=== PATIENT | male | born 1950 | race Caucasian/White ===

== ENCOUNTER → 2020-06-25 08:55 | Outpatient (REF) | payer MEDICARE, SELFPAY ==
--- NOTE | 2020-06-25 08:30 | CA_ITS ---
Transthoracic Echocardiogram Amended Patient (Last, First, Middle): Dom Sood, Gender: Male Date of : 1950 Age: 70 Procedure Date: 06/25/2020 Procedure Type: Transthoracic Echocardiogram Location: OP Height: 177.8 cm Weight: 86.64 kg BSA: 2.05 m2 Heart Rate: bpm BP: 122 / 70 mmHg Online Marketing Manager: Referring MD: Cody Grewal MD Symptoms: s/p AVR, CAD Study Quality: Fair ECG Rhythm: Atrial Fibrillation Conclusions: - The left ventricular systolic function is normal. The visually estimated ejection fraction is between 55-60%. - A bioprosthetic aortic valve is present. The prosthetic aortic valve appears to be functioning normally. - Mild pulmonary hypertension is present. Findings Left Ventricle Normal left ventricular cavity size. There is normal left ventricular wall thickness. The left ventricular systolic function is normal. The visually estimated ejection fraction is between 55-60%. The calculated ejection fraction is 57% by biplane method. There is no evidence of regional wall motion abnormalities. Right Ventricle Mildly increased right ventricular cavity size. There is normal right ventricular systolic function. Atria The left atrium is moderately dilated. The right atrium is normal in size. Aortic Valve A bioprosthetic aortic valve is present. The prosthetic aortic valve appears to be functioning normally. There is no aortic valve regurgitation. Mitral Valve There is moderate mitral annular calcification. There is mild mitral valve regurgitation. There is no mitral valve stenosis. Pulmonic Valve The pulmonic valve was not well visualized. Tricuspid Valve Normal tricuspid valve structure. There is mild tricuspid valve regurgitation. The right ventricular systolic pressure is 45 mmHg. Mild pulmonary hypertension is present. Great Vessels The aorta was not well visualized. Venous The inferior vena cava is normal in size and collapses greater than 50% with inspiration. Pericardium/Pleural There is no evidence of pericardial effusion. Prior Study Comparison Changes noted compared to prior study dated: 06/24/2019. RV function appears improved. Measurements 2D Linear Measurements IVSd: 0.96 0.6-0.9/0.6-1.0 cm LVIDd: 4.88 3.9-5.3/4.2-5.9 cm LVIDd Index: 2.38 2.4-3.2/2.2-3.1 cm/m2 LVIDs: 3.32 2.0-3.6 cm LVPWd: 1.05 0.7-1.1 cm Ao Root: 3.30 2.1-3.5 cm LA Diam: 4.90 2.7-3.8/3.0-4.0 cm LAIDs Index: 2.39 1.5-2.3 cm/m2 LV Mass: 219.60 67-162/88-224 g LV Mass Index: 107.12 43-95/49-115 g/m2 LVOT Diam: 1.90 3.0+(-)1.3 cm 2D Volumes LA Vol: 41.90 2D Systolic Function EF 4C: 58.50 >55% EF 2C: 57.70 >55% EF BiP: 57.30 >55% Mitral Valve MV VTI: 0.43 MV Pk Rojelio: 1.69 MV Mn Rojelio: 0.79 MV Pk Grad: 11.00 MV Mn Grad: 3.00 MV Pk E: 1.59 MV Decel Time: 229.00 E'Lateral: 10.20 E'Medial: 3.58 E/E' Med: 44.40 E/E' Lat: 15.60 PHT: 67.00 MVA PHT: 3.28 MVA Continuity: 1.47 Decel [place]: 6.93 Aortic Valve AoV Pk Rojelio: 2.03 AoV Mn Rojelio: 1.39 AoV VTI: 0.46 AoV Pk Grad: 16.00 Aov Mn Grad: 9.00 SEJAL Cont.VTI: 1.36 LVOT LVOT Pk Rojelio: 0.97 LVOT Mn Rojelio: 0.70 LVOT VTI: 0.22 LVOT Pk Grad: 4.00 LVOT Mn Grad: 2.00 LVOT Diam: 1.90 LVOT Area: 2.84 Diastolic Function MV Pk E: 1.59 E'Medial: 3.58 E/E' Med: 44.40 E' Laterial: 10.20 E/E' Lat: 15.60 Tricuspid Valve TR Pk Rojelio: 3.20 TR Pk Grad: 41.00 RVSP: 45.00 Great Vessels Aorta Ao Root-2D: 3.30 2.0-3.7 cm Pulmonary Valve PV Pk Rojelio: 0.68 Peak PV Grad: 2.00 Updated in Other Vendor System with Status of Final Cody Grewal MD electronically signed on 05/08/2021 4:06:15 PM with status of Final
== END ==
LOC: HO.CARD 08:55
PROVIDERS: PCP Internal Medicine; Visit Provider Internal Medicine
DX: I35.8 Other nonrheumatic aortic valve disorders (principal); I48.91 Unspecified atrial fibrillation; Z95.1 Presence of aortocoronary bypass graft; Z95.3 Presence of xenogenic heart valve
CPT/HCPCS: 93306

== ENCOUNTER 2020-06-27 07:52 | Outpatient (REF) | payer MEDICARE, SELFPAY ==
--- NOTE | 2020-06-27 08:00 | CT_ITS ---
EXAMINATION: CT CHEST WITHOUT CONTRAST CLINICAL INFORMATION: Pulmonary nodule COMPARISON: CT chest 03/27/2020 TECHNIQUE: Multidetector volumetric CT imaging of the chest was done. Axial MIP volume rendering provided. Sagittal and coronal reformatted images were obtained. This CT examination was performed using dose optimization techniques as appropriate, variously including the following: *Automated exposure control *Adjustment of mA and/or kV according to patient size (this includes techniques or standardized protocols for targeted exams where dose is matched to indication/reason for exam; i.e. extremities or head) *Use of iterative reconstruction technique DLP: 301 mGy-cm FINDINGS: LUNGS: The rounded soft tissue opacity at the inferolateral aspect of the fibula which is pleural-based, at the junction of the major fissure and left hemidiaphragm measures slightly smaller in the AP dimension, 2.7 cm versus 2.9 cm on the sagittal reformats. This structure has a broad junction with the pleura, and there is a small amount of loculated pleural fluid in this location with slight pleural thickening which is unchanged. Similar-appearing pleural-based soft tissue structure with underlying pleural fluid at the posteromedial aspect of the left lower lobe is also again demonstrated. This measures slightly smaller in transverse dimension. The underlying fluid/effusion has slightly decreased in size, again with mild thickening of the surrounding pleura. Areas of subpleural interlobular thickening suggesting interstitial lung disease remain stable. There is no new abnormality. MEDIASTINUM: No mediastinal or hilar lymphadenopathy. No pericardial effusion. Aortic valve prosthesis and extensive mitral annular calcifications. PLEURA: Small loculated left pleural effusions as described. AXILLA: No lymphadenopathy. UPPER ABDOMEN: Unremarkable. OSSEOUS STRUCTURES: Unremarkable. IMPRESSION: The pleural-based soft tissue structures with underlying pleural fluid and pleural thickening in the inferior lingula and posteromedial left lower lobe have slightly decreased in size since 03/27/2020, and most likely represent areas of rounded atelectasis. A PET/CT or follow-up chest CT in 6 months is recommended as continued follow-up. No new abnormalities.
== END 2020-06-27 07:53 | disposition home or self-care (01) ==
LOC: HO.CT 07:52
PROVIDERS: PCP Internal Medicine; Visit Provider Surgery
DX: R91.1 Solitary pulmonary nodule (principal); R93.89 Abnormal findings on diagnostic imaging of other specified body structures
CPT/HCPCS: 71250

== ENCOUNTER → 2020-07-18 13:33 | Outpatient (BNVA) | payer MEDICARE, SELFPAY | PROVIDERS: PCP Internal Medicine; Visit Provider Internal Medicine | DX: I48.19 Other persistent atrial fibrillation (principal); I12.9 Hypertensive chronic kidney disease with stage 1 through stage 4 chronic kidney disease, or unspecified chronic kidney disease; E11.22 Type 2 diabetes mellitus with diabetic chronic kidney disease; N18.9 Chronic kidney disease, unspecified; I35.8 Other nonrheumatic aortic valve disorders; E78.5 Hyperlipidemia, unspecified; D75.82 Heparin induced thrombocytopenia (HIT); K92.2 Gastrointestinal hemorrhage, unspecified; Z95.3 Presence of xenogenic heart valve; Z95.1 Presence of aortocoronary bypass graft; Z98.890 Other specified postprocedural states | CPT/HCPCS: 99212 ==

== ENCOUNTER → 2020-07-27 09:29 | Outpatient (BNVA) | payer MEDICARE, SELFPAY | PROVIDERS: PCP Internal Medicine; Referring Provider Internal Medicine; Visit Provider Surgery | DX: Z76.89 Persons encountering health services in other specified circumstances (principal) ==

== ENCOUNTER → 2020-09-11 10:00 | Outpatient (BNVA) | payer MEDICARE, SELFPAY | PROVIDERS: PCP Internal Medicine; Visit Provider Internal Medicine | DX: I48.19 Other persistent atrial fibrillation (principal); Z95.3 Presence of xenogenic heart valve; Z95.1 Presence of aortocoronary bypass graft; I12.9 Hypertensive chronic kidney disease with stage 1 through stage 4 chronic kidney disease, or unspecified chronic kidney disease; E11.22 Type 2 diabetes mellitus with diabetic chronic kidney disease; N18.9 Chronic kidney disease, unspecified; D75.82 Heparin induced thrombocytopenia (HIT); E78.5 Hyperlipidemia, unspecified; Z79.82 Long term (current) use of aspirin; Z79.01 Long term (current) use of anticoagulants | CPT/HCPCS: 99212 ==

== ENCOUNTER 2020-11-08 08:48 | Outpatient (REF) | payer MEDICARE, SELFPAY ==
[2020-11-08 10:20] LABS: Blood Urea Nitrogen 28 mg/dL (9-16); Estimated Glomerular Filt Rate 51
[2020-11-08 10:23] LABS: Alanine Aminotransferase 14 U/L (0-40); Alkaline Phosphatase 172 U/L (39-117); Aspartate Amino Transferase 15 U/L (5-37); Bilirubin Direct 0.4 mg/dL (0.0-0.5); Bilirubin Total 0.9 mg/dL (0.0-1.0); Cholesterol 166 mg/dL; HDL Cholesterol 25 mg/dL; LDL Cholesterol Calculated 128 mg/dl; Total Protein 7.7 g/dL (6.5-8.0); Triglycerides 69 mg/dL
== END 2020-11-08 08:49 | disposition home or self-care (01) ==
LOC: HO.LAB 08:48
PROVIDERS: PCP Internal Medicine; Referring Provider Internal Medicine; Visit Provider Internal Medicine
DX: R79.89 Other specified abnormal findings of blood chemistry (principal); I25.10 Atherosclerotic heart disease of native coronary artery without angina pectoris; E78.5 Hyperlipidemia, unspecified; Z95.1 Presence of aortocoronary bypass graft
CPT/HCPCS: 36415; 80061; 80076; 82565; 84520

== ENCOUNTER 2020-11-28 10:16 | Outpatient (REF) | payer MEDICARE, SELFPAY ==
[2020-11-28 11:40] LABS: Estimated Average Glucose 243 mg/dL; Hemoglobin A1c % 10.1 %
[2020-11-28 11:47] LABS: Alanine Aminotransferase 12 U/L (0-40); Alkaline Phosphatase 176 U/L (39-117); Anion Gap 12 (12-20); Aspartate Amino Transferase 17 U/L (5-37); Bilirubin Total 1.1 mg/dL (0.0-1.0); Blood Urea Nitrogen 37 mg/dL (9-16); Carbon Dioxide 25 mmol/L (22-29); Chloride 102 mmol/L (96-108); Cholesterol 110 mg/dL; Estimated Glomerular Filt Rate 38; Glucose Random 291 mg/dL (60-115); HDL Cholesterol 24 mg/dL; LDL Cholesterol Calculated 67 mg/dl; Potassium 4.2 mmol/L (3.3-5.1); Sodium 135 mmol/L (135-145); Triglycerides 95 mg/dL
[2020-11-28 12:03] LABS: Creatinine Urine 54.73 mg/dL; Microalbum/Creatinine Ratio Ur 158.9 ug/mg cr
[2020-11-28 12:06] LABS: Thyroid Stimulating Hormone 2.87 uIU/mL (0.32-4.0)
== END 2020-11-28 10:17 | disposition home or self-care (01) ==
LOC: HO.LAB 10:16
PROVIDERS: PCP Internal Medicine; Visit Provider Nurse Practitioner Family
DX: E11.65 Type 2 diabetes mellitus with hyperglycemia (principal)
CPT/HCPCS: 36415; 80053; 80061; 82043; 83036; 84443

== ENCOUNTER → 2021-01-09 09:11 | Outpatient (BNVA) | payer MEDICARE, SELFPAY | PROVIDERS: PCP Internal Medicine; Visit Provider Internal Medicine | DX: I35.8 Other nonrheumatic aortic valve disorders (principal); I48.19 Other persistent atrial fibrillation; E11.22 Type 2 diabetes mellitus with diabetic chronic kidney disease; I12.9 Hypertensive chronic kidney disease with stage 1 through stage 4 chronic kidney disease, or unspecified chronic kidney disease; N18.9 Chronic kidney disease, unspecified; D75.82 Heparin induced thrombocytopenia (HIT); K92.2 Gastrointestinal hemorrhage, unspecified; Z95.1 Presence of aortocoronary bypass graft; Z95.3 Presence of xenogenic heart valve | CPT/HCPCS: 99212 ==

== ENCOUNTER 2021-01-15 08:14 | Outpatient (REF) | payer MEDICARE, SELFPAY ==
--- NOTE | ~2021-01-15 | CT_ITS ---
EXAMINATION: CT CHEST WITHOUT CONTRAST CLINICAL INFORMATION: Pulmonary nodule COMPARISON: Previous chest CT most recent June 2020 TECHNIQUE: Multidetector volumetric CT imaging of the chest was done. Axial MIP volume rendering provided. Sagittal and coronal reformatted images were obtained. This CT examination was performed using dose optimization techniques as appropriate, variously including the following: *Automated exposure control *Adjustment of mA and/or kV according to patient size (this includes techniques or standardized protocols for targeted exams where dose is matched to indication/reason for exam; i.e. extremities or head) *Use of iterative reconstruction technique DLP: 237 mGy-cm FINDINGS: LUNGS: There is volume loss to the left lower lobe. There is a 2.5 cm nodule in the inferior segment of the lingula axial image 37 series 3 that is stable. This is continuous with a triangular-shaped and pleural-based soft tissue extending to the lateral pleural surface and left pleural fissure. This area measures 4.2 x 5.6 cm axial image 38 series 2 and likely represents loculated pleural fluid and is unchanged. There is a peripheral or subpleural density in the posterior basal left lower lobe. This measures 1.1 x 4.2 cm in AP and transverse dimension axial image 33 series 4. This has a swirled central and bronchovascular pattern is not characteristic of round atelectasis. This is unchanged. There is adjacent left small loculated pleural effusion and pleural thickening. MEDIASTINUM: The heart is enlarged. There is a prosthetic aortic valve. There is coronary artery calcification question post-CABG changes. There is no pericardial effusion. There are small mediastinal lymph nodes. No enlarged lymph nodes are seen. PLEURA: There is a small loculated left pleural effusion with a split pleural sign that appears unchanged. There is no right pleural effusion. AXILLA: No lymphadenopathy. UPPER ABDOMEN: Unremarkable. OSSEOUS STRUCTURES: There are degenerative changes of the spine. United median sternotomy. CT/CT chest wo con IMPRESSION: Stable volume loss to the left lower lobe. Stable round atelectasis at the knee in the inferior segment of the lingula and posterior basal left lower lobe and chronic small loculated left pleural effusion. Enlarged heart. Postoperative changes from aortic valve replacement and probable CABG.
== END 2021-01-15 08:15 | disposition home or self-care (01) ==
LOC: HO.CT 08:14
PROVIDERS: Visit Provider Surgery
DX: R91.1 Solitary pulmonary nodule (principal)
CPT/HCPCS: 71250

== ENCOUNTER → 2021-02-01 08:45 | Outpatient (BNVA) | payer MEDICARE, SELFPAY | PROVIDERS: PCP Internal Medicine; Visit Provider Surgery | DX: R91.1 Solitary pulmonary nodule (principal); I48.19 Other persistent atrial fibrillation; Z79.899 Other long term (current) drug therapy; Z79.4 Long term (current) use of insulin; Z95.1 Presence of aortocoronary bypass graft; Z95.3 Presence of xenogenic heart valve | CPT/HCPCS: 99212 ==

== ENCOUNTER 2021-02-12 10:10 | Outpatient (REF) | payer MEDICARE, SELFPAY | END 2021-02-12 10:11 | disposition home or self-care (01) | LOC: HO.PET 10:10 | PROVIDERS: Visit Provider Surgery | DX: Z13.89 Encounter for screening for other disorder (principal) ==

== ENCOUNTER 2021-02-14 11:48 | Day surgery (SDC) | payer MEDICARE, SELFPAY ==
[2021-02-14] VITALS (7 sets, daily range): BP systolic 134–161; BP diastolic 68–80; PULSE 54–82; RESP 18–22; TEMP 36.6; O2SAT 94–96; BMI 29.7
--- NOTE | ~2021-02-14 | XR_ITS ---
EXAMINATION: XR CHEST CLINICAL INFORMATION: Status post lingula lung biopsy COMPARISON: CT earlier on same day as well as January 15, 2021 and chest x-ray of March 27, 2020 TECHNIQUE: Respiratory infection. AP portable views of the chest. FINDINGS: There is a left base density is present with some pleural thickening adjacent to it. No pneumothorax is evident. No significant pleural effusion. Heart normal size. No evidence of pulmonary edema. Status post median sternotomy. XR/XR chest 2V IMPRESSION: No post lung biopsy pneumothorax appreciated.
--- NOTE | ~2021-02-14 | CT_ITS ---
PROCEDURE: CT GUIDED BIOPSY, LUNG CLINICAL INFORMATION: Solitary pulmonary nodule in the lingula COMPARISON: CT chest 01/15/2021 TECHNIQUE: Following explaining CT fluoroscopy-guided lingular mass biopsy procedure, benefits and risks, written consent was obtained. Patient was placed supine on fluoroscopy table and preliminary CT imaging was obtained through the left lower chest. An optimal site was selected along the left lateral chest wall and marked. A large area of left lateral chest was cleaned in usual sterile manner with 2% Chlorhexidine solution. Sterile drape applied postprocedure. 1% lidocaine was injected. Through a small skin incision a 22-gauge guide needle was advanced. However, the guide needle could not be advanced due to interposed ribs in between. An optimal site was selected slightly lower down several times and 1% lidocaine was administered. The 22-gauge guide needle was maneuvered between the rib spaces into the left pleural space and several coaxial biopsies were obtained through the left lingular mass. Also a 22-gauge biopsy gun was administered and a 2 pass biopsy was performed. Postprocedure guide needle was withdrawn and repeat imaging was performed through the left lower lobe and lingula. Complete hemostasis was achieved at the puncture site. Sterile bandage applied post procedure. Patient tolerated procedure extremely well. Conscious sedation was utilized during exam and patient monitored for [address] examination was performed using dose optimization techniques as appropriate, variously including the following: *Automated exposure control *Adjustment of mA and/or kV according to patient size (this includes techniques or standardized protocols for targeted exams where dose is matched to indication/reason for exam; i.e. extremities or head) *Use of iterative reconstruction technique DLP: 541 mGy-cm FINDINGS: On preliminary CT imaging there is a 2.6 x 2.4 cm lingular round mass/nodule/consolidation. CT fluoroscopy-guided lingular mass/nodule coaxial fine-needle biopsy performed at least 5 times with 2 core biopsies performed with a biopsy gun. Postprocedure CT reveals no visible pneumothorax. There is a loculated left lateral pleural effusion. Soft tissue density along the left posterior segment lower lobe atelectasis and/or loculated pleural effusion is stable. CT/CT biopsy lung LT IMPRESSION: CT fluoroscopy-guided lingular mass/nodule fine-needle and core biopsy performed. Preliminary pathology results revealed hemorrhagic cells. No pathological cells visualized. Further pathology evaluation to follow.
[2021-02-14 12:06] LABS: Glucose, Whole Blood 139 mg/dL (60-115)
[2021-02-14 12:10] LABS: MANUAL DIFF FLAG NO
[2021-02-14 12:13] LABS: Basophils Absolute Auto 0.1 X10*3/uL (0.0-0.2); Basophils Percent Auto 0.7 % (0-2); Eosinophils Absolute Auto 0.2 X10*3/uL (0.0-0.4); Eosinophils Percent Auto 2.6 % (0-4); Hematocrit 41.6 % (42-52); Hemoglobin 13.3 g/dl (14.0-18.0); Imm Gran Abs Auto 0.03 X10*3/uL (0.00-0.03); Imm Gran Pct Auto 0.4 % (0.0-0.4); Lymphocytes Absolute Auto 1.1 X10*3/uL (1.2-4.9); Mean Corpuscular Hemoglobin 28.2 pg (27.0-33.0); Mean Corpuscular Volume 88.1 fL (80-98); Mean Platelet Volume 10.8 fL (9.4-12.4); Monocytes Absolute Auto 0.7 X10*3/uL (0.1-1.2); Monocytes Percent Auto 8.6 % (2-11); Neutrophils Absolute Auto 6.1 X10*3/uL (2.0-8.3); Neutrophils Percent Auto 74.7 % (45-73); Platelet Count 181 X10*3/uL (160-400); Red Blood Count 4.72 X10*6/uL (4.60-5.80); White Blood Count 8.2 X10*3/uL (4.8-10.8)
[2021-02-14 12:18] LABS: INTERNATIONAL NORM RATIO 1.3 (0.9-1.1); Prothrombin Time 14.9 SEC (10.8-13.0)
[2021-02-14 12:38] LABS: Anion Gap 14 (12-20); Blood Urea Nitrogen 26 mg/dL (9-16); Carbon Dioxide 22 mmol/L (22-29); Chloride 107 mmol/L (96-108); Creatinine Clr Calc Pharmacy 53.9; Estimated Glomerular Filt Rate 51; Sodium 139 mmol/L (135-145)
== END 2021-02-14 17:06 | disposition home or self-care (01) ==
PROVIDERS: Radiology Diagnostic Radiology; PCP Internal Medicine; Visit Provider Radiology Diagnostic Radiology
DX: R91.1 Solitary pulmonary nodule (principal); E11.22 Type 2 diabetes mellitus with diabetic chronic kidney disease; I12.9 Hypertensive chronic kidney disease with stage 1 through stage 4 chronic kidney disease, or unspecified chronic kidney disease; N18.9 Chronic kidney disease, unspecified; Z79.4 Long term (current) use of insulin; I48.19 Other persistent atrial fibrillation; Z79.01 Long term (current) use of anticoagulants; Z79.899 Other long term (current) drug therapy; Z95.1 Presence of aortocoronary bypass graft; Z95.3 Presence of xenogenic heart valve; Z88.8 Allergy status to other drugs, medicaments and biological substances; Z88.2 Allergy status to sulfonamides
CPT/HCPCS: 10009; 32408; 36415; 71046; 80051; 82565; 82947; 84520; 85025; 85610; 85730; 88172; 88173; 88177; 88305; 99152; 99153; J2250; J3010

== ENCOUNTER 2021-02-19 11:03 | Outpatient (REF) | payer MEDICARE, SELFPAY ==
--- NOTE | ~2021-02-19 | PE_ITS ---
EXAMINATION: CT PET FUSION SKULL TO THIGH CLINICAL INFORMATION: Solitary pulmonary nodule. COMPARISON: CT chest 01/15/2021. TECHNIQUE: Following intravenous administration of 10.8 mCi of F-18 FDG in left antecubital vein, whole-body emission scan was obtained approximately 90 minutes later. Subsequently 3.75 mm thin transmission scan was obtained without oral or IV contrast. 3-D reconstructions and color fusion was performed on a separate workstation. Serum baseline glucose measures 81 mg/dl. Radiation dose measures DLP 847. FINDINGS: On PET imaging there is no abnormal metabolic activity seen in the lingular round lesion or left lower lobe posterior basal segment. These are likely postsurgical changes or atelectasis. No abnormal activity seen in the lung parenchyma or the mediastinum to suspect any primary or metastatic lesions or lymphadenopathy. There is no abnormal metabolic activity in the skull base or the neck. There is no abnormal metabolic activity seen in the abdomen or pelvis. Normal metabolic activity seen in the kidneys and the bladder. On CT imaging there is persistent round 2.6 cm nodule in the lingula and subpleural density in the posterior basal segment left lower lobe. Rest of lungs are unremarkable. No abnormal mediastinal mass or lymph node seen. There are coronary artery and aortic calcifications. There is median sternotomy sutures from previous intervention. Visualized thyroid lobes, submandibular and parotid glands are symmetrical and unremarkable. The airway is widely patent. No neck mass or lymphadenopathy seen. There are dental amalgam-related extensive artifacts in the oral cavity. Visualized sinuses are clear. No abnormality seen in the visualized brain parenchyma. Visualized liver, spleen, pancreas and bilateral adrenal glands are unremarkable. There is scattered stool seen throughout the colon without significant distention. PET/PET CT fusion skull to thigh IMPRESSION: No abnormal metabolic activity seen in the lingula or the left lower lobe posterior basal segment at this time. These findings most likely represent atelectasis in the lingula and left lower lobe or nonspecific pleural thickening in the left lower lobe posterior basal segment. The findings, however, are stable compared to previous CT 01/15/2021.
== END 2021-02-19 11:04 | disposition home or self-care (01) ==
LOC: HO.PET 11:03
PROVIDERS: PCP Internal Medicine; Visit Provider Surgery
DX: Z13.89 Encounter for screening for other disorder (principal)

== ENCOUNTER → 2021-03-01 09:56 | Outpatient (BNVA) | payer MEDICARE, SELFPAY | PROVIDERS: PCP Internal Medicine; Visit Provider Surgery | DX: R91.1 Solitary pulmonary nodule (principal); Z79.4 Long term (current) use of insulin; Z79.899 Other long term (current) drug therapy | CPT/HCPCS: 99212 ==

== ENCOUNTER → 2021-04-30 09:56 | Outpatient (BNVA) | payer MEDICARE, SELFPAY | PROVIDERS: PCP Internal Medicine; Referring Provider Internal Medicine; Visit Provider Internal Medicine | DX: I35.8 Other nonrheumatic aortic valve disorders (principal); I48.19 Other persistent atrial fibrillation; E78.5 Hyperlipidemia, unspecified; K92.2 Gastrointestinal hemorrhage, unspecified; E11.22 Type 2 diabetes mellitus with diabetic chronic kidney disease; I12.9 Hypertensive chronic kidney disease with stage 1 through stage 4 chronic kidney disease, or unspecified chronic kidney disease; N18.9 Chronic kidney disease, unspecified; Z95.1 Presence of aortocoronary bypass graft; Z95.3 Presence of xenogenic heart valve; D75.82 Heparin induced thrombocytopenia (HIT); Z79.01 Long term (current) use of anticoagulants; Z79.4 Long term (current) use of insulin | CPT/HCPCS: 99212 ==

== ENCOUNTER → 2021-05-03 07:10 | Outpatient (REF) | payer MEDICARE, SELFPAY ==
--- NOTE | 2021-05-03 07:12 | CA_ITS ---
Transthoracic Echocardiogram Patient (Last, First, Middle): Dom Sood, Gender: Male Date of : 1950 Age: 71 Procedure Date: 05/03/2021 Procedure Type: Transthoracic Echocardiogram Location: OP Height: 175.26 cm Weight: 88. kg BSA: 2.04 m2 Heart Rate: bpm BP: 140 / 66 mmHg Hitting Coach: SARAH Mcgrath MD: Cody Grewal MD Symptoms: [facility] – [place] Study Quality: Fair ECG Rhythm: Atrial Fibrillation Conclusions: - The left ventricular systolic function is normal. The visually estimated ejection fraction is between 55-60%. - There is severely decreased right ventricular systolic function. - The left atrium is severely dilated. - A bioprosthetic aortic valve is present. The prosthetic aortic valve appears to be functioning normally. - There is severe mitral annular calcification. - Mild to moderate pulmonary hypertension is present. Findings Left Ventricle Normal left ventricular cavity size. There is mildly increased left ventricular wall thickness. The left ventricular systolic function is normal. The visually estimated ejection fraction is between 55-60%. There is no evidence of regional wall motion abnormalities. Diastolic function is indeterminate on the basis of available data. Right Ventricle Mildly increased right ventricular cavity size. There is severely decreased right ventricular systolic function. TAPSE seems <1cm, but difficult to measure due to atrial fibrillation, PVCs. Atria The left atrium is severely dilated. The right atrium is normal in size. Aortic Valve A bioprosthetic aortic valve is present. The prosthetic aortic valve appears to be functioning normally. The peak aortic velocity is 2.00 m/s with a calculated peak gradient of 16 mmHg. The mean gradient is 9 mmHg. The aortic valve area is 1.73 cm2. Mitral Valve There is severe mitral annular calcification. There is mild mitral valve regurgitation. There is no mitral valve stenosis. mean gradient across the mitral valve 4 mm Hg at 45/Min. Possibly some mitral stenosis. Pulmonic Valve The pulmonic valve was not well visualized. There is trace pulmonic valve regurgitation. Tricuspid Valve Normal tricuspid valve structure. There is mild tricuspid valve regurgitation. The right ventricular systolic pressure is 49 mmHg. Mild to moderate pulmonary hypertension is present. Great Vessels The asc aorta is normal in size. Venous The inferior vena cava is mildly dilated and collapses greater than 50% with inspiration. Pericardium/Pleural There is no evidence of pericardial effusion. Prior Study Comparison No significant change compared to prior study dated: 06/25/2020. Measurements 2D Linear Measurements RVIDd: 3.91 RVIDd Index: 1.92 IVSd: 1.01 0.6-0.9/0.6-1.0 cm LVIDd: 4.93 3.9-5.3/4.2-5.9 cm LVIDd Index: 2.42 2.4-3.2/2.2-3.1 cm/m2 LVIDs: 3.99 2.0-3.6 cm LVPWd: 1.58 0.7-1.1 cm Ao Root: 2.60 2.1-3.5 cm LA Diam: 5.50 2.7-3.8/3.0-4.0 cm LAIDs Index: 2.70 1.5-2.3 cm/m2 LV Mass: 317.65 67-162/88-224 g LV Mass Index: 155.71 43-95/49-115 g/m2 LVOT Diam: 2.20 3.0+(-)1.3 cm 2D Systolic Function EF 4C: 56.70 >55% EF 2C: 52.80 >55% EF BiP: 53.70 >55% Mitral Valve MV VTI: 0.67 MV Pk Rojelio: 2.18 MV Mn Rojelio: 0.86 MV Pk Grad: 19.00 MV Mn Grad: 4.00 PHT: 131.00 MVA PHT: 1.68 MVA Continuity: 1.81 Decel [place]: 4.96 Aortic Valve AoV Pk Rojelio: 2.00 AoV Mn Rojelio: 1.46 AoV VTI: 0.70 AoV Pk Grad: 16.00 Aov Mn Grad: 9.00 SEJAL Cont.VTI: 1.73 LVOT LVOT Pk Rojelio: 1.06 LVOT Mn Rojelio: 0.79 LVOT VTI: 0.32 LVOT Pk Grad: 4.00 LVOT Mn Grad: 3.00 LVOT Diam: 2.20 LVOT Area: 3.80 Right Ventricle TVS' Rojelio: 6.00 Tricuspid Valve TR Pk Rojelio: 3.21 TR Pk Grad: 41.00 RA Press: 8.00 RVSP: 49.00 Great Vessels Aorta Ao Root-2D: 2.60 2.0-3.7 cm Ao Asc: 3.00 2.1-3.4 cm Ao Arch: 3.20 Updated in Other Vendor System with Status of Final Cody Grewal MD electronically signed on 05/04/2021 12:19:16 PM with status of Final
== END ==
LOC: HO.CARD 07:10
PROVIDERS: Visit Provider Internal Medicine
DX: I35.8 Other nonrheumatic aortic valve disorders (principal)
CPT/HCPCS: 93306

== ENCOUNTER → 2021-06-18 12:16 | Outpatient (BNVA) | payer MEDICARE, SELFPAY | PROVIDERS: PCP Internal Medicine; Referring Provider Internal Medicine; Visit Provider Internal Medicine | DX: I35.8 Other nonrheumatic aortic valve disorders (principal); I48.19 Other persistent atrial fibrillation; E11.8 Type 2 diabetes mellitus with unspecified complications; E11.22 Type 2 diabetes mellitus with diabetic chronic kidney disease; I12.9 Hypertensive chronic kidney disease with stage 1 through stage 4 chronic kidney disease, or unspecified chronic kidney disease; N18.9 Chronic kidney disease, unspecified; E78.5 Hyperlipidemia, unspecified; D75.82 Heparin induced thrombocytopenia (HIT); K92.2 Gastrointestinal hemorrhage, unspecified; Z95.1 Presence of aortocoronary bypass graft | CPT/HCPCS: 93005; 99212 ==

== ENCOUNTER 2021-09-15 12:48 | Inpatient (IN) | payer MEDICARE, SELFPAY ==
[2021-09-15] VITALS (7 sets, daily range): BP systolic 103–138; BP diastolic 44–68; PULSE 75–108; RESP 18–34; TEMP 37.1–38.8; O2SAT 91–96
--- NOTE | ~2021-09-15 | MR_ITS ---
EXAMINATION: MR OF THE FOOT WITH AND WITHOUT CONTRAST, LEFT CLINICAL INFORMATION: Wound along the lateral/plantar region of the left foot. Rule out osteomyelitis/foot ulcer. COMPARISON: 04/18/2019 TECHNIQUE: Multiplanar MR imaging was obtained through the left foot on a 1.5 Lilian magnet before and after intravenous administration of 10 mL Gadavist. FINDINGS: Postsurgical changes are evident at the lateral aspect of the midfoot corresponding to resection of the 5th metatarsal. Metal artifact arises at the screws in the 2nd and 3rd metatarsal heads. There is mild edema signal within the 3rd and 4th metatarsal bases at the 3rd and 4th TMT joints which is favored to be degenerative in nature, related to the degenerative arthritis at the articulation between the bases as well as the degenerative arthritis of both the 3rd and 4th TMT joints. No fractures are identified in these regions. No specific findings of osteomyelitis. Cortical irregularity at the lateral margin of the 4th metatarsal base is likely related to a previously degenerated articulation with the 5th metatarsal base. There is mild osteoarthritis in the talocrural and subtalar joints as well as the navicular cuneiform and MTP joints. There is subcutaneous edema and mild enhancement at the lateral aspect of the midfoot without an associated abscess. No fluid collections. Punctate foci of micrometallic artifact in this region correspond to postoperative change. There is subtle skin irregularity at the plantar margin of the midfoot deep to the 5th metatarsal base which may correspond to a local soft tissue ulceration. This measures approximately 1.6 x 1.2 cm in area. There is atrophy and fatty replacement of the intrinsic foot musculature. Increased T2 signal within the musculature is related to denervation edema. Central band of the plantar fascia is thickened and irregular. MR/MR foot LT wo/w con IMPRESSION: Probable small skin ulceration at the plantar aspect of the midfoot at the level of the 4th metatarsal base. No evidence of osteomyelitis or abscess.
--- NOTE | ~2021-09-15 | CT_ITS ---
EXAMINATION: CT HEAD WITHOUT CONTRAST CT CERVICAL SPINE WITHOUT CONTRAST CLINICAL INFORMATION: Status post fall. Trauma to the head and neck. COMPARISON: CT head and cervical spine of 04/15/2019 TECHNIQUE: Multidetector volumetric CT imaging of the head and cervical spine is acquired without intravenous contrast administration. Postprocessing is performed at a dedicated workstation. Multiplanar reformatted images are submitted. This CT scan was performed using dose optimization techniques as appropriate to a performed exam including the following: *Automated exposure control *Adjustment of mA and/or kV according to patient size (this includes techniques or standardized protocols for targeted exams were dose is matched to indication/reason for exam; i.e. extremities or head) *Use of iterative reconstruction technique DLP: 1160 mGy-cm. FINDINGS: CT HEAD: There is [id number] global volume loss with proportionate dilatation of the ventricles and cortical sulci. Miller to white matter differentiation is well preserved. There is no evidence of acute intracranial hemorrhage, midline shift, mass effect, acute territorial infarction or abnormal extra-axial fluid collection. Osseous canal rim is intact. No significant calvarial soft tissue swelling or hematoma is noted. The visualized paranasal sinuses and mastoid air cells are well-aerated. Middle ear cavities are well-aerated. Moderate calcific atherosclerosis cysts of the internal carotid and vertebral arteries. CT CERVICAL SPINE: Severe degenerative disc disease is noted at C5-C6 with erosive and sclerotic endplate marrow changes and severe narrowing of the intervertebral disc space. There is minimal posterior subluxation of C5 over C6. The vertebral body heights and alignment are otherwise maintained. Posterior elements are intact and in normal alignment. Atlantoaxial and atlantooccipital alignments are maintained. No evidence of tight central canal or neural foraminal stenosis. No evidence of prevertebral soft tissue swelling. The airway is patent. No focal thyroid nodule. Evaluation of the lung apices is somewhat limited due to motion artifacts; however, no acute abnormality is noted. CT/CT head/brain wo con IMPRESSION: 1. No evidence of acute intracranial abnormality. Specifically there is no evidence of acute intracranial hemorrhage. 2. No evidence of acute fracture or traumatic subluxation in the cervical spine. Severe disc space narrowing with associated erosive and sclerotic endplate marrow changes at C5-C6 with minimal posterior subluxation of C5 over C6, findings are new/significantly increased compared to previous CT scan of 04/15/2019 and most probably represents severe degenerative changes. Another possibility would be sequela of infectious or inflammatory process, recommend clinical correlation for history of prior infectious/inflammatory process in the region.
--- NOTE | ~2021-09-15 | CT_ITS ---
EXAMINATION: CT HEAD WITHOUT CONTRAST CT CERVICAL SPINE WITHOUT CONTRAST CLINICAL INFORMATION: Status post fall. Trauma to the head and neck. COMPARISON: CT head and cervical spine of 04/15/2019 TECHNIQUE: Multidetector volumetric CT imaging of the head and cervical spine is acquired without intravenous contrast administration. Postprocessing is performed at a dedicated workstation. Multiplanar reformatted images are submitted. This CT scan was performed using dose optimization techniques as appropriate to a performed exam including the following: *Automated exposure control *Adjustment of mA and/or kV according to patient size (this includes techniques or standardized protocols for targeted exams were dose is matched to indication/reason for exam; i.e. extremities or head) *Use of iterative reconstruction technique DLP: 1160 mGy-cm. FINDINGS: CT HEAD: There is [id number] global volume loss with proportionate dilatation of the ventricles and cortical sulci. Miller to white matter differentiation is well preserved. There is no evidence of acute intracranial hemorrhage, midline shift, mass effect, acute territorial infarction or abnormal extra-axial fluid collection. Osseous canal rim is intact. No significant calvarial soft tissue swelling or hematoma is noted. The visualized paranasal sinuses and mastoid air cells are well-aerated. Middle ear cavities are well-aerated. Moderate calcific atherosclerosis cysts of the internal carotid and vertebral arteries. CT CERVICAL SPINE: Severe degenerative disc disease is noted at C5-C6 with erosive and sclerotic endplate marrow changes and severe narrowing of the intervertebral disc space. There is minimal posterior subluxation of C5 over C6. The vertebral body heights and alignment are otherwise maintained. Posterior elements are intact and in normal alignment. Atlantoaxial and atlantooccipital alignments are maintained. No evidence of tight central canal or neural foraminal stenosis. No evidence of prevertebral soft tissue swelling. The airway is patent. No focal thyroid nodule. Evaluation of the lung apices is somewhat limited due to motion artifacts; however, no acute abnormality is noted. CT/CT cervical spine wo con IMPRESSION: 1. No evidence of acute intracranial abnormality. Specifically there is no evidence of acute intracranial hemorrhage. 2. No evidence of acute fracture or traumatic subluxation in the cervical spine. Severe disc space narrowing with associated erosive and sclerotic endplate marrow changes at C5-C6 with minimal posterior subluxation of C5 over C6, findings are new/significantly increased compared to previous CT scan of 04/15/2019 and most probably represents severe degenerative changes. Another possibility would be sequela of infectious or inflammatory process, recommend clinical correlation for history of prior infectious/inflammatory process in the region.
--- NOTE | ~2021-09-15 | XR_ITS ---
EXAMINATION: XR CHEST CLINICAL INFORMATION: Central line confirmation COMPARISON: 02/14/2021 TECHNIQUE: Frontal view of the chest was obtained. FINDINGS: Right internal jugular central venous catheter terminates near the cavoatrial junction. Cardiac leads overlie the chest. Median sternotomy wires appear intact. The lungs are well expanded. There is no focal consolidation, edema, or effusion. No pneumothorax. The cardiomediastinal silhouette is unchanged. No acute osseous abnormality. XR/XR chest 1V IMPRESSION: Right internal jugular central venous catheter terminates near the cavoatrial junction. No pneumothorax.
--- NOTE | ~2021-09-15 | XR_ITS ---
EXAMINATION: XR CHEST CLINICAL INFORMATION: Post right upper extremity PICC insertion. COMPARISON: Chest radiograph dated from 09/16/2021. TECHNIQUE: AP view of the chest was obtained. FINDINGS: The tip of the right-sided PICC line appears to terminate at the level of the proximal right atrium. Unchanged prominence of the cardiomediastinal silhouette. Intact sternotomy wires and mediastinal clips. EKG wires overlie the patient. No pneumothorax or pleural effusions. Interstitial prominence is slightly increase since 09/16/2021. No focal airspace opacities. No acute osseous abnormalities. XR/XR chest 1V IMPRESSION: Right-sided PICC line terminates at the level of the proximal right atrium, if indicated consider slight retraction to the level of the cavoatrial junction. Increased interstitial markings since 09/16/2021 of uncertain etiology. Differentials include worsening pulmonary edema or an atypical infectious/inflammatory process of the small airways. No pneumothorax.
--- NOTE | ~2021-09-15 | XR_ITS ---
EXAMINATION: XR FOOT, LEFT CLINICAL INFORMATION: Weak with COMPARISON: None at this time. TECHNIQUE: AP, lateral, and oblique views of the left foot. FINDINGS: Patient is status post resection of the fifth metatarsal bone and proximal phalanx. Screws are seen within the metatarsal heads of the second and third digits with bony deformity. There is significant degenerative change involving the third metatarsophalangeal joint. There is fusion of the second and third proximal interphalangeal joints. There are degenerative changes with spurring seen involving the first through fourth tarsometatarsal joints. No acute fracture appreciated. XR/XR foot LT 2V IMPRESSION: Chronic abnormalities of the left foot without evidence of acute fracture or definite osteomyelitis. MRI may be of help in further evaluation for this.
--- NOTE | ~2021-09-15 | CT_ITS ---
EXAMINATION: CT CHEST, ABDOMEN AND PELVIS WITHOUT CONTRAST CLINICAL INFORMATION: Fall. Posterior chest wall ecchymosis. Left flank pain COMPARISON: CT chest 06/27/2020, 01/15/2021. CT biopsy chest 02/14/2021. PET/CT study 02/19/2021. TECHNIQUE: Multidetector volumetric CT imaging of the chest, abdomen and pelvis was obtained without oral or intravenous contrast. Coronal and sagittal reformatted images are performed at CT scanner [This CT examination was performed using dose optimization techniques as appropriate, variously including the following: *Automated exposure control *Adjustment of mA and/or kV according to patient size (this includes techniques or standardized protocols for targeted exams where dose is matched to indication/reason for exam; i.e. extremities or head) *Use of iterative reconstruction technique] DLP: 944 mGy-cm. FINDINGS: CT CHEST: Lungs: Rounded mass at the left lung base above the diaphragm measuring 2.6 cm.. This was previously biopsied on 02/14/2021. This was FDG negative on PET/CT study 02/19/2021. This has not changed in size since prior studies. Chronic fine subpleural reticular opacities at the anterior right middle lobe adjacent to the diaphragm at the lung base. No acute airways disease. Mediastinum: No significant lymphadenopathy. There is no pericardial effusion. There are calcifications of the aorta. No aneurysm of aorta. There are calcifications of the mitral valve annulus. Status post aortic valve replacement. Pleura: Small volume of loculated pleural effusion at left lung base with pleural thickening unchanged since prior studies. Axilla: No lymphadenopathy. CT ABDOMEN AND PELVIS: Liver, Gallbladder and Biliary Tree: The liver is normal in size, shape, and attenuation. No focal hepatic lesion or biliary ductal dilatation is present. The gallbladder is unremarkable with no evidence of radiopaque gallstones, gallbladder wall thickening, or obvious pericholecystic inflammatory changes. Pancreas: No acute change of the pancreas. No mass. No pancreatic duct dilatation. Spleen: Spleen normal in size and contour. No focal lesion. Adrenal Glands: Adrenal glands are normal in size. No focal mass. Kidneys and Ureters: The kidneys are normal in size, shape, and attenuation. No hydronephrosis, hydroureter, or calculi seen. No perinephric stranding. 1 cm exophytic cyst lower pole right kidney stable since prior studies, 04/19/2019. Density measurement 2 Hounsfield units. No follow-up imaging is recommended for simple renal cyst.. Bladder: Unremarkable. Gastrointestinal Tract: The small and large bowel are unremarkable. The appendix is nonvisualized Mesentery: No focal inflammation. No free fluid. No free air. Abdominal Wall: No significant hernia is appreciated. Lymph Nodes: Normal. Vascular: There are vascular calcifications of the aorta and iliac arteries and also of the SMA. There is no aneurysm. Pelvic Viscera: Prostate measures 4.5 cm transverse. Osseous Structures: Multilevel degenerative spondylosis of the spine. Status post median sternotomy. No suspicious osseous lesion. No fractures. CT/CT abdomen pelvis wo con IMPRESSION: 1. No acute abnormality of the chest, abdomen or pelvis. 2. Stable previously biopsied mass in the lingula at the left lung base. 3. Persistent small loculated pleural fluid collection at the posterior left lung base.
--- NOTE | 2021-09-15 13:03 | ECG_ITS ---
Test Reason : WEAKNESS Blood Pressure : / mmHG Vent. Rate : 106 BPM Atrial Rate : 000 BPM P-R Int : 000 ms QRS Dur : 124 ms QT Int : 358 ms P-R-T Axes : 000 -49 022 degrees QTc Int : 475 ms Atrial fibrillation with rapid ventricular response Left anterior fascicular block Left ventricular hypertrophy with QRS widening ( Abran product , Romhilt-Rodriguez ) Abnormal ECG When compared with ECG of 16-SEP-2019 23:29, QT has lengthened Referred By: Generic ED Physician Electronically Signed By:Elvin Mancilla
--- NOTE | 2021-09-15 13:14 | ED_ITS ---
HPI - General Adult General Chief complaint: General Medical Stated complaint: lethargy x3 days Time Seen by Provider: 09/15/21 12:51 Source: patient and EMS Mode of arrival: EMS Limitations: no limitations History of Present Illness HPI narrative: 71-year-old male with a history of coronary artery disease s/p CABG x3/AVR, chronic kidney disease not on dialysis, diabetes, hyperlipidemia, hypertension, AFib on Eliquis, diabetes here with reports of generalized weakness and malaise with chills the last 3 days. Patient tells me that 2-3 days ago he had a slip and fall on the ice landing on his upper back and left hip. He denies any head strike or loss of consciousness. He is complaining of some back pain and left hip pain. Difficulty with ambulating at home due to feeling weak and tired. No cough, shortness of breath, fevers. Patient has had some chills. No vomiting, diarrhea, vision changes. Related Data Home Medications Medication Instructions Recorded Confirmed atorvastatin 80 mg tablet 80 mg PO DAILY 07/18/20 09/15/21 insulin glargine 100 unit/mL (3 22 unit SUBCUT DAILY 07/18/20 09/15/21 mL) subcutaneous pen levothyroxine 50 mcg tablet 50 mcg PO Q2D@0630 07/18/20 09/15/21 magnesium oxide 400 mg (241.3 mg 400 mg PO TID 07/18/20 09/15/21 magnesium) tablet insulin lispro 100 unit/mL See Protocol SUBCUT QIDACHS 07/26/20 09/15/21 subcutaneous pen (Humalog KwikPen (U-100) Insulin) tamsulosin 0.4 mg capsule (Flomax) 0.4 mg PO DAILY 07/26/20 09/15/21 omeprazole 20 mg capsule,delayed 20 mg PO BID@0630,1630 01/09/21 09/15/21 release blood sugar diagnostic #10 nelly 02/01/21 04/30/21 blood-glucose meter #1 nelly 02/01/21 04/30/21 pen needle, diabetic 32 gauge x #50 nelly 02/01/21 04/30/21 ezetimibe 10 mg tablet (Zetia) 10 mg PO BEDTIME 06/18/21 09/15/21 Previous Rx's Medication Instructions Recorded metoprolol tartrate 25 mg tablet 25 mg PO BID #180 tab 01/22/21 lisinopril 10 mg tablet 10 mg PO DAILY #30 tab 06/18/21 apixaban 5 mg tablet (Eliquis) 5 mg PO BID #60 tab 07/22/21 Allergies Allergy/AdvReac Type Severity Reaction Status Date / Time Heparin Analogues Allergy Severe HIT Verified 06/18/21 12:31 [HEPARIN ANALOGUES] acetaminophen [From TYLENOL] Allergy Unknown UNKNOWN Verified 06/18/21 12:31 insulin glargine Allergy Unknown Toujeo- Verified 06/18/21 12:31 diarrhea Sulfa (Sulfonamide Allergy Unknown HIVES Verified 06/18/21 12:31 Antibiotics) [SULFA (SULFONAMIDE ANTIBIOTICS)] Review of Systems Review of Systems: Yes all other systems are reviewed and are negative Constitutional: Constitutional: Reports no additional constitutional complaints, Denies body ache(s), Reports chills, Denies fever(s), Denies headache(s) and Reports weakness Eyes: Eyes: Reports no additional eye complaints and Denies change in vision ENT: Reports system reviewed and no additional complaints, except as documented, Denies dizziness, Denies headache(s), Denies nasal congestion, Denies nasal discharge and Denies neck pain Cardiovascular: Cardiovascular: Reports no additional cardiovascular complaints, Denies chest pain, Denies leg edema and Denies dyspnea Respiratory: Respiratory: Reports no additional respiratory complaints, Denies cough and Denies dyspnea Gastrointestinal: Gastrointestinal: Reports no additional gastrointestinal complaints, Denies abdominal pain, Denies diarrhea, Denies nausea and Denies vomiting Genitourinary: Genitourinary: Denies urinary incontinence Musculoskeletal: Musculoskeletal: Reports no additional musculoskeletal complaints, Reports back pain, Reports arthralgias, Denies joint swelling, Denies neck pain, Denies numbness and Denies tingling Integumentary/Breasts: Skin/Breast: Reports system reviewed and no additional complaints, except as docu and Denies rash Neurologic: Reports system reviewed and no additional complaints, except as documented, Denies Abnormal speech present, Denies dizziness, Denies headache(s), Denies numbness, Denies tingling and Reports weakness PMFSH Past Medical History Attestation statement: The following information was validated with the patient. Source: old records reviewed and nursing notes reviewed Medical History Chronic kidney disease, unspecified Coronary artery disease Endocarditis of aortic valve Essential hypertension Hemorrhage of gastrointestinal tract, unspecified History of hemodialysis HIT (heparin-induced thrombocytopenia) (~2018) Hyperlipidemia, unspecified Persistent atrial fibrillation Pulmonary nodule Type 2 diabetes mellitus with unspecified complications Surgical History History of cardiac catheterization (~11/17/18) History of lung biopsy (~02/14/21) History of maze procedure Status post aortic valve replacement with bioprosthetic valve (~01/2019) Status post coronary artery bypass graft (~01/2019) Status post foot surgery Family History Family History Father Emphysema, unspecified Mother Cardiovascular disease Social History Social History Alcohol intake: never Patient Tobacco Use Status: Former Tobacco user Use of substances other than those prescribed or required for medical reasons: No Advance Directives: Yes Advance Directives Information Provided: Yes Advance Directives on File: No Advance Directives Date on File: 06/27/20 Physical Exam Vital Signs: Vital Signs: Last Vital Signs Temp 101 F H 09/15/21 17:23 Pulse 84 09/15/21 17:23 Resp 20 09/15/21 15:15 BP 108/59 L 09/15/21 15:15 Pulse Ox 96 09/15/21 15:15 BMI result Body Mass Index 30.0 Const: Other: Lethargic but arouses to verbal and answers all questions appropriately Orientation/consciousness: patient oriented x3 Limitations: no limitations HENMT: Head: Yes normal to inspection Ears: hearing grossly normal bilaterally and TM's normal bilaterally General nose exam: Normal external nose present Face and sinus: Yes normal facial exam Mouth: Normal oral and palatal mucosa present Throat: Yes posterior oropharynx normal, Yes tonsils normal and Yes uvula midline Eyes: General: appearance normal, both eyes and all related structures Pupils: Equal, round and reactive pupils present Neck: Neck: Yes normal visual inspection, Yes full ROM, Yes no lymphadenopathy and Yes no meningeal signs Chest: Chest palpation & inspection: normal inspection of the chest Resp: Effort & Inspection: normal respiratory effort Auscultation: clear to auscultation bilaterally Cardio: Rate: regular rate Rhythm: regular rhythm Peripheral pulses: Peripheral pulses 2+ throughout GI: Inspection: Yes normal to inspection Palpation (GI): Soft to palpation and nontender Auscultation: normal bowel sounds Back/Spine/Pelvis: Thoracic/Lumbar Spine: thoracic and lumbar spine normal to inspection Back/spine/pelvis image: 1. Ecchymosis with tenderness. No crepitus or bony abnormality 2. Ecchymosis with tenderness. No crepitus or bony abnormality Skin: General skin exam: no rashes or lesions noted Neuro: General: patient oriented x3, no meningeal signs, no focal motor deficits, normal sensation to monofilament and Unable to assess gait Cranial nerves: Yes CN's II-XII intact bilaterally, Yes Equal, round and reactive pupils present, Yes Bilaterally intact EOM present, Yes Nystagmus not present, Yes Normal facial strength present, Yes Midline tongue present and Yes Normal gag reflex present Cognition (Neuro): normal cognition Speech: No Abnormal speech present Gait exam (Neuro): Unable to assess gait Motor exam (neuro): 5/5 motor strength present throughout Sensory Exam: Normal double simultaneous stimulation for sensation Coordination: [id number] test normal Extrem: Other: General: Yes normal to inspection, Yes no pedal edema and Yes no calf tenderness Course Course Course Narrative: 71-year-old male coming from home with complaints of generalized weakness, malaise, chills last 2 days. Patient tells me his slip and fall landing on his upper back and left hip with some pain at site. There is reportedly no head strike or loss of consciousness. On arrival the patient is lethargic but arouses to verbal and is oriented x3. Answers all questions appropriately. He is tachycardic with a low-grade fever. He has ecchymosis over the left posterior chest wall and over the left lower back and hip. Also has a wound to the sole of the left foot. Will check labs, EKG, UA, COVID screen, foot x-ray, CT head/neck/abdomen/pelvis/chest 1710-CT scans are negative for trauma or underlying infection. CT cervical spine notes No evidence of acute fracture or traumatic subluxation in the cervical spine. Severe disc space narrowing with associated erosive and sclerotic endplate marrow changes at C5-C6 with minimal posterior subluxation of C5 over C6, findings are new/significantly increased compared to previous CT scan of 04/15/2019 and most probably represents severe degenerative changes. Another possibility would be sequela of infectious or inflammatory process, recommend clinical correlation for history of prior infectious/inflammatory process in the region. Exam there is no cervical tenderness. There is no midline tenderness, step-offs or deformities. There is full range of motion of the cervical spine. The patient has no pain with movement. No meningeal signs. He is alert and oriented x3. No focal neurological deficits. Less likely from infectious process. -labs show mild leukocytosis. Renal function at baseline, hypo magnesemia which was replaced with IV magnesium, mild elevated troponin. No EKG changes. Plan for repeat 3 hour troponin. Less likely ACS. UA is pending. Consider admission for further w/u if negative d/t extensive history of bacteremia,endocarditis. Doubt meningitis with no nuchal rigidity, no headache, neurological findings or complaints on exam.. 1730-Patient now febrile 101.1. At this time infection is suspected. Unknown source ?from wound on left foot.. Antibiotics ordered. Patient has listed allergy to tylenol but tells me he is able to take this. Discussed patient with Dr Saleem who accepted admission. Family updated. Medical Decision Making Medical Records Medical records reviewed: Yes I reviewed the patient's medical records. Medical records narrative: Extensive medical history. Reviewed chart. Patient has had several admits for right foot osteomyelitis r equiring debridement most recently 03/2021, in additional endocarditis on his artifical aortic valve Lab Data Lab results reviewed: Yes I reviewed the patient's lab results. Result diagrams: 09/15/21 13:46 09/15/21 13:46 Labs: Lab Results 09/15/21 09/15/21 09/15/21 Range/Units 12:58 13:45 13:45 WBC (4.8-10.8) X10*3/uL RBC (4.60-5.80) X10*6/uL Hgb (14.0-18.0) g/dl Hct (42.0-52.0) % MCV (80.0-98.0) fL MCH (27.0-33.0) pg MCHC (31.0-36.0) g/dl RDW (11.0-16.0) % Plt Count (160-400) X10*3/uL MPV (9.4-12.4) fL Immature Gran % (Auto) (0.0-0.4) % Neut % (Auto) (45-73) % Lymph % (Auto) (20-40) % Armstrong % (Auto) (2-11) % Eos % (Auto) (0-4) % Baso % (Auto) (0-2) % Lymph # (Auto) (1.2-4.9) X10*3/uL Armstrong # (Auto) (0.1-1.2) X10*3/uL Eos # (Auto) (0.0-0.4) X10*3/uL Baso # (Auto) (0.0-0.2) X10*3/uL Abs Immat Gran (auto) (0.00-0.03) X10*3/uL Absolute Neuts (auto) (2.0-8.3) x10*3/uL Absolute Nucleated RBC (0.0-0.012) X10*3/uL Nucleated RBC % (auto) (0.0-0.2) /100WBC PT (9.9-13.0) SEC INR (0.9-1.1) Sodium (135-145) mmol/L Potassium (3.3-5.1) mmol/L Chloride (96-108) mmol/L Carbon Dioxide (22-29) mmol/L Anion Gap (12-20) BUN (9-16) mg/dL Creatinine (0.5-1.4) mg/dL Estim Creat Clear Calc Estimated GFR POC Glucose 195 H (60-115) mg/dL Random Glucose (60-115) mg/dL Lactic Acid 2.0 (0.5-2.0) mmol/L Calcium (8.4-10.2) mg/dL Magnesium (1.6-2.6) mg/dL Total Bilirubin (0.0-1.0) mg/dL Direct Bilirubin (0.0-0.5) mg/dL AST (5-37) U/L ALT (0-40) U/L Alkaline Phosphatase (39-117) U/L Total Creatine Kinase (38-174) U/L Troponin I High Sens 60.8 H (<3.5-35.0) ng/L Total Protein (6.5-8.0) g/dL Albumin (3.5-5.0) g/dL Urine Color Urine Appearance Urine pH (5.0-8.0) Ur Specific [place] (1.005-1.025) Urine Protein (NEG-TRACE) MG/DL Urine Glucose (UA) (NEG) MG/DL Urine Ketones (NEG) MG/DL Urine Blood (NEG) Urine Nitrite (NEG) Ur Leukocyte Esterase (NEG) Urine RBC (0) /HPF Urine WBC (0-4) /HPF Ur Squamous Epith Cells /LPF Urine Bacteria /LPF Influenza Type A (PCR) (Negative) Influenza Type B (PCR) (Negative) RSV RNA Qual (PCR) (Negative) SARS-CoV-2 RNA (RT-PCR) (Negative) 09/15/21 09/15/21 09/15/21 Range/Units 13:45 13:46 13:46 WBC 10.9 H (4.8-10.8) X10*3/uL RBC 4.42 L (4.60-5.80) X10*6/uL Hgb 11.9 L (14.0-18.0) g/dl Hct 37.1 L (42.0-52.0) % MCV 83.9 (80.0-98.0) fL MCH 26.9 L (27.0-33.0) pg MCHC 32.1 (31.0-36.0) g/dl RDW 17.1 H (11.0-16.0) % Plt Count 142 L (160-400) X10*3/uL MPV 10.9 (9.4-12.4) fL Immature Gran % (Auto) 0.4 (0.0-0.4) % Neut % (Auto) 92.0 H (45-73) % Lymph % (Auto) 2.7 L (20-40) % Armstrong % (Auto) 4.5 (2-11) % Eos % (Auto) 0.0 (0-4) % Baso % (Auto) 0.4 (0-2) % Lymph # (Auto) 0.3 L (1.2-4.9) X10*3/uL Armstrong # (Auto) 0.5 (0.1-1.2) X10*3/uL Eos # (Auto) 0.0 (0.0-0.4) X10*3/uL Baso # (Auto) 0.0 (0.0-0.2) X10*3/uL Abs Immat Gran (auto) 0.04 H (0.00-0.03) X10*3/uL Absolute Neuts (auto) 10.0 H (2.0-8.3) x10*3/uL Absolute Nucleated RBC 0.000 (0.0-0.012) X10*3/uL Nucleated RBC % (auto) 0.0 (0.0-0.2) /100WBC PT 20.5 H (9.9-13.0) SEC INR 1.8 H (0.9-1.1) Sodium (135-145) mmol/L Potassium (3.3-5.1) mmol/L Chloride (96-108) mmol/L Carbon Dioxide (22-29) mmol/L Anion Gap (12-20) BUN (9-16) mg/dL Creatinine (0.5-1.4) mg/dL Estim Creat Clear Calc Estimated GFR POC Glucose (60-115) mg/dL Random Glucose (60-115) mg/dL Lactic Acid (0.5-2.0) mmol/L Calcium (8.4-10.2) mg/dL Magnesium (1.6-2.6) mg/dL Total Bilirubin (0.0-1.0) mg/dL Direct Bilirubin (0.0-0.5) mg/dL AST (5-37) U/L ALT (0-40) U/L Alkaline Phosphatase (39-117) U/L Total Creatine Kinase (38-174) U/L Troponin I High Sens (<3.5-35.0) ng/L Total Protein (6.5-8.0) g/dL Albumin (3.5-5.0) g/dL Urine Color Urine Appearance Urine pH (5.0-8.0) Ur Specific [place] (1.005-1.025) Urine Protein (NEG-TRACE) MG/DL Urine Glucose (UA) (NEG) MG/DL Urine Ketones (NEG) MG/DL Urine Blood (NEG) Urine Nitrite (NEG) Ur Leukocyte Esterase (NEG) Urine RBC (0) /HPF Urine WBC (0-4) /HPF Ur Squamous Epith Cells /LPF Urine Bacteria /LPF Influenza Type A (PCR) NEGATIVE (Negative) Influenza Type B (PCR) NEGATIVE (Negative) RSV RNA Qual (PCR) NEGATIVE (Negative) SARS-CoV-2 RNA (RT-PCR) NEGATIVE (Negative) 09/15/21 09/15/21 09/15/21 Range/Units 13:46 16:56 17:11 WBC (4.8-10.8) X10*3/uL RBC (4.60-5.80) X10*6/uL Hgb (14.0-18.0) g/dl Hct (42.0-52.0) % MCV (80.0-98.0) fL MCH (27.0-33.0) pg MCHC (31.0-36.0) g/dl RDW (11.0-16.0) % Plt Count (160-400) X10*3/uL MPV (9.4-12.4) fL Immature Gran % (Auto) (0.0-0.4) % Neut % (Auto) (45-73) % Lymph % (Auto) (20-40) % Armstrong % (Auto) (2-11) % Eos % (Auto) (0-4) % Baso % (Auto) (0-2) % Lymph # (Auto) (1.2-4.9) X10*3/uL [place] # (Auto) (0.1-1.2) X10*3/uL Eos # (Auto) (0.0-0.4) X10*3/uL Baso # (Auto) (0.0-0.2) X10*3/uL Abs Immat Gran (auto) (0.00-0.03) X10*3/uL Absolute Neuts (auto) (2.0-8.3) x10*3/uL Absolute Nucleated RBC (0.0-0.012) X10*3/uL Nucleated RBC % (auto) (0.0-0.2) /100WBC PT (9.9-13.0) SEC INR (0.9-1.1) Sodium 135 (135-145) mmol/L Potassium 3.7 (3.3-5.1) mmol/L Chloride 100 (96-108) mmol/L Carbon Dioxide 24 (22-29) mmol/L Anion Gap 15 (12-20) BUN 27 H (9-16) mg/dL Creatinine 1.44 H (0.5-1.4) mg/dL Estim Creat Clear Calc 52.8 Estimated GFR 48 POC Glucose (60-115) mg/dL Random Glucose 219 H (60-115) mg/dL Lactic Acid (0.5-2.0) mmol/L Calcium 8.6 (8.4-10.2) mg/dL Magnesium 1.3 L* (1.6-2.6) mg/dL Total Bilirubin 2.1 H (0.0-1.0) mg/dL Direct Bilirubin 1.1 H (0.0-0.5) mg/dL AST 25 D (5-37) U/L ALT 18 (0-40) U/L Alkaline Phosphatase 170 H (39-117) U/L Total Creatine Kinase 75 (38-174) U/L Troponin I High Sens 67.2 H (<3.5-35.0) ng/L Total Protein 8.6 H (6.5-8.0) g/dL Albumin 3.5 (3.5-5.0) g/dL Urine Color YELLOW Urine Appearance CLEAR Urine pH 6.0 (5.0-8.0) Ur Specific [place] 1.025 (1.005-1.025) Urine Protein 3+ H (NEG-TRACE) MG/DL Urine Glucose (UA) NEG (NEG) MG/DL Urine Ketones 5 (NEG) MG/DL Urine Blood 1+ H (NEG) Urine Nitrite NEG (NEG) Ur Leukocyte Esterase NEG (NEG) Urine RBC 0-2 (0) /HPF Urine WBC 0 (0-4) /HPF Ur Squamous Epith Cells TRACE /LPF Urine Bacteria NONE /LPF Influenza Type A (PCR) (Negative) Influenza Type B (PCR) (Negative) RSV RNA Qual (PCR) (Negative) SARS-CoV-2 RNA (RT-PCR) (Negative) Imaging Data foot left x-ray: Attestation: I personally reviewed and interpreted this imaging study as follows: Radiologist's impression: [address] [address] XRay Report Signed Patient: Dom Sood MR#: [id number] : 1950 Acct:[id number] Age/Sex: 71 / M ADM Date: 09/15/21 Loc: HO.ED Attending Dr: Ordering Physician: Dorina Pineda NP Date of Service: 09/15/21 Procedure(s): XR foot LT 2V Accession Number(s): [id number] cc: Dorina Pineda NP~ EXAMINATION: XR FOOT, LEFT CLINICAL INFORMATION: Weak with? COMPARISON: None at this time. TECHNIQUE: AP, lateral, and oblique views of the left foot. FINDINGS: Patient is status post resection of the fifth metatarsal bone and proximal phalanx. Screws are seen within the metatarsal heads of the second and third digits with bony deformity. There is significant degenerative change involving the third metatarsophalangeal joint. There is fusion of the second and third proximal interphalangeal joints. There are degenerative changes with spurring seen involving the first through fourth tarsometatarsal joints. No acute fracture appreciated. XR/XR foot LT 2V IMPRESSION: Chronic abnormalities of the left foot without evidence of acute fracture or definite osteomyelitis. MRI may be of help in further evaluation for this. Ct chest/abdomen/pelvis: Attestation: I personally reviewed and interpreted this imaging study as follows: Radiologist's impression: FINDINGS: CT CHEST: Lungs: Rounded mass at the left lung base above the diaphragm measuring 2.6 cm.. This was previously biopsied on 02/14/2021. This was FDG negative on PET/CT study 02/19/2021. This has not changed in size since prior studies. Chronic fine subpleural reticular opacities at the anterior right middle lobe adjacent to the diaphragm at the lung base. No acute airways disease. Mediastinum: No significant lymphadenopathy. There is no pericardial effusion. There are calcifications of the aorta. No aneurysm of aorta. There are calcifications of the mitral valve annulus. Status post aortic valve replacement.? Pleura: Small volume of loculated pleural effusion at left lung base with pleural thickening unchanged since prior studies.? Axilla: No lymphadenopathy.? CT ABDOMEN AND PELVIS: Liver, Gallbladder and Biliary Tree: The liver is normal in size, shape, and attenuation. No focal hepatic lesion or biliary ductal dilatation is present. The gallbladder is unremarkable with no evidence of radiopaque gallstones, gallbladder wall thickening, or obvious pericholecystic inflammatory changes.? Pancreas: No acute change of the pancreas. No mass. No pancreatic duct dilatation.? Spleen: Spleen normal in size and contour. No focal lesion.? Adrenal Glands: Adrenal glands are normal in size. No focal mass.? Kidneys and Ureters: The kidneys are normal in size, shape, and attenuation. No hydronephrosis, hydroureter, or calculi seen. No perinephric stranding. 1 cm exophytic cyst lower pole right kidney stable since prior studies, 04/19/2019. Density measurement 2 Hounsfield units. No follow-up imaging is recommended for simple renal cyst.. Bladder: Unremarkable.? Gastrointestinal Tract: The small and large bowel are unremarkable. The appendix is nonvisualized Mesentery: No focal inflammation. No free fluid. No free air. Abdominal Wall: No significant hernia is appreciated.? Lymph Nodes: Normal. Vascular: There are vascular calcifications of the aorta and iliac arteries and also of the SMA. There is no aneurysm. Pelvic Viscera: Prostate measures 4.5 cm transverse.? Osseous Structures: Multilevel degenerative spondylosis of the spine. Status post median sternotomy. No suspicious osseous lesion. No fractures.? CT/CT abdomen pelvis wo con IMPRESSION: ? 1. No acute abnormality of the chest, abdomen or pelvis. 2. Stable previously biopsied mass in the lingula at the left lung base. 3. Persistent small loculated pleural fluid collection at the posterior left lung base. ? Ct head/cervical spine: Attestation: I personally reviewed and interpreted this imaging study as follows: Radiologist's impression: FINDINGS: CT HEAD: There is [id number] global volume loss with proportionate dilatation of the ventricles and cortical sulci. Miller to white matter differentiation is well preserved. There is no evidence of acute intracranial hemorrhage, midline shift, mass effect, acute territorial infarction or abnormal extra-axial fluid collection. Osseous canal rim is intact. No significant calvarial soft tissue swelling or hematoma is noted. The visualized paranasal sinuses and mastoid air cells are well-aerated. Middle ear cavities are well-aerated. Moderate calcific atherosclerosis cysts of the internal carotid and vertebral arteries. CT CERVICAL SPINE: Severe degenerative disc disease is noted at C5-C6 with erosive and sclerotic endplate marrow changes and severe narrowing of the intervertebral disc space. There is minimal posterior subluxation of C5 over C6. The vertebral body heights and alignment are otherwise maintained. Posterior elements are intact and in normal alignment. Atlantoaxial and atlantooccipital alignments are maintained. No evidence of tight central canal or neural foraminal stenosis. No evidence of prevertebral soft tissue swelling. The airway is patent. No focal thyroid nodule. Evaluation of the lung apices is somewhat limited due to motion artifacts; however, no acute abnormality is noted. CT/CT cervical spine wo con IMPRESSION: ? 1. No evidence of acute intracranial abnormality. Specifically there is no evidence of acute intracranial hemorrhage. ? 2. No evidence of acute fracture or traumatic subluxation in the cervical spine. Severe disc space narrowing with associated erosive and sclerotic endplate marrow changes at C5-C6 with minimal posterior subluxation of C5 over C6, findings are new/significantly increased compared to previous CT scan of 04/15/2019 and most probably represents severe degenerative changes. Another possibility would be sequela of infectious or inflammatory process, recommend clinical correlation for history of prior infectious/inflammatory process in the region. ECG Data Attestation: I personally reviewed and interpreted this ECG as follows: Interpretation: AFib with RVR with rate of 106, normal QT Discharge Plan Discharge Clinical Impression: Fever, Diabetic ulcer of foot associated with type 1 diabetes mellitus, limited to breakdown of skin, Hypomagnesemia Patient Disposition: Admitted As Inpatient
[2021-09-15 13:16] LABS: Glucose, Whole Blood 195 mg/dL (60-115)
[2021-09-15 13:55] LABS: MANUAL DIFF FLAG NO
[2021-09-15 13:56] LABS: Basophils Percent Auto 0.4 % (0-2); Hematocrit 37.1 % (42.0-52.0); Hemoglobin 11.9 g/dl (14.0-18.0); Imm Gran Abs Auto 0.04 X10*3/uL (0.00-0.03); Imm Gran Pct Auto 0.4 % (0.0-0.4); Lymphocytes Absolute Auto 0.3 X10*3/uL (1.2-4.9); Lymphocytes Percent Auto 2.7 % (20-40); Mean Corpuscular HGB Conc 32.1 g/dl (31.0-36.0); Mean Corpuscular Hemoglobin 26.9 pg (27.0-33.0); Mean Corpuscular Volume 83.9 fL (80.0-98.0); Mean Platelet Volume 10.9 fL (9.4-12.4); Monocytes Absolute Auto 0.5 X10*3/uL (0.1-1.2); Monocytes Percent Auto 4.5 % (2-11); Platelet Count 142 X10*3/uL (160-400); Red Blood Count 4.42 X10*6/uL (4.60-5.80); Red Cell Distribution Width 17.1 % (11.0-16.0); SCAN SMEAR FLAG 1; White Blood Count 10.9 X10*3/uL (4.8-10.8)
[2021-09-15 14:06] LABS: INTERNATIONAL NORM RATIO 1.8 (0.9-1.1); Prothrombin Time 20.5 SEC (9.9-13.0)
--- NOTE | 2021-09-15 14:11 | PHA.MEDREC ---
Pharmacy Consult ? Medication Reconciliation Pharmacy has completed the medication reconciliation. Pt's family member brought in list that matches claim history. Patient in [facility] with insurance and has not been taking jardiance and will start taking again september 2021.
[2021-09-15 14:21] LABS: Troponin-I High Sensitivity 60.8 ng/L (<3.5-35.0)
[2021-09-15 14:33] LABS: Influenza A PCR NEGATIVE (Negative); Influenza B PCR NEGATIVE (Negative); Resp Syncy Virus RNA Qual PCR NEGATIVE (Negative); SARS COV2 PCR INHOUSE NEGATIVE (Negative)
[2021-09-15 14:49] LABS: Alanine Aminotransferase 18 U/L (0-40); Albumin Level 3.5 g/dL (3.5-5.0); Alkaline Phosphatase 170 U/L (39-117); Anion Gap 15 (12-20); Aspartate Amino Transferase 25 U/L (5-37); Bilirubin Direct 1.1 mg/dL (0.0-0.5); Bilirubin Total 2.1 mg/dL (0.0-1.0); Blood Urea Nitrogen 27 mg/dL (9-16); Calcium 8.6 mg/dL (8.4-10.2); Carbon Dioxide 24 mmol/L (22-29); Chloride 100 mmol/L (96-108); Creatinine Clr Calc Pharmacy 52.8; Estimated Glomerular Filt Rate 48; Glucose Random 219 mg/dL (60-115); Magnesium 1.3 mg/dL (1.6-2.6); Potassium 3.7 mmol/L (3.3-5.1); Sodium 135 mmol/L (135-145); Total Protein 8.6 g/dL (6.5-8.0)
[2021-09-15] MEDS: Magnesium Sulfate/H2O 2 GM/50 ML PIGGYBACK IV (15:15)
[2021-09-15 17:17] LABS: Appearance Urine CLEAR; Color Urine YELLOW; Glucose Urine UA NEG (NEG); Leukocyte Esterase Urine NEG (NEG); Nitrite Urine NEG (NEG); Specific Gravity - Urine 1.025 (1.005-1.025); UACC Culture Trigger NO; Urine Blood 1+ (NEG); Urine Ketones 5 MG/DL (NEG); Urine Protein 3+ MG/DL (NEG-TRACE)
[2021-09-15 17:20] LABS: Troponin-I High Sensitivity 67.2 ng/L (<3.5-35.0)
[2021-09-15 17:39] LABS: RBC Urine 0-2 /HPF (0); Squamous Epithelial Cell Urine TRACE /LPF; WBC Urine 0 /HPF (0-4)
[2021-09-15 17:55] LABS: C Reactive Protein 9.42 mg/dL (< or = 0.50)
[2021-09-15] MEDS: cefTRIAXone sodium 1 GM in 0.9 % Sodium Chloride 50 ML IV (18:20)
[2021-09-15] MEDS: Acetaminophen 325 MG TABLET 650 MG PO (18:20)
[2021-09-15 18:34] LABS: Erythrocyte Sedimentation Rate 80 MM/HR (0-15)
[2021-09-15] MEDS: vancomycin HCL 1,500 MG in 0.9 % Sodium Chloride 500 ML 333.33 MG IV (19:07)
--- NOTE | 2021-09-15 19:33 | P.HPHOSP_ITS ---
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 Patient mentioned that about couple days ago we had a fall on the ice-slipped and fell over, denies any head strike or loss of consciousness. Mentions that he landed on his hips; denies any numbness tingling or focal weakness. Denies any back pain. Denies any neck pain. Mentioned that he has been having generalized weakness and subject to chills; denies any burning or frequency with urination. Denies any chest pain or palpitations. Denies any cough or sputum. Mentions he has chronic ulcer on his left foot. Review of all other systems is negative except mentioned above ER course: Per ER team patient was slightly drowsy on presentation; exam was essentially benign except for left foot ulcer; x-ray showed no acute findings; CT head and CT cervical spine showed no acute findings; patient had a fever of 101f; patient was given Tylenol and antibiotics; suspected infection from the left foot ulcer; admitted to the hospital for further management [facility] Medical History Chronic kidney disease, unspecified Coronary artery disease Endocarditis of aortic valve Essential hypertension Hemorrhage of gastrointestinal tract, unspecified History of hemodialysis HIT (heparin-induced thrombocytopenia) (~2018) Hyperlipidemia, unspecified Persistent atrial fibrillation Pulmonary nodule Type 2 diabetes mellitus with unspecified complications Family History Father Emphysema, unspecified Mother Cardiovascular disease Pertinent family history: as above Surgical History History of cardiac catheterization (~11/17/18) History of lung biopsy (~02/14/21) History of maze procedure Status post aortic valve replacement with bioprosthetic valve (~01/2019) Status post coronary artery bypass graft (~01/2019) Status post foot surgery Social History Alcohol intake: never Patient Tobacco Use Status: Former Tobacco user Use of substances other than those prescribed or required for medical reasons: No Advance Directives: Yes Advance Directives Information Provided: Yes Advance Directives on File: No Advance Directives Date on File: 06/27/20 Meds Allergies Allergy/AdvReac Type Severity Reaction Status Date / Time Heparin Analogues Allergy Severe HIT Verified 06/18/21 12:31 [HEPARIN ANALOGUES] acetaminophen [From TYLENOL] Allergy Unknown UNKNOWN Verified 06/18/21 12:31 insulin glargine Allergy Unknown Toujeo- Verified 06/18/21 12:31 diarrhea Sulfa (Sulfonamide Allergy Unknown HIVES Verified 06/18/21 12:31 Antibiotics) [SULFA (SULFONAMIDE ANTIBIOTICS)] Active Medications: Current Medications Apixaban (Apixaban 5 Mg Tablet) 5 mg PO BID [facility] Atorvastatin Calcium (Atorvastatin Calcium 80 Mg Tablet) 80 mg PO DAILY [facility] Dextrose (Dextrose 50 % 25 Gm/50 Ml Vial) 25 gm IVPUSH Q15M PRN; Protocol PRN Reason: per Hypoglycemia Standing Ord. Ezetimibe (Ezetimibe 10 Mg Tablet) 10 mg PO BEDTIME [facility] Glucose (Glucose Gel 15 Gm Gel..Gram.) 15 gm PO Q15M PRN; Protocol PRN Reason: per Hypoglycemia Standing Ord. Vancomycin HCl 1,000 mg/ (Sodium Chloride) 270 mls @ 270 mls/hr IV Q12H [facility] Piperacillin Sod/Tazobactam (Sod 3.375 gm/ Sodium Chloride) 50 mls @ 100 mls/hr IV Q6H [facility] Insulin Human Lispro (Insulin Lispro 100 Unit/Ml 3 Ml Vial) 0 unit SUBCUT QIDACHS [facility]; Protocol Levothyroxine Sodium (Levothyroxine Sodium 50 Mcg Tablet) 50 mcg PO Q2D@0630 [facility] Magnesium Oxide (Magnesium Oxide 400 Mg Tablet) 400 mg PO TID [facility] Metoprolol Tartrate (Metoprolol Tartrate 25 Mg Tablet) 25 mg PO BID [facility]; Protocol Omeprazole (Omeprazole 20 Mg Capsule.Dr) 20 mg PO BID@0630,1630 [facility] Pharmacy Consult (Consult Rx Perform Med Rec) 1 each MISCELLANE ONCE PRN PRN Reason: Consult order Pharmacy Consult (Consult Rx Vancomycin Dosing) 1 each MISCELLANE DAILY PRN PRN Reason: Consult order Pharmacy Consult (Consult Rx Vancomycin Dosing) 1 each MISCELLANE DAILY PRN PRN Reason: Consult order Senna (Sennosides 8.6 Mg Tablet) 17.2 mg PO BEDTIME PRN PRN Reason: Constipation Sodium Chloride (0.9 % Sodium Chloride Flush 3 Ml Syringe) 3 ml IVFLUSH QSHIFT [facility] Tamsulosin HCl (Tamsulosin Hcl 0.4 Mg Capsule) 0.4 mg PO DAILY [facility] Home Medications Medication Instructions Recorded Confirmed Last Taken Type atorvastatin 80 mg tablet 80 mg PO DAILY 07/18/20 09/15/21 Unknown History insulin glargine 100 unit/mL (3 22 unit SUBCUT DAILY 07/18/20 09/15/21 02/14/21 History mL) subcutaneous pen levothyroxine 50 mcg tablet 50 mcg PO Q2D@0630 07/18/20 09/15/21 Unknown History magnesium oxide 400 mg (241.3 mg 400 mg PO TID 07/18/20 09/15/21 Unknown History magnesium) tablet insulin lispro 100 unit/mL See Protocol SUBCUT QIDACHS 07/26/20 09/15/21 02/14/21 History subcutaneous pen (Humalog KwikPen (U-100) Insulin) tamsulosin 0.4 mg capsule (Flomax) 0.4 mg PO DAILY 07/26/20 09/15/21 Unknown History omeprazole 20 mg capsule,delayed 20 mg PO BID@0630,1630 01/09/21 09/15/21 Unknown History release blood sugar diagnostic #10 nelly 02/01/21 04/30/21 Unknown History blood-glucose meter #1 nelly 02/01/21 04/30/21 Unknown History pen needle, diabetic 32 gauge x #50 nelly 02/01/21 04/30/21 Unknown History ezetimibe 10 mg tablet (Zetia) 10 mg PO BEDTIME 06/18/21 09/15/21 Unknown History Physical Exam Vital Signs and Narrative: Vital Signs: Last Vital Signs Temp 101 F H 09/15/21 17:23 Pulse 85 09/15/21 19:07 Resp 18 09/15/21 19:07 BP 129/56 L 09/15/21 19:07 Pulse Ox 92 09/15/21 19:07 BMI result Body Mass Index 30.0 Gen: Appears be in no acute distress HEENT: NCAT, Moist mucosa. Pulmonary: Vesicular breath sounds, fair air entry CVS: Normal S1-S2 Abdomen: BS+, Soft, Nontender Extremities: Warm well perfused; Also noted on the dorsum of the left foot; erythematous; mildly swollen; bilateral legs are warm and tender, erythematous- concerning for cellulitis Neuro: Alert and awake. Results Labs CBC and Chem 7: 09/15/21 13:46 09/15/21 13:46 Labs: Laboratory Results - last 24 hr 09/15/21 09/15/21 09/15/21 12:58 13:45 13:45 MCV MCH MCHC RDW Plt Count MPV Immature Gran % (Auto) Neut % (Auto) Lymph % (Auto) Brooke % (Auto) Eos % (Auto) Baso % (Auto) Lymph # (Auto) Brooke # (Auto) Eos # (Auto) Baso # (Auto) Abs Immat Gran (auto) Absolute Neuts (auto) Absolute Nucleated RBC Nucleated RBC % (auto) ESR PT INR Anion Gap Estim Creat Clear Calc Estimated GFR POC Glucose 195 H Random Glucose Lactic Acid 2.0 Calcium Magnesium Total Bilirubin Direct Bilirubin AST ALT Alkaline Phosphatase Total Creatine Kinase Troponin I High Sens 60.8 H C-Reactive Protein Total Protein Albumin Urine Color Urine Appearance Urine pH Ur Specific Roll Urine Protein Urine Glucose (UA) Urine Ketones Urine Blood Urine Nitrite Ur Leukocyte Esterase Urine RBC Urine WBC Ur Squamous Epith Cells Urine Bacteria Influenza Type A (PCR) Influenza Type B (PCR) RSV RNA Qual (PCR) SARS-CoV-2 RNA (RT-PCR) 09/15/21 09/15/21 09/15/21 13:45 13:46 13:46 MCV 83.9 MCH 26.9 L MCHC 32.1 RDW 17.1 H Plt Count 142 L MPV 10.9 Immature Gran % (Auto) 0.4 Neut % (Auto) 92.0 H Lymph % (Auto) 2.7 L Brooke % (Auto) 4.5 Eos % (Auto) 0.0 Baso % (Auto) 0.4 Lymph # (Auto) 0.3 L Brooke # (Auto) 0.5 Eos # (Auto) 0.0 Baso # (Auto) 0.0 Abs Immat Gran (auto) 0.04 H Absolute Neuts (auto) 10.0 H Absolute Nucleated RBC 0.000 Nucleated RBC % (auto) 0.0 ESR PT 20.5 H INR 1.8 H Anion Gap Estim Creat Clear Calc Estimated GFR POC Glucose Random Glucose Lactic Acid Calcium Magnesium Total Bilirubin Direct Bilirubin AST ALT Alkaline Phosphatase Total Creatine Kinase Troponin I High Sens C-Reactive Protein Total Protein Albumin Urine Color Urine Appearance Urine pH Ur Specific Roll Urine Protein Urine Glucose (UA) Urine Ketones Urine Blood Urine Nitrite Ur Leukocyte Esterase Urine RBC Urine WBC Ur Squamous Epith Cells Urine Bacteria Influenza Type A (PCR) NEGATIVE Influenza Type B (PCR) NEGATIVE RSV RNA Qual (PCR) NEGATIVE SARS-CoV-2 RNA (RT-PCR) NEGATIVE 09/15/21 09/15/21 09/15/21 13:46 13:46 16:56 MCV MCH MCHC RDW Plt Count MPV Immature Gran % (Auto) Neut % (Auto) Lymph % (Auto) Brooke % (Auto) Eos % (Auto) Baso % (Auto) Lymph # (Auto) Brooke # (Auto) Eos # (Auto) Baso # (Auto) Abs Immat Gran (auto) Absolute Neuts (auto) Absolute Nucleated RBC Nucleated RBC % (auto) ESR 80 H PT INR Anion Gap 15 Estim Creat Clear Calc 52.8 Estimated GFR 48 POC Glucose Random Glucose 219 H Lactic Acid Calcium 8.6 Magnesium 1.3 L* Total Bilirubin 2.1 H Direct Bilirubin 1.1 H AST 25 D ALT 18 Alkaline Phosphatase 170 H Total Creatine Kinase 75 Troponin I High Sens 67.2 H C-Reactive Protein 9.42 H Total Protein 8.6 H Albumin 3.5 Urine Color Urine Appearance Urine pH Ur Specific Roll Urine Protein Urine Glucose (UA) Urine Ketones Urine Blood Urine Nitrite Ur Leukocyte Esterase Urine RBC Urine WBC Ur Squamous Epith Cells Urine Bacteria Influenza Type A (PCR) Influenza Type B (PCR) RSV RNA Qual (PCR) SARS-CoV-2 RNA (RT-PCR) 09/15/21 17:11 MCV MCH MCHC RDW Plt Count MPV Immature Gran % (Auto) Neut % (Auto) Lymph % (Auto) Brooke % (Auto) Eos % (Auto) Baso % (Auto) Lymph # (Auto) Brooke # (Auto) Eos # (Auto) Baso # (Auto) Abs Immat Gran (auto) Absolute Neuts (auto) Absolute Nucleated RBC Nucleated RBC % (auto) ESR PT INR Anion Gap Estim Creat Clear Calc Estimated GFR POC Glucose Random Glucose Lactic Acid Calcium Magnesium Total Bilirubin Direct Bilirubin AST ALT Alkaline Phosphatase Total Creatine Kinase Troponin I High Sens C-Reactive Protein Total Protein Albumin Urine Color YELLOW Urine Appearance CLEAR Urine pH 6.0 Ur Specific Roll 1.025 Urine Protein 3+ H Urine Glucose (UA) NEG Urine Ketones 5 Urine Blood 1+ H Urine Nitrite NEG Ur Leukocyte Esterase NEG Urine RBC 0-2 Urine WBC 0 Ur Squamous Epith Cells TRACE Urine Bacteria NONE Influenza Type A (PCR) Influenza Type B (PCR) RSV RNA Qual (PCR) SARS-CoV-2 RNA (RT-PCR) Imaging Radiologist's Impressions: Impressions Foot X-Ray 09/15/21 13:44 IMPRESSION: Chronic abnormalities of the left foot without evidence of acute fracture or definite osteomyelitis. MRI may be of help in further evaluation for this. Cervical Spine CT 09/15/21 14:36 IMPRESSION: 1. No evidence of acute intracranial abnormality. Specifically there is no evidence of acute intracranial hemorrhage. 2. No evidence of acute fracture or traumatic subluxation in the cervical spine. Severe disc space narrowing with associated erosive and sclerotic endplate marrow changes at C5-C6 with minimal posterior subluxation of C5 over C6, findings are new/significantly increased compared to previous CT scan of 04/15/2019 and most probably represents severe degenerative changes. Another possibility would be sequela of infectious or inflammatory process, recommend clinical correlation for history of prior infectious/inflammatory process in the region. Head CT 09/15/21 14:36 IMPRESSION: 1. No evidence of acute intracranial abnormality. Specifically there is no evidence of acute intracranial hemorrhage. 2. No evidence of acute fracture or traumatic subluxation in the cervical spine. Severe disc space narrowing with associated erosive and sclerotic endplate marrow changes at C5-C6 with minimal posterior subluxation of C5 over C6, findings are new/significantly increased compared to previous CT scan of 04/15/2019 and most probably represents severe degenerative changes. Another possibility would be sequela of infectious or inflammatory process, recommend clinical correlation for history of prior infectious/inflammatory process in the region. Abdomen/Pelvis CT 09/15/21 14:42 IMPRESSION: 1. No acute abnormality of the chest, abdomen or pelvis. 2. Stable previously biopsied mass in the lingula at the left lung base. 3. Persistent small loculated pleural fluid collection at the posterior left lung base. Chest CT 09/15/21 14:42 IMPRESSION: 1. No acute abnormality of the chest, abdomen or pelvis. 2. Stable previously biopsied mass in the lingula at the left lung base. 3. Persistent small loculated pleural fluid collection at the posterior left lung base. 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 Denies any head strike or loss of consciousness. CT head showed no acute intracranial process; CT cervical spine showed no acute fracture, noted chronic cervical spine degenerative changes Fall precautions; PT/OT eventually CT chest abdomen pelvis showed no acute findings Severe sepsis: Bacteremia: Blood cultures growing GPC in all bottles. Source suspected from left foot diabetic ulce/bilateral leg cellulitis. Urinalysis negative. CT chest showed no pneumonia. Patient blood pressure dropped to 70s over 40s--> given normal saline bolus and continued maintenance. Blood pressure slightly improved. Will monitor blood pressure grossly and if drops will consider pressors/ICU c/w broad-spectrum antibiotics vanc and Zosyn. Id consult. Diabetic foot ulcer: Wound consult. X-ray foot showed chronic findings; no x- ray evidence of osteomyelitis. Recommended to consider MRI. Hypomagnesemia: Repleted Indeterminate troponins: Patient denies any chest pain. Likely demand. Echocardiogram. Cardiology consult. History of CKD: Patient's baseline creatinine 1.3-1.4. Currently at baseline. Diabetes: Insulin sliding scale. Hypothyroidism: Continue home levothyroxine Hypertension: Hold home metoprolol, lisinopril for now. Hyperlipidemia: Continue home statin Atrial fibrillation: Rate controlled. Continue home Eliquis. DVT prophylaxis: Patient on Eliquis Code status: Full code Quality Stroke Does the patient have a stroke diagnosis?: No VTE Prior VTE?: No VTE Risk Level:: Medical - moderate - high VTE Device Contraindication: Treatment Not Indicated VTE Drug Contraindication: N/A - Med Ordered
--- NOTE | 2021-09-15 19:46 | PHA.PROG ---
Admission Date/Time: September 15, 2021 19:28 Indication: infection of unknown origin, pt has had osteo and endocarditis in the past Weight in k kg Adjusted body weight in K.8 kg [place] body weight in K kg Obesity Dosing Indication % IBW: Serum Creatinine - Last 168 Hours 09/15/21 13:46 Creatinine 1.44 H Estimated CrCl and GFR - Last 168 Hours 09/15/21 13:46 Estim Creat Clear Calc 52.8 Estimated GFR 48 Vancomycin Loading Dose: 1500 mg Current Vancomycin Dosing Regimen:1500 mg q24h Vancomycin Monitoring using AUC goal of 400 - 600 range with trough as surrogate marker: 553 Date and Time for next Vancomycin Level to be drawn:09/17 @1700 Pharmacist Comments on Vancomycin Plan: 1500 mg q24, higher AUC since pt has had serious infections in the past. Will monitor renal function and do an early (before 3rd dose level) Vancomycin dosing will take advantage of [employer] as a clinical decision support tool that uses Bayesian modeling to calculate individual patient's pharmacokinetic parameters and forecast the patient's drug concentration time course with the target goal AUC 24 range of 400 - 600 mg/L/hr.
--- NOTE | 2021-09-15 19:51 | PC.NURSE ---
hospitalist notified of elevated temp, per md pack with icepacks.
[2021-09-15] MEDS: Ezetimibe 10 MG TABLET PO (22:06)
[2021-09-15] MEDS: Apixaban 5 MG TABLET PO (22:06)
[2021-09-15] MEDS: Magnesium Oxide 400 MG TABLET PO (22:06)
[2021-09-15] MEDS: Metoprolol Tartrate 25 MG TABLET PO (22:06)
[2021-09-15 22:13] LABS: Glucose, Whole Blood 191 mg/dL (60-115)
[2021-09-16] VITALS (31 sets, daily range): BP systolic 78–157; BP diastolic 42–70; PULSE 47–92; RESP 16–39; TEMP 36.5–40; O2SAT 88–100; BMI 29.5
--- NOTE | 2021-09-16 00:34 | PC.NURSE ---
verbal order tgiven for temp sense ross due to worseing conditon.
[2021-09-16 00:44] LABS: Hematocrit 32.2 % (42.0-52.0); Hemoglobin 10.1 g/dl (14.0-18.0); Mean Corpuscular HGB Conc 31.4 g/dl (31.0-36.0); Mean Corpuscular Hemoglobin 26.8 pg (27.0-33.0); Mean Corpuscular Volume 85.4 fL (80.0-98.0); Mean Platelet Volume 10.6 fL (9.4-12.4); Platelet Count 109 X10*3/uL (160-400); Red Blood Count 3.77 X10*6/uL (4.60-5.80); Red Cell Distribution Width 16.9 % (11.0-16.0); White Blood Count 12.2 X10*3/uL (4.8-10.8)
[2021-09-16] MEDS: Piperacillin Sodium/Tazobactam 3.375 GM in 0.9 % Sodium Chloride 50 ML IV ×4 (00:50→18:28)
[2021-09-16] MEDS: 0.9 % Sodium Chloride 1,000 ML 999 ML IV ×2 (00:50→02:02)
[2021-09-16] MEDS: 0.9 % Sodium Chloride 1,000 ML 200 ML IVCONT (00:54)
[2021-09-16 00:56] LABS: Lactic Acid 1.8 mmol/L (0.5-2.0)
[2021-09-16] MEDS: 0.9 % Sodium Chloride Flush 3 ML SYRINGE IVFLUSH ×3 (01:05→15:09)
[2021-09-16 01:07] LABS: Anion Gap 11 (12-20); Blood Urea Nitrogen 36 mg/dL (9-16); Calcium 7.3 mg/dL (8.4-10.2); Carbon Dioxide 22 mmol/L (22-29); Chloride 107 mmol/L (96-108); Creatinine Clr Calc Pharmacy 46.9; Estimated Glomerular Filt Rate 42; Glucose Random 192 mg/dL (60-115); Potassium 3.2 mmol/L (3.3-5.1); Sodium 137 mmol/L (135-145)
[2021-09-16 01:09] LABS: Band Neutrophils Percent 16 % (3-5); Basophils Abs Manual 0.2 X10*3/uL (0.0-0.2); Basophils Percent Manual 2 % (0-2); Lymphocytes Absolute Manual 0.2 X10*3/uL (1.2-4.9); Lymphocytes Percent Manual 2 % (20-40); Monocytes Absolute Manual 0.5 X10*3/uL (0.1-1.2); Monocytes Percent Manual 4 % (2-11); Neutrophils Absolute Manual 11.2 X10*3/uL (2.0-8.3); Neutrophils Percent Manual 76 % (45-73)
[2021-09-16 01:10] LABS: Burr Cells 2+ (3-5) /OIF; Ovalocytes 1+ (5-14) /OIF; Tear Drop Cells 1+ (0-2) /OIF
[2021-09-16 01:11] LABS: Large Platelet PRESENT; Platelet Estimate SLIGHTLY DECREASED (NORMAL); Platelet Morphology Comment NOTED; Toxic Vacuolation PRESENT
[2021-09-16 01:24] LABS: RBC Morphology NOTED
--- NOTE | 2021-09-16 01:59 | W.PM.CCHP ---
Procedures Date of Service Date of Service: 09/16/21 Central Line Placement Right IJ: Central Line Comments: venous access for pressors Consent for Procedure: Emergent-no informed consent obtained Time out performed: Yes Sterile Technique Used: Yes Patient placed on monitor/pulse ox: Yes prep: mask, gown and gloves Central line prep: Chlorhexidine scrub Local anesthesia used: lidocaine 1% Amount of anesthesia used (ml): 3 Ultrasound used for placement: Yes Central line lumen inserted: triple Post procedure: sutured in place, good blood return, all ports aspirated, flushed, capped and sterile dressing applied Post procedure x-ray: tip of catheter in good position Patient tolerated procedure: well and no complications Complications: none
[2021-09-16] MEDS: Lactated Ringers 1,000 ML 200 ML IVCONT ×2 (02:01→07:13)
--- NOTE | 2021-09-16 02:01 | W.PM.CCCN ---
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 Pt also had a fall 3 days ago, down 3 stairs covered in black ice, fell on buttocks. Pt was admitted to this hospital early last evening for severe sepsis with bacteremia. Likely source is a foot ulcer. WBC 12.2, Hgb 10.1, Hct 32.2, platelets 109, K 3.2, BUN 36, Cr 1.62, Ca 7.3, mag 1.3 replaced but not rechecked yet, total bili 2.1, direct bili 1.1, alk phos 170, trop 60.8, 67.2, CRP 9.42, UA neg for infection, foot x-ray showed no gas, rec MRI. Rios CT all neg for acute issues. BC x2 grew out GPC. Pt rec'd sepsis bolus and ceftriaxone in ED, was started on vanco and zosyn and IVF. A few hours after admission, he became hypotensive, not responsive to fluid boluses, requiring pressors. Pt will be transferred to the ICU for TLC, pressors, monitoring and care. Pt will remain in the ED as nursing staff not available to transfer pt to ICU at this time, likely in the morning. Review of Systems Review of Systems: Yes all other systems are reviewed and are negative [facility] Past Medical History Medical History Chronic kidney disease, unspecified Coronary artery disease Endocarditis of aortic valve Essential hypertension Hemorrhage of gastrointestinal tract, unspecified History of hemodialysis HIT (heparin-induced thrombocytopenia) (~2018) Hyperlipidemia, unspecified Persistent atrial fibrillation Pulmonary nodule Type 2 diabetes mellitus with unspecified complications Functional capacity: independent ambulation Family History Family History Father Emphysema, unspecified Mother Cardiovascular disease Surgical History Surgical History History of cardiac catheterization (~11/17/18) History of lung biopsy (~02/14/21) History of maze procedure Status post aortic valve replacement with bioprosthetic valve (~01/2019) Status post coronary artery bypass graft (~01/2019) Status post foot surgery Social History Social History Alcohol intake: never Patient Tobacco Use Status: Former Tobacco user Use of substances other than those prescribed or required for medical reasons: No Advance Directives: Yes Advance Directives Information Provided: Yes Advance Directives on File: No Advance Directives Date on File: 06/27/20 Meds Allergies Allergy/AdvReac Type Severity Reaction Status Date / Time Heparin Analogues Allergy Severe HIT Verified 06/18/21 12:31 [HEPARIN ANALOGUES] acetaminophen [From TYLENOL] Allergy Unknown UNKNOWN Verified 06/18/21 12:31 insulin glargine Allergy Unknown Toujeo- Verified 06/18/21 12:31 diarrhea Sulfa (Sulfonamide Allergy Unknown HIVES Verified 06/18/21 12:31 Antibiotics) [SULFA (SULFONAMIDE ANTIBIOTICS)] Active Medications: Current Medications Apixaban (Apixaban 5 Mg Tablet) 5 mg PO BID [facility] Last Admin: 09/15/21 22:06 Dose: 5 mg Documented by: Atorvastatin Calcium (Atorvastatin Calcium 80 Mg Tablet) 80 mg PO BEDTIME [facility] Dextrose (Dextrose 50 % 25 Gm/50 Ml Vial) 25 gm IVPUSH Q15M PRN; Protocol PRN Reason: per Hypoglycemia Standing Ord. Ezetimibe (Ezetimibe 10 Mg Tablet) 10 mg PO BEDTIME [facility] Last Admin: 09/15/21 22:06 Dose: 10 mg Documented by: Glucose (Glucose Gel 15 Gm Gel..Gram.) 15 gm PO Q15M PRN; Protocol PRN Reason: per Hypoglycemia Standing Ord. Vancomycin HCl 1,500 mg/ (Sodium Chloride) 500 mls @ 333.333 mls/hr IV Q24H [facility] Piperacillin Sod/Tazobactam (Sod 3.375 gm/ Sodium Chloride) 50 mls @ 100 mls/hr IV Q6H [facility] Last Infusion: 09/16/21 01:06 Dose: Infused Documented by: Norepinephrine Bitartrate (Levophed) 8 mg in 250 mls @ 0 mls/hr IVCONT .Q0M [facility]; Protocol Last Titration: 09/16/21 01:28 Dose: 0.1 mcg/kg/min, 17.81 mls/hr Documented by: Lactated Ringer's (Lr) 1,000 mls @ 200 mls/hr IVCONT .Q5H [facility] Sodium Chloride (Ns) 1,000 mls @ 999 mls/hr IV .Q1H1M [facility] Stop: 09/16/21 03:00 Insulin Human Lispro (Insulin Lispro 100 Unit/Ml 3 Ml Vial) 0 unit SUBCUT QIDACHS [facility]; Protocol Last Admin: 09/15/21 22:07 Dose: Not Given Documented by: Levothyroxine Sodium (Levothyroxine Sodium 50 Mcg Tablet) 50 mcg PO Q2D@0630 [facility] Magnesium Oxide (Magnesium Oxide 400 Mg Tablet) 400 mg PO TID [facility] Last Admin: 09/15/21 22:06 Dose: 400 mg Documented by: Metoprolol Tartrate (Metoprolol Tartrate 25 Mg Tablet) 25 mg PO BID [facility]; Protocol Last Admin: 09/15/21 22:06 Dose: 25 mg Documented by: Omeprazole (Omeprazole 20 Mg Capsule.) 20 mg PO BID@0630,1630 [facility] Pharmacy Consult (Consult Rx Perform Med Rec) 1 each MISCELLANE ONCE PRN PRN Reason: Consult order Pharmacy Consult (Consult Rx Vancomycin Dosing) 1 each MISCELLANE DAILY PRN PRN Reason: Consult order Pharmacy Consult (Consult Rx Vancomycin Dosing) 1 each MISCELLANE DAILY PRN PRN Reason: Consult order Senna (Sennosides 8.6 Mg Tablet) 17.2 mg PO BEDTIME PRN PRN Reason: Constipation Sodium Chloride (0.9 % Sodium Chloride Flush 3 Ml Syringe) 3 ml IVFLUSH QSHIFT [facility] Last Admin: 09/16/21 01:05 Dose: 3 ml Documented by: Tamsulosin HCl (Tamsulosin Hcl 0.4 Mg Capsule) 0.4 mg PO DAILY [facility] Home Medications Medication Instructions Recorded Confirmed Last Taken Type atorvastatin 80 mg tablet 80 mg PO DAILY 07/18/20 09/15/21 Unknown History insulin glargine 100 unit/mL (3 22 unit SUBCUT DAILY 07/18/20 09/15/21 02/14/21 History mL) subcutaneous pen levothyroxine 50 mcg tablet 50 mcg PO Q2D@0630 07/18/20 09/15/21 Unknown History magnesium oxide 400 mg (241.3 mg 400 mg PO TID 07/18/20 09/15/21 Unknown History magnesium) tablet insulin lispro 100 unit/mL See Protocol SUBCUT QIDACHS 07/26/20 09/15/21 02/14/21 History subcutaneous pen (Humalog KwikPen (U-100) Insulin) tamsulosin 0.4 mg capsule (Flomax) 0.4 mg PO DAILY 07/26/20 09/15/21 Unknown History omeprazole 20 mg capsule,delayed 20 mg PO BID@0630,1630 01/09/21 09/15/21 Unknown History release blood sugar diagnostic #10 ea 02/01/21 04/30/21 Unknown History blood-glucose meter #1 ea 02/01/21 04/30/21 Unknown History pen needle, diabetic 32 gauge x #50 ea 02/01/21 04/30/21 Unknown History ezetimibe 10 mg tablet (Zetia) 10 mg PO BEDTIME 06/18/21 09/15/21 Unknown History Physical Exam Vital Signs: Vital Signs: Last Vital Signs Temp 102.7 F H 09/16/21 01:42 Pulse 68 09/16/21 01:42 Resp 39 H 09/16/21 01:42 BP 105/52 L 09/16/21 01:42 Pulse Ox 100 09/16/21 01:42 BMI result Body Mass Index 29.5 Const: General: cooperative, comfortable, no acute distress, well developed and tired appearing Orientation/consciousness: patient oriented x3 Limitations: no limitations HENMT: Head: Yes normal to inspection Eyes: General: appearance normal, both eyes and all related structures Neck: Neck: Yes normal visual inspection and Yes full ROM Resp: Effort & Inspection: normal respiratory effort and able to speak in complete sentences Auscultation: clear to auscultation bilaterally Cardio: Rate: regular rate Rhythm: regular rhythm Heart sounds: normal S1 and S2 GI: Inspection: Yes normal to inspection Palpation (GI): Soft to palpation and nontender Skin: General skin exam: no rashes or lesions noted, ecchymosis (thoracic left side ) and pallor (face) Neuro: General: patient oriented x3 Extrem: Other: Cool, well perfused. Dorsum of the left foot has 1.5cm ulcer, erythematous, swollen. Bilateral legs dry, chronic venous changes, not TTP. 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 General: Yes venous stasis dermatitis Results Labs CBC & Chem 7: 09/16/21 00:37 09/16/21 00:37 Labs: Short CBC 09/15/21 09/16/21 Range/Units 13:46 00:37 WBC 10.9 H 12.2 H (4.8-10.8) X10*3/uL Hgb 11.9 L 10.1 L (14.0-18.0) g/dl Hct 37.1 L 32.2 L (42.0-52.0) % Plt Count 142 L 109 L (160-400) X10*3/uL BMP 09/15/21 09/16/21 13:46 00:37 Sodium 135 137 Potassium 3.7 3.2 L Chloride 100 107 Carbon Dioxide 24 22 BUN 27 H 36 H Creatinine 1.44 H 1.62 H Calcium 8.6 7.3 L D Cardiac Enzymes 09/15/21 Range/Units 13:46 Total Creatine Kinase 75 (38-174) U/L Liver Function 09/15/21 Range/Units 13:46 Total Bilirubin 2.1 H (0.0-1.0) mg/dL Direct Bilirubin 1.1 H (0.0-0.5) mg/dL AST 25 D (5-37) U/L ALT 18 (0-40) U/L Alkaline Phosphatase 170 H (39-117) U/L Albumin 3.5 (3.5-5.0) g/dL Urine 09/15/21 Range/Units 17:11 Urine Color YELLOW Urine Appearance CLEAR Urine pH 6.0 (5.0-8.0) Ur Specific [place] 1.025 (1.005-1.025) Urine Protein 3+ H (NEG-TRACE) MG/DL Urine Glucose (UA) NEG (NEG) MG/DL Microbiology Microbiology Results: Microbiology 09/15/21 13:45 Blood - Venous Blood Culture - Preliminary Prelim: GPC Gram Stain only 09/15/21 14:11 Blood - Venous Blood Culture - Preliminary Prelim: GPC Gram Stain only Assessment and Plan (1) Severe sepsis: Status: Acute Blood cultures growing GPC in all bottles. Source suspected from left foot diabetic ulcer.? UA negative.? CT chest showed no pneumonia. Titrate levophed. c/w broad-spectrum antibiotics vanc and Zosyn.? Id consult. (2) Diabetic ulcer of foot associated with type 1 diabetes mellitus, limited to breakdown of skin: Status: Acute ISS and poc's. Wound consult.? X-ray foot showed chronic findings; no x-ray evidence of osteomyelitis, no gas.? Recommended to consider MRI (3) Fall (on) (from) other stairs and steps, initial encounter: Status: Acute Mechanical in nature.? Denies any head strike or loss of consciousness.? CT head showed no acute intracranial process; CT cervical spine showed no acute fracture, noted chronic cervical spine degenerative changes Fall precautions; PT/OT eventually CT chest abdomen pelvis showed no acute findings (4) Chronic kidney disease, unspecified: Qualifiers: Chronic kidney disease stage: unspecified stage Qualified Code(s): N18.9 - Chronic kidney disease, unspecified Status: Acute Patient's baseline creatinine 1.3-1.4.? SCr sightly bumped at 1.62, continue to monitor and avoid nephrotoxins. (5) Persistent atrial fibrillation: Status: Acute Rate controlled.? Continue home Eliquis. (6) Hypomagnesemia: Status: Acute Repleted, continue to monitor (7) Hyperlipidemia, unspecified: Qualifiers: Hyperlipidemia type: unspecified Qualified Code(s): E78.5 - Hyperlipidemia, unspecified Status: Acute Continue home statin (8) Hypothyroidism: Status: Acute Continue levothyroxine Indeterminate troponins: Patient denies any chest pain.? Likely demand.? Echocardiogram.? Cardiology consult. DVT prophylaxis:? Patient on Eliquis Code status: Full code
[2021-09-16] MEDS: Acetaminophen 325 MG TABLET 975 MG PO (02:03)
[2021-09-16 07:03] LABS: MANUAL DIFF FLAG NO
[2021-09-16 07:09] LABS: Basophils Absolute Auto 0.1 X10*3/uL (0.0-0.2); Basophils Percent Auto 0.4 % (0-2); Eosinophils Absolute Auto 0.1 X10*3/uL (0.0-0.4); Eosinophils Percent Auto 0.6 % (0-4); Hematocrit 34.3 % (42.0-52.0); Hemoglobin 10.7 g/dl (14.0-18.0); Lymphocytes Absolute Auto 0.6 X10*3/uL (1.2-4.9); Lymphocytes Percent Auto 2.8 % (20-40); Mean Corpuscular HGB Conc 31.2 g/dl (31.0-36.0); Mean Corpuscular Hemoglobin 26.7 pg (27.0-33.0); Mean Corpuscular Volume 85.5 fL (80.0-98.0); Mean Platelet Volume 11.1 fL (9.4-12.4); Monocytes Absolute Auto 1.5 X10*3/uL (0.1-1.2); Monocytes Percent Auto 7.2 % (2-11); Platelet Count 122 X10*3/uL (160-400); Red Blood Count 4.01 X10*6/uL (4.60-5.80); Red Cell Distribution Width 17.2 % (11.0-16.0); White Blood Count 20.4 X10*3/uL (4.8-10.8)
[2021-09-16 07:43] LABS: Glucose, Whole Blood 208 mg/dL (60-115)
[2021-09-16 07:53] LABS: Alanine Aminotransferase 17 U/L (0-40); Albumin Level 2.7 g/dL (3.5-5.0); Alkaline Phosphatase 114 U/L (39-117); Anion Gap 14 (12-20); Aspartate Amino Transferase 30 U/L (5-37); Bilirubin Direct 1.2 mg/dL (0.0-0.5); Blood Urea Nitrogen 37 mg/dL (9-16); C Reactive Protein 15.94 mg/dL (< or = 0.50); Calcium 7.4 mg/dL (8.4-10.2); Carbon Dioxide 19 mmol/L (22-29); Chloride 107 mmol/L (96-108); Creatinine Clr Calc Pharmacy 47.4; Estimated Glomerular Filt Rate 43; Glucose Random 235 mg/dL (60-115); Magnesium 1.5 mg/dL (1.6-2.6); Phosphorus 3.1 mg/dL (2.7-4.5); Potassium 3.6 mmol/L (3.3-5.1); Sodium 136 mmol/L (135-145); Total Protein 6.6 g/dL (6.5-8.0)
--- NOTE | 2021-09-16 09:17 | MHC.CDI.CONC ---
CDI Concurrent Query Documentation Clarification: PHYSICIAN'S DOCUMENTATION REQUEST Date of Query: 09/16/21 0917 Patient Name: Dom Sood Admit Date: 09/15/21 Dear Doctor, A review of the medical record indicates additional documentation may be needed. Please review below and update the documentation accordingly. Risk Factors/Clinical Indicators/Treatments ICU Transfer: Severe sepsis likely source left foot. Hypotensive, not responsive to fluid boluses, requiring pressors. BP 79/45 Temp 102.7 RR 39 WBC 20.4 HR 68 IV Vancomycin and Zosyn. Blood culture grew BPC in bottle. Please clarify which of the following is the most likely etiology of the above symptoms and treatment rendered: Severe Sepsis: Septic shock Cardiogenic shock Shock, unknown type Hypotension - indicate type/etiology, such as idiopathic, neurogenic or orthostatic, septic etc Other (please specify) Unable to determine Use of terms such as suspected, likely, concern for, or probable (associated with a specific diagnosis that is being evaluated, monitored, or treated as if it exists) are acceptable and can be coded in the inpatient setting, when documented at the time of discharge. Thank you, Rosa Maria Becker [facility], CDIS Extension: [phone] Please use your independent medical judgment in providing your response. THIS QUERY IS PART OF THE PERMANENT MEDICAL RECORD Provider Response: Other (Septic shock) Other Diagnosis: Septic shock
[2021-09-16 09:49] LABS: Glucose, Whole Blood 191 mg/dL (60-115)
[2021-09-16] MEDS: Apixaban 5 MG TABLET PO ×2 (10:08→21:10)
[2021-09-16] MEDS: Tamsulosin HCL 0.4 MG CAPSULE PO (10:09)
[2021-09-16] MEDS: Magnesium Oxide 400 MG TABLET PO ×3 (10:09→21:10)
[2021-09-16] MEDS: Insulin Lispro 100 UNIT/ML 3 ML VIAL SUBCUT ×2 (10:09→13:14)
[2021-09-16] MEDS: Albumin Human 25 % 100 ML IV ×2 (10:10→11:23)
[2021-09-16] MEDS: Magnesium Sulfate/H2O 2 GM/50 ML PIGGYBACK IV (10:17)
[2021-09-16] MEDS: DOPamine HCL/D5W 400 MG/250 ML PLAST..BAG 17.49 MG IVCONT (10:18)
--- NOTE | 2021-09-16 11:00 | CA_ITS ---
Transthoracic Echocardiogram Patient (Last, First, Middle): Dom Sood, Gender: Male Date of : 1950 Age: 71 Procedure Date: 09/16/2021 Procedure Type: Transthoracic Echocardiogram Location: ICU Height: 177.8 cm Weight: 92.99 kg BSA: 2.11 m2 Heart Rate: bpm BP: 120 / 49 mmHg [employer]: MICHAEL Referring MD: Jasbir Garrett MD Symptoms: ?endocarditis Study Quality: Fair Conclusions: - Normal left ventricular size and systolic function. - There is a flattened septum in systole and diastole consistent with right ventricular pressure and volume overload. - Moderately increased right ventricular cavity size. There is severely decreased right ventricular systolic function. - Severe biatrial enlargement. - A bioprosthetic aortic valve is present. The prosthetic aortic valve appears to be functioning normally. - There is severe mitral annular calcification. - There is mild to moderate tricuspid valve regurgitation. Significantly elevated right atrial pressure. There is no evidence of pulmonary hypertension. - PA pressures are lower than before which can be due to underestimation but could also mean worsening of the RV function. - No obvious vegetation noted. Findings Left Ventricle Normal left ventricular size and systolic function. There is mildly increased left ventricular wall thickness. The visually estimated ejection fraction is between 55-60%. There is no evidence of regional wall motion abnormalities. There is a flattened septum in systole and diastole consistent with right ventricular pressure and volume overload. Diastolic function is indeterminate on the basis of available data. Right Ventricle Moderately increased right ventricular cavity size. There is severely decreased right ventricular systolic function. Atria Severe biatrial enlargement. Aortic Valve A bioprosthetic aortic valve is present. The prosthetic aortic valve appears to be functioning normally. There is no aortic valve stenosis. There is no aortic valve regurgitation. Mitral Valve There is severe mitral annular calcification. There is trace mitral valve regurgitation. There is no mitral valve stenosis. Pulmonic Valve The pulmonic valve was not well visualized. Tricuspid Valve Normal tricuspid valve structure. There is mild to moderate tricuspid valve regurgitation. Significantly elevated right atrial pressure. There is no evidence of pulmonary hypertension. Great Vessels The visualized portions of the pulmonary artery and branches are normal. Venous The inferior vena cava is dilated and does not collapse with inspiration. Pericardium/Pleural There is no evidence of pericardial effusion. Prior Study Comparison Changes noted compared to prior study dated: 05/03/2021. PASP lower than before. Recommendations, Care & Conclusions Consider a DEREK if clinically appropriate. Measurements 2D Linear Measurements IVSd: 1.08 0.6-0.9/0.6-1.0 cm LVIDd: 5.11 3.9-5.3/4.2-5.9 cm LVIDd Index: 2.42 2.4-3.2/2.2-3.1 cm/m2 LVIDs: 3.87 2.0-3.6 cm LVPWd: 1.26 0.7-1.1 cm LA Diam: 5.10 2.7-3.8/3.0-4.0 cm LAIDs Index: 2.42 1.5-2.3 cm/m2 LV Mass: 291.26 67-162/88-224 g LV Mass Index: 138.04 43-95/49-115 g/m2 LVOT Diam: 2.10 3.0+(-)1.3 cm Aortic Valve AoV Pk Rojelio: 2.01 AoV Mn Rojelio: 1.58 AoV VTI: 0.41 AoV Pk Grad: 16.00 Aov Mn Grad: 11.00 SEJAL Cont.VTI: 2.15 LVOT LVOT Pk Rojelio: 1.13 LVOT Mn Rojelio: 0.79 LVOT VTI: 0.25 LVOT Pk Grad: 5.00 LVOT Mn Grad: 3.00 LVOT Diam: 2.10 LVOT Area: 3.46 Right Ventricle TAPSE (mm): 8.65 Tricuspid Valve TR Pk Rojelio: 2.25 TR Pk Grad: 20.00 RA Press: 15.00 RVSP: 35.00 Updated in Other Vendor System with Status of Final Elvin Mancilla MD electronically signed on 09/16/2021 2:34:46 PM with status of Final
--- NOTE | 2021-09-16 12:04 | MHC.CM.PN ---
pt is in the icu, he is somnolent and very difficult to arouse for initial dc planning interview . a call was placed to pt's and message was left requesting a return call. from chart review patient is from home where he lives c his . svcs and supports in the home have not been made apparent at this time. pt would likely benefit from at least vna svcs at dc if he doesn't already have this service if dc'd home vs. str pending a PT eval. no refs have been made at this time d/t lack of information around pt's baseline functioning and supports . cm to cont. to follow.
--- NOTE | 2021-09-16 12:45 | MHC.CM.PN ---
pt is in the icu, pt reports that he is independent in his care. he does live c his and she can help him c any needs he may have including a ride home at [place]. pt is active c [facility] wound clinic and part of the dc plan is to continue there post hospitalization. pt does not use any AD c ambulation and has no other svcs at home. he still drives a car. the patient denies the need for vna at [place]. dc plan at this time is home c cont. visits to [facility] wound clinic. cm to cont.to follow.
[2021-09-16 12:49] LABS: Glucose, Whole Blood 307 mg/dL (60-115)
--- NOTE | 2021-09-16 16:31 | PM.CNCAR ---
History of Present Illness History of Present Illness Date of Service: 09/16/21 Requesting physician: Jasbir Garrett Chief complaint: ?endocarditis Narrative: 71-year-old gentleman with background history of aortic valve replacement and CABG, paroxysmal atrial fibrillation on anticoagulation, hypertension and previous history of aortic valve endocarditis who is presenting with weakness fatigue. He has been noticed to have Gram-positive cocci bacteremia. He is in the intensive care unit in this point. He is saying on antibiotics is feeling better. He was not feeling well for few days and had fevers and chills along with poor appetite. He previously had endocarditis and was given prolonged antibiotic course. Echocardiography was reviewed which did not show any obvious signs of vegetation on the aortic or mitral valve. Tricuspid valve also appears normal and pulmonic valve is not well visualized. He has known severe RV dysfunction. [facility] Past Medical History Medical History Chronic kidney disease, unspecified Coronary artery disease Endocarditis of aortic valve Essential hypertension Hemorrhage of gastrointestinal tract, unspecified History of hemodialysis HIT (heparin-induced thrombocytopenia) (~2018) Hyperlipidemia, unspecified Persistent atrial fibrillation Pulmonary nodule Type 2 diabetes mellitus with unspecified complications Functional capacity: independent ambulation Family History Family History Father Emphysema, unspecified Mother Cardiovascular disease Surgical History Surgical History History of cardiac catheterization (~11/17/18) History of lung biopsy (~02/14/21) History of maze procedure Status post aortic valve replacement with bioprosthetic valve (~01/2019) Status post coronary artery bypass graft (~01/2019) Status post foot surgery Social History Social History Household Members: Spouse Housing: House Do you presently have visiting nurse or other home services: No Alcohol intake: never Patient Tobacco Use Status: Former Tobacco user Use of substances other than those prescribed or required for medical reasons: No Currently Displaying Signs/Symptoms of Drug Intoxication Withdrawal: No Have you been hit, kicked, punched, or otherwise hurt by someone within the past year? If so, by whom?: No Do you feel safe in your current relationship?: Yes Is there a partner from a previous relationship who is making you feel unsafe now?: No Are you made to feel afraid or neglected: No Advance Directives: Yes Advance Directives Information Provided: Yes Advance Directives on File: No Advance Directives Date on File: 06/27/20 Do you have thoughts of harming others: None Do you have a plan to hurt others: No Plan Recently lost weight without trying: No Eating poorly because of decreased appetite: No Nutrition Risks: No Nutritional Risk service: No Current occupational status: retired Meds Allergies Allergy/AdvReac Type Severity Reaction Status Date / Time Heparin Analogues Allergy Severe HIT Verified 06/18/21 12:31 [HEPARIN ANALOGUES] acetaminophen [From TYLENOL] Allergy Unknown UNKNOWN Verified 06/18/21 12:31 insulin glargine Allergy Unknown Toujeo- Verified 06/18/21 12:31 diarrhea Sulfa (Sulfonamide Allergy Unknown HIVES Verified 06/18/21 12:31 Antibiotics) [SULFA (SULFONAMIDE ANTIBIOTICS)] Active Medications: Current Medications Apixaban (Apixaban 5 Mg Tablet) 5 mg PO BID FRANCIS Last Admin: 09/16/21 10:08 Dose: 5 mg Documented by: Atorvastatin Calcium (Atorvastatin Calcium 80 Mg Tablet) 80 mg PO BEDTIME FRANCIS Dextrose (Dextrose 50 % 25 Gm/50 Ml Vial) 25 gm IVPUSH Q15M PRN; Protocol PRN Reason: per Hypoglycemia Standing Ord. Ezetimibe (Ezetimibe 10 Mg Tablet) 10 mg PO BEDTIME FRANCIS Last Admin: 09/15/21 22:06 Dose: 10 mg Documented by: Glucose (Glucose Gel 15 Gm Gel..Gram.) 15 gm PO Q15M PRN; Protocol PRN Reason: per Hypoglycemia Standing Ord. Piperacillin Sod/Tazobactam (Sod 3.375 gm/ Sodium Chloride) 50 mls @ 100 mls/hr IV Q6H FRANCIS Last Infusion: 09/16/21 13:45 Dose: Infused Documented by: Norepinephrine Bitartrate (Levophed) 8 mg in 250 mls @ 0 mls/hr IVCONT .Q0M FRANCIS; Protocol Last Titration: 09/16/21 10:18 Dose: Infused Documented by: Dopamine HCl/Dextrose () 400 mg in 250 mls @ 0 mls/hr IVCONT .Q0M FRANCIS; Protocol Last Admin: 09/16/21 10:18 Dose: 5 mcg/kg/min, 17.49 mls/hr Documented by: Vancomycin HCl 1,250 mg/ (Sodium Chloride) 250 mls @ 166.667 mls/hr IV Q24H [facility] Insulin Human Lispro (Insulin Lispro 100 Unit/Ml 3 Ml Vial) 0 unit SUBCUT QIDACHS [facility]; Protocol Last Admin: 09/16/21 13:14 Dose: 8 unit Documented by: Levothyroxine Sodium (Levothyroxine Sodium 50 Mcg Tablet) 50 mcg PO Q2D@0630 [facility] Magnesium Oxide (Magnesium Oxide 400 Mg Tablet) 400 mg PO TID [facility] Last Admin: 09/16/21 15:08 Dose: 400 mg Documented by: Omeprazole (Omeprazole 20 Mg Capsule.) 20 mg PO BID@0630,1630 [facility] Last Admin: 09/16/21 06:42 Dose: Not Given Documented by: Pharmacy Consult (Consult Rx Perform Med Rec) 1 each MISCELLANE ONCE PRN PRN Reason: Consult order Pharmacy Consult (Consult Rx Vancomycin Dosing) 1 each MISCELLANE DAILY PRN PRN Reason: Consult order Senna (Sennosides 8.6 Mg Tablet) 17.2 mg PO BEDTIME PRN PRN Reason: Constipation Sodium Chloride (0.9 % Sodium Chloride Flush 3 Ml Syringe) 3 ml IVFLUSH QSHIFT [facility] Last Admin: 09/16/21 15:09 Dose: 3 ml Documented by: Tamsulosin HCl (Tamsulosin Hcl 0.4 Mg Capsule) 0.4 mg PO DAILY [facility] Last Admin: 09/16/21 10:09 Dose: 0.4 mg Documented by: Home Medications Medication Instructions Recorded Confirmed Last Taken Type atorvastatin 80 mg tablet 80 mg PO DAILY 07/18/20 09/15/21 Unknown History insulin glargine 100 unit/mL (3 22 unit SUBCUT DAILY 07/18/20 09/15/21 02/14/21 History mL) subcutaneous pen levothyroxine 50 mcg tablet 50 mcg PO Q2D@0630 07/18/20 09/15/21 Unknown History magnesium oxide 400 mg (241.3 mg 400 mg PO TID 07/18/20 09/15/21 Unknown History magnesium) tablet insulin lispro 100 unit/mL See Protocol SUBCUT QIDACHS 1109/15/21 02/14/21 History subcutaneous pen (Humalog KwikPen (U-100) Insulin) tamsulosin 0.4 mg capsule (Flomax) 0.4 mg PO DAILY 07/26/20 09/15/21 Unknown History omeprazole 20 mg capsule,delayed 20 mg PO BID@0630,1630 01/09/21 09/15/21 Unknown History release blood sugar diagnostic #10 ea 02/01/21 04/30/21 Unknown History blood-glucose meter #1 ea 02/01/21 04/30/21 Unknown History pen needle, diabetic 32 gauge x #50 ea 02/01/21 04/30/21 Unknown History ezetimibe 10 mg tablet (Zetia) 10 mg PO BEDTIME 06/18/21 09/15/21 Unknown History Physical Exam Vital Signs: Vital Signs: Last Vital Signs Temp 97.7 F 09/16/21 16:00 Pulse 70 09/16/21 16:00 Resp 20 09/16/21 16:00 BP 122/53 L 09/16/21 16:00 Pulse Ox 93 09/16/21 16:00 BMI result Body Mass Index 29.5 GENERAL APPEARANCE: in no acute distress, pleasant. NECK: no carotid bruit, no jugular venous distention. SKIN: Left foot dressed. Right lower extremity there is toe amputation previously. HEART: no murmurs, irregular rate and rhythm. LUNGS: clear to auscultation bilaterally. ABDOMEN: soft, nontender. EXTREMITIES: no edema. PERIPHERAL PULSES: equal. NEUROLOGIC: No gross deficits, AAO x3 Objective Labs and Meds Result diagrams: 09/16/21 06:52 09/16/21 06:52 Lab results: Laboratory Results - last 24 hr 09/15/21 09/15/21 09/15/21 13:46 13:46 16:56 WBC RBC Hgb Hct MCV MCH MCHC RDW Plt Count MPV Immature Gran % (Auto) Neut % (Auto) Lymph % (Auto) [place] % (Auto) Eos % (Auto) Baso % (Auto) Lymph # (Auto) [place] # (Auto) Eos # (Auto) Baso # (Auto) Abs Immat Gran (auto) Absolute Neuts (auto) Absolute Nucleated RBC Nucleated RBC % (auto) Neutrophils % (Manual) Band Neutrophils % Lymphocytes % (Manual) Monocytes % (Manual) Basophils % (Manual) Abs Neuts (Manual) Lymphocytes # (Manual) Monocytes # (Manual) Basophils # (Manual) Toxic Vacuolation Platelet Estimate Large Platelets Plt Morphology Comment RBC Morphology Tear Drop Cells Ovalocytes [place] Cells ESR 80 H Sodium Potassium Chloride Carbon Dioxide Anion Gap BUN Creatinine Estim Creat Clear Calc Estimated GFR POC Glucose Random Glucose Lactic Acid Calcium Phosphorus Magnesium Total Bilirubin Direct Bilirubin AST ALT Alkaline Phosphatase Troponin I High Sens 67.2 H C-Reactive Protein 9.42 H Total Protein Albumin Urine Color Urine Appearance Urine pH Ur Specific [place] Urine Protein Urine Glucose (UA) Urine Ketones Urine Blood Urine Nitrite Ur Leukocyte Esterase Urine RBC Urine WBC Ur Squamous Epith Cells Urine Bacteria 09/15/21 09/15/21 09/16/21 17:11 22:05 00:37 WBC RBC Hgb Hct MCV MCH MCHC RDW Plt Count MPV Immature Gran % (Auto) Neut % (Auto) Lymph % (Auto) [place] % (Auto) Eos % (Auto) Baso % (Auto) Lymph # (Auto) [place] # (Auto) Eos # (Auto) Baso # (Auto) Abs Immat Gran (auto) Absolute Neuts (auto) Absolute Nucleated RBC Nucleated RBC % (auto) Neutrophils % (Manual) Band Neutrophils % Lymphocytes % (Manual) Monocytes % (Manual) Basophils % (Manual) Abs Neuts (Manual) Lymphocytes # (Manual) Monocytes # (Manual) Basophils # (Manual) Toxic Vacuolation Platelet Estimate Large Platelets Plt Morphology Comment RBC Morphology Tear Drop Cells Ovalocytes Christiane Cells ESR Sodium 137 Potassium 3.2 L Chloride 107 Carbon Dioxide 22 Anion Gap 11 L BUN 36 H Creatinine 1.62 H Estim Creat Clear Calc 46.9 Estimated GFR 42 POC Glucose 191 H Random Glucose 192 H Lactic Acid Calcium 7.3 L D Phosphorus Magnesium Total Bilirubin Direct Bilirubin AST ALT Alkaline Phosphatase Troponin I High Sens C-Reactive Protein Total Protein Albumin Urine Color YELLOW Urine Appearance CLEAR Urine pH 6.0 Ur Specific [place] 1.025 Urine Protein 3+ H Urine Glucose (UA) NEG Urine Ketones 5 Urine Blood 1+ H Urine Nitrite NEG Ur Leukocyte Esterase NEG Urine RBC 0-2 Urine WBC 0 Ur Squamous Epith Cells TRACE Urine Bacteria NONE 09/16/21 09/16/21 09/16/21 00:37 00:37 06:52 WBC 12.2 H RBC 3.77 L Hgb 10.1 L Hct 32.2 L MCV 85.4 MCH 26.8 L MCHC 31.4 RDW 16.9 H Plt Count 109 L MPV 10.6 Immature Gran % (Auto) Cancelled Neut % (Auto) Cancelled Lymph % (Auto) Cancelled [place] % (Auto) Cancelled Eos % (Auto) Cancelled Baso % (Auto) Cancelled Lymph # (Auto) Cancelled [place] # (Auto) Cancelled Eos # (Auto) Cancelled Baso # (Auto) Cancelled Abs Immat Gran (auto) Cancelled Absolute Neuts (auto) Cancelled Absolute Nucleated RBC 0.000 Nucleated RBC % (auto) 0.0 Neutrophils % (Manual) 76 H Band Neutrophils % 16 H Lymphocytes % (Manual) 2 L Monocytes % (Manual) 4 Basophils % (Manual) 2 Abs Neuts (Manual) 11.2 H Lymphocytes # (Manual) 0.2 L Monocytes # (Manual) 0.5 Basophils # (Manual) 0.2 Toxic Vacuolation PRESENT Platelet Estimate SLIGHTLY DECREASED Large Platelets PRESENT Plt Morphology Comment NOTED RBC Morphology NOTED Tear Drop Cells 1+ (0-2) Ovalocytes 1+ (5-14) Christiane Cells 2+ (3-5) ESR Sodium 136 Potassium 3.6 Chloride 107 Carbon Dioxide 19 L Anion Gap 14 BUN 37 H Creatinine 1.59 H Estim Creat Clear Calc 47.4 Estimated GFR 43 POC Glucose Random Glucose 235 H Lactic Acid 1.8 Calcium 7.4 L Phosphorus 3.1 Magnesium 1.5 L Total Bilirubin 2.0 H Direct Bilirubin 1.2 H AST 30 ALT 17 Alkaline Phosphatase 114 D Troponin I High Sens C-Reactive Protein 15.94 H Total Protein 6.6 D Albumin 2.7 L D Urine Color Urine Appearance Urine pH Ur Specific [place] Urine Protein Urine Glucose (UA) Urine Ketones Urine Blood Urine Nitrite Ur Leukocyte Esterase Urine RBC Urine WBC Ur Squamous Epith Cells Urine Bacteria 09/16/21 09/16/21 09/16/21 06:52 07:33 09:45 WBC 20.4 H RBC 4.01 L Hgb 10.7 L Hct 34.3 L MCV 85.5 MCH 26.7 L MCHC 31.2 RDW 17.2 H Plt Count 122 L MPV 11.1 Immature Gran % (Auto) 1.0 H Neut % (Auto) 88.0 H Lymph % (Auto) 2.8 L [place] % (Auto) 7.2 Eos % (Auto) 0.6 Baso % (Auto) 0.4 Lymph # (Auto) 0.6 L [place] # (Auto) 1.5 H Eos # (Auto) 0.1 Baso # (Auto) 0.1 Abs Immat Gran (auto) 0.20 H Absolute Neuts (auto) 18.0 H Absolute Nucleated RBC 0.000 Nucleated RBC % (auto) 0.0 Neutrophils % (Manual) Band Neutrophils % Lymphocytes % (Manual) Monocytes % (Manual) Basophils % (Manual) Abs Neuts (Manual) Lymphocytes # (Manual) Monocytes # (Manual) Basophils # (Manual) Toxic Vacuolation Platelet Estimate Large Platelets Plt Morphology Comment RBC Morphology Tear Drop Cells Ovalocytes Christiane Cells ESR Sodium Potassium Chloride Carbon Dioxide Anion Gap BUN Creatinine Estim Creat Clear Calc Estimated GFR POC Glucose 208 H 191 H Random Glucose Lactic Acid Calcium Phosphorus Magnesium Total Bilirubin Direct Bilirubin AST ALT Alkaline Phosphatase Troponin I High Sens C-Reactive Protein Total Protein Albumin Urine Color Urine Appearance Urine pH Ur Specific [place] Urine Protein Urine Glucose (UA) Urine Ketones Urine Blood Urine Nitrite Ur Leukocyte Esterase Urine RBC Urine WBC Ur Squamous Epith Cells Urine Bacteria 09/16/21 12:46 WBC RBC Hgb Hct MCV MCH MCHC RDW Plt Count MPV Immature Gran % (Auto) Neut % (Auto) Lymph % (Auto) [place] % (Auto) Eos % (Auto) Baso % (Auto) Lymph # (Auto) [place] # (Auto) Eos # (Auto) Baso # (Auto) Abs Immat Gran (auto) Absolute Neuts (auto) Absolute Nucleated RBC Nucleated RBC % (auto) Neutrophils % (Manual) Band Neutrophils % Lymphocytes % (Manual) Monocytes % (Manual) Basophils % (Manual) Abs Neuts (Manual) Lymphocytes # (Manual) Monocytes # (Manual) Basophils # (Manual) Toxic Vacuolation Platelet Estimate Large Platelets Plt Morphology Comment RBC Morphology Tear Drop Cells Ovalocytes [place] Cells ESR Sodium Potassium Chloride Carbon Dioxide Anion Gap BUN Creatinine Estim Creat Clear Calc Estimated GFR POC Glucose 307 H Random Glucose Lactic Acid Calcium Phosphorus Magnesium Total Bilirubin Direct Bilirubin AST ALT Alkaline Phosphatase Troponin I High Sens C-Reactive Protein Total Protein Albumin Urine Color Urine Appearance Urine pH Ur Specific [place] Urine Protein Urine Glucose (UA) Urine Ketones Urine Blood Urine Nitrite Ur Leukocyte Esterase Urine RBC Urine WBC Ur Squamous Epith Cells Urine Bacteria Imaging Radiologist's impression: Impressions Cervical Spine CT 09/15/21 14:36 IMPRESSION: 1. No evidence of acute intracranial abnormality. Specifically there is no evidence of acute intracranial hemorrhage. 2. No evidence of acute fracture or traumatic subluxation in the cervical spine. Severe disc space narrowing with associated erosive and sclerotic endplate marrow changes at C5-C6 with minimal posterior subluxation of C5 over C6, findings are new/significantly increased compared to previous CT scan of 04/15/2019 and most probably represents severe degenerative changes. Another possibility would be sequela of infectious or inflammatory process, recommend clinical correlation for history of prior infectious/inflammatory process in the region. Head CT 09/15/21 14:36 IMPRESSION: 1. No evidence of acute intracranial abnormality. Specifically there is no evidence of acute intracranial hemorrhage. 2. No evidence of acute fracture or traumatic subluxation in the cervical spine. Severe disc space narrowing with associated erosive and sclerotic endplate marrow changes at C5-C6 with minimal posterior subluxation of C5 over C6, findings are new/significantly increased compared to previous CT scan of 04/15/2019 and most probably represents severe degenerative changes. Another possibility would be sequela of infectious or inflammatory process, recommend clinical correlation for history of prior infectious/inflammatory process in the region. Chest X-Ray 09/16/21 02:03 IMPRESSION: Right internal jugular central venous catheter terminates near the cavoatrial junction. No pneumothorax. Assessment and Plan (1) Atrial fibrillation: Status: Acute (2) Severe sepsis: Status: Acute 71-year-old gentleman with CABG/AVR and h/o AV endocarditis presenting with sepsis and GPC bactermia. TTE did not show any vegetation. We will wait for blood cultures and confirm if there is persistent bacteremia. He has severe RV dysfunction and is not a surgical candidate and his treatment is likely medical at this stage unless we discover a surgical emergency. Thank you for allowing me to participate in the care of your patient. Please feel free to contact me if you have any questions. Procedures Date of Service Date of Service: 09/16/21
[2021-09-16] MEDS: Omeprazole 20 MG CAPSULE.DR PO (16:37)
[2021-09-16 16:38] LABS: Glucose, Whole Blood 134 mg/dL (60-115)
[2021-09-16] MEDS: vancomycin HCL 1,250 MG in 0.9 % Sodium Chloride 250 ML 166.67 MG IV (19:49)
[2021-09-16 21:10] LABS: Glucose, Whole Blood 122 mg/dL (60-115)
[2021-09-16] MEDS: Atorvastatin Calcium 80 MG TABLET PO (21:10)
[2021-09-16] MEDS: Ezetimibe 10 MG TABLET PO (21:10)
[2021-09-16] MEDS: DOPamine HCL/D5W 400 MG/250 ML PLAST..BAG 24.49 MG IVCONT (22:52)
[2021-09-17] VITALS (26 sets, daily range): BP systolic 75–137; BP diastolic 42–70; PULSE 58–90; RESP 16–30; TEMP 36.4; O2SAT 88–99; BMI 30.2
--- NOTE | 2021-09-17 | ECG_ITS ---
Test Reason : st elevation Blood Pressure : / mmHG Vent. Rate : 083 BPM Atrial Rate : 117 BPM P-R Int : 000 ms QRS Dur : 122 ms QT Int : 410 ms P-R-T Axes : 000 -35 034 degrees QTc Int : 481 ms Atrial fibrillation Left axis deviation Minimal voltage criteria for LVH, may be normal variant ( Abran product ) Inferior infarct , age undetermined Abnormal ECG When compared to the previous EKG of No significant changes seen Referred By: Austin Chavarria Electronically Signed By:Elvin Mancilla
[2021-09-17] MEDS: Piperacillin Sodium/Tazobactam 3.375 GM in 0.9 % Sodium Chloride 50 ML IV ×4 (00:58→17:58)
[2021-09-17 05:31] LABS: VBG Base Excess -2.1 mmol/L; VBG HCO3 22 mmol/L (22-26); VBG pCO2 36 mmHg; VBG pH 7.39 (7.32-7.43); VBG pO2 47 mmHg
[2021-09-17 05:41] LABS: MANUAL DIFF FLAG NO
[2021-09-17 05:44] LABS: Venous Blood Gas Refer to POC result
[2021-09-17 05:47] LABS: Basophils Percent Auto 0.3 % (0-2); Eosinophils Absolute Auto 0.1 X10*3/uL (0.0-0.4); Eosinophils Percent Auto 1.9 % (0-4); Hematocrit 28.1 % (42.0-52.0); Hemoglobin 8.8 g/dl (14.0-18.0); Imm Gran Abs Auto 0.02 X10*3/uL (0.00-0.03); Imm Gran Pct Auto 0.3 % (0.0-0.4); Lymphocytes Absolute Auto 0.3 X10*3/uL (1.2-4.9); Lymphocytes Percent Auto 4.7 % (20-40); Mean Corpuscular HGB Conc 31.3 g/dl (31.0-36.0); Mean Corpuscular Volume 86.2 fL (80.0-98.0); Mean Platelet Volume 11.4 fL (9.4-12.4); Monocytes Absolute Auto 0.6 X10*3/uL (0.1-1.2); Monocytes Percent Auto 8.9 % (2-11); Neutrophils Absolute Auto 5.2 x10*3/uL (2.0-8.3); Neutrophils Percent Auto 83.9 % (45-73); Red Blood Count 3.26 X10*6/uL (4.60-5.80); Red Cell Distribution Width 17.2 % (11.0-16.0); White Blood Count 6.2 X10*3/uL (4.8-10.8)
[2021-09-17 06:11] LABS: Anion Gap 9 (12-20); Blood Urea Nitrogen 34 mg/dL (9-16); Carbon Dioxide 24 mmol/L (22-29); Chloride 105 mmol/L (96-108); Potassium 3.2 mmol/L (3.3-5.1); Sodium 135 mmol/L (135-145)
[2021-09-17 06:12] LABS: Calcium 7.9 mg/dL (8.4-10.2); Creatinine Clr Calc Pharmacy 61.5; Estimated Glomerular Filt Rate 57; Glucose Random 179 mg/dL (60-115); Phosphorus 2.5 mg/dL (2.7-4.5)
[2021-09-17] MEDS: Levothyroxine Sodium 50 MCG TABLET PO (06:30)
[2021-09-17] MEDS: Omeprazole 20 MG CAPSULE.DR PO ×2 (06:30→17:55)
[2021-09-17 06:34] LABS: Platelet Count 80 X10*3/uL (160-400)
[2021-09-17 08:19] LABS: Glucose, Whole Blood 171 mg/dL (60-115)
[2021-09-17] MEDS: DOPamine HCL/D5W 400 MG/250 ML PLAST..BAG 17.49 MG IVCONT (09:58)
[2021-09-17] MEDS: Sodium,Potassium Phosphates POWD.PACK 2 PACKET PO ×2 (09:58→22:17)
[2021-09-17] MEDS: Potassium Chloride/H20 40 MEQ/100 ML PIGGYBACK 50 MEQ IV (09:58)
[2021-09-17] MEDS: Magnesium Oxide 400 MG TABLET PO ×3 (09:59→21:18)
[2021-09-17] MEDS: Tamsulosin HCL 0.4 MG CAPSULE PO (09:59)
[2021-09-17] MEDS: Insulin Lispro 100 UNIT/ML 3 ML VIAL SUBCUT ×4 (09:59→21:19)
[2021-09-17] MEDS: 0.9 % Sodium Chloride Flush 3 ML SYRINGE IVFLUSH ×2 (09:59→17:58)
[2021-09-17] MEDS: Apixaban 5 MG TABLET PO ×2 (09:59→21:19)
--- NOTE | 2021-09-17 11:18 | PM.PNCARD ---
Subjective Subjective Date of Service: 09/17/21 Interval history: Feeling better. On low dose dopamine. Physical Exam Vital Signs: Last Vital Signs Temp 97.7 F 09/16/21 16:00 Pulse 61 09/17/21 11:00 Resp 28 H 09/17/21 11:00 BP 127/47 L 09/17/21 11:00 Pulse Ox 99 09/17/21 11:00 BMI result Body Mass Index 30.2 GENERAL APPEARANCE: in no acute distress, pleasant. NECK: no carotid bruit, no jugular venous distention. SKIN:? Left foot dressed.? Right lower extremity there is toe amputation previously. HEART: no murmurs, irregular rate and rhythm. LUNGS: clear to auscultation bilaterally. ABDOMEN: soft, nontender. EXTREMITIES: no edema. PERIPHERAL PULSES: equal. NEUROLOGIC: No gross deficits, AAO x3 Objective Labs and Meds Result diagrams: 09/17/21 05:21 09/17/21 05:21 Lab results: Laboratory Results - last 24 hr 09/16/21 09/16/21 09/16/21 12:46 16:34 21:02 WBC RBC Hgb Hct MCV MCH MCHC RDW Plt Count MPV Immature Gran % (Auto) Neut % (Auto) Lymph % (Auto) [place] % (Auto) Eos % (Auto) Baso % (Auto) Lymph # (Auto) [place] # (Auto) Eos # (Auto) Baso # (Auto) Abs Immat Gran (auto) Absolute Neuts (auto) Absolute Nucleated RBC Nucleated RBC % (auto) VBG pH VBG pCO2 VBG pO2 VBG HCO3 VBG O2 Saturation VBG Base Excess Sodium Potassium Chloride Carbon Dioxide Anion Gap BUN Creatinine Estim Creat Clear Calc Estimated GFR POC Glucose 307 H 134 H 122 H Random Glucose Calcium Phosphorus Magnesium Albumin 09/17/21 09/17/21 09/17/21 05:21 05:21 05:25 WBC 6.2 RBC 3.26 L Hgb 8.8 L Hct 28.1 L MCV 86.2 MCH 27.0 MCHC 31.3 RDW 17.2 H Plt Count 80 L D MPV 11.4 Immature Gran % (Auto) 0.3 Neut % (Auto) 83.9 H Lymph % (Auto) 4.7 L [place] % (Auto) 8.9 Eos % (Auto) 1.9 Baso % (Auto) 0.3 Lymph # (Auto) 0.3 L [place] # (Auto) 0.6 Eos # (Auto) 0.1 Baso # (Auto) 0.0 Abs Immat Gran (auto) 0.02 Absolute Neuts (auto) 5.2 Absolute Nucleated RBC 0.000 Nucleated RBC % (auto) 0.0 VBG pH 7.39 VBG pCO2 36 VBG pO2 47 VBG HCO3 22 VBG O2 Saturation 71.0 VBG Base Excess -2.1 Sodium 135 Potassium 3.2 L Chloride 105 Carbon Dioxide 24 Anion Gap 9 L BUN 34 H Creatinine 1.24 Estim Creat Clear Calc 61.5 Estimated GFR 57 POC Glucose Random Glucose 179 H Calcium 7.9 L D Phosphorus 2.5 L Magnesium 2.0 Albumin 3.0 L 09/17/21 08:15 WBC RBC Hgb Hct MCV MCH MCHC RDW Plt Count MPV Immature Gran % (Auto) Neut % (Auto) Lymph % (Auto) [place] % (Auto) Eos % (Auto) Baso % (Auto) Lymph # (Auto) [place] # (Auto) Eos # (Auto) Baso # (Auto) Abs Immat Gran (auto) Absolute Neuts (auto) Absolute Nucleated RBC Nucleated RBC % (auto) VBG pH VBG pCO2 VBG pO2 VBG HCO3 VBG O2 Saturation VBG Base Excess Sodium Potassium Chloride Carbon Dioxide Anion Gap BUN Creatinine Estim Creat Clear Calc Estimated GFR POC Glucose 171 H Random Glucose Calcium Phosphorus Magnesium Albumin Progress Note: A&P Assessment and plan (1) Atrial fibrillation: Status: Acute (2) Severe sepsis: Status: Acute Assessment and Plan: 71-year-old gentleman with history of CABG/AVR and prosthetic valve endocarditis in the past who is presenting for weakness and bacteremia. He is growing group C Streptococcus in the blood. On IV antibiotics. Repeat cultures are sent and are pending. Echocardiography has not shown any obvious vegetation. Wait for the blood cultures to come back. If he has persistent bacteremia then we may need to do DEREK. Hopefully his cultures clear up. Platelet counts are dropping with sepsis. Also anemic. His hemoglobin needs to be monitor closely. If any concerns arise then anticoagulation may need to be health. Also if his platelet count is below 50,000 I think we have to be careful with Paul. Thank you for allowing me to participate in the care of your patient. Please feel free to contact me if you have any questions. Fall Risk Details Current Medications: Current Medications Apixaban (Apixaban 5 Mg Tablet) 5 mg PO BID [facility] Last Admin: 09/17/21 09:59 Dose: 5 mg Documented by: Atorvastatin Calcium (Atorvastatin Calcium 80 Mg Tablet) 80 mg PO BEDTIME FRANCIS Last Admin: 09/16/21 21:10 Dose: 80 mg Documented by: Dextrose (Dextrose 50 % 25 Gm/50 Ml Vial) 25 gm IVPUSH Q15M PRN; Protocol PRN Reason: per Hypoglycemia Standing Ord. Ezetimibe (Ezetimibe 10 Mg Tablet) 10 mg PO BEDTIME FRANCIS Last Admin: 09/16/21 21:10 Dose: 10 mg Documented by: Glucose (Glucose Gel 15 Gm Gel..Gram.) 15 gm PO Q15M PRN; Protocol PRN Reason: per Hypoglycemia Standing Ord. Piperacillin Sod/Tazobactam (Sod 3.375 gm/ Sodium Chloride) 50 mls @ 100 mls/hr IV Q6H [facility] Last Infusion: 09/17/21 07:43 Dose: Infused Documented by: Norepinephrine Bitartrate (Levophed) 8 mg in 250 mls @ 0 mls/hr IVCONT .Q0M FRANCIS; Protocol Last Titration: 09/16/21 10:18 Dose: Infused Documented by: Dopamine HCl/Dextrose () 400 mg in 250 mls @ 0 mls/hr IVCONT .Q0M FRANCIS; Protocol Last Admin: 09/17/21 09:58 Dose: 5 mcg/kg/min, 17.49 mls/hr Documented by: Vancomycin HCl 1,250 mg/ (Sodium Chloride) 250 mls @ 166.667 mls/hr IV Q24H [facility] Last Infusion: 09/16/21 21:28 Dose: Infused Documented by: Insulin Human Lispro (Insulin Lispro 100 Unit/Ml 3 Ml Vial) 0 unit SUBCUT QIDACHS [facility]; Protocol Last Admin: 09/17/21 09:59 Dose: 2 unit Documented by: Levothyroxine Sodium (Levothyroxine Sodium 50 Mcg Tablet) 50 mcg PO Q2D@0630 [facility] Last Admin: 09/17/21 06:30 Dose: 50 mcg Documented by: Magnesium Oxide (Magnesium Oxide 400 Mg Tablet) 400 mg PO TID [facility] Last Admin: 09/17/21 09:59 Dose: 400 mg Documented by: Omeprazole (Omeprazole 20 Mg Capsule.) 20 mg PO BID@0630,1630 [facility] Last Admin: 09/17/21 06:30 Dose: 20 mg Documented by: Pharmacy Consult (Consult Rx Perform Med Rec) 1 each MISCELLANE ONCE PRN PRN Reason: Consult order Pharmacy Consult (Consult Rx Vancomycin Dosing) 1 each MISCELLANE DAILY PRN PRN Reason: Consult order Senna (Sennosides 8.6 Mg Tablet) 17.2 mg PO BEDTIME PRN PRN Reason: Constipation Sodium Chloride (0.9 % Sodium Chloride Flush 3 Ml Syringe) 3 ml IVFLUSH QSHIFT [facility] Last Admin: 09/17/21 09:59 Dose: 3 ml Documented by: Tamsulosin HCl (Tamsulosin Hcl 0.4 Mg Capsule) 0.4 mg PO DAILY [facility] Last Admin: 09/17/21 09:59 Dose: 0.4 mg Documented by: Time Spent With Patient Time: Total time spent is greater than 50% in coordination of care (as documented) at patient's floor/unit and/or counseling patient: Time with patient: 15 - 24 minutes Progress Note: Quality Stroke Does the patient have a stroke diagnosis?: No Procedures Date of Service Date of Service: 09/17/21
--- NOTE | 2021-09-17 11:38 | P.PNCC_ITS ---
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 Patient has been treated with broad-spectrum antibiotics and required vasopressor support His initial transthoracic 2D echocardiogram did not demonstrate any vegetation. Patient has been evaluated by Cardiology se rvice. No events overnight. Critical Care Time (minutes): 45 Physical Exam Vital Signs: Vital Signs: Last Vital Signs Temp 97.7 F 09/16/21 16:00 Pulse 61 09/17/21 11:00 Resp 28 H 09/17/21 11:00 BP 127/47 L 09/17/21 11:00 Pulse Ox 99 09/17/21 11:00 BMI result Body Mass Index 30.2 Const: General: no acute distress, alert and awake Eyes: Sclerae: sclerae normal EOM: EOMs intact bilaterally Neck: Neck: Yes no lymphadenopathy, Yes trachea midline and Yes supple Resp: Effort & Inspection: normal respiratory effort and no respiratory distress Auscultation: clear to auscultation bilaterally Cardio: Rate: regular rate Rhythm: regular rhythm Heart sounds: no gallops, no murmurs and no rubs GI: Palpation (GI): Soft to palpation and Other GI palpation findings present ( Nontender) Auscultation: normal bowel sounds Extrem: General: No clubbing, No cyanosis, Yes pedal edema (Trace bilateral) and Yes other (Left foot diabetic ulcer) Objective Data Labs CBC & Chem 7: 09/17/21 05:21 09/17/21 05:21 Labs: Laboratory Results - last 24 hr 09/16/21 09/16/21 09/16/21 12:46 16:34 21:02 WBC RBC Hgb Hct MCV MCH MCHC RDW Plt Count MPV Immature Gran % (Auto) Neut % (Auto) Lymph % (Auto) [place] % (Auto) Eos % (Auto) Baso % (Auto) Lymph # (Auto) [place] # (Auto) Eos # (Auto) Baso # (Auto) Abs Immat Gran (auto) Absolute Neuts (auto) Absolute Nucleated RBC Nucleated RBC % (auto) VBG pH VBG pCO2 VBG pO2 VBG HCO3 VBG O2 Saturation VBG Base Excess Sodium Potassium Chloride Carbon Dioxide Anion Gap BUN Creatinine Estim Creat Clear Calc Estimated GFR POC Glucose 307 H 134 H 122 H Random Glucose Calcium Phosphorus Magnesium Albumin 09/17/21 09/17/21 09/17/21 05:21 05:21 05:25 WBC 6.2 RBC 3.26 L Hgb 8.8 L Hct 28.1 L MCV 86.2 MCH 27.0 MCHC 31.3 RDW 17.2 H Plt Count 80 L D MPV 11.4 Immature Gran % (Auto) 0.3 Neut % (Auto) 83.9 H Lymph % (Auto) 4.7 L [place] % (Auto) 8.9 Eos % (Auto) 1.9 Baso % (Auto) 0.3 Lymph # (Auto) 0.3 L [place] # (Auto) 0.6 Eos # (Auto) 0.1 Baso # (Auto) 0.0 Abs Immat Gran (auto) 0.02 Absolute Neuts (auto) 5.2 Absolute Nucleated RBC 0.000 Nucleated RBC % (auto) 0.0 VBG pH 7.39 VBG pCO2 36 VBG pO2 47 VBG HCO3 22 VBG O2 Saturation 71.0 VBG Base Excess -2.1 Sodium 135 Potassium 3.2 L Chloride 105 Carbon Dioxide 24 Anion Gap 9 L BUN 34 H Creatinine 1.24 Estim Creat Clear Calc 61.5 Estimated GFR 57 POC Glucose Random Glucose 179 H Calcium 7.9 L D Phosphorus 2.5 L Magnesium 2.0 Albumin 3.0 L 09/17/21 08:15 WBC RBC Hgb Hct MCV MCH MCHC RDW Plt Count MPV Immature Gran % (Auto) Neut % (Auto) Lymph % (Auto) [place] % (Auto) Eos % (Auto) Baso % (Auto) Lymph # (Auto) [place] # (Auto) Eos # (Auto) Baso # (Auto) Abs Immat Gran (auto) Absolute Neuts (auto) Absolute Nucleated RBC Nucleated RBC % (auto) VBG pH VBG pCO2 VBG pO2 VBG HCO3 VBG O2 Saturation VBG Base Excess Sodium Potassium Chloride Carbon Dioxide Anion Gap BUN Creatinine Estim Creat Clear Calc Estimated GFR POC Glucose 171 H Random Glucose Calcium Phosphorus Magnesium Albumin Microbiology Microbiology Results: Microbiology 09/15/21 14:11 Blood - Venous Blood Culture - Final Streptococcus group c 09/15/21 13:45 Blood - Venous Blood Culture - Final Streptococcus group c Progress Note: A&P Assessment and plan (1) Atrial fibrillation: Status: Acute (2) Septic shock: Status: Acute (3) Streptococcal bacteremia: Status: Acute (4) Status post aortic valve replacement with bioprosthetic valve: Status: Acute (5) Status post coronary artery bypass graft: Status: Acute (6) Type 2 diabetes mellitus with unspecified complications: Status: Acute (7) Coronary artery disease: Status: Acute (8) Hypothyroidism: Status: Acute (9) Chronic kidney disease, unspecified: Status: Acute Assessment and Plan: Assessment: 71-year-old gentleman with underlying history of AVR, CABG, diabetic foot ulcer admitted with Gram-positive bacteremia Plan: Neuro: No acute issues. Cardiac: Septic shock secondary to Gram-positive bacteremia on the background of prior aortic valve replacement for aortic valve endocarditis. Transthoracic echocardiogram with no vegetation. Cardiology service care appreciated. Repeat blood cultures are pending. Underlying AFib on anticoagulation. Underlying right ventricular dysfunction. Pulmonary: No acute issues. Renal: Acute kidney injury likely secondary to septic shock, improved. Continue to monitor renal indices and urine output. Endo: No acute issues. GI: No acute issues. ID: Gram-positive bacteremia. Repeat blood cultures are pending. Continue broad-spectrum antibiotics. Heme/Onc: Thrombocytopenia likely secondary to septic shock. Psych: No acute issues. Miscellaneous: No acute issues. Prophylaxis: Eliquis Diet: Regular Critical care time spent: 45 minutes Quality Stroke Does the patient have a stroke diagnosis?: No VTE Prior VTE?: No VTE Risk Level:: Medical - moderate - high VTE Device Contraindication: Treatment Not Indicated VTE Drug Contraindication: N/A - Med Ordered
[2021-09-17 12:45] LABS: Glucose, Whole Blood 178 mg/dL (60-115)
[2021-09-17 16:06] LABS: Glucose, Whole Blood 177 mg/dL (60-115)
[2021-09-17 17:46] LABS: Vancomycin Random 13.1 mcg/mL (15-20)
[2021-09-17 20:43] LABS: Troponin-I High Sensitivity 236.2 ng/L (<3.5-35.0)
[2021-09-17 20:44] LABS: Glucose, Whole Blood 201 mg/dL (60-115)
[2021-09-17 20:46] LABS: Blood Urea Nitrogen 31 mg/dL (9-16); Creatinine Clr Calc Pharmacy 65.1; Estimated Glomerular Filt Rate > 60; Glucose Random 205 mg/dL (60-115)
[2021-09-17 21:05] LABS: Anion Gap 12 (12-20); Calcium 7.8 mg/dL (8.4-10.2); Carbon Dioxide 21 mmol/L (22-29); Chloride 105 mmol/L (96-108); Phosphorus 2.1 mg/dL (2.7-4.5); Potassium 3.9 mmol/L (3.3-5.1); Sodium 134 mmol/L (135-145)
[2021-09-17] MEDS: vancomycin HCL 1,250 MG in 0.9 % Sodium Chloride 250 ML 166.67 MG IV (21:18)
[2021-09-17] MEDS: Ezetimibe 10 MG TABLET PO (21:18)
[2021-09-17] MEDS: DOPamine HCL/D5W 400 MG/250 ML PLAST..BAG 24.49 MG IVCONT (21:18)
[2021-09-17] MEDS: Atorvastatin Calcium 80 MG TABLET PO (21:19)
[2021-09-17 23:53] LABS: Troponin-I High Sensitivity 202.3 ng/L (<3.5-35.0)
[2021-09-18] VITALS (26 sets, daily range): BP systolic 100–145; BP diastolic 38–73; PULSE 56–80; RESP 13–33; TEMP 36.2–36.7; O2SAT 90–97; BMI 30.4
[2021-09-18] MEDS: Piperacillin Sodium/Tazobactam 3.375 GM in 0.9 % Sodium Chloride 50 ML IV ×2 (00:44→05:40)
[2021-09-18] MEDS: Melatonin 3 MG TABLET 6 MG PO ×2 (02:44→23:43)
[2021-09-18 05:20] LABS: VBG Base Excess -0.3 mmol/L; VBG HCO3 23 mmol/L (22-26); VBG pCO2 34 mmHg; VBG pH 7.43 (7.32-7.43); VBG pO2 40 mmHg
[2021-09-18 05:37] LABS: MANUAL DIFF FLAG NO
[2021-09-18] MEDS: Omeprazole 20 MG CAPSULE.DR PO ×2 (05:39→16:00)
[2021-09-18 05:42] LABS: Basophils Percent Auto 0.4 % (0-2); Eosinophils Absolute Auto 0.2 X10*3/uL (0.0-0.4); Eosinophils Percent Auto 2.8 % (0-4); Hematocrit 28.5 % (42.0-52.0); Hemoglobin 8.9 g/dl (14.0-18.0); Imm Gran Abs Auto 0.03 X10*3/uL (0.00-0.03); Imm Gran Pct Auto 0.4 % (0.0-0.4); Lymphocytes Absolute Auto 0.4 X10*3/uL (1.2-4.9); Lymphocytes Percent Auto 5.8 % (20-40); Mean Corpuscular HGB Conc 31.2 g/dl (31.0-36.0); Mean Corpuscular Hemoglobin 26.7 pg (27.0-33.0); Mean Corpuscular Volume 85.6 fL (80.0-98.0); Mean Platelet Volume 11.5 fL (9.4-12.4); Monocytes Absolute Auto 0.5 X10*3/uL (0.1-1.2); Monocytes Percent Auto 7.2 % (2-11); Neutrophils Absolute Auto 5.9 x10*3/uL (2.0-8.3); Neutrophils Percent Auto 83.4 % (45-73); Red Blood Count 3.33 X10*6/uL (4.60-5.80)
[2021-09-18 05:46] LABS: Platelet Count 89 X10*3/uL (160-400)
[2021-09-18 06:12] LABS: Anion Gap 10 (12-20); Blood Urea Nitrogen 27 mg/dL (9-16); Calcium 7.7 mg/dL (8.4-10.2); Carbon Dioxide 24 mmol/L (22-29); Chloride 105 mmol/L (96-108); Creatinine Clr Calc Pharmacy 72.8; Estimated Glomerular Filt Rate > 60; Glucose Random 183 mg/dL (60-115); Magnesium 1.9 mg/dL (1.6-2.6); Phosphorus 2.1 mg/dL (2.7-4.5); Potassium 3.7 mmol/L (3.3-5.1); Sodium 135 mmol/L (135-145)
[2021-09-18 06:52] LABS: Venous Blood Gas Refer to POC result
--- NOTE | 2021-09-18 06:52 | PC.NURSE ---
Recieved pt. Pt alert and oriented and responds appropriately to questioning. Pupils are perrl pt moves extremities and can reposition self in bed. Pt is in afib at a rate of 80-100, on dopamine at a rate of 7. No edema noted. Pt LS are clear, dim in the left lower lobe. Pt did desat while sleeping during the night. Pt was placed on 2l nc at approximately 0200. Pt states no resp distress at any point. GI pt states he has had no BM in a few days. Abd is soft and non-tender. - pt has ross catheter with good output 30-70ml/hr of clear yellow urine. Pt is mildly weak and has had multiple falls at home recently. Pt skin is bruised on the lower back, left posterior and left shoulder. Pt has a diabetic foot ulcer on left foot that is wrapped clean dry intact. Pt did have trouble sleeping and was given 6mg of melatonin at approximately 0300. pt takes PO meds well and is recieving abx.
[2021-09-18 07:19] LABS: Glucose, Whole Blood 161 mg/dL (60-115)
[2021-09-18] MEDS: DOPamine HCL/D5W 400 MG/250 ML PLAST..BAG 24.49 MG IVCONT (07:40)
[2021-09-18] MEDS: Insulin Lispro 100 UNIT/ML 3 ML VIAL SUBCUT ×4 (07:41→21:01)
[2021-09-18] MEDS: Magnesium Oxide 400 MG TABLET PO ×3 (07:43→21:02)
[2021-09-18] MEDS: Tamsulosin HCL 0.4 MG CAPSULE PO (07:43)
[2021-09-18] MEDS: Apixaban 5 MG TABLET PO ×2 (07:43→21:02)
[2021-09-18] MEDS: 0.9 % Sodium Chloride Flush 3 ML SYRINGE IVFLUSH ×2 (07:43→16:00)
[2021-09-18] MEDS: Potassium Phosphate/NS 15 MMOL/250 ML PLAST..BAG 62.5 MMOL IV (09:05)
[2021-09-18] MEDS: Albumin Human 25 % 100 ML IV ×3 (09:29→21:02)
--- NOTE | 2021-09-18 10:32 | MHC.CLN ---
F/U PATIENT WITH LEFT FOOT DIABETIC ULCER. DIET=DIABETIC 2000 KCAL. ADDING GLUCERNA BID TO PROVIDE ADDITIONAL 474 KCAL, 20 G PROTEIN. CONTINUE TO FOLLOW WITH TEAM.
[2021-09-18 11:15] LABS: Glucose, Whole Blood 210 mg/dL (60-115)
[2021-09-18] MEDS: cefTRIAXone sodium 2 GM in 0.9 % Sodium Chloride 50 ML IV (11:20)
--- NOTE | 2021-09-18 11:47 | PM.CCPN ---
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 Patient has been treated with broad-spectrum antibiotics and required vasopressor support His initial transthoracic 2D echocardiogram did not demonstrate any vegetation. Patient has been evaluated by Cardiology service. No events overnight. Follow-up blood cultures are negative. Critical Care Time (minutes): 45 Physical Exam Vital Signs: Vital Signs: Last Vital Signs Temp 97.8 F 09/18/21 08:00 Pulse 78 09/18/21 11:26 Resp 26 H 09/18/21 11:00 BP 121/55 L 09/18/21 11:26 Pulse Ox 96 09/18/21 11:00 BMI result Body Mass Index 30.4 Const: General: no acute distress, alert and awake Eyes: Sclerae: sclerae normal EOM: EOMs intact bilaterally Neck: Neck: Yes no lymphadenopathy, Yes trachea midline and Yes supple Resp: Effort & Inspection: normal respiratory effort and no respiratory distress Auscultation: clear to auscultation bilaterally Cardio: Rate: regular rate Rhythm: abnormal rhythm irregularly irregular Heart sounds: no gallops, no murmurs and no rubs GI: Palpation (GI): Soft to palpation and Other GI palpation findings present ( Nontender) Auscultation: normal bowel sounds Extrem: General: No clubbing, No cyanosis and Yes pedal edema (1+ bilateral) Objective Data Labs CBC & Chem 7: 09/18/21 05:12 09/18/21 05:12 Labs: Laboratory Results - last 24 hr 09/17/21 09/17/21 09/17/21 12:08 16:03 16:50 WBC RBC Hgb Hct MCV MCH MCHC RDW Plt Count MPV Immature Gran % (Auto) Neut % (Auto) Lymph % (Auto) [place] % (Auto) Eos % (Auto) Baso % (Auto) Lymph # (Auto) [place] # (Auto) Eos # (Auto) Baso # (Auto) Abs Immat Gran (auto) Absolute Neuts (auto) Absolute Nucleated RBC Nucleated RBC % (auto) VBG pH VBG pCO2 VBG pO2 VBG HCO3 VBG O2 Saturation VBG Base Excess Sodium Potassium Chloride Carbon Dioxide Anion Gap BUN Creatinine Estim Creat Clear Calc Estimated GFR POC Glucose 178 H 177 H Random Glucose Calcium Phosphorus Magnesium Troponin I High Sens Albumin Random Vancomycin 13.1 L 09/17/21 09/17/21 09/17/21 19:25 19:50 20:39 WBC RBC Hgb Hct MCV MCH MCHC RDW Plt Count MPV Immature Gran % (Auto) Neut % (Auto) Lymph % (Auto) [place] % (Auto) Eos % (Auto) Baso % (Auto) Lymph # (Auto) [place] # (Auto) Eos # (Auto) Baso # (Auto) Abs Immat Gran (auto) Absolute Neuts (auto) Absolute Nucleated RBC Nucleated RBC % (auto) VBG pH VBG pCO2 VBG pO2 VBG HCO3 VBG O2 Saturation VBG Base Excess Sodium 134 L Potassium 3.9 D Chloride 105 Carbon Dioxide 21 L Anion Gap 12 BUN 31 H Creatinine 1.17 Estim Creat Clear Calc 65.1 Estimated GFR > 60 POC Glucose 201 H Random Glucose 205 H Calcium 7.8 L Phosphorus 2.1 L Magnesium 2.0 Troponin I High Sens 236.2 H* D Albumin Random Vancomycin 09/17/21 09/18/21 09/18/21 23:15 05:12 05:12 WBC 7.0 RBC 3.33 L Hgb 8.9 L Hct 28.5 L MCV 85.6 MCH 26.7 L MCHC 31.2 RDW 17.0 H Plt Count 89 L MPV 11.5 Immature Gran % (Auto) 0.4 Neut % (Auto) 83.4 H Lymph % (Auto) 5.8 L [place] % (Auto) 7.2 Eos % (Auto) 2.8 Baso % (Auto) 0.4 Lymph # (Auto) 0.4 L [place] # (Auto) 0.5 Eos # (Auto) 0.2 Baso # (Auto) 0.0 Abs Immat Gran (auto) 0.03 Absolute Neuts (auto) 5.9 Absolute Nucleated RBC 0.000 Nucleated RBC % (auto) 0.0 VBG pH VBG pCO2 VBG pO2 VBG HCO3 VBG O2 Saturation VBG Base Excess Sodium 135 Potassium 3.7 Chloride 105 Carbon Dioxide 24 Anion Gap 10 L BUN 27 H Creatinine 1.05 Estim Creat Clear Calc 72.8 Estimated GFR > 60 POC Glucose Random Glucose 183 H Calcium 7.7 L Phosphorus 2.1 L Magnesium 1.9 Troponin I High Sens 202.3 H* Albumin 3.0 L Random Vancomycin 09/18/21 09/18/21 09/18/21 05:13 07:15 11:12 WBC RBC Hgb Hct MCV MCH MCHC RDW Plt Count MPV Immature Gran % (Auto) Neut % (Auto) Lymph % (Auto) [place] % (Auto) Eos % (Auto) Baso % (Auto) Lymph # (Auto) [place] # (Auto) Eos # (Auto) Baso # (Auto) Abs Immat Gran (auto) Absolute Neuts (auto) Absolute Nucleated RBC Nucleated RBC % (auto) VBG pH 7.43 VBG pCO2 34 VBG pO2 40 VBG HCO3 23 VBG O2 Saturation 60.0 VBG Base Excess -0.3 Sodium Potassium Chloride Carbon Dioxide Anion Gap BUN Creatinine Estim Creat Clear Calc Estimated GFR POC Glucose 161 H 210 H Random Glucose Calcium Phosphorus Magnesium Troponin I High Sens Albumin Random Vancomycin Microbiology Microbiology Results: Microbiology 09/16/21 10:06 Blood - Venous Blood Culture - Preliminary No growth after 24 hours. 09/16/21 10:02 Blood - Venous Blood Culture - Preliminary No growth after 24 hours. 09/15/21 14:11 Blood - Venous Blood Culture - Final Streptococcus group c 09/15/21 13:45 Blood - Venous Blood Culture - Final Streptococcus group c Progress Note: A&P Assessment and plan (1) Streptococcal bacteremia: Status: Acute (2) Septic shock: Status: Acute (3) Atrial fibrillation: Status: Acute (4) Diabetic foot ulcer: Status: Acute (5) Persistent atrial fibrillation: Status: Acute Assessment and Plan: Assessment: 71-year-old gentleman with underlying history of AVR, CABG, diabetic foot ulcer admitted with Gram-positive bacteremia Plan: Neuro: No acute issues. Cardiac: Septic shock secondary to streptococcal bacteremia on the background of prior aortic valve replacement for aortic valve endocarditis. Continue to titrate off vasopressors as tolerated. Transthoracic echocardiogram with no vegetation. Cardiology service care appreciated. Repeat blood cultures are negative. Underlying AFib on anticoagulation. Underlying right ventricular dysfunction. Pulmonary: No acute issues. Renal: Acute kidney injury likely secondary to septic shock, improved. Continue to monitor renal indices and urine output. Endo: No acute issues. GI: No acute issues. ID: Streptococcal bacteremia. Repeat blood cultures are negative, will switch broad-spectrum antibiotics to ceftriaxone. Heme/Onc: Thrombocytopenia likely secondary to septic shock. Psych: No acute issues. Miscellaneous: No acute issues. Prophylaxis: Eliquis Diet: Regular Critical care time spent: 45 minutes Quality Stroke Does the patient have a stroke diagnosis?: No VTE Prior VTE?: No VTE Risk Level:: Medical - moderate - high VTE Device Contraindication: Treatment Not Indicated VTE Drug Contraindication: N/A - Med Ordered
[2021-09-18 16:54] LABS: Glucose, Whole Blood 254 mg/dL (60-115)
[2021-09-18 20:57] LABS: Glucose, Whole Blood 208 mg/dL (60-115)
[2021-09-18] MEDS: DOPamine HCL/D5W 400 MG/250 ML PLAST..BAG 8.75 MG IVCONT (21:01)
[2021-09-18] MEDS: Ezetimibe 10 MG TABLET PO (21:02)
[2021-09-18] MEDS: Atorvastatin Calcium 80 MG TABLET PO (21:02)
[2021-09-19] VITALS (15 sets, daily range): BP systolic 116–137; BP diastolic 42–68; PULSE 46–79; RESP 21–32; TEMP 36.7; O2SAT 92–98; BMI 31.3
[2021-09-19 00:29] LABS: Glucose, Whole Blood 172 mg/dL (60-115)
[2021-09-19] MEDS: Albumin Human 25 % 100 ML IV (02:12)
[2021-09-19 05:33] LABS: VBG Base Excess 0.5 mmol/L; VBG HCO3 24 mmol/L (22-26); VBG pCO2 34 mmHg; VBG pH 7.44 (7.32-7.43); VBG pO2 47 mmHg
[2021-09-19 05:34] LABS: Venous Blood Gas Refer to POC result
[2021-09-19 05:41] LABS: MANUAL DIFF FLAG NO
[2021-09-19 05:53] LABS: Basophils Percent Auto 0.4 % (0-2); Eosinophils Absolute Auto 0.2 X10*3/uL (0.0-0.4); Eosinophils Percent Auto 3.2 % (0-4); Hematocrit 25.4 % (42.0-52.0); Hemoglobin 7.9 g/dl (14.0-18.0); Imm Gran Abs Auto 0.01 X10*3/uL (0.00-0.03); Imm Gran Pct Auto 0.2 % (0.0-0.4); Lymphocytes Absolute Auto 0.4 X10*3/uL (1.2-4.9); Lymphocytes Percent Auto 8.9 % (20-40); Mean Corpuscular HGB Conc 31.1 g/dl (31.0-36.0); Mean Corpuscular Hemoglobin 26.6 pg (27.0-33.0); Mean Corpuscular Volume 85.5 fL (80.0-98.0); Mean Platelet Volume 12.2 fL (9.4-12.4); Monocytes Absolute Auto 0.5 X10*3/uL (0.1-1.2); Monocytes Percent Auto 9.7 % (2-11); Neutrophils Absolute Auto 3.7 x10*3/uL (2.0-8.3); Neutrophils Percent Auto 77.6 % (45-73); Red Blood Count 2.97 X10*6/uL (4.60-5.80); White Blood Count 4.7 X10*3/uL (4.8-10.8)
[2021-09-19 06:12] LABS: Platelet Count 75 X10*3/uL (160-400)
[2021-09-19] MEDS: Omeprazole 20 MG CAPSULE.DR PO ×2 (06:12→17:11)
[2021-09-19] MEDS: Levothyroxine Sodium 50 MCG TABLET PO (06:12)
[2021-09-19 06:15] LABS: Albumin Level 3.5 g/dL (3.5-5.0); Anion Gap 11 (12-20); Blood Urea Nitrogen 27 mg/dL (9-16); Calcium 8.2 mg/dL (8.4-10.2); Carbon Dioxide 24 mmol/L (22-29); Chloride 105 mmol/L (96-108); Creatinine Clr Calc Pharmacy 71.2; Estimated Glomerular Filt Rate > 60; Glucose Random 144 mg/dL (60-115); Magnesium 1.7 mg/dL (1.6-2.6); Potassium 3.6 mmol/L (3.3-5.1); Sodium 136 mmol/L (135-145)
--- NOTE | 2021-09-19 06:24 | PC.NURSE ---
Recieved pt. Pt alert and oriented times four. Pt pupils are perrl, speechis clear and moves all ext. Cardiac pt is in afib, no edema noted. Pt LS are clear dim in the lll. PT did desat into the high 80s while sleeping and he was placed on 2L NC with good effect bringing sats into the 90s. Pt states no BM abd is soft non-tender. pt has ross 20-40ml/hr of dark yellow concentrated urine. Pt has mild weakness. Pt has bruising on lower posterior, left lateral posterior, and left posterior shoulder. Pt has a pillow under that left side and reports no pain. Pt has a left foot ulcer, bandaged with some shadowing but is dry and intact. Pt had TLC dressing change at 2330 on 09/18. Pt states no complaints.
[2021-09-19 07:27] LABS: Glucose, Whole Blood 142 mg/dL (60-115)
[2021-09-19] MEDS: Apixaban 5 MG TABLET PO ×2 (07:39→21:12)
[2021-09-19] MEDS: Tamsulosin HCL 0.4 MG CAPSULE PO (07:39)
[2021-09-19] MEDS: Magnesium Oxide 400 MG TABLET PO ×3 (07:39→21:12)
[2021-09-19] MEDS: 0.9 % Sodium Chloride Flush 3 ML SYRINGE IVFLUSH (07:41)
[2021-09-19] MEDS: Potassium Phosphate/NS 15 MMOL/250 ML PLAST..BAG 62.5 MMOL IV ×2 (07:43→11:48)
--- NOTE | 2021-09-19 08:23 | MHC.CM.PN ---
pt remains in the icu, dc plan at this time remains the same for patient to return home c his and cont. visits c [facility]. cm to cont. to follow.
[2021-09-19 11:31] LABS: Glucose, Whole Blood 203 mg/dL (60-115)
[2021-09-19] MEDS: cefTRIAXone sodium 2 GM in 0.9 % Sodium Chloride 50 ML IV (11:43)
[2021-09-19] MEDS: Insulin Lispro 100 UNIT/ML 3 ML VIAL SUBCUT ×2 (11:56→22:36)
--- NOTE | 2021-09-19 14:02 | PM.CCPN ---
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 Patient has been treated with broad-spectrum antibiotics and required vasopressor support His initial transthoracic 2D echocardiogram did not demonstrate any vegetation. Patient has been evaluated by Cardiology service. No events overnight. Follow-up blood cultures remain negative. Titrated off dopamine. Critical Care Time (minutes): 0 Physical Exam Vital Signs: Vital Signs: Last Vital Signs Temp 98.0 F 09/18/21 20:00 Pulse 59 09/19/21 12:00 Resp 28 H 09/19/21 12:00 BP 137/56 L 09/19/21 12:00 Pulse Ox 95 09/19/21 12:00 BMI result Body Mass Index 31.3 Const: General: no acute distress, alert and awake Eyes: Sclerae: sclerae normal EOM: EOMs intact bilaterally Neck: Neck: Yes no lymphadenopathy, Yes trachea midline and Yes supple Resp: Effort & Inspection: normal respiratory effort and no respiratory distress Auscultation: clear to auscultation bilaterally Cardio: Rate: bradycardic Rhythm: abnormal rhythm irregularly irregular Heart sounds: no gallops, no murmurs and no rubs GI: Palpation (GI): Soft to palpation and Other GI palpation findings present ( Nontender) Auscultation: normal bowel sounds Extrem: General: No clubbing, No cyanosis, Yes pedal edema (Trace bilateral) and Yes other (Left foot diabetic ulcer) Objective Data Labs CBC & Chem 7: 09/19/21 05:20 09/19/21 05:20 Labs: Laboratory Results - last 24 hr 09/18/21 09/18/21 09/19/21 16:38 20:53 00:26 WBC RBC Hgb Hct MCV MCH MCHC RDW Plt Count MPV Immature Gran % (Auto) Neut % (Auto) Lymph % (Auto) [place] % (Auto) Eos % (Auto) Baso % (Auto) Lymph # (Auto) [place] # (Auto) Eos # (Auto) Baso # (Auto) Abs Immat Gran (auto) Absolute Neuts (auto) Absolute Nucleated RBC Nucleated RBC % (auto) VBG pH VBG pCO2 VBG pO2 VBG HCO3 VBG O2 Saturation VBG Base Excess Sodium Potassium Chloride Carbon Dioxide Anion Gap BUN Creatinine Estim Creat Clear Calc Estimated GFR POC Glucose 254 H 208 H 172 H Random Glucose Calcium Phosphorus Magnesium Albumin 09/19/21 09/19/21 09/19/21 05:20 05:20 05:26 WBC 4.7 L RBC 2.97 L Hgb 7.9 L Hct 25.4 L MCV 85.5 MCH 26.6 L MCHC 31.1 RDW 17.0 H Plt Count 75 L MPV 12.2 Immature Gran % (Auto) 0.2 Neut % (Auto) 77.6 H Lymph % (Auto) 8.9 L [place] % (Auto) 9.7 Eos % (Auto) 3.2 Baso % (Auto) 0.4 Lymph # (Auto) 0.4 L [place] # (Auto) 0.5 Eos # (Auto) 0.2 Baso # (Auto) 0.0 Abs Immat Gran (auto) 0.01 Absolute Neuts (auto) 3.7 Absolute Nucleated RBC 0.000 Nucleated RBC % (auto) 0.0 VBG pH 7.44 H VBG pCO2 34 VBG pO2 47 VBG HCO3 24 VBG O2 Saturation 71.0 VBG Base Excess 0.5 Sodium 136 Potassium 3.6 Chloride 105 Carbon Dioxide 24 Anion Gap 11 L BUN 27 H Creatinine 1.09 Estim Creat Clear Calc 71.2 Estimated GFR > 60 POC Glucose Random Glucose 144 H Calcium 8.2 L D Phosphorus 2.0 L Magnesium 1.7 Albumin 3.5 09/19/21 09/19/21 07:21 11:28 WBC RBC Hgb Hct MCV MCH MCHC RDW Plt Count MPV Immature Gran % (Auto) Neut % (Auto) Lymph % (Auto) [place] % (Auto) Eos % (Auto) Baso % (Auto) Lymph # (Auto) [place] # (Auto) Eos # (Auto) Baso # (Auto) Abs Immat Gran (auto) Absolute Neuts (auto) Absolute Nucleated RBC Nucleated RBC % (auto) VBG pH VBG pCO2 VBG pO2 VBG HCO3 VBG O2 Saturation VBG Base Excess Sodium Potassium Chloride Carbon Dioxide Anion Gap BUN Creatinine Estim Creat Clear Calc Estimated GFR POC Glucose 142 H 203 H Random Glucose Calcium Phosphorus Magnesium Albumin Microbiology Microbiology Results: Microbiology 09/16/21 10:06 Blood - Venous Blood Culture - Preliminary No growth after 48 hours. 09/16/21 10:02 Blood - Venous Blood Culture - Preliminary No growth after 48 hours. 09/15/21 14:11 Blood - Venous Blood Culture - Final Streptococcus group c 09/15/21 13:45 Blood - Venous Blood Culture - Final Streptococcus group c Progress Note: A&P Assessment and plan (1) Diabetic foot ulcer: Status: Acute (2) Streptococcal bacteremia: Status: Acute (3) Atrial fibrillation: Status: Acute (4) Chronic kidney disease, unspecified: Status: Acute (5) Persistent atrial fibrillation: Status: Acute (6) Hypothyroidism: Status: Acute (7) Coronary artery disease: Status: Acute Assessment and Plan: Assessment: 71-year-old gentleman with underlying history of AVR, CABG, diabetic foot ulcer admitted with Gram-positive bacteremia Plan: Neuro: No acute issues. Cardiac: Septic shock secondary to streptococcal bacteremia on the background of prior aortic valve replacement for aortic valve endocarditis, resolved. Titrated off vasopressors. Transthoracic echocardiogram with no vegetation. Cardiology service care appreciated. Repeat blood cultures are negative. Underlying AFib on anticoagulation with intermittent bradycardia, may require ppm placement. Underlying right ventricular dysfunction. Pulmonary: No acute issues. Renal: Acute kidney injury likely secondary to septic shock, improved. Continue to monitor renal indices and urine output. Endo: No acute issues. GI: No acute issues. ID: Streptococcal bacteremia. Repeat blood cultures are negative, continue on ceftriaxone for 14 days Heme/Onc: Thrombocytopenia likely secondary to septic shock. Psych: No acute issues. Miscellaneous: No acute issues. Prophylaxis: Eliquis Diet: Regular Quality Stroke Does the patient have a stroke diagnosis?: No VTE Prior VTE?: No VTE Risk Level:: Medical - moderate - high VTE Device Contraindication: Treatment Not Indicated VTE Drug Contraindication: N/A - Med Ordered
--- NOTE | 2021-09-19 16:09 | PC.NURSE ---
Skin/wound assessment. Patient has bruising to left upper back and left lower back from a fall. patient also has a diabetic ulcer to left plantar foot. Orders for cleaning with wound cleanser, then EPC cream on edges of wound, silver alginate to wound bed cover with non woven gauze and roll gauze.
[2021-09-19 17:25] LABS: Glucose, Whole Blood 140 mg/dL (60-115)
[2021-09-19] MEDS: Ezetimibe 10 MG TABLET PO (21:11)
[2021-09-19] MEDS: Atorvastatin Calcium 80 MG TABLET PO (21:11)
[2021-09-19 22:36] LABS: Glucose, Whole Blood 176 mg/dL (60-115)
[2021-09-20] VITALS (8 sets, daily range): BP systolic 140–159; BP diastolic 62–77; PULSE 58–94; RESP 20–32; TEMP 37–37.6; O2SAT 94–98; BMI 30.8
[2021-09-20] MEDS: 0.9 % Sodium Chloride Flush 3 ML SYRINGE IVFLUSH ×3 (00:06→15:17)
[2021-09-20] MEDS: Omeprazole 20 MG CAPSULE.DR PO ×2 (05:35→16:28)
[2021-09-20 05:37] LABS: MANUAL DIFF FLAG NO
[2021-09-20 05:56] LABS: Basophils Percent Auto 0.6 % (0-2); Eosinophils Absolute Auto 0.2 X10*3/uL (0.0-0.4); Eosinophils Percent Auto 2.7 % (0-4); Hematocrit 25.8 % (42.0-52.0); Hemoglobin 8.2 g/dl (14.0-18.0); Imm Gran Abs Auto 0.05 X10*3/uL (0.00-0.03); Imm Gran Pct Auto 0.8 % (0.0-0.4); Lymphocytes Absolute Auto 0.5 X10*3/uL (1.2-4.9); Lymphocytes Percent Auto 7.6 % (20-40); Mean Corpuscular HGB Conc 31.8 g/dl (31.0-36.0); Mean Corpuscular Volume 84.9 fL (80.0-98.0); Mean Platelet Volume 11.8 fL (9.4-12.4); Monocytes Absolute Auto 0.5 X10*3/uL (0.1-1.2); Monocytes Percent Auto 8.3 % (2-11); Platelet Count 108 X10*3/uL (160-400); Red Blood Count 3.04 X10*6/uL (4.60-5.80); Red Cell Distribution Width 17.3 % (11.0-16.0); White Blood Count 6.3 X10*3/uL (4.8-10.8)
[2021-09-20 06:05] LABS: Anion Gap 10 (12-20); Calcium 8.2 mg/dL (8.4-10.2); Carbon Dioxide 25 mmol/L (22-29); Chloride 104 mmol/L (96-108); Creatinine Clr Calc Pharmacy 75.3; Estimated Glomerular Filt Rate > 60; Phosphorus 2.4 mg/dL (2.7-4.5); Potassium 3.8 mmol/L (3.3-5.1); Sodium 135 mmol/L (135-145)
[2021-09-20 06:30] LABS: Albumin Level 3.3 g/dL (3.5-5.0); Blood Urea Nitrogen 22 mg/dL (9-16); Glucose Random 146 mg/dL (60-115); Magnesium 1.6 mg/dL (1.6-2.6)
--- NOTE | 2021-09-20 06:34 | PC.NURSE ---
Pt slept on and off in naps during the night. Denied pain or discomfort. Bp stable. Monitor showed afib, rate 60-70's, occ PVC noted. Temp high 99.7 core. U/o good via ross cath. Taking po fluids well. Dsg right foot is D&I.
[2021-09-20 07:35] LABS: Glucose, Whole Blood 147 mg/dL (60-115)
--- NOTE | 2021-09-20 09:09 | P.PNIM_ITS ---
Subjective Subjective Date of Service: 09/21/21 Interval History: strep bacteremia , dm foot ulcer Review of Systems seems feeling- Physical Exam Vital Signs: Vital Signs: Last Vital Signs Temp 98.6 F 09/20/21 08:00 Pulse 75 09/20/21 08:00 Resp 20 09/20/21 08:00 BP 157/71 H 09/20/21 08:00 Pulse Ox 98 09/20/21 08:00 BMI result Body Mass Index 30.8 Objective Data Active Medications Apixaban (Apixaban 5 Mg Tablet) 5 mg PO BID [facility] Last Admin: 09/19/21 21:12 Dose: 5 mg Documented by: ISAAC Atorvastatin Calcium (Atorvastatin Calcium 80 Mg Tablet) 80 mg PO BEDTIME [facility] Last Admin: 09/19/21 21:11 Dose: 80 mg Documented by: ISAAC Dextrose (Dextrose 50 % 25 Gm/50 Ml Vial) 25 gm IVPUSH Q15M PRN; Protocol PRN Reason: per Hypoglycemia Standing Ord. Ezetimibe (Ezetimibe 10 Mg Tablet) 10 mg PO BEDTIME [facility] Last Admin: 09/19/21 21:11 Dose: 10 mg Documented by: ISAAC Glucose (Glucose Gel 15 Gm Gel..Gram.) 15 gm PO Q15M PRN; Protocol PRN Reason: per Hypoglycemia Standing Ord. Ceftriaxone Sodium 2 gm/ (Sodium Chloride) 50 mls @ 100 mls/hr IV Q24H [facility] Last Infusion: 09/19/21 12:20 Dose: 0 mls/hr Documented by: IGLESM Insulin Human Lispro (Insulin Lispro 100 Unit/Ml 3 Ml Vial) 0 unit SUBCUT QIDACHS [facility]; Protocol Last Admin: 09/20/21 07:33 Dose: Not Given Documented by: IGLESM Non-Admin Reason: No Insulin Coverage Levothyroxine Sodium (Levothyroxine Sodium 50 Mcg Tablet) 50 mcg PO Q2D@0630 [facility] Last Admin: 09/19/21 06:12 Dose: 50 mcg Documented by: CYRZ Magnesium Oxide (Magnesium Oxide 400 Mg Tablet) 400 mg PO TID [facility] Last Admin: 09/19/21 21:12 Dose: 400 mg Documented by: ISAAC Melatonin (Melatonin 3 Mg Tablet) 6 mg PO BEDTIME PRN PRN Reason: Sleep Last Admin: 09/18/21 23:43 Dose: 6 mg Documented by: CYRZ Omeprazole (Omeprazole 20 Mg Capsule.) 20 mg PO BID@0630,7190 [facility] Last Admin: 09/20/21 05:35 Dose: 20 mg Documented by: ISAAC Pharmacy Consult (Consult Rx Perform Med Rec) 1 each MISCELLANE ONCE PRN PRN Reason: Consult order Senna (Sennosides 8.6 Mg Tablet) 17.2 mg PO BEDTIME PRN PRN Reason: Constipation Sodium Chloride (0.9 % Sodium Chloride Flush 3 Ml Syringe) 3 ml IVFLUSH QSHIFT [facility] Last Admin: 09/20/21 00:06 Dose: 3 ml Documented by: ISAAC Tamsulosin HCl (Tamsulosin Hcl 0.4 Mg Capsule) 0.4 mg PO DAILY [facility] Last Admin: 09/19/21 07:39 Dose: 0.4 mg Documented by: MARISELA Labs CBC & Chem 7: 09/20/21 05:30 09/20/21 05:30 Labs: Laboratory Results - last 24 hr 09/19/21 09/19/21 09/19/21 11:28 17:09 22:32 MCV MCH MCHC RDW Plt Count MPV Immature Gran % (Auto) Neut % (Auto) Lymph % (Auto) Cecil % (Auto) Eos % (Auto) Baso % (Auto) Lymph # (Auto) Cecil # (Auto) Eos # (Auto) Baso # (Auto) Abs Immat Gran (auto) Absolute Neuts (auto) Absolute Nucleated RBC Nucleated RBC % (auto) Anion Gap Estim Creat Clear Calc Estimated GFR POC Glucose 203 H 140 H 176 H Random Glucose Calcium Phosphorus Magnesium Albumin 09/20/21 09/20/21 09/20/21 05:30 05:30 07:32 MCV 84.9 MCH 27.0 MCHC 31.8 RDW 17.3 H Plt Count 108 L D MPV 11.8 Immature Gran % (Auto) 0.8 H Neut % (Auto) 80.0 H Lymph % (Auto) 7.6 L Cecil % (Auto) 8.3 Eos % (Auto) 2.7 Baso % (Auto) 0.6 Lymph # (Auto) 0.5 L Cecil # (Auto) 0.5 Eos # (Auto) 0.2 Baso # (Auto) 0.0 Abs Immat Gran (auto) 0.05 H Absolute Neuts (auto) 5.0 Absolute Nucleated RBC 0.000 Nucleated RBC % (auto) 0.0 Anion Gap 10 L Estim Creat Clear Calc 75.3 Estimated GFR > 60 POC Glucose 147 H Random Glucose 146 H Calcium 8.2 L Phosphorus 2.4 L Magnesium 1.6 Albumin 3.3 L Assessment and Plan (1) Diabetic foot ulcer: Status: Acute (2) Streptococcal bacteremia: Status: Acute Assessment and Plan: 71-year-old male with a past medical history of hypertension, hyperlipidemia, diabetes, CAD status post CABG, 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 severe sepsis/bacteremia went to icu -needed for pressor support and antibiotics still on iv ceftriaxone 2 gm q24 as per cardio/echo:Transthoracic Echocardiography has not shown any obvious vegetation. intial blood culture strep group c , repeated blood cultures neg@48hrs. 2. afib: ?Underlying AFib on anticoagulation with intermittent bradycardia, may require ppm placement no on any rate control medication currently.? continue eliquis, 3. thombocytopenia : thought to be related to sepsis , improving 4.dm foot ulcer/strep bacteremia : on ceftroaxone added ID eval 5. dm:fs 140-200 fs with coverage Hba1c levels 6. HLP: added atorvastatin dvt prophylax:eliquis Quality Stroke Does the patient have a stroke diagnosis?: No VTE Prior VTE?: No VTE Risk Level:: Medical - moderate - high VTE Device Contraindication: Treatment Not Indicated VTE Drug Contraindication: N/A - Med Ordered
[2021-09-20] MEDS: Tamsulosin HCL 0.4 MG CAPSULE PO (10:29)
[2021-09-20] MEDS: cefTRIAXone sodium 2 GM in 0.9 % Sodium Chloride 50 ML IV (10:29)
[2021-09-20] MEDS: Apixaban 5 MG TABLET PO ×2 (10:29→20:39)
[2021-09-20] MEDS: Magnesium Oxide 400 MG TABLET PO ×3 (10:47→20:40)
[2021-09-20 11:58] LABS: Glucose, Whole Blood 195 mg/dL (60-115)
[2021-09-20] MEDS: Insulin Lispro 100 UNIT/ML 3 ML VIAL SUBCUT ×3 (12:17→20:39)
[2021-09-20 15:22] LABS: Alanine Aminotransferase 22 U/L (0-40); Alkaline Phosphatase 154 U/L (39-117); Aspartate Amino Transferase 24 U/L (5-37); Bilirubin Direct 0.9 mg/dL (0.0-0.5); Bilirubin Total 1.7 mg/dL (0.0-1.0); Total Protein 6.7 g/dL (6.5-8.0)
[2021-09-20 15:42] LABS: Thyroid Stimulating Hormone 6.06 uIU/mL (0.32-4.0)
[2021-09-20 16:02] LABS: Glucose, Whole Blood 214 mg/dL (60-115)
[2021-09-20 20:32] LABS: Glucose, Whole Blood 189 mg/dL (60-115)
[2021-09-20] MEDS: Atorvastatin Calcium 80 MG TABLET PO (20:40)
[2021-09-20] MEDS: Ezetimibe 10 MG TABLET PO (20:40)
--- NOTE | 2021-09-20 22:33 | W.PM.IDCN ---
History of Present Illness Data of Consult Service Date: 09/20/21 Requesting physician: Harry Henry Primary Care Provider: Nicolás Rai MD [facility] Reason for consult: sepsis He presents with fall three days before admission He has temperature and pain in left back and hip which has resolved. He has Group C strep bacteremia. This has cleared and WBC is normal now Review of Systems Review of Systems: Yes all other systems are reviewed and are negative PMFSH Past Medical History Medical History Chronic kidney disease, unspecified Coronary artery disease Endocarditis of aortic valve Essential hypertension Hemorrhage of gastrointestinal tract, unspecified History of hemodialysis HIT (heparin-induced thrombocytopenia) (~2018) Hyperlipidemia, unspecified Persistent atrial fibrillation Pulmonary nodule Type 2 diabetes mellitus with unspecified complications Functional capacity: independent ambulation Family History Family History Father Emphysema, unspecified Mother Cardiovascular disease Family history: reviewed and not pertinent Surgical History Surgical History History of cardiac catheterization (~11/17/18) History of lung biopsy (~02/14/21) History of maze procedure Status post aortic valve replacement with bioprosthetic valve (~01/2019) Status post coronary artery bypass graft (~01/2019) Status post foot surgery Social History Social History Household Members: Spouse Housing: House Do you presently have visiting nurse or other home services: No Alcohol intake: never Patient Tobacco Use Status: Former Tobacco user Advance Directives Date on File: 06/27/20 service: No Current occupational status: retired Meds Allergies Allergy/AdvReac Type Severity Reaction Status Date / Time Heparin Analogues Allergy Severe HIT Verified 06/18/21 12:31 [HEPARIN ANALOGUES] acetaminophen [From TYLENOL] Allergy Unknown UNKNOWN Verified 06/18/21 12:31 insulin glargine Allergy Unknown Toujeo- Verified 06/18/21 12:31 diarrhea Sulfa (Sulfonamide Allergy Unknown HIVES Verified 06/18/21 12:31 Antibiotics) [SULFA (SULFONAMIDE ANTIBIOTICS)] Active Medications: Current Medications Apixaban (Apixaban 5 Mg Tablet) 5 mg PO BID [facility] Last Admin: 09/20/21 20:39 Dose: 5 mg Documented by: Atorvastatin Calcium (Atorvastatin Calcium 80 Mg Tablet) 80 mg PO BEDTIME [facility] Last Admin: 09/20/21 20:40 Dose: 80 mg Documented by: Dextrose (Dextrose 50 % 25 Gm/50 Ml Vial) 25 gm IVPUSH Q15M PRN; Protocol PRN Reason: per Hypoglycemia Standing Ord. Ezetimibe (Ezetimibe 10 Mg Tablet) 10 mg PO BEDTIME [facility] Last Admin: 09/20/21 20:40 Dose: 10 mg Documented by: Glucose (Glucose Gel 15 Gm Gel..Gram.) 15 gm PO Q15M PRN; Protocol PRN Reason: per Hypoglycemia Standing Ord. Ceftriaxone Sodium 2 gm/ (Sodium Chloride) 50 mls @ 100 mls/hr IV Q24H [facility] Last Infusion: 09/20/21 12:14 Dose: Infused Documented by: Insulin Human Lispro (Insulin Lispro 100 Unit/Ml 3 Ml Vial) 0 unit SUBCUT QIDACHS [facility]; Protocol Last Admin: 09/20/21 20:39 Dose: 2 unit Documented by: Levothyroxine Sodium (Levothyroxine Sodium 50 Mcg Tablet) 50 mcg PO Q2D@0630 [facility] Last Admin: 09/19/21 06:12 Dose: 50 mcg Documented by: Magnesium Oxide (Magnesium Oxide 400 Mg Tablet) 400 mg PO TID [facility] Last Admin: 09/20/21 20:40 Dose: 400 mg Documented by: Melatonin (Melatonin 3 Mg Tablet) 6 mg PO BEDTIME PRN PRN Reason: Sleep Last Admin: 09/18/21 23:43 Dose: 6 mg Documented by: Omeprazole (Omeprazole 20 Mg Capsule.) 20 mg PO BID@0630,1630 [facility] Last Admin: 09/20/21 16:28 Dose: 20 mg Documented by: Pharmacy Consult (Consult Rx Perform Med Rec) 1 each MISCELLANE ONCE PRN PRN Reason: Consult order Senna (Sennosides 8.6 Mg Tablet) 17.2 mg PO BEDTIME PRN PRN Reason: Constipation Sodium Chloride (0.9 % Sodium Chloride Flush 3 Ml Syringe) 3 ml IVFLUSH QSHIFT [facility] Last Admin: 09/20/21 15:17 Dose: 3 ml Documented by: Tamsulosin HCl (Tamsulosin Hcl 0.4 Mg Capsule) 0.4 mg PO DAILY [facility] Last Admin: 09/20/21 10:29 Dose: 0.4 mg Documented by: Home Medications Medication Instructions Recorded Confirmed Last Taken Type atorvastatin 80 mg tablet 80 mg PO DAILY 07/18/20 09/15/21 Unknown History insulin glargine 100 unit/mL (3 22 unit SUBCUT DAILY 07/18/20 09/15/21 02/14/21 History mL) subcutaneous pen levothyroxine 50 mcg tablet 50 mcg PO Q2D@0630 07/18/20 09/15/21 Unknown History magnesium oxide 400 mg (241.3 mg 400 mg PO TID 07/18/20 09/15/21 Unknown History magnesium) tablet insulin lispro 100 unit/mL See Protocol SUBCUT QIDACHS 07/26/20 09/15/21 02/14/21 History subcutaneous pen (Humalog KwikPen (U-100) Insulin) tamsulosin 0.4 mg capsule (Flomax) 0.4 mg PO DAILY 07/26/20 09/15/21 Unknown History omeprazole 20 mg capsule,delayed 20 mg PO BID@0630,1630 01/09/21 09/15/21 Unknown History release blood sugar diagnostic #10 ea 02/01/21 04/30/21 Unknown History blood-glucose meter #1 ea 02/01/21 04/30/21 Unknown History pen needle, diabetic 32 gauge x #50 ea 02/01/21 04/30/21 Unknown History ezetimibe 10 mg tablet (Zetia) 10 mg PO BEDTIME 06/18/21 09/15/21 Unknown History Physical Exam Vital Signs: Vital Signs: Last Vital Signs Temp 99.7 F 09/20/21 19:03 Pulse 74 09/20/21 19:03 Resp 21 H 09/20/21 22:13 BP 159/77 H 09/20/21 19:03 Pulse Ox 95 09/20/21 19:03 BMI result Body Mass Index 30.8 Const: General: cooperative Eyes: General: appearance normal, both eyes and all related structures Pupils: Equal, round and reactive pupils present Resp: Effort & Inspection: normal respiratory effort Cardio: Rate: regular rate Rhythm: regular rhythm GI: Palpation (GI): Soft to palpation and nontender Skin: General skin exam: no rashes or lesions noted Neuro: Cranial nerves: Yes Equal, round and reactive pupils present Extrem: General: Yes normal to inspection Results Labs CBC & Chem 7: 09/20/21 05:30 09/20/21 05:30 Labs: Short CBC 09/20/21 Range/Units 05:30 WBC 6.3 (4.8-10.8) X10*3/uL Hgb 8.2 L (14.0-18.0) g/dl Hct 25.8 L (42.0-52.0) % Plt Count 108 L D (160-400) X10*3/uL BMP 09/20/21 05:30 Sodium 135 Potassium 3.8 Chloride 104 Carbon Dioxide 25 BUN 22 H Creatinine 1.03 Calcium 8.2 L Liver Function 09/20/21 Range/Units 05:30 Total Bilirubin 1.7 H (0.0-1.0) mg/dL Direct Bilirubin 0.9 H (0.0-0.5) mg/dL AST 24 (5-37) U/L ALT 22 (0-40) U/L Alkaline Phosphatase 154 H D (39-117) U/L Albumin 3.3 L (3.5-5.0) g/dL Microbiology Microbiology Results: Microbiology 09/16/21 10:06 Blood - Venous Blood Culture - Preliminary No growth after 48 hours. 09/16/21 10:02 Blood - Venous Blood Culture - Preliminary No growth after 48 hours. 09/15/21 14:11 Blood - Venous Blood Culture - Final Streptococcus group c 09/15/21 13:45 Blood - Venous Blood Culture - Final Streptococcus group c Assessment and Plan (1) Diabetic foot ulcer: Status: Acute (2) Streptococcal bacteremia: Status: Acute Bacteremia with Group C strep He has no endocarditis seen on TTE and has been seen by Cardiology Diabetic ulcer looks unremarkable but can still be source Ceftriaxone for six weeks Check MRI foot ulcer
[2021-09-21] VITALS (7 sets, daily range): BP systolic 132–167; BP diastolic 64–84; PULSE 50–84; RESP 18–25; TEMP 35.7–37.1; O2SAT 92–96
[2021-09-21] MEDS: 0.9 % Sodium Chloride Flush 3 ML SYRINGE IVFLUSH ×4 (00:43→20:25)
[2021-09-21] MEDS: Levothyroxine Sodium 50 MCG TABLET PO (05:51)
[2021-09-21] MEDS: Omeprazole 20 MG CAPSULE.DR PO ×2 (05:51→16:39)
[2021-09-21 07:18] LABS: Glucose, Whole Blood 167 mg/dL (60-115)
[2021-09-21] MEDS: Apixaban 5 MG TABLET PO ×2 (08:13→20:25)
[2021-09-21] MEDS: Insulin Lispro 100 UNIT/ML 3 ML VIAL SUBCUT ×4 (08:13→20:25)
[2021-09-21] MEDS: Tamsulosin HCL 0.4 MG CAPSULE PO (08:13)
[2021-09-21] MEDS: Magnesium Oxide 400 MG TABLET PO ×3 (08:13→20:24)
[2021-09-21 11:11] LABS: Glucose, Whole Blood 212 mg/dL (60-115)
[2021-09-21] MEDS: cefTRIAXone sodium 2 GM in 0.9 % Sodium Chloride 50 ML IV (11:41)
--- NOTE | 2021-09-21 12:07 | P.PNCA_ITS ---
Subjective Subjective Date of Service: 09/21/21 Interval history: Blood cultures cleared. Feeling better. Telemetry has shown mostly atrial fibrillation. Some slow heart rate are noticed at nighttime. No dizziness. Physical Exam Vital Signs: Last Vital Signs Temp 97.7 F 09/21/21 11:32 Pulse 84 09/21/21 11:32 Resp 18 09/21/21 11:32 BP 155/70 H 09/21/21 11:32 Pulse Ox 96 09/21/21 11:32 BMI result Body Mass Index 30.8 GENERAL APPEARANCE: in no acute distress, pleasant. NECK: Right IJ triple-lumen catheter. No significant JVD on the left side. SKIN: no suspicious lesions, warm and dry. HEART: no murmurs, irregular rate and rhythm. LUNGS: clear to auscultation bilaterally. ABDOMEN: soft, nontender. PERIPHERAL PULSES: equal. NEUROLOGIC: No gross deficits, AAO X 3 Objective Labs and Meds Result diagrams: 09/20/21 05:30 09/20/21 05:30 Lab results: Laboratory Results - last 24 hr 09/20/21 09/20/21 09/20/21 05:30 15:45 20:28 POC Glucose 214 H 189 H Total Bilirubin 1.7 H Direct Bilirubin 0.9 H AST 24 ALT 22 Alkaline Phosphatase 154 H D Total Protein 6.7 Albumin 3.3 L TSH 6.06 H 09/21/21 09/21/21 07:12 11:08 POC Glucose 167 H 212 H Total Bilirubin Direct Bilirubin AST ALT Alkaline Phosphatase Total Protein Albumin TSH Progress Note: A&P Assessment and plan (1) Atrial fibrillation: Status: Acute (2) Essential hypertension: Status: Acute Assessment and Plan: Pleasant 71-year-old gentleman who is presenting for weakness and bacteremia. Echocardiography did not show any evidence of vegetation. His blood cultures also cleared off antibiotics. He is appropriately being treated with antibiotics at this point. He is improving and has good appetite. Mostly in atrial fibrillation with slow to normal heart rates. Nighttime bradycardia noted which is likely due to high vagal tone and does not require any intervention at this point. Blood pressure is high. If creatinine is stable then can resume his home dose of lisinopril. With this significant RV dysfunction I think he should not get any beta-marlon, Cardizem or verapamil. Thank you for allowing me to participate in the care of your patient. Please feel free to contact me if you have any questions. Fall Risk Details Current Medications: Current Medications Apixaban (Apixaban 5 Mg Tablet) 5 mg PO BID [facility] Last Admin: 09/21/21 08:13 Dose: 5 mg Documented by: Atorvastatin Calcium (Atorvastatin Calcium 80 Mg Tablet) 80 mg PO BEDTIME [facility] Last Admin: 09/20/21 20:40 Dose: 80 mg Documented by: Dextrose (Dextrose 50 % 25 Gm/50 Ml Vial) 25 gm IVPUSH Q15M PRN; Protocol PRN Reason: per Hypoglycemia Standing Ord. Ezetimibe (Ezetimibe 10 Mg Tablet) 10 mg PO BEDTIME [facility] Last Admin: 09/20/21 20:40 Dose: 10 mg Documented by: Glucose (Glucose Gel 15 Gm Gel..Gram.) 15 gm PO Q15M PRN; Protocol PRN Reason: per Hypoglycemia Standing Ord. Ceftriaxone Sodium 2 gm/ (Sodium Chloride) 50 mls @ 100 mls/hr IV Q24H [facility] Last Admin: 09/21/21 11:41 Dose: 100 mls/hr Documented by: Insulin Human Lispro (Insulin Lispro 100 Unit/Ml 3 Ml Vial) 0 unit SUBCUT QIDACHS [facility]; Protocol Last Admin: 09/21/21 11:40 Dose: 4 unit Documented by: Levothyroxine Sodium (Levothyroxine Sodium 50 Mcg Tablet) 50 mcg PO Q2D@0630 [facility] Last Admin: 09/21/21 05:51 Dose: 50 mcg Documented by: Magnesium Oxide (Magnesium Oxide 400 Mg Tablet) 400 mg PO TID [facility] Last Admin: 09/21/21 08:13 Dose: 400 mg Documented by: Melatonin (Melatonin 3 Mg Tablet) 6 mg PO BEDTIME PRN PRN Reason: Sleep Last Admin: 09/18/21 23:43 Dose: 6 mg Documented by: Omeprazole (Omeprazole 20 Mg Capsule.) 20 mg PO BID@0630,1630 [facility] Last Admin: 09/21/21 05:51 Dose: 20 mg Documented by: Pharmacy Consult (Consult Rx Perform Med Rec) 1 each MISCELLANE ONCE PRN PRN Reason: Consult order Senna (Sennosides 8.6 Mg Tablet) 17.2 mg PO BEDTIME PRN PRN Reason: Constipation Sodium Chloride (0.9 % Sodium Chloride Flush 3 Ml Syringe) 3 ml IVFLUSH QSHIFT [facility] Last Admin: 09/21/21 08:13 Dose: 3 ml Documented by: Tamsulosin HCl (Tamsulosin Hcl 0.4 Mg Capsule) 0.4 mg PO DAILY [facility] Last Admin: 09/21/21 08:13 Dose: 0.4 mg Documented by: Time Spent With Patient Time: Total time spent is greater than 50% in coordination of care (as documented) at patient's floor/unit and/or counseling patient: Time with patient: 15 - 24 minutes Progress Note: Quality Stroke Does the patient have a stroke diagnosis?: No Procedures Date of Service Date of Service: 09/21/21
[2021-09-21 15:45] LABS: Glucose, Whole Blood 217 mg/dL (60-115)
--- NOTE | 2021-09-21 17:59 | HO.PM.IMPN ---
Subjective Subjective Date of Service: 09/22/21 Interval History: strep bacteremia Review of Systems denies any chest pain or sob Physical Exam Vital Signs: Vital Signs: Last Vital Signs Temp 98.2 F 09/21/21 15:12 Pulse 58 09/21/21 15:12 Resp 18 09/21/21 15:12 BP 149/71 H 09/21/21 15:12 Pulse Ox 96 09/21/21 15:12 BMI result Body Mass Index 30.8 not in acute distress cvs: [id number] res: clear to auscultation b/l abd: soft, nd,nt, bs present ext: pulses present , no cyanosis , foot ulcer seems clean ,mild seruos discharge neuro: axo3 , non focal Objective Data Active Medications Apixaban (Apixaban 5 Mg Tablet) 5 mg PO BID [facility] Last Admin: 09/21/21 08:13 Dose: 5 mg Documented by: JESSIE Atorvastatin Calcium (Atorvastatin Calcium 80 Mg Tablet) 80 mg PO BEDTIME [facility] Last Admin: 09/20/21 20:40 Dose: 80 mg Documented by: DEANNA Dextrose (Dextrose 50 % 25 Gm/50 Ml Vial) 25 gm IVPUSH Q15M PRN; Protocol PRN Reason: per Hypoglycemia Standing Ord. Ezetimibe (Ezetimibe 10 Mg Tablet) 10 mg PO BEDTIME [facility] Last Admin: 09/20/21 20:40 Dose: 10 mg Documented by: DEANNA Glucose (Glucose Gel 15 Gm Gel..Gram.) 15 gm PO Q15M PRN; Protocol PRN Reason: per Hypoglycemia Standing Ord. Ceftriaxone Sodium 2 gm/ (Sodium Chloride) 50 mls @ 100 mls/hr IV Q24H [facility] Last Infusion: 09/21/21 12:19 Dose: 0 mls/hr Documented by: JESSIE Insulin Human Lispro (Insulin Lispro 100 Unit/Ml 3 Ml Vial) 0 unit SUBCUT QIDACHS [facility]; Protocol Last Admin: 09/21/21 16:39 Dose: 4 unit Documented by: JESSIE Levothyroxine Sodium (Levothyroxine Sodium 50 Mcg Tablet) 50 mcg PO Q2D@0630 [facility] Last Admin: 09/21/21 05:51 Dose: 50 mcg Documented by: RICKIERORebeka Magnesium Oxide (Magnesium Oxide 400 Mg Tablet) 400 mg PO TID [facility] Last Admin: 09/21/21 16:39 Dose: 400 mg Documented by: JESSIE Melatonin (Melatonin 3 Mg Tablet) 6 mg PO BEDTIME PRN PRN Reason: Sleep Last Admin: 09/18/21 23:43 Dose: 6 mg Documented by: CYRZ Omeprazole (Omeprazole 20 Mg Capsule.) 20 mg PO BID@0630,1630 [facility] Last Admin: 09/21/21 16:39 Dose: 20 mg Documented by: JESSIE Pharmacy Consult (Consult Rx Perform Med Rec) 1 each MISCELLANE ONCE PRN PRN Reason: Consult order Senna (Sennosides 8.6 Mg Tablet) 17.2 mg PO BEDTIME PRN PRN Reason: Constipation Sodium Chloride (0.9 % Sodium Chloride Flush 3 Ml Syringe) 3 ml IVFLUSH QSHIFT [facility] Last Admin: 09/21/21 08:13 Dose: 3 ml Documented by: JESSIE Tamsulosin HCl (Tamsulosin Hcl 0.4 Mg Capsule) 0.4 mg PO DAILY [facility] Last Admin: 09/21/21 08:13 Dose: 0.4 mg Documented by: JESSIE Labs CBC & Chem 7: 09/20/21 05:30 09/20/21 05:30 Labs: Laboratory Results - last 24 hr 09/20/21 09/21/21 09/21/21 20:28 07:12 11:08 POC Glucose 189 H 167 H 212 H 09/21/21 15:29 POC Glucose 217 H Microbiology Microbiology Results: Microbiology 09/16/21 10:06 Blood Culture - Final Blood - Venous No growth after 5 days. 09/16/21 10:02 Blood Culture - Final Blood - Venous No growth after 5 days. 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 severe sepsis/bacteremia went to icu -needed for pressor support and antibiotics still on iv ceftriaxone 2 gm q24 as per cardio/echo:Transthoracic Echocardiography has not shown any obvious vegetation. intial blood culture strep group c , repeated blood cultures neg@48hrs. Id eval pending 2. afib: ?Underlying AFib on anticoagulation with intermittent bradycardia, may require ppm placement no on any rate control medication currently.? continue eliquis, 3. thombocytopenia : thought to be related to sepsis , improving 4.dm foot ulcer/strep bacteremia : on ceftroaxone added ID eval 5. dm:fs 140-200 fs with coverage Hba1c levels 6. HLP: added atorvastatin dvt prophylax:eliquis Quality Stroke Does the patient have a stroke diagnosis?: No VTE Prior VTE?: No VTE Risk Level:: Medical - moderate - high VTE Device Contraindication: Treatment Not Indicated VTE Drug Contraindication: N/A - Med Ordered
[2021-09-21 20:16] LABS: Glucose, Whole Blood 262 mg/dL (60-115)
[2021-09-21] MEDS: Atorvastatin Calcium 80 MG TABLET PO (20:24)
[2021-09-21] MEDS: Ezetimibe 10 MG TABLET PO (20:25)
[2021-09-22] VITALS (7 sets, daily range): BP systolic 140–158; BP diastolic 65–83; PULSE 40–107; RESP 17–20; TEMP 36.1–37.2; O2SAT 92–96
[2021-09-22] MEDS: LORazepam 0.5 MG TABLET PO (04:04)
[2021-09-22] MEDS: Omeprazole 20 MG CAPSULE.DR PO ×2 (06:29→15:39)
[2021-09-22 07:44] LABS: Glucose, Whole Blood 189 mg/dL (60-115)
[2021-09-22] MEDS: Magnesium Oxide 400 MG TABLET PO ×3 (07:59→19:56)
[2021-09-22] MEDS: Apixaban 5 MG TABLET PO ×2 (07:59→19:56)
[2021-09-22] MEDS: Tamsulosin HCL 0.4 MG CAPSULE PO (07:59)
[2021-09-22] MEDS: 0.9 % Sodium Chloride Flush 3 ML SYRINGE IVFLUSH ×2 (08:00→15:53)
[2021-09-22] MEDS: Insulin Lispro 100 UNIT/ML 3 ML VIAL SUBCUT ×4 (08:00→20:05)
--- NOTE | 2021-09-22 11:17 | HO.PM.IMPN ---
Subjective Subjective Date of Service: 09/22/21 Interval History: strep bacteremia , foot ulcer Review of Systems Denies any chest pain shortness breath or abdominal pain or fever or chills or cough or phlegm. Physical Exam Vital Signs: Vital Signs: Last Vital Signs Temp 98.0 F 09/22/21 07:30 Pulse 60 09/22/21 07:30 Resp 18 09/22/21 07:30 BP 157/77 H 09/22/21 07:30 Pulse Ox 93 09/22/21 07:30 BMI result Body Mass Index 30.8 ?general: not in acute distress heent: has central line ij rght side. seems fine , clean area cvs: [id number] res: clear to auscultation b/l abd: soft, nd,nt, bs present ext: pulses present , no cyanosis , foot ulcer seems clean ,mild seruos discharge neuro: axo3 , non focal Objective Data Active Medications Apixaban (Apixaban 5 Mg Tablet) 5 mg PO BID [facility] Last Admin: 09/22/21 07:59 Dose: 5 mg Documented by: JESSIE Atorvastatin Calcium (Atorvastatin Calcium 80 Mg Tablet) 80 mg PO BEDTIME [facility] Last Admin: 09/21/21 20:24 Dose: 80 mg Documented by: EDDI Dextrose (Dextrose 50 % 25 Gm/50 Ml Vial) 25 gm IVPUSH Q15M PRN; Protocol PRN Reason: per Hypoglycemia Standing Ord. Ezetimibe (Ezetimibe 10 Mg Tablet) 10 mg PO BEDTIME [facility] Last Admin: 09/21/21 20:25 Dose: 10 mg Documented by: EDDI Glucose (Glucose Gel 15 Gm Gel..Gram.) 15 gm PO Q15M PRN; Protocol PRN Reason: per Hypoglycemia Standing Ord. Ceftriaxone Sodium 2 gm/ (Sodium Chloride) 50 mls @ 100 mls/hr IV Q24H [facility] Last Infusion: 09/21/21 12:19 Dose: 0 mls/hr Documented by: JESSIE Insulin Human Lispro (Insulin Lispro 100 Unit/Ml 3 Ml Vial) 0 unit SUBCUT QIDACHS [facility]; Protocol Last Admin: 09/22/21 08:00 Dose: 2 unit Documented by: JESSIE Levothyroxine Sodium (Levothyroxine Sodium 50 Mcg Tablet) 50 mcg PO Q2D@0630 [facility] Last Admin: 09/21/21 05:51 Dose: 50 mcg Documented by: KING Lorazepam (Lorazepam 0.5 Mg Tablet) 0.5 mg PO Q8H PRN PRN Reason: Anxiety Last Admin: 09/22/21 04:04 Dose: 0.5 mg Documented by: EDDI Magnesium Oxide (Magnesium Oxide 400 Mg Tablet) 400 mg PO TID [facility] Last Admin: 09/22/21 07:59 Dose: 400 mg Documented by: JESSIE Melatonin (Melatonin 3 Mg Tablet) 6 mg PO BEDTIME PRN PRN Reason: Sleep Last Admin: 09/18/21 23:43 Dose: 6 mg Documented by: BINH Omeprazole (Omeprazole 20 Mg Capsule.) 20 mg PO BID@0630,1630 [facility] Last Admin: 09/22/21 06:29 Dose: 20 mg Documented by: EDDI Pharmacy Consult (Consult Rx Perform Med Rec) 1 each MISCELLANE ONCE PRN PRN Reason: Consult order Senna (Sennosides 8.6 Mg Tablet) 17.2 mg PO BEDTIME PRN PRN Reason: Constipation Sodium Chloride (0.9 % Sodium Chloride Flush 3 Ml Syringe) 3 ml IVFLUSH QSHIFT [facility] Last Admin: 09/22/21 08:00 Dose: 3 ml Documented by: JESSIE Tamsulosin HCl (Tamsulosin Hcl 0.4 Mg Capsule) 0.4 mg PO DAILY [facility] Last Admin: 09/22/21 07:59 Dose: 0.4 mg Documented by: JESSIE Labs CBC & Chem 7: 09/20/21 05:30 09/20/21 05:30 Labs: Laboratory Results - last 24 hr 09/21/21 09/21/21 09/22/21 15:29 20:13 07:33 POC Glucose 217 H 262 H 189 H Microbiology Microbiology Results: Microbiology 09/16/21 10:06 Blood Culture - Final Blood - Venous No growth after 5 days. 09/16/21 10:02 Blood Culture - Final Blood - Venous No growth after 5 days. Assessment and Plan (1) Diabetic foot ulcer: Status: Acute (2) Streptococcal bacteremia: Status: Acute Assessment and Plan: 71-year-old male with a past medical history of hypertension, hyperlipidemia, diabetes, CAD status post CABG, 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 severe sepsis/bacteremia went to icu -needed for pressor support and antibiotics still on iv ceftriaxone 2 gm q24 as per cardio/echo:Transthoracic Echocardiography has not shown any obvious vegetation. intial blood culture strep group c , repeated blood cultures neg@48hrs. Id eval Mri foot , may need [facility] antibiotics 2. afib: ?Underlying AFib on anticoagulation with intermittent bradycardia, may require ppm placement no on any rate control medication currently.? continue eliquis, 3. thombocytopenia : thought to be related to sepsis , improving 4.dm foot ulcer/strep bacteremia : on ceftroaxone added ID eval 5. dm:fs 140-200 fs with coverage Hba1c levels 6. HLP: added atorvastatin dvt prophylax:eliquis Quality Stroke Does the patient have a stroke diagnosis?: No VTE Prior VTE?: No VTE Risk Level:: Medical - moderate - high VTE Device Contraindication: Treatment Not Indicated VTE Drug Contraindication: N/A - Med Ordered
[2021-09-22 11:31] LABS: Glucose, Whole Blood 227 mg/dL (60-115)
[2021-09-22] MEDS: cefTRIAXone sodium 2 GM in 0.9 % Sodium Chloride 50 ML IV (12:08)
[2021-09-22 16:11] LABS: Glucose, Whole Blood 175 mg/dL (60-115)
[2021-09-22 19:56] LABS: Glucose, Whole Blood 219 mg/dL (60-115)
[2021-09-22] MEDS: Metoprolol Tartrate 25 MG TABLET PO (19:56)
[2021-09-22] MEDS: Atorvastatin Calcium 80 MG TABLET PO (19:57)
[2021-09-22] MEDS: Ezetimibe 10 MG TABLET PO (19:57)
[2021-09-22] MEDS: Zolpidem Tartrate 5 MG TABLET PO (19:57)
[2021-09-23] MEDS: 0.9 % Sodium Chloride Flush 3 ML SYRINGE IVFLUSH ×4 (00:27→21:56)
[2021-09-23 03:42] VITALS: BP 138/63; PULSE 54; RESP 18; TEMP 36.7; O2SAT 92
[2021-09-23] MEDS: Levothyroxine Sodium 50 MCG TABLET PO (06:10)
[2021-09-23] MEDS: Omeprazole 20 MG CAPSULE.DR PO ×2 (06:10→16:50)
[2021-09-23 07:17] LABS: Glucose, Whole Blood 175 mg/dL (60-115)
[2021-09-23 08:00] VITALS: BP 167/70; PULSE 60; RESP 18; TEMP 36.4; O2SAT 96
[2021-09-23] MEDS: Insulin Lispro 100 UNIT/ML 3 ML VIAL SUBCUT ×4 (08:11→21:56)
[2021-09-23] MEDS: Apixaban 5 MG TABLET PO ×2 (08:13→21:55)
[2021-09-23] MEDS: Magnesium Oxide 400 MG TABLET PO ×3 (08:13→21:55)
[2021-09-23] MEDS: Metoprolol Tartrate 25 MG TABLET PO ×2 (08:13→21:55)
[2021-09-23] MEDS: Tamsulosin HCL 0.4 MG CAPSULE PO (08:13)
[2021-09-23] MEDS: cefTRIAXone sodium 2 GM in 0.9 % Sodium Chloride 50 ML IV (09:17)
--- NOTE | 2021-09-23 10:45 | PC.NURSE ---
1035 TLC removed without diff. Tip intact. xeroform ,DSD and tegaderm intact. on right neck.
--- NOTE | 2021-09-23 10:56 | P.PNIM_ITS ---
Subjective Subjective Date of Service: 09/23/21 Interval History: strep bacteremia Review of Systems Denies any chest pain shortness breath or abdominal pain or fever or chills or cough or phle Physical Exam Vital Signs: Vital Signs: Last Vital Signs Temp 97.6 F 09/23/21 08:00 Pulse 60 09/23/21 08:00 Resp 18 09/23/21 08:00 BP 167/70 H 09/23/21 08:00 Pulse Ox 96 09/23/21 08:00 BMI result Body Mass Index 30.8 general: not in acute distress heent: has central line ij rght side. seems fine , clean area cvs: [id number] res: clear to auscultation b/l abd: soft, nd,nt, bs present ext: pulses present , no cyanosis , foot ulcer seems clean , no discharge neuro: axo3 , non focal Objective Data Active Medications Apixaban (Apixaban 5 Mg Tablet) 5 mg PO BID [facility] Last Admin: 09/23/21 08:13 Dose: 5 mg Documented by: DANY Atorvastatin Calcium (Atorvastatin Calcium 80 Mg Tablet) 80 mg PO BEDTIME [facility] Last Admin: 09/22/21 19:57 Dose: 80 mg Documented by: SHEFALI Dextrose (Dextrose 50 % 25 Gm/50 Ml Vial) 25 gm IVPUSH Q15M PRN; Protocol PRN Reason: per Hypoglycemia Standing Ord. Ezetimibe (Ezetimibe 10 Mg Tablet) 10 mg PO BEDTIME [facility] Last Admin: 09/22/21 19:57 Dose: 10 mg Documented by: SHEFALI Glucose (Glucose Gel 15 Gm Gel..Gram.) 15 gm PO Q15M PRN; Protocol PRN Reason: per Hypoglycemia Standing Ord. Ceftriaxone Sodium 2 gm/ (Sodium Chloride) 50 mls @ 100 mls/hr IV Q24H [facility] Last Infusion: 09/23/21 10:00 Dose: 0 mls/hr Documented by: DANY Insulin Human Lispro (Insulin Lispro 100 Unit/Ml 3 Ml Vial) 0 unit SUBCUT QIDACHS [facility]; Protocol Last Admin: 09/23/21 08:11 Dose: 2 unit Documented by: DANY Levothyroxine Sodium (Levothyroxine Sodium 50 Mcg Tablet) 50 mcg PO Q2D@0630 [facility] Last Admin: 09/23/21 06:10 Dose: 50 mcg Documented by: SMILEY Lorazepam (Lorazepam 0.5 Mg Tablet) 0.5 mg PO Q8H PRN PRN Reason: Anxiety Last Admin: 09/22/21 04:04 Dose: 0.5 mg Documented by: EDDI Magnesium Oxide (Magnesium Oxide 400 Mg Tablet) 400 mg PO TID [facility] Last Admin: 09/23/21 08:13 Dose: 400 mg Documented by: DANY Melatonin (Melatonin 3 Mg Tablet) 6 mg PO BEDTIME PRN PRN Reason: Sleep Last Admin: 09/18/21 23:43 Dose: 6 mg Documented by: BINH Metoprolol Tartrate (Metoprolol Tartrate 25 Mg Tablet) 25 mg PO BID [facility]; Protocol Last Admin: 09/23/21 08:13 Dose: 25 mg Documented by: DANY Omeprazole (Omeprazole 20 Mg Capsule.Dr) 20 mg PO BID@0630,1630 [facility] Last Admin: 09/23/21 06:10 Dose: 20 mg Documented by: SMILEY Pharmacy Consult (Consult Rx Perform Med Rec) 1 each MISCELLANE ONCE PRN PRN Reason: Consult order Senna (Sennosides 8.6 Mg Tablet) 17.2 mg PO BEDTIME PRN PRN Reason: Constipation Sodium Chloride (0.9 % Sodium Chloride Flush 3 Ml Syringe) 3 ml IVFLUSH QSHIFT [facility] Last Admin: 09/23/21 08:12 Dose: 3 ml Documented by: DANY Tamsulosin HCl (Tamsulosin Hcl 0.4 Mg Capsule) 0.4 mg PO DAILY [facility] Last Admin: 09/23/21 08:13 Dose: 0.4 mg Documented by: DANY Zolpidem Tartrate (Zolpidem Tartrate 5 Mg Tablet) 5 mg PO BEDTIME [facility] Last Admin: 09/22/21 19:57 Dose: 5 mg Documented by: SHEFALI Labs CBC & Chem 7: 09/20/21 05:30 09/20/21 05:30 Labs: Laboratory Results - last 24 hr 09/22/21 09/22/21 09/22/21 11:19 16:07 19:52 POC Glucose 227 H 175 H 219 H 09/23/21 07:14 POC Glucose 175 H Assessment and Plan (1) Diabetic foot ulcer: Status: Acute (2) Streptococcal bacteremia: Status: Acute Assessment and Plan: 71-year-old male with a past medical history of hypertension, hyperlipidemia, diabetes, CAD status post CABG, 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 severe sepsis/bacteremia went to icu -needed for pressor support and antibiotics still on iv ceftriaxone 2 gm q24 as per cardio/echo:Transthoracic Echocardiography has not shown any obvious vegetation. intial blood culture strep group c , repeated blood cultures neg@48hrs. Id eval -Mri foot , may need senior care antibiotics possible 6 weeks as per iD. 2. afib: ?Underlying AFib on anticoagulation with intermittent bradycardia, may require ppm placement no on any rate control medication currently.? continue eliquis, 3. thombocytopenia : thought to be related to sepsis , improving 4.dm foot ulcer/strep bacteremia : on ceftroaxone added ID eval 5. dm:fs 170-200 fs with coverage Hba1c levels 6. HLP: added atorvastatin dvt prophylax:eliquis Quality Stroke Does the patient have a stroke diagnosis?: No VTE Prior VTE?: No VTE Risk Level:: Medical - moderate - high VTE Device Contraindication: Treatment Not Indicated VTE Drug Contraindication: N/A - Med Ordered
[2021-09-23 10:58] VITALS: BP 146/66; PULSE 65; RESP 18; TEMP 36.7; O2SAT 94
[2021-09-23 11:00] LABS: Glucose, Whole Blood 221 mg/dL (60-115)
[2021-09-23 15:19] VITALS: BP 175/75; PULSE 59; RESP 16; TEMP 36.5; O2SAT 98
[2021-09-23 16:34] LABS: Glucose, Whole Blood 211 mg/dL (60-115)
[2021-09-23 19:50] VITALS: BP 140/66; PULSE 74; RESP 18; TEMP 36.4; O2SAT 94
[2021-09-23 20:25] LABS: Glucose, Whole Blood 197 mg/dL (60-115)
[2021-09-23] MEDS: Atorvastatin Calcium 80 MG TABLET PO (21:55)
[2021-09-23] MEDS: Ezetimibe 10 MG TABLET PO (21:55)
[2021-09-23] MEDS: Zolpidem Tartrate 5 MG TABLET PO (21:55)
[2021-09-23 23:36] VITALS: BP 131/65; PULSE 56; RESP 18; TEMP 36.8; O2SAT 96
[2021-09-24] VITALS (7 sets, daily range): BP systolic 127–179; BP diastolic 64–84; PULSE 50–80; RESP 18–20; TEMP 36.3–37; O2SAT 95–100
[2021-09-24] MEDS: Omeprazole 20 MG CAPSULE.DR PO ×2 (05:47→16:59)
[2021-09-24 06:40] LABS: Hematocrit 30.6 % (42.0-52.0); Hemoglobin 9.5 g/dl (14.0-18.0); Mean Corpuscular Hemoglobin 26.9 pg (27.0-33.0); Mean Corpuscular Volume 86.7 fL (80.0-98.0); Mean Platelet Volume 11.4 fL (9.4-12.4); Platelet Count 179 X10*3/uL (160-400); Red Blood Count 3.53 X10*6/uL (4.60-5.80); Red Cell Distribution Width 19.1 % (11.0-16.0); White Blood Count 7.7 X10*3/uL (4.8-10.8)
[2021-09-24 06:49] LABS: Anion Gap 12 (12-20); Blood Urea Nitrogen 25 mg/dL (9-16); Calcium 8.8 mg/dL (8.4-10.2); Carbon Dioxide 26 mmol/L (22-29); Chloride 103 mmol/L (96-108); Creatinine Clr Calc Pharmacy 60.1; Estimated Glomerular Filt Rate 55; Glucose Random 177 mg/dL (60-115); Potassium 4.3 mmol/L (3.3-5.1); Sodium 137 mmol/L (135-145)
[2021-09-24 07:23] LABS: Glucose, Whole Blood 185 mg/dL (60-115)
[2021-09-24] MEDS: Tamsulosin HCL 0.4 MG CAPSULE PO (07:34)
[2021-09-24] MEDS: Insulin Lispro 100 UNIT/ML 3 ML VIAL SUBCUT ×3 (07:34→21:23)
[2021-09-24] MEDS: Metoprolol Tartrate 25 MG TABLET PO (07:34)
[2021-09-24] MEDS: Magnesium Oxide 400 MG TABLET PO ×3 (07:35→21:23)
[2021-09-24] MEDS: Apixaban 5 MG TABLET PO ×2 (07:35→21:23)
[2021-09-24] MEDS: 0.9 % Sodium Chloride Flush 3 ML SYRINGE IVFLUSH ×3 (07:36→21:24)
[2021-09-24] MEDS: cefTRIAXone sodium 2 GM in 0.9 % Sodium Chloride 50 ML IV (10:58)
[2021-09-24 11:12] LABS: Glucose, Whole Blood 278 mg/dL (60-115)
--- NOTE | 2021-09-24 11:31 | HO.PM.IMPN ---
Subjective Subjective Date of Service: 09/24/21 Interval History: F/u on bacteremia--MRI of foot no osteo Review of Systems no fever, no foot pain Physical Exam Vital Signs: Vital Signs: Last Vital Signs Temp 97.3 F 09/24/21 10:59 Pulse 58 09/24/21 10:59 Resp 18 09/24/21 10:59 BP 139/65 09/24/21 10:59 Pulse Ox 97 09/24/21 10:59 BMI result Body Mass Index 30.8 Const: Other: General: AO X 3, no acute distress Resp: CTA bilateral CVS: S1,S2,RRR GI: +BS, NT, no distention Skin: No rash Neuro: motor grossly intact Psych: appropriate affect Objective Data Active Medications Apixaban (Apixaban 5 Mg Tablet) 5 mg PO BID [facility] Last Admin: 09/24/21 07:35 Dose: 5 mg Documented by: COLIN Atorvastatin Calcium (Atorvastatin Calcium 80 Mg Tablet) 80 mg PO BEDTIME [facility] Last Admin: 09/23/21 21:55 Dose: 80 mg Documented by: SMILEY Dextrose (Dextrose 50 % 25 Gm/50 Ml Vial) 25 gm IVPUSH Q15M PRN; Protocol PRN Reason: per Hypoglycemia Standing Ord. Ezetimibe (Ezetimibe 10 Mg Tablet) 10 mg PO BEDTIME [facility] Last Admin: 09/23/21 21:55 Dose: 10 mg Documented by: SMILEY Glucose (Glucose Gel 15 Gm Gel..Gram.) 15 gm PO Q15M PRN; Protocol PRN Reason: per Hypoglycemia Standing Ord. Ceftriaxone Sodium 2 gm/ (Sodium Chloride) 50 mls @ 100 mls/hr IV Q24H [facility] Last Admin: 09/24/21 10:58 Dose: 100 mls/hr Documented by: COLIN Insulin Human Lispro (Insulin Lispro 100 Unit/Ml 3 Ml Vial) 0 unit SUBCUT QIDACHS [facility]; Protocol Last Admin: 09/24/21 07:34 Dose: 2 unit Documented by: COLIN Levothyroxine Sodium (Levothyroxine Sodium 50 Mcg Tablet) 50 mcg PO Q2D@0630 [facility] Last Admin: 09/23/21 06:10 Dose: 50 mcg Documented by: SMILEY Lorazepam (Lorazepam 0.5 Mg Tablet) 0.5 mg PO Q8H PRN PRN Reason: Anxiety Last Admin: 09/22/21 04:04 Dose: 0.5 mg Documented by: EDDI Magnesium Oxide (Magnesium Oxide 400 Mg Tablet) 400 mg PO TID [facility] Last Admin: 09/24/21 07:35 Dose: 400 mg Documented by: COLIN Melatonin (Melatonin 3 Mg Tablet) 6 mg PO BEDTIME PRN PRN Reason: Sleep Last Admin: 09/18/21 23:43 Dose: 6 mg Documented by: BINH Metoprolol Tartrate (Metoprolol Tartrate 25 Mg Tablet) 25 mg PO BID [facility]; Protocol Last Admin: 09/24/21 07:34 Dose: 25 mg Documented by: COLIN Omeprazole (Omeprazole 20 Mg Capsule.) 20 mg PO BID@0630,1630 [facility] Last Admin: 09/24/21 05:47 Dose: 20 mg Documented by: SMILEY Pharmacy Consult (Consult Rx Perform Med Rec) 1 each MISCELLANE ONCE PRN PRN Reason: Consult order Senna (Sennosides 8.6 Mg Tablet) 17.2 mg PO BEDTIME PRN PRN Reason: Constipation Sodium Chloride (0.9 % Sodium Chloride Flush 3 Ml Syringe) 3 ml IVFLUSH QSHIFT [facility] Last Admin: 09/24/21 07:36 Dose: 3 ml Documented by: COLIN Tamsulosin HCl (Tamsulosin Hcl 0.4 Mg Capsule) 0.4 mg PO DAILY [facility] Last Admin: 09/24/21 07:34 Dose: 0.4 mg Documented by: COLIN Zolpidem Tartrate (Zolpidem Tartrate 5 Mg Tablet) 5 mg PO BEDTIME [facility] Last Admin: 09/23/21 21:55 Dose: 5 mg Documented by: SMILEY Labs CBC & Chem 7: 09/24/21 06:06 09/24/21 06:07 Labs: Laboratory Results - last 24 hr 09/23/21 09/23/21 09/24/21 16:26 20:20 06:06 MCV 86.7 MCH 26.9 L MCHC 31.0 RDW 19.1 H Plt Count 179 D MPV 11.4 Absolute Nucleated RBC 0.000 Nucleated RBC % (auto) 0.0 Anion Gap Estim Creat Clear Calc Estimated GFR POC Glucose 211 H 197 H Random Glucose Calcium 09/24/21 09/24/21 09/24/21 06:07 07:09 11:02 MCV MCH MCHC RDW Plt Count MPV Absolute Nucleated RBC Nucleated RBC % (auto) Anion Gap 12 Estim Creat Clear Calc 60.1 Estimated GFR 55 POC Glucose 185 H 278 H Random Glucose 177 H Calcium 8.8 D Assessment and Plan (1) Diabetic foot ulcer: Status: Acute (2) Streptococcal bacteremia: Status: Acute Assessment and Plan: 71-year-old male with a past medical history of hypertension, hyperlipidemia, diabetes, CAD status post CABG, 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 severe sepsis/bacteremia with group C strep, required sepsis, repeat culture negative, ID recommends 6 weeks of IV. Echo no vegetations. MRI of foot no osteo 2. AFIB ?Underlying AFib on anticoagulation with intermittent bradycardia, may require ppm placement no on any rate control medication currently.? continue eliquis, 3. thombocytopenia : thought to be related to sepsis , improving 4.dm foot ulcer/strep bacteremia : on ceftroaxone added ID eval 5. dm:fs 170-200 fs with coverage Hba1c levels 6. HLP: added atorvastatin dvt prophylax:eliquis Quality Stroke Does the patient have a stroke diagnosis?: No VTE Prior VTE?: No VTE Risk Level:: Medical - moderate - high VTE Device Contraindication: Treatment Not Indicated VTE Drug Contraindication: N/A - Med Ordered
--- NOTE | 2021-09-24 13:09 | P.CDIC_ITS ---
CDI Concurrent Query Documentation Clarification: PHYSICIAN'S DOCUMENTATION REQUEST Date of Query: 09/24/21 1301 Patient Name: Dom Sood Admit Date: 09/15/21 Dear Doctor, A review of the medical record indicates additional documentation may be needed. Please review below and update the documentation accordingly. Risk Factors/Clinical Indicators/Treatments HUGO on chronic kidney disease. Patients baseline is 1.3-1.4 Cr. 1.44/1.62 GFR 42 >60 55 Monitor renal indices and urine output. Please clarify which of the following accurately represents the patient's renal status: Specifics: * Acute renal failure on Chronic Kidney Disease (CKD) Stage 1-5 or other * Other (please specify) * Unable to determine Stages of Chronic Kidney Disease* 1. Increase in serum creatinine by ? 0.3 mg/dL Level Description GFR (?26.5 micromol/L) within 48 hours, or G1 Normal or High > 90 2. Increase in serum creatinine to ?1.5 times baseline, G2 Mildly decreased 60 ? 89 which is known or presumed to have occurred within 7 days, or G3a Mildly to moderately decreased 45 ? 59 3. Urine volume <0.5 mL/kg/hour for six hours G3b Moderately to severely decreased 30 - 44 G4 Severely decreased 15 ? 29 G5 Kidney failure < 15 *Source: Kidney Disease: Improving Global Outcomes (KDIGO) 2012 Use of terms such as suspected, likely, concern for, or probable (associated with a specific diagnosis that is being evaluated, monitored, or treated as if it exists) are acceptable and can be coded in the inpatient setting, when documented at the time of discharge. Thank you, Rosa Maria Becker [facility], CDIS Extension: [phone] Please use your independent medical judgment in providing your response. THIS QUERY IS PART OF THE PERMANENT MEDICAL RECORD Provider Response: Other Other Diagnosis: HUGO on CKD2
--- NOTE | 2021-09-24 16:45 | P.PICC_ITS ---
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 Following completion of [place] Protocol the skin and soft tissues were anesthetized with 1% Lidocaine plain. Using ultrasound guidance, BASILIC vein access was obtained IN SINGLE ATTEMPT BY THIS RN. Over an 0.018 wire through peel-away sheath, a DOUBLE LUMEN, PASV, 5-IRANIAN PICC line was positioned. Catheter length is 43 CM internal length, 1 CM external length, for a total trimmed length of 44 CM. The procedure was performed in [facility]. UNDERLYING AFIB, UNABLE TO PERFORM BEDSIDE TIP VERIFICATION BY SITE NEW [place]; CXR ORDERED PER POLICY FOR TIP VERIFICATION. Ultrasound was used to document vein patency and for needle entry. A formal ultrasound picture was recorded. Vascular Public Works Manager has NOT released the line for use and it is currently dressed with a StatLock, Tegaderm, and CHG disc. Verification has been performed for blood return and line patency. PENDING CXR TIP VERIFICATION FOR LINE USE. Arm Circumference: 29 CM Equipment: [employer] POWERPICC SOLO Catheter Type: 5-IRANIAN, DOUBLE LUMEN, PASV Lot #: [id number]
[2021-09-24 19:47] LABS: Glucose, Whole Blood 183 mg/dL (60-115)
[2021-09-24 19:47] LABS: Glucose, Whole Blood 222 mg/dL (60-115)
[2021-09-24 21:20] LABS: Glucose, Whole Blood 183 mg/dL (60-115)
[2021-09-24] MEDS: Zolpidem Tartrate 5 MG TABLET PO (21:23)
[2021-09-24] MEDS: Atorvastatin Calcium 80 MG TABLET PO (21:23)
[2021-09-24] MEDS: Ezetimibe 10 MG TABLET PO (21:23)
[2021-09-25 04:00] VITALS: BP 132/62; PULSE 79; RESP 20; TEMP 37; O2SAT 93
[2021-09-25] MEDS: Omeprazole 20 MG CAPSULE.DR PO (06:06)
[2021-09-25] MEDS: Levothyroxine Sodium 50 MCG TABLET PO (06:06)
[2021-09-25 07:14] LABS: Glucose, Whole Blood 140 mg/dL (60-115)
[2021-09-25 07:25] VITALS: BP 153/68; PULSE 74; RESP 20; TEMP 36.6; O2SAT 95
[2021-09-25] MEDS: cefTRIAXone sodium 2 GM in 0.9 % Sodium Chloride 50 ML IV (09:52)
[2021-09-25] MEDS: Tamsulosin HCL 0.4 MG CAPSULE PO (09:52)
[2021-09-25] MEDS: Magnesium Oxide 400 MG TABLET PO (09:52)
[2021-09-25] MEDS: Apixaban 5 MG TABLET PO (09:52)
[2021-09-25] MEDS: Metoprolol Tartrate 25 MG TABLET PO (09:52)
[2021-09-25] MEDS: 0.9 % Sodium Chloride Flush 3 ML SYRINGE IVFLUSH (09:52)
[2021-09-25 11:06] VITALS: BP 139/62; PULSE 51; RESP 20; TEMP 36.3; O2SAT 97
[2021-09-25 11:16] LABS: Glucose, Whole Blood 156 mg/dL (60-115)
--- NOTE | 2021-09-25 11:17 | P.DS_ITS ---
DS: Providers Provider Date of Service: 09/25/21 Date of admission: 09/15/21 19:28 Primary care physician: Nicolás Rai MD Consults: 09/15/21 19:26 Consult to Infectious Diseases Routine Consulting Provider: Tequila Kang Reason for consultation: DM foot ulcer; fever 09/16/21 00:17 Consult to Cardiology Routine Consulting Provider: Cody Grewal Reason for consultation: high troponins 09/19/21 15:47 Consult to Infectious Diseases Routine Consulting Provider: Tequila Kang Reason for consultation: strep bacteremia Has provider been notified: No DS: Diagnosis Discharge Diagnosis (1) Diabetic foot ulcer: (2) Streptococcal bacteremia: Status: Resolved DS: Summary Hospital Course Hospital Course: Chief Complaint: fever 71-year-old male with a past medical history of hypertension, hyperlipidemia, diabetes, CAD status post CABG, history of aortic valve endocarditis status post AVR with bioprosthetic wall, chronic kidney disease, atrial fibrillation on Eliquis, diabetic foot ulcer presented to the hospital today with a chief complaint of generalized weakness for the past 3 days.? Patient mentioned that about couple days ago we had a fall on the ice-slipped a nd fell over, denies any head strike or loss of consciousness.? Mentions that he landed on his hips; denies any numbness tingling or focal weakness.? Denies any back pain.? Denies any neck pain.? Mentioned that he has been having generalized weakness and subject to chills; denies any burning or frequency with urination.? Denies any chest pain or palpitations.? Denies any cough or sputum. Mentions he has chronic ulcer on his left foot.? Review of all other systems is negative except mentioned above ER course: Per ER team patient was slightly drowsy on presentation; exam was essentially benign except for left foot ulcer; x-ray showed no acute findings; CT head and CT cervical spine showed no acute findings; patient had a fever of 101f; patient was given Tylenol and antibiotics; suspected infection from the left foot ulcer; admitted to the hospital for further management Hospital course: Essentially 71 male with CAD status post 3 vessel CABG, AVR for aortic valve endocarditis with bioprosthetic valve, CKD, AFib on anticoagulation, diabetic foot ulcer, and hypertension presented on 09/15/21 with weakness and malaise secondary and found to have severe sepsis, hypOtension that did not respond to IVF and streptococcal bacteremia and was subsequently transfered to the ICU and treated with broad-spectrum antibiotics and required vasopressor support? He had transthoracic 2D echocardiogram did not demonstrate any vegetation.? Patient has been evaluated by Cardiology service with no indication for TEEE. He had MRI of the foot that showed no evidence of osteomylitis. Final coulture grew Group C strep, initially ID saw him and thought he might need 6 weeks of IV Abx but has revised this 4 weeks, he has completed 7 days in hospial therefore needs 21 more doses ending on october 16. He has a PICC line in to return to the hospital daily for infusion as he is not able to pay 20 dollar daily co-pay at home. Patient aslo had HUGO on CKD 2 that has resolved. Sepsis has fully resolved. Repeat cultures have been negative. Time Spent with Patient Time attestation: Total time spent providing and/or coordinating discharge services: Discharge coordination time: Greater than 30 minutes Quality: Stroke Does the patient have a stroke diagnosis?: No Physical Exam Verdana 4l Vital Signs: Verdana 4d Verdana 4d Vital Signs: Verdana 4d Verdana 4Bd Last Vital Signs Verdana 4d Cycle Specialist New 4d Cycle Specialist New 4d Temp 97.4 F 09/25/21 11:06 Cycle Specialist New 4d Pulse 51 09/25/21 11:06 Cycle Specialist New 4d Resp 20 09/25/21 11:06 BP 139/62 09/25/21 11:06 Pulse Ox 97 09/25/21 11:06 BMI result Body Mass Index 30.8 DS: Data Data Completed and Pending Labs on day of discharge: Laboratory Results - last 24 hr 09/24/21 09/24/21 09/24/21 17:15 19:37 21:16 POC Glucose 183 H 222 H 183 H 09/25/21 09/25/21 07:00 11:05 POC Glucose 140 H 156 H Discharge Plan Discharge Anticipated Discharge Date/Time: 09/25/21 11:10 Patient Disposition: Home, Self-Care Discharge Diagnosis: Sepsis, Referrals: Nicolás Rai MD [Primary Care Provider] - 1 Week [facility] [Physician] - 1 Week (Daily IV ABX infusion @ [facility] Short stay, 2nd floor.) Discharge Medications: New ceftriaxone 2 gram recon soln 2 g IV DAILY Qty: 21 0RF Continued insulin lispro [Humalog KwikPen Insulin] 100 unit/mL insulin pen See Protocol sliding scale dose subcut QIDACHS 0RF Protocol: Insulin Correction Scale Less than or equal to 110 ---- Give (units): 0 111 to 150 Give (units): 0 151 to 200 Give (units): 2 201 to 250 Give (units): 4 251 to 300 Give (units): 6 301 to 350 Give (units): 8 Greater than 350 Give (units): 10 Call MD if Blood Glucose > : 350 tamsulosin [Flomax] 0.4 mg capsule 0.4 mg PO DAILY 0RF metoprolol tartrate 25 mg tablet 25 mg PO BID Qty: 180 4RF Eliquis 5 mg tablet 5 mg PO BID Qty: 60 3RF ezetimibe [Zetia] 10 mg tablet 10 mg PO BEDTIME 0RF lisinopril 10 mg tablet 10 mg PO DAILY Qty: 30 5RF atorvastatin 80 mg tablet 80 mg PO DAILY 0RF levothyroxine 50 mcg tablet 50 mcg PO Q2D@0630 0RF magnesium oxide 400 mg (241.3 mg magnesium) tablet 400 mg PO TID 0RF insulin glargine 100 unit/mL (3 mL) insulin pen 22 unit subcut DAILY 0RF (DME) blood sugar diagnostic Strip See Rx Instructions ea Not Applicable QID Qty: 10 0RF Rx Instructions: As directed (DME) blood-glucose meter Kit See Rx Instructions ea .ROUTE QID Qty: 1 0RF Rx Instructions: As directed (DME) pen needle, diabetic 32 gauge x 5/32 needle See Rx Instructions ea .ROUTE .MEDSUPPLY Qty: 50 0RF Rx Instructions: As directed omeprazole 20 mg capsule,delayed release(DR/EC) 20 mg PO BID@0630,1630 0RF Discharge Orders: Discharge Order (Routine); Ordered 09/25/21 Ordered By: Vargas Saleem Diet: advance to usual diet Activity on Discharge: As tolerated Stand Alone Forms: Patient Portal Discharge page Care Plan Goals: Full recovery from sepsis Health Concerns: sepsis, foot ulcer Plan of Treatment: To complete 4 weeks course of Ceftriaxone, ending on October 16 Assessment: as above Discharge Date/Time: 09/25/21 02:00
--- NOTE | 2021-09-25 12:01 | MHC.CM.PN ---
IMM 09/25/21 Male DX Bacteremia. He is discharged home today. He will come daily to Short Stay for his infusion. All info required has been provided to Arturo LAWSON @ [facility]. The patient has arranged for private transportation home.
[2021-09-25] MEDS: Insulin Lispro 100 UNIT/ML 3 ML VIAL SUBCUT (12:23)
== END 2021-09-25 02:00 | disposition home or self-care (01) | DRG 871 ==
LOC: HO.ED 17:45 → HO.EDOVER 19:33 → HO.ICU 09-16 07:05 → HO.IMC 09-21 03:58
PROVIDERS: Internal Medicine; Internal Medicine Pulmonary Disease; Nurse Practitioner Family; Physician Assistant; Registered Nurse Community Health; Admitting Provider Hospitalist; Emergency Provider Emergency Medicine; PCP Internal Medicine; Visit Provider Internal Medicine
DX: A40.8 Other streptococcal sepsis (principal); R65.21 Severe sepsis with septic shock; L97.421 Non-pressure chronic ulcer of left heel and midfoot limited to breakdown of skin; L03.116 Cellulitis of left lower limb; L03.115 Cellulitis of right lower limb; I48.19 Other persistent atrial fibrillation; E10.621 Type 1 diabetes mellitus with foot ulcer; E83.42 Hypomagnesemia; E03.9 Hypothyroidism, unspecified; I12.9 Hypertensive chronic kidney disease with stage 1 through stage 4 chronic kidney disease, or unspecified chronic kidney disease; E10.22 Type 1 diabetes mellitus with diabetic chronic kidney disease; D69.6 Thrombocytopenia, unspecified; N18.2 Chronic kidney disease, stage 2 (mild); E78.5 Hyperlipidemia, unspecified; I25.10 Atherosclerotic heart disease of native coronary artery without angina pectoris; I95.9 Hypotension, unspecified; Z95.1 Presence of aortocoronary bypass graft; Z20.822 Contact with and (suspected) exposure to COVID-19; Z95.2 Presence of prosthetic heart valve; Z87.891 Personal history of nicotine dependence; Z79.4 Long term (current) use of insulin; Z79.01 Long term (current) use of anticoagulants; Z79.890 Hormone replacement therapy; Z79.899 Other long term (current) drug therapy
CPT/HCPCS: 0241U; 36415; 36573; 70450; 71045; 71250; 72125; 73620; 73720; 74176; 80048; 80076; 80202; 81001; 82040; 82550; 82803; 82947; 83605; 83735; 84100; 84443; 84484; 85007; 85025; 85027; 85610; 85652; 86140; 87040; 87077; 87147; 87186; 87205; 93005; 93306; 96365; 96366; 96367; 99285; A9585; C1751; J0696; J1265; J2543; J3370; J3475; P9047

== ENCOUNTER 2021-09-26 09:25 | Outpatient (REF) | payer MEDICARE, SELFPAY | END 2021-09-26 09:26 | disposition home or self-care (01) | LOC: HO.MDS 09:25 | PROVIDERS: PCP Internal Medicine; Visit Provider Internal Medicine | DX: Z45.2 Encounter for adjustment and management of vascular access device (principal); R78.81 Bacteremia | CPT/HCPCS: 96365; J0696 ==

== ENCOUNTER 2021-09-27 10:28 | Outpatient (REF) | payer MEDICARE, SELFPAY | END 2021-09-27 10:29 | disposition home or self-care (01) | LOC: HO.MDS 10:28 | PROVIDERS: PCP Internal Medicine; Visit Provider Internal Medicine | DX: R78.81 Bacteremia (principal); Z45.2 Encounter for adjustment and management of vascular access device | CPT/HCPCS: 96365; J0696 ==

== ENCOUNTER 2021-09-28 10:01 | Outpatient (REF) | payer MEDICARE, SELFPAY | END 2021-09-28 10:02 | disposition home or self-care (01) | LOC: HO.SSS 10:01 | PROVIDERS: Visit Provider Internal Medicine | DX: R78.81 Bacteremia (principal) | CPT/HCPCS: 96365; J0696 ==

== ENCOUNTER 2021-09-29 09:51 | Outpatient (REF) | payer MEDICARE, SELFPAY | END 2021-09-29 09:52 | disposition home or self-care (01) | LOC: HO.MDS 09:51 | PROVIDERS: Visit Provider Internal Medicine | DX: R78.81 Bacteremia (principal); Z45.2 Encounter for adjustment and management of vascular access device | CPT/HCPCS: 96365; J0696 ==

== ENCOUNTER 2021-09-30 09:46 | Outpatient (REF) | payer MEDICARE, SELFPAY | END 2021-09-30 09:47 | disposition home or self-care (01) | LOC: HO.MDS 09:46 | PROVIDERS: PCP Internal Medicine; Visit Provider Internal Medicine | DX: R78.81 Bacteremia (principal); Z45.2 Encounter for adjustment and management of vascular access device | CPT/HCPCS: 96365; J0696 ==

== ENCOUNTER 2021-10-01 09:41 | Outpatient (REF) | payer MEDICARE, SELFPAY | END 2021-10-01 09:42 | disposition home or self-care (01) | LOC: HO.MDS 09:41 | PROVIDERS: PCP Internal Medicine; Visit Provider Internal Medicine | DX: R78.81 Bacteremia (principal); Z45.2 Encounter for adjustment and management of vascular access device | CPT/HCPCS: 96365; J0696 ==

== ENCOUNTER 2021-10-02 09:54 | Outpatient (REF) | payer MEDICARE, SELFPAY | END 2021-10-02 09:55 | disposition home or self-care (01) | LOC: HO.MDS 09:54 | PROVIDERS: PCP Internal Medicine; Visit Provider Internal Medicine | DX: R78.81 Bacteremia (principal); Z45.2 Encounter for adjustment and management of vascular access device | CPT/HCPCS: 96365; J0696 ==

== ENCOUNTER 2021-10-03 09:32 | Outpatient (REF) | payer MEDICARE, SELFPAY | END 2021-10-03 09:33 | disposition home or self-care (01) | LOC: HO.MDS 09:32 | PROVIDERS: PCP Internal Medicine; Visit Provider Internal Medicine | DX: D75.82 Heparin induced thrombocytopenia (HIT) (principal); R78.81 Bacteremia; Z45.2 Encounter for adjustment and management of vascular access device | CPT/HCPCS: 96365; J0696 ==

== ENCOUNTER 2021-10-04 09:23 | Outpatient (REF) | payer MEDICARE, SELFPAY | END 2021-10-04 09:24 | disposition home or self-care (01) | LOC: HO.MDS 09:23 | PROVIDERS: PCP Internal Medicine; Visit Provider Internal Medicine | DX: D75.82 Heparin induced thrombocytopenia (HIT) (principal); R78.81 Bacteremia; Z45.2 Encounter for adjustment and management of vascular access device | CPT/HCPCS: 96365; J0696 ==

== ENCOUNTER 2021-10-05 09:42 | Outpatient (REF) | payer MEDICARE, SELFPAY | END 2021-10-05 09:43 | disposition home or self-care (01) | LOC: HO.MDS 09:42 | PROVIDERS: PCP Internal Medicine; Visit Provider Internal Medicine | DX: D75.82 Heparin induced thrombocytopenia (HIT) (principal); R78.81 Bacteremia; Z45.2 Encounter for adjustment and management of vascular access device | CPT/HCPCS: 96365; J0696 ==

== ENCOUNTER 2021-10-06 09:50 | Outpatient (REF) | payer MEDICARE, SELFPAY | END 2021-10-06 09:51 | disposition home or self-care (01) | LOC: HO.MDS 09:50 | PROVIDERS: PCP Internal Medicine; Visit Provider Internal Medicine | DX: D75.82 Heparin induced thrombocytopenia (HIT) (principal); R78.81 Bacteremia; Z45.2 Encounter for adjustment and management of vascular access device | CPT/HCPCS: 96365; J0696 ==

== ENCOUNTER 2021-10-07 09:52 | Outpatient (REF) | payer MEDICARE, SELFPAY | END 2021-10-07 09:53 | disposition home or self-care (01) | LOC: HO.MDS 09:52 | PROVIDERS: PCP Internal Medicine; Visit Provider Internal Medicine | DX: D75.82 Heparin induced thrombocytopenia (HIT) (principal); R78.81 Bacteremia; Z45.2 Encounter for adjustment and management of vascular access device | CPT/HCPCS: 96365; J0696 ==

== ENCOUNTER 2021-10-08 09:16 | Outpatient (REF) | payer MEDICARE, SELFPAY | END 2021-10-08 09:17 | disposition home or self-care (01) | LOC: HO.MDS 09:16 | PROVIDERS: PCP Internal Medicine; Visit Provider Internal Medicine | DX: D75.82 Heparin induced thrombocytopenia (HIT) (principal); R78.81 Bacteremia; Z45.2 Encounter for adjustment and management of vascular access device | CPT/HCPCS: 96365; J0696 ==

== ENCOUNTER 2021-10-09 09:39 | Outpatient (REF) | payer MEDICARE, SELFPAY | END 2021-10-09 09:40 | disposition home or self-care (01) | LOC: HO.MDS 09:39 | PROVIDERS: PCP Internal Medicine; Visit Provider Internal Medicine | DX: D75.82 Heparin induced thrombocytopenia (HIT) (principal); R78.81 Bacteremia; Z45.2 Encounter for adjustment and management of vascular access device | CPT/HCPCS: 96365; J0696 ==

== ENCOUNTER 2021-10-10 09:15 | Outpatient (REF) | payer MEDICARE, SELFPAY | END 2021-10-10 09:16 | disposition home or self-care (01) | LOC: HO.MDS 09:15 | PROVIDERS: PCP Internal Medicine; Visit Provider Internal Medicine | DX: D75.82 Heparin induced thrombocytopenia (HIT) (principal); R78.81 Bacteremia; Z45.2 Encounter for adjustment and management of vascular access device | CPT/HCPCS: 96365; J0690; J0696 ==

== ENCOUNTER 2021-10-11 07:00 | Outpatient (REF) | payer MEDICARE, SELFPAY | END 2021-10-11 07:01 | disposition home or self-care (01) | LOC: HO.MDS 07:00 | PROVIDERS: PCP Internal Medicine; Visit Provider Internal Medicine | DX: D75.82 Heparin induced thrombocytopenia (HIT) (principal); R78.81 Bacteremia; Z45.2 Encounter for adjustment and management of vascular access device | CPT/HCPCS: 96365; J0696 ==

== ENCOUNTER 2021-10-12 09:39 | Outpatient (REF) | payer MEDICARE, SELFPAY | END 2021-10-12 09:40 | disposition home or self-care (01) | LOC: HO.MDS 09:39 | PROVIDERS: PCP Internal Medicine; Visit Provider Internal Medicine | DX: D75.82 Heparin induced thrombocytopenia (HIT) (principal); R78.81 Bacteremia; Z45.2 Encounter for adjustment and management of vascular access device | CPT/HCPCS: 96365; J0690 ==

== ENCOUNTER 2021-10-13 09:47 | Outpatient (REF) | payer MEDICARE, SELFPAY | END 2021-10-13 09:48 | disposition home or self-care (01) | LOC: HO.MDS 09:47 | PROVIDERS: PCP Internal Medicine; Visit Provider Internal Medicine | DX: D75.82 Heparin induced thrombocytopenia (HIT) (principal); R78.81 Bacteremia; Z45.2 Encounter for adjustment and management of vascular access device | CPT/HCPCS: 96365; J0696 ==

== ENCOUNTER 2021-10-14 09:29 | Outpatient (REF) | payer MEDICARE, SELFPAY | END 2021-10-14 09:30 | disposition home or self-care (01) | LOC: HO.MDS 09:29 | PROVIDERS: PCP Internal Medicine; Visit Provider Internal Medicine | DX: D75.82 Heparin induced thrombocytopenia (HIT) (principal); R78.81 Bacteremia; Z45.2 Encounter for adjustment and management of vascular access device | CPT/HCPCS: 96365; J0696 ==

== ENCOUNTER 2021-10-15 09:51 | Outpatient (REF) | payer MEDICARE, SELFPAY | END 2021-10-15 09:52 | disposition home or self-care (01) | LOC: HO.MDS 09:51 | PROVIDERS: PCP Internal Medicine; Visit Provider Internal Medicine | DX: D75.82 Heparin induced thrombocytopenia (HIT) (principal); R78.81 Bacteremia; Z45.2 Encounter for adjustment and management of vascular access device | CPT/HCPCS: 96365; J0696 ==

== ENCOUNTER 2021-10-16 09:18 | Outpatient (REF) | payer MEDICARE, SELFPAY ==
--- NOTE | 2021-10-16 14:12 | HO.MIDLINE ---
PICC Line Insertion PICC Removal Diagnosis: [Diabetic Foot Ulcer REMOVAL OF PICC LINE DATE: 10/16/21 1. REASON FOR REMOVAL: NO LONGER NEEDS ANTIBX TREATMENT 2. INSERTED LENGTH: 44CM SINGLE LUMEN PICC LINE 3. REMOVED LENGTH: 44CM intact SINGLE LUMEN PICC LINE 4. A DRESSING (XERFORM/2X2 AND TEGARDERM) WAS PLACED OVER THE SITE UPON REMOVAL NO EDEMA OR BLEEDING AT SITE.
== END 2021-10-16 09:19 | disposition home or self-care (01) ==
LOC: HO.MDS 09:18
PROVIDERS: PCP Internal Medicine; Visit Provider Internal Medicine
DX: D75.82 Heparin induced thrombocytopenia (HIT) (principal); R78.81 Bacteremia; Z45.2 Encounter for adjustment and management of vascular access device
CPT/HCPCS: 96365; J0696

== ENCOUNTER → 2021-10-29 13:35 | Outpatient (BNVA) | payer MEDICARE, SELFPAY | PROVIDERS: PCP Internal Medicine; Referring Provider Internal Medicine; Visit Provider Internal Medicine | DX: I13.0 Hypertensive heart and chronic kidney disease with heart failure and stage 1 through stage 4 chronic kidney disease, or unspecified chronic kidney disease (principal); I50.812 Chronic right heart failure; N18.9 Chronic kidney disease, unspecified; E11.22 Type 2 diabetes mellitus with diabetic chronic kidney disease; I35.8 Other nonrheumatic aortic valve disorders; I48.19 Other persistent atrial fibrillation; E78.5 Hyperlipidemia, unspecified; D75.82 Heparin induced thrombocytopenia (HIT); K92.2 Gastrointestinal hemorrhage, unspecified; Z79.01 Long term (current) use of anticoagulants; Z79.899 Other long term (current) drug therapy; Z95.1 Presence of aortocoronary bypass graft; Z95.3 Presence of xenogenic heart valve | CPT/HCPCS: 99212 ==

== ENCOUNTER → 2021-12-10 07:23 | Outpatient (BNVA) | payer MEDICARE, SELFPAY | PROVIDERS: PCP Internal Medicine; Referring Provider Internal Medicine; Visit Provider Internal Medicine | DX: I13.0 Hypertensive heart and chronic kidney disease with heart failure and stage 1 through stage 4 chronic kidney disease, or unspecified chronic kidney disease (principal); N18.9 Chronic kidney disease, unspecified; I50.812 Chronic right heart failure; E11.22 Type 2 diabetes mellitus with diabetic chronic kidney disease; I48.19 Other persistent atrial fibrillation; E78.5 Hyperlipidemia, unspecified; K92.2 Gastrointestinal hemorrhage, unspecified; Z95.3 Presence of xenogenic heart valve; Z95.1 Presence of aortocoronary bypass graft | CPT/HCPCS: 99212 ==

== ENCOUNTER 2021-12-10 10:48 | Outpatient (REF) | payer MEDICARE, SELFPAY ==
[2021-12-10 10:54] LABS: MANUAL DIFF FLAG NO
[2021-12-10 11:02] LABS: Basophils Absolute Auto 0.1 X10*3/uL (0.0-0.2); Basophils Percent Auto 0.9 % (0-2); Eosinophils Absolute Auto 0.3 X10*3/uL (0.0-0.4); Eosinophils Percent Auto 4.5 % (0-4); Hematocrit 39.1 % (42.0-52.0); Hemoglobin 12.4 g/dl (14.0-18.0); Imm Gran Abs Auto 0.02 X10*3/uL (0.00-0.03); Imm Gran Pct Auto 0.3 % (0.0-0.4); Lymphocytes Percent Auto 15.6 % (20-40); Mean Corpuscular HGB Conc 31.7 g/dl (31.0-36.0); Mean Corpuscular Hemoglobin 27.7 pg (27.0-33.0); Mean Corpuscular Volume 87.3 fL (80.0-98.0); Mean Platelet Volume 11.4 fL (9.4-12.4); Monocytes Absolute Auto 0.7 X10*3/uL (0.1-1.2); Neutrophils Absolute Auto 4.6 x10*3/uL (2.0-8.3); Neutrophils Percent Auto 68.7 % (45-73); Platelet Count 152 X10*3/uL (160-400); Red Blood Count 4.48 X10*6/uL (4.60-5.80); White Blood Count 6.7 X10*3/uL (4.8-10.8)
[2021-12-10 11:09] LABS: Appearance Urine CLEAR; Color Urine YELLOW; Glucose Urine UA 100 MG/DL (NEG); Leukocyte Esterase Urine NEG (NEG); Nitrite Urine NEG (NEG); PH 5.5 (5.0-8.0); Specific Gravity - Urine 1.015 (1.005-1.025); Urine Blood NEG (NEG); Urine Ketones NEG (NEG); Urine Protein 1+ MG/DL (NEG-TRACE)
[2021-12-10 11:20] LABS: Alanine Aminotransferase 20 U/L (0-40); Albumin Level 3.6 g/dL (3.5-5.0); Alkaline Phosphatase 156 U/L (39-117); Anion Gap 12 (12-20); Aspartate Amino Transferase 20 U/L (5-37); Bilirubin Total 0.8 mg/dL (0.0-1.0); Blood Urea Nitrogen 34 mg/dL (9-16); Calcium 9.1 mg/dL (8.4-10.2); Carbon Dioxide 29 mmol/L (22-29); Chloride 100 mmol/L (96-108); Cholesterol 109 mg/dL; Estimated Glomerular Filt Rate 48; Glucose Fasting 190 mg/dL (60-99); HDL Cholesterol 25 mg/dL; LDL Cholesterol Calculated 70 mg/dl; Potassium 4.1 mmol/L (3.3-5.1); Sodium 137 mmol/L (135-145); Total Protein 8.8 g/dL (6.5-8.0); Triglycerides 71 mg/dL
[2021-12-10 11:26] LABS: RBC Urine 0-2 /HPF (0); WBC Urine 0-2 /HPF (0-4)
[2021-12-10 11:41] LABS: PSA,Total (Free>4and<10) 0.78 ng/mL (0.00-4.00); TSH reflex Free T4 4.85 uIU/mL (0.32-4.0)
[2021-12-10 11:51] LABS: Estimated Average Glucose 220 mg/dL; Hemoglobin A1c % 9.3 %
[2021-12-10 11:52] LABS: Vitamin B12 358 pg/mL (200-900)
[2021-12-10 12:25] LABS: Creatinine Urine 107.31 mg/dL; Microalbum/Creatinine Ratio Ur 221.7 ug/mg cr
[2021-12-10 12:58] LABS: Free T4 (Free Thyroxine) 1.02 ng/dL (0.71-1.85)
== END 2021-12-10 10:49 | disposition home or self-care (01) ==
LOC: HO.LNP 10:48
PROVIDERS: Visit Provider Internal Medicine
DX: E11.40 Type 2 diabetes mellitus with diabetic neuropathy, unspecified (principal); E03.9 Hypothyroidism, unspecified; E78.00 Pure hypercholesterolemia, unspecified; I10 Essential (primary) hypertension; E53.8 Deficiency of other specified B group vitamins; Z12.5 Encounter for screening for malignant neoplasm of prostate
CPT/HCPCS: 80053; 80061; 81001; 81003; 82043; 82607; 83036; 84153; 84439; 84443; 85025; 99212

== ENCOUNTER 2022-01-31 08:04 | Outpatient (REF) | payer MEDICARE, SELFPAY ==
--- NOTE | ~2022-01-31 | CT_ITS ---
EXAMINATION: CT CHEST WITHOUT CONTRAST CLINICAL INFORMATION: Solitary pulmonary nodule. COMPARISON: Chest x-ray 09/24/2021. TECHNIQUE: Multidetector volumetric CT imaging of the chest was done. Axial MIP volume rendering provided. Sagittal and coronal reformatted images were obtained. This CT examination was performed using dose optimization techniques as appropriate, variously including the following: *Automated exposure control *Adjustment of mA and/or kV according to patient size (this includes techniques or standardized protocols for targeted exams where dose is matched to indication/reason for exam; i.e. extremities or head) *Use of iterative reconstruction technique DLP: 223 mGy-cm FINDINGS: The exam is limited secondary to breathing artifact. OCCUPATIONAL THERAPY PROGRAM DIRECTOR: Unremarkable. LUNGS: The lungs are well expanded with patchy consolidation/atelectasis in left lower lobe. There is a focal ill-defined opacity in the lingula likely small nodule or consolidation. Rest of the lungs are well expanded and clear. MEDIASTINUM: The thyroid lobes are symmetric and normal. The central trachea and the bronchi are widely patent. Heart size and the great vessels are normal caliber. There are coronary artery calcifications. No pericardial effusion seen. There are benign lymph nodes in the precarinal space. There is no pericardial effusion seen. There are coronary artery and mitral valve calcifications. PLEURA: There is a very small lacunar left posterior pleural effusion. No pleural thickening or calcified plaque seen. AXILLA: No lymphadenopathy. UPPER ABDOMEN: Visualized liver, spleen, pancreas and bilateral adrenal glands are unremarkable. OSSEOUS STRUCTURES: There is exaggerated thoracic kyphosis with mild ventral spondylosis. No visible acute fracture, lytic or sclerotic process seen. There are median sternotomy sutures from previous intervention. CT/CT chest wo con IMPRESSION: Left lower lobe patchy consolidation/atelectasis. In addition there is an ill-defined opacity question small nodular consolidation in the lingula. Loculated left posterior basilar pleural effusion. Evidence of previous CABG with coronary artery and mitral valve calcifications. No pericardial effusion seen. Fleischner guidelines were followed.
== END 2022-01-31 08:05 | disposition home or self-care (01) ==
LOC: HO.CT 08:04
PROVIDERS: Visit Provider Surgery
DX: R91.1 Solitary pulmonary nodule (principal)
CPT/HCPCS: 71250

== ENCOUNTER 2022-02-07 03:56 | Inpatient (IN) | payer MEDICARE, SELFPAY ==
[2022-02-07] VITALS (10 sets, daily range): BP systolic 104–139; BP diastolic 40–74; PULSE 67–118; RESP 18–48; TEMP 36.8–38.4; O2SAT 90–100; BMI 28.5
--- NOTE | ~2022-02-07 | MR_ITS ---
EXAMINATION: MR FOOT WITHOUT AND WITH CONTRAST, LEFT CLINICAL INFORMATION: Evaluate for osteomyelitis of the foot. COMPARISON: X-ray of the left foot August 2021. MRI of the left foot September 2021. TECHNIQUE: MRI of the left foot is performed without and with contrast. Contrast dose 10 mL of Gadavist contrast given intravenously. FINDINGS: Fourth Ray: There is a focal ulceration and sinus tract extending to a lobulated fluid collection abutting the plantar aspect of the metaphysis of the 4th metatarsal. The sinus tract measures up to 4 mm. The peripherally enhancing fluid collection measures up to 4 cm transverse, 0.8 cm dorsal to plantar, and measures 5 cm proximal to distal beginning at the level of the 4th tarsometatarsal joint and extending distally to the level of the neck of the 4th metatarsal. There is generalized abnormal signal in the soft tissues surrounding the fluid collection and 4th metatarsal compatible with adjacent cellulitis. The fluid signal appears to extend superficially through the cortex of the proximal metatarsal. There appears to be much more subtle increased T2, decreased T1 signal in the proximal two-thirds portion of the metatarsal. These findings are suspicious for osteomyelitis particularly involving the proximal portion of the metatarsal. The cuboid appears intact without abnormal signal. No definite effusion of the 4th tarsometatarsal joint. Suspect at least mild arthrosis of the 4th tarsometatarsal joint. The 4th ray phalanges are intact. Fifth Ray: Postsurgical changes with resection of most of the 4th metatarsal, unchanged. There is some metallic artifact present in the soft tissues related to the apparent surgery. Additional Findings: There are postsurgical changes in the 3rd and 4th metatarsals with metallic artifact related to postsurgical change with screw placement. Evaluation is partially limited particularly of the 3rd and 4th metatarsophalangeal joints because of this artifact. Mild generalized abnormal signal in the subcutaneous soft tissues dorsally compatible with edema. Mild signal abnormality with partial enhancement of the visualized muscles of the foot compatible with nonspecific myositis. MR/MR foot LT wo/w con IMPRESSION: Findings indicative of an infection in the forefoot. There is a superficial ulceration with sinus tract communicating with an abscess abutting the 4th metatarsal. Suspect at least focal osteomyelitis involving the proximal 4th metatarsal. The may be additional extension of the infection to the more distal portion of the metatarsal as detailed above. There is cellulitis circumferentially about the 4th metatarsal. No definite involvement of the 4th tarsometatarsal joint. Postsurgical changes stable. Mild generalized edema in the subcutaneous soft tissues dorsally. Nonspecific myositis.
--- NOTE | ~2022-02-07 | XR_ITS ---
EXAMINATION: XR CHEST CLINICAL INFORMATION: Fever COMPARISON: 09/24/2021 TECHNIQUE: Frontal view of the chest was obtained. FINDINGS: Cardiac leads overlie the chest. Median sternotomy wires appear intact. Cardiac valvular hardware. Lung volumes are low. Bronchial wall thickening noted. No dense consolidation. No significant pleural effusion. No pneumothorax. The cardiomediastinal silhouette is within normal limits. XR/XR chest 1V IMPRESSION: Low lung volumes Bronchial wall thickening can be seen with a small airways process such as asthma or atypical/viral infection.
--- NOTE | ~2022-02-07 | US_ITS ---
EXAMINATION: US VENOUS ULTRASOUND WITH DOPPLER LOWER EXTREMITY, LEFT CLINICAL INFORMATION: Left lower leg pain and swelling. COMPARISON: None TECHNIQUE: Ultrasound of the deep veins is performed from the hip to the calf with compression sonography and color and pulse Doppler assessment. Spectral analysis with color-flow imaging is performed. FINDINGS: There is normal venous compression and respiratory variation and augmented flow. The visualized common femoral vein, superficial femoral vein, profunda femoral vein, popliteal vein, and the trifurcation region shows no evidence of deep venous thrombosis. No left popliteal cyst. The subcutaneous soft tissues are unremarkable. Mildly prominent reniform left inguinal lymph nodes are seen measuring up to 3.5 cm. Color Doppler showed no abnormal vascular flow If the patient's symptoms persist, followup ultrasound in 5 days 7 days might be of value to exclude proximal propagation from a non-visualized calf vein. US/US venous duplex LE IMPRESSION: 1. No evidence for deep venous thrombosis in the visualized veins of the left lower extremity. 2. Mildly prominent left inguinal lymph nodes are nonspecific, but demonstrate overall benign features. These could be reactive. * If these findings persist or enlarge, short-term repeat targeted soft tissue ultrasound can be performed as clinically indicated to assess for change.
--- NOTE | ~2022-02-07 | XR_ITS ---
EXAMINATION: XR TIBIA AND FIBULA, LEFT CLINICAL INFORMATION: Cellulitis. Rule out subcutaneous air COMPARISON: None TECHNIQUE: AP and lateral views of the left tibia and fibula were obtained. FINDINGS: No fracture or cortical disruption. Appropriate alignment of the knee and ankle with degenerative changes present. Heel spurs. Diffuse superficial soft tissue swelling. No soft tissue gas. XR/XR tibia fibula LT 2V IMPRESSION: No acute osseous abnormality. No soft tissue gas.
--- NOTE | 2022-02-07 04:04 | ECG_ITS ---
Test Reason : FEVER Blood Pressure : / mmHG Vent. Rate : 102 BPM Atrial Rate : 000 BPM P-R Int : 000 ms QRS Dur : 126 ms QT Int : 348 ms P-R-T Axes : 000 -43 028 degrees QTc Int : 453 ms Atrial fibrillation with rapid ventricular response with premature ventricular or aberrantly conducted complexes Left axis deviation Left ventricular hypertrophy with QRS widening ( [place] product , Romhilt-Rodriguez ) Abnormal ECG When compared with ECG of 17-SEP-2021 19:30, No significant change was found Referred By: Destiny Ferreira Electronically Signed By:PARDEEP CHAVES
--- NOTE | 2022-02-07 04:10 | ED.FEVER ---
HPI - Fever General Chief Complaint: Fever Stated Complaint: LETHARGIC,WEAKNESS,LE EDEMA Time Seen by Provider: 02/07/22 04:04 Source: patient, family () and EMS Mode of arrival: EMS Limitations: no limitations History of Present Illness HPI Narrative: 71 years old male came in from home for evaluation of fever and generalized weakness. Patient with history of HTN, dm, CAD status post CABG, endocarditis, AVR, chronic kidney disease, AFib on Eliquis, diabetic foot ulcer. Patient with chronic leg diabetic ulcer, been having high fever at home, patient feeling generalized weakness and lethargic. Coughing, worsening of left lower leg infection. Patient otherwise declined any chest pain, no abdominal pain, no nausea, no vomiting, no diarrhea, no shortness of breath. stated the patient had recent injury to his left goel Related Data Home Medications Medication Instructions Recorded Confirmed atorvastatin 80 mg tablet 80 mg PO DAILY 07/18/20 12/10/21 insulin glargine 100 unit/mL (3 22 unit SUBCUT DAILY 07/18/20 12/10/21 mL) subcutaneous pen levothyroxine 50 mcg tablet 50 mcg PO Q2D@0630 07/18/20 12/10/21 magnesium oxide 400 mg (241.3 mg 400 mg PO TID 07/18/20 12/10/21 magnesium) tablet insulin lispro 100 unit/mL See Protocol SUBCUT QIDACHS 07/26/20 12/10/21 subcutaneous pen (Humalog KwikPen (U-100) Insulin) tamsulosin 0.4 mg capsule (Flomax) 0.4 mg PO DAILY 07/26/20 12/10/21 omeprazole 20 mg capsule,delayed 20 mg PO BID@0630,1630 01/09/21 12/10/21 release blood sugar diagnostic #10 ea 02/01/21 12/10/21 blood-glucose meter #1 ea 02/01/21 12/10/21 pen needle, diabetic 32 gauge x #50 ea 02/01/21 12/10/21 Previous Rx's Medication Instructions Recorded lisinopril 10 mg tablet 10 mg PO DAILY #30 tab 06/18/21 furosemide 40 mg tablet (Lasix) 40 mg PO DAILY #90 tab 10/29/21 metoprolol succinate 25 mg 25 mg PO DAILY #90 tab 10/29/21 tablet,extended release 24 hr (Toprol XL) ezetimibe 10 mg tablet (Zetia) 10 mg PO BEDTIME #90 tab 12/27/21 apixaban 5 mg tablet (Eliquis) 5 mg PO BID #60 tab 01/22/22 Allergies Allergy/AdvReac Type Severity Reaction Status Date / Time Heparin Analogues Allergy Severe HIT Verified 12/10/21 08:14 [HEPARIN ANALOGUES] acetaminophen [From TYLENOL] Allergy Unknown UNKNOWN Verified 12/10/21 08:14 insulin glargine Allergy Unknown Toujeo- Verified 12/10/21 08:14 diarrhea Sulfa (Sulfonamide Allergy Unknown HIVES Verified 12/10/21 08:14 Antibiotics) [SULFA (SULFONAMIDE ANTIBIOTICS)] Review of Systems Review of Systems: All other systems are reviewed and are negative Constitutional: Reports as per HPI and Reports no additional constitutional complaints Eyes: Reports as per HPI and Reports no additional eye complaints Reports system reviewed and no additional complaints, except as documented Cardiovascular: Reports as per HPI and Reports no additional cardiovascular complaints Respiratory: Reports as per HPI and Reports no additional respiratory complaints Gastrointestinal: Reports as per HPI and Reports no additional gastrointestinal complaints Genitourinary: Reports no additional female genitourinary complaints Musculoskeletal: Reports no additional musculoskeletal complaints Skin/Breast: Reports system reviewed and no additional complaints, except as docu Psychiatric: Reports no additional psychiatric complaints Endocrine: Reports no additional endocrine complaints Hematologic/Lymphatic: Reports no additional hematologic/lymphatic complaints Allergic/Immunologic: Reports no additional allergic/immunologic complaints Reports system reviewed and no additional complaints, except as documented and Reports Abnormal speech present [facility] Past Medical History Medical History Atrial fibrillation Chronic kidney disease, unspecified Coronary artery disease Diabetic foot ulcer Endocarditis of aortic valve Essential hypertension Hemorrhage of gastrointestinal tract, unspecified History of hemodialysis HIT (heparin-induced thrombocytopenia) (~2018) Hyperlipidemia, unspecified Hypomagnesemia Hypothyroidism Persistent atrial fibrillation Pulmonary nodule Type 2 diabetes mellitus with unspecified complications Surgical History History of cardiac catheterization (~11/17/18) History of lung biopsy (~02/14/21) History of maze procedure Status post aortic valve replacement with bioprosthetic valve (~01/2019) Status post coronary artery bypass graft (~01/2019) Status post foot surgery Family History Family History Father Emphysema, unspecified Mother Cardiovascular disease Social History Social History Household Members: Spouse Housing: House Do you presently have visiting nurse or other home services: No Alcohol intake: never Patient Tobacco Use Status: Former Tobacco user Advance Directives: No Advance Directives Information Provided: No Advance Directives Date on File: 06/27/20 service: No Current occupational status: retired Physical Exam Vital Signs: Vital Signs: Last Vital Signs Temp 99.9 F 02/07/22 05:35 Pulse 107 H 02/07/22 05:35 Resp 37 H 02/07/22 05:35 BP 122/57 L 02/07/22 05:35 Pulse Ox 99 02/07/22 05:35 BMI result Body Mass Index 28.5 Vital signs have been reviewed as appeared to be correct. Blood pressure normal. Heart rate high. Respiration rate normal. Temperature normal. Oxygen saturation normal. Appearance: Alert. Oriented X3. No acute distress. Head: Normal external exam. Normocephalic. Atraumatic. No Salomon signs noted. No raccoon eyes noted Eyes: PERRLA. EOMI. Conjunctiva and sclera normal. Eyelids normal. ENT: TM's Normal. Pharynx normal. Uvula midline. Moist mucous membranes. No trismus noted. No drooling noted. No muffled voice noted. Neck: Normal inspection. Neck supple. FROM. No adenopathy. Thyroid Normal. No meningeal signs. No neck mass noted. CVS: Normal heart rate and rhythm. Heart sound normal. No murmurs noted. Pulses normal throughout. Respiratory: No respiratory distress. Painless inspiration. Breath sounds normal. No wheezes/rales/rhonchi noted. Chest nontender. No accessory muscle usage noted or decreased air movement noted. Abdomen: Soft and nontender. Bowel sounds normal in all 4 quadrants. No distention noted. No organomegaly noted. No visible injury noted. Back: No CVA tenderness. Full range of motion noted. Skin: Skin warm and dry. Normal skin color. Normal skin turgor. No rashes/lesions/lacerations noted. Extremities: Chronic left foot ulcer with foul odor, area of redness, hotness, tenderness on the left lower leg with no fluctuation. Neuro: Oriented X 3. Cranial nerve exam: II-XII are grossly intact No motor deficit. No sensory deficit. Reflexes normal. Course Course Course Narrative: Assessment and plan. 2258 71-year-old male diabetic AVR with fever and cellulitis patient meet criteria for SIRS, no severe sepsis nor septic shock at this point. Patient [id number] mL of normal saline, patient also received Zosyn/vancomycin. Patient is anticoagulated using Eliquis for chronic atrial fibrillation. MDM - Fever Lab Data Attestation: I reviewed the patient's lab results. Result diagrams: 02/07/22 04:20 02/07/22 04:20 Labs: Lab Results 02/07/22 02/07/22 02/07/22 Range/Units 04:20 04:20 04:20 WBC 14.4 H (4.8-10.8) X10*3/uL RBC 3.98 L (4.60-5.80) X10*6/uL Hgb 11.4 L (14.0-18.0) g/dl Hct 34.6 L (42.0-52.0) % MCV 86.9 (80.0-98.0) fL MCH 28.6 (27.0-33.0) pg MCHC 32.9 (31.0-36.0) g/dl RDW 16.6 H (11.0-16.0) % Plt Count 132 L (160-400) X10*3/uL MPV 10.6 (9.4-12.4) fL Immature Gran % (Auto) 0.7 H (0.0-0.4) % Neut % (Auto) 92.4 H (45-73) % Lymph % (Auto) 2.0 L (20-40) % [place] % (Auto) 4.3 (2-11) % Eos % (Auto) 0.3 (0-4) % Baso % (Auto) 0.3 (0-2) % Lymph # (Auto) 0.3 L (1.2-4.9) X10*3/uL [place] # (Auto) 0.6 (0.1-1.2) X10*3/uL Eos # (Auto) 0.1 (0.0-0.4) X10*3/uL Baso # (Auto) 0.0 (0.0-0.2) X10*3/uL Abs Immat Gran (auto) 0.10 H (0.00-0.03) X10*3/uL Absolute Neuts (auto) 13.3 H (2.0-8.3) x10*3/uL Absolute Nucleated RBC 0.000 (0.0-0.012) X10*3/uL Nucleated RBC % (auto) 0.0 (0.0-0.2) /100WBC Smear Tech's Comments VERIFIED Sodium 134 L (135-145) mmol/L Potassium 4.1 (3.3-5.1) mmol/L Chloride 104 (96-108) mmol/L Carbon Dioxide 19 L (22-29) mmol/L Anion Gap 15 (12-20) BUN 31 H (9-16) mg/dL Creatinine 1.55 H (0.5-1.4) mg/dL Estim Creat Clear Calc 49.4 Estimated GFR 44 Random Glucose 211 H (60-115) mg/dL Lactic Acid (0.5-2.0) mmol/L Calcium 8.4 D (8.4-10.2) mg/dL Total Bilirubin 1.1 H (0.0-1.0) mg/dL Direct Bilirubin 0.4 (0.0-0.5) mg/dL AST 40 H D (5-37) U/L ALT 31 (0-40) U/L Alkaline Phosphatase 167 H (39-117) U/L Troponin I High Sens 38.7 H D (<3.5-35.0) ng/L B-Natriuretic Peptide 418 H (<100) pg/mL Total Protein 8.1 H (6.5-8.0) g/dL Albumin 3.2 L (3.5-5.0) g/dL Lipase 22 (8-78) U/L Urine Color Urine Appearance Urine pH (5.0-8.0) Ur Specific [place] (1.005-1.025) Urine Protein (NEG-TRACE) MG/DL Urine Glucose (UA) (NEG) MG/DL Urine Ketones (NEG) MG/DL Urine Blood (NEG) Urine Nitrite (NEG) Ur Leukocyte Esterase (NEG) Urine RBC (0) /HPF Urine WBC (0-4) /HPF Ur Squamous Epith Cells /LPF Amorphous Sediment /LPF Urine Bacteria /LPF Granular Casts /LPF Urine Mucus /LPF COVID-19 (DENG) (Negative) COVID-19 Clin Com Influenza Type A (PCR) (Negative) Influenza Type B (PCR) (Negative) RSV RNA Qual (PCR) (Negative) SARS-CoV-2 RNA (RT-PCR) (Negative) 02/07/22 02/07/22 02/07/22 Range/Units 04:20 04:20 04:25 WBC (4.8-10.8) X10*3/uL RBC (4.60-5.80) X10*6/uL Hgb (14.0-18.0) g/dl Hct (42.0-52.0) % MCV (80.0-98.0) fL MCH (27.0-33.0) pg MCHC (31.0-36.0) g/dl RDW (11.0-16.0) % Plt Count (160-400) X10*3/uL MPV (9.4-12.4) fL Immature Gran % (Auto) (0.0-0.4) % Neut % (Auto) (45-73) % Lymph % (Auto) (20-40) % [place] % (Auto) (2-11) % Eos % (Auto) (0-4) % Baso % (Auto) (0-2) % Lymph # (Auto) (1.2-4.9) X10*3/uL [place] # (Auto) (0.1-1.2) X10*3/uL Eos # (Auto) (0.0-0.4) X10*3/uL Baso # (Auto) (0.0-0.2) X10*3/uL Abs Immat Gran (auto) (0.00-0.03) X10*3/uL Absolute Neuts (auto) (2.0-8.3) x10*3/uL Absolute Nucleated RBC (0.0-0.012) X10*3/uL Nucleated RBC % (auto) (0.0-0.2) /100WBC Smear Tech's Comments Sodium (135-145) mmol/L Potassium (3.3-5.1) mmol/L Chloride (96-108) mmol/L Carbon Dioxide (22-29) mmol/L Anion Gap (12-20) BUN (9-16) mg/dL Creatinine (0.5-1.4) mg/dL Estim Creat Clear Calc Estimated GFR Random Glucose (60-115) mg/dL Lactic Acid 1.6 (0.5-2.0) mmol/L Calcium (8.4-10.2) mg/dL Total Bilirubin (0.0-1.0) mg/dL Direct Bilirubin (0.0-0.5) mg/dL AST (5-37) U/L ALT (0-40) U/L Alkaline Phosphatase (39-117) U/L Troponin I High Sens (<3.5-35.0) ng/L B-Natriuretic Peptide Cancelled (<100) pg/mL Total Protein (6.5-8.0) g/dL Albumin (3.5-5.0) g/dL Lipase (8-78) U/L Urine Color Urine Appearance Urine pH (5.0-8.0) Ur Specific [place] (1.005-1.025) Urine Protein (NEG-TRACE) MG/DL Urine Glucose (UA) (NEG) MG/DL Urine Ketones (NEG) MG/DL Urine Blood (NEG) Urine Nitrite (NEG) Ur Leukocyte Esterase (NEG) Urine RBC (0) /HPF Urine WBC (0-4) /HPF Ur Squamous Epith Cells /LPF Amorphous Sediment /LPF Urine Bacteria /LPF Granular Casts /LPF Urine Mucus /LPF COVID-19 (DENG) Negative (Negative) COVID-19 Clin Com See Note Influenza Type A (PCR) (Negative) Influenza Type B (PCR) (Negative) RSV RNA Qual (PCR) (Negative) SARS-CoV-2 RNA (RT-PCR) (Negative) 02/07/22 02/07/22 Range/Units 04:25 05:12 WBC (4.8-10.8) X10*3/uL RBC (4.60-5.80) X10*6/uL Hgb (14.0-18.0) g/dl Hct (42.0-52.0) % MCV (80.0-98.0) fL MCH (27.0-33.0) pg MCHC (31.0-36.0) g/dl RDW (11.0-16.0) % Plt Count (160-400) X10*3/uL MPV (9.4-12.4) fL Immature Gran % (Auto) (0.0-0.4) % Neut % (Auto) (45-73) % Lymph % (Auto) (20-40) % [place] % (Auto) (2-11) % Eos % (Auto) (0-4) % Baso % (Auto) (0-2) % Lymph # (Auto) (1.2-4.9) X10*3/uL [place] # (Auto) (0.1-1.2) X10*3/uL Eos # (Auto) (0.0-0.4) X10*3/uL Baso # (Auto) (0.0-0.2) X10*3/uL Abs Immat Gran (auto) (0.00-0.03) X10*3/uL Absolute Neuts (auto) (2.0-8.3) x10*3/uL Absolute Nucleated RBC (0.0-0.012) X10*3/uL Nucleated RBC % (auto) (0.0-0.2) /100WBC Smear Tech's Comments Sodium (135-145) mmol/L Potassium (3.3-5.1) mmol/L Chloride (96-108) mmol/L Carbon Dioxide (22-29) mmol/L Anion Gap (12-20) BUN (9-16) mg/dL Creatinine (0.5-1.4) mg/dL Estim Creat Clear Calc Estimated GFR Random Glucose (60-115) mg/dL Lactic Acid (0.5-2.0) mmol/L Calcium (8.4-10.2) mg/dL Total Bilirubin (0.0-1.0) mg/dL Direct Bilirubin (0.0-0.5) mg/dL AST (5-37) U/L ALT (0-40) U/L Alkaline Phosphatase (39-117) U/L Troponin I High Sens (<3.5-35.0) ng/L B-Natriuretic Peptide (<100) pg/mL Total Protein (6.5-8.0) g/dL Albumin (3.5-5.0) g/dL Lipase (8-78) U/L Urine Color YELLOW Urine Appearance CLEAR Urine pH 6.0 (5.0-8.0) Ur Specific [place] 1.020 (1.005-1.025) Urine Protein 2+ H (NEG-TRACE) MG/DL Urine Glucose (UA) NEG (NEG) MG/DL Urine Ketones 5 (NEG) MG/DL Urine Blood 1+ H (NEG) Urine Nitrite NEG (NEG) Ur Leukocyte Esterase NEG (NEG) Urine RBC 0-2 (0) /HPF Urine WBC 0-2 (0-4) /HPF Ur Squamous Epith Cells NONE /LPF Amorphous Sediment 1+ /LPF Urine Bacteria NONE /LPF Granular Casts 0-2 /LPF Urine Mucus 1+ /LPF COVID-19 (DENG) (Negative) COVID-19 Clin Com Influenza Type A (PCR) NEGATIVE (Negative) Influenza Type B (PCR) NEGATIVE (Negative) RSV RNA Qual (PCR) NEGATIVE (Negative) SARS-CoV-2 RNA (RT-PCR) NEGATIVE (Negative) Imaging Data Left leg x-ray: Attestation: I personally reviewed and interpreted this imaging study as follows: Radiologist's impression: No acute osseous abnormality. No soft tissue gas. Chest x-ray: Attestation: I personally reviewed and interpreted this imaging study as follows: Radiologist's impression: Low lung volumes Bronchial wall thickening can be seen with a small airways process such as asthma or atypical/viral infection. ? ECG Data ECG #1: Attestation: I personally reviewed and interpreted this ECG as follows: Interpretation: Atrial fibrillation at 1 0 to, PVCs, left axis diffusion, LVH. Discharge Plan Discharge Clinical Impression: Cellulitis Patient Disposition: Admitted As Inpatient Prescriptions: No Action insulin lispro [Humalog KwikPen Insulin] 100 unit/mL insulin pen See Protocol sliding scale dose subcut QIDACHS 0RF Protocol: Insulin Correction Scale Less than or equal to 110 ---- Give (units): 0 111 to 150 Give (units): 0 151 to 200 Give (units): 2 201 to 250 Give (units): 4 251 to 300 Give (units): 6 301 to 350 Give (units): 8 Greater than 350 Give (units): 10 Call MD if Blood Glucose > : 350 tamsulosin [Flomax] 0.4 mg capsule 0.4 mg PO DAILY 0RF ezetimibe [Zetia] 10 mg tablet 10 mg PO BEDTIME Qty: 90 3RF Eliquis 5 mg tablet 5 mg PO BID Qty: 60 3RF lisinopril 10 mg tablet 10 mg PO DAILY Qty: 30 5RF atorvastatin 80 mg tablet 80 mg PO DAILY 0RF levothyroxine 50 mcg tablet 50 mcg PO Q2D@0630 0RF magnesium oxide 400 mg (241.3 mg magnesium) tablet 400 mg PO TID 0RF insulin glargine 100 unit/mL (3 mL) insulin pen 22 unit subcut DAILY 0RF (DME) blood sugar diagnostic Strip See Rx Instructions ea Not Applicable QID Qty: 10 0RF Rx Instructions: As directed (DME) blood-glucose meter Kit See Rx Instructions ea .ROUTE QID Qty: 1 0RF Rx Instructions: As directed (DME) pen needle, diabetic 32 gauge x 5/32 needle See Rx Instructions ea .ROUTE .MEDSUPPLY Qty: 50 0RF Rx Instructions: As directed omeprazole 20 mg capsule,delayed release(DR/EC) 20 mg PO BID@0630,1630 0RF furosemide [Lasix] 40 mg tablet 40 mg PO DAILY Qty: 90 3RF metoprolol succinate [Toprol XL] 25 mg tablet extended release 24 hr 25 mg PO DAILY Qty: 90 3RF
[2022-02-07] MEDS: 0.9 % Sodium Chloride 2,259 ML 2259 ML IV (04:17)
[2022-02-07] MEDS: Piperacillin Sodium/Tazobactam 3.375 GM in 0.9 % Sodium Chloride 50 ML IV ×4 (04:21→22:48)
[2022-02-07 04:32] LABS: Basophils Percent Auto 0.3 % (0-2); Eosinophils Absolute Auto 0.1 X10*3/uL (0.0-0.4); Eosinophils Percent Auto 0.3 % (0-4); Hematocrit 34.6 % (42.0-52.0); Hemoglobin 11.4 g/dl (14.0-18.0); Imm Gran Pct Auto 0.7 % (0.0-0.4); Lymphocytes Absolute Auto 0.3 X10*3/uL (1.2-4.9); MANUAL DIFF FLAG SCAN; Mean Corpuscular HGB Conc 32.9 g/dl (31.0-36.0); Mean Corpuscular Hemoglobin 28.6 pg (27.0-33.0); Mean Corpuscular Volume 86.9 fL (80.0-98.0); Mean Platelet Volume 10.6 fL (9.4-12.4); Monocytes Absolute Auto 0.6 X10*3/uL (0.1-1.2); Monocytes Percent Auto 4.3 % (2-11); Neutrophils Absolute Auto 13.3 x10*3/uL (2.0-8.3); Neutrophils Percent Auto 92.4 % (45-73); Platelet Count 132 X10*3/uL (160-400); Red Blood Count 3.98 X10*6/uL (4.60-5.80); Red Cell Distribution Width 16.6 % (11.0-16.0); SCAN SMEAR FLAG 1; White Blood Count 14.4 X10*3/uL (4.8-10.8)
[2022-02-07 04:40] LABS: Lactic Acid 1.6 mmol/L (0.5-2.0)
[2022-02-07 04:47] LABS: Alanine Aminotransferase 31 U/L (0-40); Albumin Level 3.2 g/dL (3.5-5.0); Alkaline Phosphatase 167 U/L (39-117); Anion Gap 15 (12-20); Aspartate Amino Transferase 40 U/L (5-37); Bilirubin Direct 0.4 mg/dL (0.0-0.5); Bilirubin Total 1.1 mg/dL (0.0-1.0); Blood Urea Nitrogen 31 mg/dL (9-16); Calcium 8.4 mg/dL (8.4-10.2); Carbon Dioxide 19 mmol/L (22-29); Chloride 104 mmol/L (96-108); Creatinine Clr Calc Pharmacy 49.4; Estimated Glomerular Filt Rate 44; Glucose Random 211 mg/dL (60-115); Lipase 22 U/L (8-78); Potassium 4.1 mmol/L (3.3-5.1); Sodium 134 mmol/L (135-145); Total Protein 8.1 g/dL (6.5-8.0)
[2022-02-07 04:52] LABS: B Type Natriuretic Peptide 418 pg/mL (<100); Troponin-I High Sensitivity 38.7 ng/L (<3.5-35.0)
[2022-02-07 04:55] LABS: COVID-19 Test Negative (Negative)
[2022-02-07 04:58] LABS: SLIDE REVIEW VERIFIED
[2022-02-07 05:10] LABS: Influenza A PCR NEGATIVE (Negative); Influenza B PCR NEGATIVE (Negative); Resp Syncy Virus RNA Qual PCR NEGATIVE (Negative); SARS COV2 PCR INHOUSE NEGATIVE (Negative)
[2022-02-07 05:21] LABS: Appearance Urine CLEAR; Color Urine YELLOW; Glucose Urine UA NEG (NEG); Leukocyte Esterase Urine NEG (NEG); Nitrite Urine NEG (NEG); UACC Culture Trigger NO; Urine Blood 1+ (NEG); Urine Ketones 5 MG/DL (NEG); Urine Protein 2+ MG/DL (NEG-TRACE)
[2022-02-07 05:28] LABS: Amorphous Sediment Urine 1+ /LPF; Granular Casts Urine 0-2 /LPF; Mucus Urine 1+ /LPF; RBC Urine 0-2 /HPF (0); WBC Urine 0-2 /HPF (0-4)
[2022-02-07] MEDS: vancomycin HCL 1,000 MG in 0.9 % Sodium Chloride 250 ML 270 MG IV (05:29)
--- NOTE | 2022-02-07 05:37 | PC.NURSE ---
Addendum entered by Elissa Alvarez 02/07/22 06:58: Report given to RENNY Marshall Original Note: pt arrived alert and oriented from home, pt been c/o of fever since yesterday. wound notice to L under the foot. pt found to be incontinent of urine and stools, incontinent care provided . pt started on continuos cardiac monitoring. pt sating 91 RA. started on 2L of NC, sating at 99%
--- NOTE | 2022-02-07 09:16 | PHA.MEDREC ---
Pharmacy Consult ? Medication Reconciliation Pharmacy has completed the medication reconciliation. Spoke with patient in the ED. Patient has not filled levothyroxine or lisinopril in a while and says he needs refills. Pt last took medications yesterday.
--- NOTE | 2022-02-07 10:49 | PHA.PROG ---
Admission Date/Time: February 07, 2022 10:21 Indication:SKIN/SKIN STRUCTURE INF Weight in k kg Adjusted body weight in K.4 [place] body weight in K.3 Obesity Dosing Indication % IBW: Serum Creatinine - Last 168 Hours 02/07/22 04:20 Creatinine 1.55 H Estimated CrCl and GFR - Last 168 Hours 02/07/22 04:20 Estim Creat Clear Calc 49.4 Estimated GFR 44 Vancomycin Loading Dose: 1000 MG X 1 + 500 MG Current Vancomycin Dosing Regimen: 1250 Q24H Vancomycin Monitoring using AUC goal of 400 - 600 range with trough as surrogate marker: PREDICTED AUC OF 500 Date and Time for next Vancomycin Level to be drawn: 02/09/22 @0600 BEFORE 3RD DOSE Pharmacist Comments on Vancomycin Plan: Vancomycin dosing will take advantage of Warp 9 as a clinical decision support tool that uses Bayesian modeling to calculate individual patient's pharmacokinetic parameters and forecast the patient's drug concentration time course with the target goal AUC 24 range of 400 - 600 mg/L/hr.
[2022-02-07] MEDS: Omeprazole 20 MG CAPSULE.DR PO ×2 (10:51→17:49)
[2022-02-07] MEDS: Apixaban 5 MG TABLET PO ×2 (10:52→20:33)
[2022-02-07] MEDS: Furosemide 40 MG TABLET PO (10:52)
[2022-02-07] MEDS: Magnesium Oxide 400 MG TABLET PO ×3 (10:52→20:33)
[2022-02-07] MEDS: vancomycin HCL 500 MG in 0.9 % Sodium Chloride 100 ML 110 MG IV (11:50)
[2022-02-07] MEDS: Insulin Glargine,Hum.rec.anlog 100 UNIT/ML 10 ML VIAL 22 UNIT SUBCUT (11:51)
--- NOTE | 2022-02-07 14:06 | P.CNID_ITS ---
History of Present Illness Data of Consult Service Date: 02/07/22 Requesting physician: Harry Henry Primary Care Provider: Nicolás Rai MD HPI Reason for consult: fever of unknown origin,cellulitis He presents with weakness and lethargy and temperature over last day to 101. He noticed increased redness LLE and discomfort mid goel area. He has chronic nonhealing wound left plantar area. He has had Group C strep bacteremia September as well as prior enterococcus faecalis bacteremia and thought to be vegetation aortic valve. He received treatment He doesnt recall injury to leg. Review of Systems Review of Systems: Yes all other systems are reviewed and are negative [facility] Past Medical History Medical History (Updated 02/07/22 @ 14:11 by Tequila Kang MD) Atrial fibrillation Chronic kidney disease, unspecified Coronary artery disease Diabetic foot ulcer Endocarditis of aortic valve Essential hypertension Hemorrhage of gastrointestinal tract, unspecified History of hemodialysis HIT (heparin-induced thrombocytopenia) (~2018) Hyperlipidemia, unspecified Hypomagnesemia Hypothyroidism Persistent atrial fibrillation Pulmonary nodule Type 2 diabetes mellitus with unspecified complications Family History Family History Father Emphysema, unspecified Mother Cardiovascular disease Family history: reviewed and not pertinent Surgical History Surgical History History of cardiac catheterization (~11/17/18) History of lung biopsy (~02/14/21) History of maze procedure Status post aortic valve replacement with bioprosthetic valve (~01/2019) Status post coronary artery bypass graft (~01/2019) Status post foot surgery Social History Social History Household Members: Spouse Housing: House Do you presently have visiting nurse or other home services: No Alcohol intake: never Patient Tobacco Use Status: Former Tobacco user Advance Directives: No Advance Directives Information Provided: No Advance Directives Date on File: 06/27/20 service: No Current occupational status: retired Meds Allergies Allergy/AdvReac Type Severity Reaction Status Date / Time Heparin Analogues Allergy Severe HIT Verified 12/10/21 08:14 [HEPARIN ANALOGUES] acetaminophen [From TYLENOL] Allergy Unknown UNKNOWN Verified 12/10/21 08:14 insulin glargine Allergy Unknown Toujeo- Verified 12/10/21 08:14 diarrhea Sulfa (Sulfonamide Allergy Unknown HIVES Verified 12/10/21 08:14 Antibiotics) [SULFA (SULFONAMIDE ANTIBIOTICS)] Active Medications: Current Medications Apixaban (Apixaban 5 Mg Tablet) 5 mg PO BID [facility] Last Admin: 02/07/22 10:52 Dose: 5 mg Documented by: Atorvastatin Calcium (Atorvastatin Calcium 80 Mg Tablet) 80 mg PO BEDTIME [facility] Docusate Sodium (Docusate Sodium 100 Mg Capsule) 100 mg PO BID [facility] Last Admin: 02/07/22 11:55 Dose: Not Given Documented by: Ezetimibe (Ezetimibe 10 Mg Tablet) 10 mg PO BEDTIME [facility] Furosemide (Furosemide 40 Mg Tablet) 40 mg PO DAILY [facility]; Protocol Last Admin: 02/07/22 10:52 Dose: 40 mg Documented by: Piperacillin Sod/Tazobactam (Sod 3.375 gm/ Sodium Chloride) 50 mls @ 100 mls/hr IV Q6H [facility] Last Infusion: 02/07/22 12:59 Dose: Infused Documented by: Vancomycin HCl 1,250 mg/ (Sodium Chloride) 250 mls @ 166.667 mls/hr IV Q24H [facility] Insulin Glargine (Insulin Glargine,Hum.Rec.Anlog 100 Unit/Ml 10 Ml Vial) 22 unit SUBCUT DAILY [facility] Last Admin: 02/07/22 11:51 Dose: 22 unit Documented by: Levothyroxine Sodium (Levothyroxine Sodium 50 Mcg Tablet) 50 mcg PO Q2D@0630 [facility] Magnesium Oxide (Magnesium Oxide 400 Mg Tablet) 400 mg PO TID [facility] Last Admin: 02/07/22 10:52 Dose: 400 mg Documented by: Metoprolol Succinate (Metoprolol Succinate Er 25 Mg Tab.Er.24h) 25 mg PO BEDTIME [facility]; Protocol Omeprazole (Omeprazole 20 Mg Capsule.Dr) 20 mg PO BID@0630,1630 [facility] Last Admin: 02/07/22 10:51 Dose: 20 mg Documented by: Pharmacy Consult (Consult Rx Perform Med Rec) 1 each MISCELLANE ONCE PRN PRN Reason: Consult order Pharmacy Consult (Consult Rx Vancomycin Dosing) 1 each MISCELLANE DAILY PRN PRN Reason: Consult order Sodium Chloride (0.9 % Sodium Chloride Flush 3 Ml Syringe) 3 ml IVFLUSH QSHIFT [facility] Tamsulosin HCl (Tamsulosin Hcl 0.4 Mg Capsule) 0.4 mg PO DAILY@1700 [facility] Home Medications Medication Instructions Recorded Confirmed Last Taken Type atorvastatin 80 mg tablet 80 mg PO BEDTIME 07/18/20 02/07/22 02/06/22 History insulin glargine 100 unit/mL (3 22 unit SUBCUT DAILY 07/18/20 02/07/22 02/06/22 History mL) subcutaneous pen levothyroxine 50 mcg tablet 50 mcg PO Q2D@0630 07/18/20 02/07/22 02/06/22 History magnesium oxide 400 mg (241.3 mg 400 mg PO TID 07/18/20 02/07/22 02/06/22 History magnesium) tablet insulin lispro 100 unit/mL See Protocol SUBCUT QIDACHS 07/26/20 02/07/22 02/06/22 History subcutaneous pen (Humalog KwikPen (U-100) Insulin) tamsulosin 0.4 mg capsule (Flomax) 0.4 mg PO DAILY@1700 07/26/20 02/07/22 02/06/22 History omeprazole 20 mg capsule,delayed 20 mg PO BID@0630,1630 01/09/21 02/07/22 02/06/22 History release blood sugar diagnostic #10 ea 02/01/21 12/10/21 02/06/22 History blood-glucose meter #1 ea 02/01/21 12/10/21 02/06/22 History pen needle, diabetic 32 gauge x #50 ea 02/01/21 12/10/21 02/06/22 History docusate sodium 100 mg capsule 100 mg PO BID 02/07/22 02/07/22 02/06/22 History (Stool Softener) metoprolol succinate 25 mg 25 mg PO BEDTIME 02/07/22 02/07/22 02/06/22 History tablet,extended release 24 hr (Toprol XL) Physical Exam Vital Signs: Vital Signs: Last Vital Signs Temp 99.3 F 02/07/22 08:20 Pulse 67 02/07/22 10:19 Resp 30 H 02/07/22 10:19 BP 131/40 L 02/07/22 10:19 Pulse Ox 100 02/07/22 10:19 BMI result Body Mass Index 28.5 Const: General: cooperative Eyes: General: appearance normal, both eyes and all related structures Pupils: Equal, round and reactive pupils present Resp: Effort & Inspection: normal respiratory effort Cardio: Rate: regular rate Rhythm: regular rhythm GI: Palpation (GI): Soft to palpation and nontender Skin: General skin exam: no rashes or lesions noted Neuro: Cranial nerves: Yes Equal, round and reactive pupils present Extrem: Other: redness midcalf left leg one cm ulcer plantar area foot with no exudate or warmth Results Labs CBC & Chem 7: 02/07/22 04:20 02/07/22 04:20 Labs: Short CBC 02/07/22 Range/Units 04:20 WBC 14.4 H (4.8-10.8) X10*3/uL Hgb 11.4 L (14.0-18.0) g/dl Hct 34.6 L (42.0-52.0) % Plt Count 132 L (160-400) X10*3/uL BMP 02/07/22 04:20 Sodium 134 L Potassium 4.1 Chloride 104 Carbon Dioxide 19 L BUN 31 H Creatinine 1.55 H Calcium 8.4 D Liver Function 02/07/22 Range/Units 04:20 Total Bilirubin 1.1 H (0.0-1.0) mg/dL Direct Bilirubin 0.4 (0.0-0.5) mg/dL AST 40 H D (5-37) U/L ALT 31 (0-40) U/L Alkaline Phosphatase 167 H (39-117) U/L Albumin 3.2 L (3.5-5.0) g/dL Urine 02/07/22 Range/Units 05:12 Urine Color YELLOW Urine Appearance CLEAR Urine pH 6.0 (5.0-8.0) Ur Specific [place] 1.020 (1.005-1.025) Urine Protein 2+ H (NEG-TRACE) MG/DL Urine Glucose (UA) NEG (NEG) MG/DL Assessment and Plan (1) Cellulitis: Status: Acute There is concern over bacteremia with prior endocarditis and chronic left plantar ulcer (2) Chronic right heart failure: Status: Acute (3) Endocarditis of aortic valve: Status: Acute Plan Would continue Zosyn and Vancomycin at this time. Await culture and adjust antibiotics accordingly. If bacteremia would check TTE and probably DEREK look for endocarditis/valve ring abscess Check imaging left foot/MRI/CT
--- NOTE | 2022-02-07 14:54 | PM.EVENT ---
Event Note Date of Service: 02/07/22 Event Note: Pt seen and examined Full Consult to follow D/w Medical team
--- NOTE | 2022-02-07 15:40 | PM.IMHP ---
History of Present Illness Date of Service: 02/07/22 Chief Complaint: leg cellulitis /foot ulcer 71-year-old male with a past medical history of hypertension, hyperlipidemia, diabetes, CAD status post CABG, 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 generalized weakness and subject to chills; denies any burning or frequency with urination, denies any back or neck pain or chest pain or palpitations or cough or sputum. Mentions he has chronic ulcer on his left foot.? Review of Systems Review of Systems: As above. Yes all other systems are reviewed and are negative [facility] Medical History Atrial fibrillation Chronic kidney disease, unspecified Coronary artery disease Diabetic foot ulcer Endocarditis of aortic valve Essential hypertension Hemorrhage of gastrointestinal tract, unspecified History of hemodialysis HIT (heparin-induced thrombocytopenia) (~2018) Hyperlipidemia, unspecified Hypomagnesemia Hypothyroidism Persistent atrial fibrillation Pulmonary nodule Type 2 diabetes mellitus with unspecified complications Family History Father Emphysema, unspecified Mother Cardiovascular disease Pertinent family history: father -has emphysema Surgical History History of cardiac catheterization (~11/17/18) History of lung biopsy (~02/14/21) History of maze procedure Status post aortic valve replacement with bioprosthetic valve (~01/2019) Status post coronary artery bypass graft (~01/2019) Status post foot surgery Social History Household Members: Spouse Housing: House Do you presently have visiting nurse or other home services: No Alcohol intake: never Patient Tobacco Use Status: Former Tobacco user Advance Directives Date on File: 06/27/20 service: No Current occupational status: retired Meds Allergies Allergy/AdvReac Type Severity Reaction Status Date / Time Heparin Analogues Allergy Severe HIT Verified 12/10/21 08:14 [HEPARIN ANALOGUES] acetaminophen [From TYLENOL] Allergy Unknown UNKNOWN Verified 12/10/21 08:14 insulin glargine Allergy Unknown Toujeo- Verified 12/10/21 08:14 diarrhea Sulfa (Sulfonamide Allergy Unknown HIVES Verified 12/10/21 08:14 Antibiotics) [SULFA (SULFONAMIDE ANTIBIOTICS)] Active Medications: Current Medications Apixaban (Apixaban 5 Mg Tablet) 5 mg PO BID [facility] Last Admin: 02/07/22 10:52 Dose: 5 mg Documented by: Atorvastatin Calcium (Atorvastatin Calcium 80 Mg Tablet) 80 mg PO BEDTIME [facility] Docusate Sodium (Docusate Sodium 100 Mg Capsule) 100 mg PO BID [facility] Last Admin: 02/07/22 11:55 Dose: Not Given Documented by: Ezetimibe (Ezetimibe 10 Mg Tablet) 10 mg PO BEDTIME [facility] Furosemide (Furosemide 40 Mg Tablet) 40 mg PO DAILY [facility]; Protocol Last Admin: 02/07/22 10:52 Dose: 40 mg Documented by: Piperacillin Sod/Tazobactam (Sod 3.375 gm/ Sodium Chloride) 50 mls @ 100 mls/hr IV Q6H [facility] Last Infusion: 02/07/22 12:59 Dose: Infused Documented by: Vancomycin HCl 1,250 mg/ (Sodium Chloride) 250 mls @ 166.667 mls/hr IV Q24H [facility] Insulin Glargine (Insulin Glargine,Hum.Rec.Anlog 100 Unit/Ml 10 Ml Vial) 22 unit SUBCUT DAILY [facility] Last Admin: 02/07/22 11:51 Dose: 22 unit Documented by: Levothyroxine Sodium (Levothyroxine Sodium 50 Mcg Tablet) 50 mcg PO Q2D@0630 [facility] Magnesium Oxide (Magnesium Oxide 400 Mg Tablet) 400 mg PO TID [facility] Last Admin: 02/07/22 14:40 Dose: 400 mg Documented by: Metoprolol Succinate (Metoprolol Succinate Er 25 Mg Tab.Er.24h) 25 mg PO BEDTIME [facility]; Protocol Omeprazole (Omeprazole 20 Mg Capsule.) 20 mg PO BID@0630,1630 [facility] Last Admin: 02/07/22 10:51 Dose: 20 mg Documented by: Pharmacy Consult (Consult Rx Perform Med Rec) 1 each MISCELLANE ONCE PRN PRN Reason: Consult order Pharmacy Consult (Consult Rx Vancomycin Dosing) 1 each MISCELLANE DAILY PRN PRN Reason: Consult order Sodium Chloride (0.9 % Sodium Chloride Flush 3 Ml Syringe) [facility] Tamsulosin HCl (Tamsulosin Hcl 0.4 Mg Capsule) 0.4 mg PO DAILY@1700 [facility] Home Medications Medication Instructions Recorded Confirmed Last Taken Type atorvastatin 80 mg tablet 80 mg PO BEDTIME 07/18/20 02/07/22 02/06/22 History insulin glargine 100 unit/mL (3 22 unit SUBCUT DAILY 07/18/20 02/07/22 02/06/22 History mL) subcutaneous pen levothyroxine 50 mcg tablet 50 mcg PO Q2D@0630 07/18/20 02/07/22 02/06/22 History magnesium oxide 400 mg (241.3 mg 400 mg PO TID 07/18/20 02/07/22 02/06/22 History magnesium) tablet insulin lispro 100 unit/mL See Protocol SUBCUT QIDACHS 07/26/20 02/07/22 02/06/22 History subcutaneous pen (Humalog KwikPen (U-100) Insulin) tamsulosin 0.4 mg capsule (Flomax) 0.4 mg PO DAILY@1700 07/26/20 02/07/22 02/06/22 History omeprazole 20 mg capsule,delayed 20 mg PO BID@0630,1630 01/09/21 02/07/22 02/06/22 History release blood sugar diagnostic #10 ea 02/01/21 12/10/21 02/06/22 History blood-glucose meter #1 ea 02/01/21 12/10/21 02/06/22 History pen needle, diabetic 32 gauge x #50 ea 02/01/21 12/10/21 02/06/22 History docusate sodium 100 mg capsule 100 mg PO BID 02/07/22 02/07/22 02/06/22 History (Stool Softener) metoprolol succinate 25 mg 25 mg PO BEDTIME 02/07/22 02/07/22 02/06/22 History tablet,extended release 24 hr (Toprol XL) Physical Exam Vital Signs and Narrative: Vital Signs: Last Vital Signs Temp 98.6 F 02/07/22 14:55 Pulse 67 02/07/22 10:19 Resp 30 H 02/07/22 10:19 BP 131/40 L 02/07/22 10:19 Pulse Ox 100 02/07/22 10:19 BMI result Body Mass Index 28.5 Appearance: Alert.? Oriented X3.generalised weak.? Eyes: Pupils equal, round and reactive to light.? Sclera nonicteric.? ENT: Pharynx normal.? Moist mucous membranes. cvs: irregular rythem, [id number]. res:fair air netry,no rales or wheezing. abd: no rebound or guarding ,nt, bs present. ext pulses present , no cyanosis right leg swleling and bruise ,erythma ,mild foot swelling also, right leg warm than left. left foot bottom -had ulcer (? chronic) -no discharge ,foot swelling /mild eerythema neuro: axo3 , nonfocal. Results Labs CBC and Chem 7: 02/07/22 04:20 02/07/22 04:20 Labs: Laboratory Results - last 24 hr 02/07/22 02/07/22 02/07/22 04:20 04:20 04:20 MCV 86.9 MCH 28.6 MCHC 32.9 RDW 16.6 H Plt Count 132 L MPV 10.6 Immature Gran % (Auto) 0.7 H Neut % (Auto) 92.4 H Lymph % (Auto) 2.0 L [place] % (Auto) 4.3 Eos % (Auto) 0.3 Baso % (Auto) 0.3 Lymph # (Auto) 0.3 L [place] # (Auto) 0.6 Eos # (Auto) 0.1 Baso # (Auto) 0.0 Abs Immat Gran (auto) 0.10 H Absolute Neuts (auto) 13.3 H Absolute Nucleated RBC 0.000 Nucleated RBC % (auto) 0.0 Smear Tech's Comments VERIFIED Anion Gap 15 Estim Creat Clear Calc 49.4 Estimated GFR 44 Random Glucose 211 H Lactic Acid Calcium 8.4 D Total Bilirubin 1.1 H Direct Bilirubin 0.4 AST 40 H D ALT 31 Alkaline Phosphatase 167 H Troponin I High Sens 38.7 H D B-Natriuretic Peptide 418 H Total Protein 8.1 H Albumin 3.2 L Lipase 22 Urine Color Urine Appearance Urine pH Ur Specific [place] Urine Protein Urine Glucose (UA) Urine Ketones Urine Blood Urine Nitrite Ur Leukocyte Esterase Urine RBC Urine WBC Ur Squamous Epith Cells Amorphous Sediment Urine Bacteria Granular Casts Urine Mucus COVID-19 ([facility]) COVID-19 Clin Com Influenza Type A (PCR) Influenza Type B (PCR) RSV RNA Qual (PCR) SARS-CoV-2 RNA (RT-PCR) 02/07/22 02/07/22 02/07/22 04:20 04:20 04:25 MCV MCH MCHC RDW Plt Count MPV Immature Gran % (Auto) Neut % (Auto) Lymph % (Auto) [place] % (Auto) Eos % (Auto) Baso % (Auto) Lymph # (Auto) [place] # (Auto) Eos # (Auto) Baso # (Auto) Abs Immat Gran (auto) Absolute Neuts (auto) Absolute Nucleated RBC Nucleated RBC % (auto) Smear Tech's Comments Anion Gap Estim Creat Clear Calc Estimated GFR Random Glucose Lactic Acid 1.6 Calcium Total Bilirubin Direct Bilirubin AST ALT Alkaline Phosphatase Troponin I High Sens B-Natriuretic Peptide Cancelled Total Protein Albumin Lipase Urine Color Urine Appearance Urine pH Ur Specific [place] Urine Protein Urine Glucose (UA) Urine Ketones Urine Blood Urine Nitrite Ur Leukocyte Esterase Urine RBC Urine WBC Ur Squamous Epith Cells Amorphous Sediment Urine Bacteria Granular Casts Urine Mucus COVID-19 (DENG) Negative COVID-19 Clin Com See Note Influenza Type A (PCR) Influenza Type B (PCR) RSV RNA Qual (PCR) SARS-CoV-2 RNA (RT-PCR) 02/07/22 02/07/22 04:25 05:12 MCV MCH MCHC RDW Plt Count MPV Immature Gran % (Auto) Neut % (Auto) Lymph % (Auto) [place] % (Auto) Eos % (Auto) Baso % (Auto) Lymph # (Auto) [place] # (Auto) Eos # (Auto) Baso # (Auto) Abs Immat Gran (auto) Absolute Neuts (auto) Absolute Nucleated RBC Nucleated RBC % (auto) Smear Tech's Comments Anion Gap Estim Creat Clear Calc Estimated GFR Random Glucose Lactic Acid Calcium Total Bilirubin Direct Bilirubin AST ALT Alkaline Phosphatase Troponin I High Sens B-Natriuretic Peptide Total Protein Albumin Lipase Urine Color YELLOW Urine Appearance CLEAR Urine pH 6.0 Ur Specific [place] 1.020 Urine Protein 2+ H Urine Glucose (UA) NEG Urine Ketones 5 Urine Blood 1+ H Urine Nitrite NEG Ur Leukocyte Esterase NEG Urine RBC 0-2 Urine WBC 0-2 Ur Squamous Epith Cells NONE Amorphous Sediment 1+ Urine Bacteria NONE Granular Casts 0-2 Urine Mucus 1+ COVID-19 ([facility]ENG) COVID-19 Clin Com Influenza Type A (PCR) NEGATIVE Influenza Type B (PCR) NEGATIVE RSV RNA Qual (PCR) NEGATIVE SARS-CoV-2 RNA (RT-PCR) NEGATIVE Imaging Radiologist's Impressions: Impressions Chest X-Ray 02/07/22 05:25 IMPRESSION: Low lung volumes Bronchial wall thickening can be seen with a small airways process such as asthma or atypical/viral infection. Tibia/Fibula X-Ray 02/07/22 05:25 IMPRESSION: No acute osseous abnormality. No soft tissue gas. Venous Duplex 02/07/22 11:00 IMPRESSION: 1. No evidence for deep venous thrombosis in the visualized veins of the left lower extremity. 2. Mildly prominent left inguinal lymph nodes are nonspecific, but demonstrate overall benign features. These could be reactive. * If these findings persist or enlarge, short-term repeat targeted soft tissue ultrasound can be performed as clinically indicated to assess for change. Assessment and Plan (1) Cellulitis: Status: Acute (2) Diabetic foot ulcer: Status: Acute (3) Afib: Status: Acute Plan 71-year-old male with a past medical history of hypertension, hyperlipidemia, diabetes, CAD status post CABG, 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 1. Set sepsis possible secondary to cellulitis/bacteremia has tachypnea , leukocytosis, fever Sepsis exam completed as per ed: patient recived :[id number] mL of normal saline, vanco and Zosyn. Lactic acid normal Blood culture sent today came out to be Gram-positive cocci. Previous blood culture were Streptococcus group C during last admission. Id eval -Mri foot Started on IV vanco/Zosyn, Vanco trough 2. afib:hr rate fluctiuting ?Underlying AFib on anticoagulation continue Eliquis. he takes metoprolol will hold that. Cardio evaluation-for recurrent bacteremia Gram-positive, also heart rate fluctuating. Patient also has history of endocarditis please see above. 3. thombocytopenia : Probably chronic, fluctuating platelets level. Will continue to monitor. 4. dm:fs 140-160. fs with coverage 5. HLP: added atorvastatin. 6. Hypertension: Blood pressure is acceptable Hold lisinopril due to HUGO. 7. HUGO: Patient received fluid in the ED, Discussed with nephrology will add gentle hydration Monitor BMP dvt prophylax:west Above management discussed with patient in detail length he understand and in agreement with the above plan, time spent 70 minute and patient full code. Due to multiple issues including sepsis, cellulitis, HUGO, bacteremia patient may benefit from 2 midnight stay. Quality Stroke Does the patient have a stroke diagnosis?: No VTE Prior VTE?: No VTE Risk Level:: Medical - moderate - high VTE Device Contraindication: N/A - Device Ordered VTE Drug Contraindication: N/A - Med Ordered
[2022-02-07] MEDS: Lactated Ringers 1,000 ML 70 ML IVCONT (17:49)
[2022-02-07] MEDS: Tamsulosin HCL 0.4 MG CAPSULE PO (17:49)
[2022-02-07] MEDS: 0.9 % Sodium Chloride Flush 3 ML SYRINGE IVFLUSH ×2 (17:49→20:34)
[2022-02-07] MEDS: Atorvastatin Calcium 80 MG TABLET PO (20:33)
[2022-02-07] MEDS: Docusate Sodium 100 MG CAPSULE PO (20:33)
[2022-02-07] MEDS: Ezetimibe 10 MG TABLET PO (20:33)
--- NOTE | 2022-02-08 01:21 | CONS_ITS ---
DATE OF SERVICE: REASON FOR CONSULTATION: Consult requested by the ER team to evaluate and help in management of patient with acute kidney injury. HISTORY OF PRESENT ILLNESS: The patient is a 71-year-old male with past medical history of hypertension, history of type 2 diabetes mellitus, coronary artery disease status post CABG, history of AVR, history of endocarditis in the past, chronic kidney disease stage 3, followed up in our office, who presented to the hospital with complaints of fever. The patient also had weakness and lethargy and a temperature of 101 degrees Fahrenheit. He had increased redness in the left lower extremity and discomfort in the goel area. He did not have any injury to his legs. He was evaluated in the ER and was septic and was given a significant amount of IV fluids with improvement of his overall condition. His creatinine was 1.55 and hence renal consultation has been requested. He did also receive vanco and Zosyn in the ER. He denies using any nonsteroidal anti-inflammatory agents. His p.o. intake has been on the low side. He denies any diarrhea. REVIEW OF SYSTEMS: As noted above. Other system review negative. FAMILY HISTORY: Father due to emphysema. Mother had cardiovascular disease. PAST MEDICAL HISTORY: History of atrial fibrillation, history of chronic kidney disease stage 3 at baseline, followed up in our office looks like he sees Dr. Alvarez. History of coronary artery disease, type 2 diabetes mellitus with diabetic foot ulcers, endocarditis of the aortic valve. Essential hypertension. Hemorrhage of the gastrointestinal tract. History of dialysis in the past. Heparin-induced thrombocytopenia. Hyperlipidemia, hypomagnesemia, hypothyroidism. Persistent atrial fibrillation. Pulmonary nodule. PAST SURGICAL HISTORY: Cardiac catheterization, lung biopsy, maze procedure, aortic valve replacement, bioprosthetic valve. Coronary artery bypass grafting and foot surgery. SOCIAL HISTORY: Patient lives with spouse. Does not drink alcohol. Is a former smoker. Denies using drugs. ALLERGIES: HEPARIN, ACETAMINOPHEN, INSULIN, SULFA. HOME MEDICATIONS: Apixaban, atorvastatin, Colace, ezetimibe, furosemide 40 mg daily, Zosyn, vancomycin, levothyroxine, magnesium oxide, metoprolol, omeprazole, and Flomax. PHYSICAL EXAMINATION: GENERAL: Patient is resting in the ER bed. Awake, alert, oriented x3. VITAL SIGNS: Blood pressure is 131/40, pulse 67, temperature at 99.3 degree Fahrenheit. HEENT: Pupils equal bilaterally to light. No jugular venous distention is noted NECK: Supple. Mucosa dry. There is no scleral icterus or conjunctival congestion. CARDIOVASCULAR: S1, S2 without rub or murmur. RESPIRATORY: Air entry decreased in the bases. No crepitation or rhonchi is noted. ABDOMEN: Soft, obese. Bowel sounds normal. EXTREMITIES: Chronic changes with redness in the left lower extremity. LABORATORY DATA: Labs done today, WBC 14.4, hemoglobin 9.4, hematocrit 35, platelets 132. Sodium 134, potassium 4.1, chloride 104, CO2 19, BUN 31, creatinine 1.55. Estimated GFR 211. Urinalysis shows yellow urine clear, specific gravity 1.020, pH 6.0. IMPRESSION: 1. 71-year-old male with acute kidney injury. Patient likely to have prerenal azotemia. He was clinically volume depleted. He was on diuretic, Lasix which could have also contributed to his renal insufficiency. Other possibilities include infection induced renal hypoperfusion. He has a history of BPH and is on Flomax and if renal function does not improve with hydration, we need to rule out obstruction. In the absence of hematuria/pyuria, I doubt the patient has acute GN/interstitial disease. 2. CKD stage 3 at baseline in the setting of longstanding hypertension, diabetes, possible renovascular disease. 3. Cellulitis of the lower extremity. 4. Coronary artery disease. 5. 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 6. Mild metabolic acidosis with non-anion gap type. RECOMMENDATION: At this juncture, I recommend spot urine for electrolytes, protein and creatinine. I recommend giving intravenous fluids with lactated Ringer's solution at 75 mL/h. I recommend holding off on the Lasix for now. The patient is going to be on vanco and Zosyn and I recommend following Vanco and Zosyn level closely. If renal function continues to worsen, we need to do a renal ultrasound on this patient. The patient has mild metabolic acidosis. We will watch the bicarb level and add sodium bicarb if needed in a.m. Thank you for allowing me to participate in medical management of the patient. MD ERENDIRA Bateman/RYNEL / [phone]
[2022-02-08 03:37] VITALS: BP 149/65; PULSE 71; RESP 18; TEMP 37.3; O2SAT 97
[2022-02-08] MEDS: Piperacillin Sodium/Tazobactam 3.375 GM in 0.9 % Sodium Chloride 50 ML IV ×4 (06:20→21:49)
[2022-02-08] MEDS: Levothyroxine Sodium 50 MCG TABLET PO (06:22)
[2022-02-08] MEDS: Omeprazole 20 MG CAPSULE.DR PO ×2 (06:22→17:06)
[2022-02-08 06:49] LABS: Creatinine Clr Calc Pharmacy 50.1; Estimated Glomerular Filt Rate 45
[2022-02-08 07:41] VITALS: BP 123/60; PULSE 72; RESP 20; TEMP 36.9; O2SAT 97
[2022-02-08] MEDS: vancomycin HCL 1,250 MG in 0.9 % Sodium Chloride 250 ML 166.67 MG IV (08:00)
--- NOTE | 2022-02-08 08:12 | P.PNIM_ITS ---
Subjective Subjective Date of Service: 02/08/22 Interval History: Gram-positive bacteremia recurrent. Left leg cellulitis Review of Systems Leg erythema seems to be improving, left side foot ulcer also seems to be mostly dry Denies any chest pain or shortness of breath or any fever or chills or night Physical Exam Vital Signs: Vital Signs: Last Vital Signs Temp 98.4 F 02/08/22 07:41 Pulse 72 02/08/22 07:41 Resp 20 02/08/22 07:41 BP 123/60 02/08/22 07:41 Pulse Ox 97 02/08/22 07:41 BMI result Body Mass Index 28.5 Appearance: Alert.? Oriented X3. cvs: irregular rythem, [id number]. res:fair air netry,no rales or wheezing. abd: no rebound or guarding ,nt, bs present. ext pulses present , no cyanosis right leg swleling and bruise ,erythma ,mild foot swelling also, right leg warm than left. left foot bottom -had ulcer (? chronic) -no discharge ,foot swelling /mild eerythema neuro: axo3 , nonfocal. Objective Data Active Medications Apixaban (Apixaban 5 Mg Tablet) 5 mg PO BID [facility] Last Admin: 02/07/22 20:33 Dose: 5 mg Documented by: EDDI Atorvastatin Calcium (Atorvastatin Calcium 80 Mg Tablet) 80 mg PO BEDTIME [facility] Last Admin: 02/07/22 20:33 Dose: 80 mg Documented by: EDDI Docusate Sodium (Docusate Sodium 100 Mg Capsule) 100 mg PO BID [facility] Last Admin: 02/07/22 20:33 Dose: 100 mg Documented by: EDDI Ezetimibe (Ezetimibe 10 Mg Tablet) 10 mg PO BEDTIME [facility] Last Admin: 02/07/22 20:33 Dose: 10 mg Documented by: EDDI Furosemide (Furosemide 40 Mg Tablet) 40 mg PO DAILY [facility]; Protocol Last Admin: 02/07/22 10:52 Dose: 40 mg Documented by: MARIANNE Piperacillin Sod/Tazobactam (Sod 3.375 gm/ Sodium Chloride) 50 mls @ 100 mls/hr IV Q6H [facility] Last Infusion: 02/08/22 06:57 Dose: 0 mls/hr Documented by: EDDI Vancomycin HCl 1,250 mg/ (Sodium Chloride) 250 mls @ 166.667 mls/hr IV Q24H [facility] Lactated Ringer's (Lr) 1,000 mls @ 70 mls/hr IVCONT .[id number] [facility] Last Admin: 02/07/22 17:49 Dose: 70 mls/hr Documented by: JESSIE Insulin Glargine (Insulin Glargine,Hum.Rec.Anlog 100 Unit/Ml 10 Ml Vial) 22 unit SUBCUT DAILY [facility] Last Admin: 02/07/22 11:51 Dose: 22 unit Documented by: MARIANNE Levothyroxine Sodium (Levothyroxine Sodium 50 Mcg Tablet) 50 mcg PO Q2D@0630 [facility] Last Admin: 02/08/22 06:22 Dose: 50 mcg Documented by: EDDI Magnesium Oxide (Magnesium Oxide 400 Mg Tablet) 400 mg PO TID [facility] Last Admin: 02/07/22 20:33 Dose: 400 mg Documented by: EDDI Omeprazole (Omeprazole 20 Mg Capsule.) 20 mg PO BID@0630,1630 [facility] Last Admin: 02/08/22 06:22 Dose: 20 mg Documented by: EDDI Pharmacy Consult (Consult Rx Perform Med Rec) 1 each MISCELLANE ONCE PRN PRN Reason: Consult order Pharmacy Consult (Consult Rx Vancomycin Dosing) 1 each MISCELLANE DAILY PRN PRN Reason: Consult order Sodium Chloride (0.9 % Sodium Chloride Flush 3 Ml Syringe) 3 ml IVFLUSH QSHIFT [facility] Last Admin: 02/07/22 20:34 Dose: 3 ml Documented by: EDDI Tamsulosin HCl (Tamsulosin Hcl 0.4 Mg Capsule) 0.4 mg PO DAILY@1700 [facility] Last Admin: 02/07/22 17:49 Dose: 0.4 mg Documented by: JESSIE Labs CBC & Chem 7: 02/07/22 04:20 02/08/22 06:09 Labs: Laboratory Results - last 24 hr 02/08/22 06:09 Estim Creat Clear Calc 50.1 Estimated GFR 45 Microbiology Microbiology Results: Microbiology 02/07/22 04:20 Blood Culture - Preliminary Blood - Venous Prelim: GPC Gram Stain only 02/07/22 04:20 Blood Culture - Preliminary Blood - Venous Prelim: GPC Gram Stain only Assessment and Plan (1) HUGO (acute kidney injury): Status: Acute (2) Persistent atrial fibrillation: Status: Acute Plan 71-year-old male with a past medical history of hypertension, hyperlipidemia, diabetes, CAD status post CABG, 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 1. possible sepsis secondary to cellulitis/bacteremia tachypnea and fever resolved , leukocytosis. Blood culture - Gram-positive cocci. Previous blood culture were Streptococcus group C during last admission. Id eval -Mri foot done -report pending Started on IV vanco/Zosyn, Vanco trough 2. afib:hr rate fluctiuting ?Underlying AFib on anticoagulation continue Eliquis. hold metoprolol will hold that. Cardio evaluation-for recurrent bacteremia Gram-positive, also heart rate fl uctuating. Patient also has history of endocarditis please see above. 3. thombocytopenia :? Probably chronic, fluctuating platelets level.? Will continue to monitor. 4. dm:fs 146-200. fs with coverage 5. HLP: atorvastatin. 6. Hypertension:? Blood pressure is acceptable Hold lisinopril due to HUGO. 7. HUGO: Patient received fluid in the ED, Discussed with nephrology will add gentle hydration Monitor BMP dvt prophylax:eliquis Quality Stroke Does the patient have a stroke diagnosis?: No VTE Prior VTE?: No VTE Risk Level:: Medical - moderate - high VTE Device Contraindication: N/A - Device Ordered VTE Drug Contraindication: N/A - Med Ordered
--- NOTE | 2022-02-08 08:49 | MHC.CM.PN ---
CM met with Patient at bedside and addressed IMM with him, providing him with the original and placing a copy on the chart. Patient lives in a house with his /HCP/Lo and he required no DME nor services [employer]. Home/no services is the goal and CM has initiated and will follow for dc planning. Patient has received Pfizer/Covid vax X3 and his PCP is DR. Nicolás Rai.
--- NOTE | 2022-02-08 09:26 | HE.PHANOTE ---
cr stable, no changes, trough 02/09@0600
--- NOTE | 2022-02-08 09:37 | PM.CNCAR ---
History of Present Illness History of Present Illness Date of Service: 02/08/22 Chief complaint: afib cellulitis Narrative: This is a cardiology consultation due to recurrent bacteremia. Patient is well known to us. Current admission is because of generalized weakness. He states that he was sitting in his rocking chair and then bumped his legs and hence has some bruise in his leg. Some swelling in his extremities to. Nonspecific weakness, fatigue and subjective chills. In this context, he was admitted for further care. Blood cultures are positive and hence we have been asked to see him for further evaluation in that regard. From the cardiac standpoint, he has chronic right heart failure, bioprosthetic aortic valve as well as coronary artery bypass. He has chronic atrial fibrillation but at this point, he seems to converted to sinus rhythm. Longstanding diabetes that is not well controlled and he also has hypertension and dyslipidemia. In the recent times, he has really not had any clear cardiac symptoms. He continues to deny angina or anything else in that regard. Review of Systems Review of Systems: Yes all other systems are reviewed and are negative Constitutional: Constitutional: Reports as per HPI, Reports lethargy, Reports malaise and Reports weakness Eyes: Eyes: Reports as per HPI ENT: Reports as per HPI Cardiovascular: Cardiovascular: Reports as per HPI, Denies acrocyanosis, Denies cool extremities, Denies chest pain, Denies leg edema, Denies lightheadedness, Denies palpitations and Denies dyspnea Respiratory: Respiratory: Reports as per HPI, Reports no additional respiratory complaints and Denies dyspnea Gastrointestinal: Gastrointestinal: Reports as per HPI and Reports no additional gastrointestinal complaints Genitourinary: Genitourinary: Reports no additional male genitourinary complaints and Reports as per HPI Musculoskeletal: Musculoskeletal: Reports no additional musculoskeletal complaints and Reports as per HPI Integumentary/Breasts: Skin/Breast: Reports system reviewed and no additional complaints, except as docu Neurologic: Reports system reviewed and no additional complaints, except as documented, Reports as per HPI and Reports weakness Psychiatric: Psychiatric: Reports no additional psychiatric complaints and Reports as per HPI Endocrine: Endocrine: Reports no additional endocrine complaints, Reports as per HPI and Denies palpitations Hematologic/Lymphatic: Hematologic/Lymphatic: Reports no additional hematologic/lymphatic complaints and Reports as per HPI Allergic/Immunologic: Allergic/Immunologic: Reports no additional allergic/immunologic complaints and Reports as per HPI [facility] Past Medical History Medical History (Updated 02/08/22 @ 09:48 by Cody Grewal MD) Atrial fibrillation Chronic kidney disease, unspecified Coronary artery disease Diabetic foot ulcer Endocarditis of aortic valve Essential hypertension Hemorrhage of gastrointestinal tract, unspecified History of hemodialysis HIT (heparin-induced thrombocytopenia) (~2018) Hyperlipidemia, unspecified Hypomagnesemia Hypothyroidism Persistent atrial fibrillation Pulmonary nodule Type 2 diabetes mellitus with unspecified complications Family History Family History Father Emphysema, unspecified Mother Cardiovascular disease Family history: reviewed and not pertinent Surgical History Surgical History (Updated 02/08/22 @ 09:48 by Cody Grewal MD) History of cardiac catheterization (~11/17/18) History of lung biopsy (~02/14/21) History of maze procedure Status post aortic valve replacement with bioprosthetic valve (~01/2019) Status post coronary artery bypass graft (~01/2019) Status post foot surgery Social History Social History Household Members: Spouse Housing: House Do you presently have visiting nurse or other home services: No Alcohol intake: never Patient Tobacco Use Status: Former Tobacco user Advance Directives Date on File: 06/27/20 service: No Current occupational status: retired Meds Allergies Allergy/AdvReac Type Severity Reaction Status Date / Time Heparin Analogues Allergy Severe HIT Verified 12/10/21 08:14 [HEPARIN ANALOGUES] acetaminophen [From TYLENOL] Allergy Unknown UNKNOWN Verified 12/10/21 08:14 insulin glargine Allergy Unknown Toujeo- Verified 12/10/21 08:14 diarrhea Sulfa (Sulfonamide Allergy Unknown HIVES Verified 12/10/21 08:14 Antibiotics) [SULFA (SULFONAMIDE ANTIBIOTICS)] Active Medications: Current Medications Apixaban (Apixaban 5 Mg Tablet) 5 mg PO BID [facility] Last Admin: 02/07/22 20:33 Dose: 5 mg Documented by: Atorvastatin Calcium (Atorvastatin Calcium 80 Mg Tablet) 80 mg PO BEDTIME [facility] Last Admin: 02/07/22 20:33 Dose: 80 mg Documented by: Dextrose (Dextrose 50 % 25 Gm/50 Ml Syringe) 25 gm IVPUSH Q15M PRN; Protocol PRN Reason: per Hypoglycemia Standing Ord. Docusate Sodium (Docusate Sodium 100 Mg Capsule) 100 mg PO BID [facility] Last Admin: 02/07/22 20:33 Dose: 100 mg Documented by: Ezetimibe (Ezetimibe 10 Mg Tablet) 10 mg PO BEDTIME [facility] Last Admin: 02/07/22 20:33 Dose: 10 mg Documented by: Furosemide (Furosemide 40 Mg Tablet) 40 mg PO DAILY [facility]; Protocol Last Admin: 02/07/22 10:52 Dose: 40 mg Documented by: Glucose (Glucose Gel 15 Gm Gel..Gram.) 15 gm PO Q15M PRN; Protocol PRN Reason: per Hypoglycemia Standing Ord. Piperacillin Sod/Tazobactam (Sod 3.375 gm/ Sodium Chloride) 50 mls @ 100 mls/hr IV Q6H [facility] Last Infusion: 02/08/22 06:57 Dose: Infused Documented by: Vancomycin HCl 1,250 mg/ (Sodium Chloride) 250 mls @ 166.667 mls/hr IV Q24H [facility] Lactated Ringer's (Lr) 1,000 mls @ 70 mls/hr IVCONT .[id number] [facility] Last Admin: 02/07/22 17:49 Dose: 70 mls/hr Documented by: Insulin Glargine (Insulin Glargine,Hum.Rec.Anlog 100 Unit/Ml 10 Ml Vial) 22 unit SUBCUT DAILY [facility] Last Admin: 02/07/22 11:51 Dose: 22 unit Documented by: Insulin Human Lispro (Insulin Lispro 100 Unit/Ml 3 Ml Vial) 0 unit SUBCUT QIDACHS [facility]; Protocol Levothyroxine Sodium (Levothyroxine Sodium 50 Mcg Tablet) 50 mcg PO Q2D@0630 [facility] Last Admin: 02/08/22 06:22 Dose: 50 mcg Documented by: Magnesium Oxide (Magnesium Oxide 400 Mg Tablet) 400 mg PO TID [facility] Last Admin: 02/07/22 20:33 Dose: 400 mg Documented by: Omeprazole (Omeprazole 20 Mg Capsule.) 20 mg PO BID@0630,1630 [facility] Last Admin: 02/08/22 06:22 Dose: 20 mg Documented by: Pharmacy Consult (Consult Rx Perform Med Rec) 1 each MISCELLANE ONCE PRN PRN Reason: Consult order Pharmacy Consult (Consult Rx Vancomycin Dosing) 1 each MISCELLANE DAILY PRN PRN Reason: Consult order Sodium Chloride (0.9 % Sodium Chloride Flush 3 Ml Syringe) 3 ml IVFLUSH QSHIFT [facility] Last Admin: 02/07/22 20:34 Dose: 3 ml Documented by: Tamsulosin HCl (Tamsulosin Hcl 0.4 Mg Capsule) 0.4 mg PO DAILY@1700 [facility] Last Admin: 02/07/22 17:49 Dose: 0.4 mg Documented by: Home Medications Medication Instructions Recorded Confirmed Last Taken Type atorvastatin 80 mg tablet 80 mg PO BEDTIME 07/18/20 02/07/22 02/06/22 History insulin glargine 100 unit/mL (3 22 unit SUBCUT DAILY 07/18/20 02/07/22 02/06/22 History mL) subcutaneous pen levothyroxine 50 mcg tablet 50 mcg PO Q2D@0630 07/18/20 02/07/22 02/06/22 History magnesium oxide 400 mg (241.3 mg 400 mg PO TID 07/18/20 02/07/22 02/06/22 History magnesium) tablet insulin lispro 100 unit/mL See Protocol SUBCUT QIDACHS 07/26/20 02/07/22 02/06/22 History subcutaneous pen (Humalog KwikPen (U-100) Insulin) tamsulosin 0.4 mg capsule (Flomax) 0.4 mg PO DAILY@1700 07/26/20 02/07/22 02/06/22 History omeprazole 20 mg capsule,delayed 20 mg PO BID@0630,1630 01/09/21 02/07/22 02/06/22 History release blood sugar diagnostic #10 ea 02/01/21 12/10/21 02/06/22 History blood-glucose meter #1 ea 02/01/21 12/10/21 02/06/22 History pen needle, diabetic 32 gauge x #50 ea 02/01/21 12/10/21 02/06/22 History docusate sodium 100 mg capsule 100 mg PO BID 02/07/22 02/07/22 02/06/22 History (Stool Softener) metoprolol succinate 25 mg 25 mg PO BEDTIME 02/07/22 02/07/22 02/06/22 History tablet,extended release 24 hr (Toprol XL) Physical Exam Vital Signs: Vital Signs: Last Vital Signs Temp 98.4 F 02/08/22 07:41 Pulse 72 02/08/22 07:41 Resp 20 02/08/22 07:41 BP 123/60 02/08/22 07:41 Pulse Ox 97 02/08/22 07:41 BMI result Body Mass Index 28.5 Const: General: comfortable, no acute distress and ill appearing Orientation/consciousness: patient oriented x3 HEENT: Other: Unremarkable Head: Yes normal to inspection Neck: Neck: Yes normal visual inspection Chest: Chest palpation & inspection: normal inspection of the chest Resp: Auscultation: clear to auscultation bilaterally Cardio: Palpation: normal PMI Heart sounds: S1 normal heart sound present, S2 normal heart sound present, no gallops, Murmur heart sound present systolic early, II/ and at the right sternal border and no rubs GI: Palpation (GI): Soft to palpation Back/Spine/Pelvis: Other: unremarkable Skin: General skin exam: no rashes or lesions noted Neuro: General: patient oriented x3 Extrem: General: Yes pedal edema (1+) and Yes other (scabbing middle of both legs) Psych: Mental Status: mental status grossly normal Objective Labs and Meds Result diagrams: 02/07/22 04:20 02/08/22 06:09 Lab results: Laboratory Results - last 24 hr 02/08/22 06:09 Creatinine 1.53 H Estim Creat Clear Calc 50.1 Estimated GFR 45 ECG Interpretation: EKG shows sinus tachycardia with PVCs. Old inferior infarct. Imaging Radiologist's impression: Impressions Venous Duplex 02/07/22 11:00 IMPRESSION: 1. No evidence for deep venous thrombosis in the visualized veins of the left lower extremity. 2. Mildly prominent left inguinal lymph nodes are nonspecific, but demonstrate overall benign features. These could be reactive. * If these findings persist or enlarge, short-term repeat targeted soft tissue ultrasound can be performed as clinically indicated to assess for change. Assessment and Plan (1) Bacteremia: Status: Acute (2) Status post aortic valve replacement with bioprosthetic valve: Status: Acute (3) Persistent atrial fibrillation: Status: Acute (4) Chronic right heart failure: Status: Acute Plan Blood cultures in 1 bottle reveal Streptococcus group C. Other blood culture reported as gram-positive cocci by gram stain only. Final result is still pending. He has had group C Streptococcus in August 2021 as well. His last transthoracic echocardiogram was in August last year. At that time LVEF was 55-60%. Bioprosthetic valve thought to have normal function. Due to recurrent bacteremia, may need transesophageal echocardiogram. Will check with Infectious Disease and hospitalist service. Otherwise, with regard to his chronic concerns like atrial fibrillation, continue anticoagulation. He does not have any anginal-type symptoms related to his coronary disease. Heart failure seems stable. Continue diuretics. Will follow up with you. Procedures Date of Service Date of Service: 02/08/22
[2022-02-08] MEDS: Docusate Sodium 100 MG CAPSULE PO ×2 (09:47→20:23)
[2022-02-08] MEDS: Insulin Glargine,Hum.rec.anlog 100 UNIT/ML 10 ML VIAL 22 UNIT SUBCUT (09:47)
[2022-02-08] MEDS: Apixaban 5 MG TABLET PO ×2 (09:47→20:24)
[2022-02-08] MEDS: Furosemide 40 MG TABLET PO (09:47)
[2022-02-08] MEDS: Magnesium Oxide 400 MG TABLET PO ×3 (09:47→20:24)
[2022-02-08] MEDS: 0.9 % Sodium Chloride Flush 3 ML SYRINGE IVFLUSH ×3 (09:48→20:24)
[2022-02-08] MEDS: Lactated Ringers 1,000 ML 70 ML IVCONT (10:41)
[2022-02-08 12:00] VITALS: BP 114/59; PULSE 85; RESP 20; TEMP 36.8; O2SAT 98
[2022-02-08] MEDS: Insulin Lispro 100 UNIT/ML 3 ML VIAL SUBCUT ×3 (12:11→21:44)
--- NOTE | 2022-02-08 13:29 | PM.PNNEP ---
Subjective Subjective Date of Service: 02/08/22 Interval history: Pt feels better Gram-positive bacteremia recurrent. Left leg cellulitis Physical Exam Vital Signs: Vital Signs: Last Vital Signs Temp 98.2 F 02/08/22 12:00 Pulse 85 02/08/22 12:00 Resp 20 02/08/22 12:00 BP 114/59 L 02/08/22 12:00 Pulse Ox 98 02/08/22 12:00 BMI result Body Mass Index 28.5 Const General:?comfortable, no acute distress and ill appearing Orientation/consciousness:?patient oriented x3 HEENT Other: Unremarkable Head:?Yes normal to inspection Neck Neck:?Yes normal visual inspection Chest Chest palpation & inspection:?normal inspection of the chest Resp Auscultation:?clear to auscultation bilaterally Cardio Palpation:?normal PMI Heart sounds:?S1 normal heart sound present, S2 normal heart sound present, no gallops, Murmur heart sound present systolic early, II/ and at the right sternal border and no rubs GI Palpation (GI):?Soft to palpation Back/Spine/Pelvis Other: unremarkable Skin General skin exam:?no rashes or lesions noted Neuro General:?patient oriented x3 Extrem General:?Yes pedal edema (1+) and Yes other (scabbing middle of both legs) Psych Mental Status:?mental status grossly normal Objective Data Labs CBC & Chem 7: 02/07/22 04:20 02/08/22 06:09 Labs: Laboratory Results - last 24 hr 02/08/22 06:09 Creatinine 1.53 H Estim Creat Clear Calc 50.1 Estimated GFR 45 Microbiology Microbiology Results: Microbiology 02/07/22 04:20 Blood - Venous Blood Culture - Preliminary Streptococcus group c 02/07/22 04:20 Blood - Venous Blood Culture - Preliminary Prelim: GPC Gram Stain only Procedures Date of Service Date of Service: 02/08/22 Assessment & Plan Assessment and plan (1) HUGO (acute kidney injury): Status: Acute Plan 1. 71-year-old male with acute kidney injury. ? Patient likely to have prerenal azotemia.? He was clinically volume depleted.? He was on diuretic, Lasix which could have also contributed to his renal insufficiency.? In the absence of hematuria/pyuria, I doubt the patient has acute GN/interstitial disease. 2. CKD stage 3 at baseline in the setting of longstanding hypertension, diabetes, possible renovascular disease. 3. Cellulitis of the lower extremity. 4. Coronary artery disease. 5. 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 6. Mild metabolic acidosis with non-anion gap type. ? RECOMMENDATION:? Continue intravenous fluids at 75 mL/h.? I recommend holding off on the Lasix for now. ? The patient is going to be on vanco and Zosyn and I recommend following Vanco level closely. ? F/u renal func and Lytes ? Thank you for allowing me to participate in medical management of the patient. Time Spent With Patient Time: Total time spent is greater than 50% in coordination of care (as documented) at patient's floor/unit and/or counseling patient: Progress Note: Quality Stroke Does the patient have a stroke diagnosis?: No
[2022-02-08 15:35] VITALS: BP 140/69; PULSE 64; RESP 18; TEMP 37.1; O2SAT 94
[2022-02-08] MEDS: Tamsulosin HCL 0.4 MG CAPSULE PO (17:06)
[2022-02-08 19:57] VITALS: BP 165/76; PULSE 77; RESP 20; TEMP 37.9; O2SAT 94
[2022-02-08] MEDS: Ezetimibe 10 MG TABLET PO (20:23)
[2022-02-08] MEDS: Atorvastatin Calcium 80 MG TABLET PO (20:23)
[2022-02-09] VITALS (7 sets, daily range): BP systolic 111–154; BP diastolic 58–79; PULSE 57–88; RESP 14–20; TEMP 36.6–37.1; O2SAT 94–98
[2022-02-09] MEDS: Lactated Ringers 1,000 ML 70 ML IVCONT (00:35)
[2022-02-09] MEDS: Omeprazole 20 MG CAPSULE.DR PO ×2 (05:39→16:38)
[2022-02-09] MEDS: Piperacillin Sodium/Tazobactam 3.375 GM in 0.9 % Sodium Chloride 50 ML IV ×4 (05:40→22:45)
[2022-02-09 06:29] LABS: Hematocrit 29.9 % (42.0-52.0); Hemoglobin 9.7 g/dl (14.0-18.0); Mean Corpuscular HGB Conc 32.4 g/dl (31.0-36.0); Mean Corpuscular Hemoglobin 28.6 pg (27.0-33.0); Mean Corpuscular Volume 88.2 fL (80.0-98.0); Mean Platelet Volume 10.9 fL (9.4-12.4); Platelet Count 116 X10*3/uL (160-400); Red Blood Count 3.39 X10*6/uL (4.60-5.80); Red Cell Distribution Width 16.5 % (11.0-16.0); White Blood Count 6.3 X10*3/uL (4.8-10.8)
[2022-02-09 06:52] LABS: Vancomycin Trough 16.5 mcg/mL (10.0-20.0)
[2022-02-09 06:54] LABS: Creatinine Clr Calc Pharmacy 58.9; Estimated Glomerular Filt Rate 54
--- NOTE | 2022-02-09 07:08 | HE.PHANOTE ---
Addendum entered by Preethi Garcia [facility] 02/09/22 07:12: changed dose to start @1000, to delay a bit, next level will be 02/10@0800 Original Note: Patients level from this morning was 16.5, decreased dose to 1 gm q24 hours, predicted auc 434 and predicted trough 13.2, next level 02/10@0600
[2022-02-09 07:22] LABS: Anion Gap 12 (12-20); Blood Urea Nitrogen 27 mg/dL (9-16); Calcium 7.8 mg/dL (8.4-10.2); Carbon Dioxide 23 mmol/L (22-29); Chloride 103 mmol/L (96-108); Creatinine Clr Calc Pharmacy 57.6; Estimated Glomerular Filt Rate 53; Glucose Random 153 mg/dL (60-115); Potassium 3.5 mmol/L (3.3-5.1); Sodium 134 mmol/L (135-145)
--- NOTE | 2022-02-09 09:03 | P.PNIM_ITS ---
Subjective Subjective Date of Service: 02/09/22 Interval History: Strep group C bacteremia recurrent.? Left leg cellulitis, hugo Review of Systems Seems improving, leg erythema also improving. Denies any chest pain or shortness of breath or abdominal pain or fever chills or cough or phlegm. Physical Exam Vital Signs: Vital Signs: Last Vital Signs Temp 98.7 F 02/09/22 04:00 Pulse 70 02/09/22 04:00 Resp 20 02/09/22 04:00 BP 138/64 02/09/22 04:00 Pulse Ox 98 02/09/22 04:00 BMI result Body Mass Index 28.5 Appearance: Alert.? Oriented X3. cvs: irregular rythem, [id number]. res:fair air netry,no rales or wheezing. abd: no rebound or guarding ,nt, bs present. ext pulses present , no cyanosis right leg swleling and bruise ,erythema/swelling improving left foot bottom -had ulcer (? chronic) -no discharge . neuro: axo3 , nonfocal. Objective Data Active Medications Apixaban (Apixaban 5 Mg Tablet) 5 mg PO BID [facility] Last Admin: 02/08/22 20:24 Dose: 5 mg Documented by: EDDI Atorvastatin Calcium (Atorvastatin Calcium 80 Mg Tablet) 80 mg PO BEDTIME [facility] Last Admin: 02/08/22 20:23 Dose: 80 mg Documented by: EDDI Dextrose (Dextrose 50 % 25 Gm/50 Ml Syringe) 25 gm IVPUSH Q15M PRN; Protocol PRN Reason: per Hypoglycemia Standing Ord. Docusate Sodium (Docusate Sodium 100 Mg Capsule) 100 mg PO BID [facility] Last Admin: 02/08/22 20:23 Dose: 100 mg Documented by: EDDI Ezetimibe (Ezetimibe 10 Mg Tablet) 10 mg PO BEDTIME [facility] Last Admin: 02/08/22 20:23 Dose: 10 mg Documented by: EDDI Furosemide (Furosemide 40 Mg Tablet) 40 mg PO DAILY [facility]; Protocol Last Admin: 02/08/22 09:47 Dose: 40 mg Documented by: SUPA Glucose (Glucose Gel 15 Gm Gel..Gram.) 15 gm PO Q15M PRN; Protocol PRN Reason: per Hypoglycemia Standing Ord. Piperacillin Sod/Tazobactam (Sod 3.375 gm/ Sodium Chloride) 50 mls @ 100 mls/hr IV Q6H [facility] Last Infusion: 02/09/22 08:44 Dose: 100 mls/hr Documented by: EFRAIN Lactated Ringer's (Lr) 1,000 mls @ 70 mls/hr IVCONT .[id number] [facility] Last Admin: 02/09/22 00:35 Dose: 70 mls/hr Documented by: EDDI Vancomycin HCl 1,000 mg/ (Sodium Chloride) 270 mls @ 270 mls/hr IV Q24H [facility] Insulin Glargine (Insulin Glargine,Hum.Rec.Anlog 100 Unit/Ml 10 Ml Vial) 22 unit SUBCUT DAILY [facility] Last Admin: 02/08/22 09:47 Dose: 22 unit Documented by: SUPA Insulin Human Lispro (Insulin Lispro 100 Unit/Ml 3 Ml Vial) 0 unit SUBCUT QI DACHS [facility]; Protocol Last Admin: 02/09/22 07:29 Dose: Not Given Documented by: EFRAIN Non-Admin Reason: No Insulin Coverage Levothyroxine Sodium (Levothyroxine Sodium 50 Mcg Tablet) 50 mcg PO Q2D@0630 [facility] Last Admin: 02/08/22 06:22 Dose: 50 mcg Documented by: EDDI Magnesium Oxide (Magnesium Oxide 400 Mg Tablet) 400 mg PO TID [facility] Last Admin: 02/08/22 20:24 Dose: 400 mg Documented by: EDDI Omeprazole (Omeprazole 20 Mg Capsule.Dr) 20 mg PO BID@0630,1630 [facility] Last Admin: 02/09/22 05:39 Dose: 20 mg Documented by: EDDI Pharmacy Consult (Consult Rx Perform Med Rec) 1 each MISCELLANE ONCE PRN PRN Reason: Consult order Pharmacy Consult (Consult Rx Vancomycin Dosing) 1 each MISCELLANE DAILY PRN PRN Reason: Consult order Sodium Chloride (0.9 % Sodium Chloride Flush 3 Ml Syringe) 3 ml IVFLUSH QSHIFT [facility] Last Admin: 02/08/22 20:24 Dose: 3 ml Documented by: EDDI Tamsulosin HCl (Tamsulosin Hcl 0.4 Mg Capsule) 0.4 mg PO DAILY@1700 [facility] Last Admin: 02/08/22 17:06 Dose: 0.4 mg Documented by: SUPA Labs CBC & Chem 7: 02/09/22 06:06 02/09/22 06:06 Labs: Laboratory Results - last 24 hr 02/09/22 02/09/22 02/09/22 06:06 06:06 06:06 MCV 88.2 MCH 28.6 MCHC 32.4 RDW 16.5 H Plt Count 116 L MPV 10.9 Absolute Nucleated RBC 0.000 Nucleated RBC % (auto) 0.0 Anion Gap Estim Creat Clear Calc 58.9 Estimated GFR 54 Random Glucose Calcium Vancomycin Trough 16.5 02/09/22 06:06 MCV MCH MCHC RDW Plt Count MPV Absolute Nucleated RBC Nucleated RBC % (auto) Anion Gap 12 Estim Creat Clear Calc 57.6 Estimated GFR 53 Random Glucose 153 H Calcium 7.8 L D Vancomycin Trough Microbiology Microbiology Results: Microbiology 02/07/22 04:20 Blood Culture - Final Blood - Venous Streptococcus group c 02/07/22 04:20 Blood Culture - Final Blood - Venous Streptococcus group c Assessment and Plan (1) Uncontrolled diabetes mellitus with hyperglycemia: Status: Acute (2) HUGO (acute kidney injury): Status: Acute (3) Afib: Status: Acute (4) Bacteremia: Status: Acute Plan 71-year-old male with a past medical history of hypertension, hyperlipidemia, diabetes, CAD status post CABG, 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 1. possible sepsis? secondary to cellulitis/bacteremia ?tachypnea and fever resolved , leukocytosis. Blood culture - Gram-positive cocci. repeat blood cultures added. Previous blood culture were Streptococcus group C during last admission. Blood culture again come back 6 Streptococcus group C sensitive to ceftriaxone. Repeat blood culture added. Denies any cough Denies any weakness or numbness. Id eval -Mri foot done -noted least focal osteomyelitis involving the proximal 4th metatarsal/Findings indicative of an infection in the forefoot. There is a superficial ulceration with sinus tract communicating with an abscess abutting the 4th metatarsal Started on IV vanco/Zosyn, Vanco trough is 16.5 today. will check with Id -for antibiotic adjustment 2. afib:hr rate fluctiuting ?Underlying AFib on anticoagulation continue Eliquis. hold metoprolol will hold that. Cardio evaluation-for recurrent bacteremia Streptococcus C, heart rate improving Cardiology recommended to start back metoprolol. NPO past midnight May need DEREK in the morning. 3. thombocytopenia :? Probably chronic, fluctuating platelets level.? Will continue to monitor. 4. dm:fs 150-200. fs with coverage 5. HLP:? atorvastatin. 6. Hypertension:? Blood pressure is acceptable Hold lisinopril due to HUGO. 7. HUGO: Patient received fluid in the ED, Seen by Nephrology, improved with hydration., continue to monitor. dvt prophylax:eliquis Need for inpatient: Streptococcus group C bacteremia recurrent, foot osteomyelitis on iv natibiotics , Quality Stroke Does the patient have a stroke diagnosis?: No VTE Prior VTE?: No VTE Risk Level:: Medical - moderate - high VTE Device Contraindication: N/A - Device Ordered VTE Drug Contraindication: N/A - Med Ordered
[2022-02-09] MEDS: Magnesium Oxide 400 MG TABLET PO ×3 (10:01→20:56)
[2022-02-09] MEDS: Apixaban 5 MG TABLET PO ×2 (10:01→20:56)
[2022-02-09] MEDS: Docusate Sodium 100 MG CAPSULE PO ×2 (10:01→20:56)
[2022-02-09] MEDS: Furosemide 40 MG TABLET PO (10:01)
[2022-02-09] MEDS: 0.9 % Sodium Chloride Flush 3 ML SYRINGE IVFLUSH ×3 (10:02→20:56)
[2022-02-09] MEDS: Insulin Glargine,Hum.rec.anlog 100 UNIT/ML 10 ML VIAL 22 UNIT SUBCUT (10:02)
[2022-02-09] MEDS: vancomycin HCL 1,000 MG in 0.9 % Sodium Chloride 250 ML 270 MG IV (10:03)
--- NOTE | 2022-02-09 11:29 | PM.PNCARD ---
Subjective Subjective Date of Service: 02/09/22 Interval history: No specific cardiac complaints like angina or shortness of breath or palpitations or in fact anything cardiac related. Review of Systems Review of Systems Yes all other systems are reviewed and are negative Constitutional: Reports as per HPI, Reports lethargy, Reports malaise and Reports weakness Eyes: Reports as per HPI Reports as per HPI Cardiovascular: Reports as per HPI, Denies acrocyanosis, Denies cool extremities, Denies chest pain, Denies leg edema, Denies lightheadedness, Denies palpitations and Denies dyspnea Respiratory: Reports as per HPI, Reports no additional respiratory complaints and Denies dyspnea Gastrointestinal: Reports as per HPI and Reports no additional gastrointestinal complaints Genitourinary: Reports no additional male genitourinary complaints and Reports as per HPI Musculoskeletal: Reports no additional musculoskeletal complaints and Reports as per HPI Skin/Breast: Reports system reviewed and no additional complaints, except as docu Reports system reviewed and no additional complaints, except as documented, Reports as per HPI and Reports weakness Psychiatric: Reports no additional psychiatric complaints and Reports as per HPI Endocrine: Reports no additional endocrine complaints, Reports as per HPI and Denies palpitations Hematologic/Lymphatic: Reports no additional hematologic/lymphatic complaints and Reports as per HPI Allergic/Immunologic: Reports no additional allergic/immunologic complaints and Reports as per HPI Physical Exam Vital Signs: Last Vital Signs Temp 98.0 F 02/09/22 08:00 Pulse 72 02/09/22 08:00 Resp 20 02/09/22 08:00 BP 127/63 02/09/22 08:00 Pulse Ox 96 02/09/22 08:00 BMI result Body Mass Index 28.5 Const General: comfortable, no acute distress and ill appearing Orientation/consciousness: patient oriented x3 HEENT Other: Unremarkable Head: Yes normal to inspection Neck Neck: Yes normal visual inspection Chest Chest palpation & inspection: normal inspection of the chest Resp Auscultation: clear to auscultation bilaterally and rhonchi Cardio Palpation: normal PMI Heart sounds: S1 normal heart sound present, S2 normal heart sound present, no gallops, Murmur heart sound present systolic early, II/ and at the right sternal border and no rubs GI Palpation (GI): Soft to palpation Back/Spine/Pelvis Other: unremarkable Skin General skin exam: no rashes or lesions noted Neuro General: patient oriented x3 Extrem General: Yes pedal edema (1+) and Yes other (scabbing middle of both legs) Psych Mental Status: mental status grossly normal Objective Labs and Meds Result diagrams: 02/09/22 06:06 02/09/22 06:06 Lab results: Laboratory Results - last 24 hr 02/09/22 02/09/22 02/09/22 06:06 06:06 06:06 WBC 6.3 RBC 3.39 L Hgb 9.7 L Hct 29.9 L MCV 88.2 MCH 28.6 MCHC 32.4 RDW 16.5 H Plt Count 116 L MPV 10.9 Absolute Nucleated RBC 0.000 Nucleated RBC % (auto) 0.0 Sodium Potassium Chloride Carbon Dioxide Anion Gap BUN Creatinine 1.30 Estim Creat Clear Calc 58.9 Estimated GFR 54 Random Glucose Calcium Vancomycin Trough 16.5 02/09/22 06:06 WBC RBC Hgb Hct MCV MCH MCHC RDW Plt Count MPV Absolute Nucleated RBC Nucleated RBC % (auto) Sodium 134 L Potassium 3.5 Chloride 103 Carbon Dioxide 23 Anion Gap 12 BUN 27 H Creatinine 1.33 Estim Creat Clear Calc 57.6 Estimated GFR 53 Random Glucose 153 H Calcium 7.8 L D Vancomycin Trough Imaging Radiologist's impression: Impressions Foot MRI 02/07/22 22:25 IMPRESSION: Findings indicative of an infection in the forefoot. There is a superficial ulceration with sinus tract communicating with an abscess abutting the 4th metatarsal. Suspect at least focal osteomyelitis involving the proximal 4th metatarsal. The may be additional extension of the infection to the more distal portion of the metatarsal as detailed above. There is cellulitis circumferentially about the 4th metatarsal. No definite involvement of the 4th tarsometatarsal joint. Postsurgical changes stable. Mild generalized edema in the subcutaneous soft tissues dorsally. Nonspecific myositis. Progress Note: A&P Assessment and plan (1) Bacteremia: Status: Acute (2) Status post aortic valve replacement with bioprosthetic valve: Status: Acute (3) Persistent atrial fibrillation: Status: Acute (4) Chronic right heart failure: Status: Acute (5) Uncontrolled diabetes mellitus with hyperglycemia: Status: Acute Plan Blood cultures in 1 bottle reveal Streptococcus group C. Other blood culture reported as gram-positive cocci by gram stain only. Final result is still pending. He has had group C Streptococcus in August 2021 as well. His last transthoracic echocardiogram was in August last year. At that time LVEF was 55-60%. Bioprosthetic valve thought to have normal function. Due to recurrent bacteremia, may need transesophageal echocardiogram. Will check with Infectious Disease and hospitalist service. Discussed with Dr. Henry as well as Dr. Kang. Plan is to proceed with transesophageal echocardiogram probably tomorrow, based on OR availability. If not Thursday. Otherwise, with regard to atrial fibrillation he is currently in sinus rhythm. Continue anticoagulation. He does have some bradycardia episodes but no advanced heart blocks and hence okay to continue low-dose beta blockers with close monitoring. Heart failure seems stable and he is on diuretics. Cardiac BNP is around his baseline. With regard to diabetes, poorly controlled. Hemoglobin A1c from November is 9.3% which indicates poor control. Most likely etiology for recurrent bacteremia infections. Even last year it was 10.1%. With regard to slight troponin leak, no specific management. Likely from demand from acute medical issues. Will follow up with you. Keep NPO past midnight. Time Spent With Patient Time: Total time spent is greater than 50% in coordination of care (as documented) at patient's floor/unit and/or counseling patient: 35min. Progress Note: Quality Stroke Does the patient have a stroke diagnosis?: No Procedures Date of Service Date of Service: 02/09/22
[2022-02-09] MEDS: Insulin Lispro 100 UNIT/ML 3 ML VIAL SUBCUT ×3 (12:43→20:56)
[2022-02-09] MEDS: Metoprolol Succinate ER 25 MG TAB.ER.24H PO (12:44)
--- NOTE | 2022-02-09 13:18 | PM.PNNEP ---
Subjective Subjective Date of Service: 02/09/22 Interval history: Gram-positive bacteremia recurrent.? Left leg cellulitis Feels better Physical Exam Vital Signs: Vital Signs: Last Vital Signs Temp 97.9 F 02/09/22 11:30 Pulse 64 02/09/22 11:30 Resp 14 02/09/22 11:30 BP 111/58 L 02/09/22 11:30 Pulse Ox 96 02/09/22 11:30 BMI result Body Mass Index 28.5 Const General:?comfortable, no acute distress and ill appearing Orientation/consciousness:?patient oriented x3 HEENT Other: Unremarkable Head:?Yes normal to inspection Neck Neck:?Yes normal visual inspection Chest Chest palpation & inspection:?normal inspection of the chest Resp Auscultation:?clear to auscultation bilaterally and rhonchi Cardio Palpation:?normal PMI Heart sounds:?S1 normal heart sound present, S2 normal heart sound present, no gallops, Murmur heart sound present systolic early, II/ and at the right sternal border and no rubs GI Palpation (GI):?Soft to palpation Back/Spine/Pelvis Other: unremarkable Skin General skin exam:?no rashes or lesions noted Neuro General:?patient oriented x3 Extrem General:?Yes pedal edema (1+) and Yes other (scabbing middle of both legs) Psych Mental Status:?mental status grossly normal Objective Data Labs CBC & Chem 7: 02/09/22 06:06 02/09/22 06:06 Labs: Laboratory Results - last 24 hr 02/09/22 02/09/22 02/09/22 06:06 06:06 06:06 WBC 6.3 RBC 3.39 L Hgb 9.7 L Hct 29.9 L MCV 88.2 MCH 28.6 MCHC 32.4 RDW 16.5 H Plt Count 116 L MPV 10.9 Absolute Nucleated RBC 0.000 Nucleated RBC % (auto) 0.0 Sodium Potassium Chloride Carbon Dioxide Anion Gap BUN Creatinine 1.30 Estim Creat Clear Calc 58.9 Estimated GFR 54 Random Glucose Calcium Vancomycin Trough 16.5 02/09/22 06:06 WBC RBC Hgb Hct MCV MCH MCHC RDW Plt Count MPV Absolute Nucleated RBC Nucleated RBC % (auto) Sodium 134 L Potassium 3.5 Chloride 103 Carbon Dioxide 23 Anion Gap 12 BUN 27 H Creatinine 1.33 Estim Creat Clear Calc 57.6 Estimated GFR 53 Random Glucose 153 H Calcium 7.8 L D Vancomycin Trough Microbiology Microbiology Results: Microbiology 02/07/22 04:20 Blood - Venous Blood Culture - Final Streptococcus group c 02/07/22 04:20 Blood - Venous Blood Culture - Final Streptococcus group c Procedures Date of Service Date of Service: 02/09/22 Assessment & Plan Assessment and plan (1) HUGO (acute kidney injury): Status: Acute Plan 1. 71-year-old male with acute kidney injury. ? Patient likely to have prerenal azotemia.? He was clinically volume depleted.? He was on diuretic, Lasix which could have also contributed to his renal insufficiency.?? In the absence of hematuria/pyuria, I doubt the patient has acute GN/interstitial disease. 2. CKD stage 3 at baseline in the setting of longstanding hypertension, diabetes, possible renovascular disease. 3. Cellulitis of the lower extremity. 4. Coronary artery disease. 5. 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 6. Mild metabolic acidosis with non-anion gap type. ? RECOMMENDATION:? Continue? gentle intravenous fluids ?I recommend holding off on the Lasix - restart before d/c ? Hold TIARA F/u vanc Level ? F/u renal func and Lytes ? Thank you for allowing me to participate in medical management of the patient. Time Spent With Patient Time: Total time spent is greater than 50% in coordination of care (as documented) at patient's floor/unit and/or counseling patient: Progress Note: Quality Stroke Does the patient have a stroke diagnosis?: No
[2022-02-09] MEDS: Tamsulosin HCL 0.4 MG CAPSULE PO (16:38)
[2022-02-09] MEDS: cefTRIAXone sodium 2 GM in 0.9 % Sodium Chloride 50 ML IV (17:19)
[2022-02-09] MEDS: Atorvastatin Calcium 80 MG TABLET PO (20:56)
[2022-02-09] MEDS: Ezetimibe 10 MG TABLET PO (20:56)
[2022-02-10 03:24] VITALS: BP 132/72; PULSE 80; RESP 20; TEMP 36.8; O2SAT 92
[2022-02-10] MEDS: Piperacillin Sodium/Tazobactam 3.375 GM in 0.9 % Sodium Chloride 50 ML IV ×4 (05:14→22:12)
--- NOTE | 2022-02-10 07:00 | CA_ITS ---
Transthoracic Echocardiogram Patient (Last, First, Middle): Dom Sood, Gender: Male Date of : 1950 Age: 71 Procedure Date: 02/10/2022 Procedure Type: Transthoracic Echocardiogram Location: [facility] [place] Height: 180.34 cm Weight: 92.99 kg BSA: 2.13 m2 Heart Rate: bpm BP: 132 / 72 mmHg Coding Quality Coordinator: MERNA Referring MD: Harry Henry MD Symptoms: strep bacteremia Study Quality: Adequate ECG Rhythm: Sinus Conclusions: - Normal left ventricular size and systolic function. There is mildly increased left ventricular wall thickness. The visually estimated ejection fraction is between 55-60%. - There is a flattened septum in systole and diastole consistent with right ventricular pressure and volume overload. - Moderately increased right ventricular cavity size. There is moderate to severely decreased right ventricular systolic function. - A bioprosthetic aortic valve is present. The prosthetic aortic valve appears to be functioning normally. - severe mitral annular calcification with some mobile MAC noted in some views. this is likely due to mobile mitral annular calcification and a vegetation is less likely. Findings Left Ventricle Normal left ventricular size and systolic function. There is mildly increased left ventricular wall thickness. The visually estimated ejection fraction is between 55-60%. There is a flattened septum in systole and diastole consistent with right ventricular pressure and volume overload. Diastolic function is indeterminate on the basis of available data. Right Ventricle Moderately increased right ventricular cavity size. There is moderate to severely decreased right ventricular systolic function. Atria The left atrium is moderately dilated. Aortic Valve A bioprosthetic aortic valve is present. The prosthetic aortic valve appears to be functioning normally. The peak aortic velocity is 2.30 m/s. The aortic valve area is 1.46 cm2. There is no aortic valve regurgitation. Mitral Valve There is mild mitral valve regurgitation. severe mitral annular calcification with some mobile MAC noted in some views. this is likely due to mobile mitral annular calcification and a vegetation is less likely. Pulmonic Valve Normal pulmonic valve structure and function. There is trace pulmonic valve regurgitation. Tricuspid Valve Normal tricuspid valve structure. There is mild tricuspid valve regurgitation. Significantly elevated right atrial pressure. Moderate to severe pulmonary hypertension is present. Great Vessels All visible segments of the aorta are normal in size. The pulmonary artery was not well visualized. Venous The inferior vena cava is dilated and collapses less than 50% with inspiration. Pericardium/Pleural There is no evidence of pericardial effusion. Recommendations, Care & Conclusions Consider a DEREK if clinically appropriate. Measurements 2D Linear Measurements IVSd: 1.30 0.6-0.9/0.6-1.0 cm LVIDd: 4.07 3.9-5.3/4.2-5.9 cm LVIDd Index: 1.91 2.4-3.2/2.2-3.1 cm/m2 LVIDs: 2.70 2.0-3.6 cm LVPWd: 1.37 0.7-1.1 cm LA Diam: 4.70 2.7-3.8/3.0-4.0 cm LAIDs Index: 2.21 1.5-2.3 cm/m2 LV Mass: 248.31 67-162/88-224 g LV Mass Index: 116.58 43-95/49-115 g/m2 LVOT Diam: 2.00 3.0+(-)1.3 cm Mitral Valve MV VTI: 0.60 MV Pk Rojelio: 2.41 MV Mn Rojelio: 1.30 MV Pk Grad: 23.00 MV Mn Grad: 8.00 MV Pk E: 1.88 MV PK A: 0.99 MV Decel Time: 296.00 E/A: 1.90 E'Lateral: 9.14 E'Medial: 4.46 E/E' Med: 42.20 E/E' Lat: 20.60 PHT: 87.00 MVA PHT: 2.53 MVA Continuity: 1.27 Decel [place]: 6.36 Aortic Valve AoV Pk Rojelio: 2.30 AoV Mn Rojelio: 1.62 AoV VTI: 0.52 AoV Pk Grad: 21.00 Aov Mn Grad: 12.00 SEJAL Cont.VTI: 1.46 LVOT LVOT Pk Rojelio: 1.05 LVOT Mn Rojelio: 0.78 LVOT VTI: 0.24 LVOT Pk Grad: 4.00 LVOT Mn Grad: 3.00 LVOT Diam: 2.00 LVOT Area: 3.14 Diastolic Function MV Pk E: 1.88 MV Pk A: 0.99 E/A: 1.90 E'Medial: 4.46 E/E' Med: 42.20 E' Laterial: 9.14 E/E' Lat: 20.60 Tricuspid Valve TR Pk Rojelio: 2.94 TR Pk Grad: 35.00 RVSP: 55.00 Great Vessels Aorta Ao Asc: 3.60 2.1-3.4 cm Pulmonary Valve PV Pk Rojelio: 0.87 Peak PV Grad: 3.00 Updated in Other Vendor System with Status of Final Elvin Mancilla MD electronically signed on 02/10/2022 4:20:38 PM with status of Final
[2022-02-10 07:15] VITALS: BP 133/66; PULSE 70; RESP 18; TEMP 36.6; O2SAT 95
--- NOTE | 2022-02-10 07:30 | P.PNIM_ITS ---
Subjective Subjective Date of Service: 02/10/22 Interval History: Strep group C bacteremia recurrent.? Left leg cellulitis, hugo Review of Systems leg erythema also improving.? Denies any chest pain or shortness of breath or abdominal pain or fever chills or cough or phlegm Physical Exam Vital Signs: Vital Signs: Last Vital Signs Temp 97.8 F 02/10/22 07:15 Pulse 70 02/10/22 07:15 Resp 18 02/10/22 07:15 BP 133/66 02/10/22 07:15 Pulse Ox 95 02/10/22 07:15 BMI result Body Mass Index 28.5 Appearance: Alert.? Oriented X3. cvs: irregular rythem, [id number]. res:fair air netry,no rales or wheezing. abd: no rebound or guarding ,nt, bs present. ext pulses present , no cyanosis right leg swleling and bruise ,erythema/swelling improving left foot bottom -had ulcer (? chronic) -no discharge . neuro: axo3 , nonfocal. Objective Data Active Medications Apixaban (Apixaban 5 Mg Tablet) 5 mg PO BID [facility] Last Admin: 02/09/22 20:56 Dose: 5 mg Documented by: SMILEY Atorvastatin Calcium (Atorvastatin Calcium 80 Mg Tablet) 80 mg PO BEDTIME [facility] Last Admin: 02/09/22 20:56 Dose: 80 mg Documented by: SMILEY Dextrose (Dextrose 50 % 25 Gm/50 Ml Syringe) 25 gm IVPUSH Q15M PRN; Protocol PRN Reason: per Hypoglycemia Standing Ord. Docusate Sodium (Docusate Sodium 100 Mg Capsule) 100 mg PO BID [facility] Last Admin: 02/09/22 20:56 Dose: 100 mg Documented by: SMILEY Ezetimibe (Ezetimibe 10 Mg Tablet) 10 mg PO BEDTIME [facility] Last Admin: 02/09/22 20:56 Dose: 10 mg Documented by: SMILEY Furosemide (Furosemide 40 Mg Tablet) 40 mg PO DAILY [facility]; Protocol Last Admin: 02/09/22 10:01 Dose: 40 mg Documented by: EFRAIN Glucose (Glucose Gel 15 Gm Gel..Gram.) 15 gm PO Q15M PRN; Protocol PRN Reason: per Hypoglycemia Standing Ord. Piperacillin Sod/Tazobactam (Sod 3.375 gm/ Sodium Chloride) 50 mls @ 100 mls/hr IV Q6H [facility] Last Infusion: 02/10/22 05:49 Dose: 0 mls/hr Documented by: SMILEY Ceftriaxone Sodium 2 gm/ (Sodium Chloride) 50 mls @ 100 mls/hr IV Q24H [facility] Last Infusion: 02/09/22 18:21 Dose: 0 mls/hr Documented by: KIMBERLEY Insulin Glargine (Insulin Glargine,Hum.Rec.Anlog 100 Unit/Ml 10 Ml Vial) 22 unit SUBCUT DAILY [facility] Last Admin: 02/09/22 10:02 Dose: 22 unit Documented by: EFRAIN Insulin Human Lispro (Insulin Lispro 100 Unit/Ml 3 Ml Vial) 0 unit SUBCUT QIDACHS [facility]; Protocol Last Admin: 02/09/22 20:56 Dose: 2 unit Documented by: SMILEY Levothyroxine Sodium (Levothyroxine Sodium 50 Mcg Tablet) 50 mcg PO Q2D@0630 [facility] Last Admin: 02/10/22 05:14 Dose: Not Given Documented by: SMILEY Non-Admin Reason: NPO Magnesium Oxide (Magnesium Oxide 400 Mg Tablet) 400 mg PO TID [facility] Last Admin: 02/09/22 20:56 Dose: 400 mg Documented by: SMILEY Metoprolol Succinate (Metoprolol Succinate Er 25 Mg Tab.Er.24h) 25 mg PO DAILY [facility]; Protocol Last Admin: 02/09/22 12:44 Dose: 25 mg Documented by: EFRAIN Omeprazole (Omeprazole 20 Mg Capsule.) 20 mg PO BID@0630,1630 [facility] Last Admin: 02/10/22 05:15 Dose: Not Given Documented by: SMILEY Non-Admin Reason: NPO Pharmacy Consult (Consult Rx Perform Med Rec) 1 each MISCELLANE ONCE PRN PRN Reason: Consult order Sodium Chloride (0.9 % Sodium Chloride Flush 3 Ml Syringe) 3 ml IVFLUSH QSHIFT [facility] Last Admin: 02/09/22 20:56 Dose: 3 ml Documented by: SMILEY Tamsulosin HCl (Tamsulosin Hcl 0.4 Mg Capsule) 0.4 mg PO DAILY@1700 [facility] Last Admin: 02/09/22 16:38 Dose: 0.4 mg Documented by: KIMBERLEY Labs CBC & Chem 7: 02/10/22 08:28 02/10/22 08:28 Microbiology Microbiology Results: Microbiology 02/07/22 04:20 Blood Culture - Final Blood - Venous Streptococcus group c 02/07/22 04:20 Blood Culture - Final Blood - Venous Streptococcus group c Assessment and Plan (1) HUGO (acute kidney injury): Status: Acute (2) Bacteremia: Status: Acute (3) Afib: Status: Acute Plan 71-year-old male with a past medical history of hypertension, hyperlipidemia, diabetes, CAD status post CABG, 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 1. possible sepsis? secondary to cellulitis/bacteremia ?tachypnea and fever resolved , leukocytosis. Blood culture - Gram-positive cocci. repeat blood cultures added. Previous blood culture were Streptococcus group C during last admission. Blood culture again come back 6 Streptococcus group C sensitive to ceftriaxone.? Repeat blood culture pending Denies any cough Denies any weakness or numbness. Id eval -Mri foot done -noted?least focal osteomyelitis involving the proximal 4th metatarsal/Findings indicative of an infection in the forefoot. There is a superficial ulceration with sinus tract communicating with an abscess abutting the 4th metatarsal added suregry eval Id suggested to switch to iv ceftriaxone day2as per above blood cultures . Discussed with ID and cardio: Will start with the answers thoracic echo to see any cardiac valve in or meant. 2. afib:hr rate fluctiuting-in 30-40 asymptomatic ?Underlying AFib on anticoagulation continue Eliquis. hold metoprolol will hold that. Cardio evaluation-for recurrent bacteremia Streptococcus C, heart rate improving Cardiology follow up. 3. thombocytopenia :? Probably chronic, fluctuating platelets level.? Will continue to monitor. 4. dm:fs 135-200. fs with coverage 5. HLP:? atorvastatin. 6. Hypertension:? Blood pressure is acceptable Hold lisinopril due to HUGO. 7. HUGO: Patient received fluid in the ED, Seen by Nephrology, improved with hydration-initially received IV, encouraged for p.o. hydration, to monitor. Need for inpatient:? Streptococcus group C bacteremia recurrent, foot osteomyelitis on iv natibiotics ,echo Quality Stroke Does the patient have a stroke diagnosis?: No VTE Prior VTE?: No VTE Risk Level:: Medical - moderate - high VTE Device Contraindication: N/A - Device Ordered VTE Drug Contraindication: N/A - Med Ordered
[2022-02-10] MEDS: Magnesium Oxide 400 MG TABLET PO ×3 (07:37→19:37)
[2022-02-10] MEDS: Insulin Lispro 100 UNIT/ML 3 ML VIAL SUBCUT ×4 (07:37→20:22)
[2022-02-10] MEDS: Metoprolol Succinate ER 25 MG TAB.ER.24H PO (07:37)
[2022-02-10] MEDS: Docusate Sodium 100 MG CAPSULE PO ×2 (07:37→19:36)
[2022-02-10] MEDS: Apixaban 5 MG TABLET PO ×2 (07:37→19:37)
[2022-02-10] MEDS: 0.9 % Sodium Chloride Flush 3 ML SYRINGE IVFLUSH ×3 (07:38→19:37)
[2022-02-10] MEDS: Insulin Glargine,Hum.rec.anlog 100 UNIT/ML 10 ML VIAL 22 UNIT SUBCUT (07:38)
[2022-02-10 09:16] LABS: Glucose, Whole Blood 228 mg/dL (60-115)
[2022-02-10 09:19] LABS: Glucose, Whole Blood 156 mg/dL (60-115)
[2022-02-10 09:20] LABS: Glucose, Whole Blood 209 mg/dL (60-115)
[2022-02-10 09:21] LABS: Glucose, Whole Blood 211 mg/dL (60-115)
[2022-02-10 09:22] LABS: Glucose, Whole Blood 135 mg/dL (60-115)
[2022-02-10 09:23] LABS: Hematocrit 32.8 % (42.0-52.0); Hemoglobin 10.6 g/dl (14.0-18.0); Mean Corpuscular HGB Conc 32.3 g/dl (31.0-36.0); Mean Corpuscular Hemoglobin 28.3 pg (27.0-33.0); Mean Corpuscular Volume 87.7 fL (80.0-98.0); Mean Platelet Volume 11.8 fL (9.4-12.4); Platelet Count 135 X10*3/uL (160-400); Red Blood Count 3.74 X10*6/uL (4.60-5.80); Red Cell Distribution Width 16.5 % (11.0-16.0); White Blood Count 7.7 X10*3/uL (4.8-10.8)
[2022-02-10 09:24] LABS: Glucose, Whole Blood 207 mg/dL (60-115)
[2022-02-10 09:26] LABS: Glucose, Whole Blood 192 mg/dL (60-115)
[2022-02-10 09:27] LABS: Glucose, Whole Blood 231 mg/dL (60-115)
[2022-02-10 09:28] LABS: Glucose, Whole Blood 241 mg/dL (60-115)
[2022-02-10 09:35] LABS: Creatinine Clr Calc Pharmacy 62.3; Estimated Glomerular Filt Rate 58
[2022-02-10 09:36] LABS: Anion Gap 12 (12-20); Blood Urea Nitrogen 25 mg/dL (9-16); Carbon Dioxide 26 mmol/L (22-29); Chloride 102 mmol/L (96-108); Creatinine Clr Calc Pharmacy 61.8; Estimated Glomerular Filt Rate 57; Glucose Random 213 mg/dL (60-115); Potassium 3.7 mmol/L (3.3-5.1); Sodium 136 mmol/L (135-145)
[2022-02-10 09:42] LABS: Vancomycin Random 13.9 mcg/mL (15-20)
[2022-02-10 09:54] LABS: Glucose, Whole Blood 214 mg/dL (60-115)
[2022-02-10 09:55] LABS: Glucose, Whole Blood 176 mg/dL (60-115)
[2022-02-10 09:56] LABS: Glucose, Whole Blood 212 mg/dL (60-115)
[2022-02-10 09:57] LABS: Glucose, Whole Blood 224 mg/dL (60-115)
[2022-02-10 11:07] VITALS: BP 135/61; PULSE 71; RESP 18; TEMP 36.9; O2SAT 96
--- NOTE | 2022-02-10 13:01 | PM.PNCARD ---
Subjective Subjective Date of Service: 02/10/22 Interval history: Feeling better. Blood cultures are pending. Last blood culture have shown Streptococcus group C. Previously had bacteremia with similar organism in August. He has left foot ulceration and infection. Physical Exam Vital Signs: Last Vital Signs Temp 98.4 F 02/10/22 11:07 Pulse 71 02/10/22 11:07 Resp 18 02/10/22 11:07 BP 135/61 02/10/22 11:07 Pulse Ox 96 02/10/22 11:07 BMI result Body Mass Index 28.5 GENERAL APPEARANCE: in no acute distress, pleasant. NECK: no carotid bruit, no jugular venous distention. SKIN: Left foot is dressed. HEART: Systolic murmur aortic area. irregular rate and rhythm. LUNGS: clear to auscultation bilaterally. ABDOMEN: soft, nontender. EXTREMITIES: Mild edema. PERIPHERAL PULSES: equal. NEUROLOGIC: No gross deficits, AAO X 3 Objective Labs and Meds Result diagrams: 02/10/22 08:28 02/10/22 08:28 Lab results: Laboratory Results - last 24 hr 02/07/22 02/07/22 02/07/22 10:53 13:44 21:07 WBC RBC Hgb Hct MCV MCH MCHC RDW Plt Count MPV Absolute Nucleated RBC Nucleated RBC % (auto) Sodium Potassium Chloride Carbon Dioxide Anion Gap BUN Creatinine Estim Creat Clear Calc Estimated GFR POC Glucose 228 H 224 H 212 H Random Glucose Calcium Random Vancomycin 02/08/22 02/08/22 02/08/22 07:40 10:57 15:36 WBC RBC Hgb Hct MCV MCH MCHC RDW Plt Count MPV Absolute Nucleated RBC Nucleated RBC % (auto) Sodium Potassium Chloride Carbon Dioxide Anion Gap BUN Creatinine Estim Creat Clear Calc Estimated GFR POC Glucose 176 H 214 H 241 H Random Glucose Calcium Random Vancomycin 02/08/22 02/08/22 02/08/22 16:37 19:53 21:34 WBC RBC Hgb Hct MCV MCH MCHC RDW Plt Count MPV Absolute Nucleated RBC Nucleated RBC % (auto) Sodium Potassium Chloride Carbon Dioxide Anion Gap BUN Creatinine Estim Creat Clear Calc Estimated GFR POC Glucose 231 H 192 H 207 H Random Glucose Calcium Random Vancomycin 02/09/22 02/09/22 02/09/22 07:08 11:37 15:48 WBC RBC Hgb Hct MCV MCH MCHC RDW Plt Count MPV Absolute Nucleated RBC Nucleated RBC % (auto) Sodium Potassium Chloride Carbon Dioxide Anion Gap BUN Creatinine Estim Creat Clear Calc Estimated GFR POC Glucose 135 H 211 H 209 H Random Glucose Calcium Random Vancomycin 02/09/22 02/10/22 02/10/22 18:59 08:28 08:28 WBC RBC Hgb Hct MCV MCH MCHC RDW Plt Count MPV Absolute Nucleated RBC Nucleated RBC % (auto) Sodium Potassium Chloride Carbon Dioxide Anion Gap BUN Creatinine 1.23 Estim Creat Clear Calc 62.3 Estimated GFR 58 POC Glucose 156 H Random Glucose Calcium Random Vancomycin 13.9 L 02/10/22 02/10/22 08:28 08:28 WBC 7.7 RBC 3.74 L Hgb 10.6 L Hct 32.8 L MCV 87.7 MCH 28.3 MCHC 32.3 RDW 16.5 H Plt Count 135 L MPV 11.8 Absolute Nucleated RBC 0.000 Nucleated RBC % (auto) 0.0 Sodium 136 Potassium 3.7 Chloride 102 Carbon Dioxide 26 Anion Gap 12 BUN 25 H Creatinine 1.24 Estim Creat Clear Calc 61.8 Estimated GFR 57 POC Glucose Random Glucose 213 H D Calcium 8.0 L Random Vancomycin Progress Note: A&P Assessment and plan (1) Bacteremia: Status: Acute Plan 71-year-old gentleman with background of bioprosthetic aortic valve replacement and endocarditis of aortic valve in the past presenting for fever and positive blood cultures with group C Streptococcus. He previously had similar organism in August in his blood. Likely source for the redness of his skin and he has wound on the left foot. He has repeat blood cultures drawn and transthoracic echocardiogram pending today. We will see if his blood cultures clear up. If he continues to be bacteremic then he may need DEREK. We will review the transthoracic echocardiogram. Thank you for allowing me to participate in the care of your patient. Please feel free to contact me if you have any questions. Time Spent With Patient Time: Total time spent is greater than 50% in coordination of care (as documented) at patient's floor/unit and/or counseling patient: Progress Note: Quality Stroke Does the patient have a stroke diagnosis?: No Procedures Date of Service Date of Service: 02/10/22
--- NOTE | 2022-02-10 13:37 | MHC.CM.PN ---
per tarik pt to have echo no dc date at this time
[2022-02-10 13:46] LABS: Glucose, Whole Blood 240 mg/dL (60-115)
[2022-02-10 13:47] LABS: Glucose, Whole Blood 200 mg/dL (60-115)
--- NOTE | 2022-02-10 16:16 | PM.IDPN ---
Subjective Subjective Date of Service: 02/10/22 Critical Care Time (minutes): 15 Comment: He says he is tired of recurrent Group C strep bacteremia (had in August). He has no other complaints. Objective Data Labs CBC & Chem 7: 02/10/22 08:28 02/10/22 08:28 Labs: Laboratory Results - last 24 hr 02/07/22 02/07/22 02/07/22 10:53 13:44 21:07 WBC RBC Hgb Hct MCV MCH MCHC RDW Plt Count MPV Absolute Nucleated RBC Nucleated RBC % (auto) Sodium Potassium Chloride Carbon Dioxide Anion Gap BUN Creatinine Estim Creat Clear Calc Estimated GFR POC Glucose 228 H 224 H 212 H Random Glucose Calcium Random Vancomycin 02/08/22 02/08/22 02/08/22 07:40 10:57 15:36 WBC RBC Hgb Hct MCV MCH MCHC RDW Plt Count MPV Absolute Nucleated RBC Nucleated RBC % (auto) Sodium Potassium Chloride Carbon Dioxide Anion Gap BUN Creatinine Estim Creat Clear Calc Estimated GFR POC Glucose 176 H 214 H 241 H Random Glucose Calcium Random Vancomycin 02/08/22 02/08/22 02/08/22 16:37 19:53 21:34 WBC RBC Hgb Hct MCV MCH MCHC RDW Plt Count MPV Absolute Nucleated RBC Nucleated RBC % (auto) Sodium Potassium Chloride Carbon Dioxide Anion Gap BUN Creatinine Estim Creat Clear Calc Estimated GFR POC Glucose 231 H 192 H 207 H Random Glucose Calcium Random Vancomycin 02/09/22 02/09/22 02/09/22 07:08 11:37 15:48 WBC RBC Hgb Hct MCV MCH MCHC RDW Plt Count MPV Absolute Nucleated RBC Nucleated RBC % (auto) Sodium Potassium Chloride Carbon Dioxide Anion Gap BUN Creatinine Estim Creat Clear Calc Estimated GFR POC Glucose 135 H 211 H 209 H Random Glucose Calcium Random Vancomycin 02/09/22 02/10/22 02/10/22 18:59 07:17 08:28 WBC RBC Hgb Hct MCV MCH MCHC RDW Plt Count MPV Absolute Nucleated RBC Nucleated RBC % (auto) Sodium Potassium Chloride Carbon Dioxide Anion Gap BUN Creatinine 1.23 Estim Creat Clear Calc 62.3 Estimated GFR 58 POC Glucose 156 H 200 H Random Glucose Calcium Random Vancomycin 02/10/22 02/10/22 02/10/22 08:28 08:28 08:28 WBC 7.7 RBC 3.74 L Hgb 10.6 L Hct 32.8 L MCV 87.7 MCH 28.3 MCHC 32.3 RDW 16.5 H Plt Count 135 L MPV 11.8 Absolute Nucleated RBC 0.000 Nucleated RBC % (auto) 0.0 Sodium 136 Potassium 3.7 Chloride 102 Carbon Dioxide 26 Anion Gap 12 BUN 25 H Creatinine 1.24 Estim Creat Clear Calc 61.8 Estimated GFR 57 POC Glucose Random Glucose 213 H D Calcium 8.0 L Random Vancomycin 13.9 L 02/10/22 11:09 WBC RBC Hgb Hct MCV MCH MCHC RDW Plt Count MPV Absolute Nucleated RBC Nucleated RBC % (auto) Sodium Potassium Chloride Carbon Dioxide Anion Gap BUN Creatinine Estim Creat Clear Calc Estimated GFR POC Glucose 240 H Random Glucose Calcium Random Vancomycin Microbiology Microbiology Results: Microbiology 02/07/22 04:20 Blood - Venous Blood Culture - Final Streptococcus group c 02/07/22 04:20 Blood - Venous Blood Culture - Final Streptococcus group c Physical Exam Vital Signs: Vital Signs: Last Vital Signs Temp 98.4 F 02/10/22 11:07 Pulse 71 02/10/22 11:07 Resp 18 02/10/22 11:07 BP 135/61 02/10/22 11:07 Pulse Ox 96 02/10/22 11:07 BMI result Body Mass Index 28.5 Const: General: cooperative Eyes: General: appearance normal, both eyes and all related structures Pupils: Equal, round and reactive pupils present Resp: Effort & Inspection: normal respiratory effort Cardio: Rate: regular rate Rhythm: regular rhythm GI: Palpation (GI): Soft to palpation and nontender Neuro: Cranial nerves: Yes Equal, round and reactive pupils present Extrem: Other: feet wrapped,no ascending cellulitis Assessment and Plan Assessment and plan (1) Status post aortic valve replacement with bioprosthetic valve: Problem details: Recurrent Group C strep bacteremia He had in August probable chronic cellulitis cause Status: Acute (2) Bacteremia: Status: Acute (3) Group C streptococcal infection: Problem details: Finish IV Ceftriaxone 2 g daily for six weeks and then po PCN 250 mg bid indefinitely. Status: Acute Time Spent With Patient Time: Total time spent is greater than 50% in coordination of care (as documented) at patient's floor/unit and/or counseling patient:
[2022-02-10 16:18] VITALS: BP 141/66; PULSE 65; RESP 18; TEMP 36.6; O2SAT 95
--- NOTE | 2022-02-10 16:25 | P.CONGS_ITS ---
History of Present Illness Consult details Consult date: 02/10/22 Requesting physician: Harry Henry Narrative: 71-year-old male patient with history of diabetes mellitus, diabetic foot ulcers, being treated at the [facility] presenting now with a s welling and redness of the left leg admitted 02/07/2022 for IV antibiotics. Over last several days his leg swelling has improved as has the redness. He was found to have a recurrent strep C infection. He has a history of aortic valve endocarditis and previously underwent AVR bioprosthetic. Current white blood cell count is 7.7. MRI of the foot revealed Findings indicative of an infection in the forefoot. There is a superficial ulceration with sinus tract communicating with an abscess abutting the 4th metatarsal. Suspect at least focal osteomyelitis involving the proximal 4th metatarsal. The may be additional extension of the infection to the more distal portion of the metatarsal as deta iled above. There is cellulitis circumferentially about the 4th metatarsal. No definite involvement of the 4th tarsometatarsal joint. Review of Systems Constitutional: Constitutional: Denies chills, Denies fever(s), Denies headache(s) and Denies poor appetite ENT: Denies dizziness and Denies headache(s) Cardiovascular: Cardiovascular: Denies chest pain, Denies rapid heart rate, Denies palpitations and Denies slow heart rate Respiratory: Respiratory: Denies chest congestion, Denies cough, Denies pain on inspiration and Denies wheezing Gastrointestinal: Gastrointestinal: Denies abdominal pain, Denies bloating, Denies change in stool character, Denies constipation, Denies diarrhea, Denies nausea, Denies vomiting and Denies hematemesis Musculoskeletal: Musculoskeletal: Denies back pain, Denies arthralgias, Denies joint swelling and Denies numbness Integumentary/Breasts: Skin/Breast: Reports as per HPI, Denies change in pigmentation, Denies erythema and Denies rash Neurologic: Denies dizziness, Denies headache(s) and Denies numbness Psychiatric: Psychiatric: Denies anxiety and Denies depression Endocrine: Endocrine: Denies palpitations Hematologic/Lymphatic: Hematologic/Lymphatic: Denies easy bleeding, Denies easy bruising and Denies lymphadenopathy Allergic/Immunologic: Allergic/Immunologic: Denies wheezing PMFSH Past Medical History Medical History Atrial fibrillation Chronic kidney disease, unspecified Coronary artery disease Diabetic foot ulcer Endocarditis of aortic valve Essential hypertension Group C streptococcal infection Hemorrhage of gastrointestinal tract, unspecified History of hemodialysis HIT (heparin-induced thrombocytopenia) (~2018) Hyperlipidemia, unspecified Hypomagnesemia Hypothyroidism Persistent atrial fibrillation Pulmonary nodule Type 2 diabetes mellitus with unspecified complications Family History Family History Father Emphysema, unspecified Mother Cardiovascular disease Family history: reviewed and not pertinent Surgical History Surgical History History of cardiac catheterization (~11/17/18) History of lung biopsy (~02/14/21) History of maze procedure Status post aortic valve replacement with bioprosthetic valve (~01/2019) Status post coronary artery bypass graft (~01/2019) Status post foot surgery Social History Social History Household Members: Spouse Housing: House Do you presently have visiting nurse or other home services: No Alcohol intake: never Patient Tobacco Use Status: Former Tobacco user Advance Directives Date on File: 06/27/20 service: No Current occupational status: retired Meds Allergies Allergy/AdvReac Type Severity Reaction Status Date / Time Heparin Analogues Allergy Severe HIT Verified 12/10/21 08:14 [HEPARIN ANALOGUES] acetaminophen [From TYLENOL] Allergy Unknown UNKNOWN Verified 12/10/21 08:14 insulin glargine Allergy Unknown Toujeo- Verified 12/10/21 08:14 diarrhea Sulfa (Sulfonamide Allergy Unknown HIVES Verified 12/10/21 08:14 Antibiotics) [SULFA (SULFONAMIDE ANTIBIOTICS)] Active Medications: Current Medications Apixaban (Apixaban 5 Mg Tablet) 5 mg PO BID [facility] Last Admin: 02/10/22 07:37 Dose: 5 mg Documented by: Atorvastatin Calcium (Atorvastatin Calcium 80 Mg Tablet) 80 mg PO BEDTIME [facility] Last Admin: 02/09/22 20:56 Dose: 80 mg Documented by: Dextrose (Dextrose 50 % 25 Gm/50 Ml Syringe) 25 gm IVPUSH Q15M PRN; Protocol PRN Reason: per Hypoglycemia Standing Ord. Docusate Sodium (Docusate Sodium 100 Mg Capsule) 100 mg PO BID [facility] Last Admin: 02/10/22 07:37 Dose: 100 mg Documented by: Ezetimibe (Ezetimibe 10 Mg Tablet) 10 mg PO BEDTIME [facility] Last Admin: 02/09/22 20:56 Dose: 10 mg Documented by: Furosemide (Furosemide 40 Mg Tablet) 40 mg PO DAILY [facility]; Protocol Last Admin: 02/09/22 10:01 Dose: 40 mg Documented by: Glucose (Glucose Gel 15 Gm Gel..Gram.) 15 gm PO Q15M PRN; Protocol PRN Reason: per Hypoglycemia Standing Ord. Piperacillin Sod/Tazobactam (Sod 3.375 gm/ Sodium Chloride) 50 mls @ 100 mls/hr IV Q6H [facility] Last Infusion: 02/10/22 11:05 Dose: Infused Documented by: Ceftriaxone Sodium 2 gm/ (Sodium Chloride) 50 mls @ 100 mls/hr IV Q24H [facility] Last Infusion: 02/09/22 18:21 Dose: Infused Documented by: Insulin Glargine (Insulin Glargine,Hum.Rec.Anlog 100 Unit/Ml 10 Ml Vial) 22 unit SUBCUT DAILY [facility] Last Admin: 02/10/22 07:38 Dose: 22 unit Documented by: Insulin Human Lispro (Insulin Lispro 100 Unit/Ml 3 Ml Vial) 0 unit SUBCUT QIDACHS [facility]; Protocol Last Admin: 02/10/22 11:52 Dose: 4 unit Documented by: Levothyroxine Sodium (Levothyroxine Sodium 50 Mcg Tablet) 50 mcg PO Q2D@0630 [facility] Last Admin: 02/10/22 05:14 Dose: Not Given Documented by: Magnesium Oxide (Magnesium Oxide 400 Mg Tablet) 400 mg PO TID [facility] Last Admin: 02/10/22 15:02 Dose: 400 mg Documented by: Metoprolol Succinate (Metoprolol Succinate Er 25 Mg Tab.Er.24h) 25 mg PO DAILY [facility]; Protocol Last Admin: 02/10/22 07:37 Dose: 25 mg Documented by: Omeprazole (Omeprazole 20 Mg Capsule.Dr) 20 mg PO BID@0630,1630 [facility] Last Admin: 02/10/22 05:15 Dose: Not Given Documented by: Pharmacy Consult (Consult Rx Perform Med Rec) 1 each MISCELLANE ONCE PRN PRN Reason: Consult order Sodium Chloride (0.9 % Sodium Chloride Flush 3 Ml Syringe) 3 ml IVFLUSH QSHIFT [facility] Last Admin: 02/10/22 15:05 Dose: 3 ml Documented by: Tamsulosin HCl (Tamsulosin Hcl 0.4 Mg Capsule) 0.4 mg PO DAILY@1700 [facility] Last Admin: 02/09/22 16:38 Dose: 0.4 mg Documented by: Home Medications Medication Instructions Recorded Confirmed Last Taken Type atorvastatin 80 mg tablet 80 mg PO BEDTIME 07/18/20 02/07/22 02/06/22 History insulin glargine 100 unit/mL (3 22 unit SUBCUT DAILY 07/18/20 02/07/22 02/06/22 History mL) subcutaneous pen levothyroxine 50 mcg tablet 50 mcg PO Q2D@0630 07/18/20 02/07/22 02/06/22 History magnesium oxide 400 mg (241.3 mg 400 mg PO TID 07/18/20 02/07/22 02/06/22 History magnesium) tablet insulin lispro 100 unit/mL See Protocol SUBCUT QIDACHS 07/26/20 02/07/22 02/06/22 History subcutaneous pen (Humalog KwikPen (U-100) Insulin) tamsulosin 0.4 mg capsule (Flomax) 0.4 mg PO DAILY@1700 07/26/20 02/07/22 02/06/22 History omeprazole 20 mg capsule,delayed 20 mg PO BID@0630,1630 01/09/21 02/07/22 02/06/22 History release blood sugar diagnostic #10 ea 02/01/21 12/10/21 02/06/22 History blood-glucose meter #1 ea 02/01/21 12/10/21 02/06/22 History pen needle, diabetic 32 gauge x #50 nelly 02/01/21 12/10/21 02/06/22 History 32 docusate sodium 100 mg capsule 100 mg PO BID 02/07/22 02/07/22 02/06/22 History (Stool Softener) metoprolol succinate 25 mg 25 mg PO BEDTIME 02/07/22 02/07/22 02/06/22 History tablet,extended release 24 hr (Toprol XL) Physical Exam Vital Signs: Vital Signs: Last Vital Signs Temp 97.8 F 02/10/22 16:18 Pulse 65 02/10/22 16:18 Resp 18 02/10/22 16:18 BP 141/66 H 02/10/22 16:18 Pulse Ox 95 02/10/22 16:18 BMI result Body Mass Index 28.5 Const: General: cooperative, comfortable and well developed Nutritional Appearance: well nourished Orientation/consciousness: patient oriented x3 HEENT: Head: Yes normocephalic and Yes atraumatic Eyes: Sclerae: sclerae normal EOM: EOMs intact bilaterally Neck: Neck: Yes normal visual inspection Resp: Effort & Inspection: normal respiratory effort, no cough, no respiratory distress and no stridor Cardio: Jugular venous distension: no JVD GI: Inspection: Yes normal to inspection Skin: General skin exam: dry skin Rashes: no rashes Neuro: General: patient oriented x3 and no focal motor deficits Extrem: Other: Open wound of the left foot, plantar surface over the 4th and 5th metatarsal, apparent puncture wound, appears superficial with no exposed bone or hardware. No surrounding erythema. No fluctuance and no tenderness to palpation. Bloody discharge noted wound. Wounds dressed with dry sterile dressing. General: Yes full ROM and Yes no clubbing, cyanosis or edema Psych: Appearance: grossly normal Results Labs Result diagrams: 02/10/22 08:28 02/10/22 08:28 Labs: Abnormal lab results 02/07/22 02/07/22 02/07/22 Range/Units 10:53 13:44 21:07 RBC (4.60-5.80) X10*6/uL Hgb (14.0-18.0) g/dl Hct (42.0-52.0) % RDW (11.0-16.0) % Plt Count (160-400) X10*3/uL BUN (9-16) mg/dL POC Glucose 228 H 224 H 212 H (60-115) mg/dL Random Glucose (60-115) mg/dL Calcium (8.4-10.2) mg/dL Random Vancomycin (15-20) mcg/mL 02/08/22 02/08/22 02/08/22 Range/Units 07:40 10:57 15:36 RBC (4.60-5.80) X10*6/uL Hgb (14.0-18.0) g/dl Hct (42.0-52.0) % RDW (11.0-16.0) % Plt Count (160-400) X10*3/uL BUN (9-16) mg/dL POC Glucose 176 H 214 H 241 H (60-115) mg/dL Random Glucose (60-115) mg/dL Calcium (8.4-10.2) mg/dL Random Vancomycin (15-20) mcg/mL 02/08/22 02/08/22 02/08/22 Range/Units 16:37 19:53 21:34 RBC (4.60-5.80) X10*6/uL Hgb (14.0-18.0) g/dl Hct (42.0-52.0) % RDW (11.0-16.0) % Plt Count (160-400) X10*3/uL BUN (9-16) mg/dL POC Glucose 231 H 192 H 207 H (60-115) mg/dL Random Glucose (60-115) mg/dL Calcium (8.4-10.2) mg/dL Random Vancomycin (15-20) mcg/mL 02/09/22 02/09/22 02/09/22 Range/Units 07:08 11:37 15:48 RBC (4.60-5.80) X10*6/uL Hgb (14.0-18.0) g/dl Hct (42.0-52.0) % RDW (11.0-16.0) % Plt Count (160-400) X10*3/uL BUN (9-16) mg/dL POC Glucose 135 H 211 H 209 H (60-115) mg/dL Random Glucose (60-115) mg/dL Calcium (8.4-10.2) mg/dL Random Vancomycin (15-20) mcg/mL 02/09/22 02/10/22 02/10/22 Range/Units 18:59 07:17 08:28 RBC (4.60-5.80) X10*6/uL Hgb (14.0-18.0) g/dl Hct (42.0-52.0) % RDW (11.0-16.0) % Plt Count (160-400) X10*3/uL BUN (9-16) mg/dL POC Glucose 156 H 200 H (60-115) mg/dL Random Glucose (60-115) mg/dL Calcium (8.4-10.2) mg/dL Random Vancomycin 13.9 L (15-20) mcg/mL 02/10/22 02/10/22 02/10/22 Range/Units 08:28 08:28 11:09 RBC 3.74 L (4.60-5.80) X10*6/uL Hgb 10.6 L (14.0-18.0) g/dl Hct 32.8 L (42.0-52.0) % RDW 16.5 H (11.0-16.0) % Plt Count 135 L (160-400) X10*3/uL BUN 25 H (9-16) mg/dL POC Glucose 240 H (60-115) mg/dL Random Glucose 213 H D (60-115) mg/dL Calcium 8.0 L (8.4-10.2) mg/dL Random Vancomycin (15-20) mcg/mL Short CBC 02/10/22 Range/Units 08:28 WBC 7.7 (4.8-10.8) X10*3/uL Hgb 10.6 L (14.0-18.0) g/dl Hct 32.8 L (42.0-52.0) % Plt Count 135 L (160-400) X10*3/uL BMP 02/10/22 02/10/22 08:28 08:28 Sodium 136 Potassium 3.7 Chloride 102 Carbon Dioxide 26 BUN 25 H Creatinine 1.23 1.24 Calcium 8.0 L Urine 02/07/22 Range/Units 05:12 Urine Color YELLOW Urine Appearance CLEAR Urine pH 6.0 (5.0-8.0) Ur Specific [place] 1.020 (1.005-1.025) Urine Protein 2+ H (NEG-TRACE) MG/DL Urine Glucose (UA) NEG (NEG) MG/DL All other labs normal. Assessment and Plan (1) Diabetic foot ulcer: Status: Acute Plan 71-year-old male patient presenting with a nonhealing wound of the left foot with MRI findings suggestive of a small area of osteomyelitis. Wound appears fairly superficial with no purulent collection or exposed bone. Recommend apply ing silver alginate dressings and dry sterile dressings. Will monitor during his hospitalization. Patient should return to the [facility] upon discharge. Procedures Date of Service Date of Service: 02/10/22
--- NOTE | 2022-02-10 16:39 | PM.PNNEP ---
Subjective Subjective Date of Service: 02/10/22 Interval history: Strep group C bacteremia recurrent.? Left leg cellulitis, hugo Chart reviewed. Events noted. Physical Exam Vital Signs: Vital Signs: Last Vital Signs Temp 97.8 F 02/10/22 16:18 Pulse 65 02/10/22 16:18 Resp 18 02/10/22 16:18 BP 141/66 H 02/10/22 16:18 Pulse Ox 95 02/10/22 16:18 BMI result Body Mass Index 28.5 Const: General: comfortable and no acute distress Orientation/consciousness: patient oriented x3 HEENT: Head: Yes normocephalic and Yes atraumatic Neck: Neck: Yes no JVD Resp: Auscultation: clear to auscultation bilaterally Cardio: Jugular venous distension: no JVD Rhythm: regular rhythm Heart sounds: S1 normal heart sound present and S2 normal heart sound present GI: Auscultation: normal bowel sounds Neuro: General: patient oriented x3 and no focal motor deficits Extrem: General: Yes no clubbing, cyanosis or edema Objective Data Labs CBC & Chem 7: 02/10/22 08:28 02/10/22 08:28 Labs: Laboratory Results - last 24 hr 02/07/22 02/07/22 02/07/22 10:53 13:44 21:07 WBC RBC Hgb Hct MCV MCH MCHC RDW Plt Count MPV Absolute Nucleated RBC Nucleated RBC % (auto) Sodium Potassium Chloride Carbon Dioxide Anion Gap BUN Creatinine Estim Creat Clear Calc Estimated GFR POC Glucose 228 H 224 H 212 H Random Glucose Calcium Random Vancomycin 02/08/22 02/08/22 02/08/22 07:40 10:57 15:36 WBC RBC Hgb Hct MCV MCH MCHC RDW Plt Count MPV Absolute Nucleated RBC Nucleated RBC % (auto) Sodium Potassium Chloride Carbon Dioxide Anion Gap BUN Creatinine Estim Creat Clear Calc Estimated GFR POC Glucose 176 H 214 H 241 H Random Glucose Calcium Random Vancomycin 02/08/22 02/08/22 02/08/22 16:37 19:53 21:34 WBC RBC Hgb Hct MCV MCH MCHC RDW Plt Count MPV Absolute Nucleated RBC Nucleated RBC % (auto) Sodium Potassium Chloride Carbon Dioxide Anion Gap BUN Creatinine Estim Creat Clear Calc Estimated GFR POC Glucose 231 H 192 H 207 H Random Glucose Calcium Random Vancomycin 02/09/22 02/09/22 02/09/22 07:08 11:37 15:48 WBC RBC Hgb Hct MCV MCH MCHC RDW Plt Count MPV Absolute Nucleated RBC Nucleated RBC % (auto) Sodium Potassium Chloride Carbon Dioxide Anion Gap BUN Creatinine Estim Creat Clear Calc Estimated GFR POC Glucose 135 H 211 H 209 H Random Glucose Calcium Random Vancomycin 02/09/22 02/10/22 02/10/22 18:59 07:17 08:28 WBC RBC Hgb Hct MCV MCH MCHC RDW Plt Count MPV Absolute Nucleated RBC Nucleated RBC % (auto) Sodium Potassium Chloride Carbon Dioxide Anion Gap BUN Creatinine 1.23 Estim Creat Clear Calc 62.3 Estimated GFR 58 POC Glucose 156 H 200 H Random Glucose Calcium Random Vancomycin 02/10/22 02/10/22 02/10/22 08:28 08:28 08:28 WBC 7.7 RBC 3.74 L Hgb 10.6 L Hct 32.8 L MCV 87.7 MCH 28.3 MCHC 32.3 RDW 16.5 H Plt Count 135 L MPV 11.8 Absolute Nucleated RBC 0.000 Nucleated RBC % (auto) 0.0 Sodium 136 Potassium 3.7 Chloride 102 Carbon Dioxide 26 Anion Gap 12 BUN 25 H Creatinine 1.24 Estim Creat Clear Calc 61.8 Estimated GFR 57 POC Glucose Random Glucose 213 H D Calcium 8.0 L Random Vancomycin 13.9 L 02/10/22 11:09 WBC RBC Hgb Hct MCV MCH MCHC RDW Plt Count MPV Absolute Nucleated RBC Nucleated RBC % (auto) Sodium Potassium Chloride Carbon Dioxide Anion Gap BUN Creatinine Estim Creat Clear Calc Estimated GFR POC Glucose 240 H Random Glucose Calcium Random Vancomycin Microbiology Microbiology Results: Microbiology 02/07/22 04:20 Blood - Venous Blood Culture - Final Streptococcus group c 02/07/22 04:20 Blood - Venous Blood Culture - Final Streptococcus group c Procedures Date of Service Date of Service: 02/10/22 Assessment & Plan Assessment and plan (1) HUGO (acute kidney injury): Status: Acute Plan 71-year-old male with acute kidney injury. Patient likely to have prerenal azotemia. He was clinically volume depleted. He was on diuretic, Lasix which could have also contributed to his renal insufficiency. In the absence of hematuria/pyuria, I doubt the patient has acute GN/interstitial disease. Plan: #) HUGO, non-oliguric: Continue to hold acei, Lasix. Renal panel daily. Monitor K, loklema 10G prn K> 5.0 Mild metabolic acidosis with non-anion gap type. Improved with IVF?s. F/U on vancomycin levels. #) CKD stage 3 at baseline in the setting of longstanding hypertension, diabetes, possible renovascular disease. Check pth, phos, Iron panel. Hold iv iron. #) Cellulitis of the lower extremity. Renal dosing abx. Thank you for allowing me to participate in medical management of the patient. Time Spent With Patient Time: Total time spent is greater than 50% in coordination of care (as documented) at patient's floor/unit and/or counseling patient: Progress Note: Quality Stroke Does the patient have a stroke diagnosis?: No
[2022-02-10] MEDS: Omeprazole 20 MG CAPSULE.DR PO (16:42)
[2022-02-10] MEDS: Tamsulosin HCL 0.4 MG CAPSULE PO (16:42)
[2022-02-10] MEDS: cefTRIAXone sodium 2 GM in 0.9 % Sodium Chloride 50 ML IV (16:42)
[2022-02-10 19:08] VITALS: BP 146/67; PULSE 70; RESP 18; TEMP 36.6; O2SAT 95
[2022-02-10] MEDS: Atorvastatin Calcium 80 MG TABLET PO (19:37)
[2022-02-10] MEDS: Ezetimibe 10 MG TABLET PO (19:37)
[2022-02-10 23:47] VITALS: BP 143/62; PULSE 70; RESP 16; TEMP 36.7; O2SAT 94
[2022-02-11 02:56] VITALS: BP 132/57; PULSE 72; RESP 16; TEMP 36.4; O2SAT 95
[2022-02-11] MEDS: Piperacillin Sodium/Tazobactam 3.375 GM in 0.9 % Sodium Chloride 50 ML IV ×4 (04:51→21:45)
[2022-02-11] MEDS: Omeprazole 20 MG CAPSULE.DR PO ×2 (04:52→16:13)
[2022-02-11 06:25] LABS: Hematocrit 31.7 % (42.0-52.0); Hemoglobin 10.2 g/dl (14.0-18.0); Mean Corpuscular HGB Conc 32.2 g/dl (31.0-36.0); Mean Corpuscular Hemoglobin 28.2 pg (27.0-33.0); Mean Corpuscular Volume 87.6 fL (80.0-98.0); Mean Platelet Volume 10.3 fL (9.4-12.4); Platelet Count 126 X10*3/uL (160-400); Red Blood Count 3.62 X10*6/uL (4.60-5.80); Red Cell Distribution Width 16.5 % (11.0-16.0); White Blood Count 7.1 X10*3/uL (4.8-10.8)
[2022-02-11 06:50] LABS: Anion Gap 13 (12-20); Blood Urea Nitrogen 20 mg/dL (9-16); Carbon Dioxide 25 mmol/L (22-29); Chloride 104 mmol/L (96-108); Creatinine Clr Calc Pharmacy 66.6; Estimated Glomerular Filt Rate > 60; Glucose Random 178 mg/dL (60-115); Potassium 3.6 mmol/L (3.3-5.1); Sodium 138 mmol/L (135-145)
[2022-02-11 07:42] VITALS: BP 149/72; PULSE 69; RESP 20; TEMP 36.4; O2SAT 95
--- NOTE | 2022-02-11 07:55 | HO.PM.IMPN ---
Subjective Subjective Date of Service: 02/11/22 Interval History: Strep group C bacteremia recurrent.? Left leg cellulitis, hugo Review of Systems leg erythema also improving.? Denies any chest pain or shortness of breath or abdominal pain or fever chills or cough or phlegm Physical Exam Vital Signs: Vital Signs: Last Vital Signs Temp 97.6 F 02/11/22 07:42 Pulse 69 02/11/22 07:42 Resp 20 02/11/22 07:42 BP 149/72 H 02/11/22 07:42 Pulse Ox 95 02/11/22 07:42 BMI result Body Mass Index 28.5 Appearance: Alert.? Oriented X3. cvs: irregular rythem, [id number]. res:fair air netry,no rales or wheezing. abd: no rebound or guarding ,nt, bs present. ext pulses present , no cyanosis right leg swleling and bruise ,erythema/swelling improving left foot bottom -had ulcer (? chronic) -no discharge . buttock area -mild erythema , itching, does not seems pressure injury ,moniter neuro: axo3 , nonfocal. Objective Data Active Medications Apixaban (Apixaban 5 Mg Tablet) 5 mg PO BID [facility] Last Admin: 02/10/22 19:37 Dose: 5 mg Documented by: SMILEY Atorvastatin Calcium (Atorvastatin Calcium 80 Mg Tablet) 80 mg PO BEDTIME [facility] Last Admin: 02/10/22 19:37 Dose: 80 mg Documented by: SMILEY Dextrose (Dextrose 50 % 25 Gm/50 Ml Syringe) 25 gm IVPUSH Q15M PRN; Protocol PRN Reason: per Hypoglycemia Standing Ord. Docusate Sodium (Docusate Sodium 100 Mg Capsule) 100 mg PO BID [facility] Last Admin: 02/10/22 19:36 Dose: 100 mg Documented by: SMILEY Ezetimibe (Ezetimibe 10 Mg Tablet) 10 mg PO BEDTIME [facility] Last Admin: 02/10/22 19:37 Dose: 10 mg Documented by: MSILEY Furosemide (Furosemide 40 Mg Tablet) 40 mg PO DAILY [facility]; Protocol Last Admin: 02/09/22 10:01 Dose: 40 mg Documented by: EFRAIN Glucose (Glucose Gel 15 Gm Gel..Gram.) 15 gm PO Q15M PRN; Protocol PRN Reason: per Hypoglycemia Standing Ord. Piperacillin Sod/Tazobactam (Sod 3.375 gm/ Sodium Chloride) 50 mls @ 100 mls/hr IV Q6H [facility] Last Infusion: 02/11/22 05:21 Dose: 0 mls/hr Documented by: SMILEY Ceftriaxone Sodium 2 gm/ (Sodium Chloride) 50 mls @ 100 mls/hr IV Q24H [facility] Last Infusion: 02/10/22 17:41 Dose: 0 mls/hr Documented by: KIMBERLEY Insulin Glargine (Insulin Glargine,Hum.Rec.Anlog 100 Unit/Ml 10 Ml Vial) 22 unit SUBCUT DAILY [facility] Last Admin: 02/10/22 07:38 Dose: 22 unit Documented by: KIMBERLEY Insulin Human Lispro (Insulin Lispro 100 Unit/Ml 3 Ml Vial) 0 unit SUBCUT QIDACHS [facility]; Protocol Last Admin: 02/10/22 20:22 Dose: 4 unit Documented by: SMILEY Levothyroxine Sodium (Levothyroxine Sodium 50 Mcg Tablet) 50 mcg PO Q2D@0630 [facility] Last Admin: 02/10/22 05:14 Dose: Not Given Documented by: SMILEY Non-Admin Reason: NPO Magnesium Oxide (Magnesium Oxide 400 Mg Tablet) 400 mg PO TID [facility] Last Admin: 02/10/22 19:37 Dose: 400 mg Documented by: SMILEY Metoprolol Succinate (Metoprolol Succinate Er 25 Mg Tab.Er.24h) 25 mg PO DAILY [facility]; Protocol Last Admin: 02/10/22 07:37 Dose: 25 mg Documented by: KIMBERLEY Omeprazole (Omeprazole 20 Mg Capsule.) 20 mg PO BID@0630,1630 [facility] Last Admin: 02/11/22 04:52 Dose: 20 mg Documented by: SMILEY Pharmacy Consult (Consult Rx Perform Med Rec) 1 each MISCELLANE ONCE PRN PRN Reason: Consult order Sodium Chloride (0.9 % Sodium Chloride Flush 3 Ml Syringe) 3 ml IVFLUSH QSHIFT [facility] Last Admin: 02/10/22 19:37 Dose: 3 ml Documented by: SMILEY Tamsulosin HCl (Tamsulosin Hcl 0.4 Mg Capsule) 0.4 mg PO DAILY@1700 [facility] Last Admin: 02/10/22 16:42 Dose: 0.4 mg Documented by: KIMBERLEY Labs CBC & Chem 7: 02/11/22 06:09 02/11/22 06:09 Labs: Laboratory Results - last 24 hr 02/07/22 02/07/22 02/07/22 10:53 13:44 21:07 MCV MCH MCHC RDW Plt Count MPV Absolute Nucleated RBC Nucleated RBC % (auto) Anion Gap Estim Creat Clear Calc Estimated GFR POC Glucose 228 H 224 H 212 H Random Glucose Calcium Random Vancomycin 02/08/22 02/08/22 02/08/22 07:40 10:57 15:36 MCV MCH MCHC RDW Plt Count MPV Absolute Nucleated RBC Nucleated RBC % (auto) Anion Gap Estim Creat Clear Calc Estimated GFR POC Glucose 176 H 214 H 241 H Random Glucose Calcium Random Vancomycin 02/08/22 02/08/22 02/08/22 16:37 19:53 21:34 MCV MCH MCHC RDW Plt Count MPV Absolute Nucleated RBC Nucleated RBC % (auto) Anion Gap Estim Creat Clear Calc Estimated GFR POC Glucose 231 H 192 H 207 H Random Glucose Calcium Random Vancomycin 02/09/22 02/09/22 02/09/22 07:08 11:37 15:48 MCV MCH MCHC RDW Plt Count MPV Absolute Nucleated RBC Nucleated RBC % (auto) Anion Gap Estim Creat Clear Calc Estimated GFR POC Glucose 135 H 211 H 209 H Random Glucose Calcium Random Vancomycin 02/09/22 02/10/22 02/10/22 18:59 07:17 08:28 MCV MCH MCHC RDW Plt Count MPV Absolute Nucleated RBC Nucleated RBC % (auto) Anion Gap Estim Creat Clear Calc 62.3 Estimated GFR 58 POC Glucose 156 H 200 H Random Glucose Calcium Random Vancomycin 02/10/22 02/10/22 02/10/22 08:28 08:28 08:28 MCV 87.7 MCH 28.3 MCHC 32.3 RDW 16.5 H Plt Count 135 L MPV 11.8 Absolute Nucleated RBC 0.000 Nucleated RBC % (auto) 0.0 Anion Gap 12 Estim Creat Clear Calc 61.8 Estimated GFR 57 POC Glucose Random Glucose 213 H D Calcium 8.0 L Random Vancomycin 13.9 L 02/10/22 02/11/2222 11:09 06:09 06:09 MCV 87.6 MCH 28.2 MCHC 32.2 RDW 16.5 H Plt Count 126 L MPV 10.3 Absolute Nucleated RBC 0.000 Nucleated RBC % (auto) 0.0 Anion Gap 13 Estim Creat Clear Calc 66.6 Estimated GFR > 60 POC Glucose 240 H Random Glucose 178 H Calcium 8.0 L Random Vancomycin Microbiology Microbiology Results: Microbiology 02/09/22 14:57 Blood Culture - Preliminary Blood - Venous No growth after 24 hours. 02/09/22 14:52 Blood Culture - Preliminary Blood - Venous No growth after 24 hours. 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 1. possible sepsis? secondary to cellulitis/bacteremia ?tachypnea and fever resolved , leukocytosis. Blood culture - Gram-positive cocci. repeat blood cultures added. Previous blood culture were Streptococcus group C during last admission. Blood culture again come back 6 Streptococcus group C sensitive to ceftriaxone.? Repeat blood culture neg @24hrs Id eval -Mri foot done -noted?least focal osteomyelitis involving the proximal 4th metatarsal/Findings indicative of an infection in the forefoot. There is a superficial ulceration with sinus tract communicating with an abscess abutting the 4th metatarsal ? ?echo: Conclusions: - Normal left ventricular size and systolic function. There is ? mildly increased left ventricular wall thickness.? The visually? estimated ejection fraction is between 55-60%. ? - There is a flattened septum in systole and diastole consistent with right ventricular pressure and volume overload. ? - Moderately increased right ventricular cavity size.? There is? moderate to severely decreased right ventricular systolic? function.? - A bioprosthetic aortic valve is present.? The prosthetic aortic valve appears to be functioning normally.? - severe mitral annular calcification with some mobile MAC noted in some views. this is likely due to mobile mitral annular ? calcification and a vegetation is less likely.? Id suggested to switch to iv ceftriaxone day2as per above blood cultures . Discussed with ID and cardio:? Will start with the answers thoracic echo to see any cardiac valve in or meant. suregry eval-noted , continue current antibiotics ,no further surgical interventions 2. afib:hr rate fluctiuting-in 30-40? asymptomatic ?Underlying AFib on anticoagulation continue Eliquis. hold metoprolol will hold that. Cardio evaluation-for recurrent bacteremia Streptococcus C, heart rate improving Cardiology follow up. 3. thombocytopenia :? Probably chronic, fluctuating platelets level.? Will continue to monitor. 4. dm:fs 135-200. fs with coverage 5. HLP:? atorvastatin. 6. Hypertension:? Blood pressure is acceptable Hold lisinopril due to HUGO. 7. HUGO: Patient received fluid in the ED, Seen by Nephrology, improved with hydration-initially received IV, encouraged for p.o. hydration,? to monitor. 8. buttock area : Does not seem like pressure injury, ordered nystatin powder, continue to monitor, frequent turning, out of bed to chair, continue nursing care. Need for inpatient:? Streptococcus group C bacteremia recurrent, foot osteomyelitis on iv natibiotics Quality Stroke Does the patient have a stroke diagnosis?: No VTE Prior VTE?: No VTE Risk Level:: Medical - moderate - high VTE Device Contraindication: N/A - Device Ordered VTE Drug Contraindication: N/A - Med Ordered
[2022-02-11 08:35] LABS: Glucose, Whole Blood 166 mg/dL (60-115)
[2022-02-11 08:37] LABS: Glucose, Whole Blood 240 mg/dL (60-115)
[2022-02-11 08:37] LABS: Glucose, Whole Blood 216 mg/dL (60-115)
[2022-02-11] MEDS: Magnesium Oxide 400 MG TABLET PO ×3 (08:45→21:45)
[2022-02-11] MEDS: Metoprolol Succinate ER 25 MG TAB.ER.24H PO (08:45)
[2022-02-11] MEDS: Docusate Sodium 100 MG CAPSULE PO ×2 (08:45→21:45)
[2022-02-11] MEDS: Insulin Lispro 100 UNIT/ML 3 ML VIAL SUBCUT ×4 (08:46→21:52)
[2022-02-11] MEDS: 0.9 % Sodium Chloride Flush 3 ML SYRINGE IVFLUSH ×3 (08:46→21:45)
[2022-02-11] MEDS: Apixaban 5 MG TABLET PO ×2 (08:46→21:44)
[2022-02-11] MEDS: Insulin Glargine,Hum.rec.anlog 100 UNIT/ML 10 ML VIAL 22 UNIT SUBCUT (08:46)
[2022-02-11 11:54] VITALS: BP 148/71; PULSE 58; RESP 20; TEMP 36.3; O2SAT 95
--- NOTE | 2022-02-11 13:53 | PM.PNCARD ---
Subjective Subjective Date of Service: 02/11/22 <JAMILA Lynch - Last Filed: 02/11/22 14:11> 02/11/22 <Elvin Mancilla MD - Last Filed: 02/11/22 16:01> Principal diagnosis: bacteremia, hx Bio AVR <JAMILA Lynch - Last Filed: 02/11/22 14:11> Interval history: Seen at 1100. Today he reports feeling good. No sob, chest pains, palpitation, dizziness. Has not been out of bed yet. Leg wounds are healing. Has gauze dressing around left foot/ ankle. No fever. <JAMILA Lynch - Last Filed: 02/11/22 14:11> Review of Systems Review of Systems as above <JAMILA Lynch - Last Filed: 02/11/22 14:11> Yes all other systems are reviewed and are negative <JAMILA Lynch - Last Filed: 02/11/22 14:11> Physical Exam Vital Signs: Last Vital Signs Temp 97.4 F 02/11/22 11:54 Pulse 58 02/11/22 11:54 Resp 20 02/11/22 11:54 BP 148/71 H 02/11/22 11:54 Pulse Ox 95 02/11/22 11:54 BMI result Body Mass Index 28.5 <JAMILA Lynch - Last Filed: 02/11/22 14:11> Const General: cooperative, no acute distress, alert and awake <JAMILA Lynch - Last Filed: 02/11/22 14:11> Orientation/consciousness: patient oriented x3 <JAMILA Lynch - Last Filed: 02/11/22 14:11> Neck Neck: Yes JVD <JAMILA Lynch Last Filed: 02/11/22 14:11> Resp Effort & Inspection: normal respiratory effort and able to speak in complete sentences <JAMILA Lynch Last Filed: 02/11/22 14:11> Auscultation: clear to auscultation bilaterally, no crackles, no rales, no rhonchi and no wheezes <JAMILA Lynch - Last Filed: 02/11/22 14:11> Cardio Jugular venous distension: JVD present <JAMILA Lynch - Last Filed: 02/11/22 14:11> Rate: regular rate <JAMILA Lynch Last Filed: 02/11/22 14:11> Rhythm: regular rhythm <JAMILA Lynch Last Filed: 02/11/22 14:11> Heart sounds: S1 normal heart sound present and S2 normal heart sound present <JAMILA Lynch - Last Filed: 02/11/22 14:11> Peripheral pulses: Peripheral pulses 2+ throughout <JAMILA Lynch - Last Filed: 02/11/22 14:11> GI Inspection: Yes normal to inspection <JAMILA Lynch - Last Filed: 02/11/22 14:11> Neuro General: patient oriented x3 <JAMILA Lynch - Last Filed: 02/11/22 14:11> Extrem General: Yes normal to inspection and No edema <JAMILA Lynch - Last Filed: 02/11/22 14:11> Objective Labs and Meds Result diagrams: : 02/11/22 06:09 02/11/22 06:09 <AJMILA Lynch - Last Filed: 02/11/22 14:11> Lab results: Laboratory Results - last 24 hr 02/10/22 02/10/22 02/11/22 16:25 20:11 06:09 WBC 7.1 RBC 3.62 L Hgb 10.2 L Hct 31.7 L MCV 87.6 MCH 28.2 MCHC 32.2 RDW 16.5 H Plt Count 126 L MPV 10.3 Absolute Nucleated RBC 0.000 Nucleated RBC % (auto) 0.0 Sodium Potassium Chloride Carbon Dioxide Anion Gap BUN Creatinine Estim Creat Clear Calc Estimated GFR POC Glucose 240 H 216 H Random Glucose Calcium 02/11/22 02/11/22 06:09 07:15 WBC RBC Hgb Hct MCV MCH MCHC RDW Plt Count MPV Absolute Nucleated RBC Nucleated RBC % (auto) Sodium 138 Potassium 3.6 Chloride 104 Carbon Dioxide 25 Anion Gap 13 BUN 20 H Creatinine 1.15 Estim Creat Clear Calc 66.6 Estimated GFR > 60 POC Glucose 166 H Random Glucose 178 H Calcium 8.0 L <JAMILA Lynch - Last Filed: 02/11/22 14:11> Progress Note: A&P Assessment and plan (1) Bacteremia: Status: Acute <Arabella Alvarado JAMILA Romero - Last Filed: 02/11/22 14:11> Assessment and Plan: Bacteremia this admit. Has leg, foot wounds which are likely source. Has hx of endocarditis, has Bio AVR in place.Being followed by hospitalist and ID. Has been receiving IV antibiotics. Last blood cultures 02/09 show no growth. WBC down to normal range. Afebrile. Echo showed EF 55-60%, RV volume overload, flattened septum, mod to severe decrease in RV systolic function, Bio AVR functioning normally, mitral annular calcification with some mobile MAC in some views - mostly like mobile MAC and less likely vegetation. Will plan for DEREK if clinically indicated. We will follow. <JAMILA Lynch - Last Filed: 02/11/22 14:11> (2) Group C streptococcal infection: Status: Acute <JAMILA Lynch - Last Filed: 02/11/22 14:11> (3) Status post aortic valve replacement with bioprosthetic valve: Status: Acute <JAMILA Lynch - Last Filed: 02/11/22 14:11> (4) Afib: Status: Acute <JAMILA Lynch - Last Filed: 02/11/22 14:11> Assessment and Plan: Hx of persistent afib. EKG and tele this admit showing SR with SA. On Metoprolol for rate control. On Eliquis for anticoagulation. Continue current tx <JAMILA Lynch - Last Filed: 02/11/22 14:11> (5) Fluid overload: Status: Acute <JAMILA Lynch - Last Filed: 02/11/22 14:11> Assessment and Plan: Had HUGO on admit. His home Lasix has been on hold. Echo shows evidence of fluid volume overload. He has JVD on exam. His Cr had been 1.5 initially and down to 1.15. Being followed by nephrology. Note reviewed. - We recommend a restart of Lasix with close monitoring of kidney function. <JAMILA Lynch - Last Filed: 02/11/22 14:11> Plan Patient seen and examined at bedside. Blood cultures are negative at this stage. The concern is that he has recurrent bacteremia with the same bacteria. Transthoracic echocardiogram did not show any obvious issues but obviously had its own limitations. I have discussed with infectious disease and also discussed in detail with the patient and we have decided to do a DEREK on him. We will arrange this for tomorrow. We will follow along with you. Thank you for allowing me to participate in the care of your patient. Please feel free to contact me if you have any questions. <Elvin Mancilla MD - Last Filed: 02/11/22 16:01> Time Spent With Patient Time: Total time spent is greater than 50% in coordination of care (as documented) at patient's floor/unit and/or counseling patient: 20 <JAMILA Lynch - Last Filed: 02/11/22 14:11> Progress Note: Quality Stroke Does the patient have a stroke diagnosis?: No <JAMILA Lynch - Last Filed: 02/11/22 14:11> Procedures Date of Service Date of Service: 02/11/22 <JAMILA Lynch - Last Filed: 02/11/22 14:11>
--- NOTE | 2022-02-11 14:10 | PM.IDPN ---
Subjective Subjective Date of Service: 02/11/22 Critical Care Time (minutes): 15 Comment: He has no complaints Objective Data Labs CBC & Chem 7: 02/11/22 06:09 02/11/22 06:09 Labs: Laboratory Results - last 24 hr 02/10/22 02/10/22 02/11/22 16:25 20:11 06:09 WBC 7.1 RBC 3.62 L Hgb 10.2 L Hct 31.7 L MCV 87.6 MCH 28.2 MCHC 32.2 RDW 16.5 H Plt Count 126 L MPV 10.3 Absolute Nucleated RBC 0.000 Nucleated RBC % (auto) 0.0 Sodium Potassium Chloride Carbon Dioxide Anion Gap BUN Creatinine Estim Creat Clear Calc Estimated GFR POC Glucose 240 H 216 H Random Glucose Calcium 02/11/22 02/11/22 06:09 07:15 WBC RBC Hgb Hct MCV MCH MCHC RDW Plt Count MPV Absolute Nucleated RBC Nucleated RBC % (auto) Sodium 138 Potassium 3.6 Chloride 104 Carbon Dioxide 25 Anion Gap 13 BUN 20 H Creatinine 1.15 Estim Creat Clear Calc 66.6 Estimated GFR > 60 POC Glucose 166 H Random Glucose 178 H Calcium 8.0 L Microbiology Microbiology Results: Microbiology 02/09/22 14:57 Blood - Venous Blood Culture - Preliminary No growth after 24 hours. 02/09/22 14:52 Blood - Venous Blood Culture - Preliminary No growth after 24 hours. 02/07/22 04:20 Blood - Venous Blood Culture - Final Streptococcus group c 02/07/22 04:20 Blood - Venous Blood Culture - Final Streptococcus group c Physical Exam Vital Signs: Vital Signs: Last Vital Signs Temp 97.4 F 02/11/22 11:54 Pulse 58 02/11/22 11:54 Resp 20 02/11/22 11:54 BP 148/71 H 02/11/22 11:54 Pulse Ox 95 02/11/22 11:54 BMI result Body Mass Index 28.5 Const: General: cooperative Eyes: General: appearance normal, both eyes and all related structures Pupils: Equal, round and reactive pupils present Resp: Effort & Inspection: normal respiratory effort Cardio: Rate: regular rate Rhythm: regular rhythm GI: Palpation (GI): Soft to palpation and nontender Neuro: Cranial nerves: Yes Equal, round and reactive pupils present Extrem: Other: foot wrapped,no cellulitis Assessment and Plan Assessment and plan (1) Group C streptococcal infection: Problem details: Finish IV Ceftriaxone 2 g daily for six weeks and then po PCN 250 mg bid indefinitely. But there is concern over endocarditis. Status: Acute Assessment and Plan: DEREK evaluate prosthetic valve and valve ring. Otherwise continue plan as above. It is concerning that Group C strep is recurrent and foot may likely be source as shows proximal fourth metatarsal osteomyelitis. (2) HUGO (acute kidney injury): Status: Acute Time Spent With Patient Time: Total time spent is greater than 50% in coordination of care (as documented) at patient's floor/unit and/or counseling patient:
[2022-02-11] MEDS: Nystatin Powder 15 GM BOTTLE 1 APPL TOPICAL ×2 (15:02→21:49)
[2022-02-11 15:16] VITALS: BP 144/73; PULSE 62; RESP 18; TEMP 36.8; O2SAT 97
[2022-02-11] MEDS: Furosemide 40 MG TABLET PO (16:13)
[2022-02-11] MEDS: Tamsulosin HCL 0.4 MG CAPSULE PO (16:31)
[2022-02-11] MEDS: cefTRIAXone sodium 2 GM in 0.9 % Sodium Chloride 50 ML IV (16:31)
[2022-02-11] MEDS: Furosemide 20 MG/2 ML VIAL IVPUSH (18:08)
[2022-02-11 19:39] VITALS: BP 138/62; PULSE 57; RESP 18; TEMP 36.7; O2SAT 96
[2022-02-11] MEDS: Ezetimibe 10 MG TABLET PO (21:44)
[2022-02-11] MEDS: Atorvastatin Calcium 80 MG TABLET PO (21:45)
[2022-02-11 23:29] VITALS: BP 126/61; PULSE 58; RESP 17; TEMP 36.9; O2SAT 94
[2022-02-12] VITALS (8 sets, daily range): BP systolic 99–166; BP diastolic 32–69; PULSE 47–66; RESP 15–18; TEMP 36.1–37.7; O2SAT 92–99
[2022-02-12] MEDS: Piperacillin Sodium/Tazobactam 3.375 GM in 0.9 % Sodium Chloride 50 ML IV ×3 (05:28→23:57)
[2022-02-12 06:46] LABS: Glucose, Whole Blood 232 mg/dL (60-115)
[2022-02-12 06:47] LABS: Glucose, Whole Blood 235 mg/dL (60-115)
[2022-02-12 06:48] LABS: Glucose, Whole Blood 253 mg/dL (60-115)
[2022-02-12 07:17] LABS: Creatinine Clr Calc Pharmacy 58.9; Estimated Glomerular Filt Rate 54
--- NOTE | 2022-02-12 08:26 | HO.PM.IMPN ---
Subjective Subjective Date of Service: 02/12/22 Interval History: strep c bacteremia,ckd Review of Systems Erythema of leg improved significantly, denies any chest pain or shortness of breath or abdominal pain or fever chills or cough or phlegm. Physical Exam Vital Signs: Vital Signs: Last Vital Signs Temp 97.5 F 02/12/22 07:18 Pulse 66 02/12/22 07:18 Resp 18 02/12/22 07:18 BP 140/65 H 02/12/22 07:18 Pulse Ox 95 02/12/22 07:18 BMI result Body Mass Index 28.5 Appearance: Alert.? Oriented X3. cvs: irregular rythem, [id number]. res:fair air netry,no rales or wheezing. abd: no rebound or guarding ,nt, bs present. ext pulses present , no cyanosis right leg swleling and bruise ,erythema/swelling improving left foot bottom -had ulcer (? chronic) -no discharge , no erythema dry buttock area -mild erythema , itching, does not seems pressure injury ,moniter neuro: axo3 , nonfocal. Objective Data Active Medications Apixaban (Apixaban 5 Mg Tablet) 5 mg PO BID [facility] Last Admin: 02/11/22 21:44 Dose: 5 mg Documented by: EDDI Atorvastatin Calcium (Atorvastatin Calcium 80 Mg Tablet) 80 mg PO BEDTIME [facility] Last Admin: 02/11/22 21:45 Dose: 80 mg Documented by: EDDI Dextrose (Dextrose 50 % 25 Gm/50 Ml Syringe) 25 gm IVPUSH Q15M PRN; Protocol PRN Reason: per Hypoglycemia Standing Ord. Docusate Sodium (Docusate Sodium 100 Mg Capsule) 100 mg PO BID [facility] Last Admin: 02/11/22 21:45 Dose: 100 mg Documented by: EDDI Ezetimibe (Ezetimibe 10 Mg Tablet) 10 mg PO BEDTIME [facility] Last Admin: 02/11/22 21:44 Dose: 10 mg Documented by: EDDI Furosemide (Furosemide 20 Mg/2 Ml Vial) 20 mg IVPUSH BID@0900,1800 [facility] Last Admin: 02/11/22 18:08 Dose: 20 mg Documented by: SUPA Glucose (Glucose Gel 15 Gm Gel..Gram.) 15 gm PO Q15M PRN; Protocol PRN Reason: per Hypoglycemia Standing Ord. Piperacillin Sod/Tazobactam (Sod 3.375 gm/ Sodium Chloride) 50 mls @ 100 mls/hr IV Q6H [facility] Last Infusion: 02/12/22 06:03 Dose: 0 mls/hr Documented by: EDDI Ceftriaxone Sodium 2 gm/ (Sodium Chloride) 50 mls @ 100 mls/hr IV Q24H [facility] Last Infusion: 02/11/22 17:18 Dose: 0 mls/hr Documented by: SUPA Insulin Glargine (Insulin Glargine,Hum.Rec.Anlog 100 Unit/Ml 10 Ml Vial) 22 unit SUBCUT DAILY [facility] Last Admin: 02/11/22 08:46 Dose: 22 unit Documented by: SUPA Insulin Human Lispro (Insulin Lispro 100 Unit/Ml 3 Ml Vial) 0 unit SUBCUT QIDACHS [facility]; Protocol Last Admin: 02/12/22 07:38 Dose: Not Given Documented by: MARILYN Non-Admin Reason: No Insulin Coverage Levothyroxine Sodium (Levothyroxine Sodium 50 Mcg Tablet) 50 mcg PO Q2D@0630 [facility] Last Admin: 02/12/22 05:29 Dose: Not Given Documented by: EDDI Non-Admin Reason: NPO Magnesium Oxide (Magnesium Oxide 400 Mg Tablet) 400 mg PO TID [facility] Last Admin: 02/11/22 21:45 Dose: 400 mg Documented by: EDDI Metoprolol Succinate (Metoprolol Succinate Er 25 Mg Tab.Er.24h) 25 mg PO DAILY [facility]; Protocol Last Admin: 02/11/22 08:45 Dose: 25 mg Documented by: SUPA Nystatin (Nystatin Powder 15 Gm Bottle) 1 appl TOPICAL BID [facility]; Protocol Last Admin: 02/11/22 21:49 Dose: 1 appl Documented by: EDDI Omeprazole (Omeprazole 20 Mg Capsule.Dr) 20 mg PO BID@0630,1630 [facility] Last Admin: 02/12/22 05:29 Dose: Not Given Documented by: EDDI Non-Admin Reason: Nausea Pharmacy Consult (Consult Rx Perform Med Rec) 1 each MISCELLANE ONCE PRN PRN Reason: Consult order Sodium Chloride (0.9 % Sodium Chloride Flush 3 Ml Syringe) 3 ml IVFLUSH QSHIFT [facility] Last Admin: 02/11/22 21:45 Dose: 3 ml Documented by: CHLOEAZ Tamsulosin HCl (Tamsulosin Hcl 0.4 Mg Capsule) 0.4 mg PO DAILY@1700 [facility] Last Admin: 02/11/22 16:31 Dose: 0.4 mg Documented by: BHANU-SOFFA Labs CBC & Chem 7: 02/11/22 06:09 02/12/22 06:44 Labs: Laboratory Results - last 24 hr 02/10/22 02/10/22 02/11/22 16:25 20:11 07:15 Estim Creat Clear Calc Estimated GFR POC Glucose 240 H 216 H 166 H 02/11/22 02/11/22 02/11/22 11:33 15:56 20:04 Estim Creat Clear Calc Estimated GFR POC Glucose 235 H 253 H 232 H 02/12/22 06:44 Estim Creat Clear Calc 58.9 Estimated GFR 54 POC Glucose Microbiology Microbiology Results: Microbiology 02/09/22 14:57 Blood Culture - Preliminary Blood - Venous No growth after 48 hours. 02/09/22 14:52 Blood Culture - Preliminary Blood - Venous No growth after 48 hours. 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 1. possible sepsis? secondary to cellulitis/bacteremia ?tachypnea and fever resolved , leukocytosis. Blood culture - Gram-positive cocci. repeat blood cultures added. Previous blood culture were Streptococcus group C during last admission. Blood culture again come back 6 Streptococcus group C sensitive to ceftriaxone.? Repeat blood culture neg @ 48 hours Id eval -Mri foot done -noted?least focal osteomyelitis involving the proximal 4th metatarsal/Findings indicative of an infection in the forefoot. There is a superficial ulceration with sinus tract communicating with an abscess abutting the 4th metatarsal ? ?echo: Conclusions: - Normal left ventricular size and systolic function. There is ? mildly increased left ventricular wall thickness.? The visually? estimated ejection fraction is between 55-60%. ? - There is a flattened septum in systole and diastole consistent with right ventricular pressure and volume overload. ? - Moderately increased right ventricular cavity size.? There is? moderate to severely decreased right ventricular systolic? function.? - A bioprosthetic aortic valve is present.? The prosthetic aortic valve appears to be functioning normally.? - severe mitral annular calcification with some mobile MAC noted in some views. this is likely due to mobile mitral annular ? calcification and a vegetation is less likely.? Id suggested to switch to iv ceftriaxone day3 as per above blood cultures . suregry eval-noted , continue current antibiotics ,no further surgical interventions Patient is to follow up outpatient with surgery in [facility]-doctor Yousif. DEREK-grossly no vegetation preliminary Discussed with ID and about cardio. Will continue IV antibiotics for 6 weeks, PICC line order placed. 2. 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 hold metoprolol will hold that. Cardio evaluation-for recurrent bacteremia Streptococcus C, heart rate improving Cardiology follow up. 3. thombocytopenia :? Probably chronic, fluctuating platelets level.? Will continue to monitor. 4. dm:fs 135-200. fs with coverage 5. HLP:? atorvastatin. 6. Hypertension:? Blood pressure is acceptable Hold lisinopril due to HUGO. 7. HUGO: Patient received fluid in the ED, Seen by Nephrology, improved with hydration-initially received IV, encouraged for p.o. hydration,? to monitor. 8. buttock area : Does not seem like pressure injury, ordered nystatin powder, continue to monitor, frequent turning, out of bed to chair, continue nursing care. Need for inpatient:? Streptococcus group C bacteremia recurrent, foot osteomyelitis on iv antibiotics-need picc and need infusion set up. Quality Stroke Does the patient have a stroke diagnosis?: No VTE Prior VTE?: No VTE Risk Level:: Medical - moderate - high VTE Device Contraindication: N/A - Device Ordered VTE Drug Contraindication: N/A - Med Ordered
[2022-02-12 08:37] LABS: Glucose, Whole Blood 143 mg/dL (60-115)
[2022-02-12] MEDS: Metoprolol Succinate ER 25 MG TAB.ER.24H PO (09:07)
[2022-02-12] MEDS: Apixaban 5 MG TABLET PO ×2 (09:07→21:27)
[2022-02-12] MEDS: 0.9 % Sodium Chloride Flush 3 ML SYRINGE IVFLUSH ×2 (09:08→21:29)
--- NOTE | 2022-02-12 09:20 | MHC.CM.PN ---
Male 71 DX AFIB + Cellulitis At discharge he will require IV ABX. [facility] has been referred. The [facility]ason will be coming in to teach the patient home infusion today. VNA preferences obtained and referrals sent. Patient requests that he receive the IV ABX (6 weeks) at his home in [place]. [facility] has been notified. They are checking availability of their infusion nurses. The patient may not need a VNA in [place], if [facility] can cover this case.
--- NOTE | 2022-02-12 10:22 | HO.ANESPROP2 ---
[facility] Active Problems Active Problems: All Active Problems (Updated 02/11/22 @ 14:12 by Tequila Kang MD) Fluid overload (Acute) Chronic kidney disease, unspecified (Acute) Group C streptococcal infection (Acute) Uncontrolled diabetes mellitus with hyperglycemia (Acute) HUGO (acute kidney injury) (Acute) Status post aortic valve replacement with bioprosthetic valve (Acute ~01/2019) Persistent atrial fibrillation (Acute) Bacteremia (Acute) Afib (Acute) Diabetic foot ulcer (Acute) Cellulitis (Acute) Chronic right heart failure (Acute) Pulmonary nodule (Acute) HIT (heparin-induced thrombocytopenia) (Acute ~2019) Hemorrhage of gastrointestinal tract, unspecified (Acute) Endocarditis of aortic valve (Acute) Past Medical History Medical History (Updated 02/11/22 @ 14:12 by Tequila Kang MD) Atrial fibrillation Chronic kidney disease, unspecified Coronary artery disease Diabetic foot ulcer Endocarditis of aortic valve Essential hypertension Group C streptococcal infection Hemorrhage of gastrointestinal tract, unspecified History of hemodialysis HIT (heparin-induced thrombocytopenia) (~2018) Hyperlipidemia, unspecified Hypomagnesemia Hypothyroidism Persistent atrial fibrillation Pulmonary nodule Type 2 diabetes mellitus with unspecified complications Family History Family History Father Emphysema, unspecified Mother Cardiovascular disease Family history of problems with anesthesia: No Surgical History Surgical History History of cardiac catheterization (~11/17/18) History of lung biopsy (~02/14/21) History of maze procedure Status post aortic valve replacement with bioprosthetic valve (~01/2019) Status post coronary artery bypass graft (~01/2019) Status post foot surgery History of Problems with Anesthesia: No Social History Social History Household Members: Spouse Housing: House Do you presently have visiting nurse or other home services: No Alcohol intake: never Patient Tobacco Use Status: Former Tobacco user Tobacco use type: Pipe Advance Directives Date on File: 06/27/20 service: No Current occupational status: retired Meds Allergies Allergy/AdvReac Type Severity Reaction Status Date / Time Heparin Analogues Allergy Severe HIT Verified 02/12/22 10:39 [HEPARIN ANALOGUES] acetaminophen [From TYLENOL] Allergy Unknown UNKNOWN Verified 02/12/22 10:39 insulin glargine Allergy Unknown Toujeo- Verified 02/12/22 10:39 diarrhea Sulfa (Sulfonamide Allergy Unknown HIVES Verified 02/12/22 10:39 Antibiotics) [SULFA (SULFONAMIDE ANTIBIOTICS)] Active Medications: Current Medications Apixaban (Apixaban 5 Mg Tablet) 5 mg PO BID [facility] Last Admin: 02/12/22 09:07 Dose: 5 mg Documented by: Atorvastatin Calcium (Atorvastatin Calcium 80 Mg Tablet) 80 mg PO BEDTIME [facility] Last Admin: 02/11/22 21:45 Dose: 80 mg Documented by: Dextrose (Dextrose 50 % 25 Gm/50 Ml Syringe) 25 gm IVPUSH Q15M PRN; Protocol PRN Reason: per Hypoglycemia Standing Ord. Docusate Sodium (Docusate Sodium 100 Mg Capsule) 100 mg PO BID [facility] Last Admin: 02/12/22 09:08 Dose: Not Given Documented by: Ezetimibe (Ezetimibe 10 Mg Tablet) 10 mg PO BEDTIME [facility] Last Admin: 02/11/22 21:44 Dose: 10 mg Documented by: Furosemide (Furosemide 40 Mg Tablet) 40 mg PO DAILY [facility]; Protocol Last Admin: 02/12/22 09:08 Dose: Not Given Documented by: Glucose (Glucose Gel 15 Gm Gel..Gram.) 15 gm PO Q15M PRN; Protocol PRN Reason: per Hypoglycemia Standing Ord. Piperacillin Sod/Tazobactam (Sod 3.375 gm/ Sodium Chloride) 50 mls @ 100 mls/hr IV Q6H [facility] Last Infusion: 02/12/22 06:03 Dose: Infused Documented by: Ceftriaxone Sodium 2 gm/ (Sodium Chloride) 50 mls @ 100 mls/hr IV Q24H [facility] Last Infusion: 02/11/22 17:18 Dose: Infused Documented by: Insulin Glargine (Insulin Glargine,Hum.Rec.Anlog 100 Unit/Ml 10 Ml Vial) 22 unit SUBCUT DAILY [facility] Last Admin: 02/12/22 09:08 Dose: Not Given Documented by: Insulin Human Lispro (Insulin Lispro 100 Unit/Ml 3 Ml Vial) 0 unit SUBCUT QIDACHS [facility]; Protocol Last Admin: 02/12/22 07:38 Dose: Not Given Documented by: Levothyroxine Sodium (Levothyroxine Sodium 50 Mcg Tablet) 50 mcg PO Q2D@0630 [facility] Last Admin: 02/12/22 05:29 Dose: Not Given Documented by: Magnesium Oxide (Magnesium Oxide 400 Mg Tablet) 400 mg PO TID [facility] Last Admin: 02/12/22 09:08 Dose: Not Given Documented by: Metoprolol Succinate (Metoprolol Succinate Er 25 Mg Tab.Er.24h) 25 mg PO DAILY [facility]; Protocol Last Admin: 02/12/22 09:07 Dose: 25 mg Documented by: Nystatin (Nystatin Powder 15 Gm Bottle) 1 appl TOPICAL BID [facility]; Protocol Last Admin: 02/12/22 09:08 Dose: Not Given Documented by: Omeprazole (Omeprazole 20 Mg Capsule.Dr) 20 mg PO BID@0630,1630 [facility] Last Admin: 02/12/22 05:29 Dose: Not Given Documented by: Pharmacy Consult (Consult Rx Perform Med Rec) 1 each MISCELLANE ONCE PRN PRN Reason: Consult order Sodium Chloride (0.9 % Sodium Chloride Flush 3 Ml Syringe) 3 ml IVFLUSH QSHIFT [facility] Last Admin: 02/12/22 09:08 Dose: 3 ml Documented by: Tamsulosin HCl (Tamsulosin Hcl 0.4 Mg Capsule) 0.4 mg PO DAILY@1700 [facility] Last Admin: 02/11/22 16:31 Dose: 0.4 mg Documented by: Home Medications Medication Instructions Recorded Confirmed Last Taken Type atorvastatin 80 mg tablet 80 mg PO BEDTIME 07/18/20 02/07/22 02/06/22 History insulin glargine 100 unit/mL (3 22 unit SUBCUT DAILY 07/18/20 02/07/22 02/06/22 History mL) subcutaneous pen levothyroxine 50 mcg tablet 50 mcg PO Q2D@0630 07/18/20 02/07/22 02/06/22 History magnesium oxide 400 mg (241.3 mg 400 mg PO TID 07/18/20 02/07/22 02/06/22 History magnesium) tablet insulin lispro 100 unit/mL See Protocol SUBCUT QIDACHS 07/26/20 02/07/22 02/06/22 History subcutaneous pen (Humalog KwikPen (U-100) Insulin) tamsulosin 0.4 mg capsule (Flomax) 0.4 mg PO DAILY@1700 1102/07/22 02/06/22 History omeprazole 20 mg capsule,delayed 20 mg PO BID@0630,1630 01/09/21 02/07/22 02/06/22 History release blood sugar diagnostic #10 ea 02/01/21 12/10/21 02/06/22 History blood-glucose meter #1 ea 02/01/21 12/10/21 02/06/22 History pen needle, diabetic 32 gauge x #50 ea 02/01/21 12/10/21 02/06/22 History docusate sodium 100 mg capsule 100 mg PO BID 02/07/22 02/07/22 02/06/22 History (Stool Softener) metoprolol succinate 25 mg 25 mg PO BEDTIME 02/07/22 02/07/22 02/06/22 History tablet,extended release 24 hr (Toprol XL) Exam Exam Date and Time: February 12, 2022 1022 Height,Weight and Vital Signs: Height 5 ft 11 in Weight 93 kg Last Vital Signs Temp 97.5 F 02/12/22 07:18 Pulse 66 02/12/22 07:18 Resp 18 02/12/22 07:18 BP 140/65 H 02/12/22 07:18 Pulse Ox 95 02/12/22 07:18 Pertinent Lab Results Pertinent Lab Results: Laboratory Tests 02/07/22 02/07/22 02/07/22 04:20 04:20 04:20 WBC 14.4 H RBC 3.98 L Hgb 11.4 L Hct 34.6 L MCV 86.9 MCH 28.6 MCHC 32.9 RDW 16.6 H Plt Count 132 L MPV 10.6 Immature Gran % (Auto) 0.7 H Neut % (Auto) 92.4 H Lymph % (Auto) 2.0 L [place] % (Auto) 4.3 Eos % (Auto) 0.3 Baso % (Auto) 0.3 Lymph # (Auto) 0.3 L [place] # (Auto) 0.6 Eos # (Auto) 0.1 Baso # (Auto) 0.0 Abs Immat Gran (auto) 0.10 H Absolute Neuts (auto) 13.3 H Absolute Nucleated RBC 0.000 Nucleated RBC % (auto) 0.0 Smear Tech's Comments VERIFIED Sodium 134 L Potassium 4.1 Chloride 104 Carbon Dioxide 19 L Anion Gap 15 BUN 31 H Creatinine 1.55 H Estim Creat Clear Calc 49.4 Estimated GFR 44 POC Glucose Random Glucose 211 H Lactic Acid Calcium 8.4 D Total Bilirubin 1.1 H Direct Bilirubin 0.4 AST 40 H D ALT 31 Alkaline Phosphatase 167 H Troponin I High Sens 38.7 H D B-Natriuretic Peptide 418 H Total Protein 8.1 H Albumin 3.2 L Lipase 22 Urine Color Urine Appearance Urine pH Ur Specific [place] Urine Protein Urine Glucose (UA) Urine Ketones Urine Blood Urine Nitrite Ur Leukocyte Esterase Urine RBC Urine WBC Ur Squamous Epith Cells Amorphous Sediment Urine Bacteria Granular Casts Urine Mucus Vancomycin Trough Random Vancomycin COVID-19 (DENG) COVID-19 Clin Com Influenza Type A (PCR) Influenza Type B (PCR) RSV RNA Qual (PCR) SARS-CoV-2 RNA (RT-PCR) 02/07/22 02/07/22 02/07/22 04:20 04:20 04:25 WBC RBC Hgb Hct MCV MCH MCHC RDW Plt Count MPV Immature Gran % (Auto) Neut % (Auto) Lymph % (Auto) [place] % (Auto) Eos % (Auto) Baso % (Auto) Lymph # (Auto) [place] # (Auto) Eos # (Auto) Baso # (Auto) Abs Immat Gran (auto) Absolute Neuts (auto) Absolute Nucleated RBC Nucleated RBC % (auto) Smear Tech's Comments Sodium Potassium Chloride Carbon Dioxide Anion Gap BUN Creatinine Estim Creat Clear Calc Estimated GFR POC Glucose Random Glucose Lactic Acid 1.6 Calcium Total Bilirubin Direct Bilirubin AST ALT Alkaline Phosphatase Troponin I High Sens B-Natriuretic Peptide Cancelled Total Protein Albumin Lipase Urine Color Urine Appearance Urine pH Ur Specific [place] Urine Protein Urine Glucose (UA) Urine Ketones Urine Blood Urine Nitrite Ur Leukocyte Esterase Urine RBC Urine WBC Ur Squamous Epith Cells Amorphous Sediment Urine Bacteria Granular Casts Urine Mucus Vancomycin Trough Random Vancomycin COVID-19 (DENG) Negative COVID-19 Clin Com See Note Influenza Type A (PCR) Influenza Type B (PCR) RSV RNA Qual (PCR) SARS-CoV-2 RNA (RT-PCR) 02/07/22 02/07/22 02/07/22 04:25 05:12 10:53 WBC RBC Hgb Hct MCV MCH MCHC RDW Plt Count MPV Immature Gran % (Auto) Neut % (Auto) Lymph % (Auto) [place] % (Auto) Eos % (Auto) Baso % (Auto) Lymph # (Auto) [place] # (Auto) Eos # (Auto) Baso # (Auto) Abs Immat Gran (auto) Absolute Neuts (auto) Absolute Nucleated RBC Nucleated RBC % (auto) Smear Tech's Comments Sodium Potassium Chloride Carbon Dioxide Anion Gap BUN Creatinine Estim Creat Clear Calc Estimated GFR POC Glucose 228 H Random Glucose Lactic Acid Calcium Total Bilirubin Direct Bilirubin AST ALT Alkaline Phosphatase Troponin I High Sens B-Natriuretic Peptide Total Protein Albumin Lipase Urine Color YELLOW Urine Appearance CLEAR Urine pH 6.0 Ur Specific [place] 1.020 Urine Protein 2+ H Urine Glucose (UA) NEG Urine Ketones 5 Urine Blood 1+ H Urine Nitrite NEG Ur Leukocyte Esterase NEG Urine RBC 0-2 Urine WBC 0-2 Ur Squamous Epith Cells NONE Amorphous Sediment 1+ Urine Bacteria NONE Granular Casts 0-2 Urine Mucus 1+ Vancomycin Trough Random Vancomycin COVID-19 (DENG) COVID-19 Clin Com Influenza Type A (PCR) NEGATIVE Influenza Type B (PCR) NEGATIVE RSV RNA Qual (PCR) NEGATIVE SARS-CoV-2 RNA (RT-PCR) NEGATIVE 02/07/22 02/07/22 02/08/22 13:44 21:07 06:09 WBC RBC Hgb Hct MCV MCH MCHC RDW Plt Count MPV Immature Gran % (Auto) Neut % (Auto) Lymph % (Auto) [place] % (Auto) Eos % (Auto) Baso % (Auto) Lymph # (Auto) [place] # (Auto) Eos # (Auto) Baso # (Auto) Abs Immat Gran (auto) Absolute Neuts (auto) Absolute Nucleated RBC Nucleated RBC % (auto) Smear Tech's Comments Sodium Potassium Chloride Carbon Dioxide Anion Gap BUN Creatinine 1.53 H Estim Creat Clear Calc 50.1 Estimated GFR 45 POC Glucose 224 H 212 H Random Glucose Lactic Acid Calcium Total Bilirubin Direct Bilirubin AST ALT Alkaline Phosphatase Troponin I High Sens B-Natriuretic Peptide Total Protein Albumin Lipase Urine Color Urine Appearance Urine pH Ur Specific [place] Urine Protein Urine Glucose (UA) Urine Ketones Urine Blood Urine Nitrite Ur Leukocyte Esterase Urine RBC Urine WBC Ur Squamous Epith Cells Amorphous Sediment Urine Bacteria Granular Casts Urine Mucus Vancomycin Trough Random Vancomycin COVID-19 (DENG) COVID-19 Clin Com Influenza Type A (PCR) Influenza Type B (PCR) RSV RNA Qual (PCR) SARS-CoV-2 RNA (RT-PCR) 02/08/22 02/08/22 02/08/22 07:40 10:57 15:36 WBC RBC Hgb Hct MCV MCH MCHC RDW Plt Count MPV Immature Gran % (Auto) Neut % (Auto) Lymph % (Auto) [place] % (Auto) Eos % (Auto) Baso % (Auto) Lymph # (Auto) [place] # (Auto) Eos # (Auto) Baso # (Auto) Abs Immat Gran (auto) Absolute Neuts (auto) Absolute Nucleated RBC Nucleated RBC % (auto) Smear Tech's Comments Sodium Potassium Chloride Carbon Dioxide Anion Gap BUN Creatinine Estim Creat Clear Calc Estimated GFR POC Glucose 176 H 214 H 241 H Random Glucose Lactic Acid Calcium Total Bilirubin Direct Bilirubin AST ALT Alkaline Phosphatase Troponin I High Sens B-Natriuretic Peptide Total Protein Albumin Lipase Urine Color Urine Appearance Urine pH Ur Specific [place] Urine Protein Urine Glucose (UA) Urine Ketones Urine Blood Urine Nitrite Ur Leukocyte Esterase Urine RBC Urine WBC Ur Squamous Epith Cells Amorphous Sediment Urine Bacteria Granular Casts Urine Mucus Vancomycin Trough Random Vancomycin COVID-19 (DENG) COVID-19 Clin Com Influenza Type A (PCR) Influenza Type B (PCR) RSV RNA Qual (PCR) SARS-CoV-2 RNA (RT-PCR) 02/08/22 02/08/22 02/08/22 16:37 19:53 21:34 WBC RBC Hgb Hct MCV MCH MCHC RDW Plt Count MPV Immature Gran % (Auto) Neut % (Auto) Lymph % (Auto) [place] % (Auto) Eos % (Auto) Baso % (Auto) Lymph # (Auto) [place] # (Auto) Eos # (Auto) Baso # (Auto) Abs Immat Gran (auto) Absolute Neuts (auto) Absolute Nucleated RBC Nucleated RBC % (auto) Smear Tech's Comments Sodium Potassium Chloride Carbon Dioxide Anion Gap BUN Creatinine Estim Creat Clear Calc Estimated GFR POC Glucose 231 H 192 H 207 H Random Glucose Lactic Acid Calcium Total Bilirubin Direct Bilirubin AST ALT Alkaline Phosphatase Troponin I High Sens B-Natriuretic Peptide Total Protein Albumin Lipase Urine Color Urine Appearance Urine pH Ur Specific [place] Urine Protein Urine Glucose (UA) Urine Ketones Urine Blood Urine Nitrite Ur Leukocyte Esterase Urine RBC Urine WBC Ur Squamous Epith Cells Amorphous Sediment Urine Bacteria Granular Casts Urine Mucus Vancomycin Trough Random Vancomycin COVID-19 (DENG) COVID-19 Clin Com Influenza Type A (PCR) Influenza Type B (PCR) RSV RNA Qual (PCR) SARS-CoV-2 RNA (RT-PCR) 02/09/22 02/09/22 02/09/22 06:06 06:06 06:06 WBC 6.3 RBC 3.39 L Hgb 9.7 L Hct 29.9 L MCV 88.2 MCH 28.6 MCHC 32.4 RDW 16.5 H Plt Count 116 L MPV 10.9 Immature Gran % (Auto) Neut % (Auto) Lymph % (Auto) [place] % (Auto) Eos % (Auto) Baso % (Auto) Lymph # (Auto) [place] # (Auto) Eos # (Auto) Baso # (Auto) Abs Immat Gran (auto) Absolute Neuts (auto) Absolute Nucleated RBC 0.000 Nucleated RBC % (auto) 0.0 Smear Tech's Comments Sodium Potassium Chloride Carbon Dioxide Anion Gap BUN Creatinine 1.30 Estim Creat Clear Calc 58.9 Estimated GFR 54 POC Glucose Random Glucose Lactic Acid Calcium Total Bilirubin Direct Bilirubin AST ALT Alkaline Phosphatase Troponin I High Sens B-Natriuretic Peptide Total Protein Albumin Lipase Urine Color Urine Appearance Urine pH Ur Specific [place] Urine Protein Urine Glucose (UA) Urine Ketones Urine Blood Urine Nitrite Ur Leukocyte Esterase Urine RBC Urine WBC Ur Squamous Epith Cells Amorphous Sediment Urine Bacteria Granular Casts Urine Mucus Vancomycin Trough 16.5 Random Vancomycin COVID-19 (DENG) COVID-19 Clin Com Influenza Type A (PCR) Influenza Type B (PCR) RSV RNA Qual (PCR) SARS-CoV-2 RNA (RT-PCR) 02/09/22 02/09/22 02/09/22 06:06 07:08 11:37 WBC RBC Hgb Hct MCV MCH MCHC RDW Plt Count MPV Immature Gran % (Auto) Neut % (Auto) Lymph % (Auto) [place] % (Auto) Eos % (Auto) Baso % (Auto) Lymph # (Auto) [place] # (Auto) Eos # (Auto) Baso # (Auto) Abs Immat Gran (auto) Absolute Neuts (auto) Absolute Nucleated RBC Nucleated RBC % (auto) Smear Tech's Comments Sodium 134 L Potassium 3.5 Chloride 103 Carbon Dioxide 23 Anion Gap 12 BUN 27 H Creatinine 1.33 Estim Creat Clear Calc 57.6 Estimated GFR 53 POC Glucose 135 H 211 H Random Glucose 153 H Lactic Acid Calcium 7.8 L D Total Bilirubin Direct Bilirubin AST ALT Alkaline Phosphatase Troponin I High Sens B-Natriuretic Peptide Total Protein Albumin Lipase Urine Color Urine Appearance Urine pH Ur Specific [place] Urine Protein Urine Glucose (UA) Urine Ketones Urine Blood Urine Nitrite Ur Leukocyte Esterase Urine RBC Urine WBC Ur Squamous Epith Cells Amorphous Sediment Urine Bacteria Granular Casts Urine Mucus Vancomycin Trough Random Vancomycin COVID-19 (DENG) COVID-19 Clin Com Influenza Type A (PCR) Influenza Type B (PCR) RSV RNA Qual (PCR) SARS-CoV-2 RNA (RT-PCR) 02/09/22 02/09/22 02/10/22 15:48 18:59 07:17 WBC RBC Hgb Hct MCV MCH MCHC RDW Plt Count MPV Immature Gran % (Auto) Neut % (Auto) Lymph % (Auto) [place] % (Auto) Eos % (Auto) Baso % (Auto) Lymph # (Auto) [place] # (Auto) Eos # (Auto) Baso # (Auto) Abs Immat Gran (auto) Absolute Neuts (auto) Absolute Nucleated RBC Nucleated RBC % (auto) Smear Tech's Comments Sodium Potassium Chloride Carbon Dioxide Anion Gap BUN Creatinine Estim Creat Clear Calc Estimated GFR POC Glucose 209 H 156 H 200 H Random Glucose Lactic Acid Calcium Total Bilirubin Direct Bilirubin AST ALT Alkaline Phosphatase Troponin I High Sens B-Natriuretic Peptide Total Protein Albumin Lipase Urine Color Urine Appearance Urine pH Ur Specific [place] Urine Protein Urine Glucose (UA) Urine Ketones Urine Blood Urine Nitrite Ur Leukocyte Esterase Urine RBC Urine WBC Ur Squamous Epith Cells Amorphous Sediment Urine Bacteria Granular Casts Urine Mucus Vancomycin Trough Random Vancomycin COVID-19 (DENG) COVID-19 Clin Com Influenza Type A (PCR) Influenza Type B (PCR) RSV RNA Qual (PCR) SARS-CoV-2 RNA (RT-PCR) 02/10/22 02/10/22 02/10/22 08:28 08:28 08:28 WBC 7.7 RBC 3.74 L Hgb 10.6 L Hct 32.8 L MCV 87.7 MCH 28.3 MCHC 32.3 RDW 16.5 H Plt Count 135 L MPV 11.8 Immature Gran % (Auto) Neut % (Auto) Lymph % (Auto) [place] % (Auto) Eos % (Auto) Baso % (Auto) Lymph # (Auto) [place] # (Auto) Eos # (Auto) Baso # (Auto) Abs Immat Gran (auto) Absolute Neuts (auto) Absolute Nucleated RBC 0.000 Nucleated RBC % (auto) 0.0 Smear Tech's Comments Sodium Potassium Chloride Carbon Dioxide Anion Gap BUN Creatinine 1.23 Estim Creat Clear Calc 62.3 Estimated GFR 58 POC Glucose Random Glucose Lactic Acid Calcium Total Bilirubin Direct Bilirubin AST ALT Alkaline Phosphatase Troponin I High Sens B-Natriuretic Peptide Total Protein Albumin Lipase Urine Color Urine Appearance Urine pH Ur Specific [place] Urine Protein Urine Glucose (UA) Urine Ketones Urine Blood Urine Nitrite Ur Leukocyte Esterase Urine RBC Urine WBC Ur Squamous Epith Cells Amorphous Sediment Urine Bacteria Granular Casts Urine Mucus Vancomycin Trough Random Vancomycin 13.9 L COVID-19 (DENG) COVID-19 Clin Com Influenza Type A (PCR) Influenza Type B (PCR) RSV RNA Qual (PCR) SARS-CoV-2 RNA (RT-PCR) 02/10/22 02/10/22 02/10/22 08:28 11:09 16:25 WBC RBC Hgb Hct MCV MCH MCHC RDW Plt Count MPV Immature Gran % (Auto) Neut % (Auto) Lymph % (Auto) [place] % (Auto) Eos % (Auto) Baso % (Auto) Lymph # (Auto) [place] # (Auto) Eos # (Auto) Baso # (Auto) Abs Immat Gran (auto) Absolute Neuts (auto) Absolute Nucleated RBC Nucleated RBC % (auto) Smear Tech's Comments Sodium 136 Potassium 3.7 Chloride 102 Carbon Dioxide 26 Anion Gap 12 BUN 25 H Creatinine 1.24 Estim Creat Clear Calc 61.8 Estimated GFR 57 POC Glucose 240 H 240 H Random Glucose 213 H D Lactic Acid Calcium 8.0 L Total Bilirubin Direct Bilirubin AST ALT Alkaline Phosphatase Troponin I High Sens B-Natriuretic Peptide Total Protein Albumin Lipase Urine Color Urine Appearance Urine pH Ur Specific [place] Urine Protein Urine Glucose (UA) Urine Ketones Urine Blood Urine Nitrite Ur Leukocyte Esterase Urine RBC Urine WBC Ur Squamous Epith Cells Amorphous Sediment Urine Bacteria Granular Casts Urine Mucus Vancomycin Trough Random Vancomycin COVID-19 (DENG) COVID-19 Clin Com Influenza Type A (PCR) Influenza Type B (PCR) RSV RNA Qual (PCR) SARS-CoV-2 RNA (RT-PCR) 02/10/22 02/11/22 02/11/22 20:11 06:09 06:09 WBC 7.1 RBC 3.62 L Hgb 10.2 L Hct 31.7 L MCV 87.6 MCH 28.2 MCHC 32.2 RDW 16.5 H Plt Count 126 L MPV 10.3 Immature Gran % (Auto) Neut % (Auto) Lymph % (Auto) [place] % (Auto) Eos % (Auto) Baso % (Auto) Lymph # (Auto) [place] # (Auto) Eos # (Auto) Baso # (Auto) Abs Immat Gran (auto) Absolute Neuts (auto) Absolute Nucleated RBC 0.000 Nucleated RBC % (auto) 0.0 Smear Tech's Comments Sodium 138 Potassium 3.6 Chloride 104 Carbon Dioxide 25 Anion Gap 13 BUN 20 H Creatinine 1.15 Estim Creat Clear Calc 66.6 Estimated GFR > 60 POC Glucose 216 H Random Glucose 178 H Lactic Acid Calcium 8.0 L Total Bilirubin Direct Bilirubin AST ALT Alkaline Phosphatase Troponin I High Sens B-Natriuretic Peptide Total Protein Albumin Lipase Urine Color Urine Appearance Urine pH Ur Specific [place] Urine Protein Urine Glucose (UA) Urine Ketones Urine Blood Urine Nitrite Ur Leukocyte Esterase Urine RBC Urine WBC Ur Squamous Epith Cells Amorphous Sediment Urine Bacteria Granular Casts Urine Mucus Vancomycin Trough Random Vancomycin COVID-19 (DENG) COVID-19 Clin Com Influenza Type A (PCR) Influenza Type B (PCR) RSV RNA Qual (PCR) SARS-CoV-2 RNA (RT-PCR) 02/11/22 02/11/22 02/11/22 07:15 11:33 15:56 WBC RBC Hgb Hct MCV MCH MCHC RDW Plt Count MPV Immature Gran % (Auto) Neut % (Auto) Lymph % (Auto) [place] % (Auto) Eos % (Auto) Baso % (Auto) Lymph # (Auto) [place] # (Auto) Eos # (Auto) Baso # (Auto) Abs Immat Gran (auto) Absolute Neuts (auto) Absolute Nucleated RBC Nucleated RBC % (auto) Smear Tech's Comments Sodium Potassium Chloride Carbon Dioxide Anion Gap BUN Creatinine Estim Creat Clear Calc Estimated GFR POC Glucose 166 H 235 H 253 H Random Glucose Lactic Acid Calcium Total Bilirubin Direct Bilirubin AST ALT Alkaline Phosphatase Troponin I High Sens B-Natriuretic Peptide Total Protein Albumin Lipase Urine Color Urine Appearance Urine pH Ur Specific [place] Urine Protein Urine Glucose (UA) Urine Ketones Urine Blood Urine Nitrite Ur Leukocyte Esterase Urine RBC Urine WBC Ur Squamous Epith Cells Amorphous Sediment Urine Bacteria Granular Casts Urine Mucus Vancomycin Trough Random Vancomycin COVID-19 (DENG) COVID-19 Clin Com Influenza Type A (PCR) Influenza Type B (PCR) RSV RNA Qual (PCR) SARS-CoV-2 RNA (RT-PCR) 02/11/22 02/12/22 02/12/22 20:04 06:44 07:11 WBC RBC Hgb Hct MCV MCH MCHC RDW Plt Count MPV Immature Gran % (Auto) Neut % (Auto) Lymph % (Auto) [place] % (Auto) Eos % (Auto) Baso % (Auto) Lymph # (Auto) [place] # (Auto) Eos # (Auto) Baso # (Auto) Abs Immat Gran (auto) Absolute Neuts (auto) Absolute Nucleated RBC Nucleated RBC % (auto) Smear Tech's Comments Sodium Potassium Chloride Carbon Dioxide Anion Gap BUN Creatinine 1.30 Estim Creat Clear Calc 58.9 Estimated GFR 54 POC Glucose 232 H 143 H Random Glucose Lactic Acid Calcium Total Bilirubin Direct Bilirubin AST ALT Alkaline Phosphatase Troponin I High Sens B-Natriuretic Peptide Total Protein Albumin Lipase Urine Color Urine Appearance Urine pH Ur Specific [place] Urine Protein Urine Glucose (UA) Urine Ketones Urine Blood Urine Nitrite Ur Leukocyte Esterase Urine RBC Urine WBC Ur Squamous Epith Cells Amorphous Sediment Urine Bacteria Granular Casts Urine Mucus Vancomycin Trough Random Vancomycin COVID-19 (DENG) COVID-19 Clin Com Influenza Type A (PCR) Influenza Type B (PCR) RSV RNA Qual (PCR) SARS-CoV-2 RNA (RT-PCR) Airway Mallampati Class: II TM Dist: >3cm Neck ROM: Full Loose/Missing/Broken Teeth: No Heart: irreg irreg [id number] Lungs: cta b/l Assessment and Plan Assessment Anesthesia Assessment: Anesthesia Plan Discussed and Chart Reviewed Final Anesthetic Review Family History of Problems with Anesthesia: No History of Problems with Anesthesia: No NPO: Yes ASA Class: III Final Preanesthetic Review: No Changes in Pt Med Stat, Meds/Allgs Chart Reviewed, Consent Obtained/Reviewed and Anes Risks/Benef Reviewed Patient Risk: Intermediate Procedure Risk: Intermediate Assessment/Block/Sedation in SS: Assess/Block/Sedation-SS Anesthetic Plan Anesthetic Plan: MAC: and Agree w/ Assess. and Plan Disposition: Standard PACU
--- NOTE | 2022-02-12 11:00 | CA_ITS ---
Transesophageal Echocardiogram Patient (Last, First, Middle): Dom Sood, Gender: Male Date of : 1950 Age: 71 Procedure Date: 02/12/2022 Procedure Type: Transesophageal Echocardiogram Location: [facility] [place] Height: 172.72 cm Weight: kg Allergist/Immunologist: MERNA Referring MD: Elvin Mancilla MD Busgirl: Elvin Mancilla MD Symptoms: fever, endocarditis Conclusion: ??? DEREK performed to rule out endocarditis. ??? No definitive evidence of vegetation noted on aortic valve, mitral valve and tricuspid valve. Pulmonic valve is visualized in some views and appears to be normal too. Findings Procedure Information Consent was obtained prior to the procedure. The probe was passed with no difficulty. This was a technically good study. Left Ventricle Normal left ventricular size and systolic function. Right Ventricle The right ventricle was not well visualized. Atria Left atrium appears dilated. Aortic Valve A bioprosthetic aortic valve is present. The prosthetic aortic valve appears to be functioning normally. No vegetation noted on the aortic valve. No evidence of root abscess. Small Lambl noted on the aortic valve. Mitral Valve There is severe mitral annular calcification. There is trace mitral valve regurgitation. No evidence of vegetation on the mitral valve. Pulmonic Valve The pulmonic valve is likely normal. Tricuspid Valve Normal tricuspid valve structure. There is trace tricuspid valve regurgitation. Great Vessels Small plaque is seen in the descending thoracic aorta. Pericardium/Pleural There is no evidence of pericardial effusion. Updated by Elvin Mancilla on 12:46 PM with Status of Final Elvin Mancilla MD electronically signed on 02/16/2022 12:46:46 PM with status of Final
--- NOTE | 2022-02-12 11:49 | PM.PNCARD ---
Subjective Subjective Date of Service: 02/12/22 Principal diagnosis: bacteremia, hx Bio AVR Interval history: Seen and examined at bedside. No fever. saying he is hungry. NPO for DEREK today. Physical Exam Vital Signs: Last Vital Signs Temp 97.6 F 02/12/22 10:40 Pulse 47 L 02/12/22 10:40 Resp 16 02/12/22 10:40 BP 150/53 H 02/12/22 10:40 Pulse Ox 96 02/12/22 10:40 BMI result Body Mass Index 28.5 GENERAL APPEARANCE: in no acute distress, pleasant. SKIN:? Left foot is dressed. HEART:? Systolic murmur aortic area. irregular rate and rhythm. LUNGS: clear to auscultation bilaterally. ABDOMEN: soft, nontender. EXTREMITIES:? Mild edema. PERIPHERAL PULSES: equal. NEUROLOGIC: No gross deficits, AAO X 3 Objective Labs and Meds Result diagrams: 02/11/22 06:09 02/12/22 06:44 Lab results: Laboratory Results - last 24 hr 02/11/22 02/11/22 02/11/22 11:33 15:56 20:04 Creatinine Estim Creat Clear Calc Estimated GFR POC Glucose 235 H 253 H 232 H 02/12/22 02/12/22 06:44 07:11 Creatinine 1.30 Estim Creat Clear Calc 58.9 Estimated GFR 54 POC Glucose 143 H Progress Note: A&P Assessment and plan (1) Group C streptococcal infection: Status: Acute (2) Status post aortic valve replacement with bioprosthetic valve: Status: Acute Plan 71 male with previous endocarditis and recurrent group C streptococcal bacteremia. For DEREK today to rule out endocarditis. Foot infection can be a source as this is a skin bacteria but due to recurrent bacteremia we want to make sure that we are not missing anything. Time Spent With Patient Time: Total time spent is greater than 50% in coordination of care (as documented) at patient's floor/unit and/or counseling patient: Progress Note: Quality Stroke Does the patient have a stroke diagnosis?: No Procedures Date of Service Date of Service: 02/12/22
--- NOTE | 2022-02-12 15:21 | P.PICC_ITS ---
PICC Line Insertion NPICC Diagnosis: BACTEREMIA Indication: DEHYDRATOR IV ANTIBIOTICS Pertinent Labs: REVIEWED Technique: Following informed consent including risks, benefits and alternatives and using sterile technique including cap and mask, sterile gown, glove and drape, the RIGHT arm was prepped and draped in the usual sterile fashion of full barrier technique with CHG. Following completion of [place] Protocol the skin and soft tissues were anesthetized with 1% Lidocaine plain. Using ultrasound guidance, BASILIC vein access was obtained ON SECOND ATTEMPT BY THIS RN. Over an 0.018 wire through peel-away sheath, a SINGLE LUMEN, PASV, 4-AFGHAN PICC line was positioned. Catheter length is 48 internal length, 0 CM external length, for a total trimmed length of 48 CM. The procedure was performed in S-272. Tip verification was performed by Moses Smith with Cameron 3CG. Tip located in SVC. Ultrasound was used to document vein patency and for needle entry. A formal ultrasound picture and cardiac rhythm strip was recorded. [employer] [employer] has released the line for use and it is currently dressed with a StatLock, Tegaderm, and CHG disc. Verification has been performed for blood return and line patency. Arm Circumference: 29 CM Equipment: [employer] POWERPICC SOLO Catheter Type: 4-AFGHAN, SINGLE LUMEN, PASV Lot #: [id number]
[2022-02-12] MEDS: cefTRIAXone sodium 2 GM in 0.9 % Sodium Chloride 50 ML IV (17:05)
[2022-02-12] MEDS: Tamsulosin HCL 0.4 MG CAPSULE PO (17:05)
[2022-02-12] MEDS: Omeprazole 20 MG CAPSULE.DR PO (17:05)
[2022-02-12] MEDS: Magnesium Oxide 400 MG TABLET PO ×2 (17:05→21:27)
[2022-02-12] MEDS: 0.9 % Sodium Chloride Flush 10 ML SYRINGE 5 ML IVFLUSH ×2 (17:06→21:34)
[2022-02-12] MEDS: Insulin Lispro 100 UNIT/ML 3 ML VIAL SUBCUT ×2 (17:07→21:28)
[2022-02-12] MEDS: Atorvastatin Calcium 80 MG TABLET PO (21:27)
[2022-02-12] MEDS: Docusate Sodium 100 MG CAPSULE PO (21:27)
[2022-02-12] MEDS: Ezetimibe 10 MG TABLET PO (21:27)
[2022-02-12] MEDS: Nystatin Powder 15 GM BOTTLE 1 APPL TOPICAL (21:31)
[2022-02-13 03:15] VITALS: BP 125/54; PULSE 68; RESP 20; TEMP 37.1; O2SAT 96
[2022-02-13] MEDS: Omeprazole 20 MG CAPSULE.DR PO ×2 (05:32→16:54)
[2022-02-13] MEDS: Piperacillin Sodium/Tazobactam 3.375 GM in 0.9 % Sodium Chloride 50 ML IV ×2 (05:32→10:47)
[2022-02-13 06:58] VITALS: BP 123/59; PULSE 58; RESP 18; TEMP 36.3; O2SAT 94
[2022-02-13 07:44] LABS: Creatinine Clr Calc Pharmacy 64.4; Estimated Glomerular Filt Rate 60
[2022-02-13] MEDS: Insulin Lispro 100 UNIT/ML 3 ML VIAL SUBCUT ×4 (08:40→22:16)
[2022-02-13] MEDS: Insulin Glargine,Hum.rec.anlog 100 UNIT/ML 10 ML VIAL 22 UNIT SUBCUT (08:40)
[2022-02-13] MEDS: Magnesium Oxide 400 MG TABLET PO ×3 (08:41→22:15)
[2022-02-13] MEDS: 0.9 % Sodium Chloride Flush 10 ML SYRINGE 5 ML IVFLUSH ×3 (08:41→22:16)
[2022-02-13] MEDS: Metoprolol Succinate ER 25 MG TAB.ER.24H PO (08:41)
[2022-02-13] MEDS: Furosemide 40 MG TABLET PO (08:41)
[2022-02-13] MEDS: 0.9 % Sodium Chloride Flush 3 ML SYRINGE IVFLUSH ×2 (08:41→16:53)
[2022-02-13] MEDS: Docusate Sodium 100 MG CAPSULE PO ×2 (08:41→22:15)
[2022-02-13] MEDS: Nystatin Powder 15 GM BOTTLE 1 APPL TOPICAL (08:42)
[2022-02-13] MEDS: Apixaban 5 MG TABLET PO ×2 (08:42→22:15)
[2022-02-13 11:08] VITALS: BP 137/59; PULSE 58; RESP 18; TEMP 36.2; O2SAT 96
--- NOTE | 2022-02-13 11:42 | PC.NURSE ---
PT's POC 247 was taken by ALYSHA Taylor at 11:09. POC not registering with [employer] system.This nurse will give 4 Units of insulin lispro per sliding scale.
[2022-02-13 12:14] LABS: Glucose, Whole Blood 171 mg/dL (60-115)
[2022-02-13 12:15] LABS: Glucose, Whole Blood 207 mg/dL (60-115)
[2022-02-13 12:18] LABS: Glucose, Whole Blood 237 mg/dL (60-115)
[2022-02-13 12:18] LABS: Glucose, Whole Blood 211 mg/dL (60-115)
[2022-02-13 12:21] LABS: Glucose, Whole Blood 178 mg/dL (60-115)
[2022-02-13 12:22] LABS: Glucose, Whole Blood 247 mg/dL (60-115)
--- NOTE | 2022-02-13 14:44 | PM.PNCARD ---
Subjective Subjective Date of Service: 02/13/22 Principal diagnosis: bacteremia, hx Bio AVR Interval history: Seen and examined at bedside. Feeling better. Good appetite. Physical Exam Vital Signs: Last Vital Signs Temp 97.1 F 02/13/22 11:08 Pulse 58 02/13/22 11:08 Resp 18 02/13/22 11:08 BP 137/59 L 02/13/22 11:08 Pulse Ox 96 02/13/22 11:08 BMI result Body Mass Index 28.5 GENERAL APPEARANCE: in no acute distress, pleasant. SKIN:? Left foot is dressed. HEART:? Systolic murmur aortic area. irregular rate and rhythm. LUNGS: clear to auscultation bilaterally. ABDOMEN: soft, nontender. EXTREMITIES:? Mild edema. PERIPHERAL PULSES: equal. NEUROLOGIC: No gross deficits, AAO X 3 Objective Labs and Meds Result diagrams: 02/11/22 06:09 02/13/22 06:32 Lab results: Laboratory Results - last 24 hr 02/12/22 02/12/22 02/12/22 10:52 15:56 17:11 Creatinine Estim Creat Clear Calc Estimated GFR POC Glucose 171 H 207 H 211 H 02/12/22 02/13/22 02/13/22 20:23 06:32 07:01 Creatinine 1.19 Estim Creat Clear Calc 64.4 Estimated GFR 60 POC Glucose 237 H 178 H 02/13/22 11:09 Creatinine Estim Creat Clear Calc Estimated GFR POC Glucose 247 H Progress Note: A&P Assessment and plan (1) Group C streptococcal infection: Status: Acute (2) Chronic right heart failure: Status: Acute Plan 71-year-old gentleman with previous bioprosthetic aortic valve replacement and prosthetic valve endocarditis. He has had recurrent group C streptococcal bacteremia. We performed DEREK which did not show any convincing evidence of endocarditis. He has focal osteomyelitis on the foot. I think this could be potential reason for recurrent bacteremia as group C Streptococcus is usually a skin bacteria. In any case we are signing off for now as there is no obvious concern for endocarditis seen on the DEREK. He has chronic right ventricular failure. Overall volume status is good. I think he should continue the home dose of diuretics. Signing off. Time Spent With Patient Time: Total time spent is greater than 50% in coordination of care (as documented) at patient's floor/unit and/or counseling patient: Progress Note: Quality Stroke Does the patient have a stroke diagnosis?: No Procedures Date of Service Date of Service: 02/13/22
[2022-02-13 15:37] VITALS: BP 143/66; PULSE 54; RESP 18; TEMP 37; O2SAT 96
--- NOTE | 2022-02-13 16:08 | HO.PM.IMPN ---
Subjective Subjective Date of Service: 02/13/22 Interval History: strep c bacteremia,ckd Review of Systems Leg erythema seems to be improved significantly, denies any chest pain or shortness of breath or abdominal pain fever or chills . Physical Exam Vital Signs: Vital Signs: Last Vital Signs Temp 98.6 F 02/13/22 15:37 Pulse 54 02/13/22 15:37 Resp 18 02/13/22 15:37 BP 143/66 H 02/13/22 15:37 Pulse Ox 96 02/13/22 15:37 BMI result Body Mass Index 28.5 Appearance: Alert.? Oriented X3. cvs: irregular rythem, [id number]. res:fair air netry,no rales or wheezing. abd: no rebound or guarding ,nt, bs present. ext pulses present , no cyanosis right leg swleling and bruise ,erythema/swelling improving left foot bottom -had ulcer (? chronic) -no discharge , no erythema dry buttock area -mild erythema , itching, does not seems pressure injury ,moniter neuro: axo3 , nonfocal. Objective Data Active Medications Acetaminophen (Acetaminophen 325 Mg Tablet) 650 mg PO ONCE PRN PRN Reason: Pain, Mild (Pain Scale 1-3) Apixaban (Apixaban 5 Mg Tablet) 5 mg PO BID [facility] Last Admin: 02/13/22 08:42 Dose: 5 mg Documented by: DONNIE Atorvastatin Calcium (Atorvastatin Calcium 80 Mg Tablet) 80 mg PO BEDTIME [facility] Last Admin: 02/12/22 21:27 Dose: 80 mg Documented by: KING Dextrose (Dextrose 50 % 25 Gm/50 Ml Syringe) 25 gm IVPUSH Q15M PRN; Protocol PRN Reason: per Hypoglycemia Standing Ord. Docusate Sodium (Docusate Sodium 100 Mg Capsule) 100 mg PO BID [facility] Last Admin: 02/13/22 08:41 Dose: 100 mg Documented by: DONNIE Ezetimibe (Ezetimibe 10 Mg Tablet) 10 mg PO BEDTIME [facility] Last Admin: 02/12/22 21:27 Dose: 10 mg Documented by: KING Furosemide (Furosemide 40 Mg Tablet) 40 mg PO DAILY [facility]; Protocol Last Admin: 02/13/22 08:41 Dose: 40 mg Documented by: DONNIE Glucose (Glucose Gel 15 Gm Gel..Gram.) 15 gm PO Q15M PRN; Protocol PRN Reason: per Hypoglycemia Standing Ord. Ceftriaxone Sodium 2 gm/ (Sodium Chloride) 50 mls @ 100 mls/hr IV Q24H [facility] Last Infusion: 02/12/22 18:16 Dose: 0 mls/hr Documented by: MARILYN Insulin Glargine (Insulin Glargine,Hum.Rec.Anlog 100 Unit/Ml 10 Ml Vial) 22 unit SUBCUT DAILY [facility] Last Admin: 02/13/22 08:40 Dose: 22 unit Documented by: DONNIE Insulin Human Lispro (Insulin Lispro 100 Unit/Ml 3 Ml Vial) 0 unit SUBCUT QIDACHS [facility]; Protocol Last Admin: 02/13/22 11:46 Dose: 4 unit Documented by: DONNIE Levothyroxine Sodium (Levothyroxine Sodium 50 Mcg Tablet) 50 mcg PO Q2D@0630 [facility] Last Admin: 02/12/22 05:29 Dose: Not Given Documented by: EDDI Non-Admin Reason: NPO Magnesium Oxide (Magnesium Oxide 400 Mg Tablet) 400 mg PO TID [facility] Last Admin: 02/13/22 08:41 Dose: 400 mg Documented by: DONNIE Metoprolol Succinate (Metoprolol Succinate Er 25 Mg Tab.Er.24h) 25 mg PO DAILY [facility]; Protocol Last Admin: 02/13/22 08:41 Dose: 25 mg Documented by: DONNIE Nystatin (Nystatin Powder 15 Gm Bottle) 1 appl TOPICAL BID [facility]; Protocol Last Admin: 02/13/22 08:42 Dose: 1 appl Documented by: DONNIE Omeprazole (Omeprazole 20 Mg Capsule.) 20 mg PO BID@0630,1630 [facility] Last Admin: 02/13/22 05:32 Dose: 20 mg Documented by: KING Ondansetron HCl (Ondansetron Hcl 4 Mg/2 Ml Vial) 4 mg IVPUSH ONCE PRN PRN Reason: Nausea and Vomiting Pharmacy Consult (Consult Rx Perform Med Rec) 1 each MISCELLANE ONCE PRN PRN Reason: Consult order Sodium Chloride (0.9 % Sodium Chloride Flush 3 Ml Syringe) 3 ml IVFLUSH QSHIFT [facility] Last Admin: 02/13/22 08:41 Dose: 3 ml Documented by: DONNIE Sodium Chloride (0.9 % Sodium Chloride Flush 10 Ml Syringe) 5 ml IVFLUSH TID [facility] Last Admin: 02/13/22 08:41 Dose: 5 ml Documented by: DONNIE Tamsulosin HCl (Tamsulosin Hcl 0.4 Mg Capsule) 0.4 mg PO DAILY@1700 [facility] Last Admin: 02/12/22 17:05 Dose: 0.4 mg Documented by: MARILYN Labs CBC & Chem 7: 02/11/22 06:09 02/13/22 06:32 Labs: Laboratory Results - last 24 hr 02/12/22 02/12/22 02/12/22 10:52 15:56 17:11 Estim Creat Clear Calc Estimated GFR POC Glucose 171 H 207 H 211 H 02/12/22 02/13/22 02/13/22 20:23 06:32 07:01 Estim Creat Clear Calc 64.4 Estimated GFR 60 POC Glucose 237 H 178 H 02/13/22 11:09 Estim Creat Clear Calc Estimated GFR POC Glucose 247 H Assessment and Plan (1) Group C streptococcal infection: Status: Acute Plan 71-year-old male with a past medical history of hypertension, hyperlipidemia, diabetes, CAD status post CABG, 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 1. possible sepsis? secondary to cellulitis/bacteremia ?tachypnea and fever resolved , leukocytosis. Blood culture - Gram-positive cocci. repeat blood cultures added. Previous blood culture were Streptococcus group C during last admission. Blood culture again come back 6 Streptococcus group C sensitive to ceftriaxone.? Repeat blood culture neg @ 48 hours Id eval -Mri foot done -noted?least focal osteomyelitis involving the proximal 4th metatarsal/Findings indicative of an infection in the forefoot. There is a superficial ulceration with sinus tract communicating with an abscess abutting the 4th metatarsal ?? ?echo: Conclusions: - Normal left ventricular size and systolic function. There is ? mildly increased left ventricular wall thickness.? The visually? estimated ejection fraction is between 55-60%. ? - There is a flattened septum in systole and diastole consistent with right ventricular pressure and volume overload. ? - Moderately increased right ventricular cavity size.? There is? moderate to severely decreased right ventricular systolic? function.? - A bioprosthetic aortic valve is present.? The prosthetic aortic valve appears to be functioning normally.? - severe mitral annular calcification with some mobile MAC noted in some views. this is likely due to mobile mitral annular ? calcification and a vegetation is less likely.? Id suggested to switch to iv ceftriaxone day4 as per above blood cultures . suregry eval-noted , continue current antibiotics ,no further surgical interventions Patient is to follow up outpatient with surgery in [facility]-doctor Benja. DEREK-grossly no vegetation preliminary Discussed with ID and about cardio. Will continue IV antibiotics for 6 weeks, PICC line order placed. 2. 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 hold metoprolol will hold that. Cardio evaluation-for recurrent bacteremia Streptococcus C, heart rate improving Cardiology follow up. 3. thombocytopenia :? Probably chronic, fluctuating platelets level.? Will continue to monitor. 4. dm:fs 135-200. fs with coverage 5. HLP:? atorvastatin. 6. Hypertension:? Blood pressure is acceptable Hold lisinopril due to HUGO. 7. HUGO: Patient received fluid in the ED, Seen by Nephrology, improved with hydration-initially received IV, encouraged for p.o. hydration,? to monitor. 8. buttock area :? Does not seem like pressure injury, ordered nystatin powder, continue to monitor, frequent turning, out of bed to chair, continue nursing care. Need for inpatient:? Streptococcus group C bacteremia recurrent, foot osteomyelitis on iv antibiotics-need picc and need infusion set up-awiting for that. Quality Stroke Does the patient have a stroke diagnosis?: No VTE Prior VTE?: No VTE Risk Level:: Medical - moderate - high VTE Device Contraindication: N/A - Device Ordered VTE Drug Contraindication: N/A - Med Ordered
[2022-02-13] MEDS: Tamsulosin HCL 0.4 MG CAPSULE PO (16:53)
[2022-02-13] MEDS: cefTRIAXone sodium 2 GM in 0.9 % Sodium Chloride 50 ML IV (16:54)
--- NOTE | 2022-02-13 18:10 | PM.PNNEP ---
Subjective Subjective Date of Service: 02/13/22 Principal diagnosis: bacteremia, hx Bio AVR Interval history: strep c bacteremia,ckd CHart Reviewed. Events noted. Physical Exam Vital Signs: Vital Signs: Last Vital Signs Temp 98.6 F 02/13/22 15:37 Pulse 54 02/13/22 15:37 Resp 18 02/13/22 15:37 BP 143/66 H 02/13/22 15:37 Pulse Ox 96 02/13/22 15:37 BMI result Body Mass Index 28.5 Const: General: comfortable and no acute distress HEENT: Head: Yes normocephalic Neck: Neck: Yes no JVD Resp: Auscultation: clear to auscultation bilaterally Cardio: Jugular venous distension: no JVD Rhythm: abnormal rhythm GI: Auscultation: normal bowel sounds Skin: General skin exam: erythema Neuro: General: moves all extremities and no focal motor deficits Extrem: General: Yes no clubbing, cyanosis or edema Objective Data Labs CBC & Chem 7: 02/11/22 06:09 02/13/22 06:32 Labs: Laboratory Results - last 24 hr 02/12/22 02/12/22 02/12/22 10:52 15:56 17:11 Creatinine Estim Creat Clear Calc Estimated GFR POC Glucose 171 H 207 H 211 H 02/12/22 02/13/22 02/13/22 20:23 06:32 07:01 Creatinine 1.19 Estim Creat Clear Calc 64.4 Estimated GFR 60 POC Glucose 237 H 178 H 02/13/22 11:09 Creatinine Estim Creat Clear Calc Estimated GFR POC Glucose 247 H Microbiology Microbiology Results: Microbiology 02/09/22 14:57 Blood - Venous Blood Culture - Preliminary No growth after 48 hours. 02/09/22 14:52 Blood - Venous Blood Culture - Preliminary No growth after 48 hours. 02/07/22 04:20 Blood - Venous Blood Culture - Final Streptococcus group c 02/07/22 04:20 Blood - Venous Blood Culture - Final Streptococcus group c Procedures Date of Service Date of Service: 02/13/22 Assessment & Plan Assessment and plan (1) Chronic kidney disease, unspecified: Status: Acute (2) HUGO (acute kidney injury): Status: Acute Assessment and Plan: 71-year-old male with acute kidney injury. ? Patient likely to have prerenal azotemia.? He was clinically volume depleted.? He was on diuretic, Lasix which could have also contributed to his renal insufficiency. ? In the absence of hematuria/pyuria, I doubt the patient has acute GN/interstitial disease. Plan: #) HUGO, non-oliguric: WOuld hold acei and lasix one additional day. S-Cr back to BL. Renal panel daily. Monitor K, loklema 10G prn K> 5.0 Mild metabolic acidosis with non-anion gap type. Improved with IVF?s. #) CKD stage 3 at baseline in the setting of longstanding hypertension, diabetes, possible renovascular disease. Will need renal f/u following discharge. Noted microalbuminuria. Will need to up-titrate acei. #) Cellulitis of the lower extremity. Renal dosing abx. Thank you for allowing me to participate in medical management of the patient. Time Spent With Patient Time: Total time spent is greater than 50% in coordination of care (as documented) at patient's floor/unit and/or counseling patient: Progress Note: Quality Stroke Does the patient have a stroke diagnosis?: No
[2022-02-13 19:01] VITALS: BP 147/65; PULSE 55; RESP 18; TEMP 36.6; O2SAT 95
--- NOTE | 2022-02-13 19:37 | HO.POSTANES ---
Post Anesthesia Evaluation Post Anesthesia Evaluation Vital Signs: Vital Signs Temp Pulse Resp BP Pulse Ox 02/13/22 19:01 98 F 55 18 147/65 H 95 02/13/22 15:37 98.6 F 54 18 143/66 H 96 02/13/22 11:08 97.1 F 58 18 137/59 L 96 Anesthesia: Monitored Mental Status: Awake Pain Control: Satisfactory Nausea/Vomiting: None Hydration: Adequate Anesthesia-Related Issues: No Anes. Related Issues
[2022-02-13] MEDS: Ezetimibe 10 MG TABLET PO (22:15)
[2022-02-13] MEDS: Atorvastatin Calcium 80 MG TABLET PO (22:15)
[2022-02-14] VITALS (7 sets, daily range): BP systolic 119–169; BP diastolic 62–89; PULSE 50–99; RESP 16–20; TEMP 36.2–37.1; O2SAT 93–98
[2022-02-14] MEDS: Omeprazole 20 MG CAPSULE.DR PO ×2 (06:08→15:53)
[2022-02-14] MEDS: Levothyroxine Sodium 50 MCG TABLET PO (06:08)
[2022-02-14 06:52] LABS: Glucose, Whole Blood 205 mg/dL (60-115)
[2022-02-14 06:54] LABS: Glucose, Whole Blood 220 mg/dL (60-115)
[2022-02-14 07:02] LABS: Estimated Glomerular Filt Rate > 60
[2022-02-14] MEDS: Insulin Lispro 100 UNIT/ML 3 ML VIAL SUBCUT ×4 (08:01→21:37)
[2022-02-14] MEDS: Insulin Glargine,Hum.rec.anlog 100 UNIT/ML 10 ML VIAL 22 UNIT SUBCUT (08:02)
[2022-02-14] MEDS: 0.9 % Sodium Chloride Flush 10 ML SYRINGE 5 ML IVFLUSH ×4 (08:04→20:21)
[2022-02-14] MEDS: 0.9 % Sodium Chloride Flush 3 ML SYRINGE IVFLUSH (08:04)
[2022-02-14] MEDS: Docusate Sodium 100 MG CAPSULE PO ×2 (08:05→20:21)
[2022-02-14] MEDS: Apixaban 5 MG TABLET PO ×2 (08:05→20:21)
[2022-02-14] MEDS: Metoprolol Succinate ER 25 MG TAB.ER.24H PO (08:05)
[2022-02-14] MEDS: Furosemide 40 MG TABLET PO (08:05)
[2022-02-14] MEDS: Magnesium Oxide 400 MG TABLET PO ×3 (08:05→20:21)
--- NOTE | 2022-02-14 08:26 | HO.PM.IMPN ---
Subjective Subjective Date of Service: 02/20/22 Interval History: strep c bacteremia,ckd Review of Systems Leg erythema seems to be improved significantly, denies any chest pain or shortness of breath or abdominal pain fever or chills . Physical Exam Vital Signs: Vital Signs: Last Vital Signs Temp 97.3 F 02/14/22 07:16 Pulse 68 02/14/22 07:16 Resp 20 02/14/22 07:16 BP 135/65 02/14/22 07:16 Pulse Ox 93 02/14/22 07:16 BMI result Body Mass Index 28.5 Appearance: Alert.? Oriented X3. cvs: irregular rythem, [id number]. res:fair air netry,no rales or wheezing. abd: no rebound or guarding ,nt, bs present. ext pulses present , no cyanosis right leg swleling and bruise ,erythema/swelling improving left foot bottom -had ulcer (? chronic) -no discharge , no erythema dry buttock area -mild erythema , itching, does not seems pressure injury ,moniter neuro: axo3 , nonfocal. Objective Data Active Medications Acetaminophen (Acetaminophen 325 Mg Tablet) 650 mg PO ONCE PRN PRN Reason: Pain, Mild (Pain Scale 1-3) Apixaban (Apixaban 5 Mg Tablet) 5 mg PO BID [facility] Last Admin: 02/14/22 08:05 Dose: 5 mg Documented by: DANY Atorvastatin Calcium (Atorvastatin Calcium 80 Mg Tablet) 80 mg PO BEDTIME [facility] Last Admin: 02/13/22 22:15 Dose: 80 mg Documented by: KING Dextrose (Dextrose 50 % 25 Gm/50 Ml Syringe) 25 gm IVPUSH Q15M PRN; Protocol PRN Reason: per Hypoglycemia Standing Ord. Docusate Sodium (Docusate Sodium 100 Mg Capsule) 100 mg PO BID [facility] Last Admin: 02/14/22 08:05 Dose: 100 mg Documented by: DANY Ezetimibe (Ezetimibe 10 Mg Tablet) 10 mg PO BEDTIME [facility] Last Admin: 02/13/22 22:15 Dose: 10 mg Documented by: KING Furosemide (Furosemide 40 Mg Tablet) 40 mg PO DAILY [facility]; Protocol Last Admin: 02/14/22 08:05 Dose: 40 mg Documented by: DANY Glucose (Glucose Gel 15 Gm Gel..Gram.) 15 gm PO Q15M PRN; Protocol PRN Reason: per Hypoglycemia Standing Ord. Ceftriaxone Sodium 2 gm/ (Sodium Chloride) 50 mls @ 100 mls/hr IV Q24H [facility] Last Infusion: 02/13/22 17:28 Dose: 0 mls/hr Documented by: DONNIE Insulin Glargine (Insulin Glargine,Hum.Rec.Anlog 100 Unit/Ml 10 Ml Vial) 22 unit SUBCUT DAILY [facility] Last Admin: 02/14/22 08:02 Dose: 22 unit Documented by: DANY Insulin Human Lispro (Insulin Lispro 100 Unit/Ml 3 Ml Vial) 0 unit SUBCUT QIDACHS [facility]; Protocol Last Admin: 02/14/22 08:01 Dose: 2 unit Documented by: DANY Levothyroxine Sodium (Levothyroxine Sodium 50 Mcg Tablet) 50 mcg PO Q2D@0630 [facility] Last Admin: 02/14/22 06:08 Dose: 50 mcg Documented by: KING Magnesium Oxide (Magnesium Oxide 400 Mg Tablet) 400 mg PO TID [facility] Last Admin: 02/14/22 08:05 Dose: 400 mg Documented by: DANY Metoprolol Succinate (Metoprolol Succinate Er 25 Mg Tab.Er.24h) 25 mg PO DAILY [facility]; Protocol Last Admin: 02/14/22 08:05 Dose: 25 mg Documented by: DANY Nystatin (Nystatin Powder 15 Gm Bottle) 1 appl TOPICAL BID [facility]; Protocol Last Admin: 02/13/22 22:23 Dose: Not Given Documented by: KING Non-Admin Reason: Patient Refused Omeprazole (Omeprazole 20 Mg Chet.) 20 mg PO BID@0630,1630 [facility] Last Admin: 02/14/22 06:08 Dose: 20 mg Documented by: KING Ondansetron HCl (Ondansetron Hcl 4 Mg/2 Ml Vial) 4 mg IVPUSH ONCE PRN PRN Reason: Nausea and Vomiting Pharmacy Consult (Consult Rx Perform Med Rec) 1 each MISCELLANE ONCE PRN PRN Reason: Consult order Sodium Chloride (0.9 % Sodium Chloride Flush 3 Ml Syringe) 3 ml IVFLUSH QSHIFT [facility] Last Admin: 02/14/22 08:04 Dose: 3 ml Documented by: DANY Sodium Chloride (0.9 % Sodium Chloride Flush 10 Ml Syringe) 5 ml IVFLUSH TID [facility] Last Admin: 02/14/22 08:04 Dose: 5 ml Documented by: DANY Tamsulosin HCl (Tamsulosin Hcl 0.4 Mg Capsule) 0.4 mg PO DAILY@1700 [facility] Last Admin: 02/13/22 16:53 Dose: 0.4 mg Documented by: DONNIE Labs CBC & Chem 7: 02/11/22 06:09 02/17/22 06:34 Labs: Laboratory Results - last 24 hr 02/12/22 02/12/22 02/12/22 10:52 15:56 17:11 Estim Creat Clear Calc Estimated GFR POC Glucose 171 H 207 H 211 H 02/12/22 02/13/22 02/13/22 20:23 07:01 11:09 Estim Creat Clear Calc Estimated GFR POC Glucose 237 H 178 H 247 H 02/13/22 02/13/22 02/14/22 16:11 19:36 06:38 Estim Creat Clear Calc 66.0 Estimated GFR > 60 POC Glucose 220 H 205 H Assessment and Plan (1) Group C streptococcal infection: Status: Acute Plan 71-year-old male with a past medical history of hypertension, hyperlipidemia, diabetes, CAD status post CABG, 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 1. possible sepsis? secondary to cellulitis/bacteremia ?tachypnea and fever resolved , leukocytosis. Blood culture - Gram-positive cocci. repeat blood cultures added. Previous blood culture were Streptococcus group C during last admission. Blood culture again come back 6 Streptococcus group C sensitive to ceftriaxone.? Repeat blood culture neg @ 48 hours Id eval -Mri foot done -noted?least focal osteomyelitis involving the proximal 4th metatarsal/Findings indicative of an infection in the forefoot. There is a superficial ulceration with sinus tract communicating with an abscess abutting the 4th metatarsal ?? ?echo: Conclusions: - Normal left ventricular size and systolic function. There is ? mildly increased left ventricular wall thickness.? The visually? estimated ejection fraction is between 55-60%. ? - There is a flattened septum in systole and diastole consistent with right ventricular pressure and volume overload. ? - Moderately increased right ventricular cavity size.? There is? moderate to severely decreased right ventricular systolic? function.? - A bioprosthetic aortic valve is present.? The prosthetic aortic valve appears to be functioning normally.? - severe mitral annular calcification with some mobile MAC noted in some views. this is likely due to mobile mitral annular ? calcification and a vegetation is less likely.? Id suggested to switch to iv ceftriaxone day4 as per above blood cultures . suregry eval-noted , continue current antibiotics ,no further surgical interventions Patient is to follow up outpatient with surgery in [facility]-doctor Benja. DEREK-grossly no vegetation preliminary Discussed with ID and about cardio. Will continue IV antibiotics for 6 weeks, PICC line order placed. 2. 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 hold metoprolol will hold that. Cardio evaluation-for recurrent bacteremia Streptococcus C, heart rate improving Cardiology follow up. 3. thombocytopenia :? Probably chronic, fluctuating platelets level.? Will continue to monitor. 4. dm:fs 135-200. fs with coverage 5. HLP:? atorvastatin. 6. Hypertension:? Blood pressure is acceptable Hold lisinopril due to HUGO. 7. HUGO: Patient received fluid in the ED, Seen by Nephrology, improved with hydration-initially received IV, encouraged for p.o. hydration,? to monitor. 8. buttock area :? Does not seem like pressure injury, ordered nystatin powder, continue to monitor, frequent turning, out of bed to chair, continue nursing care. Need for inpatient:? Streptococcus group C bacteremia recurrent, foot osteomyelitis on iv antibiotics-need picc and need infusion set up-awiting for that. Quality Stroke Does the patient have a stroke diagnosis?: No VTE Prior VTE?: No VTE Risk Level:: Medical - moderate - high VTE Device Contraindication: N/A - Device Ordered VTE Drug Contraindication: N/A - Med Ordered
--- NOTE | 2022-02-14 11:47 | MHC.CM.PN ---
Male 71 DX Infection. DP [facility] daily for ABX infusion. All info requested has been sent to the facility. A call was received to schedule an appointment time on Thursday. Patient's appointment is 4pm daily. The last dose will be received on 03/25/22.
[2022-02-14] MEDS: Nystatin Powder 15 GM BOTTLE 1 APPL TOPICAL (11:59)
[2022-02-14] MEDS: amLODIPine Besylate 5 MG TABLET PO (13:26)
[2022-02-14 14:39] LABS: Glucose, Whole Blood 248 mg/dL (60-115)
[2022-02-14 14:39] LABS: Glucose, Whole Blood 169 mg/dL (60-115)
[2022-02-14] MEDS: cefTRIAXone sodium 2 GM in 0.9 % Sodium Chloride 50 ML IV (15:51)
[2022-02-14] MEDS: Tamsulosin HCL 0.4 MG CAPSULE PO (15:51)
[2022-02-14] MEDS: Ezetimibe 10 MG TABLET PO (20:21)
[2022-02-14] MEDS: Atorvastatin Calcium 80 MG TABLET PO (20:21)
[2022-02-15 04:00] VITALS: BP 143/75; PULSE 76; RESP 16; TEMP 36.4; O2SAT 95
[2022-02-15] MEDS: Omeprazole 20 MG CAPSULE.DR PO ×2 (06:24→17:30)
[2022-02-15 07:12] LABS: Creatinine Clr Calc Pharmacy 63.3; Estimated Glomerular Filt Rate 59
[2022-02-15 08:00] VITALS: BP 147/60; PULSE 63; RESP 20; TEMP 36.4; O2SAT 94
[2022-02-15] MEDS: Insulin Lispro 100 UNIT/ML 3 ML VIAL SUBCUT ×4 (09:00→21:16)
[2022-02-15] MEDS: amLODIPine Besylate 5 MG TABLET PO (10:04)
[2022-02-15] MEDS: Insulin Glargine,Hum.rec.anlog 100 UNIT/ML 10 ML VIAL 22 UNIT SUBCUT (10:05)
[2022-02-15] MEDS: Furosemide 40 MG TABLET PO (10:06)
[2022-02-15] MEDS: Metoprolol Succinate ER 25 MG TAB.ER.24H PO (10:07)
[2022-02-15] MEDS: Magnesium Oxide 400 MG TABLET PO ×3 (10:07→21:16)
[2022-02-15] MEDS: 0.9 % Sodium Chloride Flush 10 ML SYRINGE 5 ML IVFLUSH ×3 (10:08→21:16)
[2022-02-15] MEDS: 0.9 % Sodium Chloride Flush 3 ML SYRINGE IVFLUSH ×3 (10:08→21:16)
[2022-02-15] MEDS: Docusate Sodium 100 MG CAPSULE PO ×2 (10:09→21:15)
[2022-02-15] MEDS: Apixaban 5 MG TABLET PO ×2 (10:09→21:15)
[2022-02-15 12:00] VITALS: BP 123/53; PULSE 58; RESP 20; TEMP 36.1; O2SAT 94
--- NOTE | 2022-02-15 13:13 | HO.PM.IMPN ---
Subjective Subjective Date of Service: 02/15/22 Interval History: Offers no acute complaints, denies headache, lightheadedness or dizziness, no acute events overnight, no leg pain. 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 no dizziness CVS no chest pain, no palpitation GI no nausea, no vomiting no urinary urgency, no dysuria Review of Systems: Yes all other systems are reviewed and are negative Physical Exam Vital Signs: Vital Signs: Last Vital Signs Temp 97.0 F 02/15/22 12:00 Pulse 58 02/15/22 12:00 Resp 20 02/15/22 12:00 BP 123/53 L 02/15/22 12:00 Pulse Ox 94 02/15/22 12:00 BMI result Body Mass Index 28.5 Const: Other: General awake aler t x3 Neck no JVD c vs: irregular ryth em resp: Clear to auscultation no w heeze no rhonchi a bd: Abdomen soft nontender, bowel s ounds are ext pul ses present , no e lou left foot isabel ttom -open ulcer,n o discharge , no e rythema dry buttoc k area -mild eryth oliverio , itching, no open sores neuro: axo3 , nonfocal. Objective Data Active Medications Acetaminophen (Acetaminophen 325 Mg Tablet) 650 mg PO ONCE PRN PRN Reason: Pain, Mild (Pain Scale 1-3) Amlodipine Besylate (Amlodipine Besylate 10 Mg Tablet) 10 mg PO DAILY [facility]; Protocol Apixaban (Apixaban 5 Mg Tablet) 5 mg PO BID [facility] Last Admin: 02/15/22 10:09 Dose: 5 mg Documented by: PEREZ Atorvastatin Calcium (Atorvastatin Calcium 80 Mg Tablet) 80 mg PO BEDTIME [facility] Last Admin: 02/14/22 20:21 Dose: 80 mg Documented by: DEANNA Dextrose (Dextrose 50 % 25 Gm/50 Ml Syringe) 25 gm IVPUSH Q15M PRN; Protocol PRN Reason: per Hypoglycemia Standing Ord. Docusate Sodium (Docusate Sodium 100 Mg Capsule) 100 mg PO BID [facility] Last Admin: 02/15/22 10:09 Dose: 100 mg Documented by: PEREZ Ezetimibe (Ezetimibe 10 Mg Tablet) 10 mg PO BEDTIME [facility] Last Admin: 02/14/22 20:21 Dose: 10 mg Documented by: DEANNA Furosemide (Furosemide 40 Mg Tablet) 40 mg PO DAILY [facility]; Protocol Last Admin: 02/15/22 10:06 Dose: 40 mg Documented by: PEREZ Glucose (Glucose Gel 15 Gm Gel..Gram.) 15 gm PO Q15M PRN; Protocol PRN Reason: per Hypoglycemia Standing Ord. Ceftriaxone Sodium 2 gm/ (Sodium Chloride) 50 mls @ 100 mls/hr IV Q24H [facility] Last Infusion: 02/14/22 16:41 Dose: 0 mls/hr Documented by: DEANNA Insulin Glargine (Insulin Glargine,Hum.Rec.Anlog 100 Unit/Ml 10 Ml Vial) 22 unit SUBCUT DAILY [facility] Last Admin: 02/15/22 10:05 Dose: 22 unit Documented by: PEREZ Insulin Human Lispro (Insulin Lispro 100 Unit/Ml 3 Ml Vial) 0 unit SUBCUT QIDACHS [facility]; Protocol Last Admin: 02/15/22 12:17 Dose: 6 unit Documented by: PEREZ Levothyroxine Sodium (Levothyroxine Sodium 50 Mcg Tablet) 50 mcg PO Q2D@0630 [facility] Last Admin: 02/14/22 06:08 Dose: 50 mcg Documented by: RICKIERORebeka Magnesium Oxide (Magnesium Oxide 400 Mg Tablet) 400 mg PO TID [facility] Last Admin: 02/15/22 10:07 Dose: 400 mg Documented by: PEREZ Metoprolol Succinate (Metoprolol Succinate Er 25 Mg Tab.Er.24h) 25 mg PO DAILY [facility]; Protocol Last Admin: 02/15/22 10:07 Dose: 25 mg Documented by: PEREZ Nystatin (Nystatin Powder 15 Gm Bottle) 1 appl TOPICAL BID [facility]; Protocol Last Admin: 02/15/22 10:12 Dose: Not Given Documented by: PEREZ Non-Admin Reason: Patient Refused Omeprazole (Omeprazole 20 Mg Chet.) 20 mg PO BID@0630,1630 [facility] Last Admin: 02/15/22 06:24 Dose: 20 mg Documented by: SMILEY Ondansetron HCl (Ondansetron Hcl 4 Mg/2 Ml Vial) 4 mg IVPUSH ONCE PRN PRN Reason: Nausea and Vomiting Pharmacy Consult (Consult Rx Perform Med Rec) 1 each MISCELLANE ONCE PRN PRN Reason: Consult order Sodium Chloride (0.9 % Sodium Chloride Flush 3 Ml Syringe) 3 ml IVFLUSH QSHIFT [facility] Last Admin: 02/15/22 10:08 Dose: 3 ml Documented by: PEREZ Sodium Chloride (0.9 % Sodium Chloride Flush 10 Ml Syringe) 5 ml IVFLUSH TID [facility] Last Admin: 02/15/22 10:08 Dose: 5 ml Documented by: PEREZ Tamsulosin HCl (Tamsulosin Hcl 0.4 Mg Capsule) 0.4 mg PO DAILY@1700 [facility] Last Admin: 02/14/22 15:51 Dose: 0.4 mg Documented by: DEANNA Labs CBC & Chem 7: 02/11/22 06:09 02/15/22 06:26 Labs: Laboratory Results - last 24 hr 02/14/22 02/14/22 02/15/22 07:10 11:51 06:26 Estim Creat Clear Calc 63.3 Estimated GFR 59 POC Glucose 169 H 248 H Microbiology Microbiology Results: Microbiology 02/09/22 14:52 Blood Culture - Final Blood - Venous No growth after 5 days. 02/09/22 14:57 Blood Culture - Final Blood - Venous No growth after 5 days. Assessment and Plan (1) Group C streptococcal infection: Status: Acute (2) Uncontrolled diabetes mellitus with hyperglycemia: Status: Acute (3) HUGO (acute kidney injury): Status: Acute (4) Status post aortic valve replacement with bioprosthetic valve: Status: Acute (5) Persistent atrial fibrillation: Status: Acute (6) Bacteremia: Status: Acute Plan 71-year-old male with a past medical history of hypertension, hyperlipidemia, diabetes, CAD status post CABG, 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 1. Sepsis secondary to cellulitis/bacteremia Sepsis resolved? Blood culture positive for Streptococcus group C on February 07, repeat blood cultures negative Mri foot showed focal osteomyelitis involving the proximal 4th metatarsal Echocardiogram showed EF 55-60%, moderate to severely decreased right ventricular systolic function, bioprosthetic aortic well functioning normally ,mitral annular calcification with some mobile MAC noted in some views. likely due to mobile mitral annular ? calcification and a vegetation felt to be less likely.? DEREK showed no vegetation Seen by General surgery they recommend to continue current antibiotic no surgical intervention needed. Id recommend 6 weeks of IV antibiotic PICC line placed on February 12, patient to receive IV antibiotic as outpatient social service manager arranging for safe discharge. 2. Chronic persistent atrial fibrillation ?continue metoprolol and Eliquis. 3. thombocytopenia :? Probably chronic,continue to monitor. 4. Diabetes mellitus blood sugars stable continue Lantus and insulin sliding scale 5. HLP: Continue atorvastatin and ZT 6. Hypertension:? Blood pressure is stable continue metoprolol, Lasix, amlodipine, lisinopril discontinued due to HUGO 7. HUGO resolved Need for inpatient:? On IV antibiotics for recurrent Streptococcus group C bacteremia , for foot osteomyelitis . Quality Stroke Does the patient have a stroke diagnosis?: No VTE Prior VTE?: No VTE Risk Level:: Medical - moderate - high VTE Device Contraindication: N/A - Device Ordered VTE Drug Contraindication: N/A - Med Ordered
--- NOTE | 2022-02-15 13:29 | PM.PNNEP ---
Subjective Subjective Date of Service: 02/15/22 Principal diagnosis: bacteremia, hx Bio AVR Interval history: Seen and examined, events noted Physical Exam Vital Signs: Vital Signs: Last Vital Signs Temp 97.0 F 02/15/22 12:00 Pulse 58 02/15/22 12:00 Resp 20 02/15/22 12:00 BP 123/53 L 02/15/22 12:00 Pulse Ox 94 02/15/22 12:00 BMI result Body Mass Index 28.5 Const: General: comfortable and no acute distress Orientation/consciousness: patient oriented x3 HEENT: Head: Yes normocephalic and Yes atraumatic Neck: Neck: Yes no JVD Resp: Auscultation: clear to auscultation bilaterally Cardio: Jugular venous distension: no JVD Rhythm: abnormal rhythm Heart sounds: S1 normal heart sound present and S2 normal heart sound present GI: Auscultation: normal bowel sounds Skin: General skin exam: erythema Neuro: General: patient oriented x3, moves all extremities and no focal motor deficits Extrem: General: Yes no clubbing, cyanosis or edema Objective Data Labs CBC & Chem 7: 02/11/22 06:09 02/15/22 06:26 Labs: Laboratory Results - last 24 hr 02/14/22 02/14/22 02/15/22 07:10 11:51 06:26 Creatinine 1.21 Estim Creat Clear Calc 63.3 Estimated GFR 59 POC Glucose 169 H 248 H Microbiology Microbiology Results: Microbiology 02/09/22 14:52 Blood - Venous Blood Culture - Final No growth after 5 days. 02/09/22 14:57 Blood - Venous Blood Culture - Final No growth after 5 days. 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 1. HUGO: resolved 2. HTN: controlled now on norvasc REC: cont to track renal func, K and BPs Time Spent With Patient Time: Total time spent is greater than 50% in coordination of care (as documented) at patient's floor/unit and/or counseling patient: Progress Note: Quality Stroke Does the patient have a stroke diagnosis?: No
[2022-02-15 15:18] VITALS: BP 121/54; PULSE 66; RESP 14; TEMP 36.7; O2SAT 95
[2022-02-15] MEDS: Tamsulosin HCL 0.4 MG CAPSULE PO (18:00)
[2022-02-15] MEDS: cefTRIAXone sodium 2 GM in 0.9 % Sodium Chloride 50 ML IV (18:50)
[2022-02-15 19:03] VITALS: BP 152/72; PULSE 73; RESP 14; TEMP 36.7; O2SAT 97
[2022-02-15] MEDS: Atorvastatin Calcium 80 MG TABLET PO (21:15)
[2022-02-15] MEDS: Ezetimibe 10 MG TABLET PO (21:15)
[2022-02-15 23:26] VITALS: BP 129/61; PULSE 78; RESP 18; TEMP 36.7; O2SAT 91
[2022-02-16 03:16] VITALS: BP 122/67; PULSE 61; RESP 18; TEMP 36.4; O2SAT 94
[2022-02-16] MEDS: Levothyroxine Sodium 50 MCG TABLET PO (05:58)
[2022-02-16] MEDS: Omeprazole 20 MG CAPSULE.DR PO ×2 (05:58→15:38)
[2022-02-16] MEDS: Insulin Lispro 100 UNIT/ML 3 ML VIAL SUBCUT ×3 (07:25→17:03)
[2022-02-16 07:30] VITALS: BP 130/65; PULSE 69; RESP 17; TEMP 36.6; O2SAT 95
[2022-02-16 08:51] LABS: Creatinine Clr Calc Pharmacy 61.8; Estimated Glomerular Filt Rate 57
[2022-02-16] MEDS: Metoprolol Succinate ER 25 MG TAB.ER.24H PO (08:54)
[2022-02-16] MEDS: Furosemide 40 MG TABLET PO (08:54)
[2022-02-16] MEDS: Magnesium Oxide 400 MG TABLET PO ×3 (08:54→21:50)
[2022-02-16] MEDS: Apixaban 5 MG TABLET PO ×2 (08:55→21:50)
[2022-02-16] MEDS: Insulin Glargine,Hum.rec.anlog 100 UNIT/ML 10 ML VIAL 22 UNIT SUBCUT (08:55)
[2022-02-16] MEDS: amLODIPine Besylate 10 MG TABLET PO (08:55)
[2022-02-16] MEDS: Docusate Sodium 100 MG CAPSULE PO ×2 (08:55→21:50)
[2022-02-16] MEDS: 0.9 % Sodium Chloride Flush 3 ML SYRINGE IVFLUSH ×3 (08:56→21:50)
[2022-02-16] MEDS: 0.9 % Sodium Chloride Flush 10 ML SYRINGE 5 ML IVFLUSH ×3 (08:56→21:50)
[2022-02-16] MEDS: Nystatin Powder 15 GM BOTTLE 1 APPL TOPICAL (08:57)
[2022-02-16 11:03] VITALS: BP 139/59; PULSE 64; RESP 16; TEMP 36.3; O2SAT 95
--- NOTE | 2022-02-16 13:11 | P.PNIM_ITS ---
Subjective Subjective Date of Service: 02/16/22 Interval History: Denies fever chills, receiving IV antibiotics no acute issues overnight. 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 Clear to?auscultation no wheeze no rhonchi abd:? Abdomen soft non tender, bowel sounds are ext pulses present , no edema left foot bottom superficial ulcer,no discharge , no erythema neuro:axo3 , non focal. Psych appropriate affect Objective Data Active Medications Acetaminophen (Acetaminophen 325 Mg Tablet) 650 mg PO ONCE PRN PRN Reason: Pain, Mild (Pain Scale 1-3) Amlodipine Besylate (Amlodipine Besylate 10 Mg Tablet) 10 mg PO DAILY [facility]; Protocol Last Admin: 02/16/22 08:55 Dose: 10 mg Documented by: KIMBERLEY Apixaban (Apixaban 5 Mg Tablet) 5 mg PO BID [facility] Last Admin: 02/16/22 08:55 Dose: 5 mg Documented by: KIMBERLEY Atorvastatin Calcium (Atorvastatin Calcium 80 Mg Tablet) 80 mg PO BEDTIME [facility] Last Admin: 02/15/22 21:15 Dose: 80 mg Documented by: SMILEY Dextrose (Dextrose 50 % 25 Gm/50 Ml Syringe) 25 gm IVPUSH Q15M PRN; Protocol PRN Reason: per Hypoglycemia Standing Ord. Docusate Sodium (Docusate Sodium 100 Mg Capsule) 100 mg PO BID [facility] Last Admin: 02/16/22 08:55 Dose: 100 mg Documented by: KIMBERLEY Ezetimibe (Ezetimibe 10 Mg Tablet) 10 mg PO BEDTIME [facility] Last Admin: 02/15/22 21:15 Dose: 10 mg Documented by: SMILEY Furosemide (Furosemide 40 Mg Tablet) 40 mg PO DAILY [facility]; Protocol Last Admin: 02/16/22 08:54 Dose: 40 mg Documented by: KIMBERLEY Glucose (Glucose Gel 15 Gm Gel..Gram.) 15 gm PO Q15M PRN; Protocol PRN Reason: per Hypoglycemia Standing Ord. Ceftriaxone Sodium 2 gm/ (Sodium Chloride) 50 mls @ 100 mls/hr IV Q24H [facility] Last Infusion: 02/15/22 19:43 Dose: 0 mls/hr Documented by: SMILEY Insulin Glargine (Insulin Glargine,Hum.Rec.Anlog 100 Unit/Ml 10 Ml Vial) 22 unit SUBCUT DAILY [facility] Last Admin: 02/16/22 08:55 Dose: 22 unit Documented by: KIMBERLEY Insulin Human Lispro (Insulin Lispro 100 Unit/Ml 3 Ml Vial) 0 unit SUBCUT QIDACHS [facility]; Protocol Last Admin: 02/16/22 11:52 Dose: 2 unit Documented by: KIMBERLEY Levothyroxine Sodium (Levothyroxine Sodium 50 Mcg Tablet) 50 mcg PO Q2D@0630 [facility] Last Admin: 02/16/22 05:58 Dose: 50 mcg Documented by: GINA Magnesium Oxide (Magnesium Oxide 400 Mg Tablet) 400 mg PO TID [facility] Last Admin: 02/16/22 08:54 Dose: 400 mg Documented by: KIMBERLEY Metoprolol Succinate (Metoprolol Succinate Er 25 Mg Tab.Er.24h) 25 mg PO DAILY [facility]; Protocol Last Admin: 02/16/22 08:54 Dose: 25 mg Documented by: KIMBERLEY Nystatin (Nystatin Powder 15 Gm Bottle) 1 appl TOPICAL BID [facility]; Protocol Last Admin: 02/16/22 08:57 Dose: 1 appl Documented by: KIMBERLEY Omeprazole (Omeprazole 20 Mg Capsule.) 20 mg PO BID@0630,1630 [facility] Last Admin: 02/16/22 05:58 Dose: 20 mg Documented by: GINA Ondansetron HCl (Ondansetron Hcl 4 Mg/2 Ml Vial) 4 mg IVPUSH ONCE PRN PRN Reason: Nausea and Vomiting Pharmacy Consult (Consult Rx Perform Med Rec) 1 each MISCELLANE ONCE PRN PRN Reason: Consult order Sodium Chloride (0.9 % Sodium Chloride Flush 3 Ml Syringe) 3 ml IVFLUSH QSHIFT [facility] Last Admin: 02/16/22 08:56 Dose: 3 ml Documented by: KIMBERLEY Sodium Chloride (0.9 % Sodium Chloride Flush 10 Ml Syringe) 5 ml IVFLUSH TID [facility] Last Admin: 02/16/22 08:56 Dose: 5 ml Documented by: KIMBERLEY Tamsulosin HCl (Tamsulosin Hcl 0.4 Mg Capsule) 0.4 mg PO DAILY@1700 [facility] Last Admin: 02/15/22 18:00 Dose: 0.4 mg Documented by: PEREZ Labs CBC & Chem 7: 02/11/22 06:09 02/16/22 07:50 Labs: Laboratory Results - last 24 hr 02/16/22 07:50 Estim Creat Clear Calc 61.8 Estimated GFR 57 Assessment and Plan (1) Group C streptococcal infection: Status: Acute (2) Uncontrolled diabetes mellitus with hyperglycemia: Status: Acute (3) HUGO (acute kidney injury): Status: Acute (4) Status post aortic valve replacement with bioprosthetic valve: Status: Acute (5) Persistent atrial fibrillation: Status: Acute (6) Bacteremia: Status: Acute Plan 71-year-old male with a past medical history of hypertension, hyperlipidemia, diabetes, CAD status post CABG, 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 1.Sepsis secondary to cellulitis/bacteremia Sepsis resolved? Blood culture positive for Streptococcus group C on February 07, repeat blood culture s negative Mri foot showed focal osteomyelitis involving the proximal 4th metatarsal Echocardiogram showed EF 55-60%, moderate to severely decreased right ventricular systolic function, bioprosthetic aortic well functioning normally ,mitral annular calcification with some mobile MAC noted in some views. likely due to mobile mitral annular ? calcification and a vegetation felt to be less likely.? DEREK showed no vegetation Seen by General surgery they recommend to continue current antibiotic no surgical intervention needed. Id recommend 6 weeks of IV ceftriaxone 2 g daily (started on February 09) PICC line placed on February 12, patient to receive IV antibiotic as outpatient social scientist arranging for safe discharge. 2. Chronic persistent atrial fibrillation ?continue metoprolol and Eliquis. 3. thombocytopenia :? Probably chronic,continue to monitor. 4. Diabetes mellitus blood sugars stable continue Lantus and insulin sliding scale 5. HLP: Continue atorvastatin and ZT 6. Hypertension:? Blood pressure is stable continue metoprolol, Lasix, amlodipine, lisinopril discontinued due to HUGO 7. HUGO resolved Need for inpatient:? On IV antibiotics for recurrent Streptococcus group C bacteremia , for foot osteomyelitis need arrangement for IV antibiotic as outpatient, being arranged by counseling case managerrollout manager Stroke Does the patient have a stroke diagnosis?: No VTE Prior VTE?: No VTE Risk Level:: Medical - moderate - high VTE Device Contraindication: N/A - Device Ordered VTE Drug Contraindication: N/A - Med Ordered
[2022-02-16 15:34] VITALS: BP 143/60; PULSE 74; RESP 17; TEMP 36.3; O2SAT 96
[2022-02-16] MEDS: Tamsulosin HCL 0.4 MG CAPSULE PO (17:03)
[2022-02-16 19:59] VITALS: BP 137/64; PULSE 57; RESP 17; TEMP 36.2; O2SAT 97
[2022-02-16] MEDS: Atorvastatin Calcium 80 MG TABLET PO (21:50)
[2022-02-16] MEDS: Ezetimibe 10 MG TABLET PO (21:50)
[2022-02-16 23:59] VITALS: BP 143/66; PULSE 71; RESP 20; TEMP 37.1; O2SAT 93
[2022-02-17 04:00] VITALS: BP 132/60; PULSE 74; RESP 20; TEMP 36.9; O2SAT 97
[2022-02-17] MEDS: Omeprazole 20 MG CAPSULE.DR PO (05:41)
[2022-02-17 07:11] LABS: Creatinine Clr Calc Pharmacy 70.3; Estimated Glomerular Filt Rate > 60
[2022-02-17 07:24] VITALS: BP 139/73; PULSE 63; RESP 16; TEMP 36.6; O2SAT 96
[2022-02-17] MEDS: Apixaban 5 MG TABLET PO (08:31)
[2022-02-17] MEDS: Furosemide 40 MG TABLET PO (08:31)
[2022-02-17] MEDS: amLODIPine Besylate 10 MG TABLET PO (08:31)
[2022-02-17] MEDS: Metoprolol Succinate ER 25 MG TAB.ER.24H PO (08:31)
[2022-02-17] MEDS: Docusate Sodium 100 MG CAPSULE PO (08:31)
[2022-02-17] MEDS: Magnesium Oxide 400 MG TABLET PO (08:31)
[2022-02-17] MEDS: Nystatin Powder 15 GM BOTTLE 1 APPL TOPICAL (08:32)
[2022-02-17] MEDS: Insulin Lispro 100 UNIT/ML 3 ML VIAL SUBCUT ×2 (08:32→11:56)
[2022-02-17] MEDS: 0.9 % Sodium Chloride Flush 10 ML SYRINGE 5 ML IVFLUSH (08:33)
[2022-02-17] MEDS: Insulin Glargine,Hum.rec.anlog 100 UNIT/ML 10 ML VIAL 22 UNIT SUBCUT (08:33)
[2022-02-17 11:04] VITALS: BP 132/77; PULSE 56; RESP 17; TEMP 36.2; O2SAT 99
[2022-02-17] MEDS: cefTRIAXone sodium 2 GM in 0.9 % Sodium Chloride 50 ML IV (11:56)
--- NOTE | 2022-02-17 12:26 | PM.DS ---
DS: Providers Provider Date of Service: 02/17/22 Date of admission: 02/07/22 10:21 Primary care physician: Nicolás Rai MD Consults: 02/07/22 10:25 Consult to Infectious Diseases Routine Consulting Provider: Tequila Kang Reason for consultation: cellulitis left leg/left foot dm ulcer Has provider been notified: No 02/07/22 10:27 Consult to Nephrology Routine Consulting Provider: Hugo Chan Reason for consultation: hugo on ckd/cellulitis Has provider been notified: No 02/07/22 16:18 Consult to Cardiology [place]ine Consulting [place] [facility] Reason for consultation: Recurrent bacteremia, history of endocarditis -? If needed DEREK. Has provider been notified: No 02/08/22 19:29 Consult to General Surgery Routine Consulting Provider: [facility] Reason for consultation: osteomyleitis and abcess of left foot. Has provider been notified: No DS: Diagnosis Discharge Diagnosis (1) Group C streptococcal infection: Status: Acute (2) Uncontrolled diabetes mellitus with hyperglycemia: Status: Acute (3) HUGO (acute kidney injury): Status: Acute (4) Status post aortic valve replacement with bioprosthetic valve: Status: Acute (5) Persistent atrial fibrillation: Status: Acute (6) Bacteremia: Status: Acute DS: Summary Hospital Course Hospital Course: History of presenting illness Chief Complaint: leg cellulitis /foot ulcer 71-year-old male with a past medical history of hypertension, hyperlipidemia, diabetes, CAD status post CABG, 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 ?generalized weakness and subject to chills; denies any burning or frequency with urination, denies any back or neck pain or chest pain or palpitations or cough? or sputum. Mentions he has chronic ulcer on his left foot.? 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 1. Patient admitted with a diagnosis of secondary to left leg cellulitis and placed on IV antibiotics, blood cultures x2 came back positive for Streptococcus group C on February 07, repeat blood cultures negative Mri foot showed?focal osteomyelitis involving the proximal 4th metatarsal?,Echocardiogram showed?EF 55-60%, moderate to severely decreased right ventricular systolic function, bioprosthetic aortic well functioning normally ,mitral annular calcification with some mobile MAC noted in some views, likely due to mobile mitral annular calcification and a vegetation felt to be less likely,DEREK obtained for verification that showed no vegetation, patient seen by General surgery they recommend to continue current antibiotic no surgical intervention needed, patient seen by infectious disease Dr. Kang she recommend she recommended 6 weeks of IV ceftriaxone 2 g daily , PICC line placed on February 12, patient will receive IV antibiotic at [facility] outpatient starting from February 18 and ending on March 25 2. Chronic persistent atrial fibrillation ventricular rate stable?continue metoprolol and Eliquis. 3. thombocytopenia Probably chronic, remains stable recommend to follow CBC 4. Diabetes mellitus? blood sugars stable, continue Lantus and insulin sliding scale 5. HLP:? Continue atorvastatin 6. Hypertension:? Blood pressure stable continue metoprolol, Lasix, amlodipine, lisinopril discontinued due to HUGO. 7. HUGO resolved Time Spent with Patient Time attestation: Total time spent providing and/or coordinating discharge services: Discharge coordination time: Greater than 30 minutes Quality: Safe Use of Opioids Does Pt have an Active Cancer Diagnosis on the Problem List?: No Quality: Stroke Does the patient have a stroke diagnosis?: No Physical Exam Vital Signs: Vital Signs: Last Vital Signs Temp 97.2 F 02/17/22 11:04 Pulse 56 02/17/22 11:04 Resp 17 02/17/22 11:04 BP 132/77 02/17/22 11:04 Pulse Ox 99 02/17/22 11:04 BMI result Body Mass Index 28.5 Const: Other: General awake alert x3 Neck no JVD cvs: irregular rythm resp:? Clear to?auscultation no wheeze no rhonchi abd:? Abdomen soft non tender, bowel sounds are ext pulses present , no edema left foot bottom? superficial ulcer,no discharge , no erythema neuro:axo3 , non focal. Psych appropriate affect ? DS: Data Data Completed and Pending Completed studies during hospitalization [Text1]: Procedures Insertion of Infusion Device into Right Atrium, Percutaneous Approach (09/15/21) Insertion of Infusion Device into Superior Vena Cava, Percutaneous Approach (09/15/21) Introduction of Vasopressor into Peripheral Vein, Percutaneous Approach (09/15/21) Labs on day of discharge: Laboratory Results - last 24 hr 02/17/22 06:34 Creatinine 1.09 Estim Creat Clear Calc 70.3 Estimated GFR > 60 Discharge Plan Discharge Patient Disposition: Home, Self-Care Discharge Diagnosis: Strep group C bacteremia, leg cellulitis. Referrals: [facility] [Other] - 1 Week (YOU ARE SCHEDULED TO START RECEIVING YOUR DAILY IV MEDICATIONS AT [facility] ON 02/18/22 AT 4PM. ) Nicolás Rai MD [Primary Care Provider] - 1 Week Discharge Medications: New ceftriaxone 2 gram recon soln 2 g IV Q24H Qty: 40 0RF Rx Instructions: end date 03/25/22 Continued insulin lispro [Humalog KwikPen Insulin] 100 unit/mL insulin pen See Protocol sliding scale dose subcut QIDACHS 0RF Protocol: Insulin Correction Scale Less than or equal to 110 ---- Give (units): 0 111 to 150 Give (units): 0 151 to 200 Give (units): 2 201 to 250 Give (units): 4 251 to 300 Give (units): 6 301 to 350 Give (units): 8 Greater than 350 Give (units): 10 Call if Blood Glucose > : 350 tamsulosin [Flomax] 0.4 mg capsule 0.4 mg PO DAILY@1700 0RF ezetimibe [Zetia] 10 mg tablet 10 mg PO BEDTIME Qty: 90 3RF Eliquis 5 mg tablet 5 mg PO BID Qty: 60 3RF docusate sodium [Stool Softener] 100 mg Capsule 100 mg PO BID 0RF metoprolol succinate [Toprol XL] 25 mg tablet extended release 24 hr 25 mg PO BEDTIME 0RF lisinopril 10 mg tablet 10 mg PO DAILY Qty: 30 5RF atorvastatin 80 mg tablet 80 mg PO BEDTIME 0RF levothyroxine 50 mcg tablet 50 mcg PO Q2D@0630 0RF magnesium oxide 400 mg (241.3 mg magnesium) tablet 400 mg PO TID 0RF insulin glargine 100 unit/mL (3 mL) insulin pen 22 unit subcut DAILY 0RF (DME) blood sugar diagnostic Strip See Rx Instructions ea Not Applicable QID Qty: 10 0RF Rx Instructions: As directed (DME) blood-glucose meter Kit See Rx Instructions ea .ROUTE QID Qty: 1 0RF Rx Instructions: As directed (DME) pen needle, diabetic 32 gauge x 5/32 needle See Rx Instructions ea .ROUTE .MEDSUPPLY Qty: 50 0RF Rx Instructions: As directed omeprazole 20 mg capsule,delayed release(DR/EC) 20 mg PO BID@0630,1630 0RF furosemide [Lasix] 40 mg tablet 40 mg PO DAILY Qty: 90 3RF Discharge Orders: Discharge Order (Routine); Ordered 02/17/22 Ordered By: Long Purvis Diet: diabetic diet Activity on Discharge: As tolerated Stand Alone Forms: Patient Portal Discharge page Care Plan Goals: Streptococcus bacteremia, Recommend to follow-up at [facility] daily for IV ceftriaxone 2 g daily infusion, starting at 16:00 February 18, last dose of antibiotics 03/25/[address], labs ordered Q weekly Health Concerns: Continue all home medications as prescribed Plan of Treatment: Follow-up with primary care physician in 1-2 weeks/ Assessment: As per discharge summary
--- NOTE | 2022-02-17 12:53 | MHC.CM.PN ---
Addendum entered by Sofie Pate 02/17/22 13:35: CM CALLED [facility] AND CONFIRMED PT WILL BE GOING TO [address] [place] [address] IN [place] FOR HIS IV INFUSIONS. PT INFORMED OF ADDRESS AND CHAIR TIME Original Note: PT BEING DISCHARGED HOME TODAY WITH A PLAN TO START RECEIVING DAILY IV INFUSIONS AT [facility] TOMORROW. AT 1600 HOURS MICAELA MET WITH PT TO REVIEW DC PLAN, HE REPORTS UNDERSTANDING SECOND IMM DELIVERED TO TRANSPORT
[2022-02-18 14:48] LABS: Glucose, Whole Blood 255 mg/dL (60-115)
[2022-02-18 14:49] LABS: Glucose, Whole Blood 145 mg/dL (60-115)
[2022-02-18 14:49] LABS: Glucose, Whole Blood 162 mg/dL (60-115)
[2022-02-18 14:50] LABS: Glucose, Whole Blood 220 mg/dL (60-115)
[2022-02-18 14:51] LABS: Glucose, Whole Blood 200 mg/dL (60-115)
[2022-02-18 14:52] LABS: Glucose, Whole Blood 217 mg/dL (60-115)
[2022-02-18 14:52] LABS: Glucose, Whole Blood 171 mg/dL (60-115)
[2022-02-18 14:53] LABS: Glucose, Whole Blood 204 mg/dL (60-115)
[2022-02-18 14:54] LABS: Glucose, Whole Blood 228 mg/dL (60-115)
[2022-02-18 14:54] LABS: Glucose, Whole Blood 289 mg/dL (60-115)
[2022-02-18 14:56] LABS: Glucose, Whole Blood 157 mg/dL (60-115)
[2022-02-18 14:57] LABS: Glucose, Whole Blood 179 mg/dL (60-115)
== END 2022-02-17 14:02 | disposition home or self-care (01) | DRG 872 ==
LOC: HO.ED 06:37 → HO.EDOVER 10:28 → HO.IMC 13:41
PROVIDERS: Internal Medicine Cardiovascular Disease; Admitting Provider Internal Medicine; Emergency Provider Emergency Medicine; PCP Internal Medicine; Visit Provider Hospitalist
PROC: (CPT 93312; principal; 2022-02-12 11:30)
DX: A40.8 Other streptococcal sepsis (principal); L03.116 Cellulitis of left lower limb; I13.0 Hypertensive heart and chronic kidney disease with heart failure and stage 1 through stage 4 chronic kidney disease, or unspecified chronic kidney disease; I48.19 Other persistent atrial fibrillation; N17.9 Acute kidney failure, unspecified; E87.2 Acidosis; M86.9 Osteomyelitis, unspecified; I25.10 Atherosclerotic heart disease of native coronary artery without angina pectoris; Z95.1 Presence of aortocoronary bypass graft; Z20.822 Contact with and (suspected) exposure to COVID-19; I50.812 Chronic right heart failure; E03.9 Hypothyroidism, unspecified; E78.5 Hyperlipidemia, unspecified; D69.6 Thrombocytopenia, unspecified; E11.65 Type 2 diabetes mellitus with hyperglycemia; E11.22 Type 2 diabetes mellitus with diabetic chronic kidney disease; N18.30 Chronic kidney disease, stage 3 unspecified; E11.621 Type 2 diabetes mellitus with foot ulcer; E11.69 Type 2 diabetes mellitus with other specified complication; L97.529 Non-pressure chronic ulcer of other part of left foot with unspecified severity; Z95.2 Presence of prosthetic heart valve; Z87.891 Personal history of nicotine dependence; Z88.2 Allergy status to sulfonamides; Z88.8 Allergy status to other drugs, medicaments and biological substances; Z79.4 Long term (current) use of insulin; Z79.01 Long term (current) use of anticoagulants; Z79.899 Other long term (current) drug therapy
CPT/HCPCS: 0241U; 36415; 36573; 71045; 73590; 73720; 80048; 80076; 80202; 81001; 82565; 82947; 83605; 83690; 83880; 84484; 85025; 85027; 87040; 87147; 87186; 87205; 87635; 93005; 93306; 93312; 93971; 96361; 96365; 96375; 99285; A9585; C1751; J0696; J1940; J2250; J2543; J3010; J3370

== ENCOUNTER 2022-03-04 15:52 | Outpatient (REF) | payer MEDICARE, SELFPAY ==
[2022-03-04 15:55] LABS: MANUAL DIFF FLAG NO
[2022-03-04 16:01] LABS: Basophils Absolute Auto 0.1 X10*3/uL (0.0-0.2); Basophils Percent Auto 1.1 % (0-2); Eosinophils Absolute Auto 0.5 X10*3/uL (0.0-0.4); Eosinophils Percent Auto 8.8 % (0-4); Hematocrit 31.7 % (42.0-52.0); Imm Gran Abs Auto 0.02 X10*3/uL (0.00-0.03); Imm Gran Pct Auto 0.4 % (0.0-0.4); Lymphocytes Absolute Auto 0.8 X10*3/uL (1.2-4.9); Lymphocytes Percent Auto 13.4 % (20-40); Mean Corpuscular HGB Conc 31.5 g/dl (31.0-36.0); Mean Corpuscular Hemoglobin 28.2 pg (27.0-33.0); Mean Corpuscular Volume 89.5 fL (80.0-98.0); Mean Platelet Volume 10.9 fL (9.4-12.4); Monocytes Absolute Auto 0.6 X10*3/uL (0.1-1.2); Monocytes Percent Auto 10.8 % (2-11); Neutrophils Absolute Auto 3.7 x10*3/uL (2.0-8.3); Neutrophils Percent Auto 65.5 % (45-73); Platelet Count 176 X10*3/uL (160-400); Red Blood Count 3.54 X10*6/uL (4.60-5.80); Red Cell Distribution Width 15.5 % (11.0-16.0); White Blood Count 5.6 X10*3/uL (4.8-10.8)
== END 2022-03-04 15:53 | disposition home or self-care (01) ==
LOC: HO.LNP 15:52
PROVIDERS: Visit Provider Internal Medicine
DX: D75.82 Heparin induced thrombocytopenia (HIT) (principal)
CPT/HCPCS: 85025

== ENCOUNTER → 2022-03-27 07:53 | Outpatient (BNVA) | payer MEDICARE, SELFPAY | PROVIDERS: PCP Internal Medicine; Referring Provider Internal Medicine; Visit Provider Internal Medicine | DX: I13.0 Hypertensive heart and chronic kidney disease with heart failure and stage 1 through stage 4 chronic kidney disease, or unspecified chronic kidney disease (principal); I50.812 Chronic right heart failure; N18.9 Chronic kidney disease, unspecified; I48.19 Other persistent atrial fibrillation; E11.8 Type 2 diabetes mellitus with unspecified complications; E78.5 Hyperlipidemia, unspecified; Z79.899 Other long term (current) drug therapy; Z95.3 Presence of xenogenic heart valve; Z95.1 Presence of aortocoronary bypass graft | CPT/HCPCS: 99212 ==

== ENCOUNTER → 2022-05-09 09:37 | Outpatient (BNVA) | payer MEDICARE, SELFPAY | PROVIDERS: PCP Internal Medicine; Visit Provider Surgery | DX: R91.1 Solitary pulmonary nodule (principal); Z79.4 Long term (current) use of insulin; Z79.899 Other long term (current) drug therapy | CPT/HCPCS: 99212 ==

== ENCOUNTER 2022-07-11 17:12 | Inpatient (IN) | payer MEDICARE, SELFPAY ==
--- NOTE | ~2022-07-11 | US_ITS ---
EXAMINATION: NONINVASIVE ASSESSMENT OF THE ARTERIES OF BOTH LOWER EXTREMITIES WITH PVR EXAM AND BILATERAL LOWER EXTREMITY DUPLEX Richard James MD CLINICAL INFORMATION: Nonhealing ulcer TECHNIQUE: Ankle pulse volume recordings, ankle pressure measurements and ankle brachial indices were obtained of the lower extremity arterial system bilaterally in addition to duplex Doppler techniques with wave form analysis and measurement of velocities in the common femoral, profunda femoral, superficial femoral, popliteal and tibial arteries. The study was performed only at rest. COMPARISON: None FINDINGS: AT REST: Right Le. The right ankle-brachial index is: 0.94 * >0.97-1.25 = normal - no significant arterial disease * 0.75-0.96 = mild peripheral arterial disease * 0.5-0.74 = moderate peripheral arterial disease * <0.50 = severe peripheral arterial disease 2. Right ankle pressure: Slightly decreased 3. Right ankle PVR waveform: Mildly blunted 4. Right direct duplex Doppler findings with velocities reported in cm per second: Common Femoral: 119 Profunda Femoris: 253 Proximal SFA: 119 Mid SFA: 165 Distal SFA: 105 Popliteal: 90 Tibial: 56 Multiphasic flow is noted throughout the right lower extremity extremity. Elevated velocity in the profunda femoris indicative of stenosis as is their mildly elevated velocity in the mid SFA. Left Le. The left ankle-brachial index is: 0.82 * >0.97-1.25 = normal - no significant arterial disease * 0.75-0.96 = mild peripheral arterial disease * 0.5-0.74 = moderate peripheral arterial disease * <0.50 = severe peripheral arterial disease 2. Left ankle pressure: Mildly decreased 3. Left ankle PVR waveform: Markedly rounded 4. Left direct duplex Doppler findings: Common Femoral: 127 Profunda Femoris: 137 Proximal SFA: 131 Mid SFA: 87 Distal SFA: 350 Popliteal: 130 Tibial: 70 Multiphasic flow is present to the level of the proximal SFA with stenosis and elevated velocities seen in the distal SFA with monophasic flow present from the mid SFA distally. US/US arterial duplex LE BI IMPRESSION: There is evidence of peripheral vascular disease bilaterally. Although ABIs are normal. Severely decreased, there is a severe distal stenosis in the left SFA with monophasic flow below that level.
--- NOTE | ~2022-07-11 | XR_ITS ---
EXAMINATION: XR FOOT, LEFT CLINICAL INFORMATION: Pain and swelling. Question of osteomyelitis. COMPARISON: MRI dated 02/07/2022 TECHNIQUE: AP, lateral, and oblique views of the left foot. FINDINGS: Previous resection of the fifth metatarsal and proximal aspect of the fifth proximal phalanx. Ulceration of the soft tissues lateral to the cuboid tiny radiodensities within the soft tissues of the represent debris within the wound. Cortical defects are seen along the lateral aspect of the fourth proximal metatarsal metaphysis the site of the previously seen sinus tract previously shown to be communicating with soft tissue abscess in this location. Chronic osteomyelitis of the fourth metatarsal considered. No worsening destructive osseous changes since the previous MRI, however. Post surgical changes involving the second and third metatarsal necks consisting of previous osteotomies. Degenerative changes of the second and third metatarsophalangeal joints. XR/XR foot LT min 3V IMPRESSION: Chronic wound/ulcer along the lateral midfoot overlying the cuboid and base of the fourth metatarsal. There our defects within the lateral aspect of the fourth metatarsal base as seen on the prior MRI, previously shown to be related to an abscess or sinus tract communicating with the fourth metatarsal. No increased osseous destructive changes since the previous MRI, however chronic osteomyelitis of the fourth metatarsal is certainly possible.
[2022-07-11 17:41] VITALS: BP 141/67; PULSE 85; RESP 18; TEMP 37.1; O2SAT 94; BMI 24.4
[2022-07-12 03:34] LABS: Appearance Urine Clear; Color Urine Yellow; Glucose Urine UA Negative (Negative); Leukocyte Esterase Urine Negative (Negative); Nitrite Urine Negative (Negative); PH 5.5 (5.0-9.0); UMIC TRIGGER UACC YES; Urine Blood Negative (Negative); Urine Ketones Negative (Negative); Urine Protein 100 (2+) mg/dL (Neg-Trace)
[2022-07-12 03:45] LABS: Bacteria Urine None Seen (None Seen); Hyaline Casts Urine 0-2 /LPF (0-2); RBC Urine 0-2 /HPF (0-2); Squamous Epithelial Cell Urine 0-2 /HPF (0-2); WBC Urine 0-5 /HPF (0-5)
[2022-07-12 04:00] LABS: COVID-19 Test Negative (Negative); IDNOW Serial# 55D5AD1C; Influenza A Negative (Negative); Influenza B2 Negative (Negative)
[2022-07-12 04:02] LABS: MANUAL DIFF FLAG NO
[2022-07-12 04:04] LABS: Basophils Absolute Auto 0.1 X10*3/uL (0.0-0.2); Basophils Percent Auto 0.5 % (0-2); Eosinophils Absolute Auto 0.2 X10*3/uL (0.0-0.4); Eosinophils Percent Auto 1.5 % (0-4); Hematocrit 33.9 % (42.0-52.0); Hemoglobin 10.8 g/dl (14.0-18.0); Imm Gran Abs Auto 0.03 X10*3/uL (0.00-0.03); Imm Gran Pct Auto 0.3 % (0.0-0.4); Lymphocytes Absolute Auto 0.8 X10*3/uL (1.2-4.9); Lymphocytes Percent Auto 7.7 % (20-40); Mean Corpuscular HGB Conc 31.9 g/dl (31.0-36.0); Mean Corpuscular Hemoglobin 28.8 pg (27.0-33.0); Mean Corpuscular Volume 90.4 fL (80.0-98.0); Mean Platelet Volume 9.9 fL (9.4-12.4); Monocytes Absolute Auto 0.7 X10*3/uL (0.1-1.2); Monocytes Percent Auto 7.3 % (2-11); Neutrophils Absolute Auto 8.2 x10*3/uL (2.0-8.3); Neutrophils Percent Auto 82.7 % (45-73); Platelet Count 155 X10*3/uL (160-400); Red Blood Count 3.75 X10*6/uL (4.60-5.80); Red Cell Distribution Width 14.5 % (11.0-16.0); White Blood Count 9.9 X10*3/uL (4.8-10.8)
[2022-07-12 04:10] VITALS: BP 140/64; PULSE 72; RESP 18; O2SAT 96
[2022-07-12 04:24] LABS: Lactic Acid 1.4 mmol/L (0.5-2.0)
[2022-07-12 04:30] LABS: Alanine Aminotransferase 14 U/L (0-40); Albumin Level 3.4 g/dL (3.5-5.0); Alkaline Phosphatase 129 U/L (39-117); Anion Gap 17 (12-20); Aspartate Amino Transferase 18 U/L (5-37); Bilirubin Direct 0.6 mg/dL (0.0-0.5); Bilirubin Total 1.2 mg/dL (0.0-1.0); Blood Urea Nitrogen 38 mg/dL (9-16); Calcium 8.7 mg/dL (8.4-10.2); Carbon Dioxide 22 mmol/L (22-29); Chloride 104 mmol/L (96-108); Creatinine Clr Calc Pharmacy 42.8; Estimated Glomerular Filt Rate 41; Glucose Random 148 mg/dL (60-115); Lipase 19 U/L (8-78); Potassium 4.3 mmol/L (3.3-5.1); Sodium 139 mmol/L (135-145); Total Protein 8.3 g/dL (6.5-8.0)
--- NOTE | 2022-07-12 05:52 | ED_ITS ---
HPI - General Adult General Chief complaint: General Medical Stated complaint: blood infection, swollen foot Time Seen by Provider: 07/12/22 04:40 Source: patient and family Mode of arrival: ambulatory History of Present Illness HPI narrative: 72-year-old male with history of diabetes and history of bacteremia with left foot ulcer which has steadily become worse despite [facility] [place]. Patient states that he began to feel ?weird? which is typically a sign that he has in her infection is blood. He states he has been feeling chills but denies any shortness of breath, chest pain/palpitations, abdominal pain. Related Data Home Medications Medication Instructions Recorded Confirmed atorvastatin 80 mg tablet 80 mg PO BEDTIME 07/18/20 05/09/22 insulin glargine 100 unit/mL (3 22 unit subcut DAILY 07/18/20 05/09/22 mL) subcutaneous pen levothyroxine 50 mcg tablet 50 mcg PO Q2D@0630 07/18/20 05/09/22 magnesium oxide 400 mg (241.3 mg 400 mg PO TID 07/18/20 05/09/22 magnesium) tablet insulin lispro 100 unit/mL See Protocol subcut QIDACHS 07/26/20 05/09/22 subcutaneous pen (Humalog KwikPen (U-100) Insulin) tamsulosin 0.4 mg capsule (Flomax) 0.4 mg PO DAILY@1700 07/26/20 05/09/22 omeprazole 20 mg capsule,delayed 20 mg PO BID@0630,1630 01/09/21 05/09/22 release blood sugar diagnostic #10 ea 02/01/21 05/09/22 blood-glucose meter #1 nelly 02/01/21 05/09/22 pen needle, diabetic 32 gauge x #50 nelly 02/01/21 05/09/22 docusate sodium 100 mg capsule 100 mg PO BID 02/07/22 05/09/22 (Stool Softener) metoprolol succinate 25 mg 25 mg PO BEDTIME 02/07/22 05/09/22 tablet,extended release 24 hr (Toprol XL) Previous Rx's Medication Instructions Recorded furosemide 40 mg tablet (Lasix) 40 mg PO DAILY #90 tabs 10/29/21 ezetimibe 10 mg tablet (Zetia) 10 mg PO BEDTIME #90 tabs 12/27/21 apixaban 5 mg tablet (Eliquis) 5 mg PO BID #60 tabs 01/22/22 lisinopril 10 mg tablet 10 mg PO DAILY #90 tabs 05/05/22 Allergies Allergy/AdvReac Type Severity Reaction Status Date / Time Heparin Analogues Allergy Severe HIT Verified 05/09/22 10:00 [HEPARIN ANALOGUES] acetaminophen [From TYLENOL] Allergy Unknown UNKNOWN Verified 05/09/22 10:00 insulin glargine Allergy Unknown [place]- Verified 05/09/22 10:00 diarrhea Sulfa (Sulfonamide Allergy Unknown HIVES Verified 05/09/22 10:00 Antibiotics) [SULFA (SULFONAMIDE ANTIBIOTICS)] Review of Systems Review of Systems: Pertinent positives and negatives as stated in HPI 10 point review of systems is otherwise negative. [facility] Past Medical History Source: nursing notes reviewed Medical History Atrial fibrillation Chronic kidney disease, unspecified Coronary artery disease Diabetic foot ulcer Endocarditis of aortic valve Essential hypertension Group C streptococcal infection Hemorrhage of gastrointestinal tract, unspecified History of hemodialysis HIT (heparin-induced thrombocytopenia) (~2018) Hyperlipidemia, unspecified Hypomagnesemia Hypothyroidism Persistent atrial fibrillation Pulmonary nodule Type 2 diabetes mellitus with unspecified complications Surgical History History of cardiac catheterization (~11/17/18) History of lung biopsy (~02/14/21) History of maze procedure Status post aortic valve replacement with bioprosthetic valve (~01/2019) Status post coronary artery bypass graft (~01/2019) Status post foot surgery Family History Family History Father Emphysema, unspecified Mother Cardiovascular disease Social History Social History Household Members: Spouse Housing: House Do you presently have visiting nurse or other home services: No Alcohol intake: never Patient Tobacco Use Status: Former Tobacco user Tobacco use type: Pipe Advance Directives: Yes Advance Directives on File: Yes Advance Directives Date on File: 06/27/20 service: No Current occupational status: retired Physical Exam ED Vital Signs: Vital Signs - 24 hr 07/11/22 17:41 07/12/22 04:10 Temperature 98.8 F Pulse Rate 85 72 Respiratory Rate 18 18 Blood Pressure 141/67 H 140/64 H Pulse Oximetry 94 96 Oxygen Delivery Method Room Air Room Air BMI result Body Mass Index 24.4 VITAL SIGNS: Reviewed. GENERAL: Well developed, well nourished, in no acute distress. HEAD: Normocephalic/atraumatic EYES: PERRLA, EOMI EARS: Ext canals without abnormality OROPHARYNX: no oral lesions noted, posterior pharynx clear NECK: Supple, no adenopathy LUNGS: Normal breath sounds. No adventitious sounds or accessory muscle use. SpO2<96> CARDIOVASCULAR: Regular rate and rhythm without noted murmurs, no JVD or lower extremity edema. ABDOMEN: Soft, non-tender, non-distended with bowel sounds. MUSCULOSKELETAL: No tenderness, deformities, or effusions noted on gross inspection. EXTREMITIES: No cyanosis, clubbing or edema; LEFT FOOT: Erythematous and swollen, especially involving the 2nd and 3rd toes, the dorsal and lateral side of the foot has large area of necrotic tissue with a foul odor. SKIN: Inspection of the skin reveals no rashes NEUROLOGIC: Alert and oriented x 4. Strength and sensation to light touch were grossly intact x 4. Course Course Course Narrative: 0530: 72-year-old male with history and clinical presentation most consistent with gangrene of the left foot and noted HUGO after review of all investigations. Blood cultures are pending, patient received antibiotics with a consultation to pharmacy for vanc dosing given HUGO, foot x-ray is pending. I discussed this case with the inpatient hospitalist who will communicate with the oncoming team. Medical Decision Making Lab Data Result diagrams: 07/12/22 03:58 07/12/22 03:58 Labs: Lab Results 07/11/22 07/12/22 07/12/22 Range/Units Unknown 03:00 03:00 WBC (4.8-10.8) X10*3/uL RBC (4.60-5.80) X10*6/uL Hgb (14.0-18.0) g/dl Hct (42.0-52.0) % MCV (80.0-98.0) fL MCH (27.0-33.0) pg MCHC (31.0-36.0) g/dl RDW (11.0-16.0) % Plt Count (160-400) X10*3/uL MPV (9.4-12.4) fL Immature Gran % (Auto) (0.0-0.4) % Neut % (Auto) (45-73) % Lymph % (Auto) (20-40) % [place] % (Auto) (2-11) % Eos % (Auto) (0-4) % Baso % (Auto) (0-2) % Lymph # (Auto) (1.2-4.9) X10*3/uL [place] # (Auto) (0.1-1.2) X10*3/uL Eos # (Auto) (0.0-0.4) X10*3/uL Baso # (Auto) (0.0-0.2) X10*3/uL Abs Immat Gran (auto) (0.00-0.03) X10*3/uL Absolute Neuts (auto) (2.0-8.3) x10*3/uL Absolute Nucleated RBC (0.0-0.012) X10*3/uL Nucleated RBC % (auto) (0.0-0.2) /100WBC Sodium (135-145) mmol/L Potassium (3.3-5.1) mmol/L Chloride (96-108) mmol/L Carbon Dioxide (22-29) mmol/L Anion Gap (12-20) BUN (9-16) mg/dL Creatinine (0.5-1.4) mg/dL Estim Creat Clear Calc Estimated GFR Random Glucose (60-115) mg/dL Lactic Acid (0.5-2.0) mmol/L Calcium (8.4-10.2) mg/dL Total Bilirubin (0.0-1.0) mg/dL Direct Bilirubin (0.0-0.5) mg/dL AST (5-37) U/L ALT (0-40) U/L Alkaline Phosphatase (39-117) U/L Total Protein (6.5-8.0) g/dL Albumin (3.5-5.0) g/dL Lipase (8-78) U/L Urine Color Yellow Urine Appearance Clear Urine pH 5.5 (5.0-9.0) Ur Specific [place] 1.020 (1.005-1.025) Urine Protein 100 (2+) H (Neg-Trace) mg/dL Urine Glucose (UA) Negative (Negative) mg/dL Urine Ketones Negative (Negative) mg/dL Urine Blood Negative (Negative) Urine Nitrite Negative (Negative) Ur Leukocyte Esterase Negative (Negative) Urine RBC 0-2 (0-2) /HPF Urine WBC 0-5 (0-5) /HPF Ur Squamous Epith Cells 0-2 (0-2) /HPF Urine Bacteria None Seen (None Seen) Hyaline Casts 0-2 (0-2) /LPF COVID-19 (DENG) Negative (Negative) COVID-19 Clin Com See Note Influenza Type A (EMY) Negative (Negative) Influenza Type B (EMY) Negative (Negative) Influenza A & B Note See Note 07/12/22 07/12/22 07/12/22 Range/Units 03:57 03:58 03:58 WBC 9.9 (4.8-10.8) X10*3/uL RBC 3.75 L (4.60-5.80) X10*6/uL Hgb 10.8 L (14.0-18.0) g/dl Hct 33.9 L (42.0-52.0) % MCV 90.4 (80.0-98.0) fL MCH 28.8 (27.0-33.0) pg MCHC 31.9 (31.0-36.0) g/dl RDW 14.5 (11.0-16.0) % Plt Count 155 L (160-400) X10*3/uL MPV 9.9 (9.4-12.4) fL Immature Gran % (Auto) 0.3 (0.0-0.4) % Neut % (Auto) 82.7 H (45-73) % Lymph % (Auto) 7.7 L (20-40) % [place] % (Auto) 7.3 (2-11) % Eos % (Auto) 1.5 (0-4) % Baso % (Auto) 0.5 (0-2) % Lymph # (Auto) 0.8 L (1.2-4.9) X10*3/uL [place] # (Auto) 0.7 (0.1-1.2) X10*3/uL Eos # (Auto) 0.2 (0.0-0.4) X10*3/uL Baso # (Auto) 0.1 (0.0-0.2) X10*3/uL Abs Immat Gran (auto) 0.03 (0.00-0.03) X10*3/uL Absolute Neuts (auto) 8.2 (2.0-8.3) x10*3/uL Absolute Nucleated RBC 0.000 (0.0-0.012) X10*3/uL Nucleated RBC % (auto) 0.0 (0.0-0.2) /100WBC Sodium 139 (135-145) mmol/L Potassium 4.3 (3.3-5.1) mmol/L Chloride 104 (96-108) mmol/L Carbon Dioxide 22 (22-29) mmol/L Anion Gap 17 (12-20) BUN 38 H D (9-16) mg/dL Creatinine 1.66 H (0.5-1.4) mg/dL Estim Creat Clear Calc 42.8 Estimated GFR 41 Random Glucose 148 H (60-115) mg/dL Lactic Acid 1.4 (0.5-2.0) mmol/L Calcium 8.7 D (8.4-10.2) mg/dL Total Bilirubin 1.2 H (0.0-1.0) mg/dL Direct Bilirubin 0.6 H (0.0-0.5) mg/dL AST 18 D (5-37) U/L ALT 14 (0-40) U/L Alkaline Phosphatase 129 H D (39-117) U/L Total Protein 8.3 H (6.5-8.0) g/dL Albumin 3.4 L (3.5-5.0) g/dL Lipase 19 (8-78) U/L Urine Color Urine Appearance Urine pH (5.0-9.0) Ur Specific [place] (1.005-1.025) Urine Protein (Neg-Trace) mg/dL Urine Glucose (UA) (Negative) mg/dL Urine Ketones (Negative) mg/dL Urine Blood (Negative) Urine Nitrite (Negative) Ur Leukocyte Esterase (Negative) Urine RBC (0-2) /HPF Urine WBC (0-5) /HPF Ur Squamous Epith Cells (0-2) /HPF Urine Bacteria (None Seen) Hyaline Casts (0-2) /LPF COVID-19 (DENG) (Negative) COVID-19 Clin Com Influenza Type A (EMY) (Negative) Influenza Type B (EMY) (Negative) Influenza A & B Note Critical Care Time Critical Care Time Critical Care Time: Yes Total Critical Care Time: 30 Attestation: I personally attest to this time spent taking care of the patient. Discharge Plan Discharge Clinical Impression: Gangrene of left foot, Non-healing wound Patient Disposition: Admitted As Inpatient Prescriptions: No Action insulin lispro [Humalog KwikPen Insulin] 100 unit/mL insulin pen See Protocol subcut QIDACHS Protocol: Insulin Correction Scale Less than or equal to 110 ---- Give (units): 0 111 to 150 Give (units): 0 151 to 200 Give (units): 2 201 to 250 Give (units): 4 251 to 300 Give (units): 6 301 to 350 Give (units): 8 Greater than 350 Give (units): 10 Call MD if Blood Glucose > : 350 tamsulosin [Flomax] 0.4 mg capsule 0.4 mg PO DAILY@1700 ezetimibe [Zetia] 10 mg tablet 10 mg PO BEDTIME Qty: 90 3RF Eliquis 5 mg tablet 5 mg PO BID Qty: 60 3RF lisinopril 10 mg tablet 10 mg PO DAILY Qty: 90 3RF docusate sodium [Stool Softener] 100 mg Capsule 100 mg PO BID metoprolol succinate [Toprol XL] 25 mg tablet extended release 24 hr 25 mg PO BEDTIME atorvastatin 80 mg tablet 80 mg PO BEDTIME levothyroxine 50 mcg tablet 50 mcg PO Q2D@0630 magnesium oxide 400 mg (241.3 mg magnesium) tablet 400 mg PO TID insulin glargine 100 unit/mL (3 mL) insulin pen 22 unit subcut DAILY (DME) blood sugar diagnostic Strip See Rx Instructions Not Applicable QID Qty: 10 Rx Instructions: As directed (DME) blood-glucose meter Kit See Rx Instructions .ROUTE QID Qty: 1 Rx Instructions: As directed (DME) pen needle, diabetic 32 gauge x 5/32 needle See Rx Instructions .ROUTE .MEDSUPPLY Qty: 50 Rx Instructions: As directed omeprazole 20 mg capsule,delayed release(DR/EC) 20 mg PO BID@0630,1630 furosemide [Lasix] 40 mg tablet 40 mg PO DAILY Qty: 90 3RF
[2022-07-12 06:00] VITALS: BP 138/67; PULSE 79; RESP 16; TEMP 36.7; O2SAT 97
[2022-07-12 06:05] LABS: C Reactive Protein 15.16 mg/dL (< or = 0.50)
[2022-07-12] MEDS: Piperacillin Sodium/Tazobactam 3.375 GM in 0.9 % Sodium Chloride 50 ML IV (06:17)
[2022-07-12] MEDS: 0.9 % Sodium Chloride 500 ML 999 ML IV (06:19)
[2022-07-12 06:27] LABS: B Type Natriuretic Peptide 434 pg/mL (<100)
[2022-07-12 06:36] LABS: Procalcitonin 0.18 ng/mL
[2022-07-12 06:39] LABS: INTERNATIONAL NORM RATIO 1.6 (0.9-1.1); Prothrombin Time 18.5 SEC (10.0-13.1)
[2022-07-12] MEDS: lisinopriL 10 MG TABLET PO (11:58)
[2022-07-12] MEDS: Insulin Glargine,Hum.rec.anlog 100 UNIT/ML 10 ML VIAL 18 UNIT SUBCUT (11:58)
[2022-07-12] MEDS: Docusate Sodium 100 MG CAPSULE PO (11:58)
[2022-07-12] MEDS: cefEPime HCl 2 GM in 0.9 % Sodium Chloride 50 ML IV ×2 (11:59→23:31)
[2022-07-12 12:02] VITALS: BP 162/79; PULSE 77; RESP 19; O2SAT 98
--- NOTE | 2022-07-12 12:18 | PM.IMHP ---
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 He has a history of recurrent bacteremia and states he wanted to be proactive. He states the wound on his right foot did heal fully over the summer but then recurred again 3 weeks ago. He has been following with [facility] and using Aquacel as well as Puracol plus. On arrival patient is hemodynamically stable. No leukocytosis. Stable normocytic anemia with H/H 10.8/33.9%. Creatinine 1.66, BUN 38 (baseline 1.09, 20 respectively). CRP 15.16, ESR pending. BNP baseline at 04:34. Procalcitonin 0.18. X-ray left foot showing chronic wound/ulcer along lateral midfoot with defects within the lateral aspect of the 4th metatarsal base it is seen on prior MRI related to abscess or sinus tract communicating with 4th metatarsal. No increased osseous destruction changes since prior MRI though chronic osteomyelitis of the 4th metatarsal is possible. Given empiric doses of Zosyn and vancomycin in the ED, blood cultures pending. <ARBEN Kellogg - Last Filed: 07/12/22 16:35> Review of Systems Review of Systems: General: No fevers, malaise, unintentional weight loss. +chills Cardiovascular: No chest pain, palpitations, or leg edema Respiratory: No shortness of breath, wheezing, cough GI: No abdominal pain, nausea, vomiting, diarrhea, constipation, melena, hematochezia : No dysuria, hematuria Neuro: No headaches, weakness, paresthesias Skin: No rashes or lesions. +chronic ulcer left foot <ARBEN Kellogg - Last Filed: 07/12/22 16:35> [facility] Medical History: Medical History Atrial fibrillation Chronic kidney disease, unspecified Coronary artery disease Diabetic foot ulcer Endocarditis of aortic valve Essential hypertension Group C streptococcal infection Hemorrhage of gastrointestinal tract, unspecified History of hemodialysis HIT (heparin-induced thrombocytopenia) (~2018) Hyperlipidemia, unspecified Hypomagnesemia Hypothyroidism Persistent atrial fibrillation Pulmonary nodule Type 2 diabetes mellitus with unspecified complications <ARBEN Kellogg - Last Filed: 07/12/22 16:35> Family History: Family History Father Emphysema, unspecified Mother Cardiovascular disease <ARBEN Kellogg - Last Filed: 07/12/22 16:35> Surgical History: Surgical History History of cardiac catheterization (~11/17/18) History of lung biopsy (~02/14/21) History of maze procedure Status post aortic valve replacement with bioprosthetic valve (~01/2019) Status post coronary artery bypass graft (~01/2019) Status post foot surgery <ARBEN Kellogg - Last Filed: 07/12/22 16:35> Social History: Social History Household Members: Spouse Housing: House Do you presently have visiting nurse or other home services: No Alcohol intake: never Patient Tobacco Use Status: Former Tobacco user Tobacco use type: Pipe Advance Directives: Yes Advance Directives on File: Yes Advance Directives Date on File: 06/27/20 service: No Current occupational status: retired <ARBEN Kellogg - Last Filed: 07/12/22 16:35> Meds Allergies/Adverse reactions: Allergies Allergy/AdvReac Type Severity Reaction Status Date / Time Heparin Analogues Allergy Severe HIT Verified 05/09/22 10:00 [HEPARIN ANALOGUES] acetaminophen [From TYLENOL] Allergy Unknown UNKNOWN Verified 05/09/22 10:00 insulin glargine Allergy Unknown Toujeo- Verified 05/09/22 10:00 diarrhea Sulfa (Sulfonamide Allergy Unknown HIVES Verified 05/09/22 10:00 Antibiotics) [SULFA (SULFONAMIDE ANTIBIOTICS)] <ARBEN Kellogg - Last Filed: 07/12/22 16:35> Active Medications: Current Medications Atorvastatin Calcium (Atorvastatin Calcium 80 Mg Tablet) 80 mg PO BEDTIME [facility] Docusate Sodium (Docusate Sodium 100 Mg Capsule) 100 mg PO DAILY PRN PRN Reason: Constipation Docusate Sodium (Docusate Sodium 100 Mg Capsule) 100 mg PO DAILY [facility] Last Admin: 07/12/22 11:58 Dose: 100 mg Ezetimibe (Ezetimibe 10 Mg Tablet) 10 mg PO BEDTIME [facility] Cefepime HCl 2 gm/ Sodium (Chloride) 50 mls @ 100 mls/hr IV Q12H [facility] Last Admin: 07/12/22 11:59 Dose: 100 mls/hr Vancomycin HCl 1,000 mg/ (Sodium Chloride) 270 mls @ 270 mls/hr IV Q24H [facility] Insulin Glargine (Insulin Glargine,Hum.Rec.Anlog 100 Unit/Ml 10 Ml Vial) 18 unit SUBCUT DAILY [facility] Last Admin: 07/12/22 11:58 Dose: 18 unit Lisinopril (Lisinopril 10 Mg Tablet) 10 mg PO DAILY [facility]; Protocol Last Admin: 07/12/22 11:58 Dose: 10 mg Magnesium Oxide (Magnesium Oxide 400 Mg Tablet) 400 mg PO TID [facility] Metoprolol Succinate (Metoprolol Succinate Er 25 Mg Tab.Er.24h) 25 mg PO BEDTIME [facility]; Protocol Omeprazole (Omeprazole 20 Mg Capsule.Dr) 20 mg PO BID@0630,1630 [facility] Ondansetron HCl (Ondansetron Hcl 4 Mg/2 Ml Vial) 4 mg IVPUSH Q8H PRN PRN Reason: Nausea and Vomiting Pharmacy Consult (Consult Rx Perform Med Rec) 1 each MISCELLANE ONCE PRN PRN Reason: Consult order Pharmacy Consult (Consult Rx Vancomycin Dosing) 1 each MISCELLANE DAILY PRN PRN Reason: Consult order Sodium Chloride (0.9 % Sodium Chloride Flush 3 Ml Syringe) 3 ml IVFLUSH QSHIFT [facility] Tamsulosin HCl (Tamsulosin Hcl 0.4 Mg Capsule) 0.4 mg PO DAILY@1700 [facility] <ARBEN Kellogg - Last Filed: 07/12/22 16:35> Home medications: Home Medications Medication Instructions Recorded Confirmed Last Taken Type atorvastatin 80 mg tablet 80 mg PO BEDTIME 07/18/20 07/12/22 07/11/22 History insulin glargine 100 unit/mL (3 25 unit subcut DAILY 07/18/20 07/12/22 07/11/22 History mL) subcutaneous pen magnesium oxide 400 mg (241.3 mg 400 mg PO TID 07/18/20 07/12/22 07/11/22 History magnesium) tablet insulin lispro 100 unit/mL See Protocol subcut QIDACHS 07/26/20 07/12/22 07/11/22 History subcutaneous pen (Humalog KwikPen (U-100) Insulin) tamsulosin 0.4 mg capsule (Flomax) 0.4 mg PO DAILY@1700 07/26/20 07/12/22 07/11/22 History omeprazole 20 mg capsule,delayed 20 mg PO BID@0630,1630 01/09/21 07/12/22 07/11/22 History release blood sugar diagnostic #10 ea 02/01/21 05/09/22 07/11/22 History blood-glucose meter #1 ea 02/01/21 05/09/22 07/11/22 History pen needle, diabetic 32 gauge x #50 ea 02/01/21 05/09/22 07/11/22 History docusate sodium 100 mg capsule 100 mg PO DAILY 02/07/22 07/12/22 07/11/22 History (Stool Softener) metoprolol succinate 25 mg 25 mg PO BEDTIME 02/07/22 07/12/22 07/11/22 History tablet,extended release 24 hr (Toprol XL) Lactobacillus acidophilus 10 10,000 mmu cells PO BID 07/12/22 07/12/22 Unknown History billion cell capsule (Probiotic) <ARBEN Kellogg - Last Filed: 07/12/22 16:35> Physical Exam Vital Signs and Narrative: Vital Signs: Last Vital Signs Temp 98.0 F 07/12/22 06:00 Pulse 77 07/12/22 12:02 Resp 19 07/12/22 12:02 BP 162/79 H 07/12/22 12:02 Pulse Ox 98 10/22/22 12:02 O2 Del Method 07/12/22 06:00 BMI result Body Mass Index 24.4 <ARBEN Kellogg - Last Filed: 07/12/22 16:35> Constitutional - Awake and Alert, No apparent distress Eyes - PERRLA, EOMI Cardiovascular - S1S2, RRR, 1+ ble edema Respiratory - Normal lung expansion, Normal respiratory effort, No respiratory distress, CTA bilaterally Gastrointestinal - NT / ND; +BS; No rebound or guarding Extremities - no calf tenderness bilaterally, no swelling Musculoskeletal - Normal inspection, normal ROM Skin - Warm/Dry. Venous stasis dermatitis BLE. Malodorous necrotic ulceration of the left lateral foot. See photo Neurological - Alert & oriented x3, 5/5 strength BUE and BLE. CN II-XII in tact Psychological - Appropriate affect <ARBEN Kellogg - Last Filed: 07/12/22 16:35> Results Labs CBC and Chem 7: : 07/12/22 03:58 07/12/22 03:58 <ARBEN Kellogg - Last Filed: 07/12/22 16:35> Labs: Laboratory Results - last 24 hr 07/11/22 07/12/22 07/12/22 Unknown 03:00 03:00 MCV MCH MCHC RDW Plt Count MPV Immature Gran % (Auto) Neut % (Auto) Lymph % (Auto) Starr % (Auto) Eos % (Auto) Baso % (Auto) Lymph # (Auto) Starr # (Auto) Eos # (Auto) Baso # (Auto) Abs Immat Gran (auto) Absolute Neuts (auto) Absolute Nucleated RBC Nucleated RBC % (auto) PT INR Anion Gap Estim Creat Clear Calc Estimated GFR Random Glucose Lactic Acid Calcium Total Bilirubin Direct Bilirubin AST ALT Alkaline Phosphatase C-Reactive Protein B-Natriuretic Peptide Total Protein Albumin Lipase Procalcitonin Urine Color Yellow Urine Appearance Clear Urine pH 5.5 Ur Specific North 1.020 Urine Protein 100 (2+) H Urine Glucose (UA) Negative Urine Ketones Negative Urine Blood Negative Urine Nitrite Negative Ur Leukocyte Esterase Negative Urine RBC 0-2 Urine WBC 0-5 Ur Squamous Epith Cells 0-2 Urine Bacteria None Seen Hyaline Casts 0-2 COVID-19 (DENG) Negative COVID-19 Clin Com See Note Influenza Type A (EMY) Negative Influenza Type B (EMY) Negative Influenza A & B Note See Note 07/12/22 07/12/22 07/12/22 03:57 03:58 03:58 MCV 90.4 MCH 28.8 MCHC 31.9 RDW 14.5 Plt Count 155 L MPV 9.9 Immature Gran % (Auto) 0.3 Neut % (Auto) 82.7 H Lymph % (Auto) 7.7 L Starr % (Auto) 7.3 Eos % (Auto) 1.5 Baso % (Auto) 0.5 Lymph # (Auto) 0.8 L Starr # (Auto) 0.7 Eos # (Auto) 0.2 Baso # (Auto) 0.1 Abs Immat Gran (auto) 0.03 Absolute Neuts (auto) 8.2 Absolute Nucleated RBC 0.000 Nucleated RBC % (auto) 0.0 PT INR Anion Gap 17 Estim Creat Clear Calc 42.8 Estimated GFR 41 Random Glucose 148 H Lactic Acid 1.4 Calcium 8.7 D Total Bilirubin 1.2 H Direct Bilirubin 0.6 H AST 18 D ALT 14 Alkaline Phosphatase 129 H D C-Reactive Protein 15.16 H B-Natriuretic Peptide Total Protein 8.3 H Albumin 3.4 L Lipase 19 Procalcitonin Urine Color Urine Appearance Urine pH Ur Specific North Urine Protein Urine Glucose (UA) Urine Ketones Urine Blood Urine Nitrite Ur Leukocyte Esterase Urine RBC Urine WBC Ur Squamous Epith Cells Urine Bacteria Hyaline Casts COVID-19 (DENG) COVID-19 Clin Com Influenza Type A (EMY) Influenza Type B (EMY) Influenza A & B Note 07/12/22 07/12/22 07/12/22 03:58 03:58 06:02 MCV MCH MCHC RDW Plt Count MPV Immature Gran % (Auto) Neut % (Auto) Lymph % (Auto) Starr % (Auto) Eos % (Auto) Baso % (Auto) Lymph # (Auto) Starr # (Auto) Eos # (Auto) Baso # (Auto) Abs Immat Gran (auto) Absolute Neuts (auto) Absolute Nucleated RBC Nucleated RBC % (auto) PT 18.5 H INR 1.6 H Anion Gap Estim Creat Clear Calc Estimated GFR Random Glucose Lactic Acid Calcium Total Bilirubin Direct Bilirubin AST ALT Alkaline Phosphatase C-Reactive Protein B-Natriuretic Peptide 434 H Total Protein Albumin Lipase Procalcitonin 0.18 Urine Color Urine Appearance Urine pH Ur Specific North Urine Protein Urine Glucose (UA) Urine Ketones Urine Blood Urine Nitrite Ur Leukocyte Esterase Urine RBC Urine WBC Ur Squamous Epith Cells Urine Bacteria Hyaline Casts COVID-19 (DENG) COVID-19 Clin Com Influenza Type A (EMY) Influenza Type B (EMY) Influenza A & B Note <ARBEN Kellogg - Last Filed: 07/12/22 16:35> Imaging Radiologist's Impressions: Impressions Foot X-Ray 07/12/22 06:01 IMPRESSION: Chronic wound/ulcer along the lateral midfoot overlying the cuboid and base of the fourth metatarsal. There our defects within the lateral aspect of the fourth metatarsal base as seen on the prior MRI, previously shown to be related to an abscess or sinus tract communicating with the fourth metatarsal. No increased osseous destructive changes since the previous MRI, however chronic osteomyelitis of the fourth metatarsal is certainly possible. 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 #Chronic foot ulcer related to type 2 diabetes with cellulitis -Necrosis and possible gangrene present -XRay without acute osteo, possible chronic osteo, but showing abscess and sinus tracking -General surgery consulted -No leukocytosis, lactic acid normal. Hemodynamically stable -IV vanco and cefepime -blood cultures pending # chronic osteomyelitis -treated with 6 weeks IV ceftriaxone and 01/2022 4 osteomyelitis -x-ray does not show any acute osteomyelitis but does show chronic osteo -IV vanco and cefepime as above -blood cultures pending -ID consult placed # HUGO with baseline CKD stage III- likely secondary to dehydration -creatinine 1.66, BUN 38 -gentle IVF with lactated Ringer's -follow BMP # persistent atrial fibrillation-rate controlled -continue Eliquis -continue metoprolol for rate # insulin-dependent type 2 diabetes -POC glucose -diabetic diet -dose adjusted insulin glargine -hemoglobin sliding scale -continue Jardiance # HLD -continue statin # history of endocarditis with mechanical AVR -continue Eliquis # hypertension controlled -continue furosemide and metoprolol #Right-sided HFpEF- euvolemic -BNP baseline -Continue lasix -Gentle IVF for HUGO DVT prophylaxis-on apixaban Full code Patient requires inpatient stay of at least 2 midnights due to diabetic foot infection with necrosis requiring IV antibiotics and debridement as well as HUGO requiring IVF <ARBEN Kellogg - Last Filed: 07/12/22 16:35> Quality Stroke Does the patient have a stroke diagnosis?: No <Alexandra Malave MD - Last Filed: 07/12/22 15:49> VTE Prior VTE?: No <Alexandra Malave MD - Last Filed: 07/12/22 15:49> VTE Risk Level:: Medical - moderate - high <ARBEN Kellogg - Last Filed: 07/12/22 16:35> VTE Device Contraindication: Treatment Not Indicated <ARBEN Kellogg - Last Filed: 07/12/22 16:35> VTE Drug Contraindication: N/A - Med Ordered <ARBEN Kellogg - Last Filed: 07/12/22 16:35>
[2022-07-12] MEDS: Lactated Ringers 1,000 ML 50 ML IVCONT (13:17)
[2022-07-12 13:39] LABS: Erythrocyte Sedimentation Rate 94 MM/HR (0-15)
--- NOTE | 2022-07-12 14:52 | P.CONGS_ITS ---
History of Present Illness Consult details Consult date: 07/12/22 Requesting physician: Kathy Aiken Narrative: 72 year old male patient with diabetes mellitus and a previous history of a left diabetic associated left foot ulcer presenting now with a new ulcer and abscess of the lateral left foot. He denies any recent foot trauma but noted a previous scab which pulled off and gradualling increased in swelling and redness, especially over the last several days. He has a history of aortic valve endocarditis and previously underwent AVR bioprosthetic.? Work up in the ED included a WBC of 9.9. A left foot x-ray revealed: Chronic wound/ulcer along the lateral midfoot overlying the cuboid and base of the fourth metatarsal. There our (sic) defects within the lateral aspect of the fourth metatarsal base as seen on the prior MRI, previously shown to be related to an abscess or sinus tract communicating with the fourth metatarsal. No increased osseous destructive changes since the previous MRI, however chronic osteomyelitis of the fourth metatarsal is certainly possible. Surgical consultation was requested for treatment of the left foot abscess Review of Systems Review of Systems: Yes all other systems are reviewed and are negative PMFSH Past Medical History Medical History Atrial fibrillation Chronic kidney disease, unspecified Coronary artery disease Diabetic foot ulcer Endocarditis of aortic valve Essential hypertension Group C streptococcal infection Hemorrhage of gastrointestinal tract, unspecified History of hemodialysis HIT (heparin-induced thrombocytopenia) (~2018) Hyperlipidemia, unspecified Hypomagnesemia Hypothyroidism Persistent atrial fibrillation Pulmonary nodule Type 2 diabetes mellitus with unspecified complications Family History Family History Father Emphysema, unspecified Mother Cardiovascular disease Surgical History Surgical History History of cardiac catheterization (~11/17/18) History of lung biopsy (~02/14/21) History of maze procedure Status post aortic valve replacement with bioprosthetic valve (~01/2019) Status post coronary artery bypass graft (~01/2019) Status post foot surgery Social History Social History Household Members: Spouse Housing: House Do you presently have visiting nurse or other home services: No Alcohol intake: never Patient Tobacco Use Status: Former Tobacco user Tobacco use type: Pipe Advance Directives: Yes Advance Directives on File: Yes Advance Directives Date on File: 06/27/20 service: No Current occupational status: retired Meds Allergies Allergy/AdvReac Type Severity Reaction Status Date / Time Heparin Analogues Allergy Severe HIT Verified 05/09/22 10:00 [HEPARIN ANALOGUES] acetaminophen [From TYLENOL] Allergy Unknown UNKNOWN Verified 05/09/22 10:00 insulin glargine Allergy Unknown Toujeo- Verified 05/09/22 10:00 diarrhea Sulfa (Sulfonamide Allergy Unknown HIVES Verified 05/09/22 10:00 Antibiotics) [SULFA (SULFONAMIDE ANTIBIOTICS)] Active Medications: Current Medications Atorvastatin Calcium (Atorvastatin Calcium 80 Mg Tablet) 80 mg PO BEDTIME [facility] Docusate Sodium (Docusate Sodium 100 Mg Capsule) 100 mg PO DAILY PRN PRN Reason: Constipation Docusate Sodium (Docusate Sodium 100 Mg Capsule) 100 mg PO DAILY [facility] Last Admin: 07/12/22 11:58 Dose: 100 mg Ezetimibe (Ezetimibe 10 Mg Tablet) 10 mg PO BEDTIME [facility] Cefepime HCl 2 gm/ Sodium (Chloride) 50 mls @ 100 mls/hr IV Q12H [facility] Last Infusion: 07/12/22 13:40 Dose: Infused Vancomycin HCl 1,000 mg/ (Sodium Chloride) 270 mls @ 270 mls/hr IV Q24H [facility] Lactated Ringer's (Lr) 1,000 mls @ 50 mls/hr IVCONT .Q20H [facility] Last Infusion: 07/12/22 13:41 Dose: 50 mls/hr Insulin Glargine (Insulin Glargine,Hum.Rec.Anlog 100 Unit/Ml 10 Ml Vial) 18 unit SUBCUT DAILY [facility] Last Admin: 07/12/22 11:58 Dose: 18 unit Lisinopril (Lisinopril 10 Mg Tablet) 10 mg PO DAILY [facility]; Protocol Last Admin: 07/12/22 11:58 Dose: 10 mg Magnesium Oxide (Magnesium Oxide 400 Mg Tablet) 400 mg PO TID [facility] Metoprolol Succinate (Metoprolol Succinate Er 25 Mg Tab.Er.24h) 25 mg PO BEDTIME [facility]; Protocol Omeprazole (Omeprazole 20 Mg Capsule.Dr) 20 mg PO BID@0630,1630 [facility] Ondansetron HCl (Ondansetron Hcl 4 Mg/2 Ml Vial) 4 mg IVPUSH Q8H PRN PRN Reason: Nausea and Vomiting Pharmacy Consult (Consult Rx Perform Med Rec) 1 each MISCELLANE ONCE PRN PRN Reason: Consult order Pharmacy Consult (Consult Rx Vancomycin Dosing) 1 each MISCELLANE DAILY PRN PRN Reason: Consult order Sodium Chloride (0.9 % Sodium Chloride Flush 3 Ml Syringe) 3 ml IVFLUSH QSHIFT [facility] Tamsulosin HCl (Tamsulosin Hcl 0.4 Mg Capsule) 0.4 mg PO DAILY@1700 [facility] Home Medications Medication Instructions Recorded Confirmed Last Taken Type atorvastatin 80 mg tablet 80 mg PO BEDTIME 07/18/20 07/12/22 07/11/22 History insulin glargine 100 unit/mL (3 25 unit subcut DAILY 07/18/20 07/12/22 07/11/22 History mL) subcutaneous pen magnesium oxide 400 mg (241.3 mg 400 mg PO TID 07/18/20 07/12/22 07/11/22 History magnesium) tablet insulin lispro 100 unit/mL See Protocol subcut QIDACHS 07/26/20 07/12/22 07/11/22 History subcutaneous pen (Humalog KwikPen (U-100) Insulin) tamsulosin 0.4 mg capsule (Flomax) 0.4 mg PO DAILY@1700 07/26/20 07/12/22 07/11/22 History omeprazole 20 mg capsule,delayed 20 mg PO BID@0630,1630 01/09/21 07/12/22 07/11/22 History release blood sugar diagnostic #10 ea 02/01/21 05/09/22 07/11/22 History blood-glucose meter #1 ea 02/01/21 05/09/22 07/11/22 History pen needle, diabetic 32 gauge x #50 ea 02/01/21 05/09/22 07/11/22 History docusate sodium 100 mg capsule 100 mg PO DAILY 02/07/22 07/12/22 07/11/22 History (Stool Softener) metoprolol succinate 25 mg 25 mg PO BEDTIME 02/07/22 07/12/22 07/11/22 History tablet,extended release 24 hr (Toprol XL) Lactobacillus acidophilus 10 10,000 mmu cells PO BID 07/12/22 07/12/22 Unknown History billion cell capsule (Probiotic) Physical Exam Vital Signs: Vital Signs: Last Vital Signs Temp 98.0 F 07/12/22 06:00 Pulse 77 07/12/22 12:02 Resp 19 07/12/22 12:02 BP 162/79 H 07/12/22 12:02 Pulse Ox 98 07/12/22 12:02 O2 Del Method 07/12/22 06:00 BMI result Body Mass Index 24.4 Const: General: comfortable and no acute distress Nutritional Appearance: well nourished Orientation/consciousness: patient oriented x3 Limitations: no limitations Resp: Effort & Inspection: normal respiratory effort, no respiratory distress, no stridor and not tachypneic GI: Inspection: Yes normal to inspection Skin: General skin exam: no rashes or lesions noted Neuro: General: patient oriented x3 Extrem: Other: left lateral foot with necrotic skin changes, with ulceration opening into a subcutaneous pocket consistent with an abscess cavity. The abscess is now completely drained but the overlying necrotic skin will need debridement. Results Labs Result diagrams: 07/12/22 03:58 07/12/22 03:58 Labs: Abnormal lab results 07/11/22 07/12/22 07/12/22 Range/Units Unknown 03:58 03:58 RBC 3.75 L (4.60-5.80) X10*6/uL Hgb 10.8 L (14.0-18.0) g/dl Hct 33.9 L (42.0-52.0) % Plt Count 155 L (160-400) X10*3/uL Neut % (Auto) 82.7 H (45-73) % Lymph % (Auto) 7.7 L (20-40) % Lymph # (Auto) 0.8 L (1.2-4.9) X10*3/uL ESR (0-15) MM/HR PT (10.0-13.1) SEC INR (0.9-1.1) BUN 38 H D (9-16) mg/dL Creatinine 1.66 H (0.5-1.4) mg/dL Random Glucose 148 H (60-115) mg/dL Total Bilirubin 1.2 H (0.0-1.0) mg/dL Direct Bilirubin 0.6 H (0.0-0.5) mg/dL Alkaline Phosphatase 129 H D (39-117) U/L C-Reactive Protein 15.16 H (< or = 0.50) mg/dL B-Natriuretic Peptide (<100) pg/mL Total Protein 8.3 H (6.5-8.0) g/dL Albumin 3.4 L (3.5-5.0) g/dL Urine Protein 100 (2+) H (Neg-Trace) mg/dL 07/12/22 07/12/22 07/12/22 Range/Units 03:58 06:02 12:53 RBC (4.60-5.80) X10*6/uL Hgb (14.0-18.0) g/dl Hct (42.0-52.0) % Plt Count (160-400) X10*3/uL Neut % (Auto) (45-73) % Lymph % (Auto) (20-40) % Lymph # (Auto) (1.2-4.9) X10*3/uL ESR 94 H (0-15) MM/HR PT 18.5 H (10.0-13.1) SEC INR 1.6 H (0.9-1.1) BUN (9-16) mg/dL Creatinine (0.5-1.4) mg/dL Random Glucose (60-115) mg/dL Total Bilirubin (0.0-1.0) mg/dL Direct Bilirubin (0.0-0.5) mg/dL Alkaline Phosphatase (39-117) U/L C-Reactive Protein (< or = 0.50) mg/dL B-Natriuretic Peptide 434 H (<100) pg/mL Total Protein (6.5-8.0) g/dL Albumin (3.5-5.0) g/dL Urine Protein (Neg-Trace) mg/dL Short CBC 07/12/22 Range/Units 03:58 WBC 9.9 (4.8-10.8) X10*3/uL Hgb 10.8 L (14.0-18.0) g/dl Hct 33.9 L (42.0-52.0) % Plt Count 155 L (160-400) X10*3/uL BMP 07/12/22 03:58 Sodium 139 Potassium 4.3 Chloride 104 Carbon Dioxide 22 BUN 38 H D Creatinine 1.66 H Calcium 8.7 D Liver Function 07/12/22 Range/Units 03:58 Total Bilirubin 1.2 H (0.0-1.0) mg/dL Direct Bilirubin 0.6 H (0.0-0.5) mg/dL AST 18 D (5-37) U/L ALT 14 (0-40) U/L Alkaline Phosphatase 129 H D (39-117) U/L Albumin 3.4 L (3.5-5.0) g/dL Urine 07/11/22 Range/Units Unknown Urine Color Yellow Urine Appearance Clear Urine pH 5.5 (5.0-9.0) Ur Specific Flasher 1.020 (1.005-1.025) Urine Protein 100 (2+) H (Neg-Trace) mg/dL Urine Glucose (UA) Negative (Negative) mg/dL All other labs normal. Assessment and Plan (1) Gangrene of left foot: Status: Acute (2) Diabetic foot ulcer: Status: Acute (3) Non-healing wound: Status: Acute Plan 72 year old male patient with a prior history of a left foot diabetic ulcer now presenting with a recurrent ulcer. He will need debridement of the abscess cavity which I will perform at the bedside tomorrow. He will also need a vascular workup and would benefit from non-invasive vascular studies during this hospitalization +/- vascular surgery consultation based on the results. Procedures Date of Service Date of Service: 07/12/22
[2022-07-12] MEDS: Omeprazole 20 MG CAPSULE.DR PO (15:20)
[2022-07-12] MEDS: Magnesium Oxide 400 MG TABLET PO ×2 (15:20→19:36)
[2022-07-12] MEDS: 0.9 % Sodium Chloride Flush 3 ML SYRINGE IVFLUSH ×2 (15:21→19:36)
[2022-07-12 16:16] VITALS: BP 129/61; PULSE 85; RESP 18; O2SAT 98
[2022-07-12] MEDS: Tamsulosin HCL 0.4 MG CAPSULE PO (16:47)
--- NOTE | 2022-07-12 17:37 | PC.NURSE ---
pt reports no pain present at this time, resting comfortably on stretcher
[2022-07-12 19:23] VITALS: BP 125/60; PULSE 88; RESP 18; TEMP 37.2; O2SAT 95
[2022-07-12] MEDS: Metoprolol Succinate ER 25 MG TAB.ER.24H PO (19:36)
[2022-07-12] MEDS: Ezetimibe 10 MG TABLET PO (19:36)
[2022-07-12] MEDS: Atorvastatin Calcium 80 MG TABLET PO (19:36)
[2022-07-13] VITALS: BP 121/56; PULSE 81; RESP 17; TEMP 36.8; O2SAT 93
[2022-07-13 03:23] VITALS: BP 115/57; PULSE 68; RESP 16; TEMP 36.9; O2SAT 94
[2022-07-13 06:32] LABS: Anion Gap 15 (12-20); Blood Urea Nitrogen 33 mg/dL (9-16); Calcium 8.1 mg/dL (8.4-10.2); Carbon Dioxide 21 mmol/L (22-29); Chloride 106 mmol/L (96-108); Creatinine Clr Calc Pharmacy 47.7; Estimated Glomerular Filt Rate 46; Glucose Random 159 mg/dL (60-115); Potassium 4.2 mmol/L (3.3-5.1); Sodium 138 mmol/L (135-145)
[2022-07-13 07:54] VITALS: BP 117/57; PULSE 71; RESP 18; TEMP 36.8; O2SAT 95
[2022-07-13] MEDS: vancomycin HCL 1,000 MG in 0.9 % Sodium Chloride 250 ML 270 MG IV (08:01)
[2022-07-13] MEDS: Insulin Glargine,Hum.rec.anlog 100 UNIT/ML 10 ML VIAL 18 UNIT SUBCUT (08:02)
[2022-07-13] MEDS: Magnesium Oxide 400 MG TABLET PO ×3 (08:03→21:14)
[2022-07-13] MEDS: Docusate Sodium 100 MG CAPSULE PO (08:03)
[2022-07-13] MEDS: lisinopriL 10 MG TABLET PO (08:03)
--- NOTE | 2022-07-13 09:42 | PM.PNGS ---
Subjective Subjective Date of Service: 07/13/22 Interval history: Mr. Sood denies any new foot symptoms this morning. Physical Exam Vital Signs: Vital Signs: Last Vital Signs Temp 98.3 F 07/13/22 07:54 Pulse 71 07/13/22 07:54 Resp 18 07/13/22 07:54 BP 117/57 L 07/13/22 07:54 Pulse Ox 95 07/13/22 07:54 O2 Del Method 07/13/22 07:54 BMI result Body Mass Index 24.4 Const: General: comfortable and no acute distress Nutritional Appearance: well nourished Orientation/consciousness: patient oriented x3 Limitations: no limitations Resp: Effort & Inspection: normal respiratory effort Skin: Other: Warm, dry, no rash Neuro: General: patient oriented x3 Extrem: Other: Area of necrotic skin in the lateral left foot measuring approximately 4 x 5 cm was debrided using a scalpel and forceps including skin and subcutaneous tissue down to viable/bleeding tissue. No exposed metatarsal could be identified. No undrained abscess was identified. A small amount of purulent discharge was noted within this space. Wound was covered with silver alginate followed by fluffed gauze and Kerlix. Will monitor the wound and debride as necessary. Ankle/foot/toe images: 1. Site of ulceration 2. Site of ulceration Objective Data Active Medications Atorvastatin Calcium (Atorvastatin Calcium 80 Mg Tablet) 80 mg PO BEDTIME [facility] Last Admin: 07/12/22 19:36 Dose: 80 mg Documented By: SMILEY Docusate Sodium (Docusate Sodium 100 Mg Capsule) 100 mg PO DAILY PRN PRN Reason: Constipation Docusate Sodium (Docusate Sodium 100 Mg Capsule) 100 mg PO DAILY [facility] Last Admin: 07/13/22 08:03 Dose: 100 mg Documented By: GAVINO Ezetimibe (Ezetimibe 10 Mg Tablet) 10 mg PO BEDTIME [facility] Last Admin: 07/12/22 19:36 Dose: 10 mg Documented By: SMILEY Cefepime HCl 2 gm/ Sodium (Chloride) 50 mls @ 100 mls/hr IV Q12H [facility] Last Infusion: 07/13/22 00:02 Dose: 0 mls/hr Documented By: SMILEY Vancomycin HCl 1,000 mg/ (Sodium Chloride) 270 mls @ 270 mls/hr IV Q24H [facility] Last Infusion: 07/13/22 09:06 Dose: 0 mls/hr Documented By: GAVINO Lactated Ringer's (Lr) 1,000 mls @ 50 mls/hr IVCONT .Q20H [facility] Last Infusion: 07/12/22 13:41 Dose: 50 mls/hr Documented By: COLIN Insulin Glargine (Insulin Glargine,Hum.Rec.Anlog 100 Unit/Ml 10 Ml Vial) 18 unit SUBCUT DAILY [facility] Last Admin: 07/13/22 08:02 Dose: 18 unit Documented By: GAVINO Lisinopril (Lisinopril 10 Mg Tablet) 10 mg PO DAILY [facility]; Protocol Last Admin: 07/13/22 08:03 Dose: 10 mg Documented By: GAVINO Magnesium Oxide (Magnesium Oxide 400 Mg Tablet) 400 mg PO TID [facility] Last Admin: 07/13/22 08:03 Dose: 400 mg Documented By: GAVINO Metoprolol Succinate (Metoprolol Succinate Er 25 Mg Tab.Er.24h) 25 mg PO BEDTIME [facility]; Protocol Last Admin: 07/12/22 19:36 Dose: 25 mg Documented By: SMILEY Omeprazole (Omeprazole 20 Mg Capsule.Dr) 20 mg PO BID@0630,1630 [facility] Last Admin: 07/13/22 05:33 Dose: Not Given Documented By: SMILEY Non-Admin Reason: NPO Ondansetron HCl (Ondansetron Hcl 4 Mg/2 Ml Vial) 4 mg IVPUSH Q8H PRN PRN Reason: Nausea and Vomiting Pharmacy Consult (Consult Rx Perform Med Rec) 1 each MISCELLANE ONCE PRN PRN Reason: Consult order Pharmacy Consult (Consult Rx Vancomycin Dosing) 1 each MISCELLANE DAILY PRN PRN Reason: Consult order Sodium Chloride (0.9 % Sodium Chloride Flush 3 Ml Syringe) 3 ml IVFLUSH QSHIFT [facility] Last Admin: 07/13/22 08:04 Dose: Not Given Documented By: GAVINO Non-Admin Reason: IV Running Tamsulosin HCl (Tamsulosin Hcl 0.4 Mg Capsule) 0.4 mg PO DAILY@1700 [facility] Last Admin: 07/12/22 16:47 Dose: 0.4 mg Documented By: AKIL Labs CBC & Chem 7: 07/12/22 03:58 07/13/22 05:18 Labs: Laboratory Results - last 24 hr 07/12/22 07/13/22 12:53 05:18 ESR 94 H Anion Gap 15 Estim Creat Clear Calc 47.7 Estimated GFR 46 Random Glucose 159 H Calcium 8.1 L D Microbiology Microbiology Results: Microbiology 07/12/22 04:01 Blood Culture - Preliminary Blood - Venous No growth after 24 hours. Procedures Date of Service Date of Service: 07/13/22 Progress Note: A&P Assessment and plan (1) Gangrene of left foot: Status: Acute (2) Diabetic foot ulcer: Status: Acute Plan 72-year-old male with history of diabetes and recurrent left foot necrotic ulcer in the lateral foot over the proximal metatarsals. The necrotic skin was debrided today as noted above. Wounds were covered with silver alginate followed by fluffed gauze and Kerlix. The patient tolerated this well. Will monitor the wounds and debride as necessary. Time Spent With Patient Time: Total time spent is greater than 50% in coordination of care (as documented) at patient's floor/unit and/or counseling patient: Quality Stroke Does the patient have a stroke diagnosis?: No VTE Prior VTE?: No VTE Risk Level:: Medical - moderate - high VTE Device Contraindication: Treatment Not Indicated VTE Drug Contraindication: N/A - Med Ordered
--- NOTE | 2022-07-13 10:52 | P.PNIM_ITS ---
Subjective Subjective Date of Service: 07/13/22 Interval History: the patient was seen and evaluated this morning Laying in bed, feels comfortable bedside debridement by dr Badillo No reported other overnight events. Systemic review: No fever, chills or weakness No chest pain, palpitation No shortness of breath or coughing No abdominal pain, nausea or vomiting No urinary symptoms LLE diabetic wound Physical Exam Vital Signs: Vital Signs: Last Vital Signs Temp 98.3 F 07/13/22 07:54 Pulse 71 07/13/22 07:54 Resp 18 07/13/22 07:54 BP 117/57 L 07/13/22 07:54 Pulse Ox 95 07/13/22 07:54 O2 Del Method 07/13/22 07:54 BMI result Body Mass Index 24.4 Const: Other: Constitutional : Alert, oriented, not in distress Neck : Normal inspection, Supple Cardiovascular : RRR, no JVP, no lower extremity edema Respiratory : fair bilateral air entry, no crackles, wheezes or rhonchi Gastrointestinal: soft, lax, Normal bowel sounds, Non tender Skin : Warm, Dry, LLE open wound with drainage, covered with dressing Neurological : Alert & oriented x3, No focal deficit Objective Data Active Medications Atorvastatin Calcium (Atorvastatin Calcium 80 Mg Tablet) 80 mg PO BEDTIME [facility] Last Admin: 07/12/22 19:36 Dose: 80 mg Documented By: SMILEY Docusate Sodium (Docusate Sodium 100 Mg Capsule) 100 mg PO DAILY PRN PRN Reason: Constipation Docusate Sodium (Docusate Sodium 100 Mg Capsule) 100 mg PO DAILY [facility] Last Admin: 07/13/22 08:03 Dose: 100 mg Documented By: GAVINO Ezetimibe (Ezetimibe 10 Mg Tablet) 10 mg PO BEDTIME [facility] Last Admin: 07/12/22 19:36 Dose: 10 mg Documented By: SMILEY Cefepime HCl 2 gm/ Sodium (Chloride) 50 mls @ 100 mls/hr IV Q12H [facility] Last Infusion: 07/13/22 00:02 Dose: 0 mls/hr Documented By: SMILEY Vancomycin HCl 1,000 mg/ (Sodium Chloride) 270 mls @ 270 mls/hr IV Q24H [facility] Last Infusion: 07/13/22 09:06 Dose: 0 mls/hr Documented By: GAVINO Lactated Ringer's (Lr) 1,000 mls @ 50 mls/hr IVCONT .Q20H [facility] Last Admin: 07/13/22 10:43 Dose: Not Given Documented By: GAVINO Non-Admin Reason: IV Running Insulin Glargine (Insulin Glargine,Hum.Rec.Anlog 100 Unit/Ml 10 Ml Vial) 18 unit SUBCUT DAILY [facility] Last Admin: 07/13/22 08:02 Dose: 18 unit Documented By: GAVINO Lisinopril (Lisinopril 10 Mg Tablet) 10 mg PO DAILY [facility]; Protocol Last Admin: 07/13/22 08:03 Dose: 10 mg Documented By: GAVINO Magnesium Oxide (Magnesium Oxide 400 Mg Tablet) 400 mg PO TID [facility] Last Admin: 07/13/22 08:03 Dose: 400 mg Documented By: GAVINO Metoprolol Succinate (Metoprolol Succinate Er 25 Mg Tab.Er.24h) 25 mg PO BEDTIME [facility]; Protocol Last Admin: 07/12/22 19:36 Dose: 25 mg Documented By: SMILEY Omeprazole (Omeprazole 20 Mg Capsule.Dr) 20 mg PO BID@0630,1630 [facility] Last Admin: 07/13/22 05:33 Dose: Not Given Documented By: SMILEY Non-Admin Reason: NPO Ondansetron HCl (Ondansetron Hcl 4 Mg/2 Ml Vial) 4 mg IVPUSH Q8H PRN PRN Reason: Nausea and Vomiting Pharmacy Consult (Consult Rx Perform Med Rec) 1 each MISCELLANE ONCE PRN PRN Reason: Consult order Pharmacy Consult (Consult Rx Vancomycin Dosing) 1 each MISCELLANE DAILY PRN PRN Reason: Consult order Sodium Chloride (0.9 % Sodium Chloride Flush 3 Ml Syringe) 3 ml IVFLUSH QSHIFT [facility] Last Admin: 07/13/22 08:04 Dose: Not Given Documented By: GAVINO Non-Admin Reason: IV Running Tamsulosin HCl (Tamsulosin Hcl 0.4 Mg Capsule) 0.4 mg PO DAILY@1700 [facility] Last Admin: 07/12/22 16:47 Dose: 0.4 mg Documented By: AKIL Labs CBC & Chem 7: 07/12/22 03:58 07/13/22 05:18 Labs: Laboratory Results - last 24 hr 07/12/22 07/13/22 12:53 05:18 ESR 94 H Anion Gap 15 Estim Creat Clear Calc 47.7 Estimated GFR 46 Random Glucose 159 H Calcium 8.1 L D Microbiology Microbiology Results: Microbiology 07/12/22 04:01 Blood Culture - Preliminary Blood - Venous No growth after 24 hours. 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 # Chronic diabetic foot ulcer 2/2 type 2 diabetes with cellulitis XRay showing possible chronic osteo, but showing abscess and sinus tracking General surgery debridement at bedside continue IV vanco and cefepime blood cultures pending get Vascular surgery eval for PAD # chronic osteomyelitis treated with 6 weeks IV ceftriaxone and 01/2022 4 osteomyelitis ID consult pending # HUGO with baseline CKD stage III likely secondary to dehydration\ATN Cr improved to 1.5 DC IVF hold lisinopril follow BMP # persistent atrial fibrillation rate controlled continue Eliquis continue metoprolol for rate # insulin-dependent type 2 diabetes diabetic diet dose adjusted insulin glargine sliding scale continue Jardiance # HLD continue statin # history of endocarditis with mechanical AVR continue Eliquis # hypertension controlled continue furosemide and metoprolol #Right-sided HFpEF- euvolemic Continue lasix DVT prophylaxis apixaban Full code Patient requires inpatient stay overnight due to diabetic foot infection with necrosis requiring IV antibiotics and debridement as well as HUGO pending final blood cultures Quality Stroke Does the patient have a stroke diagnosis?: No VTE Prior VTE?: No VTE Risk Level:: Medical - moderate - high VTE Device Contraindication: Treatment Not Indicated VTE Drug Contraindication: N/A - Med Ordered
[2022-07-13 11:46] VITALS: BP 135/79; PULSE 63; RESP 18; TEMP 37.2; O2SAT 94
[2022-07-13] MEDS: Apixaban 5 MG TABLET PO ×2 (12:20→21:13)
[2022-07-13] MEDS: cefEPime HCl 2 GM in 0.9 % Sodium Chloride 50 ML IV (12:28)
--- NOTE | 2022-07-13 12:38 | HE.PHANOTE ---
VANCO DOSING. BASED ON LABS DOSE CONTINUED AT 100 Q24. TROUGH SET FOR 0600 07/14
[2022-07-13 15:27] VITALS: BP 141/61; PULSE 80; RESP 18; TEMP 36.9; O2SAT 95
--- NOTE | 2022-07-13 15:35 | MHC.CM.PN ---
CM MET WITH PT AND HIS PT IS INDEPENDENT WITH CARE HE HAS NO DME AND NO SERVICES PT REPORTS HE HAS A HCP-COPY REQUESTED PCP: JORGITO TORREZ VAX X 3 IMM DELIVERED CURRENT DC PLAN, HOME WITH NO SERVICES TO TRANSPORT
[2022-07-13] MEDS: Tamsulosin HCL 0.4 MG CAPSULE PO (16:45)
[2022-07-13] MEDS: Omeprazole 20 MG CAPSULE.DR PO (16:45)
[2022-07-13] MEDS: Insulin Lispro 100 UNIT/ML 3 ML VIAL SUBCUT ×2 (16:45→21:14)
[2022-07-13] MEDS: 0.9 % Sodium Chloride Flush 3 ML SYRINGE IVFLUSH ×2 (16:45→20:10)
[2022-07-13 18:48] VITALS: BP 142/67; PULSE 64; RESP 18; TEMP 36.9; O2SAT 93
[2022-07-13 19:24] LABS: Glucose, Whole Blood 221 mg/dL (60-115)
[2022-07-13] MEDS: Metoprolol Succinate ER 25 MG TAB.ER.24H PO (21:13)
[2022-07-13] MEDS: Atorvastatin Calcium 80 MG TABLET PO (21:13)
[2022-07-13] MEDS: Ezetimibe 10 MG TABLET PO (21:13)
[2022-07-14] VITALS (7 sets, daily range): BP systolic 112–179; BP diastolic 55–92; PULSE 60–84; RESP 16–18; TEMP 36.2–36.7; O2SAT 93–98
[2022-07-14] MEDS: cefEPime HCl 2 GM in 0.9 % Sodium Chloride 50 ML IV ×3 (00:43→23:36)
[2022-07-14] MEDS: Omeprazole 20 MG CAPSULE.DR PO ×2 (05:57→16:57)
[2022-07-14 07:29] LABS: Anion Gap 16 (12-20); Blood Urea Nitrogen 29 mg/dL (9-16); Calcium 8.1 mg/dL (8.4-10.2); Carbon Dioxide 20 mmol/L (22-29); Chloride 105 mmol/L (96-108); Creatinine Clr Calc Pharmacy 54.3; Estimated Glomerular Filt Rate 53; Glucose Random 151 mg/dL (60-115); Potassium 4.3 mmol/L (3.3-5.1); Sodium 137 mmol/L (135-145)
--- NOTE | 2022-07-14 08:29 | P.PNGS_ITS ---
Subjective Subjective Date of Service: 07/14/22 <Janis Dominguez PA-C - Last Filed: 07/14/22 08:34> 07/14/22 <Adan Badillo MD - Last Filed: 07/14/22 08:44> Interval history: No new complaints. <Janis Dominguez PA-C - Last Filed: 07/14/22 08:34> Physical Exam Vital Signs: Vital Signs: Last Vital Signs Temp 97.5 F 07/14/22 07:49 Pulse 67 07/14/22 07:49 Resp 18 07/14/22 07:49 BP 145/67 H 07/14/22 07:49 Pulse Ox 97 07/14/22 07:49 O2 Del Method 07/14/22 07:49 BMI result Body Mass Index 24.4 <SAMANTA Horne Last Filed: 07/14/22 08:34> Const: General: comfortable, no acute distress and alert <Jains Dominguez PA-C - Last Filed: 07/14/22 08:34> Orientation/consciousness: patient oriented x3 <Janis Dominguez PA-C - Last Filed: 07/14/22 08:34> Resp: Effort & Inspection: normal respiratory effort <Janis Dominguez PA-C - Last Filed: 07/14/22 08:34> Skin: Other: warm and dry <Janis Dominguez PA-C - Last Filed: 07/14/22 08:34> Neuro: General: patient oriented x3 and moves all extremities <SAMANTA Horne Last Filed: 07/14/22 08:34> Extrem: Other: LLE- wound in the lateral left foot measuring approximately 4 x 5 cm - necrotic subq tissue this morning sharply debrided, no purulent discharge noted, edema of of LLE improved, some erythema persists <SAMANTA Horne Last Filed: 07/14/22 08:34> Objective Data Active Medications Apixaban (Apixaban 5 Mg Tablet) 5 mg PO BID [facility] Last Admin: 07/13/22 21:13 Dose: 5 mg Documented By: LIO Atorvastatin Calcium (Atorvastatin Calcium 80 Mg Tablet) 80 mg PO BEDTIME [facility] Last Admin: 07/13/22 21:13 Dose: 80 mg Documented By: LIO Docusate Sodium (Docusate Sodium 100 Mg Capsule) 100 mg PO DAILY PRN PRN Reason: Constipation Docusate Sodium (Docusate Sodium 100 Mg Capsule) 100 mg PO DAILY [facility] Last Admin: 07/13/22 08:03 Dose: 100 mg Documented By: GAVINO Ezetimibe (Ezetimibe 10 Mg Tablet) 10 mg PO BEDTIME [facility] Last Admin: 07/13/22 21:13 Dose: 10 mg Documented By: LIO Cefepime HCl 2 gm/ Sodium (Chloride) 50 mls @ 100 mls/hr IV Q12H [facility] Last Infusion: 07/14/22 01:20 Dose: 0 mls/hr Documented By: LIO Vancomycin HCl 1,000 mg/ (Sodium Chloride) 270 mls @ 270 mls/hr IV Q24H [facility] Last Infusion: 07/13/22 09:06 Dose: 0 mls/hr Documented By: GAVINO Insulin Glargine (Insulin Glargine,Hum.Rec.Anlog 100 Unit/Ml 10 Ml Vial) 18 unit SUBCUT DAILY [facility] Last Admin: 07/13/22 08:02 Dose: 18 unit Documented By: GAVINO Insulin Human Lispro (Insulin Lispro 100 Unit/Ml 3 Ml Vial) 0 unit SUBCUT QIDACHS [facility]; Protocol Last Admin: 07/13/22 21:14 Dose: 4 unit Documented By: LIO Lisinopril (Lisinopril 10 Mg Tablet) 10 mg PO DAILY [facility]; Protocol Last Admin: 07/13/22 08:03 Dose: 10 mg Documented By: GAVINO Magnesium Oxide (Magnesium Oxide 400 Mg Tablet) 400 mg PO TID [facility] Last Admin: 07/13/22 21:14 Dose: 400 mg Documented By: LIO Metoprolol Succinate (Metoprolol Succinate Er 25 Mg Tab.Er.24h) 25 mg PO BEDTIME [facility]; Protocol Last Admin: 07/13/22 21:13 Dose: 25 mg Documented By: LIO Omeprazole (Omeprazole 20 Mg Capsule.) 20 mg PO BID@0630,1630 [facility] Last Admin: 07/14/22 05:57 Dose: 20 mg Documented By: LIO Ondansetron HCl (Ondansetron Hcl 4 Mg/2 Ml Vial) 4 mg IVPUSH Q8H PRN PRN Reason: Nausea and Vomiting Pharmacy Consult (Consult Rx Perform Med Rec) 1 each MISCELLANE ONCE PRN PRN Reason: Consult order Pharmacy Consult (Consult Rx Vancomycin Dosing) 1 each MISCELLANE DAILY PRN PRN Reason: Consult order Sodium Chloride (0.9 % Sodium Chloride Flush 3 Ml Syringe) 3 ml IVFLUSH QSHIFT [facility] Last Admin: 07/13/22 20:10 Dose: 3 ml Documented By: LIO Tamsulosin HCl (Tamsulosin Hcl 0.4 Mg Capsule) 0.4 mg PO DAILY@1700 [facility] Last Admin: 07/13/22 16:45 Dose: 0.4 mg Documented By: DEUCE <Janis Dominguez PA-C - Last Filed: 07/14/22 08:34> Labs CBC & Chem 7: : 07/12/22 03:58 07/14/22 05:49 <Janis Dominguez PA-C - Last Filed: 07/14/22 08:34> Labs: Laboratory Results - last 24 hr 07/13/22 07/14/22 16:39 05:49 Anion Gap 16 Estim Creat Clear Calc 54.3 Estimated GFR 53 POC Glucose 221 H Random Glucose 151 H Calcium 8.1 L <Janis Dominguez PA-C - Last Filed: 07/14/22 08:34> Microbiology Microbiology Results: Microbiology 07/12/22 04:01 Blood Culture - Preliminary Blood - Venous No growth after 48 hours. 07/12/22 03:57 Blood Culture - Preliminary Blood - Venous No growth after 24 hours. <Janis Dominguez PA-C - Last Filed: 07/14/22 08:34> Procedures Date of Service Date of Service: 07/14/22 <Janis Dominguez PA-C - Last Filed: 07/14/22 08:34> Procedure Note Procedure Note: Procedure: Debridement left lateral foot ulcer anesthesia: None prep: Betadine findings: Necrotic skin measuring 4 x 5 cm with foul discharge procedure details: Skin was prepped and a scissors and forceps used to excise necrotic skin and subcutaneous tissue from the margins of left lateral foot wound down to viable and bleeding subcutaneous tissue. Pressure held to maintain hemostasis. Sterile dressings applied <Adan Badillo MD - Last Filed: 07/14/22 08:44> Progress Note: A&P Assessment and plan (1) Gangrene of left foot: Status: Acute <Janis Dominguez PA-C - Last Filed: 07/14/22 08:34> (2) Diabetic foot ulcer: Status: Acute <Janis Dominguez PA-C - Last Filed: 07/14/22 08:34> Assessment and Plan: 72-year-old male with history of diabetes and recurrent left foot necrotic ulcer in the lateral foot over the proximal metatarsals. Necrotic subcutaneous tissue sharply debrided today and covered with silver alginate followed by fluffed gauze and Kerlix. The patient tolerated this well. Will monitor the wounds and continue to debride as necessary. <Janis Dominguez PA-C - Last Filed: 07/14/22 08:34> Time Spent With Patient Time: Total time spent is greater than 50% in coordination of care (as documented) at patient's floor/unit and/or counseling patient: <Janis Dominguez PA-C - Last Filed: 07/14/22 08:34> Quality Stroke Does the patient have a stroke diagnosis?: No <Janis Dominguez PA-C - Last Filed: 07/14/22 08:34> VTE Prior VTE?: No <Janis Dominguez PA-C - Last Filed: 07/14/22 08:34> VTE Risk Level:: Medical - moderate - high <Janis Dominguez PA-C - Last Filed: 07/14/22 08:34> VTE Device Contraindication: Treatment Not Indicated <Janis Dominguez PA-C - Last Filed: 07/14/22 08:34> VTE Drug Contraindication: N/A - Med Ordered <Janis Dominguez PA-C - Last Filed: 07/14/22 08:34>
[2022-07-14] MEDS: Insulin Glargine,Hum.rec.anlog 100 UNIT/ML 10 ML VIAL 18 UNIT SUBCUT (08:36)
[2022-07-14] MEDS: Apixaban 5 MG TABLET PO ×2 (08:36→20:46)
[2022-07-14] MEDS: Docusate Sodium 100 MG CAPSULE PO (08:36)
[2022-07-14] MEDS: Magnesium Oxide 400 MG TABLET PO ×3 (08:36→20:45)
[2022-07-14] MEDS: 0.9 % Sodium Chloride Flush 3 ML SYRINGE IVFLUSH ×3 (08:37→23:36)
[2022-07-14] MEDS: Insulin Lispro 100 UNIT/ML 3 ML VIAL SUBCUT ×4 (08:37→20:46)
[2022-07-14] MEDS: vancomycin HCL 1,000 MG in 0.9 % Sodium Chloride 250 ML 270 MG IV (09:23)
--- NOTE | 2022-07-14 11:10 | HE.PHANOTE ---
VANCO DOSING ADJUSTMENT BASED ON SCR AND TROUGH OF 16. DOSE CONTINUED 1000 Q 24. NEXT TROUGH AT 07/16 @ 0600
[2022-07-14 12:48] LABS: Creatinine Clr Calc Pharmacy 55.1; Estimated Glomerular Filt Rate 54
--- NOTE | 2022-07-14 13:00 | P.CONGS_ITS ---
History of Present Illness Consult details Consult date: 07/14/22 Reason for consult: wound care Narrative: Very pleasant 72-year-old gentleman presents for evaluation regarding left foot ulceration. Of note he has a history of diabetes for over 20 years. In rianna tion he has been seen at [facility] vascular in the past. 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 Yousif. He has been receiving routine surveillance follow-up over there. Most recently he developed a left foot blister which has progressed to a wound. He now presents to us for vascular evaluation. Of note he has also had prior open heart surgery at [facility]. Review of Systems Review of Systems: Yes all other systems are reviewed and are negative Constitutional: Constitutional: Reports no additional constitutional complaints ENT: Reports Normal hearing present Cardiovascular: Cardiovascular: Denies chest pain, Denies chest pain at rest, Denies chest pain with activity and Denies pedal edema Respiratory: Respiratory: Denies cough Gastrointestinal: Gastrointestinal: Denies abdominal pain Musculoskeletal: Musculoskeletal: Denies abnormal gait, Denies muscle cramps and Denies radiating pain into limb Integumentary/Breasts: Skin/Breast: Denies skin ulcer and Denies wounds Neurologic: Reports Normal hearing present and Denies abnormal gait Psychiatric: Psychiatric: Reports no additional psychiatric complaints PMFSH Past Medical History Medical History Atrial fibrillation Chronic kidney disease, unspecified Coronary artery disease Diabetic foot ulcer Endocarditis of aortic valve Essential hypertension Group C streptococcal infection Hemorrhage of gastrointestinal tract, unspecified History of hemodialysis HIT (heparin-induced thrombocytopenia) (~2018) Hyperlipidemia, unspecified Hypomagnesemia Hypothyroidism Persistent atrial fibrillation Pulmonary nodule Type 2 diabetes mellitus with unspecified complications Family History Family History Father Emphysema, unspecified Mother Cardiovascular disease Surgical History Surgical History History of cardiac catheterization (~11/17/18) History of lung biopsy (~02/14/21) History of maze procedure Status post aortic valve replacement with bioprosthetic valve (~01/2019) Status post coronary artery bypass graft (~01/2019) Status post foot surgery Social History Social History Household Members: Significant Other Housing: House Do you presently have visiting nurse or other home services: No Alcohol intake: never Patient Tobacco Use Status: Former Tobacco user Tobacco use type: Pipe Advance Directives Date on File: 06/27/20 service: No Current occupational status: retired Meds Allergies Allergy/AdvReac Type Severity Reaction Status Date / Time Heparin Analogues Allergy Severe HIT Verified 05/09/22 10:00 [HEPARIN ANALOGUES] acetaminophen [From TYLENOL] Allergy Unknown UNKNOWN Verified 05/09/22 10:00 Sulfa (Sulfonamide Allergy Unknown HIVES Verified 05/09/22 10:00 Antibiotics) [SULFA (SULFONAMIDE ANTIBIOTICS)] Active Medications: Current Medications Apixaban (Apixaban 5 Mg Tablet) 5 mg PO BID [facility] Last Admin: 07/14/22 08:36 Dose: 5 mg Atorvastatin Calcium (Atorvastatin Calcium 80 Mg Tablet) 80 mg PO BEDTIME [facility] Last Admin: 07/13/22 21:13 Dose: 80 mg Docusate Sodium (Docusate Sodium 100 Mg Capsule) 100 mg PO DAILY PRN PRN Reason: Constipation Docusate Sodium (Docusate Sodium 100 Mg Capsule) 100 mg PO DAILY [facility] Last Admin: 07/14/22 08:36 Dose: 100 mg Ezetimibe (Ezetimibe 10 Mg Tablet) 10 mg PO BEDTIME [facility] Last Admin: 07/13/22 21:13 Dose: 10 mg Cefepime HCl 2 gm/ Sodium (Chloride) 50 mls @ 100 mls/hr IV Q12H [facility] Last Infusion: 07/14/22 12:57 Dose: Infused Vancomycin HCl 1,000 mg/ (Sodium Chloride) 270 mls @ 270 mls/hr IV Q24H [facility] Last Infusion: 07/14/22 10:44 Dose: Infused Insulin Glargine (Insulin Glargine,Hum.Rec.Anlog 100 Unit/Ml 10 Ml Vial) 18 unit SUBCUT DAILY [facility] Last Admin: 07/14/22 08:36 Dose: 18 unit Insulin Human Lispro (Insulin Lispro 100 Unit/Ml 3 Ml Vial) 0 unit SUBCUT QIDACHS [facility]; Protocol Last Admin: 07/14/22 12:16 Dose: 2 unit Lisinopril (Lisinopril 10 Mg Tablet) 10 mg PO DAILY [facility]; Protocol Last Admin: 07/13/22 08:03 Dose: 10 mg Magnesium Oxide (Magnesium Oxide 400 Mg Tablet) 400 mg PO TID [facility] Last Admin: 07/14/22 08:36 Dose: 400 mg Metoprolol Succinate (Metoprolol Succinate Er 25 Mg Tab.Er.24h) 25 mg PO BEDTIME [facility]; Protocol Last Admin: 07/13/22 21:13 Dose: 25 mg Omeprazole (Omeprazole 20 Mg Capsule.Dr) 20 mg PO BID@0630,1630 [facility] Last Admin: 07/14/22 05:57 Dose: 20 mg Ondansetron HCl (Ondansetron Hcl 4 Mg/2 Ml Vial) 4 mg IVPUSH Q8H PRN PRN Reason: Nausea and Vomiting Pharmacy Consult (Consult Rx Perform Med Rec) 1 each MISCELLANE ONCE PRN PRN Reason: Consult order Pharmacy Consult (Consult Rx Vancomycin Dosing) 1 each MISCELLANE DAILY PRN PRN Reason: Consult order Sodium Chloride (0.9 % Sodium Chloride Flush 3 Ml Syringe) 3 ml IVFLUSH QSHIFT [facility] Last Admin: 07/14/22 08:37 Dose: 3 ml Tamsulosin HCl (Tamsulosin Hcl 0.4 Mg Capsule) 0.4 mg PO DAILY@1700 [facility] Last Admin: 07/13/22 16:45 Dose: 0.4 mg Home Medications Medication Instructions Recorded Confirmed Last Taken Type atorvastatin 80 mg tablet 80 mg PO BEDTIME 07/18/20 07/12/22 07/11/22 History insulin glargine 100 unit/mL (3 25 unit subcut DAILY 07/18/20 07/12/22 07/11/22 History mL) subcutaneous pen magnesium oxide 400 mg (241.3 mg 400 mg PO TID 07/18/20 07/12/22 07/11/22 History magnesium) tablet insulin lispro 100 unit/mL See Protocol subcut QIDACHS 07/26/20 07/12/22 07/11/22 History subcutaneous pen (Humalog KwikPen (U-100) Insulin) tamsulosin 0.4 mg capsule (Flomax) 0.4 mg PO DAILY@1700 07/26/20 07/12/22 07/11/22 History omeprazole 20 mg capsule,delayed 20 mg PO BID@0630,1630 01/09/21 07/12/22 07/11/22 History release blood sugar diagnostic #10 ea 02/01/21 05/09/22 07/11/22 History blood-glucose meter #1 ea 02/01/21 05/09/22 07/11/22 History pen needle, diabetic 32 gauge x #50 ea 02/01/21 05/09/22 07/11/22 History docusate sodium 100 mg capsule 100 mg PO DAILY 02/07/22 07/12/22 07/11/22 History (Stool Softener) metoprolol succinate 25 mg 25 mg PO BEDTIME 02/07/22 07/12/22 07/11/22 History tablet,extended release 24 hr (Toprol XL) Lactobacillus acidophilus 10 10,000 mmu cells PO BID 07/12/22 07/12/22 Unknown History billion cell capsule (Probiotic) Physical Exam Vital Signs: Vital Signs: Last Vital Signs Temp 97.2 F 07/14/22 10:52 Pulse 63 07/14/22 10:52 Resp 18 07/14/22 10:52 BP 164/72 H 07/14/22 10:52 Pulse Ox 98 07/14/22 10:52 O2 Del Method 07/14/22 10:52 BMI result Body Mass Index 24.4 Const: General: cooperative, healthy appearing and comfortable Orie ntation/consciousness: oriented to person, oriented to place and oriented to time HEENT: Head: Yes normal to inspection Neck: Neck: Yes normal visual inspection Carotids: no bruits Chest: Chest palpation & inspection: normal inspection of the chest Resp: Effort & Inspection: normal respiratory effort and able to speak in complete sentences Auscultation: clear to auscultation bilaterally, no crackles, no rales, no rhonchi and no wheezes Cardio: Rate: regular rate Rhythm: regular rhythm Heart sounds: S1 nor mal heart sound present and S2 normal heart sound present Bruits: no carotid bruits Peripheral pulses: dorsalis pedis present (Bilateral DP signals) GI: Inspection: Yes normal to inspection Skin: Wounds: wounds noted (Left foot) Hair: normal Neuro: General: oriented to person, oriented to place and oriented to time Cranial nerves: Yes CN's II-XII intact bilaterally and Yes Normal hearing present Cognition (Neuro): normal cognition Motor exam (neuro): 5/5 motor strength present throughout Extrem: Other: venous exam: No significant superficial varicosities or spider telangiectasias, minimal edema General: No clubbing, No cyanosis and No edema Psych: Appearance: grossly normal Mental Status: mental status grossly normal Speech and movement: Normal speech and movement present Results Labs Result diagrams: 07/12/22 03:58 07/14/22 11:53 Labs: Abnormal lab results 07/13/22 07/14/22 Range/Units 16:39 05:49 Carbon Dioxide 20 L (22-29) mmol/L BUN 29 H (9-16) mg/dL POC Glucose 221 H (60-115) mg/dL Random Glucose 151 H (60-115) mg/dL Calcium 8.1 L (8.4-10.2) mg/dL BMP 07/14/22 07/14/22 05:49 11:53 Sodium 137 Potassium 4.3 Chloride 105 Carbon Dioxide 20 L BUN 29 H Creatinine 1.31 1.29 Calcium 8.1 L Urine 07/11/22 Range/Units Unknown Urine Color Yellow Urine Appearance Clear Urine pH 5.5 (5.0-9.0) Ur Specific Gal[place] 1.020 (1.005-1.025) Urine Protein 100 (2+) H (Neg-Trace) mg/dL Urine Glucose (UA) Negative (Negative) mg/dL All other labs normal. Assessment and Plan (1) PAD (peripheral artery disease): Status: Acute Plan In short patient has a nonhealing left foot ulcer. Imaging was reviewed and there is concern for underlying osteomyelitis. At the current time he is receiving antibiotic therapy. I have taken the liberty of ordering noninvasive testing. The patient will follow up with us after testing. Thank you for allowing us to assist in his care. If there are any questions or concerns please do not hesitate to contact us. Procedures Date of Service Date of Service: 07/14/22
--- NOTE | 2022-07-14 13:15 | MHC.CM.PN ---
Per MD rounds, plan for ID consult and vascular consult, will be ready for d/c in 1-2 days. CM will continue to follow for d/c planning needs.
--- NOTE | 2022-07-14 14:18 | HO.PM.IMPN ---
Subjective Subjective Date of Service: 07/14/22 Interval History: the patient was seen and evaluated this morning Laying in bed, feels comfortable bedside debridement by dr Badillo for 2nd time this morning No reported other overnight events. Systemic review: No fever, chills or weakness No chest pain, palpitation No shortness of breath or coughing No abdominal pain, nausea or vomiting No urinary symptoms LLE diabetic wound Physical Exam Vital Signs: Vital Signs: Last Vital Signs Temp 97.2 F 07/14/22 10:52 Pulse 63 07/14/22 10:52 Resp 18 07/14/22 10:52 BP 164/72 H 07/14/22 10:52 Pulse Ox 98 07/14/22 10:52 O2 Del Method 07/14/22 10:52 BMI result Body Mass Index 24.4 Const: Other: Constitutional : Alert, oriented, not in distress Neck : Normal inspection, Supple Cardiovascular : RRR, no JVP, no lower extremity edema Respiratory : fair bilateral air entry, no crackles, wheezes or rhonchi Gastrointestinal: soft, lax, Normal bowel sounds, Non tender Skin : Warm, Dry, LLE open wound with drainage, covered with dressing, erythema and swelling decreasing Neurological : Alert & oriented x3, No focal deficit Objective Data Active Medications Apixaban (Apixaban 5 Mg Tablet) 5 mg PO BID [facility] Last Admin: 07/14/22 08:36 Dose: 5 mg Documented By: KENNETH Atorvastatin Calcium (Atorvastatin Calcium 80 Mg Tablet) 80 mg PO BEDTIME [facility] Last Admin: 07/13/22 21:13 Dose: 80 mg Documented By: LIO Docusate Sodium (Docusate Sodium 100 Mg Capsule) 100 mg PO DAILY PRN PRN Reason: Constipation Docusate Sodium (Docusate Sodium 100 Mg Capsule) 100 mg PO DAILY [facility] Last Admin: 07/14/22 08:36 Dose: 100 mg Documented By: KENNETH Ezetimibe (Ezetimibe 10 Mg Tablet) 10 mg PO BEDTIME [facility] Last Admin: 07/13/22 21:13 Dose: 10 mg Documented By: LIO Cefepime HCl 2 gm/ Sodium (Chloride) 50 mls @ 100 mls/hr IV Q12H [facility] Last Infusion: 07/14/22 12:57 Dose: 0 mls/hr Documented By: KENNETH Vancomycin HCl 1,000 mg/ (Sodium Chloride) 270 mls @ 270 mls/hr IV Q24H [facility] Last Infusion: 07/14/22 10:44 Dose: 0 mls/hr Documented By: KENNETH Insulin Glargine (Insulin Glargine,Hum.Rec.Anlog 100 Unit/Ml 10 Ml Vial) 18 unit SUBCUT DAILY [facility] Last Admin: 07/14/22 08:36 Dose: 18 unit Documented By: KNENETH Insulin Human Lispro (Insulin Lispro 100 Unit/Ml 3 Ml Vial) 0 unit SUBCUT QIDACHS [facility]; Protocol Last Admin: 07/14/22 12:16 Dose: 2 unit Documented By: KENNETH Lisinopril (Lisinopril 10 Mg Tablet) 10 mg PO DAILY [facility]; Protocol Last Admin: 07/13/22 08:03 Dose: 10 mg Documented By: GAVINO Magnesium Oxide (Magnesium Oxide 400 Mg Tablet) 400 mg PO TID [facility] Last Admin: 07/14/22 08:36 Dose: 400 mg Documented By: KENNETH Metoprolol Succinate (Metoprolol Succinate Er 25 Mg Tab.Er.24h) 25 mg PO BEDTIME [facility]; Protocol Last Admin: 07/13/22 21:13 Dose: 25 mg Documented By: LIO Omeprazole (Omeprazole 20 Mg Capsule.) 20 mg PO BID@0630,1630 [facility] Last Admin: 07/14/22 05:57 Dose: 20 mg Documented By: LIO Ondansetron HCl (Ondansetron Hcl 4 Mg/2 Ml Vial) 4 mg IVPUSH Q8H PRN PRN Reason: Nausea and Vomiting Pharmacy Consult (Consult Rx Perform Med Rec) 1 each MISCELLANE ONCE PRN PRN Reason: Consult order Pharmacy Consult (Consult Rx Vancomycin Dosing) 1 each MISCELLANE DAILY PRN PRN Reason: Consult order Sodium Chloride (0.9 % Sodium Chloride Flush 3 Ml Syringe) 3 ml IVFLUSH QSHIFT [facility] Last Admin: 07/14/22 08:37 Dose: 3 ml Documented By: KENNETH Tamsulosin HCl (Tamsulosin Hcl 0.4 Mg Capsule) 0.4 mg PO DAILY@1700 [facility] Last Admin: 07/13/22 16:45 Dose: 0.4 mg Documented By: HO.TETREAM Labs CBC & Chem 7: 07/12/22 03:58 07/14/22 11:53 Labs: Laboratory Results - last 24 hr 07/13/22 07/14/22 07/14/22 16:39 05:49 05:49 Anion Gap 16 Estim Creat Clear Calc 54.3 Estimated GFR 53 POC Glucose 221 H Random Glucose 151 H Calcium 8.1 L Random Vancomycin 16.0 07/14/22 11:53 Anion Gap Estim Creat Clear Calc 55.1 Estimated GFR 54 POC Glucose Random Glucose Calcium Random Vancomycin Microbiology Microbiology Results: Microbiology 07/12/22 04:01 Blood Culture - Preliminary Blood - Venous No growth after 48 hours. 07/12/22 03:57 Blood Culture - Preliminary Blood - Venous No growth after 24 hours. Assessment and Plan (1) PAD (peripheral artery disease): Status: Acute (2) Gangrene of left foot: Status: Acute (3) Diabetic foot ulcer: Status: Acute Plan 71-year-old male with a past medical history of hypertension, hyperlipidemia, diabetes, CAD status post CABG, history right sided HRpEF, history of aortic valve 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 # Left foot necrotic ulcer 2/2 type 2 diabetes with cellulitis XRay showing possible chronic osteo, but showing abscess and sinus tracking General surgery debridement at bedside twice continue IV vanco and cefepime blood cultures negative Vascular surgery input appreciated, noninvasive testing # chronic osteomyelitis treated with 6 weeks IV ceftriaxone on 01/2022 for osteomyelitis ID consult pending # HUGO with baseline CKD stage III likely secondary to dehydration\ATN Cr improved to 1.29 DC IVF hold lisinopril follow BMP # persistent atrial fibrillation rate controlled continue Eliquis continue metoprolol for rate # insulin-dependent type 2 diabetes diabetic diet dose adjusted insulin glargine sliding scale continue Jardiance # HLD continue statin # history of endocarditis with mechanical AVR continue Eliquis # hypertension controlled continue furosemide and metoprolol #Right-sided HFpEF- euvolemic Continue lasix DVT prophylaxis apixaban Full code Patient requires inpatient stay overnight due to diabetic foot infection with necrosis requiring IV antibiotics and debridement as well as HUGO pending ID eval for safe discharge plan Quality Stroke Does the patient have a stroke diagnosis?: No VTE Prior VTE?: No VTE Risk Level:: Medical - moderate - high VTE Device Contraindication: Treatment Not Indicated VTE Drug Contraindication: N/A - Med Ordered
[2022-07-14] MEDS: Tamsulosin HCL 0.4 MG CAPSULE PO (16:57)
[2022-07-14] MEDS: Metoprolol Succinate ER 25 MG TAB.ER.24H PO ×2 (20:45→20:48)
[2022-07-14] MEDS: Atorvastatin Calcium 80 MG TABLET PO (20:45)
[2022-07-14] MEDS: Ezetimibe 10 MG TABLET PO (20:45)
[2022-07-15 04:00] VITALS: BP 152/67; PULSE 66; RESP 18; TEMP 36.6; O2SAT 94
[2022-07-15] MEDS: Omeprazole 20 MG CAPSULE.DR PO ×2 (05:52→16:25)
[2022-07-15 06:59] LABS: Hematocrit 29.9 % (42.0-52.0); Hemoglobin 9.6 g/dl (14.0-18.0); Mean Corpuscular HGB Conc 32.1 g/dl (31.0-36.0); Mean Corpuscular Hemoglobin 28.7 pg (27.0-33.0); Mean Corpuscular Volume 89.3 fL (80.0-98.0); Platelet Count 151 X10*3/uL (160-400); Red Blood Count 3.35 X10*6/uL (4.60-5.80); White Blood Count 7.1 X10*3/uL (4.8-10.8)
[2022-07-15 07:30] LABS: Anion Gap 13 (12-20); Blood Urea Nitrogen 22 mg/dL (9-16); Calcium 8.3 mg/dL (8.4-10.2); Carbon Dioxide 23 mmol/L (22-29); Chloride 106 mmol/L (96-108); Creatinine Clr Calc Pharmacy 63.5; Estimated Glomerular Filt Rate > 60; Glucose Random 142 mg/dL (60-115); Potassium 4.2 mmol/L (3.3-5.1); Sodium 138 mmol/L (135-145)
[2022-07-15 07:33] LABS: Estimated Glomerular Filt Rate > 60
[2022-07-15 07:48] VITALS: BP 183/76; PULSE 52; RESP 18; TEMP 35.9; O2SAT 95
[2022-07-15] MEDS: Apixaban 5 MG TABLET PO (08:20)
[2022-07-15] MEDS: vancomycin HCL 1,000 MG in 0.9 % Sodium Chloride 250 ML 270 MG IV (08:20)
[2022-07-15] MEDS: Magnesium Oxide 400 MG TABLET PO ×3 (08:21→21:12)
[2022-07-15] MEDS: Insulin Glargine,Hum.rec.anlog 100 UNIT/ML 10 ML VIAL 18 UNIT SUBCUT (08:21)
[2022-07-15] MEDS: 0.9 % Sodium Chloride Flush 3 ML SYRINGE IVFLUSH ×2 (08:22→16:25)
--- NOTE | 2022-07-15 09:26 | HO.VASCPN ---
Subjective Subjective Date of Service: 07/15/22 Patient reports: no new complaints Interval history: Very pleasant 72-year-old gentleman presents for follow-up regarding nonhealing left foot ulcer. He reports that it originally began as a blister about 3 weeks prior. He has undergone noninvasive arterial testing yesterday and now presents for follow-up. Physical Exam Vital Signs: Vital Signs: Last Vital Signs Temp 96.6 F L 07/15/22 07:48 Pulse 52 07/15/22 07:48 Resp 18 07/15/22 07:48 BP 183/76 H 07/15/22 07:48 Pulse Ox 95 07/15/22 07:48 O2 Del Method 07/15/22 07:48 BMI result Body Mass Index 24.4 Const: General: cooperative, healthy appearing and no acute distress Orientation/consciousness: oriented to person, oriented to place and oriented to time HEENT: Head: Yes normal to inspection Neck: Carotids: no bruits Chest: Chest palpation & inspection: normal inspection of the chest Resp: Effort & Inspection: normal respiratory effort and able to speak in complete sentences Auscultation: clear to auscultation bilaterally Cardio: Rate: regular rate Heart sounds: S1 normal heart sound present and S2 normal heart sound present Peripheral pulses: dorsalis pedis present (Left foot DP signal) GI: Inspection: Yes normal to inspection Skin: Other: Left lateral foot ulcer penetrating to bone General skin exam: no rashes or lesions noted Wounds: wounds noted (Left foot) Neuro: General: oriented to person, oriented to place, oriented to time and CN's II-XI intact bilaterally Extrem: General: Yes normal to inspection, Yes full ROM and Yes no clubbing, cyanosis or edema Psych: Appearance: grossly normal and well kempt Speech and movement: Normal speech and movement present Affect: normal affect Progress Note: A&P Assessment and plan (1) PAD (peripheral artery disease): Status: Acute Plan In short patient has left foot diabetic ulcer. I did have a chance to review his noninvasive testing which does demonstrate some SFA disease. He is in need of an angiogram. We will hold his Eliquis. Will schedule him for most likely . I do feel that his ulcer is quite significant and the fact that it penetrates to bone is quite concerning. He is at very high risk amputation. I did relay this to the patient as well. Time Spent With Patient Time: Total time spent is greater than 50% in coordination of care (as documented) at patient's floor/unit and/or counseling patient: Procedures Date of Service Date of Service: 07/15/22 Quality Stroke Does the patient have a stroke diagnosis?: No VTE Prior VTE?: No VTE Risk Level:: Medical - moderate - high VTE Device Contraindication: Treatment Not Indicated VTE Drug Contraindication: N/A - Med Ordered
[2022-07-15 11:26] VITALS: BP 164/70; PULSE 61; RESP 18; TEMP 36.1; O2SAT 97
--- NOTE | 2022-07-15 11:29 | P.PNIM_ITS ---
Subjective Subjective Date of Service: 07/15/22 Interval History: the patient was seen and evaluated this morning Laying in bed, feels better with decreased swelling and erythema in his leg Duplex ultrasound showing evidence of distal femoral artery stenosis on the left side bedside debridement by dr La No reported other overnight events. Systemic review: No fever, chills or weakness No chest pain, palpitation No shortness of breath or coughing No abdominal pain, nausea or vomiting No urinary symptoms LLE diabetic wound Physical Exam Vital Signs: Vital Signs: Last Vital Signs Temp 97.0 F 07/15/22 11:26 Pulse 61 07/15/22 11:26 Resp 18 07/15/22 11:26 BP 164/70 H 07/15/22 11:26 Pulse Ox 97 07/15/22 11:26 O2 Del Method 07/15/22 11:26 BMI result Body Mass Index 24.4 Const: Other: Constitutional : Alert, oriented, not in distress Neck : Normal inspection, Supple Cardiovascular : RRR, no JVP, no lower extremity edema Respiratory : fair bilateral air entry, no crackles, wheezes or rhonchi Gastrointestinal: soft, lax, Normal bowel sounds, Non tender Skin : Warm, Dry, LLE open wound with drainage, covered with dressing, erythema and swelling decreasing Neurological : Alert & oriented x3, No focal deficit Objective Data Active Medications Atorvastatin Calcium (Atorvastatin Calcium 80 Mg Tablet) 80 mg PO BEDTIME REPLACED BY [facility] Last Admin: 07/14/22 20:45 Dose: 80 mg Documented By: BETHANY Docusate Sodium (Docusate Sodium 100 Mg Capsule) 100 mg PO DAILY PRN PRN Reason: Constipation Docusate Sodium (Docusate Sodium 100 Mg Capsule) 100 mg PO DAILY REPLACED BY [facility] Last Admin: 07/15/22 08:22 Dose: Not Given Documented By: KENNETH Non-Admin Reason: loose stools Ezetimibe (Ezetimibe 10 Mg Tablet) 10 mg PO BEDTIME REPLACED BY [facility] Last Admin: 07/14/22 20:45 Dose: 10 mg Documented By: BETHANY Cefepime HCl 2 gm/ Sodium (Chloride) 50 mls @ 100 mls/hr IV Q12H REPLACED BY [facility] Last Infusion: 07/15/22 00:26 Dose: 0 mls/hr Documented By: BETHANY Vancomycin HCl 1,000 mg/ (Sodium Chloride) 270 mls @ 270 mls/hr IV Q24H REPLACED BY [facility] Last Infusion: 07/15/22 09:32 Dose: 0 mls/hr Documented By: KENNETH Insulin Glargine (Insulin Glargine,Hum.Rec.Anlog 100 Unit/Ml 10 Ml Vial) 18 un it SUBCUT DAILY REPLACED BY [facility] Last Admin: 07/15/22 08:21 Dose: 18 unit Documented By: KENNETH Insulin Human Lispro (Insulin Lispro 100 Unit/Ml 3 Ml Vial) 0 unit SUBCUT QIDACHS REPLACED BY [facility]; Protocol Last Admin: 07/15/22 07:31 Dose: Not Given Documented By: KENNETH Non-Admin Reason: No Insulin Coverage Lisinopril (Lisinopril 10 Mg Tablet) 10 mg PO DAILY REPLACED BY [facility]; Protocol Last Admin: 07/13/22 08:03 Dose: 10 mg Documented By: GAVINO Magnesium Oxide (Magnesium Oxide 400 Mg Tablet) 400 mg PO TID REPLACED BY [facility] Last Admin: 07/15/22 08:21 Dose: 400 mg Documented By: KENNETH Metoprolol Succinate (Metoprolol Succinate Er 25 Mg Tab.Er.24h) 25 mg PO BEDTIME REPLACED BY [facility]; Protocol Last Admin: 07/14/22 20:48 Dose: 25 mg Documented By: BETHANY Omeprazole (Omeprazole 20 Mg Capsule.) 20 mg PO BID@0630,1630 REPLACED BY [facility] Last Admin: 07/15/22 05:52 Dose: 20 mg Documented By: BETHANY Ondansetron HCl (Ondansetron Hcl 4 Mg/2 Ml Vial) 4 mg IVPUSH Q8H PRN PRN Reason: Nausea and Vomiting Pharmacy Consult (Consult Rx Perform Med Rec) 1 each MISCELLANE ONCE PRN PRN Reason: Consult order Pharmacy Consult (Consult Rx Vancomycin Dosing) 1 each MISCELLANE DAILY PRN PRN Reason: Consult order Sodium Chloride (0.9 % Sodium Chloride Flush 3 Ml Syringe) 3 ml IVFLUSH QSHIFT REPLACED BY [facility] Last Admin: 07/15/22 08:22 Dose: 3 ml Documented By: KENNETH Tamsulosin HCl (Tamsulosin Hcl 0.4 Mg Capsule) 0.4 mg PO DAILY@1700 REPLACED BY [facility] Last Admin: 07/14/22 16:57 Dose: 0.4 mg Documented By: KENNETH Labs CBC & Chem 7: 07/15/22 05:53 07/15/22 05:53 Labs: Laboratory Results - last 24 hr 07/14/22 07/15/22 07/15/22 11:53 05:53 05:53 MCV 89.3 MCH 28.7 MCHC 32.1 RDW 14.0 Plt Count 151 L MPV 11.0 Absolute Nucleated RBC 0.000 Nucleated RBC % (auto) 0.0 Anion Gap Estim Creat Clear Calc 55.1 64.0 Estimated GFR 54 > 60 Random Glucose Calcium 07/15/22 05:53 MCV MCH MCHC RDW Plt Count MPV Absolute Nucleated RBC Nucleated RBC % (auto) Anion Gap 13 Estim Creat Clear Calc 63.5 Estimated GFR > 60 Random Glucose 142 H Calcium 8.3 L Microbiology Microbiology Results: Microbiology 07/12/22 03:57 Blood Culture - Preliminary Blood - Venous No growth after 48 hours. 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 # Left foot necrotic ulcer 2/2 type 2 diabetes with cellulitis XRay showing possible chronic osteo, but showing abscess and sinus tracking General surgery debridement at bedside twice continue IV vanco and cefepime blood cultures negative # PAD Vascular studies showing evidence of distal stenosis in Lt SFA to do angiogram by Eliquis held per vascular recommendatiosn, can not tolerate Lovenox\Heparin for hx of HIT Vascular surgery input appreciated, high risk for amputation # chronic osteomyelitis treated with 6 weeks IV ceftriaxone on 01/2022 for osteomyelitis ID consult pending # HUGO with baseline CKD stage III likely secondary to dehydration\ATN Cr improved to 1.29 DC IVF hold lisinopril follow BMP # persistent atrial fibrillation rate controlled continue Eliquis continue metoprolol for rate # insulin-dependent type 2 diabetes diabetic diet dose adjusted insulin glargine sliding scale continue Jardiance # HLD continue statin # history of endocarditis with mechanical AVR continue Eliquis # hypertension controlled continue furosemide and metoprolol #Right-sided HFpEF- euvolemic Continue lasix DVT prophylaxis apixaban Full code Patient requires inpatient stay overnight due to diabetic foot infection with necrosis requiring IV antibiotics and debridement as well as HUGO pending ID eval for safe discharge plan Quality Stroke Does the patient have a stroke diagnosis?: No VTE Prior VTE?: No VTE Risk Level:: Medical - moderate - high VTE Device Contraindication: Treatment Not Indicated VTE Drug Contraindication: N/A - Med Ordered
[2022-07-15] MEDS: cefEPime HCl 2 GM in 0.9 % Sodium Chloride 50 ML IV ×2 (12:19→23:57)
--- NOTE | 2022-07-15 13:12 | HE.PHANOTE ---
Vanco Dosing Based on Scr dose continued for . Next trough 07/16 @ 0600
--- NOTE | 2022-07-15 14:37 | P.CNID_ITS ---
History of Present Illness Data of Consult Service Date: 07/14/22 Requesting physician: Alexandra Malave Primary Care Provider: Nicolás Rai MD [facility] Reason for consult: left foot infection He has chronic left foot infection and last week had worsening of necrosis He now had debridement He has has Group C strep in past He has no fever or chills Review of Systems Review of Systems: Yes all other systems are reviewed and are negative PMFSH Past Medical History Medical History Atrial fibrillation Chronic kidney disease, unspecified Coronary artery disease Diabetic foot ulcer Endocarditis of aortic valve Essential hypertension Group C streptococcal infection Hemorrhage of gastrointestinal tract, unspecified History of hemodialysis HIT (heparin-induced thrombocytopenia) (~2018) Hyperlipidemia, unspecified Hypomagnesemia Hypothyroidism Persistent atrial fibrillation Pulmonary nodule Type 2 diabetes mellitus with unspecified complications Family History Family History Father Emphysema, unspecified Mother Cardiovascular disease Family history: reviewed and not pertinent Surgical History Surgical History History of cardiac catheterization (~11/17/18) History of lung biopsy (~02/14/21) History of maze procedure Status post aortic valve replacement with bioprosthetic valve (~01/2019) Status post coronary artery bypass graft (~01/2019) Status post foot surgery Social History Social History Household Members: Significant Other Housing: House Do you presently have visiting nurse or other home services: No Alcohol intake: never Patient Tobacco Use Status: Former Tobacco user Tobacco use type: Pipe Advance Directives Date on File: 06/27/20 service: No Current occupational status: retired Meds Allergies Allergy/AdvReac Type Severity Reaction Status Date / Time Heparin Analogues Allergy Severe HIT Verified 05/09/22 10:00 [HEPARIN ANALOGUES] acetaminophen [From TYLENOL] Allergy Unknown UNKNOWN Verified 05/09/22 10:00 Sulfa (Sulfonamide Allergy Unknown HIVES Verified 05/09/22 10:00 Antibiotics) [SULFA (SULFONAMIDE ANTIBIOTICS)] Active Medications: Current Medications Atorvastatin Calcium (Atorvastatin Calcium 80 Mg Tablet) 80 mg PO BEDTIME [facility] Last Admin: 07/14/22 20:45 Dose: 80 mg Docusate Sodium (Docusate Sodium 100 Mg Capsule) 100 mg PO DAILY PRN PRN Reason: Constipation Docusate Sodium (Docusate Sodium 100 Mg Capsule) 100 mg PO DAILY [facility] Last Admin: 07/15/22 08:22 Dose: Not Given Ezetimibe (Ezetimibe 10 Mg Tablet) 10 mg PO BEDTIME [facility] Last Admin: 07/14/22 20:45 Dose: 10 mg Cefepime HCl 2 gm/ Sodium (Chloride) 50 mls @ 100 mls/hr IV Q12H [facility] Last Infusion: 07/15/22 13:14 Dose: Infused Vancomycin HCl 1,000 mg/ (Sodium Chloride) 270 mls @ 270 mls/hr IV Q24H [facility] Last Infusion: 07/15/22 09:32 Dose: Infused Insulin Glargine (Insulin Glargine,Hum.Rec.Anlog 100 Unit/Ml 10 Ml Vial) 18 unit SUBCUT DAILY [facility] Last Admin: 07/15/22 08:21 Dose: 18 unit Insulin Human Lispro (Insulin Lispro 100 Unit/Ml 3 Ml Vial) 0 unit SUBCUT QIDACHS [facility]; Protocol Last Admin: 07/15/22 11:50 Dose: Not Given Lisinopril (Lisinopril 10 Mg Tablet) 10 mg PO DAILY [facility]; Protocol Last Admin: 07/13/22 08:03 Dose: 10 mg Magnesium Oxide (Magnesium Oxide 400 Mg Tablet) 400 mg PO TID [facility] Last Admin: 07/15/22 08:21 Dose: 400 mg Metoprolol Succinate (Metoprolol Succinate Er 25 Mg Tab.Er.24h) 25 mg PO BEDTIME [facility]; Protocol Last Admin: 07/14/22 20:48 Dose: 25 mg Omeprazole (Omeprazole 20 Mg Capsule.Dr) 20 mg PO BID@0630,1630 [facility] Last Admin: 07/15/22 05:52 Dose: 20 mg Ondansetron HCl (Ondansetron Hcl 4 Mg/2 Ml Vial) 4 mg IVPUSH Q8H PRN PRN Reason: Nausea and Vomiting Pharmacy Consult (Consult Rx Perform Med Rec) 1 each MISCELLANE ONCE PRN PRN Reason: Consult order Pharmacy Consult (Consult Rx Vancomycin Dosing) 1 each MISCELLANE DAILY PRN PRN Reason: Consult order Sodium Chloride (0.9 % Sodium Chloride Flush 3 Ml Syringe) 3 ml IVFLUSH QSHIFT [facility] Last Admin: 07/15/22 08:22 Dose: 3 ml Tamsulosin HCl (Tamsulosin Hcl 0.4 Mg Capsule) 0.4 mg PO DAILY@1700 [facility] Last Admin: 07/14/22 16:57 Dose: 0.4 mg Home Medications Medication Instructions Recorded Confirmed Last Taken Type atorvastatin 80 mg tablet 80 mg PO BEDTIME 07/18/20 07/12/22 07/11/22 History insulin glargine 100 unit/mL (3 25 unit subcut DAILY 07/18/20 07/12/22 07/11/22 History mL) subcutaneous pen magnesium oxide 400 mg (241.3 mg 400 mg PO TID 07/18/20 07/12/22 07/11/22 History magnesium) tablet insulin lispro 100 unit/mL See Protocol subcut QIDACHS 07/26/20 07/12/22 07/11/22 History subcutaneous pen (Humalog KwikPen (U-100) Insulin) tamsulosin 0.4 mg capsule (Flomax) 0.4 mg PO DAILY@1700 07/26/20 07/12/22 07/11/22 History omeprazole 20 mg capsule,delayed 20 mg PO BID@0630,1630 01/09/21 07/12/22 07/11/22 History release blood sugar diagnostic #10 ea 02/01/21 05/09/22 07/11/22 History blood-glucose meter #1 ea 02/01/21 05/09/22 07/11/22 History pen needle, diabetic 32 gauge x #50 ea 02/01/21 05/09/22 07/11/22 History docusate sodium 100 mg capsule 100 mg PO DAILY 02/07/22 07/12/22 07/11/22 History (Stool Softener) metoprolol succinate 25 mg 25 mg PO BEDTIME 02/07/22 07/12/22 07/11/22 History tablet,extended release 24 hr (Toprol XL) Lactobacillus acidophilus 10 10,000 mmu cells PO BID 07/12/22 07/12/22 Unknown History billion cell capsule (Probiotic) Physical Exam Vital Signs: Vital Signs: Last Vital Signs Temp 97.0 F 07/15/22 11:26 Pulse 61 07/15/22 11:26 Resp 18 07/15/22 11:26 BP 164/70 H 07/15/22 11:26 Pulse Ox 97 07/15/22 11:26 O2 Del Method 07/15/22 11:26 BMI result Body Mass Index 24.4 Const: General: cooperative HEENT: Head: Yes normal to inspection Face and sinus: Yes normal facial exam Mouth: Normal oral and palatal mucosa present Teeth and gingiva: dentition normal Eyes: General: appearance normal, both eyes and all related structures Pupils: Equal, round and reactive pupils present Resp: Effort & Inspection: normal respiratory effort Cardio: Rate: regular rate Rhythm: regular rhythm GI: Palpation (GI): Soft to palpation and nontender : General: Yes no CVA tenderness Back/Spine/Pelvis: Back: no CVA tenderness Skin: General skin exam: no rashes or lesions noted Neuro: General: moves all extremities Cranial nerves: Yes Equal, round and reactive pupils present Extrem: Other: left foot plantar area some necrosis Psych: Appearance: grossly normal Results Labs CBC & Chem 7: 07/15/22 05:53 07/15/22 05:53 Labs: Short CBC 07/15/22 Range/Units 05:53 WBC 7.1 (4.8-10.8) X10*3/uL Hgb 9.6 L (14.0-18.0) g/dl Hct 29.9 L (42.0-52.0) % Plt Count 151 L (160-400) X10*3/uL BMP 07/15/22 07/15/22 05:53 05:53 Sodium 138 Potassium 4.2 Chloride 106 Carbon Dioxide 23 BUN 22 H Creatinine 1.11 1.12 Calcium 8.3 L Microbiology Microbiology Results: Microbiology 07/12/22 03:57 Blood - Venous Blood Culture - Preliminary No growth after 48 hours. 07/12/22 04:01 Blood - Venous Blood Culture - Preliminary No growth after 48 hours. Assessment and Plan (1) PAD (peripheral artery disease): Status: Acute (2) Non-healing wound: Status: Acute chronic osteomyelitis with acute inflammation/cellulitis/necrosis possible gram negative/gram positive Plan Would continue current antibiotics When improved and no further debridement po Doxycycline 100 mg bid for a month
[2022-07-15 15:44] VITALS: BP 165/85; PULSE 56; RESP 18; TEMP 37.4; O2SAT 94
[2022-07-15] MEDS: Tamsulosin HCL 0.4 MG CAPSULE PO (16:25)
--- NOTE | 2022-07-15 16:48 | PM.PNGS ---
Subjective Subjective Date of Service: 07/15/22 Interval history: Patient denies foot pain, denies new symptoms. Evaluated by Dr. La and awaiting arteriogram on . Physical Exam Vital Signs: Vital Signs: Last Vital Signs Temp 99.4 F 07/15/22 15:44 Pulse 56 07/15/22 15:44 Resp 18 07/15/22 15:44 BP 193/79 H 07/15/22 15:44 Pulse Ox 94 07/15/22 15:44 O2 Del Method 07/15/22 15:44 BMI result Body Mass Index 24.4 Const: General: no acute distress Resp: Effort & Inspection: normal respiratory effort Skin: General skin exam: no rashes or lesions noted Extrem: Other: Left foot ulcer continues to drain foul-smelling discharge. Dressings changed with silver alginate and dry sterile dressings. Objective Data Active Medications Atorvastatin Calcium (Atorvastatin Calcium 80 Mg Tablet) 80 mg PO BEDTIME [facility] Last Admin: 07/14/22 20:45 Dose: 80 mg Documented By: BETHANY Docusate Sodium (Docusate Sodium 100 Mg Capsule) 100 mg PO DAILY PRN PRN Reason: Constipation Docusate Sodium (Docusate Sodium 100 Mg Capsule) 100 mg PO DAILY [facility] Last Admin: 07/15/22 08:22 Dose: Not Given Documented By: KENNETH Non-Admin Reason: loose stools Ezetimibe (Ezetimibe 10 Mg Tablet) 10 mg PO BEDTIME [facility] Last Admin: 07/14/22 20:45 Dose: 10 mg Documented By: BETHANY Cefepime HCl 2 gm/ Sodium (Chloride) 50 mls @ 100 mls/hr IV Q12H [facility] Last Infusion: 07/15/22 13:14 Dose: 0 mls/hr Documented By: KENNETH Vancomycin HCl 1,000 mg/ (Sodium Chloride) 270 mls @ 270 mls/hr IV Q24H [facility] Last Infusion: 07/15/22 09:32 Dose: 0 mls/hr Documented By: KENNETH Insulin Glargine (Insulin Glargine,Hum.Rec.Anlog 100 Unit/Ml 10 Ml Vial) 18 unit SUBCUT DAILY [facility] Last Admin: 07/15/22 08:21 Dose: 18 unit Documented By: KENNETH Insulin Human Lispro (Insulin Lispro 100 Unit/Ml 3 Ml Vial) 0 unit SUBCUT QIDACHS [facility]; Protocol Last Admin: 07/15/22 16:12 Dose: Not Given Documented By: KENNETH Non-Admin Reason: No Insulin Coverage Lisinopril (Lisinopril 10 Mg Tablet) 10 mg PO DAILY [facility]; Protocol Last Admin: 07/13/22 08:03 Dose: 10 mg Documented By: GAVINO Magnesium Oxide (Magnesium Oxide 400 Mg Tablet) 400 mg PO TID [facility] Last Admin: 07/15/22 16:25 Dose: 400 mg Documented By: KENNETH Metoprolol Succinate (Metoprolol Succinate Er 25 Mg Tab.Er.24h) 25 mg PO BEDTIME [facility]; Protocol Last Admin: 07/14/22 20:48 Dose: 25 mg Documented By: BETHANY Omeprazole (Omeprazole 20 Mg Capsule.Dr) 20 mg PO BID@0630,1630 [facility] Last Admin: 07/15/22 16:25 Dose: 20 mg Documented By: KENNETH Ondansetron HCl (Ondansetron Hcl 4 Mg/2 Ml Vial) 4 mg IVPUSH Q8H PRN PRN Reason: Nausea and Vomiting Pharmacy Consult (Consult Rx Perform Med Rec) 1 each MISCELLANE ONCE PRN PRN Reason: Consult order Pharmacy Consult (Consult Rx Vancomycin Dosing) 1 each MISCELLANE DAILY PRN PRN Reason: Consult order Sodium Chloride (0.9 % Sodium Chloride Flush 3 Ml Syringe) 3 ml IVFLUSH QSHIFT [facility] Last Admin: 07/15/22 16:25 Dose: 3 ml Documented By: KENNETH Tamsulosin HCl (Tamsulosin Hcl 0.4 Mg Capsule) 0.4 mg PO DAILY@1700 [facility] Last Admin: 07/15/22 16:25 Dose: 0.4 mg Documented By: KENNETH Labs CBC & Chem 7: 07/15/22 05:53 07/15/22 05:53 Labs: Laboratory Results - last 24 hr 07/15/22 07/15/22 07/15/22 05:53 05:53 05:53 MCV 89.3 MCH 28.7 MCHC 32.1 RDW 14.0 Plt Count 151 L MPV 11.0 Absolute Nucleated RBC 0.000 Nucleated RBC % (auto) 0.0 Anion Gap 13 Estim Creat Clear Calc 64.0 63.5 Estimated GFR > 60 > 60 Random Glucose 142 H Calcium 8.3 L Microbiology Microbiology Results: Microbiology 07/12/22 03:57 Blood Culture - Preliminary Blood - Venous No growth after 48 hours. Procedures Date of Service Date of Service: 07/15/22 Progress Note: A&P Assessment and plan (1) Diabetic foot ulcer: Status: Acute Plan Diabetic ulcer of left foot, awaiting arteriogram on to determine need for additional vascular procedures. Continue local wound care to left foot. Time Spent With Patient Time: Total time spent is greater than 50% in coordination of care (as documented) at patient's floor/unit and/or counseling patient: Quality Stroke Does the patient have a stroke diagnosis?: No VTE Prior VTE?: No VTE Risk Level:: Medical - moderate - high VTE Device Contraindication: Treatment Not Indicated VTE Drug Contraindication: N/A - Med Ordered
[2022-07-15 19:43] VITALS: BP 140/60; PULSE 64; RESP 18; TEMP 36.8; O2SAT 94
[2022-07-15] MEDS: Atorvastatin Calcium 80 MG TABLET PO (21:12)
[2022-07-15] MEDS: Insulin Lispro 100 UNIT/ML 3 ML VIAL SUBCUT (21:12)
[2022-07-15] MEDS: Ezetimibe 10 MG TABLET PO (21:12)
[2022-07-15 23:28] VITALS: BP 147/69; PULSE 54; RESP 16; TEMP 36.8; O2SAT 94
[2022-07-16] MEDS: 0.9 % Sodium Chloride Flush 3 ML SYRINGE IVFLUSH ×3 (00:01→20:42)
[2022-07-16 03:03] VITALS: BP 139/74; PULSE 60; RESP 16; TEMP 36.2; O2SAT 93
[2022-07-16] MEDS: Omeprazole 20 MG CAPSULE.DR PO ×2 (05:39→15:54)
[2022-07-16 06:19] LABS: Anion Gap 13 (12-20); Blood Urea Nitrogen 21 mg/dL (9-16); Calcium 8.5 mg/dL (8.4-10.2); Carbon Dioxide 27 mmol/L (22-29); Chloride 105 mmol/L (96-108); Creatinine Clr Calc Pharmacy 60.7; Estimated Glomerular Filt Rate > 60; Glucose Random 135 mg/dL (60-115); Potassium 4.6 mmol/L (3.3-5.1); Sodium 140 mmol/L (135-145)
[2022-07-16 06:20] LABS: Vancomycin Trough 17.4 mcg/mL (10.0-20.0)
--- NOTE | 2022-07-16 06:57 | HE.PHANOTE ---
RE: juanita Keeping dose at 1000mg Q24H with predicted AUC of 453mg/L; getting another level 07/17/22 @0600. Will continue to montior renal function
--- NOTE | 2022-07-16 07:15 | PC.NURSE ---
Patient uses a free style glucometer. He was given 2units of Insulin Humalog for BS level of 168 @ 9pm 07/15. Tolerated well.
[2022-07-16 07:46] VITALS: BP 153/60; PULSE 58; RESP 12; TEMP 36.3; O2SAT 94
--- NOTE | 2022-07-16 07:57 | PC.NURSE ---
Pt refuses hospital finger stick/POC glucometer, has implanted glucometer. Pt's blood sugar in AM below sliding scale coverage and consistent with random glucose from AM labs.
[2022-07-16] MEDS: Insulin Glargine,Hum.rec.anlog 100 UNIT/ML 10 ML VIAL 18 UNIT SUBCUT (08:23)
[2022-07-16] MEDS: Magnesium Oxide 400 MG TABLET PO ×3 (08:24→20:41)
[2022-07-16 11:29] VITALS: BP 163/70; PULSE 61; RESP 15; TEMP 36.2; O2SAT 95
--- NOTE | 2022-07-16 11:45 | MHC.CM.PN ---
PLAN IS CONTINUE IV ABX AND TRANSITION TO PO BY THURSDAY HOME - SELF CARE IS PLAN.
[2022-07-16] MEDS: Insulin Lispro 100 UNIT/ML 3 ML VIAL SUBCUT ×2 (11:47→20:41)
--- NOTE | 2022-07-16 12:16 | HO.VASCPN ---
Subjective Subjective Date of Service: 07/16/22 Patient reports: no new complaints and feels better Interval history: Very pleasant 72-year-old gentleman presents for follow-up regarding nonhealing left foot ulcer. He has had no interval issues. Reports he is doing fairly well. He has undergone noninvasive testing. He has been off Eliquis for a day now. Physical Exam Vital Signs: Vital Signs: Last Vital Signs Temp 97.2 F 07/16/22 11:29 Pulse 61 07/16/22 11:29 Resp 15 07/16/22 11:29 BP 163/70 H 07/16/22 11:29 Pulse Ox 95 07/16/22 11:29 O2 Del Method 07/16/22 11:29 BMI result Body Mass Index 24.4 Const: General: cooperative, healthy appearing and no acute distress Orientation/consciousness: oriented to person, oriented to place and oriented to time HEENT: Head: Yes normal to inspection Neck: Carotids: no bruits Chest: Chest palpation & inspection: normal inspection of the chest Resp: Effort & Inspection: normal respiratory effort and able to speak in complete sentences Auscultation: clear to auscultation bilaterally Cardio: Rate: regular rate Heart sounds: S1 normal heart sound present and S2 normal heart sound present GI: Inspection: Yes normal to inspection Skin: General skin exam: no rashes or lesions noted Wounds: wounds noted (Left foot wound) Neuro: General: oriented to person, oriented to place, oriented to time and CN's II-XI intact bilaterally Extrem: General: Yes normal to inspection, Yes full ROM and Yes no clubbing, cyanosis or edema Psych: Appearance: grossly normal and well kempt Speech and movement: Normal speech and movement present Affect: normal affect Progress Note: A&P Assessment and plan (1) PAD (peripheral artery disease): Status: Acute Assessment and Plan: Patient notes nonhealing left foot wound. I have discussed the pathophysiology of peripheral vascular disease with the patient. I have also discussed risk factor modification. I have reviewed the patient's arterial testing which reveals SFA disease. the patient would benefit from a left leg endovascular peripheral angiogram with possible angioplasty, stent, and/or atherectomy. This has been discussed in detail with the patient along with risks, benefits, and complications. This includes but is not limited to bleeding, infection, heart attack, need for emergent surgical repair, limb ischemia, blood vessel damage, bleeding, puncture, kidney injury, bruising, allergic reaction, and skin reaction. The patient demonstrates a clear understanding. We will schedule for the next appropriate time. Thank you for allowing us to assist in this patient's care. Time Spent With Patient Time: Total time spent is greater than 50% in coordination of care (as documented) at patient's floor/unit and/or counseling patient: Procedures Date of Service Date of Service: 07/16/22 Quality Stroke Does the patient have a stroke diagnosis?: No VTE Prior VTE?: No VTE Risk Level:: Medical - moderate - high VTE Device Contraindication: Treatment Not Indicated VTE Drug Contraindication: N/A - Med Ordered
[2022-07-16 12:27] VITALS: BP 152/63; PULSE 91; RESP 17; TEMP 36.7; O2SAT 92
--- NOTE | 2022-07-16 13:13 | P.PNIM_ITS ---
Subjective Subjective Date of Service: 07/16/22 Interval History: cc: DFU interval history: improved erythema Cardiovascular Cardiovascular: Reports no additional cardiovascular complaints Respiratory Respiratory: Reports no additional respiratory complaints Physical Exam Vital Signs: Vital Signs: Last Vital Signs Temp 98.1 F 07/16/22 12:27 Pulse 91 07/16/22 12:27 Resp 17 07/16/22 12:27 BP 152/63 H 07/16/22 12:27 Pulse Ox 92 07/16/22 12:27 O2 Del Method 07/16/22 12:27 BMI result Body Mass Index 24.4 Const: General: cooperative, healthy appearing and no acute distress Orientation/consciousness: oriented to person, oriented to place and oriented to time HEENT: Head: Yes normal to inspection Neck: Carotids: no bruits Chest: Chest palpation & inspection: normal inspection of the chest Resp: Effort & Inspection: normal respiratory effort and able to speak in complete sentences Auscultation: clear to auscultation bilaterally Cardio: Rate: regular rate Heart sounds: S1 normal heart sound present and S2 normal heart sound present GI: Inspection: Yes normal to inspection Skin: General skin exam: no rashes or lesions noted Wounds: wounds noted (Left foot wound) Neuro: General: oriented to person, oriented to place, oriented to time and CN's II-XI intact bilaterally Extrem: General: Yes normal to inspection, Yes full ROM and Yes no clubbing, cyanosis or edema Psych: Appearance: grossly normal and well kempt Speech and movement: Normal speech and movement present Affect: normal affect Objective Data Active Medications Atorvastatin Calcium (Atorvastatin Calcium 80 Mg Tablet) 80 mg PO BEDTIME [facility] Last Admin: 07/15/22 21:12 Dose: 80 mg Documented By: BETHANY Docusate Sodium (Docusate Sodium 100 Mg Capsule) 100 mg PO DAILY PRN PRN Reason: Constipation Docusate Sodium (Docusate Sodium 100 Mg Capsule) 100 mg PO DAILY [facility] Last Admin: 07/16/22 08:26 Dose: Not Given Documented By: RACHEL Non-Admin Reason: Patient Refused Ezetimibe (Ezetimibe 10 Mg Tablet) 10 mg PO BEDTIME [facility] Last Admin: 07/15/22 21:12 Dose: 10 mg Documented By: BETHANY Cefepime HCl 2 gm/ Sodium (Chloride) 50 mls @ 100 mls/hr IV Q12H [facility] Last Infusion: 07/16/22 00:51 Dose: 0 mls/hr Documented By: BETHANY Vancomycin HCl 1,000 mg/ (Sodium Chloride) 270 mls @ 270 mls/hr IV Q24H [facility] Last Infusion: 07/15/22 09:32 Dose: 0 mls/hr Documented By: KENNETH Sodium Chloride (Ns) 1,000 mls @ 100 mls/hr IVCONT .Q10H [facility] Insulin Glargine (Insulin Glargine,Hum.Rec.Anlog 100 Unit/Ml 10 Ml Vial) 18 unit SUBCUT DAILY [facility] Last Admin: 07/16/22 08:23 Dose: 18 unit Documented By: RACHLE Insulin Human Lispro (Insulin Lispro 100 Unit/Ml 3 Ml Vial) 0 unit SUBCUT QIDACHS [facility]; Protocol Last Admin: 07/16/22 11:47 Dose: 2 unit Documented By: KENNETH Comments: see nurse's note, pt glucometer 173 Lisinopril (Lisinopril 10 Mg Tablet) 10 mg PO DAILY [facility]; Protocol Last Admin: 07/13/22 08:03 Dose: 10 mg Documented By: GAVINO Magnesium Oxide (Magnesium Oxide 400 Mg Tablet) 400 mg PO TID [facility] Last Admin: 07/16/22 08:24 Dose: 400 mg Documented By: RACHEL Metoprolol Succinate (Metoprolol Succinate Er 25 Mg Tab.Er.24h) 25 mg PO BEDTIME [facility]; Protocol Last Admin: 07/14/22 20:48 Dose: 25 mg Documented By: BETHANY Omeprazole (Omeprazole 20 Mg Capsule.Dr) 20 mg PO BID@0630,1630 [facility] Last Admin: 07/16/22 05:39 Dose: 20 mg Documented By: BETHANY Ondansetron HCl (Ondansetron Hcl 4 Mg/2 Ml Vial) 4 mg IVPUSH Q8H PRN PRN Reason: Nausea and Vomiting Pharmacy Consult (Consult Rx Perform Med Rec) 1 each MISCELLANE ONCE PRN PRN Reason: Consult order Pharmacy Consult (Consult Rx Vancomycin Dosing) 1 each MISCELLANE DAILY PRN PRN Reason: Consult order Sodium Chloride (0.9 % Sodium Chloride Flush 3 Ml Syringe) 3 ml IVFLUSH QSHIFT [facility] Last Admin: 07/16/22 08:24 Dose: 3 ml Documented By: RACHEL Tamsulosin HCl (Tamsulosin Hcl 0.4 Mg Capsule) 0.4 mg PO DAILY@1700 [facility] Last Admin: 07/15/22 16:25 Dose: 0.4 mg Documented By: KENNETH Labs CBC & Chem 7: 07/15/22 05:53 07/16/22 05:24 Labs: Laboratory Results - last 24 hr 07/16/22 07/16/22 07/16/22 05:24 05:24 05:24 Anion Gap 13 Estim Creat Clear Calc 60.7 Cancelled Estimated GFR > 60 Cancelled Random Glucose 135 H Calcium 8.5 Vancomycin Trough 17.4 Assessment and Plan (1) PAD (peripheral artery disease): Status: Acute (2) Gangrene of left foot: Status: Acute (3) Non-healing wound: Status: Acute Plan 71-year-old male with a past medical history of hypertension, hyperlipidemia, diabetes, CAD status post CABG, history right sided HRpEF, history of aortic valve 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 Left foot necrotic ulcer 2/2 type 2 diabetes and PAD with cellulitis XRay showing possible chronic osteo, but showing abscess and sinus tracking General surgery debridement at bedside twice continue IV vanco and cefepime blood cultures negative Vascular studies showing evidence of distal stenosis in Lt SFA to do angiogram 07/17/22 Eliquis held per vascular recommendation, cannot tolerate Lovenox\Heparin for hx of HIT Vascular surgery input appreciated, high risk for amputation chronic osteomyelitis treated with 6 weeks IV ceftriaxone on 01/2022 for osteomyelitis ID appreciated, likely po doxy 1 month on discharge HUGO with baseline CKD stage III likely secondary to dehydration\ATN Cr improved to 1.17 holding lisinopril follow BMP persistent atrial fibrillation rate controlled continue Eliquis continue metoprolol for rate insulin-dependent type 2 diabetes diabetic diet dose adjusted insulin glargine sliding scale continue Jardiance HLD continue statin history of endocarditis with bio AVR hypertension controlled continue furosemide and metoprolol chronic right sided CHF with reduced RV EF, pulm htn Continue lasix DVT prophylaxis mechanical until restarting eliquis (history of HIT) Full code reason for continued hospitalization: angio tomorrow, iv abx for high risk infection Quality Stroke Does the patient have a stroke diagnosis?: No VTE Prior VTE?: No VTE Risk Level:: Medical - moderate - high VTE Device Contraindication: Treatment Not Indicated VTE Drug Contraindication: N/A - Med Ordered
[2022-07-16 14:30] VITALS: BP 171/73; PULSE 53; RESP 20; TEMP 36.6; O2SAT 94
[2022-07-16 15:24] VITALS: BP 177/78; PULSE 55; RESP 20; TEMP 36.8; O2SAT 94
[2022-07-16] MEDS: Tamsulosin HCL 0.4 MG CAPSULE PO (15:54)
[2022-07-16] MEDS: cefEPime HCl 2 GM in 0.9 % Sodium Chloride 50 ML IV (19:36)
[2022-07-16] MEDS: vancomycin HCL 1,000 MG in 0.9 % Sodium Chloride 250 ML 270 MG IV (20:36)
[2022-07-16] MEDS: Metoprolol Succinate ER 25 MG TAB.ER.24H PO (20:41)
[2022-07-16] MEDS: Ezetimibe 10 MG TABLET PO (20:41)
[2022-07-16] MEDS: Atorvastatin Calcium 80 MG TABLET PO (20:42)
[2022-07-17] VITALS (12 sets, daily range): BP systolic 148–188; BP diastolic 49–79; PULSE 47–69; RESP 12–20; TEMP 36–36.6; O2SAT 92–99
[2022-07-17] MEDS: cefEPime HCl 2 GM in 0.9 % Sodium Chloride 50 ML IV ×2 (06:08→18:29)
[2022-07-17] MEDS: Omeprazole 20 MG CAPSULE.DR PO ×2 (06:08→15:52)
[2022-07-17 06:47] LABS: Glucose, Whole Blood 141 mg/dL (60-115)
[2022-07-17 06:51] LABS: Hematocrit 32.9 % (42.0-52.0); Hemoglobin 10.6 g/dl (14.0-18.0); Mean Corpuscular HGB Conc 32.2 g/dl (31.0-36.0); Mean Corpuscular Hemoglobin 28.6 pg (27.0-33.0); Mean Corpuscular Volume 88.7 fL (80.0-98.0); Mean Platelet Volume 10.9 fL (9.4-12.4); Platelet Count 193 X10*3/uL (160-400); Red Blood Count 3.71 X10*6/uL (4.60-5.80); White Blood Count 7.1 X10*3/uL (4.8-10.8)
[2022-07-17 07:13] LABS: Anion Gap 15 (12-20); Blood Urea Nitrogen 21 mg/dL (9-16); Calcium 8.5 mg/dL (8.4-10.2); Carbon Dioxide 25 mmol/L (22-29); Chloride 105 mmol/L (96-108); Creatinine Clr Calc Pharmacy 60.2; Estimated Glomerular Filt Rate > 60; Glucose Fasting 133 mg/dL (60-99); Potassium 4.6 mmol/L (3.3-5.1); Sodium 140 mmol/L (135-145)
--- NOTE | 2022-07-17 09:59 | P.PNIM_ITS ---
Subjective Subjective Date of Service: 07/17/22 Interval History: cc: DFU interval history: improved erythema Cardiovascular Cardiovascular: Reports no additional cardiovascular complaints Respiratory Respiratory: Reports no additional respiratory complaints Physical Exam Vital Signs: Vital Signs: Last Vital Signs Temp 97.3 F 07/17/22 07:11 Pulse 59 07/17/22 07:11 Resp 16 07/17/22 07:11 BP 152/49 H 07/17/22 07:11 Pulse Ox 95 07/17/22 07:11 O2 Del Method 07/17/22 07:11 BMI result Body Mass Index 24.4 Const: General: cooperative, healthy appearing and no acute distress Orientation/consciousness: oriented to person, oriented to place and oriented to time HEENT: Head: Yes normal to inspection Neck: Carotids: no bruits Chest: Chest palpation & inspection: normal inspection of the chest Resp: Effort & Inspection: normal respiratory effort and able to speak in complete sentences Auscultation: clear to auscultation bilaterally Cardio: Rate: regular rate Heart sounds: S1 normal heart sound present and S2 normal heart sound present GI: Inspection: Yes normal to inspection Skin: General skin exam: no rashes or lesions noted Wounds: wounds noted (Left foot wound) Neuro: General: oriented to person, oriented to place, oriented to time and CN's II-XI intact bilaterally Extrem: General: Yes normal to inspection, Yes full ROM and Yes no clubbing, cyanosis or edema Psych: Appearance: grossly normal and well kempt Speech and movement: Normal speech and movement present Affect: normal affect Objective Data Active Medications Atorvastatin Calcium (Atorvastatin Calcium 80 Mg Tablet) 80 mg PO BEDTIME [facility] Last Admin: 07/16/22 20:42 Dose: 80 mg Documented By: LIO Docusate Sodium (Docusate Sodium 100 Mg Capsule) 100 mg PO DAILY PRN PRN Reason: Constipation Docusate Sodium (Docusate Sodium 100 Mg Capsule) 100 mg PO DAILY [facility] Last Admin: 07/16/22 08:26 Dose: Not Given Documented By: RACHEL Non-Admin Reason: Patient Refused Ezetimibe (Ezetimibe 10 Mg Tablet) 10 mg PO BEDTIME [facility] Last Admin: 07/16/22 20:41 Dose: 10 mg Documented By: LIO Sodium Chloride (Ns) 1,000 mls @ 100 mls/hr IVCONT .Q10H [facility] Cefepime HCl 2 gm/ Sodium (Chloride) 50 mls @ 100 mls/hr IV Q12H [facility] Last Infusion: 07/17/22 06:40 Dose: 0 mls/hr Documented By: LIO Vancomycin HCl 1,000 mg/ (Sodium Chloride) 270 mls @ 270 mls/hr IV Q24H [facility] Last Infusion: 07/16/22 21:43 Dose: 0 mls/hr Documented By: LIO Insulin Glargine (Insulin Glargine,Hum.Rec.Anlog 100 Unit/Ml 10 Ml Vial) 18 unit SUBCUT DAILY [facility] Last Admin: 07/16/22 08:23 Dose: 18 unit Documented By: RACHEL Insulin Human Lispro (Insulin Lispro 100 Unit/Ml 3 Ml Vial) 0 unit SUBCUT QIDACHS [facility]; Protocol Last Admin: 07/16/22 20:41 Dose: 2 unit Documented By: LIO Lisinopril (Lisinopril 10 Mg Tablet) 10 mg PO DAILY [facility]; Protocol Last Admin: 07/13/22 08:03 Dose: 10 mg Documented By: GAVINO Magnesium Oxide (Magnesium Oxide 400 Mg Tablet) 400 mg PO TID [facility] Last Admin: 07/16/22 20:41 Dose: 400 mg Documented By: LIO Metoprolol Succinate (Metoprolol Succinate Er 25 Mg Tab.Er.24h) 25 mg PO BEDTIME [facility]; Protocol Last Admin: 07/16/22 20:41 Dose: 25 mg Documented By: LIO Omeprazole (Omeprazole 20 Mg Capsule.) 20 mg PO BID@0630,1630 [facility] Last Admin: 07/17/22 06:08 Dose: 20 mg Documented By: LIO Ondansetron HCl (Ondansetron Hcl 4 Mg/2 Ml Vial) 4 mg IVPUSH Q8H PRN PRN Reason: Nausea and Vomiting Pharmacy Consult (Consult Rx Perform Med Rec) 1 each MISCELLANE ONCE PRN PRN Reason: Consult order Pharmacy Consult (Consult Rx Vancomycin Dosing) 1 each MISCELLANE DAILY PRN PRN Reason: Consult order Sodium Chloride (0.9 % Sodium Chloride Flush 3 Ml Syringe) 3 ml IVFLUSH QSHIFT [facility] Last Admin: 07/16/22 20:42 Dose: 3 ml Documented By: LIO Tamsulosin HCl (Tamsulosin Hcl 0.4 Mg Capsule) 0.4 mg PO DAILY@1700 [facility] Last Admin: 07/16/22 15:54 Dose: 0.4 mg Documented By: KENNETH Labs CBC & Chem 7: 07/17/22 06:12 07/17/22 05:48 Labs: Laboratory Results - last 24 hr 07/17/22 07/17/22 07/17/22 05:48 06:12 06:43 MCV 88.7 MCH 28.6 MCHC 32.2 RDW 14.0 Plt Count 193 D MPV 10.9 Absolute Nucleated RBC 0.000 Nucleated RBC % (auto) 0.0 Anion Gap 15 Estim Creat Clear Calc 60.2 Estimated GFR > 60 POC Glucose 141 H Fasting Glucose 133 H Calcium 8.5 Microbiology Microbiology Results: Microbiology 07/12/22 04:01 Blood Culture - Final Blood - Venous No growth after 5 days. Assessment and Plan (1) PAD (peripheral artery disease): Status: Acute (2) Gangrene of left foot: Status: Acute (3) Non-healing wound: Status: Acute Plan 71-year-old male with a past medical history of hypertension, hyperlipidemia, diabetes, CAD status post CABG, history right sided HRpEF, history of aortic valve 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 Left foot necrotic ulcer 2/2 type 2 diabetes and PAD with cellulitis XRay showing possible chronic osteo, but showing abscess and sinus tracking General surgery debridement at bedside twice continue IV vanco and cefepime blood cultures negative Vascular studies showing evidence of distal stenosis in Lt SFA to do angiogram today 07/17/22 Eliquis held per vascular recommendation, cannot tolerate Lovenox\Heparin for hx of HIT Vascular surgery input appreciated, high risk for amputation chronic osteomyelitis treated with 6 weeks IV ceftriaxone on 01/2022 for osteomyelitis ID appreciated, likely po doxy 1 month on discharge HUGO with baseline CKD stage III likely secondary to dehydration\ATN Cr improved to 1.17 holding lisinopril follow BMP persistent atrial fibrillation rate controlled continue Eliquis continue metoprolol for rate insulin-dependent type 2 diabetes diabetic diet dose adjusted insulin glargine sliding scale continue Jardiance HLD continue statin history of endocarditis with bio AVR hypertension controlled continue furosemide and metoprolol chronic right sided CHF with reduced RV EF, pulm htn Continue lasix DVT prophylaxis mechanical until restarting eliquis (history of HIT) Full code reason for continued hospitalization: angio tomorrow, iv abx for high risk infection Quality Stroke Does the patient have a stroke diagnosis?: No VTE Prior VTE?: No VTE Risk Level:: Medical - moderate - high VTE Device Contraindication: Treatment Not Indicated VTE Drug Contraindication: N/A - Med Ordered
[2022-07-17] MEDS: iohexoL 300 MG/ML 100 ML INFUS..BTL IV (10:11)
--- NOTE | 2022-07-17 10:44 | W.PM.OPN ---
Operative Note Operative Note Date of Service: 07/17/22 Narrative: Angiogram report from [facility] Preoperative diagnosis: Atherosclerosis of left lower extremity with nonhealing ulcer Postoperative diagnosis: Same Procedure: 1. Ultrasound-guided right common femoral access 2. Aortogram with left lower extremity runoff 3. Left peroneal plasty 4. Left SFA atherectomy and plasty Surgeon:Jaspreet La M.D., FACS, RPVI Shell Worker:None Anesthesia: Local with moderate conscious sedation. Total intraservice moderate sedation time was 89 minutes. I monitored the patient's level of consciousness and physiologic status continuously throughout the procedure. Specimens:none Drains:none Estimated blood loss: Less than 10 ml Implant: [employer]tronic Impact DCB 4 x 40 and 6 x 40 Indications: Very pleasant 72-year-old gentleman presents for nonhealing left foot ulcer. He has had noninvasive testing concerning for SFA disease. He now presents for endovascular intervention The patient has signed the informed consent after reviewing risks, complications, benefits, and alternatives previously discussed with the patient. The patient was given the opportunity to ask any additional questions or voice any concerns. All questions were answered to the patient's satisfaction. Procedure in detail: Patient was brought to the angiography suite prior to which a time-out was called for patient identification and site verification. Bilateral groins were prepped and draped in the standard surgical fashion. Under ultrasound guidance right common femoral was punctured with micro puncture needle and wire. Subsequently a precision 4 [place]err[place]ian sheath was then placed. Bentson wire was advanced to the level of the aorta. 4 [place]ian Flush catheter was brought up and parked at the level of the renal arteries. Aortogram was then undertaken. Catheter was brought down to the level of the iliac bifurcation. Iliacs were subsequently imaged. Catheter was then brought in up and over to the left side SFA. Runoff study was then undertaken. At this time he was recognized to have a lesion the SFA and peroneal artery. We then administered [id number] mcg of argatroban. The patient has a documented prior history of hit so this was decided to be used. Once this was accomplished after 5 minutes of circulation time we advanced a Glidewire Advantage up and over into the left lower extremity. We placed an up and over 6 [place]erratian sheath. We 1st are turned our attention to the below-knee peroneal area. We exchanged out for a spider wire. Over this we 1st plasty the peroneal and tibioperoneal trunk with a 3 x 40 regular balloon. This was subsequently followed by a 4 x 40 drug coated balloon. This was brought into position in under 3 minutes and insufflated for a total of 3 minutes in duration. Once this was accomplished we noticed a lesion in the mid to distal SFA. We underwent atherectomy over the spider wire using a Hawk 1 unidirectional device. Multiple unidirectional classes were undertaken. Once this was accomplished we plasty this area with a 6 x 40 balloon. Completion angiogram demonstrated excellent result. Catheter wire sheath was brought back to the ipsilateral side. StarClose closure device was deployed. Patient tolerated the procedure well. Interpretation of films: 1. Ultrasound demonstrates appropriate femoral puncture. Image of which was saved. 2. Aortogram demonstrates appropriate caliber aorta. Minimal disease. Appropriate take-off of the renals. 3. Iliac images demonstrate no significant disease 4. Left Leg Common femoral artery: No significant disease Profundus Femoris: No significant disease Superficial femoral artery: High-grade stenosis at Jeremy's canal Popliteal artery (p1,p2,p3): No significant disease Anterior tibial artery: Occluded Peroneal artery: High-grade stenosis at origin and then good runoff Posterior tibial artery: Dominant runoff Dorsalis pedis/plantar arch: Nearly complete and present Conclusion: 1. Successful atherectomy and plasty of left SFA and left peroneal artery 2. Anticoagulation status: Continue with aspirin and may resume Eliquis starting tomorrow This note is constructed using voice recognition software. While every effort has been made to ensure accuracy, theatre arts professor errors may have been included. Thank you for allowing me to participate in the care of your patient. Yours sincerely, Jaspreet La MD, FACS, R.P.V.I.
[2022-07-17] MEDS: Insulin Glargine,Hum.rec.anlog 100 UNIT/ML 10 ML VIAL 18 UNIT SUBCUT (13:37)
[2022-07-17] MEDS: Magnesium Oxide 400 MG TABLET PO ×2 (15:52→19:37)
[2022-07-17] MEDS: Tamsulosin HCL 0.4 MG CAPSULE PO (15:52)
[2022-07-17] MEDS: 0.9 % Sodium Chloride Flush 3 ML SYRINGE IVFLUSH ×2 (15:52→19:29)
--- NOTE | 2022-07-17 16:22 | MHC.CM.PN ---
PLAN IS ANGIO TODAY AND DC THURSDAY ON PO ABX
[2022-07-17 18:44] LABS: Vancomycin Random 16.4 mcg/mL (15-20)
--- NOTE | 2022-07-17 18:52 | HE.PHANOTE ---
[facility] CONTINUE CURRENT ORDER, NEXT TROUGH 07/19 @1800 BRENNAN
[2022-07-17] MEDS: vancomycin HCL 1,000 MG in 0.9 % Sodium Chloride 250 ML 270 MG IV (19:34)
[2022-07-17] MEDS: Metoprolol Succinate ER 25 MG TAB.ER.24H PO (19:36)
[2022-07-17] MEDS: Ezetimibe 10 MG TABLET PO (19:37)
[2022-07-17] MEDS: Atorvastatin Calcium 80 MG TABLET PO (19:37)
[2022-07-18 03:47] VITALS: BP 132/52; PULSE 77; RESP 17; TEMP 36; O2SAT 95
[2022-07-18] MEDS: cefEPime HCl 2 GM in 0.9 % Sodium Chloride 50 ML IV (06:10)
[2022-07-18] MEDS: Omeprazole 20 MG CAPSULE.DR PO ×2 (06:12→16:31)
[2022-07-18 07:08] LABS: Creatinine Clr Calc Pharmacy 57.8; Estimated Glomerular Filt Rate 58
[2022-07-18 07:28] VITALS: BP 173/78; PULSE 52; RESP 20; TEMP 36.1; O2SAT 94
[2022-07-18] MEDS: Docusate Sodium 100 MG CAPSULE PO (08:40)
[2022-07-18] MEDS: Magnesium Oxide 400 MG TABLET PO ×2 (08:40→16:32)
[2022-07-18] MEDS: Insulin Glargine,Hum.rec.anlog 100 UNIT/ML 10 ML VIAL 18 UNIT SUBCUT (08:40)
[2022-07-18] MEDS: 0.9 % Sodium Chloride Flush 3 ML SYRINGE IVFLUSH (08:41)
--- NOTE | 2022-07-18 09:12 | HE.PHANOTE ---
Vanco dosing Trough due on 07/19/22 at 1800. Scr stable at 1.23 and dosing continued at 1000 mg every 24 hours.
--- NOTE | 2022-07-18 10:01 | PM.DS ---
DS: Providers Provider Date of Service: 07/18/22 Date of admission: 07/12/22 11:07 Primary care physician: Nicolás Rai MD Consults: 07/12/22 11:04 Consult to General Surgery Routine Consulting Provider: Adan Badillo Reason for consultation: dm foot infection with necrosis/gangrene 07/12/22 12:49 Consult to Infectious Diseases Routine Consulting Provider: Tequila Kang Reason for consultation: chronic osteo 07/12/22 15:45 Consult to Vascular Surgery Routine Consulting Provider: Jaspreet La Reason for consultation: LLE diabetic foot ulcer, PAD for eval DS: Diagnosis Discharge Diagnosis (1) PAD (peripheral artery disease): Status: Acute (2) Gangrene of left foot: Status: Acute (3) Non-healing wound: Status: Acute DS: Summary Hospital Course Hospital Course: from initial hpi: 71-year-old male with a past medical history of hypertension, hyperlipidemia, diabetes, CAD status post CABG, 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 He has a history of recurrent bacteremia and states he wanted to be proactive.? He states the wound on his right foot did heal fully over the summer but then recurred again 3 weeks ago.? He has been following with [facility] care and using Aquacel as well as Puracol plus.? On arrival patient is hemodynamically stable.? No leukocytosis.? Stable normocytic anemia with H/H 10.8/33.9%.? Creatinine 1.66, BUN 38 (baseline 1.09, 20 respectively).? CRP 15.16, ESR pending.? BNP baseline at 04:34.? Procalcitonin 0.18.? X-ray left foot showing chronic wound/ulcer along lateral midfoot with defects within the lateral aspect of the 4th metatarsal base it is seen on prior MRI related to abscess or sinus tract communicating with 4th metatarsal.? No increased osseous destruction changes since prior MRI though chronic osteomyelitis of the 4th metatarsal is possible.? Given empiric doses of Zosyn and vancomycin in the ED, blood cultures pending. hospital course: Patient was admitted for left foot necrotic ulcer secondary to diabetes type 2 and peripheral arterial disease with cellulitis. Patient underwent debridement at bedside by General surgery twice. He was treated with vancomycin cefepime. Blood cultures were negative. Vascular studies showed distal stenosis of left SFA. He underwent angiogram on 07/17/2022 with stent placement. He will restart Eliquis on discharge. He was seen by infectious disease recommended 1 month of doxycycline p.o.. Course complicated by acute kidney injury on CKD 3. Patient improved to baseline with hydration. For patient's persistent atrial fibrillation his rate was controlled with metoprolol. He will restart Eliquis. For diabetes type 2 he was treated with insulin and Jardiance. For hyperlipidemia is continue on statin. For hypertension he was continued on metoprolol. For his chronic right-sided CHF with reduced right ventricular ejection fraction pulmonary hypertension he was continued on Lasix. Patient is feeling better only discharged on. Time Spent with Patient Time attestation: Total time spent providing and/or coordinating discharge services: Discharge coordination time: Greater than 30 minutes Quality: Safe Use of Opioids Does Pt have an Active Cancer Diagnosis on the Problem List?: No Quality: Stroke Does the patient have a stroke diagnosis?: No Physical Exam Vital Signs: Vital Signs: Last Vital Signs Temp 97.0 F 07/18/22 07:28 Pulse 52 07/18/22 07:28 Resp 20 07/18/22 07:28 BP 173/78 H 07/18/22 07:28 Pulse Ox 94 07/18/22 07:28 O2 Del Method 07/18/22 07:28 O2 Flow Rate 2 07/17/22 11:55 BMI result Body Mass Index 24.4 Const: General: cooperative, healthy appearing and no acute distress Orientation/consciousness: oriented to person, oriented to place and oriented to time HEENT: Head: Yes normal to inspection Neck: Carotids: no bruits Chest: Chest palpation & inspection: normal inspection of the chest Resp: Effort & Inspection: normal respiratory effort and able to speak in complete sentences Auscultation: clear to auscultation bilaterally Cardio: Rate: regular rate Heart sounds: S1 normal heart sound present and S2 normal heart sound present GI: Inspection: Yes normal to inspection Skin: General skin exam: no rashes or lesions noted Wounds: wounds noted (Left foot wound) Neuro: General: oriented to person, oriented to place, oriented to time and CN's II-XI intact bilaterally Extrem: General: Yes normal to inspection, Yes full ROM and Yes no clubbing, cyanosis or edema Psych: Appearance: grossly normal and well kempt Speech and movement: Normal speech and movement present Affect: normal affect DS: Data Data Completed and Pending Completed studies during hospitalization [Text1]: Procedures Insertion of Infusion Device into Right Atrium, Percutaneous Approach (09/15/21) Insertion of Infusion Device into Superior Vena Cava, Percutaneous Approach (02/07/22) Introduction of Vasopressor into Peripheral Vein, Percutaneous Approach (09/15/21) Ultrasonography of Superior Vena Cava, Guidance (02/07/22) Labs on day of discharge: Laboratory Results - last 24 hr 07/17/22 07/18/22 18:01 06:21 Creatinine 1.23 Estim Creat Clear Calc 57.8 Estimated GFR 58 Random Vancomycin 16.4 Discharge Plan Discharge Anticipated Discharge Date/Time: 07/18/22 09:57 Patient Disposition: Home, Self-Care Discharge Diagnosis: DFU Referrals: Nicolás Rai MD [Primary Care Provider] - 1 Week Discharge Medications: New doxycycline hyclate 100 mg capsule 100 mg PO BID Qty: 56 0RF Continued insulin lispro [Humalog KwikPen Insulin] 100 unit/mL insulin pen See Protocol subcut [facility] Protocol: Insulin Correction Scale Less than or equal to 110 ---- Give (units): 0 111 to 150 Give (units): 0 151 to 200 Give (units): 2 201 to 250 Give (units): 4 251 to 300 Give (units): 6 301 to 350 Give (units): 8 Greater than 350 Give (units): 10 Call if Blood Glucose > : 350 tamsulosin [Flomax] 0.4 mg capsule 0.4 mg PO DAILY@1700 ezetimibe [Zetia] 10 mg tablet 10 mg PO BEDTIME Qty: 90 3RF Eliquis 5 mg tablet 5 mg PO BID Qty: 60 3RF lisinopril 10 mg tablet 10 mg PO DAILY Qty: 90 3RF docusate sodium [Stool Softener] 100 mg Capsule 100 mg PO DAILY metoprolol succinate [Toprol XL] 25 mg tablet extended release 24 hr 25 mg PO BEDTIME Probiotic 10 billion cell Capsule 10,000 mmu cells PO BID atorvastatin 80 mg tablet 80 mg PO BEDTIME magnesium oxide 400 mg (241.3 mg magnesium) tablet 400 mg PO TID insulin glargine 100 unit/mL (3 mL) insulin pen 25 unit subcut DAILY (DME) blood sugar diagnostic Strip See Rx Instructions Not Applicable QID Qty: 10 Rx Instructions: As directed (DME) blood-glucose meter Kit See Rx Instructions .ROUTE QID Qty: 1 Rx Instructions: As directed (DME) pen needle, diabetic 32 gauge x 5/32 needle See Rx Instructions .ROUTE .MEDSUPPLY Qty: 50 Rx Instructions: As directed omeprazole 20 mg capsule,delayed release(DR/EC) 20 mg PO BID@0630,1630 furosemide [Lasix] 40 mg tablet 40 mg PO DAILY Qty: 90 3RF Discharge Orders: Discharge Order (Routine); Ordered 07/18/22 Ordered By: Pan Nunez Diet: Diabetic diet Activity on Discharge: As tolerated Stand Alone Forms: Patient Portal Discharge page Care Plan Goals: recovery Health Concerns: DFU Plan of Treatment: 1 month doxy, local wound care Assessment: see above
--- NOTE | 2022-07-18 10:08 | MHC.CM.PN ---
PT CLEARED TO DC HOME TODAY WITH NO SERVICES TO TRANSPORT
--- NOTE | 2022-07-18 11:01 | P.PNVS_ITS ---
Subjective Subjective Date of Service: 07/18/22 Patient reports: no new complaints and feels better Interval history: Very pleasant 72-year-old gentleman status post angiogram. Reports to be doing relatively well. No interval issues overnight. Reports that the foot does feel warmer. Now for routine follow-up. Physical Exam Vital Signs: Vital Signs: Last Vital Signs Temp 97.0 F 07/18/22 07:28 Pulse 52 07/18/22 07:28 Resp 20 07/18/22 07:28 BP 173/78 H 07/18/22 07:28 Pulse Ox 94 07/18/22 07:28 O2 Del Method 07/18/22 07:28 O2 Flow Rate 2 07/17/22 11:55 BMI result Body Mass Index 24.4 Const: General: cooperative, healthy appearing and no acute distress Orientation/consciousness: oriented to person, oriented to place and oriented to time HEENT: Head: Yes normal to inspection Neck: Carotids: no bruits Chest: Chest palpation & inspection: normal inspection of the chest Resp: Effort & Inspection: normal respiratory effort and able to speak in complete sentences Auscultation: clear to auscultation bilaterally Cardio: Rate: regular rate Heart sounds: S1 normal heart sound present and S2 normal heart sound present GI: Inspection: Yes normal to inspection Skin: Other: Plantar aspect of left foot wound open General skin exam: no rashes or lesions noted Wounds: no wounds Neuro: General: oriented to person, oriented to place, oriented to time and CN's II-XI intact bilaterally Extrem: General: Yes normal to inspection, Yes full ROM and Yes no clubbing, cyanosis or edema Psych: Appearance: grossly normal and well kempt Speech and movement: Normal speech and movement present Affect: normal affect Progress Note: A&P Assessment and plan (1) PAD (peripheral artery disease): Status: Acute Assessment and Plan: Patient has done well from an endovascular intervention standpoint. Can read zoom Eliquis. He can follow up with us as an outpatient. He has established care with Dr. Yousif at [facility]. Should he elect to follow-up with him we will forward records. Thank you for allowing us to assist in his care. (2) Non-healing wound: Status: Acute Assessment and Plan: He does have a Charcot deformity of the foot and a nonhealing ulcer. We did discuss the importance of offloading and local wound care. Should it continue to progress he is at risk for amputation. This was discussed with the patient. Once again he can follow up with us as an outpatient if he elects to follow-up at [facility] happy to forward our records. Thank you for allowing us to assist in his care. Time Spent With Patient Time: Total time spent is greater than 50% in coordination of care (as documented) at patient's floor/unit and/or counseling patient: Procedures Date of Service Date of Service: 07/18/22 Quality Stroke Does the patient have a stroke diagnosis?: No VTE Prior VTE?: No VTE Risk Level:: Medical - moderate - high VTE Device Contraindication: Treatment Not Indicated VTE Drug Contraindication: N/A - Med Ordered
[2022-07-18 11:18] VITALS: BP 177/82; PULSE 77; RESP 20; TEMP 35.8; O2SAT 97
[2022-07-18 15:35] VITALS: BP 180/80; PULSE 52; RESP 17; TEMP 36.4; O2SAT 95
[2022-07-18] MEDS: Insulin Lispro 100 UNIT/ML 3 ML VIAL SUBCUT (16:30)
[2022-07-18] MEDS: Tamsulosin HCL 0.4 MG CAPSULE PO (16:32)
== END 2022-07-18 17:20 | disposition home or self-care (01) | DRG 270 ==
LOC: HO.ED 07-12 06:03 → HO.EDOVER 07-12 11:20 → HO.S3 07-12 17:41
PROVIDERS: Student in an Organized Health Care Education/Training Program; Surgery Vascular Surgery; Admitting Provider Physician Assistant; Emergency Provider Student in an Organized Health Care Education/Training Program; PCP Internal Medicine; Visit Provider Internal Medicine
PROC: 04CU3ZZ Extirpation of Matter from Left Peroneal Artery, Percutaneous Approach (ICD-10-PCS; principal; 2022-07-17 07:30)
DX: E11.52 Type 2 diabetes mellitus with diabetic peripheral angiopathy with gangrene (principal); N17.0 Acute kidney failure with tubular necrosis; L97.429 Non-pressure chronic ulcer of left heel and midfoot with unspecified severity; I70.262 Atherosclerosis of native arteries of extremities with gangrene, left leg; I48.19 Other persistent atrial fibrillation; I87.312 Chronic venous hypertension (idiopathic) with ulcer of left lower extremity; L03.116 Cellulitis of left lower limb; M86.672 Other chronic osteomyelitis, left ankle and foot; I50.32 Chronic diastolic (congestive) heart failure; I13.0 Hypertensive heart and chronic kidney disease with heart failure and stage 1 through stage 4 chronic kidney disease, or unspecified chronic kidney disease; Z87.891 Personal history of nicotine dependence; Z95.2 Presence of prosthetic heart valve; Z95.5 Presence of coronary angioplasty implant and graft; E78.5 Hyperlipidemia, unspecified; E03.9 Hypothyroidism, unspecified; E11.621 Type 2 diabetes mellitus with foot ulcer; I50.812 Chronic right heart failure; E11.628 Type 2 diabetes mellitus with other skin complications; E11.69 Type 2 diabetes mellitus with other specified complication; N18.30 Chronic kidney disease, stage 3 unspecified; I27.20 Pulmonary hypertension, unspecified; E11.22 Type 2 diabetes mellitus with diabetic chronic kidney disease; Z20.822 Contact with and (suspected) exposure to COVID-19; Z88.2 Allergy status to sulfonamides; Z88.6 Allergy status to analgesic agent; Z88.8 Allergy status to other drugs, medicaments and biological substances; Z79.4 Long term (current) use of insulin; Z79.01 Long term (current) use of anticoagulants; Z79.899 Other long term (current) drug therapy
CPT/HCPCS: 36415; 37225; 37229; 73630; 76937; 80048; 80053; 80202; 81001; 82248; 82565; 82947; 83605; 83690; 83880; 84145; 85025; 85027; 85610; 85652; 86140; 87040; 87502; 87635; 93923; 93925; 99152; 99153; 99285; C1714; C1725; C1760; C1769; C1884; C1887; C2623; J0692; J2543; J3370; Q9967

== ENCOUNTER 2022-08-26 16:00 | Outpatient (REF) | payer MEDICARE, SELFPAY ==
[2022-08-26 16:09] LABS: MANUAL DIFF FLAG NO
[2022-08-26 16:21] LABS: Basophils Absolute Auto 0.1 X10*3/uL (0.0-0.2); Basophils Percent Auto 0.8 % (0-2); Eosinophils Absolute Auto 0.3 X10*3/uL (0.0-0.4); Eosinophils Percent Auto 4.1 % (0-4); Hematocrit 32.9 % (42.0-52.0); Hemoglobin 10.2 g/dl (14.0-18.0); Imm Gran Abs Auto 0.02 X10*3/uL (0.00-0.03); Imm Gran Pct Auto 0.3 % (0.0-0.4); Lymphocytes Absolute Auto 0.9 X10*3/uL (1.2-4.9); Lymphocytes Percent Auto 11.4 % (20-40); Mean Corpuscular Hemoglobin 27.6 pg (27.0-33.0); Mean Corpuscular Volume 88.9 fL (80.0-98.0); Mean Platelet Volume 11.8 fL (9.4-12.4); Monocytes Absolute Auto 0.5 X10*3/uL (0.1-1.2); Monocytes Percent Auto 6.5 % (2-11); Neutrophils Absolute Auto 5.8 x10*3/uL (2.0-8.3); Neutrophils Percent Auto 76.9 % (45-73); Platelet Count 184 X10*3/uL (160-400); Red Cell Distribution Width 14.8 % (11.0-16.0); White Blood Count 7.6 X10*3/uL (4.8-10.8)
[2022-08-26 16:27] LABS: Blood Urea Nitrogen 44 mg/dL (9-16); Estimated Glomerular Filt Rate 48
== END 2022-08-26 16:01 | disposition home or self-care (01) ==
LOC: HO.LNP 16:00
PROVIDERS: Visit Provider Internal Medicine
DX: N18.9 Chronic kidney disease, unspecified (principal)
CPT/HCPCS: 82565; 84520; 85025

== ENCOUNTER → 2022-10-01 07:54 | Outpatient (BNVA) | payer MEDICARE, SELFPAY | PROVIDERS: PCP Internal Medicine; Referring Provider Internal Medicine; Visit Provider Internal Medicine | DX: I13.0 Hypertensive heart and chronic kidney disease with heart failure and stage 1 through stage 4 chronic kidney disease, or unspecified chronic kidney disease (principal); E11.22 Type 2 diabetes mellitus with diabetic chronic kidney disease; N18.9 Chronic kidney disease, unspecified; I50.812 Chronic right heart failure; I48.19 Other persistent atrial fibrillation; E78.5 Hyperlipidemia, unspecified; K92.2 Gastrointestinal hemorrhage, unspecified; Z95.3 Presence of xenogenic heart valve; Z95.1 Presence of aortocoronary bypass graft | CPT/HCPCS: 99212 ==

== ENCOUNTER 2022-10-18 10:58 | Outpatient (REF) | payer MEDICARE, SELFPAY ==
[2022-10-18 12:05] LABS: Blood Urea Nitrogen 54 mg/dL (9-16); Estimated Glomerular Filt Rate 39
== END 2022-10-18 10:59 | disposition home or self-care (01) ==
LOC: HO.LAB 10:58
PROVIDERS: PCP Internal Medicine; Visit Provider Internal Medicine
DX: N18.9 Chronic kidney disease, unspecified (principal)
CPT/HCPCS: 36415; 82565; 84520

== ENCOUNTER 2022-10-25 07:55 | Outpatient (REF) | payer MEDICARE, SELFPAY ==
[2022-10-25 08:10] LABS: MANUAL DIFF FLAG NO
[2022-10-25 08:55] LABS: Basophils Absolute Auto 0.1 X10*3/uL (0.0-0.2); Eosinophils Absolute Auto 0.3 X10*3/uL (0.0-0.4); Eosinophils Percent Auto 3.4 % (0-4); Hematocrit 35.7 % (42.0-52.0); Hemoglobin 10.6 g/dl (14.0-18.0); Imm Gran Abs Auto 0.02 X10*3/uL (0.00-0.03); Imm Gran Pct Auto 0.2 % (0.0-0.4); Lymphocytes Absolute Auto 1.1 X10*3/uL (1.2-4.9); Lymphocytes Percent Auto 11.9 % (20-40); Mean Corpuscular HGB Conc 29.7 g/dl (31.0-36.0); Mean Corpuscular Hemoglobin 25.1 pg (27.0-33.0); Mean Corpuscular Volume 84.4 fL (80.0-98.0); Monocytes Absolute Auto 0.8 X10*3/uL (0.1-1.2); Monocytes Percent Auto 8.5 % (2-11); Neutrophils Absolute Auto 7.2 x10*3/uL (2.0-8.3); Platelet Count 214 X10*3/uL (160-400); Red Blood Count 4.23 X10*6/uL (4.60-5.80); Red Cell Distribution Width 15.6 % (11.0-16.0); White Blood Count 9.6 X10*3/uL (4.8-10.8)
[2022-10-25 09:17] LABS: Creatinine Urine 127.33 mg/dL; Protein/Creatinine Ratio, Ur 0.35 (<0.2); Total Protein Urine Random 44 mg/dL (<12)
[2022-10-25 09:27] LABS: Alanine Aminotransferase 33 U/L (0-40); Albumin Level 3.7 g/dL (3.5-5.0); Alkaline Phosphatase 200 U/L (39-117); Anion Gap 18 (12-20); Aspartate Amino Transferase 25 U/L (5-37); Bilirubin Total 0.7 mg/dL (0.0-1.0); Blood Urea Nitrogen 42 mg/dL (9-16); Calcium 9.4 mg/dL (8.4-10.2); Carbon Dioxide 23 mmol/L (22-29); Chloride 101 mmol/L (96-108); Estimated Glomerular Filt Rate 40; Glucose Random 257 mg/dL (60-115); Magnesium 1.7 mg/dL (1.6-2.6); Phosphorus 3.4 mg/dL (2.7-4.5); Potassium 4.2 mmol/L (3.3-5.1); Sodium 138 mmol/L (135-145); Total Protein 8.3 g/dL (6.5-8.0); Uric Acid 8.6 mg/dL (3.4-7.0)
[2022-10-27 15:44] LABS: Calcium (PTHI) 9.4 mg/dL (8.6-10.3); PTHI 67 pg/mL (16-77)
== END 2022-10-25 07:56 | disposition home or self-care (01) ==
LOC: HO.LAB 07:55
PROVIDERS: PCP Internal Medicine; Visit Provider Internal Medicine Nephrology
DX: N18.32 Chronic kidney disease, stage 3b (principal); E11.69 Type 2 diabetes mellitus with other specified complication; N40.0 Benign prostatic hyperplasia without lower urinary tract symptoms; Z95.2 Presence of prosthetic heart valve
CPT/HCPCS: 36415; 80053; 82306; 83735; 83970; 84100; 84156; 84550; 85025

== ENCOUNTER 2022-12-13 08:27 | Outpatient (REF) | payer MEDICARE, SELFPAY ==
[2022-12-13 08:42] LABS: MANUAL DIFF FLAG NO
[2022-12-13 08:56] LABS: Basophils Absolute Auto 0.1 X10*3/uL (0.0-0.2); Basophils Percent Auto 0.6 % (0-2); Eosinophils Absolute Auto 0.5 X10*3/uL (0.0-0.4); Eosinophils Percent Auto 5.5 % (0-4); Hematocrit 30.9 % (42.0-52.0); Hemoglobin 9.1 g/dl (14.0-18.0); Imm Gran Abs Auto 0.03 X10*3/uL (0.00-0.03); Imm Gran Pct Auto 0.4 % (0.0-0.4); Lymphocytes Absolute Auto 0.9 X10*3/uL (1.2-4.9); Lymphocytes Percent Auto 10.5 % (20-40); Mean Corpuscular HGB Conc 29.4 g/dl (31.0-36.0); Mean Corpuscular Hemoglobin 23.9 pg (27.0-33.0); Mean Corpuscular Volume 81.3 fL (80.0-98.0); Mean Platelet Volume 10.6 fL (9.4-12.4); Monocytes Absolute Auto 0.7 X10*3/uL (0.1-1.2); Monocytes Percent Auto 8.9 % (2-11); Neutrophils Absolute Auto 6.1 x10*3/uL (2.0-8.3); Neutrophils Percent Auto 74.1 % (45-73); Platelet Count 179 X10*3/uL (160-400); Red Cell Distribution Width 17.5 % (11.0-16.0); White Blood Count 8.2 X10*3/uL (4.8-10.8)
[2022-12-13 10:07] LABS: Alanine Aminotransferase 15 U/L (0-40); Albumin Level 3.6 g/dL (3.5-5.0); Alkaline Phosphatase 167 U/L (39-117); Anion Gap 15 (12-20); Aspartate Amino Transferase 19 U/L (5-37); Blood Urea Nitrogen 42 mg/dL (9-16); Calcium 8.8 mg/dL (8.4-10.2); Carbon Dioxide 24 mmol/L (22-29); Chloride 105 mmol/L (96-108); Cholesterol 93 mg/dL; Estimated Glomerular Filt Rate 33; Glucose Fasting 153 mg/dL (60-99); HDL Cholesterol 22 mg/dL; LDL Cholesterol Calculated 59 mg/dl; Magnesium 1.7 mg/dL (1.6-2.6); Potassium 4.5 mmol/L (3.3-5.1); Sodium 139 mmol/L (135-145); Triglycerides 62 mg/dL
[2022-12-13 10:39] LABS: Folate 15.5 ng/mL (> or = 4.0); Prostate Specific Antigen 1.07 ng/mL (<0.05-4.0); TSH reflex Free T4 6.53 uIU/mL (0.32-4.0); Vitamin B12 568 pg/mL (200-900)
[2022-12-13 11:43] LABS: Free T4 (Free Thyroxine) 1.06 ng/dL (0.71-1.85)
== END 2022-12-13 08:28 | disposition home or self-care (01) ==
LOC: HO.LAB 08:27
PROVIDERS: PCP Internal Medicine; Visit Provider Internal Medicine
DX: Z12.5 Encounter for screening for malignant neoplasm of prostate (principal); E11.40 Type 2 diabetes mellitus with diabetic neuropathy, unspecified; E78.6 Lipoprotein deficiency; E03.9 Hypothyroidism, unspecified; E78.00 Pure hypercholesterolemia, unspecified; E53.8 Deficiency of other specified B group vitamins; N40.0 Benign prostatic hyperplasia without lower urinary tract symptoms; N18.9 Chronic kidney disease, unspecified; E83.42 Hypomagnesemia
CPT/HCPCS: 36415; 80053; 80061; 82607; 82746; 83735; 84153; 84439; 84443; 85025

== ENCOUNTER 2022-12-22 15:47 | Outpatient (REF) | payer MEDICARE, SELFPAY ==
--- NOTE | ~2022-12-22 | XR_ITS ---
EXAMINATION: XR CHEST CLINICAL INFORMATION: CHF COMPARISON: Chest x-ray 02/07/2022. TECHNIQUE: 2 views of the chest were obtained. FINDINGS: The lungs are expanded and clear. The heart size is enlarged with increased pulmonary vascularity..There is an aortic valve prosthesis and median sternotomy sutures in satisfactory alignment. No gross bony abnormality seen. XR/XR chest 2V IMPRESSION: Cardiomegaly with mild pulmonary vascular congestion.
== END 2022-12-22 15:48 | disposition home or self-care (01) ==
LOC: HO.XRAY 15:47
PROVIDERS: PCP Internal Medicine; Visit Provider Internal Medicine
DX: I50.22 Chronic systolic (congestive) heart failure (principal)
CPT/HCPCS: 71046

== ENCOUNTER 2023-05-01 08:27 | Outpatient (AMB) | payer MEDICARE, SELFPAY ==
[2023-05-01 08:33] VITALS: BP 120/62; PULSE 48
--- NOTE | 2023-05-01 08:33 | MHC.OFFVIS ---
Intake Vital Signs 05/01/23 08:33 Height 5 ft 1 in BP 120/62 Blood Pressure Location Rt brachial Position Sitting Pulse 48 L Pulse Source Pulse Oximeter Intake Visit Reasons: 6 mth f/up Intake Note: 6 month f/u Storage Garage Attendant Required: No Allergies Heparin Analogues [HEPARIN ANALOGUES] Allergy (Severe, Verified 05/01/23 08:39) HIT acetaminophen [From TYLENOL] Allergy (Unknown, Verified 05/01/23 08:39) UNKNOWN Sulfa (Sulfonamide Antibiotics) [SULFA (SULFONAMIDE ANTIBIOTICS)] Allergy (Unknown, Verified 05/01/23 08:39) HIVES Medication List - Last Reconciled 05/01/23 by Arabella Romero NP-C apixaban (Eliquis) 5 mg PO BID 90 days atorvastatin 80 mg PO BEDTIME blood sugar diagnostic As directed blood-glucose meter As directed docusate sodium (Stool Softener) 100 mg PO DAILY doxycycline hyclate 100 mg PO BID ezetimibe (Zetia) 10 mg PO BEDTIME furosemide (Lasix) 40 mg PO DAILY insulin glargine 25 units subcut DAILY insulin lispro (Humalog KwikPen (U-100) Insulin) See Protocol sliding scale doses subcut QIDACHS Lactobacillus acidophilus (Probiotic) 10,000 mmu cells PO BID levothyroxine 50 mcg PO Q OTHER DAY magnesium oxide 400 mg PO TID metoprolol succinate ER (Toprol XL) 25 mg PO BID 90 days omeprazole 20 mg PO BID@0630,1630 pen needle, diabetic As directed tamsulosin (Flomax) 0.4 mg PO DAILY@1700 HPI 6 mth f/up HPI Details Dom is a 73-year-old male with past medical history of hypertension, hyperlipidemia, diabetes, coronary artery disease, coronary artery bypass grafting with bio prosthetic AVR, Maze procedure, left atrial appendage ligation, persistent AFib, chronic right heart failure who then had issues with foot ulcer, sepsis, aortic valve endocarditis requiring long-term antibiotics. Last [facility] echo 01/2022 showed no vegetations. Today he reports that he had issues with sepsis again and was admitted to [facility] in December 2022. He tells me he was in the ICU and ultimately underwent a left BKA. He believes he had cardiac testing such as echocardiogram but is unsure. He does not recall being told he had endocarditis. He is no longer on antibiotics. He has been doing well since his hospital discharge. He went to rehab for a short while then had home visiting nurse. He now has a new prosthesis and is beginning physical therapy. He denies any chest discomfort at rest or with activity. He is still mostly sedentary. No shortness of breath, PND, orthopnea or edema. No presyncope, syncope, falls. Taking meds as directed. No bleeding issues reported. is present. [facility] Medical History (Updated 05/01/23 @ 09:14 by CHRISTOPHER LynchC) Atrial fibrillation Chronic kidney disease, unspecified Coronary artery disease Diabetic foot ulcer Endocarditis of aortic valve Essential hypertension Group C streptococcal infection Hemorrhage of gastrointestinal tract, unspecified History of hemodialysis HIT (heparin-induced thrombocytopenia) (~2018) Hyperlipidemia, unspecified Hypomagnesemia Hypothyroidism Persistent atrial fibrillation Pulmonary nodule Type 2 diabetes mellitus with unspecified complications Surgical History History of cardiac catheterization (~11/17/18) History of lung biopsy (~02/14/21) History of maze procedure Status post aortic valve replacement with bioprosthetic valve (~01/2019) Status post coronary artery bypass graft (~01/2019) Status post foot surgery Family History Father Emphysema, unspecified Mother Cardiovascular disease Social History Household Members: Significant Other Housing: House Do you presently have visiting nurse or other home services: No Alcohol intake: never Patient Tobacco Use Status: Former Tobacco user Tobacco use type: Pipe Advance Directives Date on File: 06/27/20 service: No Current occupational status: retired Review of Systems Const All systems reviewed & are unremarkable except as noted in HPI and below ENT Denies dizziness Card Denies chest pain, Denies chest pain at rest, Denies chest pain with activity, Denies rapid heart rate, Denies pedal edema, Denies edema, Denies leg edema, Denies lightheadedness, Denies palpitations, Denies dyspnea, Denies dyspnea on exertion and Denies orthopnea Resp Denies cough, Denies dyspnea and Denies dyspnea on exertion GI Denies hematochezia and Denies change in stool character Musc Details: New left BKA Reports abnormal gait, Denies limited range of motion, Denies muscle cramps, Denies muscle weakness, Denies numbness, Denies radiating pain into limb, Denies stiffness and Denies tingling Neuro Reports abnormal gait, Denies dizziness, Denies numbness and Denies tingling Endo Denies palpitations Physical Exam Const General: cooperative, healthy appearing, comfortable and no acute distress Orientation/consciousness: patient oriented x3 HEENT Head: Yes normal to inspection Eyes Sclerae: sclerae normal Neck Neck: Yes normal visual inspection and Yes no JVD Carotids: normal carotid upstroke Chest Chest palpation & inspection: normal inspection of the chest Resp Effort & Inspection: normal respiratory effort Auscultation: clear to auscultation bilaterally, no crackles, no rales, no rhonchi and no wheezes Cardio Jugular venous distension: no JVD Rate: regular rate Rhythm: regular rhythm Heart sounds: S1 normal heart sound present, S2 normal heart sound present, no gallops, no murmurs and no rubs Peripheral pulses: Peripheral pulses 2+ throughout GI Inspection: Yes normal to inspection Skin General skin exam: no rashes or lesions noted Neuro General: patient oriented x3 Extrem Other: Left BKA, right lower extremity without open wounds, no significant edema General: No no pedal edema Psych Appearance: grossly normal Mental Status: mental status grossly normal Speech and movement: Normal speech and movement present Assessment & Plan Assessment & Plan (1) Status post aortic valve replacement with bioprosthetic valve: Onset Date: ~01/2019 Code(s): Z95.3 - Presence of xenogenic heart valve Plan: History of aortic stenosis, underwent bioprosthetic AVR 01/2019. He has since had issues with sepsis, bacteremia and aortic valve endocarditis. He was on long-term antibiotics with resolution of vegetations. His last echocardiogram at [facility] on 02/10/2022 showed EF 55-60%, moderate to severe decrease in the RV systolic function, bioprosthetic AVR functioning normally. Today he reports that he was admitted to [facility] December 2021 with recurrent wound left foot, sepsis. He ultimately underwent left BKA. He recalls being in the ICU. Will work on obtaining records from [facility] regarding that admission. If no echocardiogram was completed will obtain at this time. At present he has no clinical signs indicating infection. He denies fever, sweats, chills. His left BKA is well healed and he is now in physical therapy with his new prosthesis. (2) Coronary artery disease: Comment: (s/p CABG x - 2018) Code(s): I25.10 - Atherosclerotic heart disease of cachil dehe coronary artery without angina pectoris Plan: History of coronary artery disease and underwent 3 vessel coronary artery bypass grafting 01/2019. Last known echo with no regional wall motion abnormalities and normal EF. He denies any anginal sounding symptoms. Will review records from [facility] including EKG and determine if any further cardiac testing needed at present. Will continue on current meds including high-dose atorvastatin, Zetia, metoprolol. He is not on aspirin as he is on Eliquis for anticoagulation. LDL goal less than 70. Labs done 12/13/2022 shows LDL 59. Signs and symptoms of angina reviewed with him. (3) Persistent atrial fibrillation: Code(s): I48.19 - Other persistent atrial fibrillation Plan: Reported history of persistent AFib. Last EKG showing atrial fibrillation with controlled rate. Initial heart rate documented as being 48. Recheck done by me with auscultation, 62. Heart tones do have some irregularity, likely persistent AFib. He is on low-dose metoprolol for rate control. He is on Eliquis for anticoagulation. No bleeding issues reported (4) Endocarditis of aortic valve: Code(s): I35.8 - Other nonrheumatic aortic valve disorders Plan: As above. Endocarditis prophylaxis reviewed. (5) History of left below knee amputation: Code(s): Z89.512 - Acquired absence of left leg below knee Plan: As above (6) Hospital discharge follow-up: Code(s): Z09 - Encounter for follow-up examination after completed treatment for conditions other than malignant neoplasm Plan: Will work on obtaining records from recent [facility] admission Coding Level of Care Code Est Pt Level 4 (06767) Diagnoses Status post aortic valve replacement with bioprosthetic valve Z95.3 Coronary artery disease I25.10 Persistent atrial fibrillation I48.19 Endocarditis of aortic valve I35.8 History of left below knee amputation Z89.512 Hospital discharge follow-up Z09 Time Spent (min) 28 Comment Chart review, documentation, interview, assess
== END 2023-05-01 09:05 | disposition home or self-care (01) ==
PROVIDERS: PCP Internal Medicine; Referring Provider Internal Medicine; Visit Provider Nurse Practitioner Family
DX: Z95.3 Presence of xenogenic heart valve (principal); I25.10 Atherosclerotic heart disease of native coronary artery without angina pectoris; I48.19 Other persistent atrial fibrillation; I35.8 Other nonrheumatic aortic valve disorders; Z89.512 Acquired absence of left leg below knee; Z09 Encounter for follow-up examination after completed treatment for conditions other than malignant neoplasm
CPT/HCPCS: 99214

== ENCOUNTER → 2023-05-01 08:27 | Outpatient (BNVA) | payer MEDICARE, SELFPAY | PROVIDERS: PCP Internal Medicine; Referring Provider Internal Medicine; Visit Provider Nurse Practitioner Family | DX: I13.0 Hypertensive heart and chronic kidney disease with heart failure and stage 1 through stage 4 chronic kidney disease, or unspecified chronic kidney disease (principal); I50.812 Chronic right heart failure; I25.10 Atherosclerotic heart disease of native coronary artery without angina pectoris; I35.8 Other nonrheumatic aortic valve disorders; N18.9 Chronic kidney disease, unspecified; E11.22 Type 2 diabetes mellitus with diabetic chronic kidney disease; E11.69 Type 2 diabetes mellitus with other specified complication; M86.9 Osteomyelitis, unspecified; E11.621 Type 2 diabetes mellitus with foot ulcer; I48.19 Other persistent atrial fibrillation; F17.290 Nicotine dependence, other tobacco product, uncomplicated; Z95.3 Presence of xenogenic heart valve; Z95.1 Presence of aortocoronary bypass graft; Z98.890 Other specified postprocedural states; Z89.512 Acquired absence of left leg below knee; Z79.4 Long term (current) use of insulin; Z79.899 Other long term (current) drug therapy; Z09 Encounter for follow-up examination after completed treatment for conditions other than malignant neoplasm | CPT/HCPCS: 99212 ==

== ENCOUNTER 2023-05-07 13:47 | Outpatient (RCR) | payer MEDICARE, SELFPAY | END 2023-06-23 16:08 | disposition home or self-care (01) | LOC: HO.WCC 13:47 | PROVIDERS: PCP Internal Medicine; Visit Provider Surgery | DX: L97.821 Non-pressure chronic ulcer of other part of left lower leg limited to breakdown of skin (principal); G82.22 Paraplegia, incomplete; Z79.4 Long term (current) use of insulin; Z79.899 Other long term (current) drug therapy | CPT/HCPCS: 97597; 99212; 99213 ==

== ENCOUNTER → 2023-06-05 10:48 | Outpatient (REF) | payer MEDICARE, SELFPAY ==
--- NOTE | 2023-06-05 10:52 | CA_ITS ---
Transthoracic Echocardiogram Patient (Last, First, Middle): Dom Sood, Gender: Male Date of : 1950 Age: 73 Procedure Date: 06/05/2023 Procedure Type: Transthoracic Echocardiogram Location: OP Height: 177.8 cm Weight: 86.18 kg BSA: 2.04 m2 Heart Rate: bpm BP: 130 / 64 mmHg Conservation Assistant: TO Referring MD: Arabella Romero DOOR ATTENDANT-C Symptoms: Z95.3 - Presence of xenogenic heart valve Study Quality: Fair Conclusions: - The left ventricular systolic function is normal. The calculated ejection fraction is 61% by biplane method. - Evidence suggests grade III (severe) diastolic dysfunction. - There is moderate to severely decreased right ventricular systolic function. - A bioprosthetic aortic valve is present. The prosthetic aortic valve appears to be functioning normally. - There is severe mitral annular calcification. There is moderate to severe mitral valve stenosis. Findings Left Ventricle Normal left ventricular cavity size. There is normal left ventricular wall thickness. The left ventricular systolic function is normal. The calculated ejection fraction is 61% by biplane method. There is no evidence of regional wall motion abnormalities. Evidence suggests grade III (severe) diastolic dysfunction. Right Ventricle Moderately increased right ventricular cavity size. There is moderate to severely decreased right ventricular systolic function. Atria Mild biatrial enlargement. Aortic Valve A bioprosthetic aortic valve is present. The prosthetic aortic valve appears to be functioning normally. There is no aortic valve regurgitation. Mitral Valve There is severe mitral annular calcification. There is trace mitral valve regurgitation. There is moderate to severe mitral valve stenosis. Pulmonic Valve The pulmonic valve is likely normal. Tricuspid Valve There is mild tricuspid valve regurgitation. The right ventricular systolic pressure is 77 mmHg. Severe pulmonary hypertension is present. Great Vessels The sinuses of valsalva and asc aorta are normal in size. Venous The inferior vena cava is dilated and collapses greater than 50% with inspiration. Pericardium/Pleural There is no evidence of pericardial effusion. Prior Study Comparison Changes noted compared to prior study dated: 02/10/2022. Progression of mitral stenosis. Measurements 2D Linear Measurements IVSd: 0.95 0.6-0.9/0.6-1.0 cm LVIDd: 4.83 3.9-5.3/4.2-5.9 cm LVIDd Index: 2.37 2.4-3.2/2.2-3.1 cm/m2 LVIDs: 3.11 2.0-3.6 cm LVPWd: 0.89 0.7-1.1 cm LA Diam: 4.50 2.7-3.8/3.0-4.0 cm LAIDs Index: 2.21 1.5-2.3 cm/m2 LV Mass: 190.45 67-162/88-224 g LV Mass Index: 93.36 43-95/49-115 g/m2 LVOT Diam: 2.00 3.0+(-)1.3 cm 2D Systolic Function EF 4C: 62.10 >55% EF 2C: 58.20 >55% EF BiP: 60.50 >55% Mitral Valve MV VTI: 0.72 MV Pk Rojelio: 2.29 MV Mn Rojeilo: 1.05 MV Pk Grad: 21.00 MV Mn Grad: 6.00 MV Pk E: 1.67 MV PK A: 0.46 MV Decel Time: 504.00 E/A: 3.60 E'Lateral: 6.96 E'Medial: 3.26 E/E' Med: 51.20 E/E' Lat: 24.00 PHT: 148.00 MVA PHT: 1.49 MVA Continuity: 0.98 Decel Whitfield: 3.31 Aortic Valve AoV Pk Rojelio: 1.91 AoV Mn Rojelio: 1.33 AoV VTI: 0.50 AoV Pk Grad: 15.00 Aov Mn Grad: 8.00 SEJAL Cont.VTI: 1.40 LVOT LVOT Pk Rojelio: 0.90 LVOT Mn Rojelio: 0.64 LVOT VTI: 0.22 LVOT Pk Grad: 3.00 LVOT Mn Grad: 2.00 LVOT Diam: 2.00 LVOT Area: 3.14 Diastolic Function MV Pk E: 1.67 MV Pk A: 0.46 E/A: 3.60 E'Medial: 3.26 E/E' Med: 51.20 E' Laterial: 6.96 E/E' Lat: 24.00 Right Ventricle TAPSE (mm): 12.00 TVS' Rojelio: 5.48 Tricuspid Valve TR Pk Rojelio: 4.15 TR Pk Grad: 69.00 RA Press: 8.00 RVSP: 77.00 Great Vessels Aorta Sinus of Valsalva: 2.87 2.0-3.5 cm Ao Asc: 2.50 2.1-3.4 cm Updated in Other Vendor System with Status of Final Cody Grewal MD electronically signed on 06/06/2023 1:10:24 PM with status of Final
== END ==
LOC: HO.CARD 10:48
PROVIDERS: PCP Internal Medicine; Visit Provider Nurse Practitioner Family
DX: Z95.3 Presence of xenogenic heart valve (principal)
CPT/HCPCS: 93306

== ENCOUNTER → 2023-06-05 10:52 | Outpatient (BNV) | payer MEDICARE, SELFPAY | PROVIDERS: PCP Internal Medicine; Visit Provider Internal Medicine | DX: I34.2 Nonrheumatic mitral (valve) stenosis (principal); I34.81 Nonrheumatic mitral (valve) annulus calcification; Z95.3 Presence of xenogenic heart valve | CPT/HCPCS: 93306 ==

== ENCOUNTER 2023-06-11 07:53 | Outpatient (REF) | payer MEDICARE, SELFPAY ==
--- NOTE | ~2023-06-11 | CT_ITS ---
EXAMINATION: CT CHEST WITHOUT CONTRAST CLINICAL INFORMATION: Solitary pulmonary nodule COMPARISON: 01/31/2022, 06/27/2020, 04/18/2019 TECHNIQUE: Multidetector volumetric CT imaging of the chest was done. Axial MIP volume rendering provided. Sagittal and coronal reformatted images were obtained. This CT examination was performed using dose optimization techniques as appropriate, variously including the following: *Automated exposure control *Adjustment of mA and/or kV according to patient size (this includes techniques or standardized protocols for targeted exams where dose is matched to indication/reason for exam; i.e. 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 Left base increased markings. LUNGS: Trachea and bronchi are patent. Evaluation of the lung parenchyma limited by motion. 2.7 cm lingular opacity is not significantly changed. Unchanged irregular borders and tethering to the pleura. No suspicious lung nodules. MEDIASTINUM: Unremarkable thyroid. Unchanged 1.2 cm short axis right paratracheal lymph node. Increasing small prevascular lymph nodes. Largest prevascular lymph node measures 1.5 x 0.5 cm having shown enlargement from previous. Heart is prominent with valvular calcifications. Degree of coronary calcifications: Moderate. No pericardial effusion. Post CABG anatomy. Nonaneurysmal aorta with atherosclerotic calcifications. Nonenlarged pulmonary arteries. CORONARY ARTERY CALCIFICATION: None visualized on this study. PLEURA: Left lower lobe pleural-parenchymal thickening is unchanged. AXILLA: No lymphadenopathy. UPPER ABDOMEN: No upper abdominal pathology recognized. OSSEOUS STRUCTURES: Median sternotomy wires multilevel thoracic compression deformities and kyphosis. CT/CT chest wo IV con IMPRESSION: Stable chest including lingular opacity dating back to 06/27/2020. No suspicious lung nodules. Fleischner guidelines were followed.
== END 2023-06-11 07:54 | disposition home or self-care (01) ==
LOC: HO.CT 07:53
PROVIDERS: PCP Internal Medicine; Visit Provider Surgery
DX: R91.1 Solitary pulmonary nodule (principal)
CPT/HCPCS: 71250

== ENCOUNTER 2023-06-19 09:32 | Outpatient (AMB) | payer MEDICARE, SELFPAY ==
--- NOTE | 2023-06-19 09:56 | MHC.OFFVIS ---
Intake Vital Signs 06/19/23 10:02 Height 5 ft 1 in BP 100/70 Blood Pressure Location Lt brachial Pulse 55 Pulse Oximetry (%) 97 Intake Visit Reasons: 1 year follow up Allergies Heparin Analogues [HEPARIN ANALOGUES] Allergy (Severe, Verified 06/19/23 10:03) HIT acetaminophen [From TYLENOL] Allergy (Unknown, Verified 06/19/23 10:03) UNKNOWN Sulfa (Sulfonamide Antibiotics) [SULFA (SULFONAMIDE ANTIBIOTICS)] Allergy (Unknown, Verified 06/19/23 10:03) HIVES Medication List - Last Reconciled 06/19/23 by Iris Haider MD apixaban (Eliquis) 5 mg PO BID 90 days atorvastatin 80 mg PO BEDTIME blood sugar diagnostic As directed blood-glucose meter As directed docusate sodium (Stool Softener) 100 mg PO DAILY doxycycline hyclate 100 mg PO BID ezetimibe (Zetia) 10 mg PO BEDTIME furosemide (Lasix) 40 mg PO DAILY insulin glargine 25 units subcut DAILY insulin lispro (Humalog KwikPen (U-100) Insulin) See Protocol sliding scale doses subcut QIDACHS Lactobacillus acidophilus (Probiotic) 10,000 mmu cells PO BID levothyroxine 50 mcg PO Q OTHER DAY magnesium oxide 400 mg PO TID metoprolol succinate ER (Toprol XL) 25 mg PO BID 90 days omeprazole 20 mg PO BID@0630,1630 pen needle, diabetic As directed tamsulosin (Flomax) 0.4 mg PO DAILY@1700 HPI 1 year follow up HPI Details 70-year-old man with multiple medical comorbidities who has a persistent and slightly more defined nodule in the lingula of the left upper lobe over serial surveillance CTs. I had a long discussion with him about the findings on the CT scan. It is certainly encouraging that this has not grown significantly over time but has seemed to become more defined in shape certainly since his last CT scan in June of 2020. Possibilities are low-grade malignancy versus scar or atelectasis.? At our last visit we decided to get a PET scan and a biopsy.? PET scan was done on 02/19/2021 and biopsy was done on 02/12/2021.? PET scan showed no increased uptake within the area of concern in the lingula/left lower lobe and no increased uptake elsewhere.? Biopsy just showed old blood and fibrin. Did have a 1 year follow-up CT scan however he was hospitalized in August of 2021 for lower extremity infection which eventually cleared and he feels much better since then he did have also have a CT scan done during that hospitalization which showed a stable area in the lingula of the left upper lobe. Again his CT scan was repeated 01/31/2022 which showed stable rounded nodule in the lingula the left upper lobe. Repeat CT scan done again on 06/11/2023 reviewed interpreted by me directly shows a stable lingular opacity now for several years. He does also tell me he had another infection in his left lower extremity and ended up with a below-knee amputation and was using a prosthetic up until about a week ago where he developed a blister and they have taken that off since and he has shortly going to get that back and start rehab again. He tells me his breathing is stable and he denies cough or hemoptysis. Says he feels much better since his hospitalization after the infection was treated completely. Other than above, 12 point review of systems was done and documented separately in the office chart with detailed social and family history. [facility] [place] Medical History Group C streptococcal infection Diabetic foot ulcer Atrial fibrillation Hypothyroidism Hypomagnesemia Coronary artery disease Pulmonary nodule History of hemodialysis HIT (heparin-induced thrombocytopenia) (~2018) Chronic kidney disease, unspecified Type 2 diabetes mellitus with unspecified complications Hemorrhage of gastrointestinal tract, unspecified Hyperlipidemia, unspecified Essential hypertension Persistent atrial fibrillation Endocarditis of aortic valve Surgical History Status post foot surgery History of lung biopsy (~02/14/21) History of maze procedure Status post coronary artery bypass graft (~01/2019) Status post aortic valve replacement with bioprosthetic valve (~01/2019) History of cardiac catheterization (~11/17/18) Family History Father Emphysema, unspecified Mother Cardiovascular disease Social History Household Members: Significant Other Housing: House Do you presently have visiting nurse or other home services: No Alcohol intake: never Patient Tobacco Use Status: Former Tobacco user Tobacco use type: Pipe Advance Directives Date on File: 06/27/20 service: No Current occupational status: retired Physical Exam Vital Signs: Last Vital Signs Pulse 55 06/19/23 10:02 BP 100/70 06/19/23 10:02 Pulse Ox 97 06/19/23 10:02 General: No acute distress HEENT: Moist mucous membranes, normocephalic, pupils equal round and reactive to light. Neck: No thyromegaly, supple, no JVD Lymph: No cervical, supraclavicular, or other lymphadenopathy Chest: No chest wall abnormalities or deformities well-healed sternotomy incision stable. Heart: Regular rate and rhythm Lungs: Clear to auscultation bilaterally Abdomen: Soft, nontender, normal bowel sounds Extremities: No edema, cyanosis, or clubbing. Full range of motion Neuro: Grossly intact, alert and oriented x3, and nonfocal Skin: Warm and dry no rashes Affect: Normal Assessment & Plan Assessment & Plan (1) Pulmonary nodule: Comment: (LLL/Lingula nodule 2.6 cm - no PET activity 02/19/21, no malignancy on FNA/biopsy 02/14/21) Code(s): R91.1 - Solitary pulmonary nodule Plan: 73-year-old man with a stable pulmonary nodule probably rounded atelectasis now in the lingula of the left upper lobe doing well from a clinical standpoint now since his below-knee amputation and resolution of the infection. I did discuss with him and his findings on his CT scan which are quite encouraging. We plan a 1 year follow-up CT scan of the chest and a visit with me after that at his preference. The CT scan will be done at [place] and his follow-up with be will be in [facility]. Orders: Orders CT chest wo IV con 11 Months R91.1 - Solitary pulmonary nodule Coding Level of Care Code Est Pt Level 4 (11087) Diagnoses Pulmonary nodule R91.1
[2023-06-19 10:02] VITALS: BP 100/70; PULSE 55; O2SAT 97
== END 2023-06-19 10:17 | disposition home or self-care (01) ==
PROVIDERS: PCP Internal Medicine; Visit Provider Surgery
DX: R91.1 Solitary pulmonary nodule (principal)

== ENCOUNTER → 2023-06-19 09:32 | Outpatient (BNVA) | payer MEDICARE, SELFPAY | PROVIDERS: PCP Internal Medicine; Visit Provider Surgery | DX: R91.1 Solitary pulmonary nodule (principal) | CPT/HCPCS: 99212 ==

== ENCOUNTER 2023-07-18 09:44 | Outpatient (REF) | payer MEDICARE, SELFPAY ==
[2023-07-18 10:02] LABS: MANUAL DIFF FLAG NO
[2023-07-18 10:25] LABS: Basophils Percent Auto 0.6 % (0-2); Eosinophils Absolute Auto 0.3 X10*3/uL (0.0-0.4); Eosinophils Percent Auto 4.1 % (0-4); Hematocrit 33.6 % (42.0-52.0); Hemoglobin 10.4 g/dl (14.0-18.0); Imm Gran Abs Auto 0.02 X10*3/uL (0.00-0.03); Imm Gran Pct Auto 0.3 % (0.0-0.4); Lymphocytes Absolute Auto 0.6 X10*3/uL (1.2-4.9); Lymphocytes Percent Auto 9.7 % (20-40); Mean Corpuscular Hemoglobin 24.2 pg (27.0-33.0); Mean Corpuscular Volume 78.1 fL (80.0-98.0); Mean Platelet Volume 11.5 fL (9.4-12.4); Monocytes Absolute Auto 0.6 X10*3/uL (0.1-1.2); Monocytes Percent Auto 9.1 % (2-11); Neutrophils Percent Auto 76.2 % (45-73); Platelet Count 138 X10*3/uL (160-400); Red Cell Distribution Width 19.9 % (11.0-16.0); White Blood Count 6.5 X10*3/uL (4.8-10.8)
[2023-07-18 10:56] LABS: Creatinine Urine 47.82 mg/dL; Protein/Creatinine Ratio, Ur 0.17 (<0.2); Total Protein Urine Random 8 mg/dL (<12)
[2023-07-18 11:03] LABS: Alanine Aminotransferase 22 U/L (0-40); Albumin Level 3.4 g/dL (3.5-5.0); Alkaline Phosphatase 171 U/L (39-117); Anion Gap 15 (12-20); Aspartate Amino Transferase 25 U/L (5-37); Bilirubin Total 0.9 mg/dL (0.0-1.0); Blood Urea Nitrogen 31 mg/dL (9-16); Calcium 9.2 mg/dL (8.4-10.2); Carbon Dioxide 25 mmol/L (22-29); Chloride 102 mmol/L (96-108); Estimated Glomerular Filt Rate 51; Glucose Random 197 mg/dL (60-115); Magnesium 1.8 mg/dL (1.6-2.6); Phosphorus 2.4 mg/dL (2.7-4.5); Potassium 3.6 mmol/L (3.3-5.1); Sodium 138 mmol/L (135-145); Total Protein 8.2 g/dL (6.5-8.0); Uric Acid 7.8 mg/dL (3.4-7.0)
[2023-07-18 11:18] LABS: Vitamin D 25-OH Total 17.2 ng/mL (>30)
[2023-07-20 11:48] LABS: Calcium (PTHI) 8.5 mg/dL (8.6-10.3); PTHI 66 pg/mL (16-77)
== END 2023-07-18 09:45 | disposition home or self-care (01) ==
LOC: HO.LAB 09:44
PROVIDERS: Visit Provider Internal Medicine Nephrology
DX: N17.9 Acute kidney failure, unspecified (principal); D63.1 Anemia in chronic kidney disease; N18.32 Chronic kidney disease, stage 3b; I48.91 Unspecified atrial fibrillation; I25.10 Atherosclerotic heart disease of native coronary artery without angina pectoris; E11.69 Type 2 diabetes mellitus with other specified complication; I96 Gangrene, not elsewhere classified; E83.42 Hypomagnesemia; Z95.2 Presence of prosthetic heart valve
CPT/HCPCS: 36415; 80053; 82306; 82570; 83735; 83970; 84100; 84156; 84550; 85025

== ENCOUNTER 2023-11-19 12:54 | Outpatient (AMB) | payer MEDICARE, SELFPAY ==
--- NOTE | 2023-11-19 13:11 | A.OFFVIS_ITS ---
Intake Vital Signs 11/19/23 13:37 Height 5 ft 1 in Weight 167 lb BMI 31.6 BP 128/68 Blood Pressure Location Rt brachial Position Sitting Pulse 73 Intake Visit Reasons: 6 month follow up (rs) Allergies Heparin Analogues [HEPARIN ANALOGUES] Allergy (Severe, Verified 11/19/23 13:59) HIT acetaminophen [From TYLENOL] Allergy (Unknown, Verified 11/19/23 13:59) UNKNOWN Sulfa (Sulfonamide Antibiotics) [SULFA (SULFONAMIDE ANTIBIOTICS)] Allergy (Unk nown, Verified 11/19/23 13:59) HIVES Medication List - Last Reconciled 11/19/23 by Maryana Clemons, DOMINIK apixaban (Eliquis) 5 mg PO BID 90 days atorvastatin 80 mg PO BEDTIME blood sugar diagnostic As directed blood-glucose meter As directed docusate sodium (Stool Softener) 100 mg PO DAILY doxycycline hyclate 100 mg PO BID ezetimibe 10 mg PO BEDTIME furosemide (Lasix) 40 mg PO DAILY insulin glargine 25 units subcut DAILY insulin lispro (Humalog KwikPen (U-100) Insulin) See Protocol sliding scale doses subcut QIDACHS Lactobacillus acidophilus (Probiotic) 10,000 mmu cells PO BID levothyroxine 50 mcg PO Q OTHER DAY magnesium oxide 400 mg PO TID metoprolol succinate ER 25 mg PO BID omeprazole 20 mg PO BID@0630,1630 pen needle, diabetic As directed tamsulosin (Flomax) 0.4 mg PO DAILY@1700 HPI HPI Comments History of Present Illness0 Details 73-year-old male presents today for a fo llow-up. He has a medical history many comorbities including PAD, foot wounds, persistent atrial fibrillation, chronic right heart failure, diabetes, aortic valve replacement, CABG, and chronic kidney disease. He has a BKA and is currently using a walker but upgrading to a cane. He has been doing physical therapy. He denies no chest pains, shortness of breath, palpitations, rapid rates, orthopnea, edema, syncope, falls, or bleeding concerns. He is working with wound care at [facility] [place] and [place] [facility] [place] and the infections/non healing wounds. [facility] Medical History Group C streptococcal infection Diabetic foot ulcer Atrial fibrillation Hypothyroidism Hypomagnesemia Coronary artery disease Pulmonary nodule History of hemodialysis HIT (heparin-induced thrombocytopenia) (~2018) Chronic kidney disease, unspecified Type 2 diabetes mellitus with unspecified complications Hemorrhage of gastrointestinal tract, unspecified Hyperlipidemia, unspecified Essential hypertension Persistent atrial fibrillation Endocarditis of aortic valve Surgical History Status post foot surgery History of lung biopsy (~02/14/21) History of maze procedure Status post coronary artery bypass graft (~01/2019) Status post aortic valve replacement with bioprosthetic valve (~01/2019) History of cardiac catheterization (~11/17/18) Family History Father Emphysema, unspecified Mother Cardiovascular disease Social History Household Members: Significant Other Housing: House Do you presently have visiting nurse or other home services: No Alcohol intake: never Comment: refusing bed alarm Patient Tobacco Use Status: Former Tobacco user Tobacco use type: Pipe Advance Directives Date on File: 06/27/20 service: No Current occupational status: retired Review of Systems Const Denies weakness ENT Denies dizziness Card Denies chest pain, Denies chest pain with activity, Denies syncope, Denies rapid heart rate, Denies pedal edema, Denies edema, Denies leg edema, Denies lightheadedness, Denies palpitations, Denies dyspnea, Denies dyspnea on exertion and Denies orthopnea Resp Denies cough, Denies dyspnea and Denies dyspnea on exertion GI Denies hematochezia and Denies change in stool character Musc Denies abnormal gait, Denies muscle cramps, Denies muscle weakness, Denies numbness, Denies radiating pain into limb and Denies tingling Neuro Denies abnormal gait, Denies dizziness, Denies syncope, Denies numbness, Denies tingling and Denies weakness Endo Denies palpitations Physical Exam Vital Signs: Last Vital Signs Pulse 73 11/19/23 13:37 BP 128/68 11/19/23 13:37 BMI result Body Mass Index 31.6 Const General: healthy appearing and no acute distress Orientation/consciousness: patient oriented x3 HEENT Head: Yes normal to inspection Eyes General: appearance normal, both eyes and all related structures Neck Neck: Yes normal visual inspection Chest Chest palpation & inspection: normal inspection of the chest Resp Effort & Inspection: normal respiratory effort Auscultation: clear to auscultation bilaterally Cardio Jugular venous distension: no JVD Palpation: normal PMI Rate: regular rate Rhythm: regular rhythm Heart sounds: S1 normal heart sound present, S2 normal heart sound present, no click, no gallops, no murmurs and no rubs GI Inspection: Yes normal to inspection Palpation (GI): Soft to palpation Skin General skin exam: no rashes or lesions noted Neuro General: patient oriented x3 Extrem General: Yes normal to inspection Psych Appearance: grossly normal Office Procedures EKG Details: EKG today. Sinus rhythm with 1st degree AV block. Right bundle branch block. Rate 73 bpm. QRS 174 ms. [id number], Complete Assessment & Plan Assessment & Plan (1) Coronary artery disease: Comment: (s/p CABG x - 2018) Code(s): I25.10 - Atherosclerotic heart disease of [place] coronary artery without angina pectoris (2) Chronic right heart failure: Code(s): I50.812 - Chronic right heart failure (3) Persistent atrial fibrillation: Code(s): I48.19 - Other persistent atrial fibrillation (4) Status post aortic valve replacement with bioprosthetic valve: Onset Date: ~01/2019 Code(s): Z95.3 - Presence of xenogenic heart valve (5) Uncontrolled diabetes mellitus with hyperglycemia: Code(s): E11.65 - Type 2 diabetes mellitus with hyperglycemia (6) Chronic kidney disease, unspecified: Code(s): N18.9 - Chronic kidney disease, unspecified Qualifiers: Chronic kidney disease stage: unspecified stage Qualified Code(s): N18.9 - Chronic kidney disease, unspecified Plan Does not appear to be fluid overloaded today on exam. On diuretics currently. He does not add salt to his food. Will repeat BMP and lipid panel. On atorvastatin and zetia. Last LDL 12/13/22 59. Diabetes not under good control currently - has diabetic foot ulcers that are non-healing. Discussion on trying to get number under control with his providers. EKG shows normal sinus rhythm and control rate of 73 bpm. On beta blockers and eliquis. Report bleeding. Endocarditis prophylaxis per protocol discussed. Orders: Orders Basic Metabolic Panel 11/19/23 I25.10 - Atherosclerotic heart disease of [place] coronary artery without angina pectoris Lipid Panel 11/19/23 I25.10 - Atherosclerotic heart disease of [place] coronary artery without angina pectoris Coding Level of Care Code Est Pt Level 4 (32860) Diagnoses Coronary artery disease I25.10 Chronic right heart failure I50.812 Persistent atrial fibrillation I48.19 Status post aortic valve replacement with bioprosthetic valve Z95.3 Uncontrolled diabetes mellitus with hyperglycemia E11.65 Chronic kidney disease, unspecified CKD stage N18.9 Chronic kidney disease stage: unspecified stage CPT Codes EKG - CPT: [id number], Complete ([id number])
[2023-11-19 13:37] VITALS: BP 128/68; PULSE 73; BMI 31.6
== END 2023-11-19 14:25 | disposition home or self-care (01) ==
PROVIDERS: PCP Internal Medicine; Visit Provider Nurse Practitioner
DX: I25.10 Atherosclerotic heart disease of native coronary artery without angina pectoris (principal); I50.812 Chronic right heart failure; I48.19 Other persistent atrial fibrillation; Z95.3 Presence of xenogenic heart valve; E11.65 Type 2 diabetes mellitus with hyperglycemia; N18.9 Chronic kidney disease, unspecified
CPT/HCPCS: 93010; 99214

== ENCOUNTER → 2023-11-19 12:54 | Outpatient (BNVA) | payer MEDICARE, SELFPAY | PROVIDERS: PCP Internal Medicine; Visit Provider Nurse Practitioner | DX: I25.10 Atherosclerotic heart disease of native coronary artery without angina pectoris (principal); E11.65 Type 2 diabetes mellitus with hyperglycemia; I50.812 Chronic right heart failure; I48.19 Other persistent atrial fibrillation; E11.22 Type 2 diabetes mellitus with diabetic chronic kidney disease; N18.9 Chronic kidney disease, unspecified; Z95.3 Presence of xenogenic heart valve; Z79.01 Long term (current) use of anticoagulants; Z79.899 Other long term (current) drug therapy | CPT/HCPCS: 93005; 99212 ==

== ENCOUNTER 2023-12-21 11:30 | Outpatient (REF) | payer MEDICARE, SELFPAY ==
[2023-12-21 11:36] LABS: MANUAL DIFF FLAG NO
[2023-12-21 11:50] LABS: Basophils Absolute Auto 0.1 X10*3/uL (0.0-0.2); Basophils Percent Auto 1.1 % (0-2); Eosinophils Absolute Auto 0.4 X10*3/uL (0.0-0.4); Hemoglobin 13.3 g/dl (14.0-18.0); Imm Gran Abs Auto 0.02 X10*3/uL (0.00-0.03); Imm Gran Pct Auto 0.3 % (0.0-0.4); Lymphocytes Percent Auto 14.3 % (20-40); Mean Corpuscular HGB Conc 33.3 g/dl (31.0-36.0); Mean Corpuscular Hemoglobin 29.8 pg (27.0-33.0); Mean Corpuscular Volume 89.5 fL (80.0-98.0); Mean Platelet Volume 11.3 fL (9.4-12.4); Monocytes Absolute Auto 0.7 X10*3/uL (0.1-1.2); Monocytes Percent Auto 9.9 % (2-11); Neutrophils Absolute Auto 4.8 x10*3/uL (2.0-8.3); Neutrophils Percent Auto 68.4 % (45-73); Platelet Count 155 X10*3/uL (160-400); Red Blood Count 4.47 X10*6/uL (4.60-5.80); Red Cell Distribution Width 16.2 % (11.0-16.0)
[2023-12-21 11:59] LABS: Estimated Average Glucose 174 mg/dL; Hemoglobin A1c % 7.7 % (<6.0)
[2023-12-21 12:13] LABS: Alanine Aminotransferase 97 U/L (0-40); Albumin Level 3.6 g/dL (3.5-5.0); Alkaline Phosphatase 205 U/L (39-117); Anion Gap 13 (12-20); Aspartate Amino Transferase 69 U/L (5-37); Bilirubin Total 0.6 mg/dL (0.0-1.0); Blood Urea Nitrogen 37 mg/dL (9-16); Calcium 9.4 mg/dL (8.4-10.2); Carbon Dioxide 24 mmol/L (22-29); Chloride 106 mmol/L (96-108); Cholesterol 141 mg/dL (<200); Estimated Glomerular Filt Rate 50; Glucose Fasting 175 mg/dL (60-99); HDL Cholesterol 28 mg/dL (>40); LDL Cholesterol Calculated 92 mg/dL (<100); Potassium 4.2 mmol/L (3.3-5.1); Sodium 139 mmol/L (135-145); Total Protein 8.4 g/dL (6.5-8.0); Triglycerides 108 mg/dL (<150)
[2023-12-21 12:16] LABS: Appearance Urine Clear; Color Urine Yellow; Glucose Urine UA Negative (Negative); Leukocyte Esterase Urine Negative (Negative); Nitrite Urine Negative (Negative); Urine Blood Negative (Negative); Urine Ketones Negative (Negative); Urine Protein Trace mg/dL (Neg-Trace)
[2023-12-21 12:18] LABS: Bacteria Urine None Seen (None Seen); Hyaline Casts Urine 0-2 /LPF (0-2); RBC Urine 0-2 /HPF (0-2); Squamous Epithelial Cell Urine 0-2 /HPF (0-2); WBC Urine 0-5 /HPF (0-5)
[2023-12-21 12:24] LABS: Creatinine Urine 129.65 mg/dL
[2023-12-21 12:28] LABS: PSA,Total (Free>4and<10) 0.93 ng/mL (0.00-4.00); TSH reflex Free T4 4.97 uIU/mL (0.32-4.0)
[2023-12-21 13:03] LABS: Free T4 (Free Thyroxine) 1.03 ng/dL (0.71-1.85)
== END 2023-12-21 11:31 | disposition home or self-care (01) ==
LOC: HO.LNP 11:30
PROVIDERS: Visit Provider Internal Medicine
DX: Z12.5 Encounter for screening for malignant neoplasm of prostate (principal); E11.40 Type 2 diabetes mellitus with diabetic neuropathy, unspecified; E03.9 Hypothyroidism, unspecified; E78.00 Pure hypercholesterolemia, unspecified; I11.0 Hypertensive heart disease with heart failure; I50.22 Chronic systolic (congestive) heart failure
CPT/HCPCS: 80053; 80061; 81001; 82043; 82570; 83036; 84153; 84439; 84443; 85025

== ENCOUNTER 2024-01-20 07:46 | Outpatient (REF) | payer MEDICARE, SELFPAY ==
--- NOTE | ~2024-01-20 | US_ITS ---
EXAMINATION: US ABDOMEN LIMITED CLINICAL INFORMATION: Abnormal findings of blood chemistry. Elevated LFTs. COMPARISON: CT abdomen and pelvis 09/15/2021. TECHNIQUE: Real-time imaging of the right upper quadrant abdominal viscera. FINDINGS: PANCREAS: The head and body are within normal limits. The tail is obscured by bowel gas. LIVER: The liver is normal in size. The liver contour is normal. The liver is coarse and heterogeneous consistent with chronic liver disease. No focal hepatic lesion. There is no intrahepatic biliary duct dilatation seen. The main portal vein is patent and normally directed. GALLBLADDER: The gallbladder is not seen. COMMON BILE DUCT: Normal in caliber measuring 0.3 cm in diameter. RIGHT KIDNEY: No hydronephrosis or renal calculi. The kidney measures 12.3 cm in maximum dimension. 1.7 cm simple cyst in the lower pole. No follow-up imaging is recommended. FREE FLUID: None. US/US abdomen limited IMPRESSION: Heterogeneous liver consistent with chronic liver disease. No focal liver mass or biliary ductal dilatation.
== END 2024-01-20 07:47 | disposition home or self-care (01) ==
LOC: HO.US 07:46
PROVIDERS: PCP Internal Medicine; Visit Provider Internal Medicine
DX: R79.89 Other specified abnormal findings of blood chemistry (principal)
CPT/HCPCS: 76705

== ENCOUNTER 2024-02-11 11:07 | Outpatient (REF) | payer MEDICARE, SELFPAY ==
[2024-02-11 12:12] LABS: Alanine Aminotransferase 29 U/L (0-40); Albumin Level 3.6 g/dL (3.5-5.0); Alkaline Phosphatase 172 U/L (39-117); Aspartate Amino Transferase 27 U/L (5-37); Bilirubin Direct 0.3 mg/dL (0.0-0.5); Bilirubin Total 0.9 mg/dL (0.0-1.0); Total Protein 8.4 g/dL (6.5-8.0)
== END 2024-02-11 11:08 | disposition home or self-care (01) ==
LOC: HO.LNP 11:07
PROVIDERS: Visit Provider Internal Medicine
DX: R79.89 Other specified abnormal findings of blood chemistry (principal)
CPT/HCPCS: 80076

== ENCOUNTER 2024-05-25 12:10 | Outpatient (AMB) | payer MEDICARE, SELFPAY ==
[2024-05-25 12:30] VITALS: BP 150/50; PULSE 68; BMI 27.4
--- NOTE | 2024-05-25 12:30 | A.OFFVIS_ITS ---
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 Accompanied by: Self / Same As Patient Allergies Heparin Analogues [HEPARIN ANALOGUES] Allergy (Severe, Verified 11/19/23 13:59) HIT acetaminophen [From TYLENOL] Allergy (Unknown, Verified 11/19/23 13:59) UNKNOWN Sulfa (Sulfonamide Antibiotics) [SULFA (SULFONAMIDE ANTIBIOTICS)] Allergy (Unknown, Verified 11/19/23 13:59) HIVES Medication List - Last Reconciled 05/25/24 by Cody Grewal MD apixaban (Eliquis) 5 mg PO BID atorvastatin 80 mg PO BEDTIME blood sugar diagnostic As directed blood-glucose meter As directed docusate sodium (Stool Softener) 100 mg PO DAILY ezetimibe 10 mg PO BEDTIME furosemide (Lasix) 40 mg PO DAILY insulin glargine 44 units subcut DAILY insulin lispro (Humalog KwikPen (U-100) Insulin) See Protocol sliding scale doses subcut QIDACHS Lactobacillus acidophilus (Probiotic) 10,000 mmu cells PO BID levothyroxine 50 mcg PO Q OTHER DAY magnesium oxide 400 mg PO TID metoprolol succinate ER 25 mg PO BID omeprazole 20 mg PO BID@0630,1630 pen needle, diabetic As directed tamsulosin (Flomax) 0.4 mg PO DAILY@1700 HPI Comments Details: Dom returns for follow-up. He has a history of coronary artery disease, status post bypass surgery as well as aortic valve replacement. Has atrial fibrillation which seemed persistent in the past but more recently EKGs with sinus rhythm. Many issues related to infection which have led to several hospitalizations in the last few years. He states he was just at [facility] 2 months ago. Due to infection, it seems that he has also had a left below-knee amputation. In spite of all this, he states he is actually doing good from cardiac. No complaints like angina or shortness of breath or palpitations or in fact anything cardiac sounding. Seems to be getting along okay from that end. [facility] Medical History Group C streptococcal infection Diabetic foot ulcer Atrial fibrillation Hypothyroidism Hypomagnesemia Coronary artery disease Pulmonary nodule History of hemodialysis HIT (heparin-induced thrombocytopenia) (~2018) Chronic kidney disease, unspecified Type 2 diabetes mellitus with unspecified complications Hemorrhage of gastrointestinal tract, unspecified Hyperlipidemia, unspecified Essential hypertension Persistent atrial fibrillation Endocarditis of aortic valve Surgical History Status post foot surgery History of lung biopsy (~02/14/21) History of maze procedure Status post coronary artery bypass graft (~01/2019) Status post aortic valve replacement with bioprosthetic valve (~01/2019) History of cardiac catheterization (~11/17/18) Family History Father Emphysema, unspecified Mother Cardiovascular disease Social History Household Members: Significant Other Housing: House Do you presently have visiting nurse or other home services: No Alcohol intake: never Comment: refusing bed alarm Patient Tobacco Use Status: Former Tobacco user Tobacco use type: Pipe Advance Directives Date on File: 06/27/20 service: No Current occupational status: retired Review of Systems Const Denies chills, Denies fatigue, Denies fever(s), Denies weight gain and Denies weight loss ENT Denies dizziness Card Denies chest pain, Denies leg edema, Denies lightheadedness, Denies palpitations, Denies dyspnea on exertion, Denies orthopnea and Denies other Resp Denies cough and Denies dyspnea on exertion GI Denies hematochezia and Denies change in stool character Musc Denies abnormal gait, Denies muscle weakness, Denies numbness, Denies radiating pain into limb and Denies tingling Neuro Denies abnormal gait, Denies dizziness, Denies numbness and Denies tingling Endo Denies fatigue and Denies palpitations Physical Exam Vital Signs: Last Vital Signs Pulse 68 05/25/24 12:30 BP 150/50 H 05/25/24 12:30 BMI result Body Mass Index 27.4 Const General: comfortable and no acute distress Orientation/consciousness: patient oriented x3 HEENT Other: Unremarkable Head: Yes normal to inspection Neck Neck: Yes normal visual inspection Chest Chest palpation & inspection: normal inspection of the chest Resp Auscultation: clear to auscultation bilaterally Cardio Palpation: normal PMI Heart sounds: S1 normal heart sound present, S2 normal heart sound present, no gallops, no murmurs and no rubs GI Palpation (GI): Soft to palpation Back/Spine/Pelvis Other: unremarkable Skin General skin exam: no rashes or lesions noted Neuro General: patient oriented x3 Extrem General: Yes normal to inspection Psych Mental Status: mental status grossly normal Assessment & Plan Assessment & Plan (1) Chronic right heart failure: Code(s): I50.812 - Chronic right heart failure Category: Medical Plan: Stable. On diuretics. (2) Diastolic dysfunction: Code(s): I51.89 - Other ill-defined heart diseases Category: Medical Plan: He has advanced, grade 3 diastolic dysfunction on the echocardiogram. However, he does not have any heart failure symptoms or signs at this time. Likely all related to underlying ischemic heart disease. (3) Status post aortic valve replacement with bioprosthetic valve: Onset Date: ~01/2019 Code(s): Z95.3 - Presence of xenogenic heart valve Category: Surgical Plan: Last echo from 2022 shows normally functioning prosthetic aortic valve. Infective endocarditis prophylaxis per protocol. (4) Nonrheumatic mitral (valve) stenosis: Code(s): I34.2 - Nonrheumatic mitral (valve) stenosis Category: Medical Plan: Echocardiogram with calcific mitral stenosis. Clinically, he has got absolutely no symptoms like shortness of breath. Can be monitored. He is a poor candidate for any form of intervention due to recurrent infections. (5) Status post coronary artery bypass graft: Onset Date: ~01/2019 Code(s): Z95.1 - Presence of aortocoronary bypass graft Category: Surgical Plan: Stable. No angina. (6) Paroxysmal atrial fibrillation: Code(s): I48.0 - Paroxysmal atrial fibrillation Category: Medical Plan: Status post partial Maze procedure. Status post left atrial appendage ligation. He is in sinus by auscultation. Last few EKGs have also shown sinus rhythm. Remains on beta-blockers and Eliquis. He finds Eliquis very expensive. In the future, possibly switch to Coumadin. (7) Essential hypertension: Code(s): I10 - Essential (primary) hypertension Category: Medical Plan: It has been up and down at different times. Today, again on the higher side. (8) Hyperlipidemia, unspecified: Code(s): E78.5 - Hyperlipidemia, unspecified Category: Medical Qualifiers: Hyperlipidemia type: unspecified Qualified Code(s): E78.5 - Hyperlipidemia, unspecified Plan: Continue statins/zetia. (9) Hemorrhage of gastrointestinal tract, unspecified: Code(s): K92.2 - Gastrointestinal hemorrhage, unspecified Category: Medical Qualifiers: GI bleed type/associated pathology: unspecified gastrointestinal hemorrhage type Qualified Code(s): K92.2 - Gastrointestinal hemorrhage, unspecified Plan: No recent issues. 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 EGD with possible Nicholson's and nonbleeding polyp and duodenum. Plan Total time spent including review of records, counseling, documentation, coordination care-45 minutes. Coding Level of Care Code Est Pt Level 5 (49806) Diagnoses Chronic right heart failure I50.812 Diastolic dysfunction I51.89 Status post aortic valve replacement with bioprosthetic valve Z95.3 Nonrheumatic mitral (valve) stenosis I34.2 Status post coronary artery bypass graft Z95.1 Paroxysmal atrial fibrillation I48.0 Essential hypertension I10 Hyperlipidemia, unspecified hyperlipidemia type E78.5 Hyperlipidemia type: unspecified Gastrointestinal hemorrhage, unspecified gastrointestinal hemorrhage type K92.2 GI bleed type/associated pathology: unspecified gastrointestinal hemorrhage type
== END 2024-05-25 12:53 | disposition home or self-care (01) ==
PROVIDERS: PCP Internal Medicine; Visit Provider Internal Medicine
DX: I11.0 Hypertensive heart disease with heart failure (principal); I50.812 Chronic right heart failure; Z95.3 Presence of xenogenic heart valve; Z95.1 Presence of aortocoronary bypass graft; I48.0 Paroxysmal atrial fibrillation; I34.2 Nonrheumatic mitral (valve) stenosis; I51.89 Other ill-defined heart diseases; E78.5 Hyperlipidemia, unspecified; K92.2 Gastrointestinal hemorrhage, unspecified
CPT/HCPCS: 99215

== ENCOUNTER → 2024-05-25 12:10 | Outpatient (BNVA) | payer MEDICARE, SELFPAY | PROVIDERS: PCP Internal Medicine; Visit Provider Internal Medicine | DX: I11.0 Hypertensive heart disease with heart failure (principal); I50.812 Chronic right heart failure; I51.89 Other ill-defined heart diseases; I34.2 Nonrheumatic mitral (valve) stenosis; I48.0 Paroxysmal atrial fibrillation; E78.5 Hyperlipidemia, unspecified; K92.2 Gastrointestinal hemorrhage, unspecified; Z95.3 Presence of xenogenic heart valve; Z95.1 Presence of aortocoronary bypass graft | CPT/HCPCS: 99212 ==

== ENCOUNTER → 2024-08-12 13:59 | Outpatient (RCR) | payer MEDICARE, SELFPAY ==
[2023-12-26 09:22] LABS: MANUAL DIFF FLAG NO
[2023-12-26 10:07] LABS: Basophils Absolute Auto 0.1 X10*3/uL (0.0-0.2); Basophils Percent Auto 0.6 % (0-2); Eosinophils Absolute Auto 0.4 X10*3/uL (0.0-0.4); Eosinophils Percent Auto 4.6 % (0-4); Hematocrit 40.6 % (42.0-52.0); Hemoglobin 13.5 g/dl (14.0-18.0); Imm Gran Abs Auto 0.02 X10*3/uL (0.00-0.03); Imm Gran Pct Auto 0.3 % (0.0-0.4); Lymphocytes Absolute Auto 0.8 X10*3/uL (1.2-4.9); Lymphocytes Percent Auto 9.8 % (20-40); Mean Corpuscular HGB Conc 33.3 g/dl (31.0-36.0); Mean Corpuscular Hemoglobin 29.5 pg (27.0-33.0); Mean Corpuscular Volume 88.6 fL (80.0-98.0); Mean Platelet Volume 11.5 fL (9.4-12.4); Monocytes Absolute Auto 0.7 X10*3/uL (0.1-1.2); Neutrophils Percent Auto 75.7 % (45-73); Platelet Count 134 X10*3/uL (160-400); Red Blood Count 4.58 X10*6/uL (4.60-5.80); Red Cell Distribution Width 15.8 % (11.0-16.0)
[2023-12-26 10:13] LABS: Estimated Average Glucose 183 mg/dL; Hemoglobin A1C 215.4963 umol/L; Total Hemoglobin (HGBA1C) 3395.0271 umol/L
[2023-12-26 10:27] LABS: Anion Gap 13 (12-20); Blood Urea Nitrogen 48 mg/dL (9-16); C Reactive Protein 0.48 mg/dL (< or = 0.50); Calcium 9.3 mg/dL (8.4-10.2); Carbon Dioxide 24 mmol/L (22-29); Chloride 104 mmol/L (96-108); Estimated Glomerular Filt Rate 43; Glucose Random 286 mg/dL (60-115); Potassium 4.5 mmol/L (3.3-5.1); Sodium 136 mmol/L (135-145)
[2023-12-26 11:06] LABS: Erythrocyte Sedimentation Rate 63 MM/HR (0-15)
--- NOTE | ~2024-08-12 | XR_ITS ---
EXAMINATION: XR FOOT, RIGHT CLINICAL INFORMATION: Rule out osteomyelitis, attention right great toe, nonhealing wound. COMPARISON: MRI right foot of 04/19/2019. TECHNIQUE: 4 views of the right foot. FINDINGS: Fourth and fifth toes as well as distal aspects of respective metatarsals are absent. Remaining proximal to midportions of fourth and fifth metatarsals with attenuation of distal aspects. Ossicles in the soft tissues distal to the fourth metatarsal. Oblique screws traverse the heads of the second and third metatarsals with narrowing and degenerative changes in the second and third MTP joints. There is fusion of the PIP joints of the second and third toes. Advanced destructive changes at the first MTP joint with destruction at the articular surfaces, soft tissue swelling, and multiple small bony fragments and posterior calcifications in the adjacent soft tissues of indeterminate age and etiology. Surgical staple in the proximal shaft of the first metatarsal. Degenerative changes in the tarsometatarsal joints. Surgical clips in the distal leg. Small dorsal and plantar calcaneal spurs. The bones are diffusely demineralized. Degenerative changes in the midfoot. XR/XR foot RT min 3V IMPRESSION: 1. Postsurgical changes as detailed above. 2. Advanced destructive changes at the first MTP joint with destruction at the articular surfaces, soft tissue swelling, and multiple small bony fragments and posterior calcifications in the adjacent soft tissues of indeterminate age and etiology. 3. Recommend correlation with clinical exam and surgical history. Direct correlation with prior images is recommended and if prior images are provided, an addendum will be dictated. MRI should be considered for further evaluation based on the clinical assessment, particularly if there is concern for osteomyelitis.
--- NOTE | ~2024-08-12 | XR_ITS ---
EXAMINATION: XR CHEST CLINICAL INFORMATION: Preprocedure COMPARISON: Previous chest x-ray December [address] May 2023 TECHNIQUE: 2 views of the chest were obtained. FINDINGS: The cardiac silhouette is enlarged. Aortic valve replacement and median sternotomy wires. Lung volumes are low. There may be pulmonary venous redistribution. Lungs are otherwise clear. No pleural effusion or pneumothorax. Degenerative changes of the spine. Findings are similar to December 2022 chest x-ray. XR/XR chest 2V IMPRESSION: Stable chest x-ray exam from December 2022. No evidence for acute disease in the chest.
== END | disposition home or self-care (01) ==
LOC: HO.WCC 08-05 07:54
PROVIDERS: PCP Internal Medicine; Visit Provider Surgery
DX: Z09 Encounter for follow-up examination after completed treatment for conditions other than malignant neoplasm (principal); E11.51 Type 2 diabetes mellitus with diabetic peripheral angiopathy without gangrene; Z89.421 Acquired absence of other right toe(s); Z89.512 Acquired absence of left leg below knee; Z86.31 Personal history of diabetic foot ulcer
CPT/HCPCS: 11042; 11043; 11044; 15275; 17250; 36415; 71046; 73630; 80048; 83036; 85025; 85652; 86140; 87070; 87073; 87076; 87077; 87147; 87185; 87186; 87205; 88305; 88311; 97597; 97602; 99212; 99213; 99214; Q4187